=== PATIENT | female | born 1960 | race Caucasian/White ===

== ENCOUNTER → 2017-08-20 14:42 | Outpatient (CLI) | payer MEDICARE, MEDICAID, SELFPAY ==
[2017-08-20 18:02] LABS: Hematocrit 45.1 % (37-47); Mean Corpuscular Hgb 29.4 pg (27.0-32.0); Mean Corpuscular Volume 94.7 fL (81-99); Mean Platelet Vol. 12.5 fl (6.2-12.0); Platelet Count 231 K/mm3 (150-450); RBC Distribution Width CV 13.1 % (11.6-14.6); RBC Distribution Width SD 44.9 fl (35.1-43.9); Red Blood Count 4.76 M/mm3 (4.2-5.4); White Blood Count 8.9 K/mm3 (4.4-11.0)
[2017-08-20 18:22] LABS: Scan Indicated on CBC? Y/N NO
[2017-08-20 18:24] LABS: AST(SGOT) 17 U/L (15-37); Alanine Aminotransfer ALT/SGPT 18 U/L (13-56); Albumin, Serum 4.1 g/dL (3.2-5.0); Alkaline Phosphatase 91 U/L (45-117); Anion Gap 11 (5-15); BUN 15 mg/dL (7-18); BUN/Creat Ratio 17.5 RATIO (10-20); Calcium,Total 9.1 mg/dL (8.5-10.1); Chloride 105 mmol/L (98-107); Creatinine, Serum 0.86 mg/dL (0.55-1.02); EST Glomerular Filtration Rate 73 mL/min (>60); Est Glom Filt Rate - Afr Amer 88 mL/min (>60); Globulin 4.1 g/dL (2.2-4.2); Glucose 238 mg/dL (74-106); Protein, Total 8.2 g/dL (6.4-8.2); Sodium Level 139 mmol/L (136-145); Thyroid Stim Hormone (TSH) 0.43 uIU/mL (0.358-3.74)
[2017-08-20 18:32] LABS: Hemoglobin A1c 7.5 % (4.2-6.3)
[2017-08-20 18:35] LABS: Vitamin B12 > 2000 pg/mL (211-911)
== END ==
PROVIDERS: Family Provider Family Medicine; PCP Family Medicine; Visit Provider Family Medicine
DX: F32.9 Major depressive disorder, single episode, unspecified (principal); E11.9 Type 2 diabetes mellitus without complications; E53.8 Deficiency of other specified B group vitamins; E55.9 Vitamin D deficiency, unspecified
CPT/HCPCS: 36415; 80053; 82306; 82607; 83036; 84443; 85027

== ENCOUNTER 2017-11-14 23:32 | Emergency (ER) | payer MEDICARE, MEDICAID, SELFPAY ==
[2017-11-14 23:32] VITALS: BP 129/87; PULSE 75; RESP 15; TEMP 36.2; BMI 29.2
[2017-11-14 23:50] LABS: Bedside Glucose 472 mg/dL (70-110)
--- NOTE | 2017-11-14 23:56 | ED.DCSUM_ITS ---
- ER Visit Summary Date of Service: 11/14/17 Chief Complaint: Elevated blood glucose History of Present Illness: The patient is a 57 F here with daughter evaluation elevated blood glucose. Patient zpa-zyummut-xarxdomhl diabetic. She is on metformin thousand milligrams twice daily along with Januvia daily. No missed doses. This is been her regimen for last 2 years. Daughter states today when she came home patient appear to be disorientated, clammy. Vital glucose check is increase from 322 440 at 11 PM. Normal blood glucose in the 120s. Denies any changes in diet. No upper respiratory symptoms. Patient states has increasing thirst. Daughter states this has diarrhea the past 1-2 weeks, 5-6 episodes a day, however patient states last loose stool was yesterday. No recent antibiotics. Nausea without vomiting. No fever, chills, sweats. Patient denies any urinary symptoms. Physical Examination: General: Alert and oriented ?3, no acute distress HEENT: Normocephalic, atraumatic. Dry mucosa membranes Neck: supple, nontender. Cardiovascular: Regular rate and rhythm, no murmurs Respiratory: Normal breath sounds, symmetric, no distress Abdomen: Soft, nontender, nondistended Extremities: Nontender, no edema, pulses intact ?4 Neuro: no focal neurological deficits. Test Results: BG T4 72. Hemoglobin 14. FVC 8.9. Creatinine 1.01. Glucose 421 , anion gap 7. Potassium 4.1. Ketone negative. UA leukocytes 25. Urine culture pending. Emergency Department Course and Treatment: Patient alert oriented ?3 in my evaluation. Due to elevated glucose, DKA workup initiated. This was negative from labs. Normal gap and negative ketones. Due to dry mucosa membranes initially order for 2 L of fluid. However IV stopped working, labs returned noting negative. She is given oral Zofran along with p.o. fluids. Recheck sugars prior to p.o. fluids at 369. She will continue oral fluids I will give her 10 units of subcu insulin, will recheck her sugars. Discussed with patient and daughter, monitor sugars and call PCP for follow-up after the weekend for adjustments of medications as needed. She is to return if any worsening symptoms. Patient is clinically improved. All questions were answered. Treatment Plan: [] Disposition: Discharge Impression: Hyperglycemia- stable This note was generated with [employer] software. It may contain incorrect words, spelling, and punctuation that were not noted in review of the chart prior to signing ED Disposition - Plan for ED Patient: Disposition: Home or Assisted Living Chief Complaint: Hyperglycemia Diagnosis: Hyperglycemia Instructions: ED Hyperglycemia Diabetic Prescriptions: Ondansetron [Zofran Odt] 4 mg PO Q8H PRN PRN #10 tablet PRN Reason: Nausea Referrals: Clemente Randhawa MD [Primary Care Provider] - 3-5 Days Additional Instructions: Monitor your sugars at home. Take your home medications. Follow-up with your doctor for adjustments of medications as needed. Return if any worsening symptoms.
[2017-11-15 00:19] LABS: Absolute Lymphocyte Count 2.49 X10^3/ul (0.83-4.51); Absolute Neutrophil Count 5.5 X10^3/uL (2.0-7.7); Basophil# 0.02 X10^3/uL; Basophil% 0.2 % (0-1); Eosinophil# 0.11 X10^3/uL; Eosinophils% 1.2 % (0-5); Hematocrit 41.7 % (37-47); Lymphocyte # 2.49 X10^3/ul (4.0); Mean Corp Hgb Conc 33.6 g/gl (32-36); Mean Corpuscular Volume 92.5 fL (81-99); Monocyte# 0.76 X10^3/uL; Monocyte% 8.6 % (0-10); Neutrophil # 5.48 X10^3/uL (2.7-7.7); Neutrophil % 61.8 % (47-70); Platelet Count 181 K/mm3 (150-450); RBC Distribution Width CV 12.6 % (11.6-14.6); RBC Distribution Width SD 41.8 fl (35.1-43.9); Red Blood Count 4.51 M/mm3 (4.2-5.4); White Blood Count 8.9 K/mm3 (4.4-11.0)
[2017-11-15 00:24] LABS: POSITIVE COUNT NO; POSITIVE DIFFERENTIAL NO; POSITIVE MORPHOLOGY NO
[2017-11-15 00:34] LABS: Anion Gap 7 (5-15); BUN 10 mg/dL (7-18); BUN/Creat Ratio 9.9 RATIO (10-20); Calcium,Total 8.9 mg/dL (8.5-10.1); Chloride 100 mmol/L (98-107); Creatinine, Serum 1.01 mg/dL (0.55-1.02); EST Glomerular Filtration Rate 60 mL/min (>60); Est Glom Filt Rate - Afr Amer 73 mL/min (>60); Estimated Creatinine Clearance 60.48 ml/min; Glucose 421 mg/dL (74-106); Potassium 4.1 mmol/L (3.5-5.1); Sodium Level 132 mmol/L (136-145)
[2017-11-15 00:35] LABS: Mucous, Urine 0 SEEN /hpf (<or=2+); Red Blood Cells-Urine 0 SEEN /hpf (0-5)
[2017-11-15 00:36] LABS: Glucose, Dipstick 1000 mg/dl (Normal); Ketone-Dipstick 5 mg/dl (Negative); Leukocyte Esterase-Dipstick 25 /ul (Negative); Nitrite-Dipstick Negative (Negative); Occult Blood-Urine 10 /ul (Negative); Protein-Dipstick 15 mg/dl (Negative); Specific Gravity, Urine 1.015 (1.002-1.030); Urine Bilirubin Dipstick Negative (Negative); Urine Clarity Sl. Cloudy (Clear); Urine Urobilinogen Normal (Normal); Urine pH 6.5 (5.0 - 8.0)
[2017-11-15 00:39] LABS: Color, Urine SEE COMMENT BELOW (Yellow)
[2017-11-15 00:41] LABS: Bacteria RARE /hpf (None Seen); Squamous Epithelial Cells - UA 0-5 SEEN /hpf (5-10); White Blood Cells 0-5 SEEN /hpf (0-5)
[2017-11-15 00:42] LABS: Amorphous Sediment R
[2017-11-15 01:16] LABS: Bedside Glucose 369 mg/dL (70-110)
[2017-11-15] MEDS: Ondansetron ODT 4 MG Tablet 8 MG PO (01:19)
[2017-11-15] MEDS: Insulin Lispro 100 UNIT/ML INSULN.PEN 10 UNIT SC (01:22)
[2017-11-15 02:45] LABS: Bedside Glucose 330 mg/dL (70-110)
[2017-11-15 02:53] VITALS: BP 90/61; PULSE 78; RESP 18; O2SAT 95
--- NOTE | 2017-11-15 02:54 | ED.RN ---
PT LOST HER IV SO NO FURTHERIV FLUIDS OR ZOFRAN GIVEN. AWARE.
== END 2017-11-15 02:54 | disposition home or self-care (01) ==
PROVIDERS: Emergency Provider Emergency Medicine; Family Provider Family Medicine; PCP Family Medicine
DX: E11.65 Type 2 diabetes mellitus with hyperglycemia (principal); G20 Parkinson's disease; Z79.84 Long term (current) use of oral hypoglycemic drugs; Z79.899 Other long term (current) drug therapy
CPT/HCPCS: 80048; 81001; 82009; 82962; 85025; 87086; 87088; 99284; J7030; A4216; J2405

== ENCOUNTER → 2017-11-26 12:44 | Outpatient (CLI) | payer MEDICARE, MEDICAID, SELFPAY ==
[2017-11-26 14:06] LABS: Bacteria 0 SEEN /hpf (None Seen)
[2017-11-26 14:18] LABS: Anion Gap 7 (5-15); BUN 13 mg/dL (7-18); BUN/Creat Ratio 14.6 RATIO (10-20); Calcium,Total 8.8 mg/dL (8.5-10.1); Chloride 103 mmol/L (98-107); Creatinine, Serum 0.89 mg/dL (0.55-1.02); EST Glomerular Filtration Rate 69 mL/min (>60); Est Glom Filt Rate - Afr Amer 84 mL/min (>60); Glucose 166 mg/dL (74-106); Potassium 3.9 mmol/L (3.5-5.1); Sodium Level 137 mmol/L (136-145)
[2017-11-26 14:30] LABS: Color, Urine Amber (Yellow); Glucose, Dipstick Normal (Normal); Ketone-Dipstick 15 mg/dl (Negative); Leukocyte Esterase-Dipstick 25 /ul (Negative); Nitrite-Dipstick Negative (Negative); Occult Blood-Urine 10 /ul (Negative); Protein-Dipstick 30 mg/dl (Negative); Urine Clarity Sl. Cloudy (Clear); Urine Urobilinogen 1 mg/dl (Normal)
[2017-11-26 14:32] LABS: Urine Bilirubin Dipstick 3 mg/dL (Negative)
[2017-11-26 14:49] LABS: Calcium Oxalate Crystals Ur 2+ /hpf (<or=2+); Mucous, Urine 2+ /hpf (<or=2+); Red Blood Cells-Urine 0-5 SEEN /hpf (0-5); Squamous Epithelial Cells - UA 0-5 SEEN /hpf (5-10); White Blood Cells 0-5 SEEN /hpf (0-5)
== END ==
PROVIDERS: Family Provider Family Medicine; PCP Family Medicine; Visit Provider Family Medicine
DX: E11.9 Type 2 diabetes mellitus without complications (principal); R82.90 Unspecified abnormal findings in urine
CPT/HCPCS: 36415; 80048; 81001; 87086; 87088

== ENCOUNTER → 2017-12-05 09:31 | Outpatient (CLI) | payer MEDICARE, MEDICAID, SELFPAY ==
--- NOTE | 2017-12-05 09:36 | RAD_ITS ---
STUDY: X-RAY - LEFT HAND REASON FOR EXAM: Female, 57 years old. Osteoarthritic change. TECHNIQUE: 2 view(s) of the hand. COMPARISON: None. FINDINGS: There is joint space narrowing of the radiocarpal articulation consistent with degenerative arthrosis. Normal distal radioulnar joint. Normal visualized carpal bones. Normal carpal articulations There is degenerative arthrosis of the carpometacarpal (CMC) articulation of the thumb. Normal second through fifth carpometacarpal joints. Normal metacarpi. There is degenerative arthrosis of the metacarpophalangeal (MCP) joints. Normal interphalangeal joint of the thumb. Normal proximal and distal phalanges of the thumb. Normal metacarpophalangeal joints of the second through fifth fingers. Normal proximal and distal interphalangeal joints of the second through fifth fingers. Normal phalanges of the second through fifth fingers. The soft tissue structures are unremarkable. RAD/Hand 2 Views IMPRESSION: Mild arthritic changes of the left hand. Electronically Signed: Lefty Nichole DO at 17:31 EDT Tel [phone], Service support ,
--- NOTE | 2017-12-05 09:36 | RAD_ITS ---
STUDY: X-RAY - RIGHT HAND REASON FOR EXAM: Female, 57 years old. Osteoarthritic change. TECHNIQUE: 2 view(s) of the hand. COMPARISON: None. FINDINGS: There is joint space narrowing of the radiocarpal articulation consistent with degenerative arthrosis. Normal distal radioulnar joint. Normal visualized carpal bones. Normal carpal articulations There is degenerative arthrosis of the carpometacarpal (CMC) articulation of the thumb. Normal second through fifth carpometacarpal joints. Normal metacarpi. There is degenerative arthrosis of the metacarpophalangeal (MCP) joints. Normal interphalangeal joint of the thumb. Normal proximal and distal phalanges of the thumb. Normal metacarpophalangeal joints of the second through fifth fingers. Normal proximal and distal interphalangeal joints of the second through fifth fingers. Normal phalanges of the second through fifth fingers. The soft tissue structures are unremarkable. RAD/Hand 2 Views IMPRESSION: Minimal arthritic changes of the hand and wrist. Electronically Signed: Lefty Nichole DO at 17:31 EDT Tel [phone], Service support ,
--- NOTE | 2017-12-05 09:36 | RAD_ITS ---
STUDY: X-RAY - RIGHT FOOT CLINICAL: Female, 57 years old. Osteoarthritic change. TECHNIQUE: 2 view(s) of the foot. COMPARISON: None. FINDINGS: There is an enthesophyte involving the posterior superior calcaneus at the site of insertion of the Achilles tendon. Normal talus and tarsal bones. Normal visualized subtalar, talonavicular, calcaneocuboid, tarsal and tarsometatarsal articulations. Normal metatarsi. There is mild degenerative arthrosis of the metatarsophalangeal joint of the hallux . Normal tibial and fibular sesamoid bones. Normal phalanges of the great toe. Normal second through fifth metatarsophalangeal joints. There is arthrosis of interphalangeal joints of the lesser toes. There is no fracture or dislocation. The soft tissue structures are unremarkable. 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 Electronically Signed: Lefty Nichole DO at 17:30 EDT Tel [phone], Service support ,
--- NOTE | 2017-12-05 09:36 | RAD_ITS ---
STUDY: X-RAY - LEFT FOOT CLINICAL: Female, 57 years old. Osteoarthritic changes. TECHNIQUE: 2 view(s) of the foot. COMPARISON: None. FINDINGS: Normal talus and tarsal bones. There are enthesophytes at the insertions of the Achilles tendon and plantar aponeurosis upon an otherwise normal calcaneus. Normal visualized subtalar, talonavicular, calcaneocuboid, tarsal and tarsometatarsal articulations. Normal first through fourth metatarsi. There is a healed fracture of the distal fifth metatarsal. There is mild degenerative arthrosis of the metatarsophalangeal joint of the hallux . Normal tibial and fibular sesamoid bones. Normal interphalangeal joint of the great toe. Normal phalanges of the great toe. Normal second through fifth metatarsophalangeal joints. There is arthrosis of the interphalangeal joints of the lesser toes. Normal phalanges of the lesser toes. The soft tissue structures are unremarkable. RAD/Foot 2 Views IMPRESSION: Degenerative changes left foot. Electronically Signed: Lefty Nichole DO at 18:37 EDT Tel [phone], Service support ,
== END ==
PROVIDERS: Family Provider Family Medicine; PCP Family Medicine
DX: M19.042 Primary osteoarthritis, left hand (principal); M19.041 Primary osteoarthritis, right hand; M19.072 Primary osteoarthritis, left ankle and foot; M19.071 Primary osteoarthritis, right ankle and foot
CPT/HCPCS: 73120; 73620

== ENCOUNTER → 2019-01-27 14:06 | Outpatient (CLI) | payer MEDICARE, MEDICAID, SELFPAY ==
[2018-10-02 13:07] VITALS: BMI 29.2
[2019-01-27 16:19] LABS: Albumin, Serum 4.3 g/dL (3.2-5.0); BUN 8 mg/dL (7-18); BUN/Creat Ratio 9.3 RATIO (10-20); Creatinine, Serum 0.86 mg/dL (0.55-1.02); EST Glomerular Filtration Rate 72 mL/min (>60); Est Glom Filt Rate - Afr Amer 87 mL/min (>60); Glucose 185 mg/dL (74-106); Protein, Total 8.6 g/dL (6.4-8.2)
[2019-01-27 16:20] LABS: AST(SGOT) 22 U/L (15-37); Alanine Aminotransfer ALT/SGPT 16 U/L (13-56); Alkaline Phosphatase 102 U/L (45-117); Anion Gap 9 (5-15); Calcium,Total 9.3 mg/dL (8.5-10.1); Chloride 100 mmol/L (98-107); Cholesterol 162 mg/dL (200); Globulin 4.3 g/dL (2.2-4.2); High Density Lipoprotein 45 mg/dL; Potassium 3.5 mmol/L (3.5-5.1); Sodium Level 137 mmol/L (136-145); Thyroid Stim Hormone (TSH) 0.76 uIU/mL (0.358-3.74); Triglycerides 211 mg/dL; Very Low Density Lipoprotein 42 mg/dL (5-40)
== END ==
PROVIDERS: Family Provider Family Medicine; PCP Family Medicine; Referring Provider Family Medicine; Visit Provider Family Medicine
DX: E11.9 Type 2 diabetes mellitus without complications (principal)
CPT/HCPCS: 36415; 80053; 80061; 84443

== ENCOUNTER 2019-03-04 01:45 | Inpatient (IN) | payer MEDICARE, MEDICAID, SELFPAY ==
[2018-10-02 13:07] VITALS: BMI 29.2
[2019-03-04] VITALS (36 sets, daily range): BP systolic 64–111; BP diastolic 36–85; PULSE 85–105; RESP 10–22; TEMP 36.4–37.1; O2SAT 90–100; BMI 31.0; BMI 31.1
--- NOTE | 2019-03-04 01:51 | CT_ITS ---
STUDY: CT BRAIN WITHOUT CONTRAST REASON FOR EXAM: Female, 58 years old. Trauma RADIATION DOSAGE (If Supplied By Facility): CTDIvol = ( 44.99 ) mGy, DLP = ( 812.98 ) mGycm TECHNIQUE: Transaxial CT imaging of the brain was performed without administration of intravenous contrast material. Individualized dose optimization techniques were used for this CT. COMPARISON: No relevant priors. FINDINGS: Normal soft tissue structures. There is hyperostosis frontalis internus. Normal size ventricles and extra-axial spaces for the patient's age. Normal white matter tracts of the cerebral hemispheres. Normal basal ganglia and thalami. Normal brainstem. Normal cerebellum. 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 An area of prior infarct or neural glial cystic structure could also be considered. There is no intracranial hemorrhage. There are no findings of an acute ischemic infarction. Normal visualized paranasal sinuses. CT/Brain/Head without Contrast IMPRESSION: No acute territorial infarct or intracranial hemorrhage identified. If patient's symptomology persists or there is continuing clinical concern MRI or follow-up CT scan performed. Electronically Signed: Mahesh Richter, at 3:04 EDT Tel , Service support ,
--- NOTE | 2019-03-04 01:51 | RAD_ITS ---
STUDY: X-RAY CHEST REASON FOR EXAM: Female, 58 years old. Hypotension TECHNIQUE: Single frontal view of the chest. COMPARISON: None. FINDINGS: The lungs are clear and expanded. There is no demonstrated pleural abnormality. Normal size heart. Normal mediastinum and ozzie. Normal visualized pulmonary arteries. Normal visualized aortic arch and descending thoracic aorta. There are diffuse degenerative changes of the visualized thoracic spine. There is degenerative osteoarthritis of the bilateral shoulders. There is no demonstrated abnormality of the visualized soft tissue structures of the upper abdomen. RAD/Chest 1 View (Portable) IMPRESSION: Degenerative changes, as described above. No demonstrated acute cardiopulmonary process. Electronically Signed: Mahesh Richter, at 2:54 EDT Tel , Service support ,
--- NOTE | 2019-03-04 01:52 | EKG12_ITS ---
Test Reason : HYPOTENSION Blood Pressure : / mmHG Vent. Rate : 095 BPM Atrial Rate : 095 BPM P-R Int : 146 ms QRS Dur : 078 ms QT Int : 348 ms P-R-T Axes : 041 039 053 degrees QTc Int : 437 ms Normal sinus rhythm Normal ECG Confirmed by JEM CORBETT, ISAI ([id number]), scientific publications editor [employer]OR[employer] ([id number]) on 03/05/2019 1:27:09 PM Referred By: Mason Stone Confirmed By:CAROLINA PARISH MD
--- NOTE | 2019-03-04 01:52 | CT_ITS ---
STUDY: CT CERVICAL SPINE WITHOUT CONTRAST REASON FOR EXAM: Female, 58 years old. Trauma RADIATION DOSAGE (If Supplied By Facility): CTDIvol = ( 27.58 ) mGy, DLP = ( 500.98 ) mGycm TECHNIQUE: High resolution transaxial imaging was performed without contrast material. Sagittal and coronal images were reconstructed. Individualized dose optimization techniques were used for this CT. COMPARISON: September 18, 2015 FINDINGS: Multilevel degenerative changes. Straightening of the normal cervical lordosis. Facet hypertrophy. No acute fracture or subluxation. Moderate neural foraminal narrowing on the left C3-C4. Normal visualized soft tissue structures. CT/Spine Cervical without Contras IMPRESSION: Multilevel degenerative changes. No acute fractures or subluxation. Electronically Signed: Mahesh Richter, at 3:08 EDT Tel , Service support ,
[2019-03-04] MEDS: 0.9% Normal Saline 1,000 ML 1000 ML IV (01:56)
[2019-03-04 01:59] LABS: Absolute Lymphocyte Count 3.04 X10^3/uL (0.83-4.51); Absolute Neutrophil Count 8.4 X10^3/uL (2.0-7.7); Basophil# 0.05 X10^3/uL; Basophil% 0.4 % (0-1); Eosinophil# 0.08 X10^3/uL; Eosinophils% 0.6 % (0-5); Hematocrit 40.9 % (37-47); Hemoglobin 12.9 g/dL (12.0-15.0); Lymphocyte # 3.04 X10^3/ul (4.0); Lymphocyte % 23.9 % (19-41); Mean Corp Hgb Conc 31.5 g/dL (32-36); Mean Corpuscular Hgb 30.9 pg (27.0-32.0); Mean Corpuscular Volume 98.1 fL (81-99); Mean Platelet Vol. 12.3 fl (6.2-12.0); Monocyte# 1.09 X10^3/uL; Monocyte% 8.6 % (0-10); NRBC Flagged by Analyzer 0 % (0-5); Neutrophil # 8.42 X10^3/uL (2.7-7.7); Neutrophil % 66.2 % (47-70); Platelet Count 242 K/mm3 (150-450); RBC Distribution Width CV 12.2 % (11.6-14.6); RBC Distribution Width SD 44.5 fl (35.1-43.9); Red Blood Count 4.17 M/mm3 (4.2-5.4); White Blood Count 12.7 K/mm3 (4.4-11.0)
[2019-03-04 02:23] LABS: ALB/GLOB Ratio 0.9 RATIO (0.9-2.4); AST(SGOT) 7 U/L (15-37); Alanine Aminotransfer ALT/SGPT 8 U/L (13-56); Albumin, Serum 3.7 g/dL (3.2-5.0); Alkaline Phosphatase 97 U/L (45-117); Anion Gap 8 (5-15); BUN 73 mg/dL (7-18); BUN/Creat Ratio 18.8 RATIO (10-20); Calcium,Total 8.6 mg/dL (8.5-10.1); Chloride 103 mmol/L (98-107); Creatinine, Serum 3.89 mg/dL (0.55-1.02); EST Glomerular Filtration Rate 13 mL/min (>60); Est Glom Filt Rate - Afr Amer 15 mL/min (>60); Estimated Creatinine Clearance 15.52 ml/min; Globulin 3.9 g/dL (2.2-4.2); Glucose 120 mg/dL (74-106); Potassium 5.3 mmol/L (3.5-5.1); Protein, Total 7.6 g/dL (6.4-8.2); Sodium Level 137 mmol/L (136-145)
[2019-03-04 02:25] LABS: Glucose, Dipstick 100 mg/dl (Normal); Ketone-Dipstick 5 mg/dl (Negative); Leukocyte Esterase-Dipstick 25 /ul (Negative); Nitrite-Dipstick Negative (Negative); Occult Blood-Urine 10 /ul (Negative); Protein-Dipstick 30 mg/dl (Negative); Specific Gravity, Urine 1.025 (1.002-1.030); Urine Urobilinogen Normal (Normal)
[2019-03-04 02:30] LABS: Lactic Acid 4.6 mmol/L (0.4-2.0)
[2019-03-04 02:33] LABS: Color, Urine Yellow (Yellow); Urine Bilirubin Dipstick 3 mg/dL (Negative); Urine Clarity Sl Cloudy (Clear)
[2019-03-04] MEDS: 0.9% Normal Saline 1,000 ML 999 ML IV ×2 (02:33→02:38)
[2019-03-04 02:34] LABS: Mucous, Urine 1+ /hpf (<or=2+); Squamous Epithelial Cells - UA 0-5 SEEN /hpf (5-10)
[2019-03-04 02:35] LABS: Amorphous Sediment 1+; Bacteria RARE /hpf (None Seen); Coarse Granular Cast 0-5 SEEN /lpf (0-5 /lpf); Hyaline Cast 0-5 SEEN /lpf (0-5); Red Blood Cells-Urine 0-5 SEEN /hpf (0-5); White Blood Cells 0-5 SEEN /hpf (0-5)
[2019-03-04 02:44] LABS: CPK Total, Creatine Kinase 51 U/L (26-192)
--- NOTE | 2019-03-04 02:45 | ED.DCSUM_ITS ---
- ER Visit Summary Date of Service: 03/04/19 Chief Complaint: Weakness History of Present Illness: The patient is a 58 F presenting with generalized weakness. Patient states this has been ongoing for the past 3 days. She states she has been lightheaded. States when she tries to stand she feels lightheaded and has fallen 3 times. She denies injury with falls. She has hit her head. She denies loss of consciousness. Denies syncope. Denies chest pain or shortness of breath. Denies abdominal pain. Her blood sugar has been reading high at home. Family states that she has been hallucinating and has been confused. She denies fever. Denies other complaints. Physical Examination: Vitals are stable. Blood pressure 91/54, heart rate 95, pulse ox 96% on room air. Patient is afebrile. Alert no acute distress. HEENT exam is unremarkable. Neck is supple, nontender Lungs are clear and equal bilaterally. Heart is regular rate and rhythm. Abdomen is soft nontender nondistended. No guarding or rebound Extremities are unremarkable. Skin is warm and dry. NIH 2: LOC questions, decreased sensation left arm Remainder of exam is unremarkable. Emergency Department Course and Treatment: Patient was given IV fluids. EKG is sinus rhythm rate of 95 with no acute ischemic changes. CBC shows white count 12.7. Chemistries show potassium 5.3, glucose 120, BUN 73, creatinine 3.89. Urinalysis unremarkable. Troponin is negative. CK normal. Acetone negative. Lactic acid 4.6. Blood cultures were sent. Chest x-ray shows no acute process. CT head shows no acute territorial infarct or intracranial hemorrhage identified. CT cervical spine shows multilevel degenerative changes. No acute fractures or subluxation. She continues to be hypotensive after 30 cc/kg bolus. She was consented for central line placement. Right IJ was placed with Seldinger technique. She was given Levaquin, tobramycin, vancomycin per protocol for septic shock with unknown source. Discussed with the hospitalist for admission. Disposition: Admission Impression: Septic shock, DEBORA, change in mental status This note was generated with [employer] software. It may contain incorrect words, spelling, and punctuation that were not noted in review of the chart prior to signing ED Disposition - Plan for ED Patient:
--- NOTE | 2019-03-04 04:11 | RAD_ITS ---
STUDY: X-RAY CHEST REASON FOR EXAM: Female, 58 years old. Line placement. TECHNIQUE: AP portable chest. COMPARISON: 03/04/2019 at 2:17 AM. FINDINGS: Right internal jugular central line tip overlying the right atrium. The lungs are clear and expanded. There is no demonstrated pleural abnormality. No pneumothorax. Normal size heart. Normal mediastinum and ozzie. Normal visualized pulmonary arteries. Normal visualized aortic arch and descending thoracic aorta. Osseous structures unchanged. There is no demonstrated abnormality of the visualized soft tissue structures of the upper abdomen. RAD/CXR for Line Placement IMPRESSION: No acute cardiopulmonary disease. Right sided central line tip overlying the base of the right atrium. Electronically Signed: Stephon Hayden MD at 4:55 EDT , Service support ,
--- NOTE | 2019-03-04 04:18 | HP.PCM_ITS ---
Problem List (1) Septic shock Status: Acute History of Present Illness Date of Admission: 03/04/19 Chief Complaint: lightheadness with multiple falls The patient is a 58 year old F with a significant history of pseudobulbar affect; diabetes mellitus; hypertension; and Parkinson's disease who presented to the emergency department with lightheadedness and multiple falls that started about 2 days ago. She reports falling multiple times and hitting her bed and also the wall. Associated with her symptoms is loose stools; confusion and visual hallucinations. Patient was confused to the extent that she could not identify one of her daughters. She has been noted to be having jerking movements. Patient reports decreased urine output. At the emergency department patient was found to have severely low blood pressure and she received IV fluids per septic shock protocol. Also her lactic acid was noted to be more than 4. She had elevated white counts and severely elevated creatinine. Initial [facility] emergency department was scored as 2 because of failure to answer all level of conscious question appropriately and with sensation changes to her left upper extremity 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 Parkinson disease G20 Hypertension I10 Lupus L93.0 Sleep apnea G47.30 H/O: hysterectomy Z98.890, Z90.710 Allergies indomethacin [From Indocin] Allergy (Verified 10/02/18 13:01) Rash indomethacin sodium [From Indocin] Allergy (Verified 10/02/18 13:01) Rash Penicillins Allergy (Verified 10/02/18 13:01) Rash clarithromycin [From Biaxin] Adverse Reaction (Verified 10/02/18 13:01) Diarrhea Home Medications: Ambulatory Orders Medication Instructions Recorded Propranolol HCl [Inderal LA (Beta 60 mg PO BID 03/17/13 Connor)] Rasagiline Mesylate [Azilect] 1 mg PO DAILY 03/17/13 metFORMIN (XR) [Glucophage Xr] 1,000 mg PO BID 03/17/13 Nuedexta 20/10 1 tab PO DAILY 03/18/13 Carbidopa/Levodopa [Sinemet Cr 1 tab PO BID 01/15/15 25-100 Tablet] morphine SR tablet [Ms Contin] 15 mg PO BID 01/15/15 Carbidopa/Levodopa/Entacapone 1 ea PO BID 05/21/16 [Stalevo 150 Tablet] Oxycodone HCl/Acetaminophen 1 - 2 tab PO Q6H PRN PRN #40 tab 02/05/17 [Percocet 5/325] Ondansetron [Zofran Odt] 4 mg PO Q8H PRN PRN #10 tablet 11/15/17 Clonazepam 1 mg PO QHS 03/04/19 Dulaglutide [Trulicity] 0.75 mg SQ QWEEK 03/04/19 Escitalopram Oxalate [Lexapro] 10 mg PO DAILY 03/04/19 Esomeprazole Mag Trihydrate 40 mg PO DAILY 03/04/19 [Nexium] Gabapentin 600 mg PO TID 03/04/19 Glimepiride [Amaryl] 1 mg PO DAILY 03/04/19 Lisinopril 5 mg PO DAILY 03/04/19 Surgical History: Surgical History (Last Reviewed 03/04/19 @ 06:20 by Mason Stone MD) History of cholecystectomy Z90.49 History of knee surgery Z98.890 History of back surgery Z98.890 x3 S/P cholecystectomy Z90.49 S/P left knee surgery Z98.890 Status post arthroscopy of hip Z98.890 left 02/05/17 Status post carpal tunnel release Z98.890 right and left 10/18/11 Surgical History: cholecystectomy, hysterectomy Psychiatric History: No pertinent psych hx Lives: With Family Smoking Status: Never smoker Alcohol: None - *Family History Maternal Family History: Family History (Last Reviewed 03/04/19 @ 06:30 by Mason Stone MD) Brother Heart disease Mother Osteoarthritis Review of Systems Constitutional: Reports: Anorexia. Denies: Chills, Fever, Weight Change HEENT: Denies: Head Aches, Sinus Congestion, Sinus Drainage Cardiovascular: Reports: Light Headedness. Denies: Chest Pain, Palpitations Respiratory: Denies: Cough, Shortness of breath at rest, Sputum production Gastrointestinal: Reports: Abdominal Pain, Diarrhea. Denies: Nausea, Vomiting Genitourinary: Reports: Frequency - decreased frequency. Denies: Dysuria Musculoskeletal: Denies: Joint Pain, Joint Tenderness Skin: Denies: Rash, Wounds Neurological: Reports: Confusion. Denies: Focal weakness, Numbness, Tingling Psychiatric: Denies: Anxiety, Depression, Homicidal Ideations, Suicidal Ideations Hematologic/ Lymphatic: Denies: Easy Bruising, Easy Bleeding VTE Information - Inpt Only VTE Present on Admission: No VTE Mechan Device Prophylaxis: None VTE Pharm Prophylaxis ordered?: Yes Patient Problems: Active and Suspected Problems (Last Reviewed 03/04/19 @ 06:29 by Mason Stone MD) Septic shock (Acute) - Physical Exam General: Alert, Cooperative, - - Patient knows the month but not the year. She spontaneous mentioned her name, stating her last name as her maiden name and was corrected by family. HEENT: Atraumatic, PERRLA, EOMI, Normocephalic Neck: Supple, No JVD, Negative Carotid Bruits Lungs: Clear to auscultation, Normal air movement Cardiovascular: Regular rate, No murmurs Abdomen: Bowel Sounds Present, Soft, Non Tender Extremities: No edema, Capillary Refill Less than 3 Seconds Skin: No rashes, No breakdown, - - cold extremities; upper and lower Musculoskeletal: No Tenderness to Palpation of Joints or Extremities Neurological: Cranial nerves II-XII grossly intact, - - Decreased sensation to left extremities Psych/Mental Status: Normal Affect, Appropriate Vital Signs Temp Pulse Resp BP Pulse Ox 98.1 F 88 18 72/48 L 98 03/04/19 02:23 03/04/19 03:13 03/04/19 03:13 03/04/19 03:13 03/04/19 03:13 Oxygen Delivery Method Room Air Weight: 89.9 kg Body Mass Index (BMI) 31.0 Finger Stick Blood Glucose 330 Intake and Output for Last 24 Hours 03/02/19 03/03/19 03/04/19 23:59 23:59 23:59 Intake Total 1000 / 1000 Balance 1000 / 1000 Laboratory Tests Past 24 Hrs 03/04/19 03/04/19 03/04/19 01:52 01:52 01:52 WBC 12.7 H RBC 4.17 L Hgb 12.9 Hct 40.9 MCV 98.1 MCH 30.9 MCHC 31.5 L RDW Std Deviation 44.5 H RDW Coeff of Arben 12.2 Plt Count 242 MPV 12.3 H Immature Gran % (Auto) 0.300 Neut % (Auto) 66.2 Lymph % (Auto) 23.9 [place] % (Auto) 8.6 Eos % (Auto) 0.6 Baso % (Auto) 0.4 Absolute Neuts (auto) 8.4 H Absolute Lymphs (auto) 3.04 Nucleated RBC % 0 Sodium 137 Potassium 5.3 H Chloride 103 Carbon Dioxide 26.0 Anion Gap 8 BUN 73 H Creatinine 3.89 H Estim Creat Clear Calc 15.52 Est GFR (MDRD) Af Amer 15 L Est GFR (MDRD) Non-Af 13 L BUN/Creatinine Ratio 18.8 Glucose 120 H Lactic Acid 4.6 H* Calcium 8.6 Total Bilirubin 0.50 AST 7 L ALT 8 L Alkaline Phosphatase 97 Total Creatine Kinase Troponin I < 0.015 Total Protein 7.6 Albumin 3.7 Globulin 3.9 Albumin/Globulin Ratio 0.9 Urine Color Urine Clarity Urine pH Ur Specific [place] Urine Protein Urine Glucose (UA) Urine Ketones Urine Occult Blood Urine Nitrite Urine Bilirubin Urine Urobilinogen Ur Leukocyte Esterase Urine RBC Urine WBC Ur Squamous Epith Cells Amorphous Sediment Urine Bacteria Hyaline Casts Coarse Granular Casts Urine Mucus Acetone Level 03/04/19 03/04/19 03/04/19 01:52 01:52 02:10 WBC RBC Hgb Hct MCV MCH MCHC RDW Std Deviation RDW Coeff of Arben Plt Count MPV Immature Gran % (Auto) Neut % (Auto) Lymph % (Auto) [place] % (Auto) Eos % (Auto) Baso % (Auto) Absolute Neuts (auto) Absolute Lymphs (auto) Nucleated RBC % Sodium Potassium Chloride Carbon Dioxide Anion Gap BUN Creatinine Estim Creat Clear Calc Est GFR (MDRD) Af Amer Est GFR (MDRD) Non-Af BUN/Creatinine Ratio Glucose Lactic Acid Calcium Total Bilirubin AST ALT Alkaline Phosphatase Total Creatine Kinase 51 Troponin I Total Protein Albumin Globulin Albumin/Globulin Ratio Urine Color Yellow Urine Clarity Sl Cloudy Urine pH 5.0 Ur Specific [place] 1.025 Urine Protein 30 H Urine Glucose (UA) 100 H Urine Ketones 5 H Urine Occult Blood 10 H Urine Nitrite Negative Urine Bilirubin 3 H Urine Urobilinogen Normal Ur Leukocyte Esterase 25 H Urine RBC 0-5 SEEN Urine WBC 0-5 SEEN Ur Squamous Epith Cells 0-5 SEEN Amorphous Sediment 1+ Urine Bacteria RARE Hyaline Casts 0-5 SEEN Coarse Granular Casts 0-5 SEEN Urine Mucus 1+ Acetone Level NEGATIVE Assessment/Plan All Active Problems (Last Reviewed 03/04/19 @ 06:29 by Mason Stone MD) Septic shock (Acute) The patient is a 58 year old F with a significant history of pseudobulbar affect; diabetes mellitus; hypertension; and Parkinson's disease who presented to the emergency department with lightheadedness and multiple falls; loose stools; jerking movements; confusion; visual hallucinations; hypotension; leukocytosis; lactic acid of 4.6;: severely elevated creatinine consistent with septic shock without a clear etiology. Septic shock with unclear etiology Different diagnoses include cardiogenic shock; hypovolemic shock; hypotension secondary to medications; Shy-Drager syndrome or other. She reports that typically she is not hypotensive Received vancomycin; Levaquin and tobramycin emergency department. We will continue patient on vancomycin. Start aztreonam. Of note patient has allergy to penicillin where she breaks into hives. Last time she took penicillin was when she was about 5 years old Received IV fluids per septic shock protocol. Continue normal saline infusion at maintenance rate. Get surface echo Trend CBC and BMP Blood culture was obtained at the emergency department; follow. Get urine culture. Trend lactic acid Hold home metformin which could also be contributing to lactic acidosis. Hold home hypertensive medication Hold home morphine. We will continue oxycodone for chronic pain. Systems Developer consult DEBORA On presentation her creatinine was 3.89. Review of old records shows creatinine baseline around 0.85. BUN over creatinine is 18.8. Likely prerenal leading to ATN and/or ATN from toxic effects of sepsis Received normal saline bolus in the emergency department per septic shock protocol Maintenance normal saline infusion continued Trend BMP Avoid nephrotoxic's. Hyperkalemia She reports taking Lisinopril at home and this could contribute to her hyperkalemia Also her hyperkalemia could be from renal failure Received IVF per septic shock protocol. Continue maintenance IVF Trend BMP Diabetes Mellitus Presentation her blood glucose was within goal Hold home antihyperglycemic regimen. Accu-Chek qCHS and correction scale insulin ordered. Parkinson's disease Stalevo and Sinemet continued Depression and anxiety Lexapro continued GERD Protonix continued Neuropathy Will de-escalate dose of gabapentin due to DEBORA. Pseudobulbar effect Nuedexta continue DVT prophylaxis Subcutaneous Lovenox Code Visit Inpatient E&M: 43953 Init Hosp L3
[2019-03-04] MEDS: Dextrose 50%-Water 25 GM/50 ML DISP.SYRIN IV (04:30)
[2019-03-04] MEDS: levoFLOXacin IV 750 MG/150 ML BAG 100 MG IV (04:35)
--- NOTE | 2019-03-04 05:31 | RAD_ITS ---
STUDY: X-RAY CHEST REASON FOR EXAM: Female, 58 years old. Line placement TECHNIQUE: Single frontal view of the chest. COMPARISON: March 04, 2019 FINDINGS: EKG leads artifacts. Right internal jugular catheter tip projects over the right atrium. There has been some retraction from prior study. The lungs are clear and expanded. There is no demonstrated pleural abnormality. Normal size heart. Normal mediastinum and ozzie. Normal visualized pulmonary arteries. Normal visualized aortic arch and descending thoracic aorta. There are diffuse degenerative changes of the visualized thoracic spine. There is degenerative osteoarthritis of the bilateral shoulders. There is no demonstrated abnormality of the visualized soft tissue structures of the upper abdomen. RAD/CXR for Line Placement IMPRESSION: There is been some retraction of the internal jugular catheter on the right. The tip now projects over the upper right atrium just inferior to the cavoatrial junction. No pneumothorax identified. No acute cardiopulmonary disease. Electronically Signed: Mahesh Neelam, at 5:55 EDT Tel , Service support ,
--- NOTE | 2019-03-04 05:37 | SEPSISNOTE ---
Sepsis Note - Physical Exam/Vitals Subjective: Follow up of septic shock Objective: Brain CT 03/04/19 01:51 IMPRESSION: No acute territorial infarct or intracranial hemorrhage identified. If patient's symptomology persists or there is continuing clinical concern MRI or follow-up CT scan performed. Electronically Signed: Mahesh Trotterford, at 3:04 EDT Tel , Service support , Chest X-Ray 03/04/19 01:51 IMPRESSION: Degenerative changes, as described above. No demonstrated acute cardiopulmonary process. Electronically Signed: Mahesh Trotterford, at 2:54 EDT Tel , Service support , Cervical Spine CT 03/04/19 01:52 IMPRESSION: Multilevel degenerative changes. No acute fractures or subluxation. Electronically Signed: Mahesh Neelam, at 3:08 EDT Tel , Service support , Chest X-Ray 03/04/19 04:11 IMPRESSION: No acute cardiopulmonary disease. Right sided central line tip overlying the base of the right atrium. Electronically Signed: Stephon Hayden MD at 4:55 EDT , Service support , Temp Pulse Resp BP Pulse Ox 98.5 F 96 16 83/57 L 95 03/04/19 05:27 03/04/19 05:27 03/04/19 05:27 03/04/19 05:27 03/04/19 05:27 03/04/19 03/04/19 03/04/19 02:10 01:52 01:52 WBC RBC Hgb Hct MCV MCH MCHC RDW Std Deviation RDW Coeff of Arben Plt Count MPV Immature Gran % (Auto) Neut % (Auto) Lymph % (Auto) [place] % (Auto) Eos % (Auto) Baso % (Auto) Absolute Neuts (auto) Absolute Lymphs (auto) Nucleated RBC % Sodium Potassium Chloride Carbon Dioxide Anion Gap BUN Creatinine Estim Creat Clear Calc Est GFR (MDRD) Af Amer Est GFR (MDRD) Non-Af BUN/Creatinine Ratio Glucose Lactic Acid Calcium Total Bilirubin AST ALT Alkaline Phosphatase Total Creatine Kinase 51 Troponin I Total Protein Albumin Globulin Albumin/Globulin Ratio Urine Color Yellow Urine Clarity Sl Cloudy Urine pH 5.0 Ur Specific [place] 1.025 Urine Protein 30 H Urine Glucose (UA) 100 H Urine Ketones 5 H Urine Occult Blood 10 H Urine Nitrite Negative Urine Bilirubin 3 H Urine Urobilinogen Normal Ur Leukocyte Esterase 25 H Urine RBC 0-5 SEEN Urine WBC 0-5 SEEN Ur Squamous Epith Cells 0-5 SEEN Amorphous Sediment 1+ Urine Bacteria RARE Hyaline Casts 0-5 SEEN Coarse Granular Casts 0-5 SEEN Urine Mucus 1+ Acetone Level NEGATIVE 03/04/19 03/04/19 03/04/19 01:52 01:52 01:52 WBC 12.7 H RBC 4.17 L Hgb 12.9 Hct 40.9 MCV 98.1 MCH 30.9 MCHC 31.5 L RDW Std Deviation 44.5 H RDW Coeff of Arben 12.2 Plt Count 242 MPV 12.3 H Immature Gran % (Auto) 0.300 Neut % (Auto) 66.2 Lymph % (Auto) 23.9 [place] % (Auto) 8.6 Eos % (Auto) 0.6 Baso % (Auto) 0.4 Absolute Neuts (auto) 8.4 H Absolute Lymphs (auto) 3.04 Nucleated RBC % 0 Sodium 137 Potassium 5.3 H Chloride 103 Carbon Dioxide 26.0 Anion Gap 8 BUN 73 H Creatinine 3.89 H Estim Creat Clear Calc 15.52 Est GFR (MDRD) Af Amer 15 L Est GFR (MDRD) Non-Af 13 L BUN/Creatinine Ratio 18.8 Glucose 120 H Lactic Acid 4.6 H* Calcium 8.6 Total Bilirubin 0.50 AST 7 L ALT 8 L Alkaline Phosphatase 97 Total Creatine Kinase Troponin I < 0.015 Total Protein 7.6 Albumin 3.7 Globulin 3.9 Albumin/Globulin Ratio 0.9 Urine Color Urine Clarity Urine pH Ur Specific [place] Urine Protein Urine Glucose (UA) Urine Ketones Urine Occult Blood Urine Nitrite Urine Bilirubin Urine Urobilinogen Ur Leukocyte Esterase Urine RBC Urine WBC Ur Squamous Epith Cells Amorphous Sediment Urine Bacteria Hyaline Casts Coarse Granular Casts Urine Mucus Acetone Level General: Alert, Cooperative, Confused Lungs: Clear to auscultation Cardiovascular: Regular rate, Regular Rhythm, No murmurs Capillary Refill: <3 seconds Peripheral Pulses: Normal Skin Color: Pale, - - Cold Extremities - Assessment/Plan Septic shock without clear etiology Patient has received normal saline 30 mm's per kilogram bolus Blood cultures was obtained at the emergency department; follow Patient received broad-spectrum antibiotics of vancomycin; Levaquin and tobramycin. Continue patient on vancomycin and ertapenem Trend lactic acid.
[2019-03-04] MEDS: fentaNYL 100 MCG/2 ML Ampul 50 MCG IV (05:38)
--- NOTE | 2019-03-04 05:50 | ED.RN ---
not able to use central line yet, until 2nd x-ray placement returns.
--- NOTE | 2019-03-04 05:51 | ED.RN ---
Dr. Sage at bedside with this RN and Obi Granda for arterial line placement.
[2019-03-04 05:56] LABS: Reflex Lactate? Y
[2019-03-04] MEDS: Carbidopa/Levodopa 25/250 Tablet PO (06:17)
--- NOTE | 2019-03-04 06:28 | PCM.PN.BLA ---
Progress Note A-line was attempted but it was not successful.
[2019-03-04 06:46] LABS: Bedside Glucose 49 mg/dL (70-110)
--- NOTE | 2019-03-04 06:48 | PCM.RX.CS ---
Consult Pharmacy has been consulted to manage selected antiobiotic: Vancomycin Type of Consult: New start Suspected Infection: Sepsis Prior Doses of Antibiotics Received/Current Regimen: VANCOMYCIN 2000MG IV X1 IN ED 03/04 @0616 Labs: Sodium 137 mmol/L (136-145) 03/04/19 01:52 Potassium 5.3 mmol/L (3.5-5.1) H 03/04/19 01:52 Chloride 103 mmol/L (98-107) 03/04/19 01:52 Carbon Dioxide 26.0 mmol/L (21.0-32.0) 03/04/19 01:52 Anion Gap 8 (5-15) 03/04/19 01:52 BUN 73 mg/dL (7-18) H 03/04/19 01:52 Creatinine 3.89 mg/dL (0.55-1.02) H 03/04/19 01:52 Est GFR (MDRD) Af Amer 15 mL/min (>60) L 03/04/19 01:52 Est GFR (MDRD) Non-Af 13 mL/min (>60) L 03/04/19 01:52 BUN/Creatinine Ratio 18.8 RATIO (10-20) 03/04/19 01:52 Glucose 120 mg/dL (74-106) H 03/04/19 01:52 Weight used for dosin.9 kg Estimated Creatinine Clearance: 15 ML/MIN Goal Trough: 15-20 mcg/mL Pharmacy Plan for Drug Dosing: Pharmacy to dose per consultation. The patient received vancomycin 2000mg IV x1 in the ED 03/04/19 @0616. The patient's CrCl is ~15ml/min. Per protocol will dose on random levels until renal function stabilizes. Per H/P, the patient's SCr at baseline is around 0.85, admitting SCr 3.89. Will order a random vancomycin trough with the 2nd AM labs per protocol, which would be 03/06/19. Will dose based on levels at that time. PLAN/RECOMMENDATIONS 1. No additional vancomycin dosing at this time 2. Random vancomycin trough with AM labs 03/06/19 per protocol 3. Pharmacy Service will continue to monitor and adjust dosing as required.
[2019-03-04] MEDS: 0.9% Normal Saline 1,000 ML 100 ML IV (06:52)
[2019-03-04 06:53] LABS: Lactic Acid 2.7 mmol/L (0.4-2.0)
[2019-03-04 07:00] LABS: Bedside Glucose 78 mg/dL (70-110)
--- NOTE | 2019-03-04 07:26 | PCM.CON.CC ---
Reason for Consult Date of Consultation: 03/04/19 Reason for Consultation: Septic shock History of Present Illness: The patient is a 58-year-old female, with a history as outlined below, who presented to the emergency department on March 04 with complaints of generalized malaise, fatigue and lightheadedness. The patient has a history of Parkinson's disease, diabetes mellitus, depression, GERD, neuropathy, hypertension and appears to be on chronic opiate and benzodiazepines. She does report that for the past 2 to 3 days she has been experiencing diarrhea coupled with poor p.o. intake. She subsequently developed some confusion and became uneasy on her feet. She reportedly fell at home and struck her head. She denies any recent sick contact exposure. She denies the presence of shortness of breath or cough. On presentation to the emergency department, the patient was noted to be afebrile and hypotensive with a presenting blood pressure of 91/54 mmHg. She was maintaining appropriate oxygen saturations on room air. Laboratory evaluation revealed an elevated white blood cell count to 13,000. Chemistry profile was notable for a potassium of 5.3 with a corresponding creatinine of 3.89. Lactate was increased to 4.6. UA was unconvincing for infection. Serum acetone level was negative. CT head was obtained and revealed no acute intracranial pathology. Initial plain film chest x-ray revealed no acute cardiopulmonary process. Despite supplemental IV fluid hydration, the patient remained hypotensive. She was started on broad-spectrum antimicrobials. A central venous catheter was subsequently placed. The patient was then transferred to the medical intensive care unit for further management. 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 Parkinson disease G20 Hypertension I10 Lupus L93.0 Sleep apnea G47.30 H/O: hysterectomy Z98.890, Z90.710 Allergies indomethacin [From Indocin] Allergy (Verified 10/02/18 13:01) Rash indomethacin sodium [From Indocin] Allergy (Verified 10/02/18 13:01) Rash Penicillins Allergy (Verified 10/02/18 13:01) Rash clarithromycin [From Biaxin] Adverse Reaction (Verified 10/02/18 13:01) Diarrhea Home Medications: Ambulatory Orders Medication Instructions Recorded Propranolol HCl [Inderal LA (Beta 60 mg PO BID 03/17/13 Connor)] Rasagiline Mesylate [Azilect] 1 mg PO DAILY 03/17/13 metFORMIN (XR) [Glucophage Xr] 1,000 mg PO BID 03/17/13 Nuedexta / 1 tab PO DAILY 03/18/13 Carbidopa/Levodopa [Sinemet Cr 1 tab PO BID 01/15/15 25-100 Tablet] morphine SR tablet [Ms Contin] 15 mg PO BID 01/15/15 Carbidopa/Levodopa/Entacapone 1 ea PO BID 05/21/16 [Stalevo 150 Tablet] Oxycodone HCl/Acetaminophen 1 - 2 tab PO Q6H PRN PRN #40 tab 02/05/17 [Percocet 5/325] Ondansetron [Zofran Odt] 4 mg PO Q8H PRN PRN #10 tablet 11/15/17 Clonazepam 1 mg PO QHS 03/04/19 Dulaglutide [Trulicity] 0.75 mg SQ QWEEK 03/04/19 Escitalopram Oxalate [Lexapro] 10 mg PO DAILY 03/04/19 Esomeprazole Mag Trihydrate 40 mg PO DAILY 03/04/19 [Nexium] Gabapentin 600 mg PO TID 03/04/19 Glimepiride [Amaryl] 1 mg PO DAILY 03/04/19 Lisinopril 5 mg PO DAILY 03/04/19 Surgical History: Surgical History (Last Reviewed 03/04/19 @ 06:20 by Mason Stone MD) History of cholecystectomy Z90.49 History of knee surgery Z98.890 History of back surgery Z98.890 x3 S/P cholecystectomy Z90.49 S/P left knee surgery Z98.890 Status post arthroscopy of hip Z98.890 left 02/05/17 Status post carpal tunnel release Z98.890 right and left 10/18/11 Surgical History: cholecystectomy, hysterectomy Psychiatric History: No pertinent psych hx Lives: With Family Smoking Status: Never smoker Alcohol: None - *Family History Maternal Family History: Family History (Last Reviewed 03/04/19 @ 06:30 by Mason Stone MD) Brother Heart disease Mother Osteoarthritis History Items: No pertinent history Review of Systems Constitutional: Reports: Weakness, Fatigue Eyes: Denies: Blurred vision, Double vision HEENT: Denies: Head Aches, Sinus Congestion, Sinus Drainage Cardiovascular: Denies: Chest Pain, Palpitations Respiratory: Denies: Cough, Shortness of breath at rest, Sputum production Gastrointestinal: Reports: Abdominal Pain, Diarrhea. Denies: Nausea, Vomiting Genitourinary: Denies: Dysuria Musculoskeletal: Denies: Joint Pain, Joint Tenderness Skin: Denies: Rash, Wounds Neurological: Reports: Balance problems Psychiatric: Reports: Depression Hematologic/ Lymphatic: Denies: Easy Bruising, Easy Bleeding Patient Problems: Active and Suspected Problems (Last Reviewed 03/04/19 @ 06:29 by Mason Stone MD) Septic shock (Acute) Objective: The patient's most recent lab work, culture data and imaging studies have all been personally reviewed. Blood and urine cultures are currently pending. - Physical Exam General: Alert, Oriented x3, Cooperative, No apparent distress HEENT: Atraumatic, PERRLA, Normocephalic Oral: No Gingival or Mucosal Lesions/ Ulcerations Neck: Supple, No Nodes, Trachea Midline, - - Right IJ central venous catheter in place Lungs: Normal air movement, No rhonchi, No wheeze, No rales Cardiovascular: Regular rate, Regular Rhythm, Normal S1, Normal S2, No murmurs Abdomen: Bowel Sounds Present, Soft, Non Tender, Obese Extremities: No clubbing, No cyanosis, No edema Skin: No breakdown Musculoskeletal: No Muscle Wasting Lymphatic: No Cervical, Supraclavicular, or Inguinal Adenopathy Neurological: Cranial nerves II-XII grossly intact, Neuro grossly intact Psych/Mental Status: Flat Affect Vital Signs Temp Pulse Resp BP Pulse Ox 97.7 F L 90 17 92/65 95 03/04/19 06:48 03/04/19 07:00 03/04/19 07:00 03/04/19 07:00 03/04/19 07:00 Oxygen Delivery Method Room Air Weight: 198 lb 6.656 oz Body Mass Index (BMI) 31.1 Finger Stick Blood Glucose 49 Intake and Output for Last 24 Hours 03/02/19 03/03/19 03/04/19 23:59 23:59 23:59 Intake Total 3310.75 / 3310.75 Balance 3310.75 / 3310.75 Laboratory Tests Past 24 Hrs 03/04/19 03/04/19 03/04/19 01:52 01:52 01:52 WBC 12.7 H RBC 4.17 L Hgb 12.9 Hct 40.9 MCV 98.1 MCH 30.9 MCHC 31.5 L RDW Std Deviation 44.5 H RDW Coeff of Arben 12.2 Plt Count 242 MPV 12.3 H Immature Gran % (Auto) 0.300 Neut % (Auto) 66.2 Lymph % (Auto) 23.9 [place] % (Auto) 8.6 Eos % (Auto) 0.6 Baso % (Auto) 0.4 Absolute Neuts (auto) 8.4 H Absolute Lymphs (auto) 3.04 Nucleated RBC % 0 Sodium 137 Potassium 5.3 H Chloride 103 Carbon Dioxide 26.0 Anion Gap 8 BUN 73 H Creatinine 3.89 H Estim Creat Clear Calc 15.52 Est GFR (MDRD) Af Amer 15 L Est GFR (MDRD) Non-Af 13 L BUN/Creatinine Ratio 18.8 Glucose 120 H Lactic Acid 4.6 H* Calcium 8.6 Total Bilirubin 0.50 AST 7 L ALT 8 L Alkaline Phosphatase 97 Total Creatine Kinase Troponin I < 0.015 Total Protein 7.6 Albumin 3.7 Globulin 3.9 Albumin/Globulin Ratio 0.9 Urine Color Urine Clarity Urine pH Ur Specific [place] Urine Protein Urine Glucose (UA) Urine Ketones Urine Occult Blood Urine Nitrite Urine Bilirubin Urine Urobilinogen Ur Leukocyte Esterase Urine RBC Urine WBC Ur Squamous Epith Cells Amorphous Sediment Urine Bacteria Hyaline Casts Coarse Granular Casts Urine Mucus Acetone Level 03/04/19 03/04/19 03/04/19 01:52 01:52 02:10 WBC RBC Hgb Hct MCV MCH MCHC RDW Std Deviation RDW Coeff of Arben Plt Count MPV Immature Gran % (Auto) Neut % (Auto) Lymph % (Auto) [place] % (Auto) Eos % (Auto) Baso % (Auto) Absolute Neuts (auto) Absolute Lymphs (auto) Nucleated RBC % Sodium Potassium Chloride Carbon Dioxide Anion Gap BUN Creatinine Estim Creat Clear Calc Est GFR (MDRD) Af Amer Est GFR (MDRD) Non-Af BUN/Creatinine Ratio Glucose Lactic Acid Calcium Total Bilirubin AST ALT Alkaline Phosphatase Total Creatine Kinase 51 Troponin I Total Protein Albumin Globulin Albumin/Globulin Ratio Urine Color Yellow Urine Clarity Sl Cloudy Urine pH 5.0 Ur Specific [place] 1.025 Urine Protein 30 H Urine Glucose (UA) 100 H Urine Ketones 5 H Urine Occult Blood 10 H Urine Nitrite Negative Urine Bilirubin 3 H Urine Urobilinogen Normal Ur Leukocyte Esterase 25 H Urine RBC 0-5 SEEN Urine WBC 0-5 SEEN Ur Squamous Epith Cells 0-5 SEEN Amorphous Sediment 1+ Urine Bacteria RARE Hyaline Casts 0-5 SEEN Coarse Granular Casts 0-5 SEEN Urine Mucus 1+ Acetone Level NEGATIVE 03/04/19 06:00 WBC RBC Hgb Hct MCV MCH MCHC RDW Std Deviation RDW Coeff of Arben Plt Count MPV Immature Gran % (Auto) Neut % (Auto) Lymph % (Auto) [place] % (Auto) Eos % (Auto) Baso % (Auto) Absolute Neuts (auto) Absolute Lymphs (auto) Nucleated RBC % Sodium Potassium Chloride Carbon Dioxide Anion Gap BUN Creatinine Estim Creat Clear Calc Est GFR (MDRD) Af Amer Est GFR (MDRD) Non-Af BUN/Creatinine Ratio Glucose Lactic Acid 2.7 H Calcium Total Bilirubin AST ALT Alkaline Phosphatase Total Creatine Kinase Troponin I Total Protein Albumin Globulin Albumin/Globulin Ratio Urine Color Urine Clarity Urine pH Ur Specific [place] Urine Protein Urine Glucose (UA) Urine Ketones Urine Occult Blood Urine Nitrite Urine Bilirubin Urine Urobilinogen Ur Leukocyte Esterase Urine RBC Urine WBC Ur Squamous Epith Cells Amorphous Sediment Urine Bacteria Hyaline Casts Coarse Granular Casts Urine Mucus Acetone Level POC Glucose 03/04/19 03/04/19 06:55 04:21 POC Glucose 78 49 L Clinical Impression(s) from Imaging Studies Brain CT 03/04/19 01:51 IMPRESSION: No acute territorial infarct or intracranial hemorrhage identified. If patient's symptomology persists or there is continuing clinical concern MRI or follow-up CT scan performed. Electronically Signed: Mahesh Richter, at 3:04 EDT Tel , Service support , Chest X-Ray 03/04/19 01:51 IMPRESSION: Degenerative changes, as described above. No demonstrated acute cardiopulmonary process. Electronically Signed: Mahesh Trotterford, at 2:54 EDT Tel , Service support , Cervical Spine CT 03/04/19 01:52 IMPRESSION: Multilevel degenerative changes. No acute fractures or subluxation. Electronically Signed: Mahesh Neelam, at 3:08 EDT Tel , Service support , Chest X-Ray 03/04/19 04:11 IMPRESSION: No acute cardiopulmonary disease. Right sided central line tip overlying the base of the right atrium. Electronically Signed: Stephon Hayden MD at 4:55 EDT , Service support , Chest X-Ray 03/04/19 05:31 IMPRESSION: There is been some retraction of the internal jugular catheter on the right. The tip now projects over the upper right atrium just inferior to the cavoatrial junction. No pneumothorax identified. No acute cardiopulmonary disease. Electronically Signed: Mahesh Trotterford, at 5:55 EDT Tel , Service support , Assessment/Plan Active and Suspected Problems (Last Reviewed 03/04/19 @ 06:29 by Mason Stone MD) Septic shock (Acute) RECOMMENDATIONS: 1. Continue broad-spectrum antimicrobials, pending infectious work-up. 2. Continue supplemental IV fluid hydration. 3. Vasopressor support if needed. 4. Continue to hold morphine and benzodiazepines. 5. Avoid nephrotoxic agents. 6. Continue appropriate ICU prophylaxis IMPRESSIONS: 1. Septic shock While the patient was initially admitted to the hospital with a diagnosis of septic shock, I think the vast majority of her issues were related to hypovolemia. The patient reported a 3-day history of diarrhea with poor p.o. intake likely leading to significant intravascular volume depletion. The patient's diarrhea has since resolved, raising the suspicion for viral gastroenteritis. No other potential sources of infection have been readily identified. We will plan to continue supplemental IV fluids as needed. If the patient were to become hemodynamically unstable, vasopressor support will be started. The patient's antibiotics have been augmented to include cefepime and vancomycin, pending the results of her blood and urine cultures. MRSA screen is pending. If negative, vancomycin will be discontinued. 2. Encephalopathy The patient noted confusion along with dizziness and lightheadedness leading up to her hospitalization. I do suspect that this is likely multifactorial in etiology with underlying hypotension and metabolic derangements contributing. Unfortunately, in the setting of acute kidney injury, the patient continue to utilize her morphine. These opiate metabolites likely build up in her system and contributed to her symptoms. At this time, her mentation has improved. We will plan to continue to hold her morphine and benzodiazepines. 3. Acute kidney injury I do suspect that this is likely prerenal in etiology. Her creatinine has improved in the setting of volume resuscitation. I do suspect further improvement with stabilization of hemodynamics. There is no current indication for renal replacement therapy at this time. 4. History of Parkinson's/chronic opiate and benzodiazepine dependency/diabetes mellitus/GERD/neuropathy/hypertension Complicates care, management, recovery and prognosis. Continue to hold morphine and benzodiazepines. Continue sliding scale coverage. Continue to hold lisinopril. Physical therapy evaluation is pending. This note was generated with [facility] dictation software. It may contain incorrect words, spelling, and punctuation that were not noted in checking the note before signing. Code Visit Inpatient E&M: 92268 Init Hosp L3
[2019-03-04 08:31] LABS: Bedside Glucose 66 mg/dL (70-110)
[2019-03-04] MEDS: 0.9% NaCl Peripheral Flush Adult/Peds IV (08:37)
[2019-03-04] MEDS: Gabapentin 100 MG Capsule PO ×3 (08:38→22:00)
--- NOTE | 2019-03-04 08:40 | PN_ITS ---
Patient Problems: Active and Suspected Problems (Last Reviewed 03/04/19 @ 06:29 by Mason Stone MD) Septic shock (Acute) Subjective: still feels sick. Had been feeling sick for 2-3 days prior to arrival. Was having diarrhea, but none since arrival. Vitals/I&O's: Vital Signs Temp Pulse Resp BP Pulse Ox 36.5 C L 90 17 92/65 93 03/04/19 06:48 03/04/19 07:00 03/04/19 07:00 03/04/19 07:00 03/04/19 07:28 Oxygen Delivery Method Room Air Weight: 90 kg Body Mass Index (BMI) 31.1 Finger Stick Blood Glucose 49 Intake and Output for Last 24 Hours 03/02/19 03/03/19 03/04/19 23:59 23:59 23:59 Intake Total 3310.75 / 3310.75 Balance 3310.75 / 3310.75 General: Alert, No apparent distress HEENT: Atraumatic, Normocephalic Oral: Moist Mucosa, No Gingival or Mucosal Lesions/ Ulcerations Neck: No Nodes, Thyroid Normal Size and Texture, - - RIJ TLC in place Lungs: Clear to auscultation, Normal air movement, No rhonchi, No wheeze Cardiovascular: Regular rate, Regular Rhythm, Normal S1, Normal S2, No murmurs Abdomen: Bowel Sounds Present, Soft, Non Tender, Non-Distended, No Hepato- splenomegaly Extremities: No edema, No Calf Tenderness Skin: No rashes, No breakdown Neurological: Sensory exam intact to light touch and pain Psych/Mental Status: Appropriate, Flat Affect Laboratory Results 03/04/19 01:52: WBC 12.7 H, RBC 4.17 L, Hgb 12.9, Hct 40.9, MCV 98.1, MCH 30.9, MCHC 31.5 L, RDW Std Deviation 44.5 H, RDW Coeff of Arben 12.2, Plt Count 242, MPV 12.3 H, Immature Gran % (Auto) 0.300, Neut % (Auto) 66.2, Lymph % (Auto) 23.9, [place] % (Auto) 8.6, Eos % (Auto) 0.6, Baso % (Auto) 0.4, Absolute Neuts (auto) 8.4 H, Absolute Lymphs (auto) 3.04, Nucleated RBC % 0 03/04/19 01:52: Sodium 137, Potassium 5.3 H, Chloride 103, Carbon Dioxide 26.0, Anion Gap 8, BUN 73 H, Creatinine 3.89 H, Estim Creat Clear Calc 15.52, Est GFR (MDRD) Af Amer 15 L, Est GFR (MDRD) Non-Af 13 L, BUN/Creatinine Ratio 18.8, Glucose 120 H, Calcium 8.6, Total Bilirubin 0.50, AST 7 L, ALT 8 L, Alkaline Phosphatase 97, Troponin I < 0.015, Total Protein 7.6, Albumin 3.7, Globulin 3.9, Albumin/Globulin Ratio 0.9 03/04/19 01:52: Lactic Acid 4.6 H* 03/04/19 01:52: Acetone Level NEGATIVE 03/04/19 01:52: Total Creatine Kinase 51 03/04/19 02:10: Urine Color Yellow, Urine Clarity Sl Cloudy, Urine pH 5.0, Ur Specific [place] 1.025, Urine Protein 30 H, Urine Glucose (UA) 100 H, Urine Ketones 5 H, Urine Occult Blood 10 H, Urine Nitrite Negative, Urine Bilirubin 3 H, Urine Urobilinogen Normal, Ur Leukocyte Esterase 25 H, Urine RBC 0-5 SEEN, Urine WBC 0-5 SEEN, Ur Squamous Epith Cells 0-5 SEEN, Amorphous Sediment 1+, Urine Bacteria RARE, Hyaline Casts 0-5 SEEN, Coarse Granular Casts 0-5 SEEN, Urine Mucus 1+ 03/04/19 04:21: POC Glucose 49 L 03/04/19 06:00: Lactic Acid 2.7 H 03/04/19 06:55: POC Glucose 78 03/04/19 08:24: POC Glucose 66 L Current Medications Acetaminophen (Tylenol) 650 mg PO Q6H PRN PRN PRN Reason: Mild Pain (1-3)/Temp > 100.7 F Dextrose (D50w Syringe) 0 gm IV X1 PRN; Protocol PRN Reason: Hypoglycemia Enoxaparin Sodium (Lovenox) 30 mg SC DAILY@1000 ROXY Escitalopram Oxalate (Lexapro) 10 mg PO DAILY ROXY Gabapentin (Neurontin) 100 mg PO TID ROXY Last Admin: 03/04/19 08:38 Dose: 100 mg Documented by: Glucagon () 1 mg IM .X1 PRN PRN Reason: Hypoglycemia Vancomycin IV Pharmacy to Dose (1,000 ea/ Sodium Chloride) 500 mls @ 250 mls/hr IV PRN PRN; Protocol Sodium Chloride () 250 mls @ 15 mls/hr IV .[id number] PRN PRN Reason: SALINE FLUSH Cefepime HCl 2 gm/ Sodium (Chloride) 100 mls @ 200 mls/hr IV Q8 ROXY Insulin Human Lispro (Humalog Kwikpen (Bkc)) 0 unit SC ACHS ROXY; Protocol Last Admin: 03/04/19 08:17 Dose: Not Given Documented by: Non-Formulary Medication (Nuedexta /) 1 tab PO DAILY ROXY Ondansetron HCl (Zofran) 4 mg IV Q8H PRN PRN PRN Reason: NAUSEA/VOMITING Oxycodone HCl (Oxyir) 5 - 10 mg PO Q6H PRN PRN Reason: MOD-SEVERE PAIN (4-10/10) Pantoprazole Sodium (Protonix) 40 mg PO DAILY ROXY Rasagiline (Azilect) 1 mg PO DAILY ROXY Sodium Chloride () 10 - 40 ml IV UD PRN PRN Reason: SALINE FLUSH Last Admin: 03/04/19 08:37 Dose: 10 ml Documented by: Medical Necessity - Tobacco Use Smoking Status: Never smoker Assessment/Plan All Active Problems (Last Reviewed 03/04/19 @ 06:29 by Mason Stone MD) Septic shock (Acute) 1. Septic shock * unidentified source * may be viral * follow up cultures * continue broad spectrum abx (cefepime and vancomycin) * if become hypotensive again, then may require pressors * did receive IVF 30cc/kg IBW and aztreonam, vanc and tobramycin in ED * follow up blood cultures, stool studies * UA and CXR negative 2. DEBORA * suspect prerenal * baseline creatinine 0.86 frin 01/27/19 * continue IVF 3. Diarrhea * resolved * stool studies pending, but pt has not had diarrhea since arrival * if no further diarrhea, then doubtful this would be C. diff. 4. VTE prophylaxis: moderate risk. LMWH. Code Visit Procedures: Other Procedure - See Report - non-billable rounding.
[2019-03-04] MEDS: Dext 5%-0.45% NS 1,000 ML 125 ML IV ×2 (09:11→17:23)
[2019-03-04] MEDS: Pantoprazole Sodium 40 MG Tablet PO (09:12)
[2019-03-04] MEDS: Escitalopram Oxalate 10 MG Tablet PO (09:12)
[2019-03-04] MEDS: Enoxaparin 30 MG/0.3 ML Syringe SC (09:12)
[2019-03-04 09:15] LABS: Anion Gap 5 (5-15); BUN 58 mg/dL (7-18); BUN/Creat Ratio 23.6 RATIO (10-20); Calcium,Total 7.9 mg/dL (8.5-10.1); Chloride 109 mmol/L (98-107); Creatinine, Serum 2.46 mg/dL (0.55-1.02); EST Glomerular Filtration Rate 21 mL/min (>60); Est Glom Filt Rate - Afr Amer 26 mL/min (>60); Estimated Creatinine Clearance 24.54 ml/min; Glucose 52 mg/dL (74-106); Potassium 4.9 mmol/L (3.5-5.1); Sodium Level 142 mmol/L (136-145)
[2019-03-04] MEDS: Carbidopa/Levodopa 25/100 Tablet PO ×2 (11:15→17:19)
--- NOTE | 2019-03-04 11:27 | CASEMGMT ---
RN CM Assessment Presentation: Septic Shock, DEBORA -participated in ICU interdisciplinary rounds today. Plan is for continued monitoring today, continue IVF and antibiotics. If becomes hypotensive again, may require pressors. -Intro role of CM and purpose of RN CM assessment to patient and her daughter Julio in room. Pt Demographics, PCP and Pharmacy verified. Pt states she is generally independent @ home. Not using DME. Family is supportive and able to assist with needs at home. PCP: Dr. Randhawa Specialists: Dr. Kaufman Neurology; Dr. Marley, pain mgmt [place] Preferred Pharmacy: [facility]; entered in chart Insurance: [facility] Prescription Benefit: yes LNOK: Daughter Julio; [place]-lives with pt. Living Arrangements: Lives in two story home, able to independently do own care. States more difficulty with doing stairs. Transportation: Meet [place] drives DME: cane. Discussed PT/OT will complete evaluations and if DME is needed, CM can assist with ordering. List of DME's given to pt. Preferred DME is [facility]. HHC: none, do anticipate Patient DC goals: Home DC PLAN: anticipate Home. Pt may need Home oxygen testing. PT/OT evaluations pending. Mary HERNANDEZ RN ACM
[2019-03-04 11:36] LABS: Bedside Glucose 53 mg/dL (70-110)
[2019-03-04 11:56] LABS: M R Staph aureus DNA By PCR Negative (Negative); Probe Check PASS; Specimen Processing Control PASS
[2019-03-04 13:51] LABS: Bedside Glucose 66 mg/dL (70-110)
[2019-03-04] MEDS: Glucerna Shake 120 ML LIQUID PO ×2 (13:52→18:28)
[2019-03-04] MEDS: oxyCODONE 5 MG Tablet PO ×2 (16:27→22:30)
[2019-03-04 17:10] LABS: Bedside Glucose 85 mg/dL (70-110)
[2019-03-04] MEDS: Acetaminophen 325 MG Tablet 650 MG PO (17:23)
[2019-03-04 22:06] LABS: Bedside Glucose 146 mg/dL (70-110)
[2019-03-05] VITALS (15 sets, daily range): BP systolic 90–141; BP diastolic 59–79; PULSE 87–110; RESP 12–21; TEMP 36.6–37.1; O2SAT 92–100
[2019-03-05] MEDS: Acetaminophen 325 MG Tablet 650 MG PO ×2 (00:08→11:09)
[2019-03-05] MEDS: Dext 5%-0.45% NS 1,000 ML 125 ML IV (01:06)
[2019-03-05] MEDS: oxyCODONE 5 MG Tablet PO ×3 (05:16→23:28)
[2019-03-05] MEDS: Gabapentin 100 MG Capsule PO ×3 (05:17→23:06)
[2019-03-05 05:34] LABS: Absolute Lymphocyte Count 2.59 X10^3/uL (0.83-4.51); Absolute Neutrophil Count 2.9 X10^3/uL (2.0-7.7); Basophil# 0.02 X10^3/uL; Basophil% 0.3 % (0-1); Eosinophil# 0.23 X10^3/uL; Eosinophils% 3.7 % (0-5); Hematocrit 34.9 % (37-47); Hemoglobin 11.1 g/dL (12.0-15.0); Lymphocyte # 2.59 X10^3/ul (4.0); Lymphocyte % 41.7 % (19-41); Mean Corp Hgb Conc 31.8 g/dL (32-36); Mean Corpuscular Hgb 31.1 pg (27.0-32.0); Mean Corpuscular Volume 97.8 fL (81-99); Monocyte# 0.48 X10^3/uL; Monocyte% 7.7 % (0-10); NRBC Flagged by Analyzer 0 % (0-5); Neutrophil # 2.88 X10^3/uL (2.7-7.7); Neutrophil % 46.4 % (47-70); Platelet Count 162 K/mm3 (150-450); RBC Distribution Width SD 43.8 fl (35.1-43.9); Red Blood Count 3.57 M/mm3 (4.2-5.4); White Blood Count 6.2 K/mm3 (4.4-11.0)
[2019-03-05 05:52] LABS: Anion Gap 4 (5-15); BUN 25 mg/dL (7-18); BUN/Creat Ratio 20.7 RATIO (10-20); Calcium,Total 8.3 mg/dL (8.5-10.1); Chloride 107 mmol/L (98-107); Creatinine, Serum 1.21 mg/dL (0.55-1.02); EST Glomerular Filtration Rate 49 mL/min (>60); Est Glom Filt Rate - Afr Amer 59 mL/min (>60); Estimated Creatinine Clearance 49.88 ml/min; Glucose 138 mg/dL (74-106); Sodium Level 142 mmol/L (136-145)
--- NOTE | 2019-03-05 05:55 | ECHOD_ITS ---
Reason For Study: HYPOTENSION Procedure This was a 2D Doppler, Color Flow transthoracic echocardiogram. Exam performed portable in ICU/CCU. Left Ventricle Normal LV size. The estimated ejection fraction is 55 %. Stage 1 diastolic dysfunction. No regional wall motion abnormalities noted. Right Ventricle Normal RV size. Normal systolic function. Atria Normal left atrium. Normal right atrium. Mitral Valve Normal mitral valve. Tricuspid Valve Normal tricuspid valve. Aortic Valve Normal aortic valve. Pulmonic Valve Normal pulmonic valve. Great Vessels Normal aortic root. The pulmonary artery is normal size. Normal inferior vena cava. Pericardium/Pleural No pericardial effusion. MMode/2D Measurements & Calculations LVIDd: 5.1 cm IVSd: 0.80 cm Ao root diam: 3.3 cm LVIDs: 3.6 cm LVPWd: 0.92 cm RVDd: 3.5 cm FS: 29.3 % LAV(MOD-bp): 41.1 ml LA A4 area: 16.1 cm2 LA dimension(2D): 3.2 cm LAV(MOD-bp) Indexed: 20.4 ml/m2 LAV(MOD-sp2): 39.2 ml LAV(MOD-sp4): 41.3 ml RA A4 area: 11.2 cm2 Doppler Measurements & Calculations MV E max naveen: 71.7 cm/sec Lat Peak E' Naveen: 14.2 cm/sec Med Peak E' Naveen: 6.9 cm/sec MV A max naveen: 85.5 cm/sec E/E' lat: 5.0 E/E' med: 10.4 MV E/A: 0.84 Ao V2 max: 128.1 cm/sec LV V1 max: 116.9 cm/sec TR max naveen: 284.6 cm/sec Ao max P.6 mmHg LV V1 max P.5 mmHg TR max P.4 mmHg Interpretation Summary Normal LV size. The estimated ejection fraction is 55 %. Stage 1 diastolic dysfunction. Structurally normal valves. Ordering Physician: Mason Stone Referring Physician: ANNALISE GUEVARA Performed By: Mell Harrison, JAMIE, RVT
[2019-03-05] MEDS: Carbidopa/Levodopa 25/100 Tablet PO ×3 (06:41→16:02)
--- NOTE | 2019-03-05 07:03 | PCM.PN.INT ---
Subjective: Patient did well overnight. Patient subjectively improved compared to previous. Patient did not require pressor therapy overnight. Patient has remained on room air. No nausea, vomiting or abdominal pain has been reported. Patient did have a bowel movement this morning. No additional fluid boluses of been required. General: Alert, Oriented x3, Cooperative, No apparent distress, Well developed, Well nourished, - - Obese. No conversational dyspnea. HEENT: Atraumatic, PERRLA, EOMI, Normocephalic, - - No scleral icterus or injection noted. Oral: Moist Mucosa, No Gingival or Mucosal Lesions/ Ulcerations Neck: Supple, No JVD, No Nodes, Trachea Midline Lungs: No rhonchi, No wheeze, No rales, Diminished Cardiovascular: Normal S1, Normal S2, No murmurs, No rub noted, No Gallop, Tachycardic Abdomen: Bowel Sounds Present, Soft, Non Tender, Non-Distended, Obese Extremities: No clubbing, No cyanosis, No edema Skin: Rash Present - Sun exposed areas with a macular rash. No petechiae appreciated. Musculoskeletal: No Tenderness to Palpation of Joints or Extremities Lymphatic: No Cervical, Supraclavicular, or Inguinal Adenopathy Neurological: Cranial nerves II-XII grossly intact, Neuro grossly intact, Motor Exam 5/5 strength throughout Psych/Mental Status: Alert and oriented to time, place, person, mood and affect Vital Signs Temp Pulse Resp BP Pulse Ox 36.7 C 97 17 118/75 94 03/05/19 04:00 03/05/19 06:00 03/05/19 06:00 03/05/19 06:00 03/05/19 06:00 Oxygen Flow Rate (L/min) 2 Oxygen Delivery Method Room Air Weight: 90.3 kg Body Mass Index (BMI) 31.1 Finger Stick Blood Glucose 49 Intake and Output for Last 24 Hours 03/03/19 03/04/19 03/05/19 23:59 23:59 23:59 Intake Total 6914.08 / 7394.08 1660.00 / 1660.00 Output Total 2050 / 4150 3550 / 3550 Balance 4864.08 / 3244.08 -1890.00 / -1890.00 Labs (Last 48 Hours) 03/04/19 03/04/19 03/04/19 01:52 01:52 01:52 WBC 12.7 H RBC 4.17 L Hgb 12.9 Hct 40.9 MCV 98.1 MCH 30.9 MCHC 31.5 L RDW Std Deviation 44.5 H RDW Coeff of Arben 12.2 Plt Count 242 MPV 12.3 H Immature Gran % (Auto) 0.300 Neut % (Auto) 66.2 Lymph % (Auto) 23.9 [place] % (Auto) 8.6 Eos % (Auto) 0.6 Baso % (Auto) 0.4 Absolute Neuts (auto) 8.4 H Absolute Lymphs (auto) 3.04 Nucleated RBC % 0 Sodium 137 Potassium 5.3 H Chloride 103 Carbon Dioxide 26.0 Anion Gap 8 BUN 73 H Creatinine 3.89 H Estim Creat Clear Calc 15.52 Est GFR (MDRD) Af Amer 15 L Est GFR (MDRD) Non-Af 13 L BUN/Creatinine Ratio 18.8 Glucose 120 H Lactic Acid 4.6 H* Calcium 8.6 Total Bilirubin 0.50 AST 7 L ALT 8 L Alkaline Phosphatase 97 Total Creatine Kinase Troponin I < 0.015 Total Protein 7.6 Albumin 3.7 Globulin 3.9 Albumin/Globulin Ratio 0.9 Urine Color Urine Clarity Urine pH Ur Specific [place] Urine Protein Urine Glucose (UA) Urine Ketones Urine Occult Blood Urine Nitrite Urine Bilirubin Urine Urobilinogen Ur Leukocyte Esterase Urine RBC Urine WBC Ur Squamous Epith Cells Amorphous Sediment Urine Bacteria Hyaline Casts Coarse Granular Casts Urine Mucus Acetone Level MRSA (PCR) POC Glucose 03/04/19 03/04/19 03/04/19 01:52 01:52 02:10 WBC RBC Hgb Hct MCV MCH MCHC RDW Std Deviation RDW Coeff of Arben Plt Count MPV Immature Gran % (Auto) Neut % (Auto) Lymph % (Auto) [place] % (Auto) Eos % (Auto) Baso % (Auto) Absolute Neuts (auto) Absolute Lymphs (auto) Nucleated RBC % Sodium Potassium Chloride Carbon Dioxide Anion Gap BUN Creatinine Estim Creat Clear Calc Est GFR (MDRD) Af Amer Est GFR (MDRD) Non-Af BUN/Creatinine Ratio Glucose Lactic Acid Calcium Total Bilirubin AST ALT Alkaline Phosphatase Total Creatine Kinase 51 Troponin I Total Protein Albumin Globulin Albumin/Globulin Ratio Urine Color Yellow Urine Clarity Sl Cloudy Urine pH 5.0 Ur Specific [place] 1.025 Urine Protein 30 H Urine Glucose (UA) 100 H Urine Ketones 5 H Urine Occult Blood 10 H Urine Nitrite Negative Urine Bilirubin 3 H Urine Urobilinogen Normal Ur Leukocyte Esterase 25 H Urine RBC 0-5 SEEN Urine WBC 0-5 SEEN Ur Squamous Epith Cells 0-5 SEEN Amorphous Sediment 1+ Urine Bacteria RARE Hyaline Casts 0-5 SEEN Coarse Granular Casts 0-5 SEEN Urine Mucus 1+ Acetone Level NEGATIVE MRSA (PCR) POC Glucose 03/04/19 03/04/19 03/04/19 04:21 06:00 06:55 WBC RBC Hgb Hct MCV MCH MCHC RDW Std Deviation RDW Coeff of Arben Plt Count MPV Immature Gran % (Auto) Neut % (Auto) Lymph % (Auto) [place] % (Auto) Eos % (Auto) Baso % (Auto) Absolute Neuts (auto) Absolute Lymphs (auto) Nucleated RBC % Sodium Potassium Chloride Carbon Dioxide Anion Gap BUN Creatinine Estim Creat Clear Calc Est GFR (MDRD) Af Amer Est GFR (MDRD) Non-Af BUN/Creatinine Ratio Glucose Lactic Acid 2.7 H Calcium Total Bilirubin AST ALT Alkaline Phosphatase Total Creatine Kinase Troponin I Total Protein Albumin Globulin Albumin/Globulin Ratio Urine Color Urine Clarity Urine pH Ur Specific [place] Urine Protein Urine Glucose (UA) Urine Ketones Urine Occult Blood Urine Nitrite Urine Bilirubin Urine Urobilinogen Ur Leukocyte Esterase Urine RBC Urine WBC Ur Squamous Epith Cells Amorphous Sediment Urine Bacteria Hyaline Casts Coarse Granular Casts Urine Mucus Acetone Level MRSA (PCR) POC Glucose 49 L 78 03/04/19 03/04/19 03/04/19 08:24 08:30 08:30 WBC RBC Hgb Hct MCV MCH MCHC RDW Std Deviation RDW Coeff of Arben Plt Count MPV Immature Gran % (Auto) Neut % (Auto) Lymph % (Auto) [place] % (Auto) Eos % (Auto) Baso % (Auto) Absolute Neuts (auto) Absolute Lymphs (auto) Nucleated RBC % Sodium 142 Potassium 4.9 Chloride 109 H Carbon Dioxide 28.0 Anion Gap 5 BUN 58 H Creatinine 2.46 H Estim Creat Clear Calc 24.54 Est GFR (MDRD) Af Amer 26 L Est GFR (MDRD) Non-Af 21 L BUN/Creatinine Ratio 23.6 H Glucose 52 L Lactic Acid Calcium 7.9 L Total Bilirubin AST ALT Alkaline Phosphatase Total Creatine Kinase Troponin I Total Protein Albumin Globulin Albumin/Globulin Ratio Urine Color Urine Clarity Urine pH Ur Specific [place] Urine Protein Urine Glucose (UA) Urine Ketones Urine Occult Blood Urine Nitrite Urine Bilirubin Urine Urobilinogen Ur Leukocyte Esterase Urine RBC Urine WBC Ur Squamous Epith Cells Amorphous Sediment Urine Bacteria Hyaline Casts Coarse Granular Casts Urine Mucus Acetone Level MRSA (PCR) Negative POC Glucose 66 L 03/04/19 03/04/19 03/04/19 11:31 13:46 17:01 WBC RBC Hgb Hct MCV MCH MCHC RDW Std Deviation RDW Coeff of Arben Plt Count MPV Immature Gran % (Auto) Neut % (Auto) Lymph % (Auto) [place] % (Auto) Eos % (Auto) Baso % (Auto) Absolute Neuts (auto) Absolute Lymphs (auto) Nucleated RBC % Sodium Potassium Chloride Carbon Dioxide Anion Gap BUN Creatinine Estim Creat Clear Calc Est GFR (MDRD) Af Amer Est GFR (MDRD) Non-Af BUN/Creatinine Ratio Glucose Lactic Acid Calcium Total Bilirubin AST ALT Alkaline Phosphatase Total Creatine Kinase Troponin I Total Protein Albumin Globulin Albumin/Globulin Ratio Urine Color Urine Clarity Urine pH Ur Specific [place] Urine Protein Urine Glucose (UA) Urine Ketones Urine Occult Blood Urine Nitrite Urine Bilirubin Urine Urobilinogen Ur Leukocyte Esterase Urine RBC Urine WBC Ur Squamous Epith Cells Amorphous Sediment Urine Bacteria Hyaline Casts Coarse Granular Casts Urine Mucus Acetone Level MRSA (PCR) POC Glucose 53 L 66 L 85 03/04/19 03/05/19 03/05/19 21:58 05:20 05:20 WBC 6.2 RBC 3.57 L Hgb 11.1 L Hct 34.9 L MCV 97.8 MCH 31.1 MCHC 31.8 L RDW Std Deviation 43.8 RDW Coeff of Arben 12.0 Plt Count 162 MPV 12.0 Immature Gran % (Auto) 0.200 Neut % (Auto) 46.4 L Lymph % (Auto) 41.7 H [place] % (Auto) 7.7 Eos % (Auto) 3.7 Baso % (Auto) 0.3 Absolute Neuts (auto) 2.9 Absolute Lymphs (auto) 2.59 Nucleated RBC % 0 Sodium 142 Potassium 5.0 Chloride 107 Carbon Dioxide 31.0 Anion Gap 4 L BUN 25 H Creatinine 1.21 H Estim Creat Clear Calc 49.88 Est GFR (MDRD) Af Amer 59 L Est GFR (MDRD) Non-Af 49 L BUN/Creatinine Ratio 20.7 H Glucose 138 H Lactic Acid Calcium 8.3 L Total Bilirubin AST ALT Alkaline Phosphatase Total Creatine Kinase Troponin I Total Protein Albumin Globulin Albumin/Globulin Ratio Urine Color Urine Clarity Urine pH Ur Specific [place] Urine Protein Urine Glucose (UA) Urine Ketones Urine Occult Blood Urine Nitrite Urine Bilirubin Urine Urobilinogen Ur Leukocyte Esterase Urine RBC Urine WBC Ur Squamous Epith Cells Amorphous Sediment Urine Bacteria Hyaline Casts Coarse Granular Casts Urine Mucus Acetone Level MRSA (PCR) POC Glucose 146 H Medical Necessity - Tobacco Use Smoking Status: Never smoker Assessment/Plan All Active Problems (Last Reviewed 03/04/19 @ 06:29 by Mason Stone MD) Septic shock (Acute) RECOMMENDATIONS: 1. Continue broad-spectrum antimicrobials, pending infectious work-up. 2. Possibly discontinue IV hydration later today 3. Okay to discontinue Levophed 4. Continue to hold morphine and benzodiazepines. 5. Avoid nephrotoxic agents. 6. Okay to transfer from the intensive care unit from my perspective IMPRESSIONS: 1. Septic shock Patient much improved from presentation. Patient did have a 3-day history of diarrhea, but appears to be fluid resuscitated at this time. Patient does remain on cefepime, but vancomycin is not indicated as MRSA screen was negative. Patient has had significant improvement in blood pressures. Likely okay to leave the intensive care unit. Would continue broad-spectrum antibiotics until further information is available, but patient appears to be responding to current therapy. Likely okay to transition off of IV fluids if patient is able to tolerate breakfast. 2. Encephalopathy Resolved. Unclear if this is secondary to retention of baseline medications. Patient's renal function is much improved compared to previous. Likely okay to reinitiate baseline medications in a stepwise fashion. 3. Acute kidney injury Improving. Likely secondary to prerenal etiology and patient is responded well to stabilization of hemodynamics and fluid resuscitation. We will continue to monitor. 4. History of Parkinson's/chronic opiate and benzodiazepine dependency/diabetes mellitus/GERD/neuropathy/hypertension/reported lupus Complicates care, management, recovery and prognosis. Continue to hold morphine and benzodiazepines. Continue sliding scale coverage. Continue to hold lisinopril. Lacy rash with sun exposure consistent with reported lupus. Code Visit Inpatient E&M: 29038 [facility] Hosp L3
[2019-03-05] MEDS: Insulin Lispro 100 UNIT/ML INSULN.PEN SC ×2 (07:55→23:17)
[2019-03-05 08:05] LABS: Bedside Glucose 185 mg/dL (70-110)
--- NOTE | 2019-03-05 09:05 | PN_ITS ---
Patient Problems: Active and Suspected Problems (Last Reviewed 03/04/19 @ 06:29 by Mason Stone MD) Septic shock (Acute) Subjective: Feels good. No respiratory distress and on room air. Some small amount of diarrhea. Vitals/I&O's: Vital Signs Temp Pulse Resp BP Pulse Ox 36.6 C 106 H 12 117/70 95 03/05/19 07:55 03/05/19 07:55 03/05/19 07:55 03/05/19 07:55 03/05/19 07:55 Oxygen Flow Rate (L/min) 2 Oxygen Delivery Method Room Air Weight: 90.3 kg Body Mass Index (BMI) 31.1 Finger Stick Blood Glucose 49 Intake and Output for Last 24 Hours 03/03/19 03/04/19 03/05/19 23:59 23:59 23:59 Intake Total 6914.08 / 7394.08 1968.33 / 1968.33 Output Total 2050 / 4150 3550 / 3550 Balance 4864.08 / 3244.08 -1581.67 / -1581.67 General: Alert, No apparent distress HEENT: Atraumatic, Normocephalic Oral: Moist Mucosa, No Gingival or Mucosal Lesions/ Ulcerations Neck: No Nodes, Thyroid Normal Size and Texture Lungs: Clear to auscultation, Normal air movement, No rhonchi, No wheeze, No rales Cardiovascular: Regular rate, Regular Rhythm, Normal S1, Normal S2, No murmurs Abdomen: Bowel Sounds Present, Soft, Non Tender, Non-Distended, No Hepato- splenomegaly Extremities: No edema, No Calf Tenderness Skin: No rashes, No breakdown Musculoskeletal: No Tenderness to Palpation of Joints or Extremities, No Muscle Wasting Psych/Mental Status: Normal Affect, Appropriate Laboratory Results 03/04/19 08:30: Sodium 142, Potassium 4.9, Chloride 109 H, Carbon Dioxide 28.0, Anion Gap 5, BUN 58 H, Creatinine 2.46 H, Estim Creat Clear Calc 24.54, Est GFR (MDRD) Af Amer 26 L, Est GFR (MDRD) Non-Af 21 L, BUN/Creatinine Ratio 23.6 H, Glucose 52 L, Calcium 7.9 L 03/04/19 08:30: MRSA (PCR) Negative 03/04/19 11:31: POC Glucose 53 L 03/04/19 13:46: POC Glucose 66 L 03/04/19 17:01: POC Glucose 85 03/04/19 21:58: POC Glucose 146 H 03/05/19 05:20: Sodium 142, Potassium 5.0, Chloride 107, Carbon Dioxide 31.0, Anion Gap 4 L, BUN 25 H, Creatinine 1.21 H, Estim Creat Clear Calc 49.88, Est GFR (MDRD) Af Amer 59 L, Est GFR (MDRD) Non-Af 49 L, BUN/Creatinine Ratio 20.7 H , Glucose 138 H, Calcium 8.3 L 03/05/19 05:20: WBC 6.2, RBC 3.57 L, Hgb 11.1 L, Hct 34.9 L, MCV 97.8, MCH 31.1, MCHC 31.8 L, RDW Std Deviation 43.8, RDW Coeff of Arben 12.0, Plt Count 162, MPV 12.0, Immature Gran % (Auto) 0.200, Neut % (Auto) 46.4 L, Lymph % (Auto) 41.7 H, [place] % (Auto) 7.7, Eos % (Auto) 3.7, Baso % (Auto) 0.3, Absolute Neuts (auto) 2.9, Absolute Lymphs (auto) 2.59, Nucleated RBC % 0 03/05/19 07:50: POC Glucose 185 H Current Medications Acetaminophen (Tylenol) 650 mg PO Q6H PRN PRN PRN Reason: Mild Pain (1-3)/Temp > 100.7 F Last Admin: 03/05/19 00:08 Dose: 650 mg Documented by: Carbidopa/Levodopa (Sinemet) 1 tablet PO TIDAC [facility] [place] Last Admin: 03/05/19 06:41 Dose: 1 tablet Documented by: Carbidopa/Levodopa/Entacapone (Stalevo 150) 1 tablet PO BID [facility] [place] Last Admin: 03/04/19 22:00 Dose: 1 tablet Documented by: Dextrose (D50w Syringe) 0 gm IV X1 PRN; Protocol PRN Reason: Hypoglycemia Enoxaparin Sodium (Lovenox) 30 mg SC DAILY@1000 [facility] [place] Last Admin: 03/04/19 09:12 Dose: 30 mg Documented by: Escitalopram Oxalate (Lexapro) 10 mg PO DAILY [facility] [place] Last Admin: 03/04/19 09:12 Dose: 10 mg Documented by: Gabapentin (Neurontin) 100 mg PO TID [facility] [place] Last Admin: 03/05/19 05:17 Dose: 100 mg Documented by: Glucagon () 1 mg IM .X1 PRN PRN Reason: Hypoglycemia Sodium Chloride () 250 mls @ 15 mls/hr IV .[id number] PRN PRN Reason: SALINE FLUSH Cefepime HCl 2 gm/ Sodium (Chloride) 100 mls @ 200 mls/hr IV Q24 [facility] [place] Last Infusion: 03/04/19 10:40 Dose: Infused Documented by: Dextrose/Sodium Chloride () 1,000 mls @ 125 mls/hr IV .Q8H [facility] [place] Last Infusion: 03/05/19 08:03 Dose: 125 mls/hr Documented by: Insulin Human Lispro (Humalog Kwikpen (Bkc)) 0 unit SC ACHS [facility] [place]; Protocol Last Admin: 03/05/19 07:55 Dose: 1 units Documented by: Nutritional Formula (Lactose Free) (Glucerna Shake) 120 ml PO 4X/DAY [facility] [place] Last Admin: 03/04/19 22:01 Dose: Not Given Documented by: Ondansetron HCl (Zofran) 4 mg IV Q8H PRN PRN PRN Reason: NAUSEA/VOMITING Oxycodone HCl (Oxyir) 5 - 10 mg PO Q6H PRN PRN Reason: MOD-SEVERE PAIN (4-10/10) Last Admin: 03/05/19 05:16 Dose: 10 mg Documented by: Pantoprazole Sodium (Protonix) 40 mg PO DAILY [facility] [place] Last Admin: 03/04/19 09:12 Dose: 40 mg Documented by: Rasagiline (Azilect) 1 mg PO DAILY [facility] [place] Last Admin: 03/04/19 11:27 Dose: 1 mg Documented by: Sodium Chloride () 10 - 40 ml IV UD PRN PRN Reason: SALINE FLUSH Last Admin: 03/04/19 08:37 Dose: 10 ml Documented by: Medical Necessity - Tobacco Use Smoking Status: Never smoker Assessment/Plan All Active Problems (Last Reviewed 03/04/19 @ 06:29 by Mason Stone MD) Septic shock (Acute) 1. Septic shock * resolved * unidentified source * may be a compination of an infection plus dehydration * cultures thus far negative. * continue broad spectrum abx (cefepime and vancomycin) * did receive IVF 30cc/kg IBW and aztreonam, vanc and tobramycin in ED * UA and CXR negative * continue cefepime for now, but if cultures are negative, then antibiotics can likely be d/c'd 2. DEBORA * resolved * likely prerenal * baseline creatinine 0.86 frin 01/27/19 3. Diarrhea * resolved * stool studies pending, but pt has had only 1 episode of diarrhea since arrival * if no further diarrhea, then doubtful this would be C. diff. 4. VTE prophylaxis: moderate risk. LMWH. Code Visit Inpatient E&M: 44979 Subs Hosp L2
[2019-03-05] MEDS: DEXTROMETHORPHAN HBR/QUINIDINE 1 EACH CAPSULE PO (09:46)
[2019-03-05] MEDS: Escitalopram Oxalate 10 MG Tablet PO (09:47)
[2019-03-05] MEDS: Pantoprazole Sodium 40 MG Tablet PO (09:48)
[2019-03-05] MEDS: Enoxaparin 40 MG/0.4 ML Syringe SC (09:50)
[2019-03-05 11:15] LABS: Bedside Glucose 128 mg/dL (70-110)
[2019-03-05] MEDS: Glucerna Shake 120 ML LIQUID PO ×3 (14:19→23:09)
--- NOTE | 2019-03-05 14:47 | CASEMGMT ---
Addendum entered by Ankit Davison 03/08/19 10:20: Late entry 03/05/19 1501. Script for wheeled walker left on front of chart. Dr. Salcido texted to notify re: script. Green sheet on chart and charge nurse aware (on report) to fax to [facility] when received. Mary REINOSO Addendum entered by Ankit Davison 03/05/19 15:01: Original Note: BRITTNEY RITCHIE Note: PT/OT notes reviewed. Spoke with pt and her daughter re: PT/OT recommendations. Pt is agreeable to have walker ordered. DME preference is [facility]. Discussed Home Health with patient and daughter- declining at this time. Daughter will be with pt at home, and pt states she is feeling weak from being ill and was independent prior to admission. RN CHAU let pt/daughter know CM is available if concerns re: dc arise. Mary MELOM
[2019-03-05 16:05] LABS: Bedside Glucose 134 mg/dL (70-110)
[2019-03-05 23:25] LABS: Bedside Glucose 158 mg/dL (70-110)
[2019-03-06 02:01] VITALS: BP 139/80; PULSE 99; RESP 18; TEMP 36.5; O2SAT 94
[2019-03-06 06:17] LABS: Anion Gap 4 (5-15); BUN 12 mg/dL (7-18); BUN/Creat Ratio 13.2 RATIO (10-20); Calcium,Total 9.2 mg/dL (8.5-10.1); Chloride 103 mmol/L (98-107); Creatinine, Serum 0.91 mg/dL (0.55-1.02); EST Glomerular Filtration Rate 68 mL/min (>60); Est Glom Filt Rate - Afr Amer 82 mL/min (>60); Estimated Creatinine Clearance 66.33 ml/min; Glucose 145 mg/dL (74-106); Potassium 4.5 mmol/L (3.5-5.1); Sodium Level 142 mmol/L (136-145)
[2019-03-06] MEDS: Carbidopa/Levodopa 25/100 Tablet PO (06:18)
[2019-03-06] MEDS: Gabapentin 100 MG Capsule PO (06:18)
[2019-03-06] MEDS: 0.9% NaCl Peripheral Flush Adult/Peds IV (06:18)
[2019-03-06] MEDS: Insulin Lispro 100 UNIT/ML INSULN.PEN SC (06:48)
[2019-03-06] MEDS: oxyCODONE 5 MG Tablet PO (06:52)
[2019-03-06 07:06] VITALS: O2SAT 97
[2019-03-06 07:10] LABS: Bedside Glucose 154 mg/dL (70-110)
--- NOTE | 2019-03-06 07:56 | PCM.PN.INT ---
Subjective: Patient did well overnight. Patient feels subjectively improved compared to yesterday and is asking if she can go home. No palpitations or chills of been reported. Patient has remained on room air. General: Alert, Oriented x3, Cooperative, No apparent distress, Well developed, Well nourished, - - No conversational dyspnea. HEENT: Atraumatic, PERRLA, EOMI, Normocephalic, - - No scleral icterus or injection noted. Oral: Moist Mucosa, No Gingival or Mucosal Lesions/ Ulcerations Neck: Supple, No Nodes, Trachea Midline, - - Right IJ is clean, dry and intact. Lungs: Clear to auscultation, Normal air movement, No rhonchi, No wheeze, No rales Cardiovascular: Regular rate, Regular Rhythm, Normal S1, Normal S2, No murmurs, No rub noted, No Gallop Abdomen: Bowel Sounds Present, Soft, Non Tender, Non-Distended, Obese Extremities: No clubbing, No cyanosis, Edema - Trace Skin: No rashes, No breakdown Musculoskeletal: No Tenderness to Palpation of Joints or Extremities Lymphatic: No Cervical, Supraclavicular, or Inguinal Adenopathy Neurological: Cranial nerves II-XII grossly intact, Neuro grossly intact, Motor Exam 5/5 strength throughout Psych/Mental Status: Alert and oriented to time, place, person, mood and affect Vital Signs Temp Pulse Resp BP Pulse Ox 36.5 C L 99 18 139/80 H 97 03/06/19 02:01 03/06/19 02:01 03/06/19 02:01 03/06/19 02:01 03/06/19 07:06 Oxygen Flow Rate (L/min) 2 Oxygen Delivery Method Room Air Weight: 86.2 kg Body Mass Index (BMI) 31.1 Finger Stick Blood Glucose 49 Intake and Output for Last 24 Hours 03/04/19 03/05/19 03/06/19 23:59 23:59 23:59 Intake Total 6914.08 / 7394.08 3219.58 / 3219.58 200 / 200 Output Total 2050 / 4150 5050 / 5050 Balance 4864.08 / 3244.08 -1830.42 / -1830.42 200 / 200 Labs (Last 48 Hours) 09/19/19 09/19/19 09/19/19 08:24 08:30 08:30 WBC RBC Hgb Hct MCV MCH MCHC RDW Std Deviation RDW Coeff of Arben Plt Count MPV Immature Gran % (Auto) Neut % (Auto) Lymph % (Auto) [place] % (Auto) Eos % (Auto) Baso % (Auto) Absolute Neuts (auto) Absolute Lymphs (auto) Nucleated RBC % Sodium 142 Potassium 4.9 Chloride 109 H Carbon Dioxide 28.0 Anion Gap 5 BUN 58 H Creatinine 2.46 H Estim Creat Clear Calc 24.54 Est GFR (MDRD) Af Amer 26 L Est GFR (MDRD) Non-Af 21 L BUN/Creatinine Ratio 23.6 H Glucose 52 L Calcium 7.9 L MRSA (PCR) Negative POC Glucose 66 L 03/04/19 03/04/19 03/04/19 11:31 13:46 17:01 WBC RBC Hgb Hct MCV MCH MCHC RDW Std Deviation RDW Coeff of Arben Plt Count MPV Immature Gran % (Auto) Neut % (Auto) Lymph % (Auto) [place] % (Auto) Eos % (Auto) Baso % (Auto) Absolute Neuts (auto) Absolute Lymphs (auto) Nucleated RBC % Sodium Potassium Chloride Carbon Dioxide Anion Gap BUN Creatinine Estim Creat Clear Calc Est GFR (MDRD) Af Amer Est GFR (MDRD) Non-Af BUN/Creatinine Ratio Glucose Calcium MRSA (PCR) POC Glucose 53 L 66 L 85 03/04/19 03/05/19 03/05/19 21:58 05:20 05:20 WBC 6.2 RBC 3.57 L Hgb 11.1 L Hct 34.9 L MCV 97.8 MCH 31.1 MCHC 31.8 L RDW Std Deviation 43.8 RDW Coeff of Arben 12.0 Plt Count 162 MPV 12.0 Immature Gran % (Auto) 0.200 Neut % (Auto) 46.4 L Lymph % (Auto) 41.7 H [place] % (Auto) 7.7 Eos % (Auto) 3.7 Baso % (Auto) 0.3 Absolute Neuts (auto) 2.9 Absolute Lymphs (auto) 2.59 Nucleated RBC % 0 Sodium 142 Potassium 5.0 Chloride 107 Carbon Dioxide 31.0 Anion Gap 4 L BUN 25 H Creatinine 1.21 H Estim Creat Clear Calc 49.88 Est GFR (MDRD) Af Amer 59 L Est GFR (MDRD) Non-Af 49 L BUN/Creatinine Ratio 20.7 H Glucose 138 H Calcium 8.3 L MRSA (PCR) POC Glucose 146 H 03/05/19 03/05/19 03/05/19 07:50 11:06 16:00 WBC RBC Hgb Hct MCV MCH MCHC RDW Std Deviation RDW Coeff of Arben Plt Count MPV Immature Gran % (Auto) Neut % (Auto) Lymph % (Auto) [place] % (Auto) Eos % (Auto) Baso % (Auto) Absolute Neuts (auto) Absolute Lymphs (auto) Nucleated RBC % Sodium Potassium Chloride Carbon Dioxide Anion Gap BUN Creatinine Estim Creat Clear Calc Est GFR (MDRD) Af Amer Est GFR (MDRD) Non-Af BUN/Creatinine Ratio Glucose Calcium MRSA (PCR) POC Glucose 185 H 128 H 134 H 03/05/19 03/06/19 03/06/19 23:16 05:45 06:46 WBC RBC Hgb Hct MCV MCH MCHC RDW Std Deviation RDW Coeff of Arben Plt Count MPV Immature Gran % (Auto) Neut % (Auto) Lymph % (Auto) [place] % (Auto) Eos % (Auto) Baso % (Auto) Absolute Neuts (auto) Absolute Lymphs (auto) Nucleated RBC % Sodium 142 Potassium 4.5 Chloride 103 Carbon Dioxide 35.0 H Anion Gap 4 L BUN 12 Creatinine 0.91 Estim Creat Clear Calc 66.33 Est GFR (MDRD) Af Amer 82 Est GFR (MDRD) Non-Af 68 BUN/Creatinine Ratio 13.2 Glucose 145 H Calcium 9.2 MRSA (PCR) POC Glucose 158 H 154 H Microbiology 03/04/19 02:10 Urine, Random Urine Culture - Preliminary Culture exhibits no growth. Medical Necessity - Tobacco Use Smoking Status: Never smoker Assessment/Plan All Active Problems (Last Reviewed 03/04/19 @ 06:29 by Mason Stone MD) Septic shock (Acute) RECOMMENDATIONS: 1. Weekly okay to transition to p.o. antibiotics and complete a 10-day course 2. Walking oximetry prior to discharge 3. No outpatient follow-up would be indicated 4. Okay to discharge from a pulmonary/cc perspective IMPRESSIONS: 1. Septic shock Patient much improved from presentation. Patient did have a 3-day history of diarrhea, but appears to be fluid resuscitated and euvolemic at this time. [place] okay to transition to p.o antibiotics and complete a 10-day course. Patient has had normalization in blood pressures. 2. Encephalopathy Resolved. Unclear if this is secondary to retention of baseline medications. Patient's renal function is much improved compared to previous. Likely okay to reinitiate baseline medications in a stepwise fashion. 3. Acute kidney injury Resolved. Likely secondary to prerenal etiology and patient is responded well to stabilization of hemodynamics and fluid resuscitation. We will continue to monitor. 4. History of Parkinson's/chronic opiate and benzodiazepine dependency/diabetes mellitus/GERD/neuropathy/hypertension/reported lupus Complicates care, management, recovery and prognosis. Continue to hold morphine and benzodiazepines. Continue sliding scale coverage. Continue to hold lisinopril. Lacy rash with sun exposure consistent with reported lupus. Code Visit Inpatient E&M: 39143 Subs Hosp L2
--- NOTE | 2019-03-06 09:01 | DCINST_ITS ---
- Discharge Diagnoses Current Active Problems: Current Active and Chronic Problems (Last Reviewed 03/04/19 @ 06:29 by Mason Stone MD) Septic shock (Acute) You will use the following diet at home:: No restrictions Your food should be the consistency of: Regular Your liquids should be the consistency of: Regular/Thin Discharge Activity: Return to Normal Activity Call your doctor if you observe: Fever of 101 or Higher, Shortness of breath, Fainting spells Allergies/Adverse Reactions: Allergies indomethacin [From Indocin] Allergy (Verified 10/02/18 13:01) Rash indomethacin sodium [From Indocin] Allergy (Verified 10/02/18 13:01) Rash Penicillins Allergy (Verified 10/02/18 13:01) Rash clarithromycin [From Biaxin] Adverse Reaction (Verified 10/02/18 13:01) Diarrhea Medications to take at Discharge Propranolol HCl [Inderal LA (Beta Connor)] 60 mg PO BID 03/17/13 Rasagiline Mesylate [Azilect] 1 mg PO DAILY 03/17/13 metFORMIN (XR) [Glucophage Xr] 1,000 mg PO BID 03/17/13 Nuedexta 04/04 1 tab PO DAILY 03/18/13 Carbidopa/Levodopa [Sinemet Cr 25-100 Tablet] 1 tab PO BID 01/15/15 morphine SR tablet [Ms Contin] 15 mg PO BID 01/15/15 Carbidopa/Levodopa/Entacapone [Stalevo 150 Tablet] 1 ea PO BID 05/21/16 Oxycodone HCl/Acetaminophen [Percocet 5-325] 1 - 2 tab PO Q6H PRN PRN #40 tab 02/05/17 Ondansetron [Zofran Odt] 4 mg PO Q8H PRN PRN #10 tablet 11/15/17 Clonazepam 1 mg PO QHS 03/04/19 Dulaglutide [Trulicity] 0.75 mg SQ QWEEK 03/04/19 Escitalopram Oxalate [Lexapro] 10 mg PO DAILY 03/04/19 Esomeprazole Mag Trihydrate [Nexium] 40 mg PO DAILY 03/04/19 Gabapentin 600 mg PO TID 03/04/19 Glimepiride [Amaryl] 1 mg PO DAILY 03/04/19 Lisinopril 5 mg PO DAILY 09/19/19 Acetaminophen [Tylenol Tablet] 650 mg PO Q6H PRN PRN tablet 03/06/19 Primary Care Physician: Clemente Randhawa MD [Primary Care Provider] - Within 2 Weeks Test Results: Test results from this visit will be discussed in further detail at your follow- up appointment, if applicable. Proposed Discharge Date: 03/06/19
[2019-03-06 09:02] VITALS: BP 134/87; PULSE 103; RESP 18; TEMP 36.6; O2SAT 95
--- NOTE | 2019-03-06 09:03 | DS.PCM_ITS ---
Discharge Date and Diagnosis - Problem List Patient Problems: Active and Suspected Problems (Last Reviewed 03/04/19 @ 06:29 by Mason Stone MD) DEBORA (acute kidney injury) (Acute) Septic shock (Acute) Date of Admission: 03/04/19 Date of Discharge: 03/06/19 - Primary Discharge Diagnosis Active and Suspected Problems (Last Reviewed 03/04/19 @ 06:29 by Mason Stone MD) DEBORA (acute kidney injury) (Acute) Septic shock (Acute) - Secondary Discharge Diagnosis Chronic Problems (Last Reviewed 03/04/19 @ 06:29 by Mason Stone MD) Irritable bowel syndrome (IBS) (Chronic) Osteoarthritis of lumbosacral spine (Chronic) Chronic low back pain Multiple surgeries Pain management Gastroparesis (Chronic) Parkinsons disease (Chronic) Diabetes mellitus (Chronic) Hospital Course and Treatment Imaging Results: Clinical Impression(s) from Imaging Studies Brain CT 03/04/19 01:51 IMPRESSION: No acute territorial infarct or intracranial hemorrhage identified. If patient's symptomology persists or there is continuing clinical concern MRI or follow-up CT scan performed. Electronically Signed: Mahesh Richter, at 3:04 EDT Tel , Service support , Chest X-Ray 03/04/19 01:51 IMPRESSION: Degenerative changes, as described above. No demonstrated acute cardiopulmonary process. Electronically Signed: Mahesh Richter, at 2:54 EDT Tel , Service support , Cervical Spine CT 03/04/19 01:52 IMPRESSION: Multilevel degenerative changes. No acute fractures or subluxation. Electronically Signed: Mahesh Richter, at 3:08 EDT Tel , Service support , Chest X-Ray 03/04/19 04:11 IMPRESSION: No acute cardiopulmonary disease. Right sided central line tip overlying the base of the right atrium. Electronically Signed: Stephon Hayden MD at 4:55 EDT , Service support , Chest X-Ray 03/04/19 05:31 IMPRESSION: There is been some retraction of the internal jugular catheter on the right. The tip now projects over the upper right atrium just inferior to the cavoatrial junction. No pneumothorax identified. No acute cardiopulmonary disease. Electronically Signed: Mahesh Richter, at 5:55 EDT Tel , Service support , Javier Mayberry: HODA Operations: None Procedures: None Summary of Care Provided: The patient is a 58 year old F presents with a lightheadedness and multiple falls. Patient was found to be in septic shock with a lactic acid greater than 4. Source was not identified. Patient was placed on broad-spectrum antibiotics. Work-up came back unremarkable.-Patient had septic shock due to viral etiology and not bacterial and likely combined with just volume depletion and dehydration due to her underlying illness. Patient responded well and will be discharged home in stable condition. Patient was evaluated by therapy and the patient denied any home health care needs. 1. Septic shock * resolved * unidentified source * may be a compination of an infection plus dehydration * cultures thus far negative. * DC antibiotics * did receive IVF 30cc/kg IBW and aztreonam, vanc and tobramycin in ED * UA and CXR negative * continue cefepime for now, but if cultures are negative, then antibiotics can likely be d/c'd 2. DEBORA * resolved * likely prerenal * baseline creatinine 0.86 frin 01/27/19 3. Diarrhea * resolved * stool studies pending, but pt has had only 1 episode of diarrhea since arrival * if no further diarrhea, then doubtful this would be C. diff.[] Patient Problems: Active and Suspected Problems (Last Reviewed 03/04/19 @ 06:29 by Mason Stone MD) DEBORA (acute kidney injury) (Acute) Septic shock (Acute) - Physical Exam General: Alert, No apparent distress HEENT: Normocephalic Oral: Moist Mucosa, No Gingival or Mucosal Lesions/ Ulcerations Neck: No Nodes, Trachea Midline, - - R TLC in neck Lungs: Clear to auscultation, Normal air movement, No rhonchi, No wheeze Cardiovascular: Regular rate, Regular Rhythm, Normal S1, Normal S2, No murmurs Abdomen: Bowel Sounds Present, Soft, Non Tender, Non-Distended Extremities: No edema, No Calf Tenderness Vital Signs Temp Pulse Resp BP Pulse Ox 36.6 C 103 H 18 134/87 H 95 03/06/19 09:02 03/06/19 09:02 03/06/19 09:02 03/06/19 09:02 03/06/19 09:02 Oxygen Flow Rate (L/min) 2 Oxygen Delivery Method Room Air Weight: 86.2 kg Body Mass Index (BMI) 31.1 Finger Stick Blood Glucose 49 Intake and Output for Last 24 Hours 03/04/19 03/05/19 03/06/19 23:59 23:59 23:59 Intake Total 6914.08 / 7394.08 3219.58 / 3219.58 200 / 200 Output Total 2050 / 4150 5050 / 5050 Balance 4864.08 / 3244.08 -1830.42 / -1830.42 200 / 200 Microbiology Past 72 Hours 03/04/19 02:05 Blood Culture - Preliminary Blood Culture (Wb) - Anticubital Right No growth in 48 hours. 03/04/19 01:52 Blood Culture - Preliminary Blood Culture (Wb) - Anticubital Left No growth in 48 hours. 03/04/19 02:10 Urine Culture - Final Urine, Random Culture exhibits no growth. Laboratory Tests Past 24 Hrs 03/06/19 05:45 Sodium 142 Potassium 4.5 Chloride 103 Carbon Dioxide 35.0 H Anion Gap 4 L BUN 12 Creatinine 0.91 Estim Creat Clear Calc 66.33 Est GFR (MDRD) Af Amer 82 Est GFR (MDRD) Non-Af 68 BUN/Creatinine Ratio 13.2 Glucose 145 H Calcium 9.2 POC Glucose 03/06/19 03/05/19 03/05/19 06:46 23:16 16:00 POC Glucose 154 H 158 H 134 H 03/05/19 11:06 POC Glucose 128 H Discharge Diet: No Restrictions Discharge Activity: Return to Normal Activity Call your doctor if you observe: Fever of 101 or Higher, Shortness of breath, Fainting spells Home Medications: Medications to take at Discharge Propranolol HCl [Inderal LA (Beta Connor)] 60 mg PO BID 03/17/13 Rasagiline Mesylate [Azilect] 1 mg PO DAILY 03/17/13 metFORMIN (XR) [Glucophage Xr] 1,000 mg PO BID 03/17/13 Nuedexta 04/04 1 tab PO DAILY 03/18/13 Carbidopa/Levodopa [Sinemet Cr 25-100 Tablet] 1 tab PO BID 01/15/15 morphine SR tablet [Ms Contin] 15 mg PO BID 01/15/15 Carbidopa/Levodopa/Entacapone [Stalevo 150 Tablet] 1 ea PO BID 05/21/16 Oxycodone HCl/Acetaminophen [Percocet 5-325] 1 - 2 tab PO Q6H PRN PRN #40 tab 02/05/17 Ondansetron [Zofran Odt] 4 mg PO Q8H PRN PRN #10 tablet 11/15/17 Clonazepam 1 mg PO QHS 03/04/19 Dulaglutide [Trulicity] 0.75 mg SQ QWEEK 03/04/19 Escitalopram Oxalate [Lexapro] 10 mg PO DAILY 03/04/19 Esomeprazole Mag Trihydrate [Nexium] 40 mg PO DAILY 03/04/19 Gabapentin 600 mg PO TID 03/04/19 Glimepiride [Amaryl] 1 mg PO DAILY 03/04/19 Lisinopril 5 mg PO DAILY 03/04/19 Acetaminophen [Tylenol Tablet] 650 mg PO Q6H PRN PRN tablet 03/06/19 Primary Care Physician: Clemente Randhawa MD [Primary Care Provider] - Within 2 Weeks Patient Instructions: Understanding Sepsis Disposition: Home Minutes spent on discharge:: 32 Patient Condition:: Good Medical Necessity - Tobacco Use Smoking Status: Never smoker Meaningful Use Info Meaningful Use Diagnoses (Choose all that apply): None applicable Code Visit Inpatient E&M: 49954 Disch Hosp
[2019-03-06] MEDS: Pantoprazole Sodium 40 MG Tablet PO (09:24)
[2019-03-06] MEDS: Escitalopram Oxalate 10 MG Tablet PO (09:24)
[2019-03-06] MEDS: Enoxaparin 40 MG/0.4 ML Syringe SC (09:24)
--- NOTE | 2019-03-08 10:35 | CASEMGMT ---
RN CM Note: [place] Josette [place] [facility] [place] walker was not [place]. Per CM for weekend, she asked PA to sign script, but does not know if it was faxed to [facility]. Green sheet was on chart. -This RN CM called to Dr. Randhawa's office and spoke with nurse Mena requesting Dr. Randhawa fax script to [facility]. DC Summary faxed to . Mary YOUSSEFN RN ACM
--- NOTE | 2019-03-08 15:57 | CASEMGMT ---
RNCM checked with medical records. Script is in echart, but not signed. Call to Rose @ [facility] [place]. She will fax a script to Dr. Randhawa's office. Mary HERNANDEZ RN ACM
--- NOTE | 2019-03-09 13:59 | CASEMGMT ---
Case Management D f/u Call: DC Date: 03/06/19 DC Diagnosis: DEBORA (acute kidney injury) (Acute), Septic shock (Acute) DC Disposition: Home. DME Walker Rx to [facility]: 03/18 Called patient Cell number listed on Demographics, phone answered and female answered phone- stated she was the patient. However, when CM introduced role and asked how she was doing, female on line stated that she is not doing too good, stated she felt that she was sent home too early. When CM then clarified to whom this physician underwriter was speaking with and that she told this physician underwriter she was the patient and now states she is not doing well, this physician underwriter asked if this was the patient's daughter and replied yes, Cm asked name of daughter that was speaking with this physician underwriter and was hung up on. No further actions taken. Donya Huang RNCM
--- NOTE | 2019-03-10 12:22 | CASEMGMT ---
Discharge follow-up call attempted on this date to pt's listed cell phone number. Pt's daughter Makeda answered and stated pt was not available. After introduction of myself, Makeda relayed that pt is moving back and forth between her and the pt's other daughter's home and stated the pt is not doing well. When asked what this meant, Makeda stated pt had a fall upon arrival home and that the pt was continuing to have symptoms including difficulty voiding. When asked, Makeda states pt did hit her shoulder and back upon falling and states she has been in contact with the pt's PCP Dr. Randhawa. Per Makeda, pt was seen by Dr. Randhawa on Friday and xrays were taken. Pt has an additional follow-up appointment this Friday with Dr. Randhawa. Makeda states pt was able to obtain needed medications and denied any related concerns. Encouraged Makeda to remain in contact with Dr. Randhawa for continued follow-up. Makeda expressed many concerns about the pt's inpatient care and discharge. This RN CHAU referred Makeda to the patient advocate for further resolution. Makeda stated that nursing and nursing management were aware of her and her family's concerns during the patient's stay. Lennox Tejada RN CM
== END 2019-03-06 10:25 | disposition home or self-care (01) | DRG 871 ==
LOC: ED 02:00 → ICU 05:19 → MS3 03-05 10:18
PROVIDERS: Internal Medicine Critical Care Medicine; Admitting Provider Hospitalist; Emergency Provider Emergency Medicine; Family Provider Family Medicine; PCP Family Medicine; Referring Provider Hospitalist
DX: A41.9 Sepsis, unspecified organism (principal); R65.21 Severe sepsis with septic shock; N17.9 Acute kidney failure, unspecified; G93.40 Encephalopathy, unspecified; I10 Essential (primary) hypertension; E11.43 Type 2 diabetes mellitus with diabetic autonomic (poly)neuropathy; K31.84 Gastroparesis; K58.0 Irritable bowel syndrome with diarrhea; E87.5 Hyperkalemia; G20 Parkinson's disease; F32.9 Major depressive disorder, single episode, unspecified; F41.9 Anxiety disorder, unspecified; K21.9 Gastro-esophageal reflux disease without esophagitis; M47.817 Spondylosis without myelopathy or radiculopathy, lumbosacral region; R29.6 Repeated falls; Z79.84 Long term (current) use of oral hypoglycemic drugs; Z79.899 Other long term (current) drug therapy
CPT/HCPCS: 36415; 36556; 70450; 71045; 72125; 80048; 80053; 81001; 82009; 82550; 82962; 83605; 84484; 85025; 87040; 87086; 87641; 93005; 93306; 97162; 97166; 97530; 97802; 99285; J7030; J7040; A4216; J7799

== ENCOUNTER → 2019-03-08 14:18 | Outpatient (CLI) | payer MEDICARE, MEDICAID, SELFPAY ==
[2019-03-04 06:30] VITALS: BMI 31.1
--- NOTE | 2019-03-08 14:26 | RAD_ITS ---
STUDY: X-RAY - RIGHT SHOULDER REASON FOR EXAM: Shoulder pain, fall last week. TECHNIQUE: 4 view(s) of the shoulder. COMPARISON: Radiographs 03/30/2015. FINDINGS: Normal glenohumeral articulation. There is acromioclavicular arthrosis. There is a subacromial enthesophyte. Normal humeral head and visualized proximal humerus. There is calcific tendinitis. Normal visualized pulmonary apex. RAD/Shoulder min 2 Views IMPRESSION: Interval development of calcific tendinitis. Acromioclavicular arthrosis. Electronically Signed: Aron Pastrana MD at 15:26 EDT Tel , Service support ,
== END ==
PROVIDERS: Family Provider Family Medicine; PCP Family Medicine; Referring Provider Nurse Practitioner Family; Visit Provider Nurse Practitioner Family
DX: S49.91XA Unspecified injury of right shoulder and upper arm, initial encounter (principal); W19.XXXA Unspecified fall, initial encounter
CPT/HCPCS: 73030

== ENCOUNTER → 2019-03-12 11:56 | Outpatient (CLI) | payer MEDICARE, MEDICAID, SELFPAY ==
[2019-03-04 06:30] VITALS: BMI 31.1
[2019-03-12 12:00] LABS: Red Blood Cells-Urine 0 SEEN /hpf (0-5); Squamous Epithelial Cells - UA 0 SEEN /hpf (5-10)
[2019-03-12 14:26] LABS: Absolute Lymphocyte Count 2.49 X10^3/uL (0.83-4.51); Absolute Neutrophil Count 5.6 X10^3/uL (2.0-7.7); Basophil# 0.05 X10^3/uL; Basophil% 0.6 % (0-1); Eosinophil# 0.18 X10^3/uL; Hematocrit 39.2 % (37-47); Hemoglobin 12.2 g/dL (12.0-15.0); Lymphocyte # 2.49 X10^3/ul (4.0); Lymphocyte % 27.5 % (19-41); Mean Corp Hgb Conc 31.1 g/dL (32-36); Mean Corpuscular Volume 96.3 fL (81-99); Mean Platelet Vol. 11.9 fl (6.2-12.0); Monocyte# 0.66 X10^3/uL; Monocyte% 7.3 % (0-10); NRBC Flagged by Analyzer 0 % (0-5); Neutrophil # 5.63 X10^3/uL (2.7-7.7); Neutrophil % 62.3 % (47-70); Platelet Count 264 K/mm3 (150-450); RBC Distribution Width CV 12.9 % (11.6-14.6); RBC Distribution Width SD 44.5 fl (35.1-43.9); Red Blood Count 4.07 M/mm3 (4.2-5.4)
[2019-03-12 14:42] LABS: Color, Urine Yellow (Yellow); Glucose, Dipstick 50 mg/dl (Normal); Ketone-Dipstick 5 mg/dl (Negative); Leukocyte Esterase-Dipstick Negative /ul (Negative); Nitrite-Dipstick Negative (Negative); Occult Blood-Urine Negative /ul (Negative); Protein-Dipstick Negative (Negative); Specific Gravity, Urine 1.015 (1.002-1.030); Urine Bilirubin Dipstick Negative (Negative); Urine Clarity Clear (Clear); Urine Urobilinogen Normal (Normal)
[2019-03-12 14:55] LABS: Anion Gap 5 (5-15); BUN 8 mg/dL (7-18); Calcium,Total 9.3 mg/dL (8.5-10.1); Chloride 103 mmol/L (98-107); Creatinine, Serum 0.88 mg/dL (0.55-1.02); EST Glomerular Filtration Rate 70 mL/min (>60); Est Glom Filt Rate - Afr Amer 85 mL/min (>60); Glucose 159 mg/dL (74-106); Potassium 3.6 mmol/L (3.5-5.1); Prealbumin 25.3 mg/dL (20.0-40.0); Sodium Level 138 mmol/L (136-145); Thyroid Stim Hormone (TSH) 1.48 uIU/mL (0.358-3.74)
[2019-03-12 15:00] LABS: Bacteria RARE /hpf (None Seen); Mucous, Urine 1+ /hpf (<or=2+); White Blood Cells 0-5 SEEN /hpf (0-5)
== END ==
PROVIDERS: Family Provider Family Medicine; PCP Family Medicine; Referring Provider Family Medicine; Visit Provider Family Medicine
DX: I10 Essential (primary) hypertension (principal); R93.9 Diagnostic imaging inconclusive due to excess body fat of patient; W19.XXXA Unspecified fall, initial encounter
CPT/HCPCS: 36415; 80048; 81001; 84134; 84443; 85025; 87086

== ENCOUNTER 2019-03-18 14:50 | Inpatient (IN) | payer MEDICARE, MEDICAID, SELFPAY ==
[2019-03-04 06:30] VITALS: BMI 31.1
[2019-03-18] VITALS (12 sets, daily range): BP systolic 70–105; BP diastolic 52–70; PULSE 80–98; RESP 10–16; TEMP 36.6–37; O2SAT 94–99; BMI 29.0; BMI 29.9
[2019-03-18 15:05] LABS: Bedside Glucose 126 mg/dL (70-110)
--- NOTE | 2019-03-18 15:26 | CT_ITS ---
STUDY: CT BRAIN WITHOUT CONTRAST REASON FOR EXAM: Female, 58 years old. Recent septic infection. Multiple falls. History of Parkinson's disease. RADIATION DOSAGE (If Supplied By Facility): CTDIvol = ( 44.99 ) mGy, DLP = ( 779.24 ) mGycm TECHNIQUE: Transaxial CT imaging of the brain was performed without administration of intravenous contrast material. Individualized dose optimization techniques were used for this CT. COMPARISON: March 04, 2019. FINDINGS: Normal soft tissue structures. Normal calvarium. Normal size ventricles and extra-axial spaces for the patient's age. Normal white matter tracts of the cerebral hemispheres. Normal basal ganglia and thalami. Normal brainstem. Normal cerebellum. There is no intracranial hemorrhage. There are no findings of an acute ischemic infarction. Normal visualized paranasal sinuses. CT/Brain/Head without Contrast IMPRESSION: No acute intracranial or calvarial abnormality. There is no interval change. Electronically Signed: Lefty iNchole DO at 16:49 EDT Tel [phone], Service support ,
--- NOTE | 2019-03-18 15:26 | EKG12_ITS ---
Test Reason : R/O SEPSIS Blood Pressure : / mmHG Vent. Rate : 082 BPM Atrial Rate : 082 BPM P-R Int : 160 ms QRS Dur : 084 ms QT Int : 384 ms P-R-T Axes : 042 014 060 degrees QTc Int : 448 ms Normal sinus rhythm Nonspecific T wave abnormality Abnormal ECG Confirmed by DEZ BERGMAN ([id number]), desk editor RYAN MCARTHUR ([id number]) on 03/22/2019 12:23:32 PM Referred By: Aime Brumfield Confirmed By:DEZ BERGMAN
--- NOTE | 2019-03-18 15:27 | ED.VIS.GEN ---
History of Present Illness Chief Complaint: Complaint Informant: Patient Onset: Yesterday Context: Gradual Onset Timing: Continuous Current Severity: Moderate Maximum Severity: Moderate Narrative: The patient presents to the emergency department with lightheadedness, nausea, and diminished urinary output. The patient was recently admitted for septic shock with unknown defined source. She was discharged home. She apparently had a near syncopal episode and fell and hit her head when she was at home about 15 days ago. She followed up with her primary care and was diagnosed with concussion. She states she just has not felt well since then. Over the past 24 hours, she is been nauseated and lightheaded. She states it feels very similar to when she was in before. She denies any fever or chills. She denies any cough. She does admit to decreased urinary output today. She is been compliant with her medication. She denies any recent change in medication. She denies any chest pain or dyspnea. Prior similar symptoms: Yes Recent Illness/Hospitalization: Yes Past Medical History - Allergies and Home Meds Allergies/Adverse Reactions: Allergies indomethacin [From Indocin] Allergy (Verified 10/02/18 13:01) Rash indomethacin sodium [From Indocin] Allergy (Verified 10/02/18 13:01) Rash Penicillins Allergy (Verified 10/02/18 13:01) Rash clarithromycin [From Biaxin] Adverse Reaction (Verified 10/02/18 13:01) Diarrhea Primary Care Physician: Clemente Randhawa MD [Primary Care Provider] - Prior records reviewed: Yes Past Medical History: - - Parkinson's, lupus Surgical History: cholecystectomy, hysterectomy Smoking Status: Never smoker - Family History Maternal Family History: Family History (Last Reviewed 03/04/19 @ 06:30 by Mason Stone MD) Brother Heart disease Mother Osteoarthritis Family History: Reports: No pertinent history Review of Systems General: Reports: Malaise. Denies: Fever Eyes: Denies: Visual changes - bilaterally, Diplopia ENT: Denies: Rhinorrhea, Sore throat Cardiovascular: Denies: Chest pain, Palpitations Respiratory: Denies: Dyspnea, Cough, Dyspnea on exertion Gastrointestinal: Reports: Nausea. Denies: Abdominal pain, Vomiting, Diarrhea, Melena, Hematochezia Genitourinary: Denies: Dysuria, Hematuria, Frequency Musculoskeletal: Reports: Myalgias, Arthralgias. Denies: Back pain, Extremity Pain Skin: Denies: Rash, Wounds Neurological: Reports: Weakness. Denies: Headache, Numbness Psych: Denies: Depression Endocrine: Denies: Polyuria Physical Exam Vital Signs/Narrative: Vital Signs Temp Pulse Resp BP Pulse Ox 03/18/19 14:51 97.9 F 89 16 70/52 L 96 Diagnostic/Tx/Re-eval Chest X-Ray - ED: 1 View, Read by ED Physician, Normal, Heart, Lungs, Mediastinum, No Infiltrates Clinical Impression(s) from Imaging Studies Brain CT 03/18/19 15:26 IMPRESSION: No acute intracranial or calvarial abnormality. There is no interval change. Electronically Signed: Lefty Nichole DO at 16:49 EDT Tel [phone], Service support , Chest X-Ray 03/18/19 15:28 IMPRESSION: No acute abnormality is seen. Electronically Signed: Nolberto Dotson, at 15:52 EDT , Service support , Clinical Impression(s) from Imaging Studies Brain CT 03/18/19 15:26 IMPRESSION: No acute intracranial or calvarial abnormality. There is no interval change. Electronically Signed: Lefty Nichole DO at 16:49 EDT Tel [phone], Service support , Chest X-Ray 03/18/19 15:28 IMPRESSION: No acute abnormality is seen. Electronically Signed: Nolberto Dotson, at 15:52 EDT , Service support , Abnormal Lab Results 03/18/19 03/18/19 03/18/19 14:58 15:40 15:40 WBC 12.7 H RBC 4.43 Hgb 13.4 Hct 42.3 MCV 95.5 MCH 30.2 MCHC 31.7 L RDW Std Deviation 45.3 H RDW Coeff of Arben 13.0 Plt Count 301 MPV 11.4 Immature Gran % (Auto) 0.500 Neut % (Auto) 56.7 Lymph % (Auto) 32.5 Reeves % (Auto) 8.0 Eos % (Auto) 2.0 Baso % (Auto) 0.3 Absolute Neuts (auto) 7.2 Absolute Lymphs (auto) 4.12 Nucleated RBC % 0 PT 13.6 INR 1.1 APTT 31.5 Sodium Potassium Chloride Carbon Dioxide Anion Gap BUN Creatinine Estim Creat Clear Calc Est GFR (MDRD) Af Amer Est GFR (MDRD) Non-Af BUN/Creatinine Ratio Glucose Lactic Acid Calcium Total Bilirubin AST ALT Alkaline Phosphatase Total Creatine Kinase Total Protein Albumin Globulin Albumin/Globulin Ratio TSH Cortisol POC Glucose 126 H 03/18/19 03/18/19 03/18/19 15:40 15:40 16:25 WBC RBC Hgb Hct MCV MCH MCHC RDW Std Deviation RDW Coeff of Arben Plt Count MPV Immature Gran % (Auto) Neut % (Auto) Lymph % (Auto) Reeves % (Auto) Eos % (Auto) Baso % (Auto) Absolute Neuts (auto) Absolute Lymphs (auto) Nucleated RBC % PT INR APTT Sodium 135 L Potassium 3.9 Chloride 100 Carbon Dioxide 28.0 Anion Gap 7 BUN 15 Creatinine 1.86 H Estim Creat Clear Calc 32.45 Est GFR (MDRD) Af Amer 36 L Est GFR (MDRD) Non-Af 30 L BUN/Creatinine Ratio 8.1 L Glucose 101 Lactic Acid 2.6 H Calcium 9.5 Total Bilirubin 0.90 AST 13 L ALT 8 L Alkaline Phosphatase 80 Total Creatine Kinase 38 Total Protein 8.2 Albumin 4.2 Globulin 4.0 Albumin/Globulin Ratio 1.0 TSH 4.90 H Cortisol 5.20 POC Glucose - Rhythm Strip Rhythm Strip: Sinus Rhythm Rate: 80 Ectopy: None - Medical Decision Making The patient presents to the emergency department symptom medic hypertension. She is on a few different medications that would interact with her blood pressure along with long-acting pain medication. She has not had fever. She denies any diarrhea. Metabolic work-up was pursued. Patient does have evidence of acute kidney injury and a mild elevation of her lactic. However, she has no septic source. She did have the same presentation 3 weeks ago and no source was identified. I do feel that the most prudent thing would be to hold on antibiotics. I did add a cortisol level and the patient was given Solu-Cortef. She is fluid responsive. Her repeat blood pressure is now 110 systolic. However, given evidence of acute kidney injury I do feel that she would benefit from admission. The patient was discussed with the hospitalist. Impression 1. Dehydration 2. Acute kidney injury 3. Lactic acidosis ED Disposition - Plan for ED Patient: Referrals: Clemente Randhawa MD [Primary Care Provider] -
--- NOTE | 2019-03-18 15:28 | RAD_ITS ---
STUDY: X-RAY CHEST REASON FOR EXAM: Female, 58 years old. Inability to urinate. TECHNIQUE: Single AP portable view of the chest. COMPARISON: Comparison is made with prior study of March 04, 2000. FINDINGS: The previously seen right-sided central catheter has been removed. The lungs are clear and expanded. There is no demonstrated pleural abnormality. Normal size heart. Normal mediastinum and ozzie. Normal visualized pulmonary arteries. There is atherosclerotic tortuosity of the aortic arch and descending thoracic aorta. There are diffuse degenerative changes of the visualized thoracic spine. Normal visualized ribs, clavicles, and shoulders. There is no demonstrated abnormality of the visualized soft tissue structures of the upper abdomen. RAD/Chest 1 View (Portable) IMPRESSION: No acute abnormality is seen. Electronically Signed: Nolberto Dotson, at 15:52 EDT , Service support ,
[2019-03-18 15:54] LABS: Absolute Lymphocyte Count 4.12 X10^3/uL (0.83-4.51); Absolute Neutrophil Count 7.2 X10^3/uL (2.0-7.7); Basophil# 0.04 X10^3/uL; Basophil% 0.3 % (0-1); Eosinophil# 0.25 X10^3/uL; Hematocrit 42.3 % (37-47); Hemoglobin 13.4 g/dL (12.0-15.0); Lymphocyte # 4.12 X10^3/ul (4.0); Lymphocyte % 32.5 % (19-41); Mean Corp Hgb Conc 31.7 g/dL (32-36); Mean Corpuscular Hgb 30.2 pg (27.0-32.0); Mean Corpuscular Volume 95.5 fL (81-99); Mean Platelet Vol. 11.4 fl (6.2-12.0); Monocyte# 1.01 X10^3/uL; NRBC Flagged by Analyzer 0 % (0-5); Neutrophil % 56.7 % (47-70); Platelet Count 301 K/mm3 (150-450); RBC Distribution Width SD 45.3 fl (35.1-43.9); Red Blood Count 4.43 M/mm3 (4.2-5.4); White Blood Count 12.7 K/mm3 (4.4-11.0)
[2019-03-18] MEDS: 0.9% Normal Saline 1,000 ML 999 ML IV ×3 (15:57→17:43)
[2019-03-18 16:12] LABS: International Normalized Ratio 1.1; Prothrombin Time (Protime)PT. 13.6 SECONDS (11.7-14.9)
[2019-03-18 16:13] LABS: Partial Thromboplast Time 31.5 Seconds (24.1-36.2)
[2019-03-18 16:14] LABS: AST(SGOT) 13 U/L (15-37); Alanine Aminotransfer ALT/SGPT 8 U/L (13-56); Albumin, Serum 4.2 g/dL (3.2-5.0); Alkaline Phosphatase 80 U/L (45-117); Anion Gap 7 (5-15); BUN 15 mg/dL (7-18); BUN/Creat Ratio 8.1 RATIO (10-20); CPK Total, Creatine Kinase 38 U/L (26-192); Calcium,Total 9.5 mg/dL (8.5-10.1); Chloride 100 mmol/L (98-107); Creatinine, Serum 1.86 mg/dL (0.55-1.02); EST Glomerular Filtration Rate 30 mL/min (>60); Est Glom Filt Rate - Afr Amer 36 mL/min (>60); Estimated Creatinine Clearance 32.45 ml/min; Glucose 101 mg/dL (74-106); Potassium 3.9 mmol/L (3.5-5.1); Protein, Total 8.2 g/dL (6.4-8.2); Sodium Level 135 mmol/L (136-145)
[2019-03-18 16:20] LABS: Lactic Acid 2.6 mmol/L (0.4-2.0)
--- NOTE | 2019-03-18 16:20 | ED.RN ---
LAB RESULTED LACTIC 2.6, PHYSICIAN NOTIFIED
[2019-03-18] MEDS: Hydrocortisone Sod Succinate 100 MG/2 ML Vial IV (16:59)
[2019-03-18 17:13] LABS: Bacteria 0 SEEN /hpf (None Seen); Red Blood Cells-Urine 0 SEEN /hpf (0-5); White Blood Cells 0 SEEN /hpf (0-5)
[2019-03-18 17:40] LABS: Bedside Glucose 52 mg/dL (70-110)
--- NOTE | 2019-03-18 17:44 | HP.PCM_ITS ---
Problem List (1) Hypotension Status: Acute (2) DEBORA (acute kidney injury) Status: Acute (3) Esophageal stricture Status: Chronic (4) Irritable bowel syndrome (IBS) Status: Chronic (5) Gastroparesis Status: Chronic (6) Parkinsons disease Status: Chronic (7) Diabetes mellitus Status: Chronic Qualifiers: Diabetes mellitus type: type 2 History of Present Illness Date of Admission: 03/18/19 Chief Complaint: dizziness The patient is a 58 year old F with pmhx of recent admission for DEBORA and septic shock, treated in the ICU with no infectious etiology found, also with a hx of Parkinsons, gastroparesis, DMt2, Lupus, and IBS who presented to the emergency room with complaints of lightheadedness and dizziness. The patient had a fall the day after discharge from the hospital and sustained a concussion at that time, was treated and diagnosed by her PCP. She has been doing well since then however today she became lightheaded and dizzy. Again she lost her balance and fell into a wall. She had no loss of consciousness. She denies sustaining injuries on this fall. She also has noticed that she has had decreased urinary output and difficulty emptying her bladder, requiring placement of a catheter in the emergency room. She came to the emergency room her blood pressure was found to be 70/54. She was given 3 L of IV fluids and her blood pressure has recovered to low 100 systolic. She has noted some chills at home, she denies fever, denies dysuria. She is on multiple potentially sedating medications and also on multiple blood pressure medications including propranolol and lisinopril. 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 Parkinson disease G20 Hypertension I10 Lupus L93.0 Sleep apnea G47.30 H/O: hysterectomy Z98.890, Z90.710 Allergies indomethacin [From Indocin] Allergy (Verified 10/02/18 13:01) Rash indomethacin sodium [From Indocin] Allergy (Verified 10/02/18 13:01) Rash Penicillins Allergy (Verified 10/02/18 13:01) Rash clarithromycin [From Biaxin] Adverse Reaction (Verified 10/02/18 13:01) Diarrhea Home Medications: Ambulatory Orders Medication Instructions Recorded Rasagiline Mesylate [Azilect] 1 mg PO DAILY 03/17/13 Nuedexta 20/10 1 tab PO DAILY 03/18/13 Carbidopa/Levodopa [Sinemet Cr 1.5 tab PO BID 01/15/15 25-100 Tablet] morphine SR tablet [Ms Contin] 15 mg PO BID 01/15/15 Carbidopa/Levodopa/Entacapone 1 ea PO BID 05/21/16 [Stalevo 150 Tablet] Ondansetron [Zofran Odt] 4 mg PO Q8H PRN PRN #10 tablet 11/15/17 Clonazepam 1 mg PO QHS 03/04/19 Dulaglutide [Trulicity] 0.75 mg SQ SA 03/04/19 Escitalopram Oxalate [Lexapro] 10 mg PO DAILY 03/04/19 Esomeprazole Mag Trihydrate 40 mg PO DAILY 03/04/19 [Nexium] Gabapentin 900 mg PO BID 03/04/19 Lisinopril 5 mg PO DAILY 03/04/19 Glimepiride 4 mg PO DAILY 03/18/19 Metformin HCl 1,000 mg PO BID 03/18/19 Oxycodone HCl/Acetaminophen 1 tab PO BID 03/18/19 [Percocet 5-325] Propranolol HCl 60 mg PO BID 03/18/19 Tizanidine HCl 4 mg PO BID 03/18/19 Surgical History: Surgical History (Last Reviewed 03/04/19 @ 06:20 by Mason Stone MD) History of cholecystectomy Z90.49 History of knee surgery Z98.890 History of back surgery Z98.890 x3 S/P cholecystectomy Z90.49 S/P left knee surgery Z98.890 Status post arthroscopy of hip Z98.890 left 02/05/17 Status post carpal tunnel release Z98.890 right and left 10/18/11 Surgical History: cholecystectomy, hysterectomy Psychiatric History: No pertinent psych hx 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 Denies: Fever, Weight Change HEENT: Denies: Head Aches, Sinus Congestion, Sinus Drainage Cardiovascular: Reports: Light Headedness. Denies: Chest Pain, Edema, Palpitations, Syncope Respiratory: Denies: Cough, Shortness of Breath, Shortness of breath at rest, Sputum production Gastrointestinal: Denies: Abdominal Pain, Diarrhea, Nausea, Vomiting Genitourinary: Denies: Dysuria Musculoskeletal: Denies: Joint Pain, Joint Tenderness Skin: Denies: Rash, Wounds Neurological: Denies: Numbness, Tingling, Focal weakness Psychiatric: Denies: Anxiety, Depression, Homicidal Ideations, Suicidal Ideations Hematologic/ Lymphatic: Denies: Easy Bruising, Easy Bleeding VTE Information - Inpt Only VTE Present on Admission: No VTE Mechan Device Prophylaxis: None VTE Pharm Prophylaxis ordered?: Yes Patient Problems: Active and Suspected Problems (Last Reviewed 03/04/19 @ 06:29 by Mason Stone MD) Hypotension (Acute) - Physical Exam General: Alert, Oriented x3, Cooperative HEENT: Atraumatic, PERRLA, EOMI, Normocephalic Neck: Supple, No JVD, Negative Carotid Bruits Lungs: Clear to auscultation, Normal air movement Cardiovascular: Regular rate, No murmurs Abdomen: Bowel Sounds Present, Soft, Non Tender Extremities: No edema, Capillary Refill Less than 3 Seconds Skin: No rashes, No breakdown Musculoskeletal: No Tenderness to Palpation of Joints or Extremities Neurological: Cranial nerves II-XII grossly intact Psych/Mental Status: Normal Affect, Appropriate, Alert and oriented to time, place, person, mood and affect Vital Signs Temp Pulse Resp BP Pulse Ox 98.1 F 81 11 L 101/70 98 03/18/19 17:16 03/18/19 17:12 03/18/19 17:12 03/18/19 17:12 03/18/19 17:12 Oxygen Delivery Method Room Air Weight: 185 lb 10.067 oz Body Mass Index (BMI) 29.0 Finger Stick Blood Glucose 126 Intake and Output for Last 24 Hours 03/16/19 03/17/19 03/18/19 23:59 23:59 23:59 Intake Total 582.75 / 582.75 Balance 582.75 / 582.75 Laboratory Tests Past 24 Hrs 03/18/19 03/18/19 03/18/19 15:40 15:40 15:40 WBC 12.7 H RBC 4.43 Hgb 13.4 Hct 42.3 MCV 95.5 MCH 30.2 MCHC 31.7 L RDW Std Deviation 45.3 H RDW Coeff of Arben 13.0 Plt Count 301 MPV 11.4 Immature Gran % (Auto) 0.500 Neut % (Auto) 56.7 Lymph % (Auto) 32.5 [place] % (Auto) 8.0 Eos % (Auto) 2.0 Baso % (Auto) 0.3 Absolute Neuts (auto) 7.2 Absolute Lymphs (auto) 4.12 Nucleated RBC % 0 PT 13.6 INR 1.1 APTT 31.5 Sodium 135 L Potassium 3.9 Chloride 100 Carbon Dioxide 28.0 Anion Gap 7 BUN 15 Creatinine 1.86 H Estim Creat Clear Calc 32.45 Est GFR (MDRD) Af Amer 36 L Est GFR (MDRD) Non-Af 30 L BUN/Creatinine Ratio 8.1 L Glucose 101 Lactic Acid Calcium 9.5 Total Bilirubin 0.90 AST 13 L ALT 8 L Alkaline Phosphatase 80 Total Creatine Kinase 38 Total Protein 8.2 Albumin 4.2 Globulin 4.0 Albumin/Globulin Ratio 1.0 TSH 4.90 H Cortisol Urine Color Urine Clarity Urine pH Ur Specific [place] Urine Protein Urine Glucose (UA) Urine Ketones Urine Occult Blood Urine Nitrite Urine Bilirubin Urine Urobilinogen Ur Leukocyte Esterase Urine RBC Urine WBC Ur Squamous Epith Cells Urine Bacteria Urine Mucus 03/18/19 03/18/19 03/18/19 15:40 16:25 16:55 WBC RBC Hgb Hct MCV MCH MCHC RDW Std Deviation RDW Coeff of Arben Plt Count MPV Immature Gran % (Auto) Neut % (Auto) Lymph % (Auto) [place] % (Auto) Eos % (Auto) Baso % (Auto) Absolute Neuts (auto) Absolute Lymphs (auto) Nucleated RBC % PT INR APTT Sodium Potassium Chloride Carbon Dioxide Anion Gap BUN Creatinine Estim Creat Clear Calc Est GFR (MDRD) Af Amer Est GFR (MDRD) Non-Af BUN/Creatinine Ratio Glucose Lactic Acid 2.6 H Calcium Total Bilirubin AST ALT Alkaline Phosphatase Total Creatine Kinase Total Protein Albumin Globulin Albumin/Globulin Ratio TSH Cortisol 5.20 Urine Color Pending Urine Clarity Pending Urine pH Pending Ur Specific [place] Pending Urine Protein Pending Urine Glucose (UA) Pending Urine Ketones Pending Urine Occult Blood Pending Urine Nitrite Pending Urine Bilirubin Pending Urine Urobilinogen Pending Ur Leukocyte Esterase Pending Urine RBC Pending Urine WBC Pending Ur Squamous Epith Cells Pending Urine Bacteria Pending Urine Mucus Pending POC Glucose 03/18/19 03/18/19 17:37 14:58 POC Glucose 52 L 126 H Assessment/Plan All Active Problems (Last Reviewed 03/04/19 @ 06:29 by Mason Stone MD) Hypotension (Acute) DEBORA (acute kidney injury) (Acute) Septic shock (Acute) 1. Hypotension and acute kidney injury-blood pressures improved with 3 L normal saline in the emergency room. We will continue maintenance fluids overnight. Hold blood pressure medications. Probably some degree of polypharmacy issues on multiple sedating medications including Klonopin, gabapentin, morphine, oxycodone, and tizanidine. She likely has some degree of autonomic dysfunction with her underlying parkinsons. -Leukocytosis, lactic acidosis, no fever. UA is pending - has urinary retention and is currently cath'd. -cortisol normal. TSH elevated, check t4. 2. Parkinsons - continue home meds: azilect, neudexta, sinemet, stalevo 3. Unspecified arrhythmia - takes propranolol for this. 4. Anx/depression - minimize klonopin use. continue lexapro 5. HTN - held orals as above. 6. Chronic pain - Lupus - tizanidine, MS contin, gabapentin, percocet 7. DMt2 - SSI DVT ppx: heparin DC planning: PTOT. This patient was seen by Sudhir Alvarenga PA-C under the supervision of Dr. Brumfield.
[2019-03-18 17:53] LABS: Color, Urine Amber (Yellow); Glucose, Dipstick Normal (Normal); Ketone-Dipstick 15 mg/dl (Negative); Leukocyte Esterase-Dipstick 25 /ul (Negative); Nitrite-Dipstick Negative (Negative); Occult Blood-Urine 10 /ul (Negative); Protein-Dipstick 30 mg/dl (Negative); Specific Gravity, Urine 1.025 (1.002-1.030); Urine Clarity Sl. Cloudy (Clear); Urine Urobilinogen Normal (Normal)
[2019-03-18 17:57] LABS: Urine Bilirubin Dipstick 3 mg/dL (Negative)
[2019-03-18 18:00] LABS: Squamous Epithelial Cells - UA 5-10 SEEN /hpf (5-10)
[2019-03-18 18:01] LABS: Hyaline Cast 10-25 SEEN /lpf (0-5); Mucous, Urine 2+ /hpf (<or=2+)
[2019-03-18] MEDS: 0.9% Normal Saline 1,000 ML 125 ML IV (18:30)
[2019-03-18 19:44] LABS: Reflex Lactate? Y
[2019-03-18 20:45] LABS: Lactic Acid 2.6 mmol/L (0.4-2.0)
[2019-03-18] MEDS: Heparin Injection (Vial) 5,000 UNIT/ML VIAL 5000 UNIT SC (23:15)
[2019-03-18] MEDS: Propranolol 10 MG Tablet 20 MG PO (23:15)
[2019-03-18] MEDS: morphine SR 15 MG Tablet PO (23:16)
[2019-03-18] MEDS: clonazePAM 1 MG Tablet PO (23:16)
[2019-03-18] MEDS: tiZANidine HCl 2 MG Tablet 4 MG PO (23:17)
[2019-03-19] VITALS (10 sets, daily range): BP systolic 95–106; BP diastolic 62–69; PULSE 81–91; RESP 13–16; TEMP 36.6–36.9; O2SAT 94–100
[2019-03-19 02:20] LABS: Bedside Glucose 144 mg/dL (70-110)
[2019-03-19] MEDS: 0.9% Normal Saline 1,000 ML 125 ML IV ×3 (02:23→18:45)
[2019-03-19] MEDS: Propranolol 10 MG Tablet 20 MG PO ×2 (05:59→21:03)
[2019-03-19 06:56] LABS: Bedside Glucose 72 mg/dL (70-110)
[2019-03-19 07:54] LABS: Absolute Neutrophil Count 4.1 X10^3/uL (2.0-7.7); Basophil# 0.02 X10^3/uL; Basophil% 0.3 % (0-1); Eosinophil# 0.13 X10^3/uL; Eosinophils% 1.6 % (0-5); Hematocrit 35.2 % (37-47); Hemoglobin 11.5 g/dL (12.0-15.0); Lymphocyte % 39.2 % (19-41); Mean Corp Hgb Conc 32.7 g/dL (32-36); Mean Corpuscular Hgb 30.7 pg (27.0-32.0); Mean Corpuscular Volume 94.1 fL (81-99); Mean Platelet Vol. 11.5 fl (6.2-12.0); Monocyte# 0.51 X10^3/uL; Monocyte% 6.4 % (0-10); NRBC Flagged by Analyzer 0 % (0-5); Neutrophil # 4.13 X10^3/uL (2.7-7.7); Neutrophil % 52.2 % (47-70); Platelet Count 203 K/mm3 (150-450); RBC Distribution Width CV 12.3 % (11.6-14.6); RBC Distribution Width SD 42.5 fl (35.1-43.9); Red Blood Count 3.74 M/mm3 (4.2-5.4); White Blood Count 7.9 K/mm3 (4.4-11.0)
[2019-03-19 08:34] LABS: Anion Gap 5 (5-15); BUN 13 mg/dL (7-18); BUN/Creat Ratio 11.8 RATIO (10-20); Calcium,Total 8.5 mg/dL (8.5-10.1); Chloride 106 mmol/L (98-107); EST Glomerular Filtration Rate 54 mL/min (>60); Est Glom Filt Rate - Afr Amer 66 mL/min (>60); Estimated Creatinine Clearance 52.82 ml/min; Glucose 101 mg/dL (74-106); Potassium 3.5 mmol/L (3.5-5.1); Sodium Level 139 mmol/L (136-145)
[2019-03-19] MEDS: tiZANidine HCl 2 MG Tablet 4 MG PO ×2 (08:46→21:03)
[2019-03-19] MEDS: Pantoprazole Sodium 40 MG Tablet PO (08:46)
[2019-03-19] MEDS: metFORMIN HCl 1,000 MG Tablet 1000 MG PO (08:46)
[2019-03-19] MEDS: Gabapentin 300 MG Capsule 900 MG PO ×2 (08:46→16:41)
[2019-03-19] MEDS: Glimepiride 4 MG Tablet PO (08:46)
[2019-03-19] MEDS: Escitalopram Oxalate 10 MG Tablet PO (08:46)
[2019-03-19] MEDS: Heparin Injection (Vial) 5,000 UNIT/ML VIAL 5000 UNIT SC ×2 (08:47→21:03)
[2019-03-19] MEDS: morphine SR 15 MG Tablet PO ×2 (08:53→21:03)
[2019-03-19 12:35] LABS: Bedside Glucose 111 mg/dL (70-110)
--- NOTE | 2019-03-19 15:55 | CASEMGMT ---
Readmission chart review: Pt was initially admitted 03/04-03/06/19 for septic shock and per f/u phone calls, pt's daughter felt that pt was discharged too soon. Pt was supposed to be discharged with a WW but script was not given to pt at discharge. Dr. Randhawa's office did get pt set up with a WW and pt has it at bedside. Pt came back to ED on 03/18/19 for inabilitiy to urinate and was admitted for hypotension/DEBORA. This RN CM to room and pt states unsure of discharge plan at this time. This RN CM advised pt that she did very well with therapy today and pt did agree and states she was ready 'walk on out of here.' Pt/daughter aware that CM will follow and that there will be a CM/SW here on friday, voice understanding. Daughter does ask what should she do if she needs to talk to CM/SW and this RN CM advised her to let pt's RN know, voices understanding. Pt/daughter voice no further questions/concerns/needs at this time. CM to follow for any further discharge planning/needs. [place] RN CM
--- NOTE | 2019-03-19 16:52 | PN_ITS ---
Patient Problems: Active and Suspected Problems (Last Reviewed 03/04/19 @ 06:29 by Mason Stone MD) Hypotension (Acute) Subjective: Patient was seen and examined. Denied any new complaints. She feels much better and denies any fever or chills. Objective: Physical Exam General: Alert, Oriented x3, Cooperative HEENT: Atraumatic, PERRLA, EOMI, Normocephalic Neck: Supple, No JVD, Negative Carotid Bruits Lungs: Clear to auscultation, Normal air movement Cardiovascular: Regular rate, No murmurs Abdomen: Bowel Sounds Present, Soft, Non Tender Extremities: No edema, Capillary Refill Less than 3 Seconds Skin: No rashes, No breakdown Musculoskeletal: No Tenderness to Palpation of Joints or Extremities Neurological: Cranial nerves II-XII grossly intact Psych/Mental Status: Normal Affect, Appropriate, Alert and oriented to time, place, person, mood and affect Vitals/I&O's: Vital Signs Temp Pulse Resp BP Pulse Ox 98.3 F 81 16 98/67 97 03/19/19 16:39 03/19/19 16:39 03/19/19 16:39 03/19/19 16:39 03/19/19 16:39 Oxygen Delivery Method Room Air Weight: 86.636 kg Body Mass Index (BMI) 29.9 Finger Stick Blood Glucose 126 Intake and Output for Last 24 Hours 03/17/19 03/18/19 03/19/19 23:59 23:59 23:59 Intake Total 3414.75 / 3414.75 2300.84 / 2300.84 Output Total 1525 / 1525 3100 / 3100 Balance 1889.75 / 1889.75 -799.16 / -799.16 Laboratory Results 03/18/19 16:25: Cortisol 5.20 03/18/19 16:55: Urine Color Helen, Urine Clarity Sl. Cloudy, Urine pH 5.0, Ur Specific [place] 1.025, Urine Protein 30 H, Urine Glucose (UA) Normal, Urine Ketones 15 H, Urine Occult Blood 10 H, Urine Nitrite Negative, Urine Bilirubin 3 H, Urine Urobilinogen Normal, Ur Leukocyte Esterase 25 H, Urine RBC 0 SEEN, Urine WBC 0 SEEN, Ur Squamous Epith Cells 5-10 SEEN, Urine Bacteria 0 SEEN, Hyaline Casts 10-25 SEEN, Urine Mucus 2+ 03/18/19 17:37: POC Glucose 52 L 03/18/19 20:02: Lactic Acid 2.6 H 03/18/19 23:08: POC Glucose 144 H 03/19/19 06:39: POC Glucose 72 03/19/19 07:35: Sodium 139, Potassium 3.5, Chloride 106, Carbon Dioxide 28.0, Anion Gap 5, BUN 13, Creatinine 1.10 H, Estim Creat Clear Calc 52.82, Est GFR (MDRD) Af Amer 66, Est GFR (MDRD) Non-Af 54 L, BUN/Creatinine Ratio 11.8, Glucose 101, Calcium 8.5 03/19/19 07:35: WBC 7.9, RBC 3.74 L, Hgb 11.5 L, Hct 35.2 L, MCV 94.1, MCH 30.7, MCHC 32.7, RDW Std Deviation 42.5, RDW Coeff of Arben 12.3, Plt Count 203, MPV 11.5, Immature Gran % (Auto) 0.300, Neut % (Auto) 52.2, Lymph % (Auto) 39.2, [place] % (Auto) 6.4, Eos % (Auto) 1.6, Baso % (Auto) 0.3, Absolute Neuts (auto) 4.1, Absolute Lymphs (auto) 3.10, Nucleated RBC % 0 03/19/19 12:08: POC Glucose 111 H Current Medications Acetaminophen (Tylenol) 650 mg PO Q6H PRN PRN PRN Reason: Mild pain 1-3/Temp > 100.7 F Carbidopa/Levodopa (Sinemet) 1 tablet PO TIDAC [facility] Carbidopa/Levodopa/Entacapone (Stalevo 150) 1 tablet PO BID [facility] Last Admin: 03/19/19 08:46 Dose: 1 tablet Documented by: Clonazepam (Klonopin) 1 mg PO QHS [facility] Last Admin: 03/18/19 23:16 Dose: 1 mg Documented by: Dextrose (D50w Syringe) 0 gm IV X1 PRN; Protocol PRN Reason: Hypoglycemia Escitalopram Oxalate (Lexapro) 10 mg PO DAILY [facility] Last Admin: 03/19/19 08:46 Dose: 10 mg Documented by: [facility] Admin: 03/19/19 16:41 Dose: 900 mg Documented by: [facility] Last Admin: 03/19/19 08:46 Dose: 4 mg Documented by: Glucagon () 1 mg IM .X1 PRN PRN Reason: Hypoglycemia Heparin Sodium (Porcine) (Heparin Na) 5,000 unit SC Q12 [facility] Last Admin: 03/19/19 08:47 Dose: 5,000 unit Documented by: Sodium Chloride () 1,000 mls @ 100 mls/hr IV .Q10H [facility] Last Admin: 03/19/19 10:04 Dose: 125 mls/hr Documented by: Insulin Human Lispro (Humalog Kwikpen (Bkc)) 0 unit SC ACHS [facility]; Protocol Last Admin: 03/19/19 16:39 Dose: Not Given Documented by: Met[facility] Last Admin: 03/19/19 08:46 Dose: 1,000 mg Documented by: Morphine Sulfate (Ms Contin) 15 mg PO BID [facility] Last Admin: 03/19/19 08:53 Dose: 15 mg Documented by: Ondansetron HCl (Zofran Odt) 4 mg PO Q8H PRN PRN PRN Reason: NAUSEA Oxycodone HCl (Oxyir) 10 mg PO Q6H PRN PRN PRN Reason: Moderate Pain (4-6/10) Pantoprazole Sodium (Protonix) 40 mg PO DAILY [facility] Last Admin: 03/19/19 08:46 Dose: 40 mg Documented by: Propranolol HCl (Inderal) 20 mg PO TID [facility] Last Admin: 03/19/19 13:56 Dose: Not Given Documented by: Rasagiline (Azilect) 1 mg PO DAILY [facility] Last Admin: 03/19/19 08:54 Dose: 1 mg Documented by: Sodium Chloride () 5 - 15 ml IV UD PRN PRN Reason: SALINE FLUSH Tizanidine HCl (Zanaflex) 4 mg PO BID [facility] Last Admin: 03/19/19 08:46 Dose: 4 mg Documented by: Medical Necessity - Tobacco Use Smoking Status: Never smoker Tobacco Use: Non-smoker Assessment/Plan All Active Problems (Last Reviewed 03/04/19 @ 06:29 by Mason Stone MD) Hypotension (Acute) DEBORA (acute kidney injury) (Acute) Septic shock (Acute) 1. Hypotension due to dehydration, patient admits to history of diarrhea as well as being on blood pressure medications as well as other medications that can drop blood pressure. Continue on IV fluids, continue to monitor vitals 2. Acute kidney injury, prerenal secondary to dehydration Creatinine is improving, currently 1.10 from 1.86, Continue on IV fluids 3. Elevated lactic acid due to hypotension, will continue to monitor 4. Parkinson's disease, on Sinemet, rasagiline 5. Anxiety/depression, on Klonopin, Lexapro 6. Hypertension, controlled, continue propranolol 7. Chronic pain, on MS Contin, oxycodone, gabapentin 8. Type II DM, blood glucose fairly controlled, on metformin and glimepiride Hold metformin for now, continue on glimepiride, blood glucose checks with ISS. 9. DVT prophylaxis with heparin subcu Code Visit Inpatient E&M: 43655 Subs Hosp L2
--- NOTE | 2019-03-19 16:55 | CHAPLAIN ---
Type of Pastoral Visit _x__ Initial Visit ___ Follow-up Visit ___ On-call Visit ___ General Patient Visit ___ Spiritual Assessment ___ Family Conference ___ Bereavement ___ Rapid Response ___ Code Blue ___ Other (describe below) Pastoral Care Referral From _x__ Patient ___ Family ___ Nurse ___ Physician ___ Diving Instructor ___ Patternmaker Sample ___ Other (describe below) Sacrament/Intervention _x__ Active listening ___ Anointing ___ Spiritism ___ Bereavement ___ Communion _x__ Rose exploration ___ ___ Life review _x__ Prayer ___ Reconciliation ___ Sacrament of Sick _x__ Supportive presence ___ Wedding ___ Other (describe below) Pastoral Comments
[2019-03-19 17:51] LABS: Bedside Glucose 125 mg/dL (70-110)
[2019-03-19] MEDS: Carbidopa/Levodopa 25/100 Tablet PO (18:45)
[2019-03-19] MEDS: clonazePAM 1 MG Tablet PO (21:03)
[2019-03-20 02:26] LABS: Bedside Glucose 83 mg/dL (70-110)
[2019-03-20 03:00] VITALS: BP 104/75; PULSE 83; PULSE 87; RESP 16; TEMP 36.8; O2SAT 95
[2019-03-20] MEDS: 0.9% Normal Saline 1,000 ML 100 ML IV (03:23)
[2019-03-20 06:50] VITALS: BP 110/69; PULSE 79; RESP 16; TEMP 37.1; O2SAT 97
[2019-03-20] MEDS: Propranolol 10 MG Tablet 20 MG PO (06:56)
[2019-03-20] MEDS: Carbidopa/Levodopa 25/100 Tablet PO ×2 (06:56→11:50)
[2019-03-20 07:00] VITALS: PULSE 73
[2019-03-20 07:01] LABS: Bedside Glucose 68 mg/dL (70-110)
[2019-03-20 09:39] LABS: Absolute Lymphocyte Count 2.09 X10^3/uL (0.83-4.51); Absolute Neutrophil Count 3.3 X10^3/uL (2.0-7.7); Basophil# 0.02 X10^3/uL; Basophil% 0.3 % (0-1); Eosinophil# 0.25 X10^3/uL; Hematocrit 35.1 % (37-47); Hemoglobin 11.5 g/dL (12.0-15.0); Lymphocyte # 2.09 X10^3/ul (4.0); Lymphocyte % 33.7 % (19-41); Mean Corp Hgb Conc 32.8 g/dL (32-36); Mean Corpuscular Hgb 30.4 pg (27.0-32.0); Mean Corpuscular Volume 92.9 fL (81-99); Mean Platelet Vol. 12.2 fl (6.2-12.0); Monocyte% 8.1 % (0-10); NRBC Flagged by Analyzer 0 % (0-5); Neutrophil # 3.33 X10^3/uL (2.7-7.7); Neutrophil % 53.7 % (47-70); Platelet Count 183 K/mm3 (150-450); RBC Distribution Width CV 12.5 % (11.6-14.6); RBC Distribution Width SD 42.2 fl (35.1-43.9); Red Blood Count 3.78 M/mm3 (4.2-5.4); White Blood Count 6.2 K/mm3 (4.4-11.0)
[2019-03-20] MEDS: Pantoprazole Sodium 40 MG Tablet PO (09:42)
[2019-03-20] MEDS: tiZANidine HCl 2 MG Tablet 4 MG PO (09:46)
[2019-03-20] MEDS: Glimepiride 4 MG Tablet PO (09:46)
[2019-03-20] MEDS: Escitalopram Oxalate 10 MG Tablet PO (09:46)
[2019-03-20] MEDS: Heparin Injection (Vial) 5,000 UNIT/ML VIAL 5000 UNIT SC (09:47)
[2019-03-20] MEDS: Gabapentin 300 MG Capsule 900 MG PO (09:51)
[2019-03-20 09:53] LABS: Anion Gap 5 (5-15); BUN 9 mg/dL (7-18); BUN/Creat Ratio 11.9 RATIO (10-20); Calcium,Total 8.6 mg/dL (8.5-10.1); Chloride 107 mmol/L (98-107); Creatinine, Serum 0.76 mg/dL (0.55-1.02); EST Glomerular Filtration Rate 84 mL/min (>60); Est Glom Filt Rate - Afr Amer 101 mL/min (>60); Estimated Creatinine Clearance 76.45 ml/min; Glucose 79 mg/dL (74-106); Potassium 3.8 mmol/L (3.5-5.1); Sodium Level 141 mmol/L (136-145)
--- NOTE | 2019-03-20 09:55 | NURSING ---
Pt alert, oriented, answers questions and follows commands-no distress, denies any pain-refused MS Contin this am. Pt ate majority of her breakfast tray and reports she normally takes her Amaryl in am at home with morning meal.
--- NOTE | 2019-03-20 10:34 | DCINST_ITS ---
- Discharge Diagnoses Current Active Problems: Current Active and Chronic Problems (Last Reviewed 03/04/19 @ 06:29 by Mason Stone MD) Hypotension (Acute) Reason(s) for Visit for Discharge Instructions: Hypotension, dehydration You will use the following diet at home:: Calorie/Carbohydrate Controlled (specify 1200, 1400, etc), Cardiac Your food should be the consistency of: Regular Your liquids should be the consistency of: Regular/Thin Discharge Activity: Return to Normal Activity Additional Instructions: Take note of changes to your medications. Continue to hydrate yourself. Follow-up with primary care doctor within 1 to 2 weeks for repeat blood work as well as to show a log of his blood pressure. You will be given a prescription for blood pressure meter. Measure blood pressure every morning. Allergies/Adverse Reactions: Allergies indomethacin [From Indocin] Allergy (Verified 10/02/18 13:01) Rash indomethacin sodium [From Indocin] Allergy (Verified 10/02/18 13:01) Rash Penicillins Allergy (Verified 10/02/18 13:01) Rash clarithromycin [From Biaxin] Adverse Reaction (Verified 10/02/18 13:01) Diarrhea Medications to take at Discharge Rasagiline Mesylate [Azilect] 1 mg PO DAILY 03/17/13 Nuedexta 20/10 1 tab PO DAILY 03/18/13 Carbidopa/Levodopa [Sinemet Cr 25-100 Tablet] 1.5 tab PO BID 01/15/15 morphine SR tablet [Ms Contin] 15 mg PO BID 01/15/15 Carbidopa/Levodopa/Entacapone [Stalevo 150 Tablet] 1 ea PO BID 05/21/16 Ondansetron [Zofran Odt] 4 mg PO Q8H PRN PRN #10 tablet 11/15/17 Clonazepam 1 mg PO QHS 03/04/19 Dulaglutide [Trulicity] 0.75 mg SQ SA 03/04/19 Escitalopram Oxalate [Lexapro] 10 mg PO DAILY 03/04/19 Esomeprazole Mag Trihydrate [Nexium] 40 mg PO DAILY 03/04/19 Gabapentin 900 mg PO BID 03/04/19 Glimepiride 4 mg PO DAILY 03/18/19 Metformin HCl 1,000 mg PO BID 03/18/19 Oxycodone HCl/Acetaminophen [Percocet 5-325] 1 tab PO BID 03/18/19 Propranolol HCl 20 mg PO BID #60 tab 03/20/19 Tizanidine HCl 2 mg PO BID 30 Days #60 cap 03/20/19 The following prescriptions were given: Propranolol HCl 20 mg PO BID #60 tab Transmission Status: Pending to [facility] Tizanidine HCl 2 mg PO BID 30 Days #60 cap Transmission Status: Pending to [facility] Primary Care Physician: Clemente Randhawa MD [Primary Care Provider] - Please follow up with your Primary Care Physician in: within 1-2 weeks Test Results: Test results from this visit will be discussed in further detail at your follow- up appointment, if applicable. Proposed Discharge Date: 03/20/19
--- NOTE | 2019-03-20 10:37 | DS.PCM_ITS ---
Discharge Date and Diagnosis - Problem List Patient Problems: Active and Suspected Problems (Last Reviewed 03/04/19 @ 06:29 by Mason Stone MD) Hypotension (Acute) Date of Admission: 03/18/19 Date of Discharge: 03/20/19 - Primary Discharge Diagnosis Active and Suspected Problems (Last Reviewed 03/04/19 @ 06:29 by Mason Stone MD) Hypotension (Acute) Lactic acidosis Acute kidney injury, pre-renal Polypharmacy - Secondary Discharge Diagnosis Chronic Problems (Last Reviewed 03/04/19 @ 06:29 by Mason Stone MD) Esophageal stricture (Chronic) Irritable bowel syndrome (IBS) (Chronic) Osteoarthritis of lumbosacral spine (Chronic) Chronic low back pain Multiple surgeries Pain management Gastroparesis (Chronic) Parkinsons disease (Chronic) Diabetes mellitus (Chronic) Hospital Course and Treatment Imaging Results: Clinical Impression(s) from Imaging Studies Brain CT 03/18/19 15:26 IMPRESSION: No acute intracranial or calvarial abnormality. There is no interval change. Electronically Signed: Lefty Nichole DO at 16:49 EDT Tel [phone], Service support , Chest X-Ray 03/18/19 15:28 IMPRESSION: No acute abnormality is seen. Electronically Signed: Nolberto Dotson, at 15:52 EDT , Service support , None Operations: None Procedures: None Summary of Care Provided: The patient is a 58 year old F with PMHx of Parkinson's disease, Type 2 DM, who was recently admitted and treated for septic shock of unknown etiology in with complaints of lightheadedness, unsteadiness and nausea. Her work-up in the emergency room showed a BC count of 12.7, creatinine elevated at 1.86. Her creatinine at discharge was 0.8F. Her UA was unremarkable. Chest x-ray was also unremarkable. The patient in the ED was 70/52 but responded to IV fluids. Patient was admitted and started on IV fluids. Changes were made to her medications with her lisinopril held. She also had her metformin withheld, tizanidine was decreased, propranolol was also decreased. Blood pressures remained stable and her acute kidney injury was resolved. She will follow-up with your primary care doctor within 2 weeks. Patient Problems: Active and Suspected Problems (Last Reviewed 03/04/19 @ 06:29 by Mason Stone MD) Hypotension (Acute) Subjective: On the day of discharge, patient was seen and examined. She denied any complains. No dizziness, palpitations. Objective: Physical Exam General: Alert, Oriented x3, Cooperative HEENT: Atraumatic, PERRLA, EOMI, Normocephalic Neck: Supple, No JVD, Negative Carotid Bruits Lungs: Clear to auscultation, Normal air movement Cardiovascular: Regular rate, No murmurs Abdomen: Bowel Sounds Present, Soft, Non Tender Extremities: No edema, Capillary Refill Less than 3 Seconds Skin: No rashes, No breakdown Musculoskeletal: No Tenderness to Palpation of Joints or Extremities Neurological: Cranial nerves II-XII grossly intact Psych/Mental Status: Normal Affect, Appropriate, Alert and oriented to time, place, person, mood and affect - Physical Exam Vital Signs Temp Pulse Resp BP Pulse Ox 98.8 F 73 16 110/69 97 03/20/19 06:50 03/20/19 07:00 03/20/19 06:50 03/20/19 06:50 03/20/19 06:50 Oxygen Delivery Method Room Air Weight: 86.636 kg Body Mass Index (BMI) 29.9 Finger Stick Blood Glucose 126 Intake and Output for Last 24 Hours 03/18/19 03/19/19 03/20/19 23:59 23:59 23:59 Intake Total 3414.75 / 3414.75 3540.84 / 3780.84 1340 / 1340 Output Total 1525 / 1525 4000 / 5425 2225 / 2225 Balance 1889.75 / 1889.75 -459.16 / -1644.16 -885 / -885 Microbiology Past 72 Hours 03/18/19 16:55 Urine Culture - Preliminary Urine Catheter - Simpson Culture exhibits no growth. Laboratory Tests Past 24 Hrs 03/20/19 03/20/19 07:54 07:54 WBC 6.2 RBC 3.78 L Hgb 11.5 L Hct 35.1 L MCV 92.9 MCH 30.4 MCHC 32.8 RDW Std Deviation 42.2 RDW Coeff of Arben 12.5 Plt Count 183 MPV 12.2 H Immature Gran % (Auto) 0.200 Neut % (Auto) 53.7 Lymph % (Auto) 33.7 [place] % (Auto) 8.1 Eos % (Auto) 4.0 Baso % (Auto) 0.3 Absolute Neuts (auto) 3.3 Absolute Lymphs (auto) 2.09 Nucleated RBC % 0 Sodium 141 Potassium 3.8 Chloride 107 Carbon Dioxide 29.0 Anion Gap 5 BUN 9 Creatinine 0.76 Estim Creat Clear Calc 76.45 Est GFR (MDRD) Af Amer 101 Est GFR (MDRD) Non-Af 84 BUN/Creatinine Ratio 11.9 Glucose 79 Calcium 8.6 POC Glucose 03/20/19 03/19/19 03/19/19 06:49 20:57 16:34 POC Glucose 68 L 83 125 H 03/19/19 12:08 POC Glucose 111 H Discharge Diet: Low fat/ Low Cholesterol, 2000 mg Sodium Diet Discharge Activity: Return to Normal Activity Home Medications: Medications to take at Discharge Rasagiline Mesylate [Azilect] 1 mg PO DAILY 03/17/13 Nuedexta 20/ 1 tab PO DAILY 03/18/13 Carbidopa/Levodopa [Sinemet Cr 25-100 Tablet] 1.5 tab PO BID 01/15/15 morphine SR tablet [Ms Contin] 15 mg PO BID 01/15/15 Carbidopa/Levodopa/Entacapone [Stalevo 150 Tablet] 1 ea PO BID 05/21/16 Ondansetron [Zofran Odt] 4 mg PO Q8H PRN PRN #10 tablet 11/15/17 Clonazepam 1 mg PO QHS 03/04/19 Dulaglutide [Trulicity] 0.75 mg SQ SA 03/04/19 Escitalopram Oxalate [Lexapro] 10 mg PO DAILY 03/04/19 Esomeprazole Mag Trihydrate [Nexium] 40 mg PO DAILY 03/04/19 Gabapentin 900 mg PO BID 03/04/19 Glimepiride 4 mg PO DAILY 03/18/19 Metformin HCl 1,000 mg PO BID 03/18/19 Oxycodone HCl/Acetaminophen [Percocet 5-325] 1 tab PO BID 03/18/19 Propranolol HCl 20 mg PO BID #60 tab 03/20/19 Tizanidine HCl 2 mg PO BID 30 Days #60 cap 03/20/19 Following Prescrptions Were Given to Patient: Propranolol HCl 20 mg PO BID #60 tab Transmission Status: Received by [facility] Tizanidine HCl 2 mg PO BID 30 Days #60 cap Transmission Status: Received by [facility] Primary Care Physician: Clemente Randhawa MD [Primary Care Provider] - Please follow up with your Primary Care Physician in: within 1-2 weeks Disposition: Home Minutes spent on discharge:: 40 Patient Condition:: Stable Medical Necessity - Tobacco Use Smoking Status: Never smoker Tobacco Use: Non-smoker Meaningful Use Info Meaningful Use Diagnoses (Choose all that apply): None applicable Code Visit Inpatient E&M: 34690 Disch Hosp
--- NOTE | 2019-03-20 10:49 | NURSING ---
Student from [facility] took wilkes catheter out at 1048 with this RN at bedside. Pt tolerated well. 8cc obtained from balloon.
[2019-03-20 11:41] LABS: Bedside Glucose 208 mg/dL (70-110)
[2019-03-20 12:29] LABS: Free T3 2.5 pg/mL (2.18-3.98); T4 Free Direct 1.12 ng/dL (0.76-1.46); Thyroid Stim Hormone (TSH) 1.62 uIU/mL (0.358-3.74)
[2019-03-20 12:45] VITALS: BP 107/66; BP 120/71; BP 121/74; PULSE 87; PULSE 89; PULSE 90
[2019-03-20] MEDS: Insulin Lispro 100 UNIT/ML INSULN.PEN SC (12:46)
[2019-03-20 12:50] VITALS: BP 120/71; PULSE 87; RESP 16; TEMP 36.8; O2SAT 96
[2019-03-20 12:58] VITALS: BP 121/74; PULSE 90
[2019-03-20] MEDS: Propranolol 10 MG Tablet PO (13:10)
[2019-03-20] MEDS: 0.9% NaCl Peripheral Flush Adult/Peds IV (13:20)
--- NOTE | 2019-03-23 11:15 | CASEMGMT ---
Case Management DC F/u Call: DC Date: 03/20/19 DC Diagnosis: Hypotension (Acute), Lactic acidosis, Acute kidney injury, pre-renal, Polypharmacy DC Disposition: Home Lace/Strata: 04/18 This tag writer attempted to call patient cell that was listed in demographics, no answer. Unable to verify voice recording is to patient and therefore no VM was left. Donya Huang RNCM
== END 2019-03-20 13:56 | disposition home or self-care (01) | DRG 684 ==
LOC: ED 15:47 → PCU 19:23
PROVIDERS: Admitting Provider Internal Medicine; Emergency Provider Emergency Medicine; Family Provider Family Medicine; PCP Family Medicine; Referring Provider Internal Medicine; Visit Provider Internal Medicine
DX: N17.9 Acute kidney failure, unspecified (principal); I95.9 Hypotension, unspecified; T42.4X5A Adverse effect of benzodiazepines, initial encounter; T42.6X5A Adverse effect of other antiepileptic and sedative-hypnotic drugs, initial encounter; T40.2X5A Adverse effect of other opioids, initial encounter; T42.8X5A Adverse effect of antiparkinsonism drugs and other central muscle-tone depressants, initial encounter; K22.2 Esophageal obstruction; K58.9 Irritable bowel syndrome, unspecified; M47.817 Spondylosis without myelopathy or radiculopathy, lumbosacral region; G89.29 Other chronic pain; E11.43 Type 2 diabetes mellitus with diabetic autonomic (poly)neuropathy; K31.84 Gastroparesis; G20 Parkinson's disease; F32.9 Major depressive disorder, single episode, unspecified; Z79.84 Long term (current) use of oral hypoglycemic drugs; Z79.891 Long term (current) use of opiate analgesic; Z79.899 Other long term (current) drug therapy
CPT/HCPCS: 36415; 51702; 70450; 71045; 80048; 80053; 81001; 82533; 82550; 82962; 83605; 84439; 84443; 84481; 85025; 85610; 85730; 87040; 87086; 93005; 97162; 97166; 99285; J7030; J7040; A4216

== ENCOUNTER → 2019-03-25 14:20 | Outpatient (CLI) | payer MEDICARE, MEDICAID, SELFPAY ==
[2019-03-18 17:55] VITALS: BMI 29.9
== END ==
PROVIDERS: Family Provider Family Medicine; PCP Family Medicine; Referring Provider Family Medicine; Visit Provider Family Medicine
DX: R30.0 Dysuria (principal)
CPT/HCPCS: 87086; 87088; 87186

== ENCOUNTER 2019-08-16 18:43 | Inpatient (IN) | payer MEDICARE, MEDICAID, SELFPAY ==
[2019-03-18 17:55] VITALS: BMI 29.9
[2019-08-16] VITALS (11 sets, daily range): BP systolic 78–136; BP diastolic 45–91; PULSE 68–93; RESP 12–20; TEMP 36.1–37.2; O2SAT 94–98; BMI 30.7; BMI 30.5
--- NOTE | 2019-08-16 18:57 | EKG12_ITS ---
Test Reason : DYSRHYTHMIA Blood Pressure : / mmHG Vent. Rate : 077 BPM Atrial Rate : 077 BPM P-R Int : 172 ms QRS Dur : 084 ms QT Int : 382 ms P-R-T Axes : 046 010 063 degrees QTc Int : 432 ms Normal sinus rhythm Nonspecific T wave abnormality Abnormal ECG Confirmed by ARNULFO CORBETT, DEREK ([id number]), features editor RYAN MCARTHUR ([id number]) on 08/18/2019 1:38:03 PM Referred By: EDGARDO Confirmed By:DEREK ARREDONDO MD
--- NOTE | 2019-08-16 18:59 | ED.DCSUM_ITS ---
History of Present Illness Chief Complaint: General Illness Detail of Chief Complaint: Weakness, dizzy Informant: Patient Onset: Today Narrative: Patient states she had some mild dizziness this morning. Shortly before arrival she went to stand up felt extremely weak and fell back onto her bed. She states she feels dizzy and lightheaded. She does note decreased urine output over the past several days. She denies fever or chills. She has no cough or shortness of breath. Patient was admitted to the hospital last fall with similar symptoms. She was found to have acute kidney injury with hypotension that responded to IV fluids. Patient states she feels the same at this time. There is been no recent changes to her medications. She states her blood pressure is normally 120s over 80s. - Past Medical History (1) Diabetes mellitus Status: Chronic (2) Esophageal stricture Status: Chronic (3) Gastroparesis Status: Chronic (4) Irritable bowel syndrome (IBS) Status: Chronic (5) Osteoarthritis of lumbosacral spine Status: Chronic Comment: Chronic low back pain Multiple surgeries Pain management (6) Parkinsons disease Status: Chronic Past Medical History - Allergies and Home Meds Allergies/Adverse Reactions: Allergies indomethacin [From Indocin] Allergy (Verified 08/16/19 18:46) Rash indomethacin sodium [From Indocin] Allergy (Verified 08/16/19 18:46) Rash Penicillins Allergy (Verified 08/16/19 18:46) Rash clarithromycin [From Biaxin] Adverse Reaction (Verified 08/16/19 18:46) Diarrhea Prior records reviewed: Yes Surgical History: cholecystectomy, hysterectomy Lives: Alone Smoking Status: Never smoker - Family History Maternal Family History: Family History (Last Reviewed 03/04/19 @ 06:[address] Mason Stone MD) Brother Heart disease Mother Osteoarthritis Family History: Reports: No pertinent history Review of Systems General: Denies: Chills, Fever Eyes: Denies: Visual changes - bilaterally ENT: Denies: Bilateral ear pain Cardiovascular: Denies: Chest pain Respiratory: Denies: Dyspnea Gastrointestinal: Reports: Nausea. Denies: Abdominal pain, Vomiting, Diarrhea Genitourinary: Reports: - - Decreased urine output. Denies: Dysuria Musculoskeletal: Denies: Swelling, Extremity Pain Skin: Denies: Rash Neurological: Reports: Weakness - Generalized weakness. Denies: Headache Allergy: Denies: Uticaria Physical Exam Vital Signs/Narrative: Vital Signs Temp Pulse Resp BP Pulse Ox 08/16/19 18:48 98.9 F 77 15 79/64 L 96 Inital Vital Signs reviewed: Yes General: Well nourished, Well developed Head: Normocephalic ENT: Moist mucous membranes Neck: Supple Cardiovascular: Regular rate, Regular rhythm Respiratory: No distress, CTA bilaterally Abdomen: Soft, Nontender, Normal bowel sounds Extremities: Nontender Skin: Normal color, No rash Neurological: Alert, Oriented x3, - - No focal neurologic deficits. Psychological: Normal affect Diagnostic/Tx/Re-eval Laboratory Results 08/16/19 08/16/19 08/16/19 19:12 19:12 19:12 WBC 6.7 RBC 3.71 L Hgb 12.2 Hct 36.7 L MCV 98.9 MCH 32.9 H MCHC 33.2 RDW Std Deviation 49.2 H RDW Coeff of Arben 13.7 Plt Count 209 MPV 11.3 Immature Gran % (Auto) 0.300 Neut % (Auto) 38.8 L Lymph % (Auto) 51.4 H [place] % (Auto) 7.0 Eos % (Auto) 1.9 Baso % (Auto) 0.6 Absolute Neuts (auto) 2.6 Absolute Lymphs (auto) 3.45 Nucleated RBC % 0 Sodium 137 Potassium 3.4 L Chloride 103 Carbon Dioxide 26.0 Anion Gap 8 BUN 7 Creatinine 0.92 Estim Creat Clear Calc 64.82 Est GFR (MDRD) Af Amer 81 Est GFR (MDRD) Non-Af 67 BUN/Creatinine Ratio 7.6 L Glucose 295 H Lactic Acid 6.4 H* Calcium 8.2 L Total Bilirubin 0.60 Direct Bilirubin 0.16 AST 27 ALT 34 Alkaline Phosphatase 83 Total Protein 6.5 Albumin 3.3 Globulin 3.2 Urine Color Urine Clarity Urine pH Ur Specific [place] Urine Protein Urine Glucose (UA) Urine Ketones Urine Occult Blood Urine Nitrite Urine Bilirubin Urine Urobilinogen Ur Leukocyte Esterase Urine RBC Urine WBC Ur Squamous Epith Cells Urine Bacteria Hyaline Casts Urine Mucus 08/16/19 20:28 WBC RBC Hgb Hct MCV MCH MCHC RDW Std Deviation RDW Coeff of Arben Plt Count MPV Immature Gran % (Auto) Neut % (Auto) Lymph % (Auto) [place] % (Auto) Eos % (Auto) Baso % (Auto) Absolute Neuts (auto) Absolute Lymphs (auto) Nucleated RBC % Sodium Potassium Chloride Carbon Dioxide Anion Gap BUN Creatinine Estim Creat Clear Calc Est GFR (MDRD) Af Amer Est GFR (MDRD) Non-Af BUN/Creatinine Ratio Glucose Lactic Acid Calcium Total Bilirubin Direct Bilirubin AST ALT Alkaline Phosphatase Total Protein Albumin Globulin Urine Color Yellow Urine Clarity Clear Urine pH 6.0 Ur Specific [place] 1.010 Urine Protein Negative Urine Glucose (UA) 100 H Urine Ketones 5 H Urine Occult Blood Negative Urine Nitrite Negative Urine Bilirubin Negative Urine Urobilinogen Normal Ur Leukocyte Esterase Negative Urine RBC 0 SEEN Urine WBC 0 SEEN Ur Squamous Epith Cells 0 SEEN Urine Bacteria 0 SEEN Hyaline Casts 0-5 SEEN Urine Mucus 0 SEEN - EKG Initial EKG Interpretation: Sinus Rhythm - Sinus at 77 with diffuse T wave flattening. This is unchanged when compared to prior study from March 2019. - Medical Decision Making Patient was initially given IV fluid boluses. After 2-1/2 L of IV fluid blood pressure had not significantly improved. Patient has no sign or symptoms of infection. Blood cultures have been sent. Blood work, other than lactic acid, is grossly unremarkable. Patient was given a dose of Solu-Cortef thinking she may have adrenal insufficiency. Within a half an hour of giving this medication systolic blood pressure readings are 114 and 105 on 2 consecutive readings. Patient's blood pressure has held for over an hour after receiving steroids. I spoke with trust evaluation supervisor. He agrees at this time it does not sound the patient needs emergent central line and pressors. We will repeat the lactic acid and patient will be admitted for further treatment. ED Disposition - Plan for ED Patient: Disposition: Acute Care Hospital [facility] Diagnosis: Hypotension
[2019-08-16] MEDS: 0.9% Normal Saline 1,000 ML 1000 ML IV (19:18)
[2019-08-16 19:24] LABS: Absolute Lymphocyte Count 3.45 X10^3/uL (0.83-4.51); Absolute Neutrophil Count 2.6 X10^3/uL (2.0-7.7); Basophil# 0.04 X10^3/uL; Basophil% 0.6 % (0-1); Eosinophil# 0.13 X10^3/uL; Eosinophils% 1.9 % (0-5); Hematocrit 36.7 % (37-47); Hemoglobin 12.2 g/dL (12.0-15.0); Lymphocyte # 3.45 X10^3/ul (4.0); Lymphocyte % 51.4 % (19-41); Mean Corp Hgb Conc 33.2 g/dL (32-36); Mean Corpuscular Hgb 32.9 pg (27.0-32.0); Mean Corpuscular Volume 98.9 fL (81-99); Mean Platelet Vol. 11.3 fl (6.2-12.0); Monocyte# 0.47 X10^3/uL; NRBC Flagged by Analyzer 0 % (0-5); Neutrophil % 38.8 % (47-70); Platelet Count 209 K/mm3 (150-450); RBC Distribution Width CV 13.7 % (11.6-14.6); RBC Distribution Width SD 49.2 fl (35.1-43.9); Red Blood Count 3.71 M/mm3 (4.2-5.4); White Blood Count 6.7 K/mm3 (4.4-11.0)
[2019-08-16] MEDS: 0.9% Normal Saline 1,000 ML 999 ML IV ×2 (19:30→20:17)
[2019-08-16 19:49] LABS: AST(SGOT) 27 U/L (15-37); Alanine Aminotransfer ALT/SGPT 34 U/L (13-56); Albumin, Serum 3.3 g/dL (3.2-5.0); Alkaline Phosphatase 83 U/L (45-117); Anion Gap 8 (5-15); BUN 7 mg/dL (7-18); BUN/Creat Ratio 7.6 RATIO (10-20); Bilirubin, Direct 0.16 mg/dL (0.00-0.30); Calcium,Total 8.2 mg/dL (8.5-10.1); Chloride 103 mmol/L (98-107); Creatinine, Serum 0.92 mg/dL (0.55-1.02); EST Glomerular Filtration Rate 67 mL/min (>60); Est Glom Filt Rate - Afr Amer 81 mL/min (>60); Estimated Creatinine Clearance 64.82 ml/min; Globulin 3.2 g/dL (2.2-4.2); Glucose 295 mg/dL (74-106); Potassium 3.4 mmol/L (3.5-5.1); Protein, Total 6.5 g/dL (6.4-8.2); Sodium Level 137 mmol/L (136-145)
[2019-08-16 19:56] LABS: Lactic Acid 6.4 mmol/L (0.4-1.9)
[2019-08-16 20:35] LABS: Bacteria 0 SEEN /hpf (None Seen); Mucous, Urine 0 SEEN /hpf (<or=2+); Red Blood Cells-Urine 0 SEEN /hpf (0-5); Squamous Epithelial Cells - UA 0 SEEN /hpf (5-10); White Blood Cells 0 SEEN /hpf (0-5)
[2019-08-16 20:39] LABS: Color, Urine Yellow (Yellow); Glucose, Dipstick 100 mg/dl (Normal); Ketone-Dipstick 5 mg/dl (Negative); Leukocyte Esterase-Dipstick Negative /ul (Negative); Nitrite-Dipstick Negative (Negative); Occult Blood-Urine Negative /ul (Negative); Protein-Dipstick Negative (Negative); Urine Bilirubin Dipstick Negative (Negative); Urine Clarity Clear (Clear); Urine Urobilinogen Normal (Normal)
[2019-08-16 20:47] LABS: Hyaline Cast 0-5 SEEN /lpf (0-5)
[2019-08-16] MEDS: Hydrocortisone Sod Succinate 100 MG/2 ML Vial IV (21:18)
[2019-08-16] MEDS: 0.9% Normal Saline 1,000 ML 150 ML IV (21:50)
--- NOTE | 2019-08-16 21:52 | PCM.HP.STD ---
Problem List (1) Hypotension Status: Acute (2) Hypotension Status: Acute (3) Esophageal stricture Status: Chronic (4) Irritable bowel syndrome (IBS) Status: Chronic (5) Osteoarthritis of lumbosacral spine Status: Chronic Comment: Chronic low back pain Multiple surgeries Pain management (6) Gastroparesis Status: Chronic (7) Parkinsons disease Status: Chronic (8) Diabetes mellitus Status: Chronic Qualifiers: Diabetes mellitus type: type 2 History of Present Illness Date of Admission: 08/16/19 Chief Complaint: vertigo The patient is a 58 year old F with a significant history of pseudobulbar affect; diabetes mellitus; hypertension; and Parkinson's disease who presented to the emergency department with vertigo. Further patient had weakness and nausea. She went to her daughter's room and she fell on her daughter's pain. She denied tinnitus. At the emergency department her blood pressure was severely low. Lactic acid was severely elevated. Patient received IV fluids. She did received hydrocortisone. Her blood pressure improved. Patient was admitted on 03/04/2019 and discharged on 03/06/2019 with a similar presentation. Past Medical History Past Medical History (Chronic Problems): Chronic Problems (Last Reviewed 08/16/19 @ 23:[address] Mason Stone MD) Esophageal stricture (Chronic) Irritable bowel syndrome (IBS) (Chronic) Osteoarthritis of lumbosacral spine (Chronic) Chronic low back pain Multiple surgeries Pain management Gastroparesis (Chronic) Parkinsons disease (Chronic) Diabetes mellitus (Chronic) Medical History: Medical History (Last Reviewed 08/16/19 @ 23:[address] 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 Parkinson disease G20 Hypertension I10 Lupus L93.0 Sleep apnea G47.30 Allergies indomethacin [From Indocin] Allergy (Verified 08/16/19 18:46) Rash indomethacin sodium [From Indocin] Allergy (Verified 08/16/19 18:46) Rash Penicillins Allergy (Verified 08/16/19 18:46) Rash clarithromycin [From Biaxin] Adverse Reaction (Verified 08/16/19 18:46) Diarrhea Home Medications: Ambulatory Orders Medication Instructions Recorded Rasagiline Mesylate [Azilect] 1 mg PO DAILY 03/17/13 Nuedexta 04/04 1 tab PO DAILY 03/18/13 Carbidopa/Levodopa [Sinemet Cr 1.5 tab PO BID 01/15/15 25-100 Tablet] morphine SR tablet [Ms Contin] 15 mg PO BID 01/15/15 Carbidopa/Levodopa/Entacapone 1 ea PO BID 05/21/16 [Stalevo 150 Tablet] Ondansetron [Zofran Odt] 4 mg PO Q8H PRN PRN #10 tablet 11/15/17 Clonazepam 1 mg PO QHS 03/04/19 Dulaglutide [Trulicity] 0.75 mg SQ QWEEK 03/04/19 Escitalopram Oxalate [Lexapro] 10 mg PO DAILY 03/04/19 Esomeprazole Mag Trihydrate 40 mg PO DAILY 03/04/19 [Nexium] Gabapentin 900 mg PO BID 03/04/19 Glimepiride 4 mg PO DAILY 03/18/19 Metformin HCl 1,000 mg PO BID 03/18/19 Oxycodone HCl/Acetaminophen 1 tab PO BID 03/18/19 [Percocet 5-325] Methotrexate Sodium [Methotrexate] 25 mg SQ SA 08/16/19 Propranolol HCl 60 mg PO BID 08/16/19 Tizanidine HCl [Zanaflex] 4 mg PO QHS 08/16/19 Surgical History: Surgical History (Last Reviewed 08/16/19 @ 23:[address] 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 Mason Stone MD) Brother Heart disease Mother Osteoarthritis Review of Systems Constitutional: Reports: Weakness, Fatigue. Denies: Chills, Fever, Weight Change HEENT: Denies: Head Aches, Sinus Congestion, Sinus Drainage Cardiovascular: Denies: Chest Pain, Palpitations Respiratory: Denies: Cough, Shortness of breath at rest, Sputum production Gastrointestinal: Reports: Nausea. Denies: Abdominal Pain, Vomiting Genitourinary: Denies: Dysuria Musculoskeletal: Denies: Joint Pain, Joint Tenderness Skin: Denies: Rash, Wounds Neurological: Denies: Numbness, Tingling, Focal weakness Psychiatric: Denies: Anxiety, Depression, Homicidal Ideations, Suicidal Ideations Hematologic/ Lymphatic: Denies: Easy Bruising, Easy Bleeding VTE Information - Inpt Only VTE Present on Admission: No VTE Mechan Device Prophylaxis: None VTE Pharm Prophylaxis ordered?: Yes Patient Problems: Active and Suspected Problems (Last Reviewed 08/16/19 @ 23:[address] Mason Stone MD) Hypotension (Acute) Hypotension (Acute) - Physical Exam Vitals/I&O's: Vital Signs Temp Pulse Resp BP Pulse Ox 98.9 F 84 13 79/45 L 98 08/16/19 18:48 08/16/19 21:08 08/16/19 21:08 08/16/19 21:08 08/16/19 21:08 Oxygen Delivery Method Room Air Weight: 89 kg Body Mass Index (BMI) 30.7 Finger Stick Blood Glucose 126 Intake and Output for Last 24 Hours 08/14/19 08/15/19 08/16/19 23:59 23:59 23:59 Intake Total 1999 Balance 1999 General: Alert, Oriented x3, Cooperative HEENT: Atraumatic, PERRLA, EOMI, Normocephalic Neck: Supple, No JVD, Negative Carotid Bruits Lungs: Clear to auscultation, Normal air movement Cardiovascular: Regular rate, Normal S1, Normal S2, No murmurs Abdomen: Bowel Sounds Present, Soft, Non Tender Extremities: No edema, Capillary Refill Less than 3 Seconds Skin: No rashes, No breakdown Musculoskeletal: No Tenderness to Palpation of Joints or Extremities Neurological: Cranial nerves II-XII grossly intact Psych/Mental Status: Normal Affect, Appropriate Laboratory Results 08/16/19 19:12: WBC 6.7, RBC 3.71 L, Hgb 12.2, Hct 36.7 L, MCV 98.9, MCH 32.9 H, MCHC 33.2, RDW Std Deviation 49.2 H, RDW Coeff of Arben 13.7, Plt Count 209, MPV 11.3, Immature Gran % (Auto) 0.300, Neut % (Auto) 38.8 L, Lymph % (Auto) 51.4 H, [place] % (Auto) 7.0, Eos % (Auto) 1.9, Baso % (Auto) 0.6, Absolute Neuts (auto) 2.6, Absolute Lymphs (auto) 3.45, Nucleated RBC % 0 08/16/19 19:12: Sodium 137, Potassium 3.4 L, Chloride 103, Carbon Dioxide 26.0, Anion Gap 8, BUN 7, Creatinine 0.92, Estim Creat Clear Calc 64.82, Est GFR (MDRD) Af Amer 81, Est GFR (MDRD) Non-Af 67, BUN/Creatinine Ratio 7.6 L, Glucose 295 H, Calcium 8.2 L, Total Bilirubin 0.60, Direct Bilirubin 0.16, AST 27, ALT 34, Alkaline Phosphatase 83, Total Protein 6.5, Albumin 3.3, Globulin 3.2 08/16/19 19:12: Lactic Acid 6.4 H* 08/16/19 20:28: Urine Color Yellow, Urine Clarity Clear, Urine pH 6.0, Ur Specific [place] 1.010, Urine Protein Negative, Urine Glucose (UA) 100 H, Urine Ketones 5 H, Urine Occult Blood Negative, Urine Nitrite Negative, Urine Bilirubin Negative, Urine Urobilinogen Normal, Ur Leukocyte Esterase Negative, Urine RBC 0 SEEN, Urine WBC 0 SEEN, Ur Squamous Epith Cells 0 SEEN, Urine Bacteria 0 SEEN, Hyaline Casts 0-5 SEEN, Urine Mucus 0 SEEN Current Medications Sodium Chloride () 1,000 mls @ 150 mls/hr IV .[id number] [facility] Last Admin: 08/16/19 21:50 Dose: 150 mls/hr Documented by: Assessment/Plan All Active Problems (Last Reviewed 08/16/19 @ 23:[address] Mason Stone MD) Hypotension (Acute) Hypotension (Acute) The patient is a 58 year old F with a significant history of pseudobulbar affect; diabetes mellitus; hypertension; and Parkinson's disease who presented to the emergency department with vertigo; nausea and a fall and found to have severely elevated lactic acid and hypotension. Hypotension Etiology is unclear. Received IV fluid bolus at the emergency department. Patient received Solu-Cortef and was started on maintenance infusion. His blood pressure was noted to improve in the emergency department. We will continue patient on normal saline infusion at 150 mL's per hour. We will check TSH and morning cortisol level. Echocardiogram on 03/05/2019 showed left ventricle ejection fraction of 55% and stage I diastolic dysfunction. At home propanolol the patient takes for tachycardia. 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 If blood pressure continues to be stable consider resuming home narcotics. Blood culture x2 was ordered emergency department; follow. Varnishing Unit Tool Setter consult. Lactic acidosis On presentation lactic acidosis was 6.4 Trend lactic acid IV fluids as above. Hold home metformin. Diabetes mellitus with hyperglycemia Blood glucose on presentation was 295. Hold home metformin secondary to lactic acidosis. Hold Trulicity in the hospital setting. Glimepiride continued. Accu-Chek with correction scale insulin ordered. Parkinson's disease Stalevo and Sinemet continued Rasagiline continued Depression and anxiety Lexapro continued Neuropathy Gabapentin continued Pseudobulbar effect Nuedexta continue Lupus Methotrexate continued Obesity: Complicates care. DVT prophylaxis Subcutaneous Lovenox Code Visit Inpatient E&M: 11917 Init Hosp L3
[2019-08-16 23:16] LABS: Lactic Acid 2.7 mmol/L (0.4-1.9)
[2019-08-16 23:21] LABS: Reflex Lactate? Y
--- NOTE | 2019-08-16 23:29 | NURSING ---
Report received from UI ARCHITECT.
[2019-08-17] VITALS (19 sets, daily range): BP systolic 113–160; BP diastolic 67–96; PULSE 79–102; RESP 12–18; TEMP 36.1–36.9; O2SAT 93–99
[2019-08-17 00:11] LABS: Bedside Glucose 187 mg/dL (70-110)
[2019-08-17 00:23] LABS: Thyroid Stim Hormone (TSH) 2.93 uIU/mL (0.358-3.74)
[2019-08-17] MEDS: Insulin Lispro 100 UNIT/ML INSULN.PEN SC (00:31)
[2019-08-17] MEDS: Gabapentin 300 MG Capsule 900 MG PO ×2 (00:33→10:25)
[2019-08-17] MEDS: CARBIDOPA/LEVODOPA CR 50/200 Tablet PO ×2 (00:34→10:24)
[2019-08-17] MEDS: tiZANidine HCl 2 MG Tablet 4 MG PO (00:36)
[2019-08-17] MEDS: clonazePAM 1 MG Tablet PO (00:46)
[2019-08-17] MEDS: 0.9% Normal Saline 1,000 ML 150 ML IV (02:33)
[2019-08-17] MEDS: 0.9% Saline Lock 10 ML Syringe IV (02:34)
[2019-08-17 02:35] LABS: Reflex Lactate? Y
[2019-08-17 02:49] LABS: Absolute Lymphocyte Count 1.25 X10^3/uL (0.83-4.51); Absolute Neutrophil Count 2.9 X10^3/uL (2.0-7.7); Basophil# 0.01 X10^3/uL; Basophil% 0.2 % (0-1); Eosinophil# 0.01 X10^3/uL; Eosinophils% 0.2 % (0-5); Hematocrit 36.1 % (37-47); Lymphocyte # 1.25 X10^3/ul (4.0); Lymphocyte % 29.3 % (19-41); Mean Corp Hgb Conc 33.2 g/dL (32-36); Mean Corpuscular Hgb 32.5 pg (27.0-32.0); Mean Corpuscular Volume 97.8 fL (81-99); Monocyte# 0.11 X10^3/uL; Monocyte% 2.6 % (0-10); NRBC Flagged by Analyzer 0 % (0-5); Neutrophil # 2.87 X10^3/uL (2.7-7.7); Neutrophil % 67.2 % (47-70); Platelet Count 189 K/mm3 (150-450); RBC Distribution Width CV 13.8 % (11.6-14.6); RBC Distribution Width SD 48.9 fl (35.1-43.9); Red Blood Count 3.69 M/mm3 (4.2-5.4); White Blood Count 4.3 K/mm3 (4.4-11.0)
[2019-08-17 03:08] LABS: Anion Gap 8 (5-15); BUN 6 mg/dL (7-18); BUN/Creat Ratio 7.9 RATIO (10-20); Calcium,Total 8.1 mg/dL (8.5-10.1); Chloride 106 mmol/L (98-107); Creatinine, Serum 0.76 mg/dL (0.55-1.02); EST Glomerular Filtration Rate 83 mL/min (>60); Est Glom Filt Rate - Afr Amer 101 mL/min (>60); Estimated Creatinine Clearance 78.46 ml/min; Glucose 260 mg/dL (74-106); Sodium Level 142 mmol/L (136-145)
--- NOTE | 2019-08-17 03:48 | NURSING ---
Pt had not taken any home medications scheduled BID before admission. Administered PM meds as charted on AUG.
[2019-08-17 03:55] LABS: Lactic Acid 4.3 mmol/L (0.4-1.9)
--- NOTE | 2019-08-17 07:52 | CON.PCM_ITS ---
Problem List (1) Hypotension Status: Acute Qualifiers: Hypotension type: unspecified hypotension type Qualified Code(s): I95.9 - Hypotension, unspecified (2) DEBORA (acute kidney injury) Status: Inactive (3) Esophageal stricture Status: Chronic (4) Irritable bowel syndrome (IBS) Status: Chronic (5) Osteoarthritis of lumbosacral spine Status: Chronic Comment: Chronic low back pain Multiple surgeries Pain management (6) Gastroparesis Status: Chronic (7) Parkinsons disease Status: Chronic (8) Diabetes mellitus Status: Chronic Qualifiers: Diabetes mellitus type: type 2 Reason for Consult Date of Consultation: 08/17/19 Reason for Consultation: Hypotension History of Present Illness: The patient is a 59 year old F, with past medical history listed below, who presented was [facility] on 08/16/2019 secondary to dizziness and weakness. Patient states that she had noticed over the last 3 to 4 days that she has had decreased urine output and an increased need to rest with exertion. Patient denied any fevers or chills. Patient has not had any URI symptoms such as cough, sinus congestion or shortness of breath. Patient states that she had very similar symptomatology back in February when she was diagnosed with sepsis, so came in to be evaluated. Patient reportedly did require significant fluids at that time. Patient states I drink all the time. Patient denies any recent change in her medications and states that her blood pressure is typically normal. On arrival to the ER, patient was not febrile, but was hypotensive at 79/64 saturating 96% on room air. EKG showed sinus rhythm with diffuse T wave flattening that was unchanged compared to March 2019. Patient was given 30 cc/kg of IV fluids with no significant improvement. Patient was also given a dose of Solu-Cortef for empiric concern of adrenal insufficiency. It is unclear if cortisol was drawn prior to administration. Lactate was elevated. Patient was transferred to the intensive care unit for further evaluation. This morning, patient reports that she feels subjectively improved compared to previous. Patient has not been out of bed, but does state that her dizziness feels like it is improved. Patient continues to deny any significant prodromal symptoms outside of feeling weak. Patient denies any lower extremity edema or chest pain. No trauma or syncope was reported despite feeling dizzy with change in position. Patient reports she has been compliant with her baseline therapy and did not report any low blood sugars at home. Review of systems otherwise negative from a constitutional, HEENT, respiratory, cardiovascular, GI, genitourinary, musculoskeletal, skin, neurologic, psychiatric and hematologic system unless stated above. Past Medical History Past Medical History (Chronic Problems): Chronic Problems (Last Reviewed 08/16/19 @ 23:[address] Mason Stone MD) Esophageal stricture (Chronic) Irritable bowel syndrome (IBS) (Chronic) Osteoarthritis of lumbosacral spine (Chronic) Chronic low back pain Multiple surgeries Pain management Gastroparesis (Chronic) Parkinsons disease (Chronic) Diabetes mellitus (Chronic) Medical History: Medical History (Last Reviewed 08/16/19 @ 23:[address] 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 Parkinson disease G20 Hypertension I10 Lupus L93.0 Sleep apnea G47.30 Allergies indomethacin [From Indocin] Allergy (Verified 08/16/19 18:46) Rash indomethacin sodium [From Indocin] Allergy (Verified 08/16/19 18:46) Rash Penicillins Allergy (Verified 08/16/19 18:46) Rash clarithromycin [From Biaxin] Adverse Reaction (Verified 08/16/19 18:46) Diarrhea Home Medications: Ambulatory Orders Medication Instructions Recorded Rasagiline Mesylate [Azilect] 1 mg PO DAILY 03/17/13 Nuedexta 04/04 1 tab PO DAILY 03/18/13 Carbidopa/Levodopa [Sinemet Cr 1.5 tab PO BID 01/15/15 25-100 Tablet] morphine SR tablet [Ms Contin] 15 mg PO BID 01/15/15 Carbidopa/Levodopa/Entacapone 1 ea PO BID 05/21/16 [Stalevo 150 Tablet] Ondansetron [Zofran Odt] 4 mg PO Q8H PRN PRN #10 tablet 11/15/17 Clonazepam 1 mg PO QHS 03/04/19 Dulaglutide [Trulicity] 0.75 mg SQ QWEEK 03/04/19 Escitalopram Oxalate [Lexapro] 10 mg PO DAILY 03/04/19 Esomeprazole Mag Trihydrate 40 mg PO DAILY 03/04/19 [Nexium] Gabapentin 900 mg PO BID 03/04/19 Glimepiride 4 mg PO DAILY 03/18/19 Metformin HCl 1,000 mg PO BID 03/18/19 Oxycodone HCl/Acetaminophen 1 tab PO BID 03/18/19 [Percocet 5-325] Methotrexate Sodium [Methotrexate] 25 mg SQ SA 08/16/19 Propranolol HCl 60 mg PO BID 08/16/19 Tizanidine HCl [Zanaflex] 4 mg PO QHS 08/16/19 Surgical History: Surgical History (Last Reviewed 08/16/19 @ 23:[address] Mason Stone MD) History of cholecystectomy Z90.49 History of knee surgery Z98.890 H/O: hysterectomy Z98.890, Z90.710 History of back surgery Z98.890 x3 S/P cholecystectomy Z90.49 S/P left knee surgery Z98.890 Status post arthroscopy of hip Z98.890 left 02/05/17 Status post carpal tunnel release Z98.890 right and left 10/18/11 Surgical History: cholecystectomy, hysterectomy Psychiatric History: No pertinent psych hx TREE SAPPER History: No pertinent TREE SAPPER history Lives: Alone, With Family Smoking Status: Never smoker - *Family History Maternal Family History: Family History (Last Reviewed 08/16/19 @ 23:[address] Mason Stone MD) Brother Heart disease Mother Osteoarthritis History Items: No pertinent history Review of Systems Comment: See HPI Patient Problems: Active and Suspected Problems (Last Reviewed 08/16/19 @ 23:[address] Mason Stone MD) Hypotension (Acute) Hypotension (Acute) - Physical Exam Vitals/I&O's: Vital Signs Temp Pulse Resp BP Pulse Ox 36.4 C L 91 13 131/86 H 97 08/17/19 04:00 08/17/19 07:00 08/17/19 07:00 08/17/19 07:00 08/17/19 07:00 Oxygen Delivery Method Room Air Weight: 88.4 kg Body Mass Index (BMI) 30.5 Finger Stick Blood Glucose 126 Intake and Output for Last 24 Hours 08/15/19 08/16/19 08/17/19 23:59 23:59 23:59 Intake Total 3000 / 3480 1705.0 / 1705.0 Output Total 0 / 0 Balance 3000 / 3480 1705.0 / 1705.0 General: Alert, Oriented x3, Cooperative, No apparent distress, Well developed, Well nourished, - - Obese. Speaking in full sentences. HEENT: Atraumatic, PERRLA, EOMI, Normocephalic, - - No scleral icterus or injection noted Oral: Moist Mucosa, No Gingival or Mucosal Lesions/ Ulcerations Neck: Supple, No JVD, No Nodes, Trachea Midline Lungs: Clear to auscultation, No rhonchi, No wheeze, No rales Cardiovascular: Regular rate, Regular Rhythm, Normal S1, Normal S2, No murmurs, No rub noted, No Gallop Abdomen: Bowel Sounds Present, Soft, Non Tender, Non-Distended, Obese Extremities: No clubbing, No cyanosis, No edema, Capillary Refill Less than 3 Seconds Skin: No rashes, No breakdown Musculoskeletal: No Tenderness to Palpation of Joints or Extremities Lymphatic: No Cervical, Supraclavicular, or Inguinal Adenopathy Neurological: Cranial nerves II-XII grossly intact, Neuro grossly intact, Motor Exam 5/5 strength throughout Psych/Mental Status: Alert and oriented to time, place, person, mood and affect Laboratory Results 08/16/19 19:12: WBC 6.7, RBC 3.71 L, Hgb 12.2, Hct 36.7 L, MCV 98.9, MCH 32.9 H, MCHC 33.2, RDW Std Deviation 49.2 H, RDW Coeff of Arben 13.7, Plt Count 209, MPV 11.3, Immature Gran % (Auto) 0.300, Neut % (Auto) 38.8 L, Lymph % (Auto) 51.4 H, [place] % (Auto) 7.0, Eos % (Auto) 1.9, Baso % (Auto) 0.6, Absolute Neuts (auto) 2.6, Absolute Lymphs (auto) 3.45, Nucleated RBC % 0 08/16/19 19:12: Sodium 137, Potassium 3.4 L, Chloride 103, Carbon Dioxide 26.0, Anion Gap 8, BUN 7, Creatinine 0.92, Estim Creat Clear Calc 64.82, Est GFR (MDRD) Af Amer 81, Est GFR (MDRD) Non-Af 67, BUN/Creatinine Ratio 7.6 L, Glucose 295 H, Calcium 8.2 L, Total Bilirubin 0.60, Direct Bilirubin 0.16, AST 27, ALT 34, Alkaline Phosphatase 83, Total Protein 6.5, Albumin 3.3, Globulin 3.2 08/16/19 19:12: Lactic Acid 6.4 H* 08/16/19 19:12: TSH 2.93 08/16/19 20:28: Urine Color Yellow, Urine Clarity Clear, Urine pH 6.0, Ur Specific [place] 1.010, Urine Protein Negative, Urine Glucose (UA) 100 H, Urine Ketones 5 H, Urine Occult Blood Negative, Urine Nitrite Negative, Urine Bilirubin Negative, Urine Urobilinogen Normal, Ur Leukocyte Esterase Negative, Urine RBC 0 SEEN, Urine WBC 0 SEEN, Ur Squamous Epith Cells 0 SEEN, Urine Bacteria 0 SEEN, Hyaline Casts 0-5 SEEN, Urine Mucus 0 SEEN 08/16/19 22:28: Lactic Acid 2.7 H* 08/17/19 00:08: POC Glucose 187 H 08/17/19 02:30: WBC 4.3 L, RBC 3.69 L, Hgb 12.0, Hct 36.1 L, MCV 97.8, MCH 32.5 H, MCHC 33.2, RDW Std Deviation 48.9 H, RDW Coeff of Arben 13.8, Plt Count 189, MPV 11.0, Immature Gran % (Auto) 0.500, Neut % (Auto) 67.2, Lymph % (Auto) 29.3, [place] % (Auto) 2.6, Eos % (Auto) 0.2, Baso % (Auto) 0.2, Absolute Neuts (auto) 2.9, Absolute Lymphs (auto) 1.25, Nucleated RBC % 0 08/17/19 02:30: Sodium 142, Potassium 4.0, Chloride 106, Carbon Dioxide 28.0, Anion Gap 8, BUN 6 L, Creatinine 0.76, Estim Creat Clear Calc 78.46, Est GFR (MDRD) Af Amer 101, Est GFR (MDRD) Non-Af 83, BUN/Creatinine Ratio 7.9 L, Glucose 260 H, Calcium 8.1 L 08/17/19 02:30: Cortisol 20.90 08/17/19 02:30: Lactic Acid 4.3 H* Current Medications Acetaminophen (Tylenol) 650 mg PO Q6H PRN PRN PRN Reason: Pain Score 1-10/Temp > 100.7 F Carbidopa/Levodopa (Sinemet Cr) 0.75 tablet PO BID [facility] Last Admin: 08/17/19 00:34 Dose: 0.75 tablet Documented by: Carbidopa/Levodopa/Entacapone (Stalevo 150) 1 tablet PO BID [facility] Last Admin: 08/17/19 00:36 Dose: 1 tablet Documented by: Clonazepam (Klonopin) 1 mg PO QHS [facility] Last Admin: 08/17/19 00:53 Dose: Not Given Documented by: Enoxaparin Sodium (Lovenox) 40 mg SC DAILY [facility] Escitalopram Oxalate (Lexapro) 10 mg PO DAILY [facility] Gabapentin (Neurontin) 900 mg PO BID [facility] Last Admin: 08/17/19 00:33 Dose: 900 mg Documented by: Glimepiride (Amaryl) 4 mg PO DAILY [facility] Glucagon () 1 mg IM .X1 PRN PRN Reason: Hypoglycemia Dextrose (Dextrose 10%-Water) 250 mls @ 999 mls/hr IV .Q16M PRN; Protocol PRN Reason: HYPOGLYCEMIA Sodium Chloride () 250 mls @ 15 mls/hr IV .[id number] PRN PRN Reason: Saline Flush Sodium Chloride () 250 mls @ 15 mls/hr IV .[id number] PRN PRN Reason: Additional IVPB Infusion Influenza Virus Vaccine Quadrival (Flucelvax /Fluzone ) 0.5 ml IM .ONCE ONE Stop: 08/17/19 10:01 Insulin Human Lispro (Humalog Kwikpen (Bkc)) 0 unit SC [facility]; Protocol Last Admin: 08/17/19 00:31 Dose: 2 units Documented by: Non-Formulary Medication (Methotrexate Sodium [Methotrexate]) 25 mg SQ SA [facility] Non-Formulary Medication (Nuedexta 20/10) 1 tab PO DAILY [facility] Ondansetron HCl (Zofran) 4 mg IV Q8H PRN PRN PRN Reason: NAUSEA/VOMITING Pantoprazole Sodium (Protonix) 40 mg PO DAILY [facility] Rasagiline (Azilect) 1 mg PO DAILY [facility] Sodium Chloride () 10 - 40 ml IV UD PRN PRN Reason: SALINE FLUSH Last Admin: 08/17/19 02:34 Dose: 10 ml Documented by: Tizanidine HCl (Zanaflex) 4 mg PO QHS [facility] Last Admin: 08/17/19 00:36 Dose: 4 mg Documented by: Assessment/Plan Active and Suspected Problems (Last Reviewed 08/16/19 @ 23:[address] Mason Stone MD) Hypotension (Acute) Hypotension (Acute) RECOMMENDATIONS: 1. Continue to monitor off antibiotics 2. Check orthostatic blood pressures 3. Consider tilt table test 4. Continue baseline medications except antihypertensives 5. Hold on steroid therapy for now 6. Okay to leave the intensive care unit from my perspective IMPRESSIONS: 1. Hypotension Exact etiology is unclear at this time. Patient did receive significant volume resuscitation in the ER with improvement in blood pressure. This has been consistent overnight. Patient is not reporting any prodromal symptoms to suggest sepsis at this time. Patient does have relative leukopenia with elevated lactate. Saturations were reportedly acceptable on presentation. Patient did have an echocardiogram in February 2019 showing an EF of 55%, but has no EKG changes at this time. Await blood culture results. Echo orthostatic blood pressures. Consider tilt table testing as an outpatient. 2. Lactic acidosis Unclear etiology. Patient did not have any significant renal dysfunction noted from baseline, but does have metformin. Patient did have some decreased blood pressure, so peripheral decreased perfusion would be suspected. No indication for repeating at this time from my perspective. No seizure activity has been reported. 3. Uncontrolled diabetes mellitus/Parkinson's dis ease/depression/anxiety/neuropathy/pseudobulbar affect/lupus/obesity Complicates care, management, recovery and prognosis. We will have to watch blood sugars closely given discontinuation of metformin and recent steroids. Would not continue steroids as cortisol level appears to be appropriate at this time. Continue routine prophylactic measures. Okay to continue other baseline medications. Cannot exclude methotrexate toxicity as an etiology of decreased white blood cell count, but this does not appear to be across all cell lines at this time. Code Visit Inpatient E&M: 71455 Init Hosp L2
[2019-08-17 08:11] LABS: Bedside Glucose 123 mg/dL (70-110)
[2019-08-17] MEDS: Glimepiride 4 MG Tablet PO (10:24)
[2019-08-17] MEDS: Pantoprazole Sodium 40 MG Tablet PO (10:24)
[2019-08-17] MEDS: Enoxaparin 40 MG/0.4 ML Syringe SC (10:26)
[2019-08-17] MEDS: Escitalopram Oxalate 10 MG Tablet PO (10:29)
--- NOTE | 2019-08-17 10:30 | CASEMGMT ---
RN CM Assessment Introduced role of RN CM to patient and patient Dtr Makeda at bedside.? Patient is alert, oriented and able?to participate in RN CM Assessment. ?Care providers, pharmacy, and demographics verified. Presentation: Vertigo, Weakness, nausea. H/o Parkinson's Dz, Pseudobulbar affect. Admit Dx: Hypotension Re-Admit: No Barriers/Issues: None. Patient bedroom on 2nd fl with 12-13 steps to get up. Per Dtr Makeda could accommodate 1st fl set up if they really needed to but bathroom is on 2nd fl and would need a BSC to do so- patient opposed to idea of BSC. PCP: José Miguel Randhawa Specialists: Rheum- Dr Mcbride in [place], [place]. Neuro- Dr Kaufman. Pain- Bakari, HOISTING ENGINE OPERATOR with [facility]. Preferred Pharmacy: [facility] Insurance: [employer], AT [employer] Benefit:?Yes ?LNOK: Dtr Julio Benz, Dtr Makeda Robert LW/HPOA: None, would like to complete advanced directives. JAMES Chung made aware. Living Arrangements:? Lives with Dtr Makeda in a 2SH, 2 steps to enter either through the front or back of home. ADL?s: Independent with ambulation and ADLs Transportation: Dtr Makeda DME: [facility] and states Bipap broken. HHC: None SNF: None Goal: Home and does not think will have any needs. Denies any issues, concerns, needs, or questions with DC planning at this time. Aware CM remains available for any emerging needs. DC PLAN: Home and no anticipated needs identified at this time. MARIA ISABEL Rivera
--- NOTE | 2019-08-17 11:35 | CASEMGMT ---
Social Work SW met with pt and daughter in room. Introduced self and role of SW at [facility]. Pt expressing interest in completing Advance Directives. SW explained both HCPOA and Living Will and assisted pt in completing documents. Pt naming Children Willie Marquez, Makeda Jones and Julio Benz as HCPOA. Original given to pt and copy placed in chart. ANGEL Lovelace
--- NOTE | 2019-08-17 11:41 | NURSING ---
report called to med-surgtransferred per wheelchair with belongings to room 317, daughter present
[2019-08-17 12:51] LABS: Bedside Glucose 141 mg/dL (70-110)
--- NOTE | 2019-08-17 16:28 | PCM.PROGNOTE ---
Patient Problems: Active and Suspected Problems (Last Reviewed 08/16/19 @ 23:[address] Mason Stone MD) Hypotension (Acute) Hypotension (Acute) Subjective: Patient was seen and examined today in the ICU, she was admitted for hypotension last night, the etiology of the hypotension is unknown at this time, I talked with pulmonary medicine about her care and they stated that she could be transferred to the floor for further care today. - Physical Exam Vitals/I&O's: Vital Signs Temp Pulse Resp BP Pulse Ox 98.4 F 86 18 160/96 H 94 08/17/19 14:29 08/17/19 14:33 08/17/19 14:29 08/17/19 14:33 08/17/19 14:29 Oxygen Delivery Method Room Air Weight: 88.4 kg Body Mass Index (BMI) 30.5 Finger Stick Blood Glucose 126 Orthostatic Vital Signs Start: 08/17/19 14:33 Freq: 1630 Status: Active Protocol: Activity Type Activity Date Activity User E-Sign Co-Sign Detail Recorded Client Recorded Date Recorded By Document 08/17/19 14:33 DS [id number] 08/17/19 14:37 DS 08/17/19 14:33 Orthostatic Vitals Standing -Blood Pressure (90/60-120/80) 123/77 H -Extremity Use Left Arm -Pulse Rate (60-100) 98 Sitting -Blood Pressure (90/60-120/80) 140/88 H -Extremity Use Left Arm -Pulse Rate (60-100) 90 Lying -Blood Pressure (90/60-120/80) 160/96 H -Extremity Use Left Arm -Pulse Rate (60-100) 86 Intake and Output for Last 24 Hours 08/15/19 08/16/19 08/17/19 23:59 23:59 23:59 Intake Total 3000 / 3480 2060.0 / 2060.0 Output Total 0 / 0 Balance 3000 / 3480 2060.0 / 2060.0 Laboratory Results 08/16/19 19:12: WBC 6.7, RBC 3.71 L, Hgb 12.2, Hct 36.7 L, MCV 98.9, MCH 32.9 H, MCHC 33.2, RDW Std Deviation 49.2 H, RDW Coeff of Arben 13.7, Plt Count 209, MPV 11.3, Immature Gran % (Auto) 0.300, Neut % (Auto) 38.8 L, Lymph % (Auto) 51.4 H, [place] % (Auto) 7.0, Eos % (Auto) 1.9, Baso % (Auto) 0.6, Absolute Neuts (auto) 2.6, Absolute Lymphs (auto) 3.45, Nucleated RBC % 0 08/16/19 19:12: Sodium 137, Potassium 3.4 L, Chloride 103, Carbon Dioxide 26.0, Anion Gap 8, BUN 7, Creatinine 0.92, Estim Creat Clear Calc 64.82, Est GFR (MDRD) Af Amer 81, Est GFR (MDRD) Non-Af 67, BUN/Creatinine Ratio 7.6 L, Glucose 295 H, Calcium 8.2 L, Total Bilirubin 0.60, Direct Bilirubin 0.16, AST 27, ALT 34, Alkaline Phosphatase 83, Total Protein 6.5, Albumin 3.3, Globulin 3.2 08/16/19 19:12: Lactic Acid 6.4 H* 08/16/19 19:12: TSH 2.93 08/16/19 20:28: Urine Color Yellow, Urine Clarity Clear, Urine pH 6.0, Ur Specific [place] 1.010, Urine Protein Negative, Urine Glucose (UA) 100 H, Urine Ketones 5 H, Urine Occult Blood Negative, Urine Nitrite Negative, Urine Bilirubin Negative, Urine Urobilinogen Normal, Ur Leukocyte Esterase Negative, Urine RBC 0 SEEN, Urine WBC 0 SEEN, Ur Squamous Epith Cells 0 SEEN, Urine Bacteria 0 SEEN, Hyaline Casts 0-5 SEEN, Urine Mucus 0 SEEN 08/16/19 22:28: Lactic Acid 2.7 H* 08/17/19 00:08: POC Glucose 187 H 08/17/19 02:30: WBC 4.3 L, RBC 3.69 L, Hgb 12.0, Hct 36.1 L, MCV 97.8, MCH 32.5 H, MCHC 33.2, RDW Std Deviation 48.9 H, RDW Coeff of Arben 13.8, Plt Count 189, MPV 11.0, Immature Gran % (Auto) 0.500, Neut % (Auto) 67.2, Lymph % (Auto) 29.3, [place] % (Auto) 2.6, Eos % (Auto) 0.2, Baso % (Auto) 0.2, Absolute Neuts (auto) 2.9, Absolute Lymphs (auto) 1.25, Nucleated RBC % 0 08/17/19 02:30: Sodium 142, Potassium 4.0, Chloride 106, Carbon Dioxide 28.0, Anion Gap 8, BUN 6 L, Creatinine 0.76, Estim Creat Clear Calc 78.46, Est GFR (MDRD) Af Amer 101, Est GFR (MDRD) Non-Af 83, BUN/Creatinine Ratio 7.9 L, Glucose 260 H, Calcium 8.1 L 08/17/19 02:30: Cortisol 20.90 08/17/19 02:30: Lactic Acid 4.3 H* 08/17/19 08:07: POC Glucose 123 H 08/17/19 12:43: POC Glucose 141 H Current Medications Acetaminophen (Tylenol) 650 mg PO Q6H PRN PRN PRN Reason: Pain Score 1-10/Temp > 100.7 F Carbidopa/Levodopa (Sinemet Cr) 0.75 tablet PO BID [facility] Last Admin: 08/17/19 10:24 Dose: 0.75 tablet Documented by: Carbidopa/Levodopa/Entacapone (Stalevo 150) 1 tablet PO BID [facility] Last Admin: 08/17/19 10:26 Dose: 1 tablet Documented by: Clonazepam (Klonopin) 1 mg PO QHS [facility] Last Admin: 08/17/19 00:53 Dose: Not Given Documented by: Enoxaparin Sodium (Lovenox) 40 mg SC DAILY [facility] Last Admin: 08/17/19 10:26 Dose: 40 mg Documented by: Escitalopram Oxalate (Lexapro) 10 mg PO DAILY [facility] Last Admin: 08/17/19 10:29 Dose: 10 mg Documented by: Gabapentin (Neurontin) 900 mg PO BID [facility] Last Admin: 08/17/19 10:25 Dose: 900 mg Documented by: Glimepiride (Amaryl) 4 mg PO DAILY [facility] Last Admin: 08/17/19 10:24 Dose: 4 mg Documented by: Glucagon () 1 mg IM .X1 PRN PRN Reason: Hypoglycemia Dextrose (Dextrose 10%-Water) 250 mls @ 999 mls/hr IV .Q16M PRN; Protocol PRN Reason: HYPOGLYCEMIA Sodium Chloride () 250 mls @ 15 mls/hr IV .[id number] PRN PRN Reason: Saline Flush Sodium Chloride () 250 mls @ 15 mls/hr IV .[id number] PRN PRN Reason: Additional IVPB Infusion Insulin Human Lispro (Humalog Kwikpen (Bkc)) 0 unit SC [facility]; Protocol Last Admin: 08/17/19 12:44 Dose: Not Given Documented by: Ondansetron HCl (Zofran) 4 mg IV Q8H PRN PRN PRN Reason: NAUSEA/VOMITING Pantoprazole Sodium (Protonix) 40 mg PO DAILY [facility] Last Admin: 08/17/19 10:24 Dose: 40 mg Documented by: Rasagiline (Azilect) 1 mg PO DAILY [facility] Last Admin: 08/17/19 10:27 Dose: 1 mg Documented by: Sodium Chloride () 10 - 40 ml IV UD PRN PRN Reason: SALINE FLUSH Last Admin: 08/17/19 02:34 Dose: 10 ml Documented by: Tizanidine HCl (Zanaflex) 4 mg PO QHS [facility] Last Admin: 08/17/19 00:36 Dose: 4 mg Documented by: Medical Necessity - Tobacco Use Smoking Status: Never smoker Assessment/Plan All Active Problems (Last Reviewed 08/16/19 @ 23:[address] Mason Stone MD) Hypotension (Acute) Hypotension (Acute)
--- NOTE | 2019-08-17 16:58 | DCINST_ITS ---
- Discharge Diagnoses Current Active Problems: Current Active and Chronic Problems (Last Reviewed 08/16/19 @ 23:[address] Mason Stone MD) Hypotension (Acute) Hypotension (Acute) You will use the following diet at home:: Calorie/Carbohydrate Controlled (specify 1200, 1400, etc) - 1800 annita Your food should be the consistency of: Regular Your liquids should be the consistency of: Regular/Thin Discharge Activity: Return to Normal Activity Weight Bearing Status: Full weight bearing Allergies/Adverse Reactions: Allergies indomethacin [From Indocin] Allergy (Verified 08/16/19 18:46) Rash indomethacin sodium [From Indocin] Allergy (Verified 08/16/19 18:46) Rash Penicillins Allergy (Verified 08/16/19 18:46) Rash clarithromycin [From Biaxin] Adverse Reaction (Verified 08/16/19 18:46) Diarrhea Medications to take at Discharge Rasagiline Mesylate [Azilect] 1 mg PO DAILY 03/17/13 Nuedexta 20/ 1 tab PO DAILY 03/18/13 Carbidopa/Levodopa [Sinemet Cr 25-100 Tablet] 1.5 tab PO BID 01/15/15 morphine SR tablet [Ms Contin] 15 mg PO BID 01/15/15 Carbidopa/Levodopa/Entacapone [Stalevo 150 Tablet] 1 ea PO BID 05/21/16 Ondansetron [Zofran Odt] 4 mg PO Q8H PRN PRN #10 tablet 11/15/17 Clonazepam 1 mg PO QHS 03/04/19 Dulaglutide [Trulicity] 0.75 mg SQ QWEEK 03/04/19 Escitalopram Oxalate [Lexapro] 10 mg PO DAILY 03/04/19 Esomeprazole Mag Trihydrate [Nexium] 40 mg PO DAILY 03/04/19 Gabapentin 900 mg PO BID 03/04/19 Glimepiride 4 mg PO DAILY 03/18/19 Oxycodone HCl/Acetaminophen [Percocet 5-325] 1 tab PO BID 03/18/19 Methotrexate Sodium [Methotrexate] 25 mg SQ SA 08/16/19 Propranolol HCl 60 mg PO BID 08/16/19 Tizanidine HCl [Zanaflex] 4 mg PO QHS 08/16/19 Primary Care Physician: Clemente Randhawa MD [Primary Care Provider] - Please follow up with your Primary Care Physician in: in 5-7 days Test Results: Test results from this visit will be discussed in further detail at your follow- up appointment, if applicable.
[2019-08-17 17:40] LABS: Bedside Glucose 137 mg/dL (70-110)
--- NOTE | 2019-08-19 15:34 | CASEMGMT ---
BRITTNEY RITCHIE Discharge Follow-Up Phone Call. Lackhushbu: 11 Strata: 3 Discharge Date: 08/17/19 Adm Dx: Hypotension Call to pt to inquire about how she has been doing since being discharged from the hospital. Pt's daughter, Makeda, answered the phone and provided the following information. Makeda states she and her mom are both feeling under the weather now but the symptoms her mother is having is not related to why she was in the hospital. She states her mother has been up and around today and eating. She stated her mother got up in the middle of the night last night and was really thirsty and drank a lot of water and she voiced concerns maybe her blood sugar level was up. She states that pt has not been excessively thirsty today, that it was just last night. Makeda states they do have a glucometer, but she was not concerned about it today and did not check her sugar level. BRITTNEY RITCHIE advised Makeda to check her blood sugar level if she has any further concerns and to inform Dr Randhawa if it is low or high. She voices understanding. She states pt has an appt with Dr Randhawa next Friday in the afternoon. She denies having any questions about the discharge instructions or medications and denies needs at this time. BRITTNEY RITCHIE thanked daughter for choosing [facility]. Sebas HERNANDEZ RN, CM
--- NOTE | 2019-08-19 15:45 | DS.PCM_ITS ---
Discharge Date and Diagnosis Date of Admission: 08/16/19 Date of Discharge: 08/17/19 - Primary Discharge Diagnosis #1 hypotension-etiology unknown #2 lactic acidosis-probably secondary to metformin usage #3 type 2 diabetes #4 Parkinson's disease - Secondary Discharge Diagnosis Chronic Problems (Last Reviewed 08/16/19 @ 23:[address] Mason Stone MD) Esophageal stricture (Chronic) Irritable bowel syndrome (IBS) (Chronic) Osteoarthritis of lumbosacral spine (Chronic) Chronic low back pain Multiple surgeries Pain management Gastroparesis (Chronic) Parkinsons disease (Chronic) Diabetes mellitus (Chronic) Hospital Course and Treatment Operations: None Procedures: None Summary of Care Provided: The patient is a 59 year old F was seen in the emergency room at [facility] with a chief complaint of weakness and feeling lightheaded. Work-up in the ER revealed a blood pressure of 79/64, labs were obtained and the patient had a normal CBC, chemistry profile revealed a glucose of 295, potassium was 3.4, lactic acid was elevated at 6.4. Urinalysis was unremarkable. Patient was given IV fluid boluses, she was also given a dose of Solu-Cortef, systolic blood pressure readings milo within a half an hour. Patient was admitted to ICU, she was seen in consultation by critical care, critical care was not sure the etiology of her hypotension and lactic acidosis. Patient remained stable in the ICU and was moved out to [place] [id number]. Later that day she was seen and examined: On examination she appeared in good health and spirits. Vital signs as documented. Skin warm and dry and without overt rashes. Neck without JVD. Lungs clear. Heart exam notable for regular rhythm, normal sounds and absence of murmurs, rubs or gallops. Abdomen unremarkable and without evidence of organomegaly, masses, or abdominal aortic enlargement. Extremities nonedematous. Neuro: Cranial nerves II through XII are grossly intact, no focal motor deficits were noted, sensation to light touch and pinprick is intact. Psych: Patient is alert and oriented x3, she does not appear anxious or depressed Patient was discharged home in stable condition on 08/17/2019. - Physical Exam Vitals/I&O's: Vital Signs Temp Pulse Resp BP Pulse Ox 98.4 F 93 18 129/67 H 94 08/17/19 14:29 08/17/19 17:01 08/17/19 14:29 08/17/19 16:46 08/17/19 14:29 Oxygen Delivery Method Room Air Weight: 88.4 kg Body Mass Index (BMI) 30.5 Finger Stick Blood Glucose 126 Orthostatic Vital Signs Start: 08/17/19 14:33 Freq: 1630 Status: Active Protocol: Activity Type Activity Date Activity User E-Sign Co-Sign Detail Recorded Client Recorded Date Recorded By Document 08/17/19 16:46 DS [id number] 08/17/19 16:53 DS 08/17/19 16:46 Orthostatic Vitals Standing -Blood Pressure (90/60-120/80) 122/77 H -Extremity Use Left Arm -Pulse Rate (60-100) 102 H Sitting -Blood Pressure (90/60-120/80) 127/76 H -Extremity Use Left Arm -Pulse Rate (60-100) 91 Lying -Blood Pressure (90/60-120/80) 129/67 H -Extremity Use Left Arm -Pulse Rate (60-100) 93 Intake and Output for Last 24 Hours 08/17/19 08/18/19 08/19/19 23:59 23:59 23:59 Intake Total 2060.0 / 2060.0 Output Total 0 / 0 Balance 2060.0 / 2060.0 Microbiology Past 72 Hours 08/16/19 19:20 Blood Culture (Wb) - Left Wrist Blood Culture - Preliminary No growth in 48 hours. 08/16/19 19:12 Blood Culture (Wb) - No Site/Description Given Blood Culture - Preliminary No growth in 48 hours. Discharge Activity: Return to Normal Activity Weight Bearing Status: Full weight bearing Home Medications: Medications to take at Discharge Rasagiline Mesylate [Azilect] 1 mg PO DAILY 03/17/13 Nuedexta 20/10 1 tab PO DAILY 03/18/13 Carbidopa/Levodopa [Sinemet Cr 25-100 Tablet] 1.5 tab PO BID 01/15/15 morphine SR tablet [Ms Contin] 15 mg PO BID 01/15/15 Carbidopa/Levodopa/Entacapone [Stalevo 150 Tablet] 1 ea PO BID 05/21/16 Ondansetron [Zofran Odt] 4 mg PO Q8H PRN PRN #10 tablet 11/15/17 Clonazepam 1 mg PO QHS 03/04/19 Dulaglutide [Trulicity] 0.75 mg SQ QWEEK 03/04/19 Escitalopram Oxalate [Lexapro] 10 mg PO DAILY 03/04/19 Esomeprazole Mag Trihydrate [Nexium] 40 mg PO DAILY 03/04/19 Gabapentin 900 mg PO BID 03/04/19 Glimepiride 4 mg PO DAILY 03/18/19 Oxycodone HCl/Acetaminophen [Percocet 5-325] 1 tab PO BID 03/18/19 Methotrexate Sodium [Methotrexate] 25 mg SQ SA 08/16/19 Propranolol HCl 60 mg PO BID 08/16/19 Tizanidine HCl [Zanaflex] 4 mg PO QHS 08/16/19 Primary Care Physician: Clemente Randhawa MD [Primary Care Provider] - Please follow up with your Primary Care Physician in: in 5-7 days Disposition: Home Minutes spent on discharge:: 31 Patient Condition:: Stable Medical Necessity - Tobacco Use Smoking Status: Never smoker Meaningful Use Info Meaningful Use Diagnoses (Choose all that apply): None applicable Inpatient E&M: [id number] [facility]
== END 2019-08-17 17:15 | disposition home or self-care (01) | DRG 315 ==
LOC: ED 21:51 → ICU 22:15 → MS3 08-18 07:16
PROVIDERS: Admitting Provider Hospitalist; Emergency Provider Emergency Medicine; PCP Family Medicine; Visit Provider Internal Medicine
DX: I95.9 Hypotension, unspecified (principal); E87.2 Acidosis; G20 Parkinson's disease; M32.9 Systemic lupus erythematosus, unspecified; E11.65 Type 2 diabetes mellitus with hyperglycemia; E11.40 Type 2 diabetes mellitus with diabetic neuropathy, unspecified; E66.9 Obesity, unspecified; Z23 Encounter for immunization; Z68.30 Body mass index [BMI] 30.0-30.9, adult; Z90.49 Acquired absence of other specified parts of digestive tract; Z79.84 Long term (current) use of oral hypoglycemic drugs; Z90.710 Acquired absence of both cervix and uterus
CPT/HCPCS: 80048; 80076; 81001; 82533; 82962; 83605; 84443; 85025; 87040; 93005; 97802; 99285; G0008; J7030; 90686; A4216; J2405

== ENCOUNTER → 2019-08-25 12:32 | Outpatient (CLI) | payer MEDICARE, MEDICAID, SELFPAY ==
[2019-08-16 23:14] VITALS: BMI 30.5
[2019-08-25 15:36] LABS: Erythrocyte Sedimentation Rate 8 mm/hr (0-30)
[2019-08-25 15:39] LABS: PTHIN 19.9 pg/mL (18.4-80.1)
[2019-08-25 15:48] LABS: Anion Gap 8 (5-15); BUN 9 mg/dL (7-18); BUN/Creat Ratio 11.3 RATIO (10-20); CPK Total, Creatine Kinase 46 U/L (26-192); CRP 4.76 mg/L (0.0-3.0); Calcium,Total 9.7 mg/dL (8.5-10.1); Chloride 96 mmol/L (98-107); EST Glomerular Filtration Rate 79 mL/min (>60); Est Glom Filt Rate - Afr Amer 95 mL/min (>60); Glucose 242 mg/dL (74-106); Magnesium 1.8 mg/dL (1.6-2.6); Potassium 3.9 mmol/L (3.5-5.1); Sodium Level 135 mmol/L (136-145)
[2019-08-25 15:57] LABS: Lactic Acid 4.1 mmol/L (0.4-1.9)
[2019-08-25 16:55] LABS: Reflex Lactate? Y
== END ==
PROVIDERS: PCP Family Medicine; Referring Provider Family Medicine; Visit Provider Family Medicine
DX: E83.51 Hypocalcemia (principal); R79.89 Other specified abnormal findings of blood chemistry; R76.8 Other specified abnormal immunological findings in serum
CPT/HCPCS: 36415; 80048; 82330; 82550; 83605; 83735; 83970; 85652; 86140

== ENCOUNTER 2019-09-06 11:08 | Emergency (ER) | payer MEDICARE, MEDICAID, SELFPAY ==
[2019-08-16 23:14] VITALS: BMI 30.5
[2019-09-06] VITALS (7 sets, daily range): BP systolic 130–152; BP diastolic 83–101; PULSE 94–120; RESP 12–20; TEMP 37.1–37.2; O2SAT 96–98; BMI 29.9
--- NOTE | 2019-09-06 11:17 | EKG12_ITS ---
Test Reason : OVERDOSE Blood Pressure : / mmHG Vent. Rate : 088 BPM Atrial Rate : 088 BPM P-R Int : 156 ms QRS Dur : 084 ms QT Int : 404 ms P-R-T Axes : 053 030 056 degrees QTc Int : 488 ms Normal sinus rhythm Prolonged QT Abnormal ECG Confirmed by FRAN CORBETT, CHUCK ([id number]), editor producer ANALY CHURCHILL ([id number]) on 09/09/2019 1:08:10 PM Referred By: HERIBERTO Confirmed By:CHUCK PETERS MD
--- NOTE | 2019-09-06 11:36 | ED.VIS.GEN ---
History of Present Illness Chief Complaint: Overdose Informant: Patient Onset: Today Narrative: Patient presents with intentional ingestion of Phenergan of 12.5 mg tabs 2 hours prior to arrival. Reports took 20-25 tabs. She brought a list there she had this filled 5 days ago 30 tabs by PCP office. She states she was nauseated afterwards. However feels okay now. She states she was not trying to hurt herself. However when asked, she states she does not know why she took them. She states she is not more stressed than normal. She states she has not hurt herself in the past. She denies any psychiatric history however from records does seem to be on Lexapro. Denies alcohol and illicit drug use. Denies any homicidal ideations. She cannot tell me her medications what she takes them for. No chest pains or shortness of breath. Prior similar symptoms: No Past Medical History - Allergies and Home Meds Allergies/Adverse Reactions: Allergies indomethacin [From Indocin] Allergy (Verified 09/06/19 11:09) Rash indomethacin sodium [From Indocin] Allergy (Verified 09/06/19 11:09) Rash Penicillins Allergy (Verified 09/06/19 11:09) Rash clarithromycin [From Biaxin] Adverse Reaction (Verified 09/06/19 11:09) Diarrhea Primary Care Physician: Clemente Randhawa MD [Primary Care Provider] - Past Medical History: - - Hypertension, hyperlipidemia, diabetes, lupus, sleep apnea Surgical History: cholecystectomy, hysterectomy Smoking Status: Never smoker - Family History Maternal Family History: Family History (Last Reviewed 08/16/19 @ 23:[address] Mason Stone MD) Brother Heart disease Mother Osteoarthritis Family History: Reports: No pertinent history Review of Systems General: Denies: Chills, Fever, Sweats Eyes: Denies: Visual changes - bilaterally, Diplopia ENT: Denies: Rhinorrhea, Sore throat Cardiovascular: Denies: Chest pain, Palpitations Respiratory: Denies: Dyspnea, Cough, Dyspnea on exertion Gastrointestinal: Denies: Abdominal pain, Nausea, Vomiting, Diarrhea, Melena, Hematochezia Genitourinary: Denies: Dysuria, Hematuria, Frequency Musculoskeletal: Denies: Back pain, Extremity Pain Skin: Denies: Rash, Wounds Neurological: Denies: Headache, Weakness, Numbness Psych: Denies: Suicidal thoughts, Suicidal ideations Physical Exam Vital Signs/Narrative: Vital Signs Temp Pulse Resp BP Pulse Ox 09/06/19 11:10 98.8 F 94 16 152/101 H 97 Inital Vital Signs reviewed: Yes General: Well nourished, Well developed, No Acute Distress Head: Normocephalic, Atraumatic Eyes: Perrl, EOMI ENT: Moist mucous membranes, No rhinorrhea Neck: Supple, Nontender Cardiovascular: Regular rate, Regular rhythm, No murmurs Respiratory: No distress, CTA bilaterally, Chest nontender Abdomen: Soft, Nontender, Nondistended, Normal bowel sounds Back: Nontender, Normal Inspection Extremities: Nontender, No edema Skin: Normal color, No rash Neurological: Alert, Cranial nerves II-XII grossly intact, Normal Strength, Normal Sensation, - - To person and place Psychological: - - Flat affect Diagnostic/Tx/Re-eval Abnormal Lab Results 09/06/19 09/06/19 09/06/19 11:30 11:30 11:30 WBC 11.5 H RBC 3.84 L Hgb 12.5 Hct 37.2 MCV 96.9 MCH 32.6 H MCHC 33.6 RDW Std Deviation 46.5 H RDW Coeff of Arben 13.2 Plt Count 214 MPV 11.5 Immature Gran % (Auto) 0.400 Neut % (Auto) 79.1 H Lymph % (Auto) 14.4 L Isabella % (Auto) 5.5 Eos % (Auto) 0.3 Baso % (Auto) 0.3 Absolute Neuts (auto) 9.1 H Absolute Lymphs (auto) 1.65 Nucleated RBC % 0 Sodium 137 Potassium 4.1 Chloride 99 Carbon Dioxide 31.0 Anion Gap 7 BUN 12 Creatinine 0.77 Estim Creat Clear Calc 77.44 Est GFR (MDRD) Af Amer 99 Est GFR (MDRD) Non-Af 81 BUN/Creatinine Ratio 15.5 Glucose 245 H Calcium 9.5 Magnesium 1.8 Salicylates 2.0 L Urine Opiates Screen Urine Methadone Screen Acetaminophen < 2.0 L Ur Barbiturates Screen Ur Phencyclidine Scrn Ur Amphetamines Screen U Methamphetamin-MDMA U Benzodiazepines Scrn Urine Cocaine Screen U Cannabinoids Screen Ur Drug Screen Comment Ethyl Alcohol 4.0 09/06/19 12:30 WBC RBC Hgb Hct MCV MCH MCHC RDW Std Deviation RDW Coeff of Arben Plt Count MPV Immature Gran % (Auto) Neut % (Auto) Lymph % (Auto) Isabella % (Auto) Eos % (Auto) Baso % (Auto) Absolute Neuts (auto) Absolute Lymphs (auto) Nucleated RBC % Sodium Potassium Chloride Carbon Dioxide Anion Gap BUN Creatinine Estim Creat Clear Calc Est GFR (MDRD) Af Amer Est GFR (MDRD) Non-Af BUN/Creatinine Ratio Glucose Calcium Magnesium Salicylates Urine Opiates Screen POSITIVE H Urine Methadone Screen NEGATIVE Acetaminophen Ur Barbiturates Screen NEGATIVE Ur Phencyclidine Scrn NEGATIVE Ur Amphetamines Screen NEGATIVE U Methamphetamin-MDMA NEGATIVE U Benzodiazepines Scrn NEGATIVE Urine Cocaine Screen NEGATIVE U Cannabinoids Screen NEGATIVE Ur Drug Screen Comment Ethyl Alcohol - EKG Initial EKG Interpretation: Sinus Rhythm - Sinus rate of 88, no ST or T wave changes. QTc is slightly prolonged at 488. - Medical Decision Making Patient vital signs stable. EKG mild QT prolongation. I discussed with poison control, they agree recommended 4 to 6-hour monitoring. She remained stable. Medical clearance labs obtain normal except noted tox screen positive for opiates she does take Percocets with her history of lupus. Tylenol, aspirin, alcohol all negative. Patient is currently medically cleared. Patient is pink slipped due to intention no overdose with no clear understanding of why she did this. Has been confirmed that she has depression history. Pending evaluation for likely placement. ED Disposition - Plan for ED Patient: Disposition: Psychiatric Hospital or Unit Diagnosis: Intentional overdose of drug in tablet form, Depression Referrals: Clemente Randhawa MD [Primary Care Provider] -
[2019-09-06] MEDS: 0.9% Normal Saline 1,000 ML 150 ML IV (11:38)
[2019-09-06 11:41] LABS: Absolute Lymphocyte Count 1.65 X10^3/uL (0.83-4.51); Absolute Neutrophil Count 9.1 X10^3/uL (2.0-7.7); Basophil# 0.03 X10^3/uL; Basophil% 0.3 % (0-1); Eosinophil# 0.03 X10^3/uL; Eosinophils% 0.3 % (0-5); Hematocrit 37.2 % (37-47); Hemoglobin 12.5 g/dL (12.0-15.0); Lymphocyte # 1.65 X10^3/ul (4.0); Lymphocyte % 14.4 % (19-41); Mean Corp Hgb Conc 33.6 g/dL (32-36); Mean Corpuscular Hgb 32.6 pg (27.0-32.0); Mean Corpuscular Volume 96.9 fL (81-99); Mean Platelet Vol. 11.5 fl (6.2-12.0); Monocyte# 0.63 X10^3/uL; Monocyte% 5.5 % (0-10); NRBC Flagged by Analyzer 0 % (0-5); Neutrophil # 9.06 X10^3/uL (2.7-7.7); Neutrophil % 79.1 % (47-70); Platelet Count 214 K/mm3 (150-450); RBC Distribution Width CV 13.2 % (11.6-14.6); RBC Distribution Width SD 46.5 fl (35.1-43.9); Red Blood Count 3.84 M/mm3 (4.2-5.4); White Blood Count 11.5 K/mm3 (4.4-11.0)
[2019-09-06 11:54] LABS: Anion Gap 7 (5-15); BUN 12 mg/dL (7-18); BUN/Creat Ratio 15.5 RATIO (10-20); Calcium,Total 9.5 mg/dL (8.5-10.1); Chloride 99 mmol/L (98-107); Creatinine, Serum 0.77 mg/dL (0.55-1.02); EST Glomerular Filtration Rate 81 mL/min (>60); Est Glom Filt Rate - Afr Amer 99 mL/min (>60); Estimated Creatinine Clearance 77.44 ml/min; Glucose 245 mg/dL (74-106); Magnesium 1.8 mg/dL (1.6-2.6); Potassium 4.1 mmol/L (3.5-5.1); Sodium Level 137 mmol/L (136-145)
[2019-09-06 12:29] LABS: Acetaminophen (Tylenol) Level < 2.0 ug/mL (10.0-30.0)
[2019-09-06 13:00] LABS: Amphetamine Urine VISTA NEGATIVE (<1000 ng/mL); Barbiturate Urine VISTA NEGATIVE (< 200 ng/mL); Benzodiazepine Urine VISTA NEGATIVE (< 200 ng/mL); Cocaine Urine VISTA NEGATIVE (< 300 ng/mL); Ecstacy Urine VISTA NEGATIVE (< 500 ng/mL); Methadone Urine VISTA NEGATIVE (< 300 ng/mL); PCP Urine VISTA NEGATIVE (< 25 ng/mL); THC Urine VISTA NEGATIVE (< 50 ng/mL); Vista UDS pH Range 8
--- NOTE | 2019-09-06 15:30 | ED.RN ---
Addendum entered by Jessi Gonsales 09/06/19 16:14: TIME OF NOTE CHANGED TO 1300. Original Note: PT TOOK OUT OWN IV.
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
--- NOTE | 2019-09-06 15:39 | ED.RN ---
DUE TO THE CONCERN FROM THE PT'S FAMILY AND THE FACT THAT THE PT HID THE MEDICATION BOTTLE FROM HER FAMILY AFTER SHE TOOK THE PILLS, DR. AMAURI ROWE SLIPPED THE PT.
--- NOTE | 2019-09-06 16:44 | CM.ED ---
SOCIAL WORK REFERRAL FAXED AND CALLED TO [facility]. AWAITING ACCEPTANCE. Chepe BROWN, SOIL ANALYST, JACK WINDER.
--- NOTE | 2019-09-06 17:28 | CM.ED ---
SOCIAL WORK RECEIVED CALL FROM BRENDON WITH [facility]. ALL QUESTIONS ANSWERED. AWAITING ACCEPTANCE. Chepe BROWN, GRADUATE SCHOOL DEAN, ADDRESS CHANGE CLERK.
--- NOTE | 2019-09-06 17:36 | CM.ED ---
SOCIAL WORK RECEIVED CALL FROM BRENDON WITH [facility]. PATIENT ACCE[facility]ED BY [facility]. ELIZONDO [facility] NURSE TO CALL REPORT TO [facility]. STAFF DARIO. SOLO ECHOLS, TIE MAKER.
--- NOTE | 2019-09-06 18:32 | ED.RN ---
spoke with son WillieJEANNESara to make him aware that pt is being transferred to [facility]
--- NOTE | 2019-09-06 19:26 | ED.RN ---
report called to [facility]. Spoke with BRITTNEY Porras. All questions answered.
--- NOTE | 2019-09-06 20:15 | ED.RN ---
Addendum entered by Sarika Hutchison 09/06/19 21:24: Added information-pt denied head injury or pain to head/neck. Observer stated that patient slid out of bottom of bed onto floor. Original Note: pt was last put to bed with non skid footwear in place, bed in lowest position and bed rails up. pt observer called RN to room. When this RN walks into room pt was on floor laying on left side. This RN assisted pt back into bed. performed ROM to all extremities without complication. Pt denies pain. Notified Dr. Simms of incident. No new orders given.
--- NOTE | 2019-09-06 20:30 | ED.RN ---
This RN spoke to poison control who recommended follow up EKG. Notified Dr Simms and verbal order received for EKG.
--- NOTE | 2019-09-06 20:44 | EKG12_ITS ---
Test Reason : [facility] Blood Pressure : / mmHG Vent. Rate : 135 BPM Atrial Rate : 135 BPM P-R Int : 116 ms QRS Dur : 070 ms QT Int : 274 ms P-R-T Axes : 058 035 051 degrees QTc Int : 411 ms Poor data quality, interpretation may be adversely affected Sinus tachycardia Abnormal ECG Confirmed by FRAN CORBETT, CHUCK ([id number]), commercial production editor ANALY CHURCHILL ([id number]) on 09/09/2019 1:03:23 PM Referred By: MILLER Confirmed By:CHUCK PETERS MD
--- NOTE | 2019-09-07 14:24 | CM.ED ---
SOCIAL WORK RECEIVED CALL FROM PATIENT'S DAUGHTER WITH CONCERNS HAS NOT BEEN ABLE TO GET IN CONTACT WITH PATIENT. CALL TO LUISA WITH [place]. UPDATED ON FAMILY'S CONCERNS. PER LUISA, SOMEONE FROM [place] WILL BE IN CONTACT WITH PATIENT'S SON/HPOA TODAY. CALL TO PATIENT'S SON/HPOA, SIXTO OREILLY TO UPDATE ON ABOVE. Chepe BROWN, JOCKEY VALET, GUEST SERVICE HOST.
== END 2019-09-06 21:04 ==
PROVIDERS: Emergency Provider Emergency Medicine; PCP Family Medicine
DX: T42.6X2A Poisoning by other antiepileptic and sedative-hypnotic drugs, intentional self-harm, initial encounter (principal); F32.9 Major depressive disorder, single episode, unspecified; I10 Essential (primary) hypertension; E11.9 Type 2 diabetes mellitus without complications
CPT/HCPCS: 80048; 80307; 80320; 80329; 83735; 85025; 93005; 96360; 99285; J7030; A4216; G0480

== ENCOUNTER → 2020-02-22 08:34 | Outpatient (CLI) | payer MEDICARE, MEDICAID, SELFPAY ==
[2019-09-06 11:10] VITALS: BMI 29.9
[2020-02-22 10:39] LABS: Absolute Lymphocyte Count 2.53 X10^3/uL (0.83-4.51); Basophil# 0.04 X10^3/uL; Basophil% 0.6 % (0-1); Eosinophil# 0.12 X10^3/uL; Eosinophils% 1.9 % (0-5); Hematocrit 43.7 % (37-47); Hemoglobin 14.4 g/dL (12.0-15.0); Lymphocyte # 2.53 X10^3/ul (4.0); Lymphocyte % 40.2 % (19-41); Mean Corpuscular Hgb 31.9 pg (27.0-32.0); Mean Corpuscular Volume 96.7 fL (81-99); Mean Platelet Vol. 12.4 fl (6.2-12.0); Monocyte# 0.61 X10^3/uL; Monocyte% 9.7 % (0-10); NRBC Flagged by Analyzer 0 % (0-5); Neutrophil # 2.96 X10^3/uL (2.7-7.7); Platelet Count 202 K/mm3 (150-450); RBC Distribution Width CV 13.5 % (11.6-14.6); RBC Distribution Width SD 47.8 fl (35.1-43.9); Red Blood Count 4.52 M/mm3 (4.2-5.4); White Blood Count 6.3 K/mm3 (4.4-11.0)
[2020-02-22 10:58] LABS: ALB/GLOB Ratio 1.1 RATIO (0.9-2.4); AST(SGOT) 29 U/L (15-37); Alanine Aminotransfer ALT/SGPT 31 U/L (13-56); Alkaline Phosphatase 161 U/L (45-117); Anion Gap 5 (5-15); BUN 8 mg/dL (7-18); BUN/Creat Ratio 11.7 RATIO (10-20); Chloride 101 mmol/L (98-107); Cholesterol 232 mg/dL (200); Creatinine, Serum 0.68 mg/dL (0.55-1.02); EST Glomerular Filtration Rate 94 mL/min (>60); Est Glom Filt Rate - Afr Amer 114 mL/min (>60); Globulin 3.8 g/dL (2.2-4.2); Glucose 265 mg/dL (74-106); High Density Lipoprotein 35 mg/dL; Potassium 3.8 mmol/L (3.5-5.1); Protein, Total 7.8 g/dL (6.4-8.2); Sodium Level 138 mmol/L (136-145); Triglycerides 364 mg/dL; Very Low Density Lipoprotein 73 mg/dL (5-40)
== END ==
PROVIDERS: PCP Family Medicine
DX: M05.741 Rheumatoid arthritis with rheumatoid factor of right hand without organ or systems involvement (principal); M05.742 Rheumatoid arthritis with rheumatoid factor of left hand without organ or systems involvement; E11.9 Type 2 diabetes mellitus without complications; Z79.899 Other long term (current) drug therapy
CPT/HCPCS: 36415; 80053; 80061; 85025

== ENCOUNTER → 2020-05-02 12:58 | Outpatient (CLI) | payer MEDICARE, MEDICAID, SELFPAY ==
[2019-09-06 11:10] VITALS: BMI 29.9
--- NOTE | 2020-05-02 13:02 | RAD_ITS ---
STUDY: X-RAY - LUMBAR SPINE REASON FOR EXAM: Female, 60 years old. spinal stenosis of lumbar region without neurogenic claudication TECHNIQUE: 4 view(s) of the lumbar spine were obtained. COMPARISON: 11/06/2016 FINDINGS: Normal lumbar lordosis. There is no substantial scoliosis. There is a normal alignment of the vertebrae. Stable postoperative changes at L5-S1. Multilevel spondylosis. Moderate narrowing of the disks at L1-L2 and L2-L3, stable. Limited range of motion especially with flexion. No subluxations. RAD/L/S Spine Bending Flex/Ext IMPRESSION: Postoperative and degenerative change. No acute abnormalities. No subluxations or malalignments. Electronically Signed: Alpesh Felix MD at 20:56 EST , Service support ,
--- NOTE | 2020-05-02 13:03 | RAD_ITS ---
STUDY: X-RAY - CERVICAL SPINE REASON FOR EXAM: Female, 60 years old. cervicalgia TECHNIQUE: 7 view(s) of the cervical spine were obtained with flexion and extension. COMPARISON: 09/18/15 FINDINGS: There are degenerative changes of the anterior atlantoaxial articulation. Normal odontoid process. There is straightening of the normal cervical lordosis. There is multi-level endplate spondylosis. There is multi-level degenerative disc disease with multilevel disc space narrowing. There is multi-level osseous foraminal stenosis. There is very limited flexion and extension, with no subluxations. The soft tissue structures are unremarkable. There is no demonstrated fracture of the cervical spine. RAD/Cerv Spine Obl/Flex/Ext Comp IMPRESSION: Degenerative changes, having progressed since prior exam. No acute abnormalities. Significantly decreased range of motion. Electronically Signed: Alpesh Felix MD at 20:06 EST , Service support ,
== END ==
PROVIDERS: PCP Family Medicine; Referring Provider Psychiatry & Neurology Neurology; Visit Provider Psychiatry & Neurology Neurology
DX: M54.2 Cervicalgia (principal); M48.061 Spinal stenosis, lumbar region without neurogenic claudication
CPT/HCPCS: 72052; 72120

== ENCOUNTER → 2020-10-23 15:08 | Outpatient (CLI) | payer MEDICARE, MEDICAID, SELFPAY ==
[2019-09-06 11:10] VITALS: BMI 29.9
--- NOTE | 2020-10-23 15:15 | RAD_ITS ---
STUDY: X-RAY - PELVIS AND BILATERAL HIPS REASON FOR EXAM: Female, 60 years old. PAIN TECHNIQUE: 5 views of the hips and pelvis. COMPARISON: 02/05/2017. FINDINGS: No acute fracture, dislocation or osseous destruction. Moderate bilateral hip osteoarthritis. Mild pubic symphysis arthrosis. Mild sacroiliac arthrosis. Pelvic enthesophytes. Moderate lumbar spine arthrosis with surgical hardware. No significant soft tissue swelling. RAD/Hips B/L min 2 views w/ Pelvis IMPRESSION: Bilateral hips and pelvis intact Moderate degenerative changes, as above Electronically Signed: Daniele Sanchez DO at 9:26 EDT Tel , Service support ,
[2020-10-23 18:08] LABS: Absolute Lymphocyte Count 2.95 X10^3/uL (0.83-4.51); Absolute Neutrophil Count 4.4 X10^3/uL (2.0-7.7); Basophil# 0.06 X10^3/uL; Basophil% 0.7 % (0-1); Eosinophils% 1.2 % (0-5); Hematocrit 43.6 % (37-47); Hemoglobin 14.3 g/dL (12.0-15.0); Lymphocyte # 2.95 X10^3/ul (0.83-4.51); Lymphocyte % 36.5 % (19-41); Mean Corp Hgb Conc 32.8 g/dL (32-36); Mean Corpuscular Hgb 30.1 pg (27.0-32.0); Mean Corpuscular Volume 91.8 fL (81-99); Mean Platelet Vol. 12.2 fl (6.2-12.0); Monocyte# 0.58 X10^3/uL; Monocyte% 7.2 % (0-10); NRBC Flagged by Analyzer 0 % (0-5); Neutrophil # 4.37 X10^3/uL (2.7-7.7); Neutrophil % 54.2 % (47-70); Platelet Count 236 K/mm3 (150-450); RBC Distribution Width CV 12.4 % (11.6-14.6); RBC Distribution Width SD 41.3 fl (35.1-43.9); Red Blood Count 4.75 M/mm3 (4.2-5.4); White Blood Count 8.1 K/mm3 (4.4-11.0)
[2020-10-23 18:29] LABS: ALB/GLOB Ratio 1.1 RATIO (0.9-2.4); AST(SGOT) 23 U/L (15-37); Alanine Aminotransfer ALT/SGPT 18 U/L (13-56); Albumin, Serum 4.1 g/dL (3.2-5.0); Alkaline Phosphatase 144 U/L (45-117); Anion Gap 9 (5-15); BUN 9 mg/dL (7-18); BUN/Creat Ratio 12.9 RATIO (10-20); Calcium,Total 9.5 mg/dL (8.5-10.1); Chloride 98 mmol/L (98-107); EST Glomerular Filtration Rate 91 mL/min (>60); Est Glom Filt Rate - Afr Amer 110 mL/min (>60); Globulin 3.8 g/dL (2.2-4.2); Glucose 291 mg/dL (74-106); Potassium 3.8 mmol/L (3.5-5.1); Protein, Total 7.9 g/dL (6.4-8.2); Sodium Level 137 mmol/L (136-145)
== END ==
PROVIDERS: PCP Family Medicine
DX: M25.551 Pain in right hip (principal); M25.552 Pain in left hip; M05.741 Rheumatoid arthritis with rheumatoid factor of right hand without organ or systems involvement; M05.742 Rheumatoid arthritis with rheumatoid factor of left hand without organ or systems involvement; Z79.899 Other long term (current) drug therapy
CPT/HCPCS: 36415; 73521; 80053; 85025

== ENCOUNTER → 2020-10-26 15:36 | Outpatient (CLI) | payer MEDICARE, MEDICAID, SELFPAY ==
[2019-09-06 11:10] VITALS: BMI 29.9
[2020-10-26 17:52] LABS: Absolute Lymphocyte Count 3.17 X10^3/uL (0.83-4.51); Absolute Neutrophil Count 4.2 X10^3/uL (2.0-7.7); Basophil# 0.04 X10^3/uL; Basophil% 0.5 % (0-1); Eosinophil# 0.13 X10^3/uL; Eosinophils% 1.6 % (0-5); Hematocrit 43.5 % (37-47); Hemoglobin 14.1 g/dL (12.0-15.0); Lymphocyte # 3.17 X10^3/ul (0.83-4.51); Lymphocyte % 38.6 % (19-41); Mean Corp Hgb Conc 32.4 g/dL (32-36); Mean Corpuscular Hgb 29.9 pg (27.0-32.0); Mean Corpuscular Volume 92.2 fL (81-99); Mean Platelet Vol. 12.2 fl (6.2-12.0); Monocyte# 0.61 X10^3/uL; Monocyte% 7.4 % (0-10); NRBC Flagged by Analyzer 0 % (0-5); Neutrophil # 4.24 X10^3/uL (2.7-7.7); Neutrophil % 51.7 % (47-70); Platelet Count 209 K/mm3 (150-450); RBC Distribution Width CV 12.5 % (11.6-14.6); RBC Distribution Width SD 42.9 fl (35.1-43.9); Red Blood Count 4.72 M/mm3 (4.2-5.4); White Blood Count 8.2 K/mm3 (4.4-11.0)
[2020-10-26 18:14] LABS: Anion Gap 6 (5-15); BUN 8 mg/dL (7-18); BUN/Creat Ratio 11.7 RATIO (10-20); Calcium,Total 9.3 mg/dL (8.5-10.1); Chloride 103 mmol/L (98-107); Creatinine, Serum 0.68 mg/dL (0.55-1.02); EST Glomerular Filtration Rate 94 mL/min (>60); Est Glom Filt Rate - Afr Amer 114 mL/min (>60); Glucose 281 mg/dL (74-106); Potassium 4.1 mmol/L (3.5-5.1); Sodium Level 137 mmol/L (136-145)
== END ==
PROVIDERS: PCP Family Medicine; Referring Provider Family Medicine; Visit Provider Nurse Practitioner Family
DX: R21 Rash and other nonspecific skin eruption (principal)
CPT/HCPCS: 36415; 80048; 85025

== ENCOUNTER → 2021-01-05 12:11 | Outpatient (CLI) | payer MEDICARE, MEDICAID, SELFPAY ==
[2019-09-06 11:10] VITALS: BMI 29.9
[2021-01-05 15:02] LABS: Hematocrit 42.4 % (37-47); Hemoglobin 13.8 g/dL (12.0-15.0); Mean Corp Hgb Conc 32.5 g/dL (32-36); Mean Corpuscular Hgb 30.1 pg (27.0-32.0); Mean Corpuscular Volume 92.4 fL (81-99); Mean Platelet Vol. 12.9 fl (6.2-12.0); Platelet Count 205 K/mm3 (150-450); RBC Distribution Width CV 12.4 % (11.6-14.6); RBC Distribution Width SD 42.1 fl (35.1-43.9); Red Blood Count 4.59 M/mm3 (4.2-5.4); White Blood Count 5.7 K/mm3 (4.4-11.0)
[2021-01-05 15:19] LABS: Vitamin B12 392 pg/mL (211-911)
[2021-01-05 15:23] LABS: ALB/GLOB Ratio 1.1 RATIO (0.9-2.4); AST(SGOT) 20 U/L (15-37); Alanine Aminotransfer ALT/SGPT 18 U/L (13-56); Albumin, Serum 3.9 g/dL (3.2-5.0); Alkaline Phosphatase 122 U/L (45-117); Anion Gap 9 (5-15); BUN 6 mg/dL (7-18); BUN/Creat Ratio 8.4 RATIO (10-20); Chloride 100 mmol/L (98-107); Cholesterol 125 mg/dL (200); Creatinine, Serum 0.71 mg/dL (0.55-1.02); EST Glomerular Filtration Rate 89 mL/min (>60); Est Glom Filt Rate - Afr Amer 108 mL/min (>60); Globulin 3.6 g/dL (2.2-4.2); Glucose 307 mg/dL (74-106); High Density Lipoprotein 36 mg/dL; Potassium 3.8 mmol/L (3.5-5.1); Protein, Total 7.5 g/dL (6.4-8.2); Sodium Level 136 mmol/L (136-145); Thyroid Stim Hormone (TSH) 0.62 uIU/mL (0.358-3.74); Triglycerides 248 mg/dL; Very Low Density Lipoprotein 50 mg/dL (5-40)
== END ==
PROVIDERS: PCP Family Medicine; Referring Provider Family Medicine; Visit Provider Family Medicine
DX: E11.9 Type 2 diabetes mellitus without complications (principal)
CPT/HCPCS: 36415; 80053; 80061; 82607; 84443; 85027

== ENCOUNTER 2021-04-24 16:44 | Observation (INO) | payer MEDICARE, MEDICAID, SELFPAY ==
[2021-04-24] VITALS (10 sets, daily range): BP systolic 135–166; BP diastolic 79–106; PULSE 67–80; RESP 12–17; TEMP 35.9–36.6; O2SAT 94–98; BMI 30.2; BMI 31.0
--- NOTE | 2021-04-24 16:58 | CT_ITS ---
STUDY: CT BRAIN WITHOUT CONTRAST REASON FOR EXAM: Female, 60 years old. headache RADIATION DOSAGE (If Supplied By Facility): CTDIvol = ( 44.99 ) mGy, DLP = ( 796.11 ) mGycm TECHNIQUE: Transaxial CT imaging of the brain was performed without administration of intravenous contrast material. Individualized dose optimization techniques were used for this CT. COMPARISON: 03/18/2019 report only FINDINGS: Normal soft tissue structures. Normal calvarium. Normal size ventricles and extra-axial spaces for the patient''s age. Normal white matter tracts of the cerebral hemispheres. Probable old infarct in the anterior limb of the left internal capsule with mild porencephalic dilatation of the frontal horn of the left lateral ventricle. Normal brainstem. Normal cerebellum. Small hypoattenuated density in the medial left temporal lobe likely old infarct or prominent perivascular space There is no intracranial hemorrhage. There are no findings of an acute ischemic infarction. Normal visualized paranasal sinuses. CT/Brain/Head without Contrast IMPRESSION: Probable old left lacunar infarct. No acute bleed. If concern for acute infarct MRI recommended. Electronically Signed: Tavon Dubon MD at 17:32 EST , Service support ,
--- NOTE | 2021-04-24 16:58 | EKG12_ITS ---
Test Reason : Blood Pressure : / mmHG Vent. Rate : 074 BPM Atrial Rate : 074 BPM P-R Int : 166 ms QRS Dur : 084 ms QT Int : 412 ms P-R-T Axes : 020 025 044 degrees QTc Int : 457 ms Normal sinus rhythm Normal ECG Confirmed by ARNULFO CORBETT, DEREK ([id number]), editor greeting card [employer]ORENCE [employer] ([id number]) on 04/26/2021 8:47:00 AM Referred By: ARIANE Confirmed By:DEREK ARREDONDO MD
--- NOTE | 2021-04-24 17:19 | ED.VIS.CHEST ---
HPI History of Present Illness Chief Complaint: Chest Pain Narrative Narrative: 60-year-old female presented with left-sided chest pain that radiates up into the neck and the left side of her shoulder. She states this started about an hour and a half prior to arrival. She states when she closes her eyes she sees a lot of colors. She looked at herself in the mirror and thought her eye might be drooping on the left however her daughter states it is not. Her daughter does state that she is confused and she has been hallucinating a little bit and this is what she does when she gets septic. She also feels as if her mom was slurring her speech but this is not occurring currently. Apparently the last 2 time she was admitted for septic shock they found no source of the infection and patient was empirically treated with antibiotics. Patient has not had any fevers or chills. No nausea or vomiting. I specifically asked her if the weakness in the left side of her arm was weakness or if it was the radiation of the pain into her left arm and she states it was the radiation of pain. She states she does not have any known cardiac history. [facility] Medical History (Updated 04/24/21 @ 20:[address] Mason Stone MD) Arachnoiditis Diabetes Hypertension Lupus Parkinson disease Sleep apnea Home Medications rasagiline 1 mg PO DAILY 03/17/13 [History Last Taken 03/18/19] Nuedexta 20/10 1 tab PO DAILY 03/18/13 [History Last Taken 03/18/19] morphine 15 mg PO BID 01/15/15 [History Last Taken 03/18/19] clonazepam 1 mg PO QHS 03/04/19 [History Last Taken 03/17/19] dulaglutide 0.75 mg SQ QWEEK 03/04/19 [History Last Taken 03/13/19] escitalopram oxalate 10 mg PO DAILY 03/04/19 [History Last Taken 03/18/19] esomeprazole magnesium 40 mg PO DAILY 03/04/19 [History Last Taken 03/18/19] gabapentin 900 mg PO BID 03/04/19 [History Last Taken 03/18/19] glimepiride 4 mg PO DAILY 03/18/19 [History Last Taken 03/18/19] oxycodone-acetaminophen 1 tab PO BID 03/18/19 [History Last Taken Unknown] methotrexate sodium 25 mg SQ SA 08/16/19 [History Last Taken Unknown] propranolol 60 mg PO BID 08/16/19 [History Last Taken Unknown] tizanidine 4 mg PO QHS 08/16/19 [History Last Taken Unknown] carbidopa-levodopa 1 tab PO TID 09/06/19 [History Last Taken Unknown] Allergy/AdvReac Type Severity Reaction Status Date / Time indomethacin [From Indocin] Allergy Rash Verified 04/24/21 16:52 indomethacin sodium Allergy Rash Verified 04/24/21 16:52 [From Indocin] Penicillins Allergy Rash Verified 04/24/21 16:52 clarithromycin [From Biaxin] AdvReac Diarrhea Verified 04/24/21 16:52 Family History Brother Heart disease Mother Osteoarthritis Surgical History H/O: hysterectomy History of back surgery History of cholecystectomy History of knee surgery S/P cholecystectomy S/P left knee surgery Status post arthroscopy of hip Status post carpal tunnel release Social History (Updated 10/02/18 @ 13:07 by Amairani Smith) Smoking Status: Never smoker alcohol intake: never ROS ROS ED Constitutional Constitutional ED: Denies fever(s) or sweats Eyes Eyes: Denies blurry vision or change in vision ENT ENT ED: Denies rhinorrhea or sore throat Cardiovascular Cardiovascular: Reports chest pain Respiratory/Chest Respiratory/Chest: Denies cough or dyspnea Gastrointestinal Gastrointestinal: Denies abdominal pain, nausea or vomiting Genitourinary Genitourinary ED: Denies dysuria or hematuria Musculoskeletal Musculoskeletal: Denies arthralgias or myalgias Integumentary Denies rash Neurologic Neurologic: Reports headache(s); Denies paresthesias EXAM Physical Exam Const Vital Signs: 04/24/21 16:44 04/24/21 17:31 04/24/21 18:00 Temperature 97.6 F L Temperature Source Temporal Pulse Rate 77 69 Respiratory Rate 16 14 Respiratory Effort Normal Short of Breath Blood Pressure 166/104 H 148/92 H Blood Pressure Mean 124 110 Pulse Ox 96 94 Oxygen Delivery Method Room Air Room Air 04/24/21 19:00 04/24/21 19:29 04/24/21 19:57 Temperature Temperature Source Pulse Rate 67 74 73 Respiratory Rate 12 16 17 Respiratory Effort Blood Pressure 143/86 H 136/79 H 145/101 H Blood Pressure Mean 105 98 115 Pulse Ox 98 97 98 Oxygen Delivery Method Room Air Room Air 04/24/21 20:18 Temperature Temperature Source Pulse Rate Respiratory Rate 17 Respiratory Effort Blood Pressure Blood Pressure Mean Pulse Ox Oxygen Delivery Method Positive well nourished General Appearance ED: NAD; Negative for pallor HEENT Reports moist mucous membranes normocephalic and atraumatic Eyes PERRL and EOMs intact bilaterally Resp normal respiratory effort Effort and Inspection: respiratory distress Cardio regular rate and regular rhythm Neuro oriented x3, CN's II-XII intact bilaterally and no sensory deficits noted Neuro Narrative: NIH = O Sensorium / Orientation: awake and alert Motor Exam: strength 5/5 throughout Psych mental status grossly normal Skin no rashes or lesions noted General Skin Exam: Negative for jaundice or pallor Heart Score History: Slightly/Non-Suspicious ECG: Normal Age: >45 - <65 years Risk Factors: 1 or 2 Risk Factors Troponin: </= Normal Limit Score: 2 MDM MDM MDM Narrative Medical decision making narrative: 60-year-old female presenting with chest pain. She was also concerned that she might of had an eyelid droop however when she went to look she did not see this. Her daughter cannot confirm this have occurred. She does have concerned that her mom sounded like she was slurring her speech. She has no history of TIA or stroke in the past that she knows of. Patient states that she is also been having chest pain for the last hour and half prior to arrival. Her EKG on my interpretation shows a normal sinus rhythm with a ventricular rate of 74 bpm without ischemic change. Chest x-ray my interpretation is no acute cardiopulmonary process. Patient's blood work shows that she has no leukocytosis. Her hemoglobin hematocrit are stable. Renal function electrolytes are normal. Troponin initially is 4. D-dimer was elevated at 0.[address] she had a CT of the chest which shows no pulmonary emboli. The radiologist does read prominent interstitial markings in the lower lobe. Patient is not having any respiratory symptoms. Her second troponin returned at 12. I did obtain a CT of the brain which shows a probable old lacunar infarct. Giving her symptoms which could be TIA and an old stroke which she is not aware she had I feel the patient would be best suited to be admitted for an MRI. She was given aspirin on admission. Patient was discussed with the hospitalist. Impression: 1. Chest pain 2. TIA Lab Data Attestation: I reviewed the patient's lab results. Labs: Laboratory Results - last 24 hr 04/24/21 04/24/21 04/24/21 17:06 17:06 17:06 WBC 9.7 RBC 4.80 Hgb 14.6 Hct 43.3 MCV 90.2 MCH 30.4 MCHC 33.7 RDW Std Deviation 39.8 RDW Coeff of Arben 12.0 Plt Count 249 MPV 11.9 Immature Gran % (Auto) 0.400 Neut % (Auto) 61.8 Lymph % (Auto) 29.1 Millard % (Auto) 7.0 Eos % (Auto) 0.9 Baso % (Auto) 0.8 Absolute Neuts (auto) 6.0 Absolute Lymphs (auto) 2.83 Nucleated RBC % 0 D-Dimer Quant (PE/DVT) 0.54 H* Sodium 134 L Potassium 4.5 Chloride 99 Carbon Dioxide 26.0 Anion Gap 9 BUN 9 Creatinine 0.79 Estim Creat Clear Calc 74.56 Est GFR (MDRD) Af Amer 96 Est GFR (MDRD) Non-Af 79 BUN/Creatinine Ratio 11.4 Glucose 395 H Calcium 9.2 Troponin I High Sens 4 04/24/21 19:21 WBC RBC Hgb Hct MCV MCH MCHC RDW Std Deviation RDW Coeff of Arben Plt Count MPV Immature Gran % (Auto) Neut % (Auto) Lymph % (Auto) Millard % (Auto) Eos % (Auto) Baso % (Auto) Absolute Neuts (auto) Absolute Lymphs (auto) Nucleated RBC % D-Dimer Quant (PE/DVT) Sodium Potassium Chloride Carbon Dioxide Anion Gap BUN Creatinine Estim Creat Clear Calc Est GFR (MDRD) Af Amer Est GFR (MDRD) Non-Af BUN/Creatinine Ratio Glucose Calcium Troponin I High Sens 12 Radiography Diagnostic Testing: Clinical Impression(s) from Imaging Studies Brain CT 04/24/21 16:58 IMPRESSION: Probable old left lacunar infarct. No acute bleed. If concern for acute infarct MRI recommended. Electronically Signed: Tavon Dubon MD at 17:32 EST , Service support , Chest X-Ray 04/24/21 17:20 IMPRESSION: No acute cardiopulmonary pathology Electronically Signed: Tavon Dubon MD at 17:33 EST , Service support , Chest CTA 04/24/21 17:44 IMPRESSION: Mild prominence of interstitial markings more pronounced the lower lobes. No focal infiltration. No evidence for pulmonary embolus Electronically Signed: Tavon Dubon MD at 19:12 EST , Service support , Discharge Plan Triage Chief Complaint: Chest Pain ED Provider: Tim Atkins Dx/Rx/DC Orders Prescriptions: No Action rasagiline 1 MG tablet 1 mg PO DAILY RF: 0 Nuedexta 20/10 tablet 1 tab PO DAILY RF: 0 morphine 15 MG tablet 15 mg PO BID RF: 0 gabapentin 600 tablet 900 mg PO BID RF: 0 clonazepam 1 MG tablet 1 mg PO QHS RF: 0 esomeprazole magnesium 40 MG capsule 40 mg PO DAILY RF: 0 escitalopram oxalate 10 MG tablet 10 mg PO DAILY RF: 0 dulaglutide 0.75 MG/0.5 ML pen injector 0.75 mg SQ QWEEK RF: 0 glimepiride 4 tablet 4 mg PO DAILY RF: 0 oxycodone-acetaminophen 1 TABLET tablet 1 tab PO BID RF: 0 methotrexate sodium 25 MG/ML solution 25 mg SQ SA RF: 0 propranolol 20 MG tablet 60 mg PO BID RF: 0 tizanidine 4 MG capsule 4 mg PO QHS RF: 0 carbidopa-levodopa 25-100 mg tablet extended release 1 tab PO TID RF: 0 Primary Care Provider: Clemente Randhawa Referrals: Clemente Randhawa MD [Primary Care Provider] - Disposition Discharge Date/Time: 04/24/21 20:24
--- NOTE | 2021-04-24 17:20 | RAD_ITS ---
STUDY: X-RAY CHEST REASON FOR EXAM: Female, 60 years old. chest pain TECHNIQUE: AP portable COMPARISON: None. FINDINGS: The lungs are clear and expanded. There is no demonstrated pleural abnormality. Normal size heart. Normal mediastinum and ozzie. Normal visualized pulmonary arteries. Normal visualized aortic arch and descending thoracic aorta. Dorsal spine and shoulders demonstrate degenerative change. Normal visualized ribs and, clavicles. There is no demonstrated abnormality of the visualized soft tissue structures of the upper abdomen. RAD/Chest 1 View (Portable) IMPRESSION: No acute cardiopulmonary pathology Electronically Signed: Tvaon Dubon MD at 17:33 EST , Service support ,
[2021-04-24 17:29] LABS: Absolute Lymphocyte Count 2.83 X10^3/uL (0.83-4.51); Basophil# 0.08 X10^3/uL; Basophil% 0.8 % (0-1); Eosinophil# 0.09 X10^3/uL; Eosinophils% 0.9 % (0-5); Hematocrit 43.3 % (37-47); Hemoglobin 14.6 g/dL (12.0-15.0); Lymphocyte # 2.83 X10^3/ul (0.83-4.51); Lymphocyte % 29.1 % (19-41); Mean Corp Hgb Conc 33.7 g/dL (32-36); Mean Corpuscular Hgb 30.4 pg (27.0-32.0); Mean Corpuscular Volume 90.2 fL (81-99); Mean Platelet Vol. 11.9 fl (6.2-12.0); Monocyte# 0.68 X10^3/uL; NRBC Flagged by Analyzer 0 % (0-5); Neutrophil # 6.02 X10^3/uL (2.7-7.7); Neutrophil % 61.8 % (47-70); Platelet Count 249 K/mm3 (150-450); RBC Distribution Width SD 39.8 fl (35.1-43.9); White Blood Count 9.7 K/mm3 (4.4-11.0)
--- NOTE | 2021-04-24 17:34 | ED.RN ---
State has had visual hallucinations in the when I was septic. 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 pt also stated she has hallucinations very time I close my eyes/
[2021-04-24 17:36] LABS: Anion Gap 9 (5-15); BUN 9 mg/dL (7-18); BUN/Creat Ratio 11.4 RATIO (10-20); Calcium,Total 9.2 mg/dL (8.5-10.1); Chloride 99 mmol/L (98-107); Creatinine, Serum 0.79 mg/dL (0.55-1.02); EST Glomerular Filtration Rate 79 mL/min (>60); Est Glom Filt Rate - Afr Amer 96 mL/min (>60); Estimated Creatinine Clearance 74.56 ml/min; Glucose 395 mg/dL (74-106); Potassium 4.5 mmol/L (3.5-5.1); Sodium Level 134 mmol/L (136-145); Troponin-I HS 4 pg/mL (3.0-54.0)
[2021-04-24] MEDS: 0.9% Normal Saline 1,000 ML 999 ML IV (17:39)
[2021-04-24 17:41] LABS: D-Dimer Quantitative (DVT/PE) 0.54 FEU/ug/m (0.27-0.49)
--- NOTE | 2021-04-24 17:44 | CT_ITS ---
STUDY: CTA CHEST REASON FOR EXAM: Female, 60 years old. chest pain RADIATION DOSAGE (If Supplied By Facility): CTDIvol = ( 9.41 ) mGy, DLP = ( 384.12 ) mGycm TECHNIQUE: The examination was performed with the intravenous administration of IV 100ML ISOVUE 300. Post-processing of the angiographic images was performed, with multiplanar reformation and 3D reconstruction. Individualized dose optimization techniques were used for this CT. COMPARISON: None. FINDINGS: Normal enhancement of the main pulmonary artery and right and left pulmonary arteries. Normal enhancement of the bilateral peripheral pulmonary arteries. There is no demonstrated pulmonary embolism. Normal thoracic aorta and visualized great vessels. There is no demonstrated aortic dissection. Normal heart and pericardium. Normal mediastinum. Normal hilar regions. Normal visualized trachea and bronchi. The lungs are well expanded. There is minor interstitial thickening more pronounced in the lower lobes with emphysematous changes. No focal infiltration or pulmonary nodule Normal pleura. Normal chest wall structures. Dorsal spine demonstrates arthritic changes. Nonspecific fatty infiltration of liver CT/CTA Chest W/WO Contrast IMPRESSION: Mild prominence of interstitial markings more pronounced the lower lobes. No focal infiltration. No evidence for pulmonary embolus Electronically Signed: Tavon Dubon MD at 19:12 EST , Service support ,
[2021-04-24 19:53] LABS: Troponin-I HS 12 pg/mL (3.0-54.0)
[2021-04-24] MEDS: Aspirin 81 MG TAB.CHEW 324 MG PO (19:53)
--- NOTE | 2021-04-24 19:57 | PCM.HP.STD ---
HPI - General General Date of Admission: 04/24/21 Date of Service: 04/24/21 Chief Complaint: Left-sided chest pain HPI Narrative ROSEANNA SOTO, is a 60 F who presents at the emergency department with left-sided chest pain that started about 45 minutes before presentation. Her chest pain started at rest and it progressively worsened. She described chest pain as pressure that radiated to her left neck into her left arm. The pain was of intensity 8 out of 10. She denies any nausea or vomiting. She reports associated shortness of breath; fatigue; and pallor. She denies any aggravating ameliorating factors to the pain. At the same time that she had chest pain she reported weakness of the left arm; slurry speech and left eye droop. Also she reported that her left arm aside from pain and weakness also felt weird. Further she reported that she has visual hallucinations anytime that she closes her eyes. [facility] Medical History Arachnoiditis Diabetes Hypertension Lupus Parkinson disease Sleep apnea Home Medications rasagiline 1 mg PO DAILY 03/17/13 [History Last Taken 03/18/19] Nuedexta 20/10 1 tab PO DAILY 03/18/13 [History Last Taken 03/18/19] morphine 15 mg PO BID 01/15/15 [History Last Taken 03/18/19] clonazepam 1 mg PO QHS 03/04/19 [History Last Taken 03/17/19] dulaglutide 0.75 mg SQ QWEEK 03/04/19 [History Last Taken 03/13/19] escitalopram oxalate 10 mg PO DAILY 03/04/19 [History Last Taken 03/18/19] esomeprazole magnesium 40 mg PO DAILY 03/04/19 [History Last Taken 03/18/19] gabapentin 900 mg PO BID 03/04/19 [History Last Taken 03/18/19] glimepiride 4 mg PO DAILY 03/18/19 [History Last Taken 03/18/19] oxycodone-acetaminophen 1 tab PO BID 03/18/19 [History Last Taken Unknown] propranolol 60 mg PO BID 08/16/19 [History Last Taken Unknown] tizanidine 4 mg PO QHS 08/16/19 [History Last Taken Unknown] carbidopa-levodopa 1 tab PO TID 09/06/19 [History Last Taken Unknown] Allergy/AdvReac Type Severity Reaction Status Date / Time indomethacin [From Indocin] Allergy Rash Verified 04/24/21 20:44 indomethacin sodium Allergy Rash Verified 04/24/21 20:44 [From Indocin] Penicillins Allergy Rash Verified 04/24/21 20:44 clarithromycin [From Biaxin] AdvReac Diarrhea Verified 04/24/21 20:44 Family History Brother Heart disease Mother Osteoarthritis Surgical History H/O: hysterectomy History of back surgery History of cholecystectomy History of knee surgery S/P cholecystectomy S/P left knee surgery Status post arthroscopy of hip Status post carpal tunnel release Social History Smoking Status: Never smoker alcohol intake: never ROS ROS Narrative Constitutional: Denies fever, chills, fatigue, anorexia and change in weight Eyes: Denies blurry vision, change in eye color, change in vision, discharge from eye(s), double vision, erythema, eye pain, loss of vision or other HEENT: Denies abnormal hearing, dysphagia, ear pain, epistaxis, headache(s), hearing loss, nasal congestion, nasal discharge, post nasal drip, sinus pressure, sore throat or other Cardiovascular: Reports chest pain. Denies palpitations. Respiratory/Chest: Reports shortness of breath. Denies cough. Gastrointestinal: Denies abdominal pain, coffee ground emesis, constipation, diarrhea, dyspepsia, hematemesis, hematochezia, loose stools, melena, nausea, vomiting or other Genitourinary: Denies burning urination, difficulty urinating, dysuria, hematuria, nocturia, urinary frequency, urinary hesitancy, urinary incontinence, urinary urgency or other Musculoskeletal: Denies arthralgias, back pain, joint pain, joint stiffness, joint swelling, myalgias, neck pain or other Neurologic: Reports left arm weakness. Reports slurred speech. Denies seizure-like activity, seizures, syncope, tingling, tremor(s) or other Psychiatric: Reports hallucinations. Denies anxiety, depression. Endocrinology: Denies change in body appearance, cold intolerance, excessive sweating, heat intolerance, polydipsia, polyuria or other Hematologic/Lymphatic: Denies anemia, easy bleeding, easy bruising, lymphadenopathy or other Integumentary: Denies rashes Allergic/Immunologic: Denies rhinitis, hives, eczema, asthma or other Vital Signs Vital Signs Vital Signs: 04/24/21 16:44 04/24/21 17:31 04/24/21 18:00 Temperature 97.6 F L Temperature Source Temporal Pulse Rate 77 69 Respiratory Rate 16 14 Respiratory Effort Normal Short of Breath Blood Pressure 166/104 H 148/92 H Blood Pressure Mean 124 110 Pulse Ox 96 94 Oxygen Delivery Method Room Air Room Air 04/24/21 19:00 04/24/21 19:29 Temperature Temperature Source Pulse Rate 67 74 Respiratory Rate 12 16 Respiratory Effort Blood Pressure 143/86 H 136/79 H Blood Pressure Mean 105 98 Pulse Ox 98 97 Oxygen Delivery Method Room Air Weight Weight: 87.543 kg Body Mass Index (BMI) 30.2 Physical Exam Narrative Physical exam: General: Well-nourished, well-developed. Head: Normocephalic, atraumatic, no tenderness Eyes: PERRLA, EOMI ENT, no trauma, moist mucous membranes, no rhinorrhea Neck: Nontender, full range of motion, no spinal tenderness, deformities, step-off CVS: Regular rate and rhythm. S1-S2 present. No murmur, gallop or rub. Respiratory : clear to auscultation bilaterally, chest wall nontender, no wheezing Abdomen: Soft, nontender, nondistended, normal bowel sounds, no masses : Deferred Back: Nontender, no CVA tenderness, no midline spinal tenderness, deformities, step-offs Extremities: Nontender full range of motion, no trauma Skin: Normal color, no trauma, abrasions Neuro: Alert, oriented, cranial nerves II through XII grossly intact. Psychiatry: Normal mood. Normal affect. Not depressed. Not anxious. Results Lab / Micro Data Result Diagrams: 04/24/21 17:06 04/24/21 17:06 Labs: Laboratory Results - last 24 hr 04/24/21 17:06: WBC 9.7, RBC 4.80, Hgb 14.6, Hct 43.3, MCV 90.2, MCH 30.4, MCHC 33.7, RDW Std Deviation 39.8, RDW Coeff of Arben 12.0, Plt Count 249, MPV 11.9, Immature Gran % (Auto) 0.400, Neut % (Auto) 61.8, Lymph % (Auto) 29.1, Stone % (Auto) 7.0, Eos % (Auto) 0.9, Baso % (Auto) 0.8, Absolute Neuts (auto) 6.0, Absolute Lymphs (auto) 2.83, Nucleated RBC % 0 04/24/21 17:06: D-Dimer Quant (PE/DVT) 0.54 H* 04/24/21 17:06: Sodium 134 L, Potassium 4.5, Chloride 99, Carbon Dioxide 26.0, Anion Gap 9, BUN 9, Creatinine 0.79, Estim Creat Clear Calc 74.56, Est GFR (MDRD) Af Amer 96, Est GFR (MDRD) Non-Af 79, BUN/Creatinine Ratio 11.4, Glucose 395 H, Calcium 9.2, Troponin I High Sens 4 04/24/21 19:21: Troponin I High Sens [address] 04/24/21 16:58 IMPRESSION: Probable old left lacunar infarct. No acute bleed. If concern for acute infarct MRI recommended. Electronically Signed: Tavon Dubon MD at 17:32 EST , Service support , Chest X-Ray 04/24/21 17:20 IMPRESSION: No acute cardiopulmonary pathology Electronically Signed: Tavon Dubon MD at 17:33 EST , Service support , Chest CTA 04/24/21 17:44 IMPRESSION: Mild prominence of interstitial markings more pronounced the lower lobes. No focal infiltration. No evidence for pulmonary embolus Electronically Signed: Tavon Dubon MD at 19:12 EST , Service support , Assessment & Plan Assessment/Plan (1) Diabetes mellitus: QUALIFIERS: Diabetes mellitus complication status: without complication Diabetes mellitus skilled nursing insulin use: without skilled nursing use Diabetes mellitus type: type 2 Qualified Code(s): E11.9 - Type 2 diabetes mellitus without complications (2) Parkinsons disease: (3) Stroke-like symptom: (4) Chest pain: QUALIFIERS: Chest pain type: unspecified Qualified Code(s): R07.9 - Chest pain, unspecified PLAN: Chest Pain Place on a monitored bed at PCU Actual CXR image was independently visualized. No acute cardiopulmonary process was noted. I agree with radiologist interpretation. D-dimer was 0.54. Chest CTA did not show any atrial dissection or PE. Actual EKG tracing was independently visualized. EKG tracing showed normal sinus rhythm Received aspirin 324 mg at emergency department. ASA 81 mg p.o. daily ordered SL NTG 0.4 mg prn as needed for chest pain ordered We will check lipid panel. Statin: Atorvastatin 40 mg nightly ordered. Check CMP. Initial troponin was negative. Trend cardiac enzymes and check echocardiogram. Strokelike symptoms. Serial NINDS NIH Scale ordered CT of the head independently interpreted did not show any acute bleed. Per Radiology probable old left lacunar infarct. Lipid profile and A1c ordered. Physical therapy, and occupational therapy to work with patient. N.p.o. until bedside swallow eval. Daily aspirin. High intensity statin ordered Permissive hypertension. Control blood pressure with labetalol for systolic blood pressure of more than 220 or diastolic blood pressure of more than 120. MRI/MRA of head; brain; and neck. Echocardiogram ordered. Diabetes mellitus with hyperglycemia. Patient with hyperglycemia on presentation On home dulaglutide every week. Hold while inpatient. Glimepiride continued. Accu-Chek with correction scale insulin ordered. Check A1c. History of Parkinson's disease Carbidopa levodopa continued. Rasagiline continued. Tizanidine continued. Propanolol continued. Chronic pain Morphine and Percocet continued. Gabapentin continued. DVT prophylaxis: Low risk on observation status. SCD ordered. Charges/Coding Visit Charges OBSV E&M: 87832 Initial observation care L3
--- NOTE | 2021-04-24 20:31 | EKG12_ITS ---
Test Reason : CP ADMIT Blood Pressure : / mmHG Vent. Rate : 067 BPM Atrial Rate : 067 BPM P-R Int : 198 ms QRS Dur : 088 ms QT Int : 432 ms P-R-T Axes : 031 010 026 degrees QTc Int : 456 ms Normal sinus rhythm Normal ECG Confirmed by ARNULFO CORBETT, DEREK ([id number]), editor managing newspaper [employer] ([id number]) on 04/26/2021 9:03:18 AM Referred By: LIDA Confirmed By:DEREK ARREDONDO MD
--- NOTE | 2021-04-24 20:31 | ECHOCS_ITS ---
Reason For Study: CVA Procedure This was a 2D Doppler, Color Flow transthoracic echocardiogram. The study was technically difficult. Contrast injection was performed. Exam performed in department. Left Ventricle Normal LV size. Sigmoid septum. Left ventricular systolic function is normal. The estimated ejection fraction is 60 %. No evidence for diastolic dysfunction. No regional wall motion abnormalities noted. Right Ventricle Normal RV size. Normal systolic function. Atria Normal left atrium. Normal right atrium. No doppler evidence for ASD. Bubble contrast study negative for right to left interatrial shunt. Mitral Valve There is no mitral annular calcification. Normal mitral valve. Trivial mitral valve insufficiency. Tricuspid Valve Normal tricuspid valve. Trivial tricuspid valve insufficiency. Right ventricular systolic pressure estimated to be 21 mmHg. Aortic Valve Trisinus/trileaflet aortic valve. Normal aortic valve. Pulmonic Valve The pulmonic valve is not well visualized. Great Vessels Normal sized aortic root. Pericardium/Pleural No pericardial effusion. Medication Performed a rapid injection of agitated mix of 9 cc saline and 1cc air to assess for atrial septal defect. Diluted definity 2ml given slow IV push to enhance endocardial definition. MMode/2D Measurements & Calculations LVIDd: 4.6 cm IVSd: 1.1 cm Ao root diam: 3.1 cm LVIDs: 3.5 cm LVPWd: 1.3 cm RVDd: 3.1 cm FS: 25.4 % LAV(MOD-bp): 27.3 ml LVAd ap4: 28.8 cm2 SV(MOD-sp4): 47.9 ml LAV(MOD-bp) Indexed: 13.6 ml/m2 LVLd ap4: 7.8 cm LAV(MOD-sp2): 24.6 ml EDV(MOD-sp4): 87.2 ml LAV(MOD-sp4): 27.6 ml EDV(sp4-el): 90.1 ml LVAs ap4: 16.9 cm2 LVLs ap4: 6.5 cm ESV(MOD-sp4): 39.3 ml ESV(sp4-el): 37.3 ml EF(MOD-sp4): 54.9 % EF(sp4-el): 58.6 % SV(sp4-el): 52.8 ml LA A4 area: 12.3 cm2 LA dimension(2D): 3.6 cm RA A4 area: 8.4 cm2 Doppler Measurements & Calculations MV E max naveen: 56.1 cm/sec Lat Peak E' Naveen: 7.7 cm/sec Med Peak E' Naveen: 5.7 cm/sec MV A max naveen: 73.6 cm/sec E/E' lat: 7.2 E/E' med: 9.9 MV E/A: 0.76 Ao V2 max: 105.3 cm/sec LV V1 max: 92.3 cm/sec PA V2 max: 81.5 cm/sec Ao max P.4 mmHg LV V1 max P.4 mmHg Ao V2 mean: 82.2 cm/sec Ao mean P.9 mmHg Ao V2 VTI: 22.6 cm TR max naveen: 213.6 cm/sec TR max P.3 mmHg ECHO/Echo Complete W/ Contrast Interpretation Summary The study was technically difficult. Contrast injection was performed. Left ventricular systolic function is normal. The estimated ejection fraction is 60 %. Sigmoid septum. Trivial mitral valve insufficiency. Trivial tricuspid valve insufficiency. Right ventricular systolic pressure estimated to be 21 mmHg. No evidence for diastolic dysfunction. Bubble contrast study negative for right to left interatrial shunt. Ordering Physician: Mason Stone Referring Physician: José Miguel Randhawa Performed By: Freda Olmos, JAMIE, RVT
--- NOTE | 2021-04-24 20:32 | PCS.PANDOC ---
PANDEMIC DOCUMENTATION INITIATED: Date: 01/29/2021 Time: 190
[2021-04-24 21:55] LABS: Bedside Glucose 343 mg/dL (70-110)
[2021-04-24] MEDS: morphine SR 15 MG Tablet PO (22:09)
[2021-04-24] MEDS: clonazePAM 1 MG Tablet PO (22:09)
[2021-04-24] MEDS: Atorvastatin Calcium 40 MG Tablet PO (22:11)
[2021-04-24] MEDS: Propranolol 40 MG Tablet 60 MG PO (22:11)
[2021-04-24] MEDS: tiZANidine HCl 2 MG Tablet 4 MG PO (22:11)
[2021-04-24] MEDS: Gabapentin 300 MG Capsule 900 MG PO (22:11)
[2021-04-24] MEDS: Insulin Lispro 100 UNIT/ML INSULN.PEN SC (22:13)
[2021-04-24] MEDS: Carbidopa/Levodopa 25/100 Tablet PO (22:13)
[2021-04-24] MEDS: oxyCODONE 5 MG Tablet PO (22:15)
[2021-04-25] VITALS (12 sets, daily range): BP systolic 82–125; BP diastolic 59–82; PULSE 72–88; RESP 16–18; TEMP 36.2–36.5; O2SAT 92–96; BMI 31.0
[2021-04-25 00:02] LABS: Troponin-I HS 40 pg/mL (3.0-54.0)
[2021-04-25] MEDS: Carbidopa/Levodopa 25/100 Tablet PO ×2 (05:08→13:39)
[2021-04-25 06:10] LABS: ALB/GLOB Ratio 0.9 RATIO (0.9-2.4); AST(SGOT) 20 U/L (15-37); Alanine Aminotransfer ALT/SGPT 15 U/L (13-56); Albumin, Serum 3.1 g/dL (3.2-5.0); Alkaline Phosphatase 86 U/L (45-117); Anion Gap 7 (5-15); BUN 7 mg/dL (7-18); BUN/Creat Ratio 10.6 RATIO (10-20); Calcium,Total 8.7 mg/dL (8.5-10.1); Chloride 102 mmol/L (98-107); Cholesterol 180 mg/dL (200); Creatinine, Serum 0.66 mg/dL (0.55-1.02); EST Glomerular Filtration Rate 97 mL/min (>60); Est Glom Filt Rate - Afr Amer 118 mL/min (>60); Estimated Creatinine Clearance 89.25 ml/min; Globulin 3.5 g/dL (2.2-4.2); Glucose 175 mg/dL (74-106); High Density Lipoprotein 37 mg/dL; Potassium 3.6 mmol/L (3.5-5.1); Protein, Total 6.6 g/dL (6.4-8.2); Sodium Level 138 mmol/L (136-145); Triglycerides 252 mg/dL; Very Low Density Lipoprotein 50 mg/dL (5-40)
[2021-04-25] MEDS: 0.9% Normal Saline 1,000 ML 999 ML IV (06:10)
[2021-04-25 07:06] LABS: Bedside Glucose 159 mg/dL (70-110)
--- NOTE | 2021-04-25 09:00 | MRI_ITS ---
EXAM: MR ANGIOGRAPHY HEAD WITHOUT INTRAVENOUS CONTRAST CLINICAL INDICATION: cva, left chest pain radiating into lt neck/lt arm, slurred speech, lt arm weakness TECHNIQUE: Routine [place]/brain 3D time of flight MR angiogram protocol was performed without intravenous contrast. This report was created using [employer] report generation technology. COMPARISON: None. FINDINGS: RIGHT INTERNAL CAROTID ARTERY: No acute findings. No significant stenosis at the intracranial/visualized segments. No aneurysm. RIGHT ANTERIOR CEREBRAL ARTERY: Unremarkable. No significant stenosis at the visualized segments. Anterior communicating artery is present. No aneurysm. RIGHT MIDDLE CEREBRAL ARTERY: Unremarkable. No significant stenosis at the visualized segments. No aneurysm. RIGHT POSTERIOR CEREBRAL ARTERY: Unremarkable. No significant stenosis at the visualized segments. No aneurysm. RIGHT VERTEBRAL ARTERY: Unremarkable as visualized. No significant stenosis at the intradural/visualized segments. No aneurysm. LEFT INTERNAL CAROTID ARTERY: No acute findings. No significant stenosis at the intracranial/visualized segments. No aneurysm. LEFT ANTERIOR CEREBRAL ARTERY: Unremarkable. No significant stenosis at the visualized segments. Anterior communicating artery is present. No aneurysm. LEFT MIDDLE CEREBRAL ARTERY: Unremarkable. No significant stenosis at the visualized segments. No aneurysm. LEFT POSTERIOR CEREBRAL ARTERY: Unremarkable. No significant stenosis at the visualized segments. No aneurysm. LEFT VERTEBRAL ARTERY: Unremarkable as visualized. No significant stenosis at the intradural/visualized segments. No aneurysm. BASILAR ARTERY: Unremarkable. No significant stenosis. No aneurysm. OTHER VASCULATURE: No vascular malformation. MRI/MRA Head ONLY without Contrast IMPRESSION: Unremarkable MRA head. ALL ABOVE CRITERIA BY NASCET. Electronically Signed: Chidi Gamez MD at 16:10 EST , Service support ,
--- NOTE | 2021-04-25 09:00 | MRI_ITS ---
EXAM: MR HEAD WITHOUT INTRAVENOUS CONTRAST CLINICAL INDICATION: cva TECHNIQUE: Multiplanar and multisequence MR images of the brain were obtained without intravenous contrast. This report was created using [employer] report generation technology. COMPARISON: 04.24.21 ct head. FINDINGS: BRAIN AND EXTRA-AXIAL SPACES: Unremarkable. No intra- or extra-axial hemorrhage. No evidence of acute infarct. No intracranial mass or mass effect. There is preservation of the plata/white matter interface. Posterior fossa structures are unremarkable. Ventricles are appropriate for age. No hydrocephalus. Basal cisterns are patent. SELLA: Unremarkable. Normal sella turcica, pituitary gland, infundibular stalk, optic chiasm and hypothalamus. AUDITORY SYSTEM: Unremarkable. The internal auditory canals are patent. BONES/JOINTS: Unremarkable. No discrete lytic or blastic abnormalities. SINUSES: Unremarkable as visualized. Clear. MASTOID AIR CELLS: Unremarkable as visualized. Clear. ORBITS: Unremarkable as visualized. Both globes, extraocular muscles, optic nerves and retrobulbar fat appear unremarkable. VASCULATURE: Unremarkable as visualized. Normal flow voids in the major intracranial circulation. MRI/Brain without Contrast IMPRESSION: Negative MRI brain without intravenous contrast. Electronically Signed: Chidi Gamez MD at 15:58 EST , Service support ,
--- NOTE | 2021-04-25 09:00 | MRI_ITS ---
EXAM: MR ANGIOGRAPHY NECK WITHOUT INTRAVENOUS CONTRAST CLINICAL INDICATION: cva, left chest pain radiating into lt neck/lt arm, slurred speech, lt arm weakness TECHNIQUE: Routine carotid MR angiogram protocol was performed without intravenous contrast. 3D reconstructions were reviewed. Nascet criteria using the distal ICAs for comparison were used for evaluation of stenoses. This report was created using [employer] report generation technology. COMPARISON: None. FINDINGS: RIGHT COMMON CAROTID ARTERY: Unremarkable. No occlusion or significant stenosis. No dissection. RIGHT INTERNAL CAROTID ARTERY: Unremarkable. Extracranial segment is patent with no occlusion or significant stenosis. No dissection. RIGHT EXTERNAL CAROTID ARTERY: Unremarkable. No occlusion. RIGHT VERTEBRAL ARTERY: Unremarkable. No occlusion or significant stenosis. No dissection. LEFT COMMON CAROTID ARTERY: Unremarkable. No occlusion or significant stenosis. No dissection. LEFT INTERNAL CAROTID ARTERY: Unremarkable. Extracranial segment is patent with no occlusion or significant stenosis. No dissection. LEFT EXTERNAL CAROTID ARTERY: Unremarkable. No occlusion. LEFT VERTEBRAL ARTERY: Unremarkable. No occlusion or significant stenosis. No dissection. GREAT VESSELS OF AORTIC ARCH: Unremarkable. No significant stenosis. CAROTID STENOSIS REFERENCE USING NASCET CRITERIA: % ICA stenosis = (1 - narrowest ICA diameter/diameter of distal cervical ICA) x 100. Mild - <50% stenosis. Moderate - 50-69% stenosis. Severe - 70-94% stenosis. Near occlusion - 95-99% stenosis. Occluded - 100% stenosis. MRI/MRA Neck without Contrast IMPRESSION: Unremarkable MRA neck. ALL ABOVE CRITERIA BY NASCET. Electronically Signed: Chidi Gamez MD at 16:14 EST , Service support ,
--- NOTE | 2021-04-25 10:47 | STRESSREP ---
Stress Test Report Date: 04-25-2021 Procedure: Pharmacologic stress nuclear imaging study Indications: Chest pain; fatigue Consent: Per the patient Procedure: The patient underwent pharmacologic (Regadenoson 0.4mg ) evaluation with a peak heart rate of 105 beats per minute (65%predicted maximal heart rate) and a peak blood pressure of 118/88 mmHg. The baseline ECG demonstrated sinus rhythm. The peak pharmacologic ECG demonstrated no obvious ECG changes. There were no cardiac dysrhythmias pretest, during pharmacologic infusion, or recovery. There was no complaint of chest discomfort during pharmacologic infusion or recovery. The examination was discontinued secondary to completion of protocol. Impression: 1. Pharmacologic (Regadenoson) evaluation 2. Peak pharmacologic ECG with no obvious ECG changes. 3. There were no cardiac dysrhythmias pretest, during pharmacologic infusion, or recovery. 4. Nuclear images pending Myocardial perfusion imaging study: Technique: The patient was injected with 11.9 millicuries of technetium 99m Cardiolite and subsequently rest SPECT Cardiolite nuclear imaging was obtained in the horizontal long, vertical long, and short axis views. The patient underwent pharmacologic (Regadenoson) evaluation with a peak heart rate of 105 beats per minute (65% percent predicted maximal heart rate) and a peak blood pressure of 118/88 mmHg. The patient was injected with 34.7 millicuries of technetium 99m Cardiolite and subsequently stress SPECT Cardiolite nuclear imaging was obtained in the horizontal long, vertical long, and short axis views. A gated Cardiolite study at peak stress was obtained. Interpretation: Rest and stress SPECT Cardiolite nuclear imaging status post realignment, normalization, and attenuation correction demonstrate relative uniform tracer uptake and myocardial perfusion appearing within normal limits. There is end systolic thickening and brightening. The gated Cardiolite study demonstrates myocardial thickening and inward wall motion. The reported LVEF is 70%. Impression: 1. Rest and stress SPECT Cardiolite nuclear imaging demonstrate relative uniform tracer uptake and myocardial perfusion appearing within normal limits. 2. The gated Cardiolite study reports an LVEF of 70%. This note was generated with [employer] software. It may contain incorrect words, spelling, and punctuation that were not noted in checking the note before signing.
[2021-04-25] MEDS: Glimepiride 4 MG Tablet PO (10:51)
[2021-04-25] MEDS: Aspirin E.C. 81 MG Tablet PO (10:51)
[2021-04-25] MEDS: Gabapentin 300 MG Capsule 900 MG PO (10:51)
[2021-04-25] MEDS: Propranolol 40 MG Tablet 60 MG PO (10:52)
[2021-04-25] MEDS: oxyCODONE 5 MG Tablet PO (10:52)
[2021-04-25] MEDS: Pantoprazole Sodium 40 MG Tablet PO (10:52)
[2021-04-25] MEDS: Escitalopram Oxalate 10 MG Tablet PO (10:52)
[2021-04-25] MEDS: morphine SR 15 MG Tablet PO (10:52)
[2021-04-25] MEDS: Insulin Lispro 100 UNIT/ML INSULN.PEN SC (10:58)
[2021-04-25 11:06] LABS: Bedside Glucose 183 mg/dL (70-110)
[2021-04-25] MEDS: Acetaminophen 325 MG Tablet 650 MG PO (12:27)
[2021-04-25] MEDS: LORazepam 2 MG/ML Syringe 1 MG IV (13:36)
--- NOTE | 2021-04-25 14:52 | NURSING ---
[facility] late for 1000 time and 1400 time d/t stress test and MRI
--- NOTE | 2021-04-25 15:30 | CASEMGMT ---
Pt independent in room, still awaiting MRI results but plan is to d/c pt today. SStaten RN CM
[2021-04-25 16:06] LABS: Bedside Glucose 156 mg/dL (70-110)
--- NOTE | 2021-04-25 16:21 | NURSING ---
This RN taking over care at this time
--- NOTE | 2021-04-25 16:36 | PCM.DC ---
Discharge Instructions Diet Discharge Diet: Low fat / Low cholesterol and 1800 Calorie Control Diet Activity Discharge Activity: Return to Normal Activity Dressing / Incision Call your doctor if you observe: Numbness or Tingling, Fainting spells, Chest pain and Increased palpitations (irregular heartbeat) Follow Up Care Please Follow Up With: Clemente Randhawa MD When: 1-2 weeks Test Results: Test results from this visit will be discussed in further detail at your follow-up appointment, if applicable. Discharge Plan Admission Admit Date/Time: 04/24/21 19:46 Primary Reason for Your Visit: Chest Pain, Left arm weakness Attending Provider: Yvette Hutchison Primary Care Provider: Clemente Randhawa Discharge Orders/Prescriptions Prescriptions: Continued rasagiline 1 MG tablet 1 mg PO DAILY RF: 0 Nuedexta 20/10 tablet 1 tab PO DAILY RF: 0 morphine 15 MG tablet 15 mg PO BID RF: 0 gabapentin 600 tablet 900 mg PO BID RF: 0 clonazepam 1 MG tablet 1 mg PO QHS RF: 0 esomeprazole magnesium 40 MG capsule 40 mg PO DAILY RF: 0 escitalopram oxalate 10 MG tablet 10 mg PO DAILY RF: 0 dulaglutide 0.75 MG/0.5 ML pen injector 0.75 mg SQ QWEEK RF: 0 glimepiride 4 tablet 4 mg PO DAILY RF: 0 oxycodone-acetaminophen 1 TABLET tablet 1 tab PO BID RF: 0 propranolol 20 MG tablet 60 mg PO BID RF: 0 tizanidine 4 MG capsule 4 mg PO QHS RF: 0 carbidopa-levodopa 25-100 mg tablet extended release 1 tab PO TID RF: 0 Referrals / Follow Up: Clemente Randhawa MD [Primary Care Provider] - Disposition Disposition (needs filled in before D/C Order can be placed): Home, Self Care
--- NOTE | 2021-04-25 16:41 | DS.PCM_ITS ---
Documented by User: AZAM Leahy 04/25/21 16:43 Providers Date of Admission: 04/24/21 Primary Care Physician: Dr. Clemente Randhawa MD Reason For Visit: CHEST PAIN, STROKE LIKE SYMPTOMS Diagnosis Discharge Diagnosis (1) Diabetes mellitus: Status: Chronic Code(s): E11.9 - Type 2 diabetes mellitus without complications Qualifiers: Diabetes mellitus complication status: without complication Diabetes mellitus terminal carman insulin use: without correction use Diabetes mellitus type: type 2 Qualified Code(s): E11.9 - Type 2 diabetes mellitus without complications (2) Parkinsons disease: Status: Chronic Code(s): G20 - Parkinson's disease (3) Stroke-like symptom: Status: Acute Code(s): R29.90 - Unspecified symptoms and signs involving the nervous system (4) Chest pain: Status: Acute Code(s): R07.9 - Chest pain, unspecified Qualifiers: Chest pain type: unspecified Qualified Code(s): R07.9 - Chest pain, unspecified Medications at Discharge Home Medications rasagiline 1 mg PO DAILY 03/17/13 Nuedexta 04/04 1 tab PO DAILY 03/18/13 morphine 15 mg PO BID 01/15/15 clonazepam 1 mg PO QHS 03/04/19 dulaglutide 0.75 mg SQ QWEEK 03/04/19 escitalopram oxalate 10 mg PO DAILY 03/04/19 esomeprazole magnesium 40 mg PO DAILY 03/04/19 gabapentin 900 mg PO BID 03/04/19 glimepiride 4 mg PO DAILY 03/18/19 oxycodone-acetaminophen 1 tab PO BID 03/18/19 propranolol 60 mg PO BID 08/16/19 tizanidine 4 mg PO QHS 08/16/19 carbidopa-levodopa 1 tab PO TID 09/06/19 aspirin [Adult Aspirin Regimen] 81 mg PO DAILY #30 tab 04/25/21 Hospital Course Operations None Procedures 2-D Echocardiogram, EKG and Stress test Summary of Care Provided Minutes Spent on Discharge: 35 Hospital Course: Patient is a 60-year-old female who originally presented for chest pain and left-sided weakness and facial droop. Patient underwent a stress test which was negative and an echocardiogram which demonstrated an EF of 60%. Patient also underwent a brain MRI and head and neck MRA which were all negative for acute findings. Patient will be instructed to follow-up with her PCP in 1 to 2 weeks. Physical Exam Const alert, oriented x3 and no apparent distress General Appearance: cooperative HEENT normocephalic and head/scalp atraumatic Eyes conjunctivae normal and no scleral icterus Neck supple General: trachea midline Resp normal respiratory effort, normal air movement and clear to auscultation bilaterally Cardio regular rate, regular rhythm, S1 normal heart sound, S2 normal heart sound and peripheral pulses 2+ throughout GI normal to inspection, nondistended, normoactive bowel sounds, soft to palpation and non-tender Extremity normal capillary refill and no clubbing, cyanosis or edema General Extremity: no tenderness to palpation of joints or extremities Skin skin turgor normal General Skin Exam: no breakdown Lesions: no lesions Rashes: no rashes Neuro oriented x3, moves all extremities, no focal motor deficits, no sensory deficits noted and gait normal Psych affect normal Appearance: appropriate Weight / BMI Weight Weight: 198 lb 3.129 oz Body Mass Index (BMI) 31.0 ABG / Lab / Microbiology Data Result Diagrams: 04/24/21 17:06 04/25/21 05:38 Laboratory: Laboratory Results - last 24 hr 04/24/21 17:06: WBC 9.7, RBC 4.80, Hgb 14.6, Hct 43.3, MCV 90.2, MCH 30.4, MCHC 33.7, RDW Std Deviation 39.8, RDW Coeff of Arben 12.0, Plt Count 249, MPV 11.9, Immature Gran % (Auto) 0.400, Neut % (Auto) 61.8, Lymph % (Auto) 29.1, [place] % (Auto) 7.0, Eos % (Auto) 0.9, Baso % (Auto) 0.8, Absolute Neuts (auto) 6.0, Absolute Lymphs (auto) 2.83, Nucleated RBC % 0 04/24/21 17:06: D-Dimer Quant (PE/DVT) 0.54 H* 04/24/21 17:06: Sodium 134 L, Potassium 4.5, Chloride 99, Carbon Dioxide 26.0, Anion Gap 9, BUN 9, Creatinine 0.79, Estim Creat Clear Calc 74.56, Est GFR (MDRD) Af Amer 96, Est GFR (MDRD) Non-Af 79, BUN/Creatinine Ratio 11.4, Glucose 395 H, Calcium 9.2, Troponin I High Sens 4 04/24/21 19:21: Troponin I High Sens 12 04/24/21 21:04: POC Glucose 343 H 04/24/21 23:20: Troponin I High Sens 40 04/25/21 05:38: Sodium 138, Potassium 3.6, Chloride 102, Carbon Dioxide 29.0, Anion Gap 7, BUN 7, Creatinine 0.66, Estim Creat Clear Calc 89.25, Est GFR (MDRD) Af Amer 118, Est GFR (MDRD) Non-Af 97, BUN/Creatinine Ratio 10.6, Glucose 175 H, Calcium 8.7, Total Bilirubin 0.60, AST 20, ALT 15, Alkaline Phosphatase 86, Total Protein 6.6, Albumin 3.1 L, Globulin 3.5, Albumin/Globulin Ratio 0.9, Triglycerides 252 H, Cholesterol 180, LDL Cholesterol 93, VLDL Cholesterol 50 H, HDL Cholesterol 37 L 04/25/21 05:38: Hemoglobin A1c 10.0 H 04/25/21 06:56: POC Glucose 159 H 04/25/21 10:58: POC Glucose 183 H 04/25/21 15:59: POC Glucose 156 H Radiography Diagnostic Testing: Radiology Impression Brain CT 04/24/21 16:58 IMPRESSION: Probable old left lacunar infarct. No acute bleed. If concern for acute infarct MRI recommended. Electronically Signed: Tavon Dubon MD at 17:32 EST , Service support , Chest X-Ray 04/24/21 17:20 IMPRESSION: No acute cardiopulmonary pathology Electronically Signed: Tavon Dubon MD at 17:33 EST , Service support , Chest CTA 04/24/21 17:44 IMPRESSION: Mild prominence of interstitial markings more pronounced the lower lobes. No focal infiltration. No evidence for pulmonary embolus Electronically Signed: Tavon Dubon MD at 19:12 EST , Service support , Echocardiogram 04/24/21 20:31 Interpretation Summary The study was technically difficult. Contrast injection was performed. Left ventricular systolic function is normal. The estimated ejection fraction is 60 %. Sigmoid septum. Trivial mitral valve insufficiency. Trivial tricuspid valve insufficiency. Right ventricular systolic pressure estimated to be 21 mmHg. No evidence for diastolic dysfunction. Bubble contrast study negative for right to left interatrial shunt. Ordering Physician: Mason Stone Referring Physician: José Miguel Randhawa Performed By: Freda Olmos, JAMIE, RVT Brain MRI 04/25/21 09:00 IMPRESSION: Negative MRI brain without intravenous contrast. Electronically Signed: Chidi Gamez MD at 15:58 EST , Service support , Head MRA 04/25/21 09:00 IMPRESSION: Unremarkable MRA head. ALL ABOVE CRITERIA BY [facility]. Electronically Signed: Chidi Gamez MD at 16:10 EST , Service support , Neck MRA 04/25/21 09:00 IMPRESSION: Unremarkable MRA neck. ALL ABOVE CRITERIA BY [facility]. Electronically Signed: Chidi Gamez MD at 16:14 EST , Service support , D/C Instructions Discharge Diet: Low fat / Low cholesterol and 1800 Calorie Control Diet Call your doctor if you observe: Numbness or Tingling, Fainting spells, Chest pain and Increased palpitations (irregular heartbeat) Please Follow Up With: Clemente Randhawa MD When: 1-2 weeks Meaningful Use Info Meaningful Use Diagnoses (Choose all that apply): None applicable Discharge Plan Admission Admit Date/Time: 04/24/21 19:46 Primary Reason for Your Visit: Chest Pain, Left arm weakness Attending Provider: Yvette Hutchison Primary Care Provider: Clemente Randhawa Instructions Additional Instructions / Restrictions: 1. Please start aspirin as noted below [id number] 2. Please follow-up with your neurologist with regards to your suspected TIA 3. Please follow-up with your PCP with regards to your uncontrolled hypergl ycemia -Your hemoglobin A1c was 10 with a goal being 7 Discharge Orders/Prescriptions Prescriptions: New aspirin [Adult Aspirin Regimen] 81 mg tablet,delayed release (DR/EC) 81 mg PO DAILY Qty: 30 RF: 0 Continued rasagiline 1 MG tablet 1 mg PO DAILY RF: 0 Nuedexta 20/10 tablet 1 tab PO DAILY RF: 0 morphine 15 MG tablet 15 mg PO BID RF: 0 gabapentin 600 tablet 900 mg PO BID RF: 0 clonazepam 1 MG tablet 1 mg PO QHS RF: 0 esomeprazole magnesium 40 MG capsule 40 mg PO DAILY RF: 0 escitalopram oxalate 10 MG tablet 10 mg PO DAILY RF: 0 dulaglutide 0.75 MG/0.5 ML pen injector 0.75 mg SQ QWEEK RF: 0 glimepiride 4 tablet 4 mg PO DAILY RF: 0 oxycodone-acetaminophen 1 TABLET tablet 1 tab PO BID RF: 0 propranolol 20 MG tablet 60 mg PO BID RF: 0 tizanidine 4 MG capsule 4 mg PO QHS RF: 0 carbidopa-levodopa 25-100 mg tablet extended release 1 tab PO TID RF: 0 Referrals / Follow Up: Clemente Randhawa MD [Primary Care Provider] - Within 2 Weeks Disposition Disposition (needs filled in before D/C Order can be placed): Home, Self Care Documented by User: Dr. Yvette Hutchison DO 04/25/21 17:06 Providers Date of Admission: 04/24/21 Reason For Visit: CHEST PAIN, STROKE LIKE SYMPTOMS Medications at Discharge Home Medications rasagiline 1 mg PO DAILY 03/17/13 Nuedexta 04/04 1 tab PO DAILY 03/18/13 morphine 15 mg PO BID 01/15/15 clonazepam 1 mg PO QHS 03/04/19 dulaglutide 0.75 mg SQ QWEEK 03/04/19 escitalopram oxalate 10 mg PO DAILY 03/04/19 esomeprazole magnesium 40 mg PO DAILY 03/04/19 gabapentin 900 mg PO BID 03/04/19 glimepiride 4 mg PO DAILY 03/18/19 oxycodone-acetaminophen 1 tab PO BID 03/18/19 propranolol 60 mg PO BID 08/16/19 tizanidine 4 mg PO QHS 08/16/19 carbidopa-levodopa 1 tab PO TID 09/06/19 aspirin [Adult Aspirin Regimen] 81 mg PO DAILY #30 tab 04/25/21 Hospital Course Procedures - (MRI and MRA of head and neck) Summary of Care Provided Minutes Spent on Discharge: 38 Hospital Course: This patient was seen in conjunction with Jessi Jaimes NP. The following represents my independent history and physical examination. Alexandro reyes see below for addendum the above. Mrs. Jones is a 60-year-old white female who presented to the emergency department [facility] on 04/24/2021 with a chief complaint of chest pain. Upon presentation she complained of left-sided chest pain that started approximately 45 minutes before presentation. She reported her chest pain started at rest and was progressively worsened with time. She reported that the chest pain radiated to her left neck and left arm. She complained of an intensity of 8 out of 10. She denied any associated nausea or vomiting but did report some associated shortness of breath fatigue and pallor. At the same time as she had chest pain she reported weakness of her left arm, slurred speech, and left eye droop. She also reported that her left arm aside from pain was weak and felt weird. Her daughter did present with her and could not confirm that any of these changes that were reported were visualized. Her vital signs were unremarkable. Her blood work was unremarkable other than a mildly elevated D-dimer at 0.54 for which a CTA of her chest was performed and showed no pulmonary emboli. A CT of her head was obtained in the emergency department and showed probable old lacunar infarct but nothing acute. There was concern that her symptoms could be related to stroke versus TIA and she was admitted for stroke work-up as well as her chest pain. Troponins were obtained and cycled her troponin on admission was 4 with a repeat troponin at 12 and her third troponin elevated to 40 which is still negative but with her rate of rise and her risk factors including hypertension, hyperlipidemia, and diabetes we felt it prudent to perform a stress test. Her stress test was normal and showed relative uniform tracer uptake and myocardial perfusion that appeared within normal limits and an EF of 70%. As part of her stroke work-up an echocardiogram was performed and showed an EF of 60% with a normal LV systolic function and a n egative bubble study. Her lipids were obtained and a total cholesterol of 180 was found with an LDL of 93 and an HDL of 37. Her triglycerides were elevated however her blood sugars are elevated as well and I suspect with improved blood sugar control this should improve as well. Hemoglobin A1c was ordered and found to be 10%. We did instruct her to follow-up with her PCP for improved blood sugar control and possible alterations in her regimen as it does appear as she has had improved control in the past. An MRI it was obtained and showed no acute or chronic changes. An MRI of her head and neck was performed and was negative for any blockages. Given her negative work-up she was discharged home in stable condition. We did start aspirin 81 mg daily given her risk factors for TIA. She was maintained on telemetry during her hospitalization and no arrhythmias noted. She has a history of Parkinson's and follows with neurology and we encouraged continued follow-up with regards to this current event with neurology as well. She is to follow-up with her PCP in 2 weeks. Discharge diagnoses: Suspected TIA Uncontrolled diabetes type 2 Noncardiac chest pain Diabetic neuropathy Parkinson's disease Hypertension Anxiety/depression GERD Chronic pain Arachnoiditis YUONG Physical Exam Const alert, oriented x3 and no apparent distress Constitutional Narrative: Obese, middle-aged white female sitting up in bed watching television, appears comfortable, nontoxic, at this time her only complaint is headache and she states all of her other symptoms have resolved General Appearance: cooperative and well developed HEENT normocephalic, head/scalp atraumatic and moist oral mucous membranes Eyes PERRL and EOMs intact bilaterally Eyes Narrative: No scleral icterus or conjunctival pallor Neck no lymphadenopathy, supple, thyroid normal and no carotid bruits General: trachea midline Resp normal respiratory effort, normal air movement and clear to auscultation b ilaterally Auscultation: Negative for rales, rhonchi or wheezes Cardio regular rate, regular rhythm, S1 normal heart sound, S2 normal heart sound, no murmurs, no rub, no gallops and peripheral pulses 2+ throughout GI normal to inspection, nondistended, normoactive bowel sounds, soft to palpation, non-tender and non-distended Palpation: no hepatosplenomegaly Extremity normal capillary refill and no clubbing, cyanosis or edema General Extremity: no tenderness to palpation of joints or extremities Skin skin turgor normal General Skin Exam: no breakdown Lesions: no lesions Rashes: no rashes Neuro CN's II-XII intact bilaterally, no focal motor deficits, no sensory deficits noted and deep tendon reflexes 2+ bilaterally Speech: speech normal Motor Exam: strength 5/5 throughout Psych affect normal Psych Narrative: Very pleasant ABG / Lab / Microbiology Data Result Diagrams: 04/24/21 17:06 04/25/21 05:38 Discharge Plan Admission Admit Date/Time: 04/24/21 19:46 Primary Reason for Your Visit: Chest Pain, Left arm weakness Attending Provider: Yvette Hutchison Primary Care Provider: Clemente Randhawa Instructions Additional Instructions / Restrictions: 1. Please start aspirin as noted below [id number] 2. Please follow-up with your neurologist with regards to your suspected TIA 3. Please follow-up with your PCP with regards to your uncontrolled hyperglycemia -Your hemoglobin A1c was 10 with a goal being 7 Discharge Orders/Prescriptions Prescriptions: New aspirin [Adult Aspirin Regimen] 81 mg tablet,delayed release (DR/EC) 81 mg PO DAILY Qty: 30 RF: 0 Continued rasagiline 1 MG tablet 1 mg PO DAILY RF: 0 Nuedexta 20/10 tablet 1 tab PO DAILY RF: 0 morphine 15 MG tablet 15 mg PO BID RF: 0 gabapentin 600 tablet 900 mg PO BID RF: 0 clonazepam 1 MG tablet 1 mg PO QHS RF: 0 esomeprazole magnesium 40 MG capsule 40 mg PO DAILY RF: 0 escitalopram oxalate 10 MG tablet 10 mg PO DAILY RF: 0 dulaglutide 0.75 MG/0.5 ML pen injector 0.75 mg SQ QWEEK RF: 0 glimepiride 4 tablet 4 mg PO DAILY RF: 0 oxycodone-acetaminophen 1 TABLET tablet 1 tab PO BID RF: 0 propranolol 20 MG tablet 60 mg PO BID RF: 0 tizanidine 4 MG capsule 4 mg PO QHS RF: 0 carbidopa-levodopa 25-100 mg tablet extended release 1 tab PO TID RF: 0 Referrals / Follow Up: Clemente Randhawa MD [Primary Care Provider] - Within 2 Weeks Disposition Disposition (needs filled in before D/C Order can be placed): Home, Self Care Charges/Coding Visit Charges Inpatient E&M: [address] [facility]
--- NOTE | 2021-04-25 16:45 | PHA.DC.MR ---
Pharmacy Service has performed discharge medication reconciliation for this patient. The patient's discharge medication list was reviewed for discrepancies and discrepancies were resolved. Home Medications rasagiline 1 mg PO DAILY 03/17/13 Nuedexta 04/04 1 tab PO DAILY 03/18/13 morphine 15 mg PO BID 01/15/15 clonazepam 1 mg PO QHS 03/04/19 dulaglutide 0.75 mg SQ QWEEK 03/04/19 escitalopram oxalate 10 mg PO DAILY 03/04/19 esomeprazole magnesium 40 mg PO DAILY 03/04/19 gabapentin 900 mg PO BID 03/04/19 glimepiride 4 mg PO DAILY 03/18/19 oxycodone-acetaminophen 1 tab PO BID 03/18/19 propranolol 60 mg PO BID 08/16/19 tizanidine 4 mg PO QHS 08/16/19 carbidopa-levodopa 1 tab PO TID 09/06/19
== END 2021-04-25 16:40 | disposition home or self-care (01) ==
LOC: ED 19:33 → PCU 20:29
PROVIDERS: Admitting Provider Hospitalist; Emergency Provider Student in an Organized Health Care Education/Training Program; PCP Family Medicine; Visit Provider Internal Medicine
DX: R07.89 Other chest pain (principal); E11.65 Type 2 diabetes mellitus with hyperglycemia; R47.81 Slurred speech; I10 Essential (primary) hypertension; G20 Parkinson's disease; M32.9 Systemic lupus erythematosus, unspecified; E11.40 Type 2 diabetes mellitus with diabetic neuropathy, unspecified; R06.02 Shortness of breath; R44.1 Visual hallucinations; G89.29 Other chronic pain; R29.810 Facial weakness; R53.1 Weakness; K21.9 Gastro-esophageal reflux disease without esophagitis; G47.33 Obstructive sleep apnea (adult) (pediatric); F41.9 Anxiety disorder, unspecified; F32.A Depression, unspecified; E78.5 Hyperlipidemia, unspecified; Z79.899 Other long term (current) drug therapy; Z79.84 Long term (current) use of oral hypoglycemic drugs
CPT/HCPCS: 36415; 70450; 70544; 70547; 70551; 71045; 71275; 78452; 80048; 80053; 80061; 82962; 83036; 84484; 85025; 85379; 93005; 93017; 93306; 96361; 96374; 99218; 99285; A9500; J7030; Q9957; Q9967; A4216; C8929; G0378; J2785

== ENCOUNTER → 2021-05-09 16:49 | Outpatient (CLI) | payer MEDICARE, MEDICAID, SELFPAY ==
--- NOTE | 2021-05-09 17:18 | MRI_ITS ---
STUDY: MRI LUMBAR SPINE WITHOUT CONTRAST REASON FOR EXAM: Female, 61 years old. NEUROGENIC CLAUDICATION DUE TO LUMBAR STENOSIS, low back pain TECHNIQUE: Standardized fat and water weighted pulse sequences were obtained in the sagittal and axial planes. COMPARISON: X-ray the lumbar spine dated May 02, 2020 FINDINGS: No marrow edema or fracture or compression deformity is present. Normal lumbar lordosis. There is a dextroscoliosis of the lumbar spine. Normal conus medullaris that terminates at the T12-L1 level. L1-2: Mild disc space narrowing with a diffuse disc spur complex. Normal bilateral facet joints. Normal central canal and bilateral lateral recesses. Normal bilateral intervertebral neural foramina. L2-3: Moderate disc space narrowing with a diffuse disc osteophyte complex contributing to mild central canal stenosis. The facet joints are mildly hypertrophied and fluid distended. Normal bilateral lateral recesses. Normal bilateral intervertebral neural foramina. Mild retrolisthesis of L2 on L3 of 2 to 3 mm. L3-4: Mild anterior endplate spurring noted. Normal disc height, hydration and morphology. Normal bilateral facet joints. Normal central canal and bilateral lateral recesses. Normal bilateral intervertebral neural foramina. L4-5: Mild endplate spurring noted. Diffuse disc desiccation noted. Normal disc height and morphology. Normal bilateral facet joints. Normal central canal and bilateral lateral recesses. Normal bilateral intervertebral neural foramina. L5-S1: Normal endplates. Interbody grafts and posterior decompressive defect are stable. The nerve roots are adhesed to the thecal sac in peripherally oriented compatible with arachnoiditis. Normal disc height, hydration and morphology. Mild facet joint hypertrophy and degeneration noted. Normal central canal and bilateral lateral recesses. Normal bilateral intervertebral neural foramina. Normal visualized sacral ala. There is mild paraspinal muscular atrophy. Appearance of extrarenal collecting systems bilaterally. MRI/Spine Lumbar (Routine) IMPRESSION: 1. Multilevel degenerative changes, as described above. 2. Mild central canal stenosis at L2-L3 3. Posterior decompressive defect and interbody graft at L5-S1 4. The nerve roots are adhesed to the thecal sac at the L5-S1 level in peripherally oriented compatible with arachnoiditis. Electronically Signed: Charanjit Montez MD at 23:56 EST , Service support ,
== END ==
PROVIDERS: PCP Family Medicine; Visit Provider Psychiatry & Neurology Neurology
DX: M48.062 Spinal stenosis, lumbar region with neurogenic claudication (principal)
CPT/HCPCS: 72148

== ENCOUNTER 2021-09-05 17:48 | Outpatient (CLI) | payer MEDICARE, SELFPAY | END 2021-09-05 23:59 | disposition home or self-care (01) | PROVIDERS: PCP Family Medicine; Visit Provider Nurse Practitioner Family | DX: N93.9 Abnormal uterine and vaginal bleeding, unspecified (principal) | CPT/HCPCS: 87070; 87205 ==

== ENCOUNTER → 2021-11-19 | Outpatient (CLI) | payer MEDICARE, SELFPAY ==
[2021-11-19 15:35] LABS: Hematocrit 46.2 % (37-47); Hemoglobin 15.2 g/dL (12.0-15.0); Mean Corp Hgb Conc 32.9 g/dL (32-36); Mean Corpuscular Hgb 30.8 pg (27.0-32.0); Mean Corpuscular Volume 93.7 fL (81-99); Platelet Count 249 K/mm3 (150-450); RBC Distribution Width CV 12.5 % (11.6-14.6); Red Blood Count 4.93 M/mm3 (4.2-5.4); White Blood Count 10.5 K/mm3 (4.4-11.0)
[2021-11-19 15:58] LABS: Erythrocyte Sedimentation Rate 12 mm/hr (0-30)
[2021-11-19 16:25] LABS: Vitamin D,25 Hydroxy 31.2 ng/mL
[2021-11-19 18:49] LABS: Ferritin 59 ng/mL (8-252); Iron 89 ug/dL (50-170); Magnesium 1.7 mg/dL (1.6-2.6); Thyroid Stim Hormone (TSH) 0.92 uIU/mL (0.358-3.74)
== END | disposition home or self-care (01) ==
LOC: MTLAB 11:47
PROVIDERS: PCP Family Medicine; Referring Provider Family Medicine; Visit Provider Family Medicine
DX: M79.606 Pain in leg, unspecified (principal); M32.9 Systemic lupus erythematosus, unspecified; E55.9 Vitamin D deficiency, unspecified; N93.9 Abnormal uterine and vaginal bleeding, unspecified
CPT/HCPCS: 36415; 82306; 82728; 83540; 83735; 84443; 85027; 85652

== ENCOUNTER → 2021-12-18 | Outpatient (CLI) | payer MEDICARE, MEDICAID, SELFPAY ==
--- NOTE | 2021-12-18 09:17 | BI_ITS ---
MAMMOGRAPHY - BILATERAL DIAGNOSTIC REASON FOR EXAM: Female, 61 years old. Bilateral breast lumps. PERTINENT HISTORY: Mother with breast cancer. Prior right stereotactic breast biopsy. TECHNIQUE: Digital bilateral breast jana (3D mammographic acquisition) in the CC and MLO projections. 2-D mediolateral oblique (MLO) and craniocaudad (CC) views of both breasts were obtained. CAD: Full Field Digital Mammography with Computer Added Detection was performed. COMPARISON: Comparison is made with prior mammogram dated 11/23/2015 and 07/25/2011. FINDINGS: Breast Composition: The breasts are heterogeneously dense, which may obscure small masses. There are no dominant masses or suspicious calcifications. A tissue clip marker is seen in the upper lateral aspect of the right breast. No other significant abnormalities are identified. There has been no significant change since the prior study. BI/DIAG MAMM W/CAD, BILAT IMPRESSION: Stable bilateral diagnostic mammogram. With the patient''s history of palpable abnormalities, targeted ultrasound of both breasts is recommended. ASSESSMENT CATEGORY: BIRADS Category 0: Incomplete. Need additional imaging evaluation. A letter regarding these results will be sent to the patient by the facility within 30 days. Approximately 10% of breast cancers are not detected by mammography. A normal mammogram should not delay biopsy of a clinically suspicious abnormality. Electronically Signed: Nolberto Dotson MD at 10:47 EDT ,
--- NOTE | 2021-12-18 10:21 | US_ITS ---
STUDY: ULTRASOUND BREAST - BILATERAL REASON FOR EXAM: Female, 61 years old. Bilateral breast lumps. TECHNIQUE: Axial and longitudinal images of the BILATERAL breast were performed with a high resolution ultrasound transducer. # OF IMAGES: 46 COMPARISON: Comparison is made with prior mammogram done earlier in the day. FINDINGS: BILATERAL Breast: There is a 7 mm x 5 mm x 3 mm well-defined hypoechoic nodule at the 6 o''clock position of the breast at 8 cm from nipple. This corresponds the palpable abnormality. This may represent a fibroadenoma although tissue diagnosis is recommended. The upper outer quadrant of the left breast was examined with ultrasound. There is dense fibroglandular tissue. No sonographic abnormality is seen. US/Breast Limited Unilateral IMPRESSION: The palpable abnormality at the 6 clock position of the right breast corresponds to a 7 mm x 5 mm x 2 mm well-defined hypoechoic nodule. Biopsy recommended. ASSESSMENT CATEGORY: BIRADS Category 4: Suspicious - Biopsy Should Be Considered. A letter regarding these results will be sent to the patient by the facility within 30 days. Electronically Signed: Nolberto Dotson MD at 12:28 EDT ,
== END | disposition home or self-care (01) ==
LOC: OPUS 09:13
PROVIDERS: PCP Family Medicine; Visit Provider Nurse Practitioner Family
DX: R92.8 Other abnormal and inconclusive findings on diagnostic imaging of breast (principal); N63.0 Unspecified lump in unspecified breast
CPT/HCPCS: 76642; 77062; 77066; G0279

== ENCOUNTER → 2021-12-27 | Outpatient (CLI) | payer MEDICARE, SELFPAY ==
--- NOTE | 2021-12-27 12:53 | US_ITS ---
STUDY: ULTRASOUND BREAST - RIGHT REASON FOR EXAM: Female, 61 years old. Right breast mass. TECHNIQUE: Axial and longitudinal images of the RIGHT breast were performed with a high resolution ultrasound transducer. # OF IMAGES: 16 COMPARISON: Comparison is made with prior study dated 12/18/2021. FINDINGS: RIGHT Breast: The previously seen 7 mm x 5 mm x 3 mm well-defined hypoechoic nodule at the 6 o''clock position of the breast at 8 cm from the nipple presently measures 3 mm x 4 mm x 2 mm. This most likely represents partial resorption of a complex cyst. US/Breast Limited Unilateral IMPRESSION: Decreased size of the hypoechoic nodule at the 6 o''clock position the breast at 8 cm from nipple. ASSESSMENT CATEGORY: BIRADS Category 2: Benign. A letter regarding these results will be sent to the patient by the facility within 30 days. Electronically Signed: Nolberto Dotson MD at 15:37 EDT ,
== END | disposition home or self-care (01) ==
LOC: BIRAD 12:51
PROVIDERS: PCP Family Medicine; Visit Provider Surgery
DX: R92.8 Other abnormal and inconclusive findings on diagnostic imaging of breast (principal)
CPT/HCPCS: 76642

== ENCOUNTER → 2023-01-13 | Outpatient (CLI) | payer MEDICARE, MEDICAID, SELFPAY ==
--- NOTE | 2023-01-13 17:06 | RAD_ITS ---
STUDY: X-RAY - LEFT KNEE REASON FOR EXAM: Female, 62 years old. pain TECHNIQUE: 4 view(s) of the knee. COMPARISON: January 12, 2023. FINDINGS: Normal visualized distal femur. Normal visualized proximal tibia and fibula. Normal proximal tibiofibular articulation. Mildly narrowed medial femorotibial compartment. Normal lateral femorotibial compartment. Mildly narrowed lateral compartment of the patellofemoral articulation. Small spurs arising off the upper and lower poles of the patella The soft tissue structures are unremarkable. No significant change since prior study RAD/Knee 4 or More Views IMPRESSION: [Osteoarthritic changes. No evidence for acute fracture or other significant bony pathology. Electronically Signed: Tavon Dubon MD at 22:55 EDT ,
== END | disposition home or self-care (01) ==
PROVIDERS: PCP Family Medicine; Referring Provider Family Medicine; Visit Provider Family Medicine
DX: M25.562 Pain in left knee (principal)
CPT/HCPCS: 73564

== ENCOUNTER → 2023-09-03 | Outpatient (CLI) | payer MEDICARE, MEDICAID, SELFPAY ==
[2023-09-03 12:28] LABS: Hematocrit 43.9 % (37-47); Hemoglobin 14.1 g/dL (12.0-15.0); Mean Corp Hgb Conc 32.1 g/dL (32-36); Mean Corpuscular Hgb 30.3 pg (27.0-32.0); Mean Corpuscular Volume 94.2 fL (81-99); Mean Platelet Vol. 13.4 fl (6.2-12.0); Platelet Count 189 K/mm3 (150-450); RBC Distribution Width CV 12.5 % (11.6-14.6); RBC Distribution Width SD 43.4 fl (35.1-43.9); Red Blood Count 4.66 M/mm3 (4.2-5.4); White Blood Count 7.5 K/mm3 (4.4-11.0)
[2023-09-03 12:57] LABS: Vitamin B12 318 pg/mL (211-911)
[2023-09-03 13:06] LABS: ALB/GLOB Ratio 0.9 RATIO (0.9-2.4); AST(SGOT) 48 U/L (15-37); Alanine Aminotransfer ALT/SGPT 41 U/L (13-56); Albumin, Serum 3.8 g/dL (3.2-5.0); Alkaline Phosphatase 110 U/L (45-117); Anion Gap 6 (5-15); BUN 13 mg/dL (7-18); BUN/Creat Ratio 21.8 RATIO (10-20); Chloride 102 mmol/L (98-107); Cholesterol 213 mg/dL (200); EST Glomerular Filtration Rate 108 mL/min (>60); Est Glom Filt Rate - Afr Amer 131 mL/min (>60); Globulin 4.3 g/dL (2.2-4.2); Glucose 214 mg/dL (74-106); High Density Lipoprotein 35 mg/dL; Potassium 3.7 mmol/L (3.5-5.1); Protein, Total 8.1 g/dL (6.4-8.2); Sodium Level 138 mmol/L (136-145); Thyroid Stim Hormone (TSH) 2.81 uIU/mL (0.358-3.74); Triglycerides 249 mg/dL; Very Low Density Lipoprotein 50 mg/dL (5-40)
== END | disposition home or self-care (01) ==
PROVIDERS: PCP Family Medicine; Referring Provider Family Medicine; Visit Provider Family Medicine
DX: F32.A Depression, unspecified (principal); E11.65 Type 2 diabetes mellitus with hyperglycemia
CPT/HCPCS: 36415; 80053; 80061; 82607; 84443; 85027

== ENCOUNTER → 2024-07-08 | Outpatient (CLI) | payer MEDICARE, MEDICAID, SELFPAY ==
[2024-07-08 15:36] LABS: ALB/GLOB Ratio 0.8 RATIO (0.9-2.4); AST(SGOT) 50 U/L (15-37); Alanine Aminotransfer ALT/SGPT 49 U/L (13-56); Albumin, Serum 3.7 g/dL (3.2-5.0); Alkaline Phosphatase 90 U/L (45-117); Anion Gap 9 (5-15); BUN 11 mg/dL (7-18); BUN/Creat Ratio 14.5 RATIO (10-20); Calcium,Total 9.4 mg/dL (8.5-10.1); Chloride 101 mmol/L (98-107); Cholesterol 129 mg/dL (200); Creatinine, Serum 0.76 mg/dL (0.55-1.02); EST Glomerular Filtration Rate 82 mL/min (>60); Est Glom Filt Rate - Afr Amer 99 mL/min (>60); Globulin 4.4 g/dL (2.2-4.2); Glucose 267 mg/dL (74-106); High Density Lipoprotein 40 mg/dL; Protein, Total 8.1 g/dL (6.4-8.2); Sodium Level 137 mmol/L (136-145); Triglycerides 180 mg/dL; Very Low Density Lipoprotein 36 mg/dL (5-40)
== END | disposition home or self-care (01) ==
LOC: MTLAB 13:02
PROVIDERS: PCP Family Medicine; Referring Provider Family Medicine; Visit Provider Family Medicine
DX: E11.65 Type 2 diabetes mellitus with hyperglycemia (principal)
CPT/HCPCS: 36415; 80053; 80061

== ENCOUNTER → 2024-07-15 | Outpatient (CLI) | payer MEDICARE, MEDICAID, SELFPAY ==
[2024-07-16 16:08] LABS: Deamidated Gliadin IgA 10 units (0-19); Deamidated Gliadin IgG 3 units (0-19); Endomysial Antibody IgA Negative (Negative); Immunoglobulin A 646 mg/dL (87-352); t-Transglutaminase IgA <2 U/mL (0-3)
== END | disposition home or self-care (01) ==
LOC: MFPLAB 10:45
PROVIDERS: PCP Family Medicine; Visit Provider Family Medicine
DX: K31.84 Gastroparesis (principal)
CPT/HCPCS: 36415; 82784; 83516; 86255

== ENCOUNTER 2024-10-06 13:56 | Day surgery (SDC) | payer MEDICARE, MEDICAID, SELFPAY ==
--- NOTE | 2024-10-04 10:34 | PAT.ANESEVAL ---
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 When Was Last Pacemaker Check QUESTION #4 FULL TEXT: You/Your Family Experience fever (hyperthermia) with Anesthesia Last Oral Intake Last Oral intake: Last Oral Intake NPO since Meds taken in AM with sips of water? 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 Female Yes 10/04/24 10:15 HX of Motion Sickness No 10/04/24 10:15 HX of N/V After Surgery No 10/04/24 10:15 Non-Smoker Yes 10/04/24 10:15 Duration of Surgery greater No 10/04/24 10:15 than 60 minutes Number of Risk Factors 2 10/04/24 10:15 PONV Score Moderate Risk 10/04/24 10:15 Height & Weight Height & Weight: Anesthesia: Height & Weight Height 5 ft 7 in 01/31/22 15:37 Respiratory Assessment Respiratory Assessment - transformer shop supervisor: Respiratory Tract Infection Hx - transformer shop supervisor Hx Respiratory Tract Infection No 10/04/24 10:15 STOP Sleep Apnea STOP Sleep Apnea - transformer shop supervisor: STOP Sleep Apnea - transformer shop supervisor Hx Hypertension Yes: CONTROLLED WITH MED 10/04/24 10:15 Hx Sleep Apnea No 10/04/24 10:15 CPAP Yes 04/24/21 20:32 BIPAP No 04/24/21 20:32 Do you snore loudly (louder No 10/04/24 10:15 than talking or can be heard Do you often feel tired/ No 10/04/24 10:15 fatigued/ sleepy during daytime? Has anyone observed you stop No 10/04/24 10:15 breathing during sleep? STOP Results Negative 10/04/24 10:15 QUESTION #5 FULL TEXT : Do you snore loudly (louder than talking or can be heard through closed doors)? 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 Specify any problems Hx of Preganancy in last 3 No 10/04/24 10:15 Months Nurse Filling Out Transfusion DSCHRIBER 10/04/24 10:15 & Questions: Date: 10/04/24 10/04/24 10:15 Time: 10:16 10/04/24 10:15 Patient unable to answer at this time (ie. confused, unrespo /Reproduction History /Reproductive History - transformer shop supervisor: /Reproductive Hx- transformer shop supervisor Hx Now No 10/04/24 10:15 Gestational Age (in weeks): EDC: Hx Hx Para Hx Section SAB No 10/04/24 10:15 PFSH Medical History (Updated 10/04/24 @ 10:23 by Caprice Billingsley) Wears glasses Wears dentures Post-menopausal Depression Insulin dependent diabetes mellitus Arthritis High cholesterol Fatty liver Restless legs Back pain Dietary restriction History of diverticulitis Gastric reflux Non-smoker History of pain when walking History of echocardiogram History of stress test Septic shock Parkinson disease Hypertension Arachnoiditis Lupus Home Medications ?Medication ?Instructions ?Recorded ?Last Taken ?Type metformin 1,000 mg tablet 1,000 mg PO BID 12/25/21 Unknown History propranolol 20 mg tablet 20 mg PO BID 12/25/21 Unknown History escitalopram oxalate 20 mg tablet 20 mg PO QDAY 08/11/24 Unknown History (Lexapro) fentanyl 25 mcg/hr transdermal 1 patch transdermal Q72H 08/11/24 Unknown History patch insulin degludec 100 unit/mL (3 70 unit subcut DAILY 08/11/24 Unknown History mL) subcutaneous pen (Tresiba FlexTouch U-100 insulin) meloxicam 7.5 mg tablet 7.5 mg PO QDAY 08/11/24 Unknown History omeprazole 40 mg capsule,delayed 40 mg PO QDAY 08/11/24 Unknown History release semaglutide 1 mg/dose (4 mg/3 mL) 1 mg subcut WE 08/11/24 09/22/24 History subcutaneous pen injector (Ozempic) insulin degludec 100 unit/mL (3 60 unit subcut QHS 10/04/24 Unknown History mL) subcutaneous pen (Tresiba FlexTouch U-100 insulin) mirtazapine 30 mg tablet 30 mg PO QHS 10/04/24 Unknown History rosuvastatin 5 mg tablet 5 mg PO QHS 10/04/24 Unknown History Allergy/AdvReac Type Severity Reaction Status Date / Time indomethacin (From Indocin) Allergy Rash Verified 10/04/24 10:11 indomethacin sodium (From Allergy Rash Verified 10/04/24 10:11 Indocin) Penicillins Allergy Rash Verified 10/04/24 10:11 amitriptyline AdvReac Intermediate hallucinati Verified 10/04/24 10:11 ons canagliflozin (From Invokana) AdvReac Mild UTI Verified 10/04/24 10:11 pioglitazone (From Actos) AdvReac Mild migraine Verified 10/04/24 10:11 clarithromycin (From Biaxin) AdvReac Diarrhea Verified 10/04/24 10:11 Family History Brother Heart disease Mother Osteoarthritis CAD (coronary artery disease) Hypertension Diabetes Breast cancer Father CVA (cerebral vascular accident) Colon cancer CAD (coronary artery disease) Surgical History (Updated 10/04/24 @ 10:23 by Caprice Billingsley) History of esophagogastroduodenoscopy (EGD) Hx of colonoscopy Status post carpal tunnel release S/P left knee surgery H/O: hysterectomy S/P cholecystectomy History of back surgery Social History (Updated 01/31/22 @ 15:37 by Yoselin Paige) Smoking Status: Never smoker alcohol intake: never substance use type: does not use caffeine: No seatbelt use: always do you feel safe at home: Yes additional social history: disability- Audit: Pertinent Findings Pertinent Findings EKG Perinent findings: 04/24/2021. Normal sinus rhythm 67 bpm. Stress test pertinent findings: 04/25/2021. Negative EF 70%. Echo (EF%) pertinent findings: 04/24/2021. EF 60%. Right ventricular systolic pressure equals 21 mmHg. Recommendation Anesthesia Recommendation Anesthesia recommendation: OPTIMIZED for anesthesia
--- NOTE | 2024-10-06 14:05 | PCM.PRE.AN2 ---
ASA Classification* ASA Classification ASA Classification: 3 Assessment & Plan Anesthesia* Anesthesia Assessment Anesthesia Assessment: Discussed sedation and/or anesthesia options, risks, benefits, and alternatives with patient/parents/legal guardian/POA. Questions invited. The patient/parents/legal guardian/POA seems to understand and agrees to proceed with anesthesia plan. Reviewed the physical assessment, medical history, allergy history and patient home medications list prior to surgery/procedure/anesthetic and documented any changes. Performed airway and anesthesia risk assessments. Anesthesia Type Anesthesia Type: MAC Anesthesia Focused Assessment* Airway Assessment Mouth opens: >3 cm Mallampati Score: II Focused Labs Anesthesia Preop lab: CBC WBC 7.5 K/mm3 (4.4-11.0) 09/03/23 09:09/03/23 RBC 4.66 M/mm3 (4.2-5.4) 09/03/23 09:09/03/23 Hgb 14.1 g/dL (12.0-15.0) 09/03/23 09:09/03/23 Hct 43.9 % (37-47) 09/03/23 09:32 09/03/23 Plt Count 189 K/mm3 (150-450) 09/03/23 09:32 09/03/23 CHEMISTRY Potassium 4.0 mmol/L (3.5-5.1) 07/08/24 13:10 07/08/24 Sodium 137 mmol/L (136-145) 07/08/24 13:10 07/08/24 Magnesium 1.7 mg/dL (1.6-2.6) 11/19/21 11:50 11/19/21 BUN 11 mg/dL (7-18) 07/08/24 13:10 07/08/24 Creatinine 0.76 mg/dL (0.55-1.02) 07/08/24 13:10 07/08/24 Glucose 267 mg/dL (74-106) H 07/08/24 13:10 07/08/24 POC Glucose 156 mg/dL (70-110) H 04/25/21 15:59 04/25/21 TSH 2.81 uIU/mL (0.358-3.74) 09/03/23 09:32 09/03/23 COAG PT 13.6 SECONDS (11.7-14.9) 03/18/19 15:40 03/18/19 Pre-Assessment Diagnosis/Proposed Procedure Planned Operative Procedure(s): EGD/CSCOPE Anesthesia History 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 When Was Last Pacemaker Check QUESTION #4 FULL TEXT: You/Your Family Experience fever (hyperthermia) with Anesthesia Last Oral Intake Last Oral intake: Last Oral Intake NPO since Meds taken in AM with sips of water? 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 Has anyone observed you stop No 10/04/24 10:15 breathing during sleep? STOP Results Negative 10/04/24 10:15 QUESTION #5 FULL TEXT : Do you snore loudly (louder than talking or can be heard through closed doors)? 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 Specify any problems Hx of Preganancy in last 3 No 10/04/24 10:15 Months Nurse Filling Out Transfusion DSCHRIBER 10/04/24 10:15 & Questions: Date: 10/04/24 10/04/24 10:15 Time: 10:16 10/04/24 10:15 Patient unable to answer at this time (ie. 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: /Reproductive Hx- retail beauty specialist Hx Now No 10/04/24 10:15 Gestational Age (in weeks): EDC: Hx Hx Para Hx Section SAB No 10/04/24 10:15 Active Medications Active Medications: Current Medications Generic Name Dose Route Start Last Admin Trade Name Freq PRN Reason Stop Dose Admin Sodium Chloride 1,000 mls @ 15 mls/hr 10/06/24 14:05 IV .Q48H ROXY PFSH Medical History Wears glasses Wears dentures Post-menopausal Depression Insulin dependent diabetes mellitus Arthritis High cholesterol Fatty liver Restless legs Back pain Dietary restriction History of diverticulitis Gastric reflux Non-smoker History of pain when walking History of echocardiogram History of stress test Septic shock Parkinson disease Hypertension Arachnoiditis Lupus Home Medications ?Medication ?Instructions ?Recorded ?Last Taken ?Type metformin 1,000 mg tablet 1,000 mg PO BID 12/25/21 Unknown History propranolol 20 mg tablet 20 mg PO BID 12/25/21 Unknown History escitalopram oxalate 20 mg tablet 20 mg PO QDAY 08/11/24 Unknown History (Lexapro) fentanyl 25 mcg/hr transdermal 1 patch transdermal Q72H 08/11/24 Unknown History patch insulin degludec 100 unit/mL (3 70 unit subcut DAILY 08/11/24 Unknown History mL) subcutaneous pen (Tresiba FlexTouch U-100 insulin) meloxicam 7.5 mg tablet 7.5 mg PO QDAY 08/11/24 Unknown History omeprazole 40 mg capsule,delayed 40 mg PO QDAY 08/11/24 Unknown History release semaglutide 1 mg/dose (4 mg/3 mL) 1 mg subcut WE 08/11/24 09/22/24 History subcutaneous pen injector (Ozempic) insulin degludec 100 unit/mL (3 60 unit subcut QHS 10/04/24 Unknown History mL) subcutaneous pen (Tresiba FlexTouch U-100 insulin) mirtazapine 30 mg tablet 30 mg PO QHS 10/04/24 Unknown History rosuvastatin 5 mg tablet 5 mg PO QHS 10/04/24 Unknown History Allergy/AdvReac Type Severity Reaction Status Date / Time indomethacin (From Indocin) Allergy Rash Verified 10/04/24 10:11 indomethacin sodium (From Allergy Rash Verified 10/04/24 10:11 Indocin) Penicillins Allergy Rash Verified 10/04/24 10:11 amitriptyline AdvReac Intermediate hallucinati Verified 10/04/24 10:11 ons canagliflozin (From Invokana) AdvReac Mild UTI Verified 10/04/24 10:11 pioglitazone (From Actos) AdvReac Mild migraine Verified 10/04/24 10:11 clarithromycin (From Biaxin) AdvReac Diarrhea Verified 10/04/24 10:11 Family History Brother Heart disease Mother Osteoarthritis CAD (coronary artery disease) Hypertension Diabetes Breast cancer Father CVA (cerebral vascular accident) Colon cancer CAD (coronary artery disease) Surgical History History of esophagogastroduodenoscopy (EGD) Hx of colonoscopy Status post carpal tunnel release S/P left knee surgery H/O: hysterectomy S/P cholecystectomy History of back surgery Social History Smoking Status: Never smoker alcohol intake: never substance use type: does not use caffeine: No seatbelt use: always do you feel safe at home: Yes additional social history: disability- Review of Systems (Anesthesia) ROS Narrative System reviewed and no additional complaints, except as documented.
[2024-10-06 14:27] VITALS: BP 128/81; PULSE 82; RESP 16; TEMP 36.6; O2SAT 98; BMI 30.6
--- NOTE | 2024-10-06 14:31 | PCM.HP.STD ---
HPI - General General Date of Admission: 10/06/24 Date of Service: 10/06/24 Chief Complaint: diarrhea HPI Narrative [facility] HPI Chief Complaint: LUQ pain and diarrhea Details: ROSEANNA SOTO, is a 64 F who presents for the evaluation of abdominal pain and diarrhea Over the past year pt had been having nausea, LUQ pain and diarrhea. Her pain is achy and typically happening after eating a meal. She has not noticed any alleviating factors.She does not have any heartburn but takes Nexium daily. She becomes nauseous after eating as well. She has a hx of gastroparesis diagnosed about 20 years ago. Her diarrhea is random and not associated with pain. She does not ever have formed stools. She has up tp 4 bm per day that are soft. She notes that her daughter was diagnosed with celiac. SHe did have a celiac panel that was negative. She does not noticed any correlation with certain foods. Her last EGD and colonoscopy was about 5 years ago. She mentions having polyps in the past. [facility] Medical History Wears glasses Wears dentures Post-menopausal Depression Insulin dependent diabetes mellitus Arthritis High cholesterol Fatty liver Restless legs Back pain Dietary restriction History of diverticulitis Gastric reflux Non-smoker History of pain when walking History of echocardiogram History of stress test Septic shock Parkinson disease Hypertension Arachnoiditis Lupus Home Medications ?Medication ?Instructions ?Recorded ?Last Taken ?Type metformin 1,000 mg tablet 1,000 mg PO BID 12/25/21 Unknown History propranolol 20 mg tablet 20 mg PO BID 12/25/21 10/06/24 08:00 History escitalopram oxalate 20 mg tablet 20 mg PO QDAY 08/11/24 Unknown History (Lexapro) fentanyl 25 mcg/hr transdermal 1 patch transdermal Q72H 08/11/24 10/06/24 History patch insulin degludec 100 unit/mL (3 70 unit subcut DAILY 08/11/24 Unknown History mL) subcutaneous pen (Tresiba FlexTouch U-100 insulin) meloxicam 7.5 mg tablet 7.5 mg PO QDAY 08/11/24 Unknown History omeprazole 40 mg capsule,delayed 40 mg PO QDAY 08/11/24 Unknown History release semaglutide 1 mg/dose (4 mg/3 mL) 1 mg subcut WE 08/11/24 09/22/24 History subcutaneous pen injector (Ozempic) insulin degludec 100 unit/mL (3 60 unit subcut QHS 10/04/24 Unknown History mL) subcutaneous pen (Tresiba FlexTouch U-100 insulin) mirtazapine 30 mg tablet 30 mg PO QHS 10/04/24 Unknown History rosuvastatin 5 mg tablet 5 mg PO QHS 10/04/24 Unknown History Allergy/AdvReac Type Severity Reaction Status Date / Time indomethacin (From Indocin) Allergy Rash Verified 10/06/24 14:20 indomethacin sodium (From Allergy Rash Verified 10/06/24 14:20 Indocin) Penicillins Allergy Rash Verified 10/06/24 14:20 amitriptyline AdvReac Intermediate hallucinati Verified 10/06/24 14:20 ons canagliflozin (From Invokana) AdvReac Mild UTI Verified 10/06/24 14:20 pioglitazone (From Actos) AdvReac Mild migraine Verified 10/06/24 14:20 clarithromycin (From Biaxin) AdvReac Diarrhea Verified 10/06/24 14:20 Family History Brother Heart disease Mother Osteoarthritis CAD (coronary artery disease) Hypertension Diabetes Breast cancer Father CVA (cerebral vascular accident) Colon cancer CAD (coronary artery disease) Surgical History History of esophagogastroduodenoscopy (EGD) Hx of colonoscopy Status post carpal tunnel release S/P left knee surgery H/O: hysterectomy S/P cholecystectomy History of back surgery Social History Smoking Status: Never smoker alcohol intake: never substance use type: does not use caffeine: No seatbelt use: always do you feel safe at home: Yes additional social history: disability- ROS Constitutional Constitutional: Denies fatigue, fever(s), poor appetite, weight gain or weight loss Gastrointestinal Gastrointestinal: Denies belching, bloating, change in bowel habits, change in stool character, chewing difficulty, coffee ground emesis, constipation, cramping, diarrhea, dyspepsia, dysphagia, early satiety, excessive flatus, fecal incontinence, heartburn, hematemesis, hematochezia, hemorrhoids, loose stools, melena, nausea, odynophagia, rectal bleeding, tenesmus, vomiting or weight changes Physical Exam Const alert, oriented x3, no apparent distress and healthy appearing General Appearance: cooperative GI normal to inspection, nondistended, normoactive bowel sounds, soft to palpation, non-tender and non-distended Percussion: normal to percussion Rectal Exam: deferred Assessment & Plan Assessment/Plan (1) Nausea: (2) RUQ pain: (3) Loose stools: PLAN: Plan Assessment and Plan Assessment and Plan (1) Loose stools: Status: Acute Plan: This is a 64 yo female pt here today for evaluation of LUQ pain, nausea and loose stools. Pt has had these symptoms for a year now. Celiac panel was normal. CBC and CMP normal. She will undergo EGD and colonoscopy. I have ordered stool testing to rue out infection, inflammation or EPI that could contribute to loose stools. For her abd pain, I prescribed dicyclomine 10 mg BID PRN. Will consider further work up pending results -colonoscopy and EGD -Stool testing -Start dicyclomine PRN -f/u in 3 months (2) RUQ pain: Status: Acute (3) Nausea: Status: Acute Orders: Orders ENTERIC PATHOGEN PANEL STOOL Today K58.9 - Irritable bowel syndrome, unspecified, R19.5 - Other fecal abnormalities Pancreatic Elastase, Fecal Today R19.5 - Other fecal abnormalities Stool Lactoferrin/WBC Today K58.9 - Irritable bowel syndrome, unspecified, R19.5 - Other fecal abnormalities Ova and Parasites [id number] Today K58.9 - Irritable bowel syndrome, unspecified, R19.5 - Other fecal abnormalities Giardia Lamblia, Stool EIA Today R19.5 - Other fecal abnormalities Calprotectin, Stool Today R19.5 - Other fecal abnormalities CDIFF (PCR) Today R19.5 - Other fecal abnormalities Medications: New dicyclomine 10 mg PO BID 20 caps 1RF
[2024-10-06] MEDS: Lactated Ringers 1,000 ML 15 ML IV (14:45)
--- NOTE | 2024-10-06 15:00 | EGD_PTH ---
PATIENT: ROSEANNA SOTO LOC: EN U#:[id number] AGE/SX: 64/F ROOM: RE10/06/[address]: Dr. Polo Mac DO : 1960 BED: DIS: 10/06/2024 SPEC #: [id number] RECD: 10/07/24 08:38 STATUS: MAURO REHeidi #: [id number] HEAVEN: 10/06/24 15:[address]: Polo Mac DEPT: SURGICAL PATHOLOGY RECD BY: Sixto Crocker ENTERED: 10/07/24 08:39 SP TYPE: EGD BIOPSY DIONTE DR: Dr. Reed Vazquez MD Tissues: A - Duodenum, NOS B - Gastric mucous membrane C - Gastric mucous membrane D - COLON BIOPSY Procedures: Immunohistochemical Stains Surgery Specimen Level IV HEADER OPERATION: Colonoscopy, EGD with biopsy PRE-OP DIAGNOSIS: Nausea, right upper quadrant pain, loose stools TISSUE SUBMITTED: A- Duodenum biopsy, B- Antrum ulcer biopsy, C- Gastric ulcer biopsy, D- Random colon biopsy MICROSCOPIC DIAGNOSIS A. Small bowel, duodenum, biopsy: * Normal villous architecture with mildly increased intraepithelial lymphocytes - see note. Note: This pattern of injury is etiologically nonspecific?and the differential diagnosis includes sensitivity to gluten and non-gluten proteins, small intestinal bacterial overgrowth, stasis related changes, infection, protein calorie malnutrition, tropical sprue, and medication injury (NSAIDs, Olmesartan / Benicar, Mycophenolic acid, Idelalisib, for example). If celiac disease is a clinical concern, additional clinical studies, such as tTG-IgA, are recommended. B. Stomach, antrum, ulcer, biopsy: * Antral mucosa with active chronic gastritis. * IHC negative for H pylori organisms. C. Stomach, body, biopsy: * Oxyntic mucosa with chronic gastritis. * IHC negative for H pylori organisms. D. Colon, random, biopsy: * No specific pathologic change. * The histologic features of microscopic colitis are not demonstrated. MICROSCOPIC DESCRIPTION Slides are reviewed. These tests were developed and their performance characteristics determined by [facility]. They may not have been cleared or approved by the U.S. Food and Drug Administration. The FDA has determined that such clearance or approval is not necessary. The above immunohistochemical/dualISH markers are ordered and reviewed by the Pathologist. GROSS DESCRIPTION A. Received in formalin in a container labeled with the patient's name, date of , and duodenum biopsy are 2 wilson-pink fragments of mucosal tissue, each measuring 0.5 x 0.4 x 0.3 cm. Submitted in toto in A1. B. Received in formalin in a container labeled with the patient's name, date of , and antrum ulcer biopsy for H. pylori and path is a 0.6 x 0.3 x 0.2 cm fragment of wilson-pink mucosal tissue. Submitted in toto in B1. C. Received in formalin in a container labeled with the patient's name, date of , and gastric body biopsy for H. pylori and path are multiple wilson-pink fragments of mucosal tissue measuring 0.8 x 0.6 x 0.3 cm in aggregate. Submitted in toto in C1. D. Received in formalin in a container labeled with the patient's name, date of , and random colon biopsy are multiple wilson-pink fragments of mucosal tissue measuring 0.9 x 0.8 x 0.3 cm in aggregate. Submitted in toto in D1. [facility] 10/07/2024 CPT:47939f5,54840f0
[2024-10-06 15:15] LABS: Bedside Glucose 191 mg/dL (74-106)
[2024-10-06 15:30] VITALS: BP 128/81; BP 98/59; PULSE 84; RESP 16; TEMP 36.3; O2SAT 93
--- NOTE | 2024-10-06 15:33 | OP.CCLET_ITS ---
10/06/2024 Reed Vazquez MD [address] [place] [address] Re : Upper GI endoscopy procedure for Gregoria Divide Dear Dr. Vazquez This procedure was performed on Sunday, October 06, 2024. My impressions and recommendations are as follows: Impressions : - Small (< 5 mm) esophageal varices. - Portal hypertensive gastropathy. Biopsied. - No gross lesions in the entire examined duodenum. Biopsied. Recommendations : - Discharge patient to home. - Resume previous diet. - Continue present medications. - Await pathology results. My findings are described in the full procedure note, which is enclosed. If I can be of further assistance, please feel free to contact me at . Sincerely, Polo Mac, 10/06/2024 3:32:36 PM This report has been signed electronically.
--- NOTE | 2024-10-06 15:33 | OP.EGD_ITS ---
Patient Name: Gregoria Jones Procedure Date: 10/06/2024 2:32 PM Date of : 1960 Age: 64 Procedure: Upper GI endoscopy Indications: Epigastric abdominal pain, Functional Dyspepsia, Heartburn Providers: Polo Mac DO Medicines: Monitored Anesthesia Care Patient Profile: This is a 64 year old female. Refer to note in patient chart for documentation of history and physical. Patient has symptoms of chronic abdominal distention, chronic epigastric abdominal pain and chronic dyspepsia. Complications: No immediate complications. Procedure: Pre-Anesthesia Assessment: - Prior to the procedure, a History and Physical was performed, and patient medications and allergies were reviewed. The patient is competent. The risks and benefits of the procedure and the sedation options and risks were discussed with the patient. All questions were answered and informed consent was obtained. Patient identification and proposed procedure were verified by the physician in the pre-procedure area. Mental Status Examination: alert and oriented. Airway Examination: normal oropharyngeal airway and neck mobility. Respiratory Examination: clear to auscultation. CV Examination: normal. Prophylactic Antibiotics: The patient does not require prophylactic antibiotics. Prior Anticoagulants: The patient has taken no anticoagulant or antiplatelet agents except for NSAID medication. ASA Grade Assessment: II - A patient with mild systemic disease. After reviewing the risks and benefits, the patient was deemed in satisfactory condition to undergo the procedure. The anesthesia plan was to use monitored anesthesia care (MAC). Immediately prior to administration of medications, the patient was re-assessed for adequacy to receive sedatives. The heart rate, respiratory rate, oxygen saturations, blood pressure, adequacy of pulmonary ventilation, and response to care were monitored throughout the procedure. The physical status of the patient was re-assessed after the procedure. After obtaining informed consent, the endoscope was passed under direct vision. Throughout the procedure, the patient's blood pressure, pulse, and oxygen saturations were monitored continuously. The Colonoscope was introduced through the mouth, and advanced to the third part of the duodenum. Small bowel enteroscopy was deemed necessary. The upper GI endoscopy was accomplished with ease. The patient tolerated the procedure well. Scope In: 2:58:43 PM Scope Out: 3:03:42 PM Total Procedure Duration Time 0 hours 4 minutes 59 seconds Findings: Small (< 5 mm) varices were found in the lower third of the esophagus. They were 5 mm in largest diameter. Moderate portal hypertensive gastropathy was found in the entire examined stomach. Biopsies were taken with a cold forceps for histology. Verification of patient identification for the specimen was done. Estimated blood loss was minimal. Biopsies were taken with a cold forceps for Helicobacter pylori testing. Verification of patient identification for the specimen was done. Estimated blood loss was minimal. No gross lesions were noted in the entire examined duodenum. Biopsies were taken with a cold forceps for histology. Verification of patient identification for the specimen was done. Estimated blood loss was minimal. One non-bleeding superficial gastric ulcer with no stigmata of bleeding was found in the gastric antrum. The lesion was 3 mm in largest dimension. Biopsies were taken with a cold forceps for histology. Verification of patient identification for the specimen was done. Estimated blood loss was minimal. Impression: - Small (< 5 mm) esophageal varices. - Portal hypertensive gastropathy. Biopsied. - No gross lesions in the entire examined duodenum. Biopsied. Recommendation: - Discharge patient to home. - Resume previous diet. - Continue present medications. - Await pathology results. Procedure Code(s): --- Professional --- 87693, Small intestinal endoscopy, enteroscopy beyond second portion of duodenum, not including ileum; with biopsy, single or multiple CPT copyright 2021 [employer]. All rights reserved. The codes documented in this report are preliminary and upon mold finisher review may be revised to meet current compliance requirements. Polo Mac DO 10/06/2024 3:32:36 PM This report has been signed electronically. Number of Addenda: 0 Note Initiated On: 10/06/2024 2:32 PM
--- NOTE | 2024-10-06 15:33 | PCM.POST.ANE ---
Anesthesia: Postop Eval I Current Vital Signs Temperature: 97.4 F Pulse Rate: 86 Blood Pressure: 98/59 Respiratory Rate: 16 Pulse Ox: 94 Oxygen Delivery Method: Room Air Assessment Airway patent: Yes Spontaneous unlabored respirations: Yes Mental status: Awake and Calm nausea: No Vomiting: No Anesthesia Complication: No Fluid Hydration Crystalloid volume administer (ml): 600 Total IV fluid infused: 600 Progress Note Anesthesia document: Postop Eval 1 completed: Yes
[2024-10-06 15:34] VITALS: BP 98/59; PULSE 86; RESP 16; TEMP 36.3; O2SAT 94
[2024-10-06 15:35] VITALS: BP 128/81; BP 98/52; PULSE 81; RESP 16; O2SAT 92
--- NOTE | 2024-10-06 15:35 | OP.CCLET_ITS ---
10/06/2024 Reed Vazquez MD [address] [id number] Re : Colonoscopy procedure for Gregoria Jones Dear Dr. Vazquez This procedure was performed on Sunday, October 06, 2024. My impressions and recommendations are as follows: Impressions : - Diverticulosis in the sigmoid colon. - Congested mucosa in the sigmoid colon, in the transverse colon, at the hepatic flexure and in the ascending colon. Biopsied. - The examination was otherwise normal on direct and retroflexion views. Recommendations : - Discharge patient to home. - Resume previous diet. - Continue present medications. - Await pathology results. - Repeat colonoscopy for surveillance based on pathology results. - Return to GI office. My findings are described in the full procedure note, which is enclosed. If I can be of further assistance, please feel free to contact me at . Sincerely, Polo Mac, 10/06/2024 3:35:20 PM This report has been signed electronically.
--- NOTE | 2024-10-06 15:35 | OP.COLON_ITS ---
Patient Name: Gregoria Jones Procedure Date: 10/06/2024 3:03 PM Date of : 1960 Age: 64 Procedure: Colonoscopy Indications: Generalized abdominal pain, Clinically significant diarrhea of unexplained origin Providers: Polo Mac DO Medicines: Monitored Anesthesia Care Patient Profile: This is a 64 year old female. Refer to note in patient chart for documentation of history and physical. Patient has symptoms of chronic abdominal distention, chronic epigastric abdominal pain and chronic dyspepsia. Last Colonoscopy: date unknown. Unable to locate last colonoscopy report. Complications: No immediate complications. Procedure: Pre-Anesthesia Assessment: - Prior to the procedure, a History and Physical was performed, and patient medications and allergies were reviewed. The patient is competent. The risks and benefits of the procedure and the sedation options and risks were discussed with the patient. All questions were answered and informed consent was obtained. Patient identification and proposed procedure were verified by the physician in the pre-procedure area. Mental Status Examination: alert and oriented. Airway Examination: normal oropharyngeal airway and neck mobility. Respiratory Examination: clear to auscultation. CV Examination: normal. Prophylactic Antibiotics: The patient does not require prophylactic antibiotics. Prior Anticoagulants: The patient has taken no anticoagulant or antiplatelet agents except for NSAID medication. ASA Grade Assessment: II - A patient with mild systemic disease. After reviewing the risks and benefits, the patient was deemed in satisfactory condition to undergo the procedure. The anesthesia plan was to use monitored anesthesia care (MAC). Immediately prior to administration of medications, the patient was re-assessed for adequacy to receive sedatives. The heart rate, respiratory rate, oxygen saturations, blood pressure, adequacy of pulmonary ventilation, and response to care were monitored throughout the procedure. The physical status of the patient was re-assessed after the procedure. After I obtained informed consent, the scope was passed under direct vision. Throughout the procedure, the patient's blood pressure, pulse, and oxygen saturations were monitored continuously. The Colonoscope was introduced through the anus and advanced to the cecum, identified by appendiceal orifice and ileocecal valve. The colonoscopy was performed without difficulty. The patient tolerated the procedure well. The quality of the bowel preparation was adequate. The ileocecal valve, appendiceal orifice, and rectum were photographed. Scope In: 3:07:24 PM Scope Withdrawal Time 0 hours 12 minutes 39 seconds Scope Out: 3:23:54 PM Total Procedure Duration Time 0 hours 16 minutes 30 seconds Findings: The perianal and digital rectal examinations were normal. A few small-mouthed diverticula were found in the sigmoid colon. An area of mildly congested mucosa was found in the sigmoid colon, in the transverse colon, at the hepatic flexure and in the ascending colon. Biopsies were taken with a cold forceps for histology. Verification of patient identification for the specimen was done. Estimated blood loss was minimal. The exam was otherwise without abnormality on direct and retroflexion views. Impression: - Diverticulosis in the sigmoid colon. - Congested mucosa in the sigmoid colon, in the transverse colon, at the hepatic flexure and in the ascending colon. Biopsied. - The examination was otherwise normal on direct and retroflexion views. Recommendation: - Discharge patient to home. - Resume previous diet. - Continue present medications. - Await pathology results. - Repeat colonoscopy for surveillance based on pathology results. - Return to GI office. Procedure Code(s): --- Professional --- 80038, Colonoscopy, flexible; with biopsy, single or multiple CPT copyright 2021 [employer]. All rights reserved. The codes documented in this report are preliminary and upon certified medical coder review may be revised to meet current compliance requirements. Polo Mac DO 10/06/2024 3:35:20 PM This report has been signed electronically. Number of Addenda: 0 Note Initiated On: 10/06/2024 3:03 PM
[2024-10-06 15:40] VITALS: BP 102/65; BP 128/81; PULSE 80; RESP 16; TEMP 36.3; O2SAT 92
[2024-10-06 16:01] VITALS: BP 128/81
--- NOTE | 2024-10-06 16:06 | PCM.POSTANE2 ---
Anesthesia Postop Eval I Sum Postop Eval Completion status Anesthesia document: Postop Eval 1 completed: Yes Anesthesia Postop Eval I Summary Anesthesia Postop Eval I Summary: Anesthesia Postop Eval I: Assessment Summary Airway patent Yes 10/06/24 15:34 [email or web address] Spontaneous unlabored Yes 10/06/24 15:34 [email or web address] respirations Mental status Awake,Calm 10/06/24 15:34 [email or web address] nausea No 10/06/24 15:34 [email or web address] Vomiting No 10/06/24 15:34 [email or web address] Anesthesia Postop Eval I: Fluid Summary Crystalloid volume administer 600 10/06/24 15:34 [email or web address] (ml) Colloids volume administered ( ml) Blood Product volume administered (ml) Total IV fluid infused 600 10/06/24 15:34 [email or web address] Anesthesia Postop Eval I: Summary Notes Anesthesia Complication No 10/06/24 15:34 [email or web address] Anesthesia Complication Comment: Post-operative progress note Anesthesia: Postop Eval II Evaluation Mental status: Awake Pain Level: 0 nausea: No Vomiting: No
== END 2024-10-06 16:33 | disposition home or self-care (01) ==
LOC: EN 13:57 → AC 13:59
PROVIDERS: PCP Family Medicine; Referring Provider Family Medicine; Visit Provider Internal Medicine Gastroenterology
PROC: 0DJD8ZZ Inspection of Lower Intestinal Tract, Via Natural or Artificial Opening Endoscopic (ICD-10-PCS; CPT 45378; principal; 2024-10-06 14:55)
DX: K25.9 Gastric ulcer, unspecified as acute or chronic, without hemorrhage or perforation (principal); K76.6 Portal hypertension; I85.00 Esophageal varices without bleeding; G20.C Parkinsonism, unspecified; E11.9 Type 2 diabetes mellitus without complications; Z79.4 Long term (current) use of insulin; K63.89 Other specified diseases of intestine; K29.50 Unspecified chronic gastritis without bleeding; K57.30 Diverticulosis of large intestine without perforation or abscess without bleeding; E78.00 Pure hypercholesterolemia, unspecified; K21.9 Gastro-esophageal reflux disease without esophagitis; Z79.84 Long term (current) use of oral hypoglycemic drugs; Z79.899 Other long term (current) drug therapy
CPT/HCPCS: 45380; 43239; 82962; 88305; 88342; J2405

== ENCOUNTER → 2024-12-01 | Outpatient (CLI) | payer MEDICARE, MEDICAID, SELFPAY ==
--- NOTE | 2024-12-01 09:58 | US_ITS ---
PROCEDURE: ABD LIMITED W/ ELASTOGRAPHY REASON FOR EXAM: ESOPHAGEAL VARICES COMPARISON: None. TECHNIQUE: Right upper quadrant abdominal ultrasound. Jessie ElastQ Imaging shear wave elastography for non-invasive assessment of liver tissue stiffness. Jessie EPIQ Elite. FINDINGS: LIVER: Size: Enlarged (hepatomegaly) Length: 21.2 cm Echotexture: Diffusely echogenic suggesting fatty infiltration Contour: Normal Lesions: There is a 1.7 cm x 1.4 cm x 1.4 cm septated cyst in the left lobe of the liver. Elastography: EQI Med: 12.5 kPa EQI Med Naveen: 2.03 m/s IQR/Med: 20 %* GALLBLADDER: Surgically absent. COMMON BILE DUCT: Normal measuring 5.7 mm. Possible choledochal cyst measuring 2.2 cm 1.4 cm x 1.4 cm.. PANCREAS: Normal Visualized portions of the right kidney are unremarkable. No right upper quadrant ascites. US/ABD Limited w/ Elastography IMPRESSION: SEVERE HEPATIC FIBROSIS / CIRRHOSIS Hepatomegaly and fatty infiltration of the liver. Status post cholecystectomy. 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 Reference Values: SRU <1.37 m/s (5.7kPa): No to mild fibrosis 1.37 m/s - 2.2 m/s: Moderate to severe fibrosis >2.2 m/s (15kPa): Significant fibrosis / cirrhosis METAVIR Score F2 or higher: 1.34 m/s (5.7kPa) F3 or higher: 1.55 m/s (7.3kPa) F4: 1.80 m/s (10kPa) * If the IQR/Med is >30%, the variance in the measurements is a large and the a ccuracy of the measurement may be in question. Reading Location: [place] [id number]
--- OUTSIDE RECORDS SUMMARY | 2024-12-01 20:08 | XMS RPT_ITS | CCD ---
Author Organization [facility] Care Team Providers Care Paper Steamer Name Role Phone VIKRAM BUTLER JR. Unavailable Unavailable FAST, CAMI Unavailable Unavailable VIKRAM BUTLER JR. Unavailable Unavailable FAST, CAMI Unavailable Unavailable Fast, Cami A Unavailable Fast, Cami A Primary Care Provider Evelyn Azevedo N Unavailable Adelita Mendoza Unavailable Kristina Azevedoica N Unavailable Charan Azevedossica N Unavailable Annalise Randhawa MD Primary Care Provider Dr. Clemente Randhawa Primary Care Provider Dr. Clemente Randhwaa Referring Provider Dr. Khadijah Tineo Attending Provider Annalise Randhawa MD Primary Care Provider Annalise Randhawa MD Primary Care Provider Annalise Randhawa MD Primary Care Provider Annalise Randhawa MD Primary Care Provider ANNALISE RANDHAWA Primary Care Annalise Sun MD Primary Care Provider Annalise Randhawa MD Primary Care Provider JOYCE MARLEY Referring Unavailable ANNALISE RANDHAWA Primary Care UnavailJOYCE Gutierrez Referring Unavailable ANNALISE RANDHAWA Primary Care Unavailabl e Taylor CORBETT, Dr. Mcbride Primary Care Provider [phone] Taylor CORBETT, Dr. Mcbride Attending Provider Taylor CORBETT, Dr. Mcbride Referring Provider Maude Glover Attending Provider Friend DO, Dr. Cuellar Attending Provider Friend DO, Dr. Cuellar Other Provider Maude Taylor Attending Unavailable Maude Taylor Referring Unavailable Yony, Boby Primary Care Unavailable Vazquez, Reed Primary Care Unavailable Vazquez, Reed Attending Unavailable Vazquez, Reed Referring Unavailable AtanasovMaude Attending Unavailable Vazquez, Reed Referring Unavailable Vazquez, Reed Primary Care Unavailable Vazquez, Reed Referring Unavailable Vazquez, Reed Primary Care Unavailable Friend, Polo Consulting Unavailable Friend, Polo Attending Unavailable Atanasjeff, Maude Attending Unavailable Vazquez, Reed Referring Unavailable Vazquez, Reed Primary Care Unavailable RussAlfred Attending Unavailable Yony, Chalon Primary Care Unavailable Yony, Ramoson Referring Unavailable Friend, Polo Attending Unavailable Vazquez, Reed Referring Unavailable Vazquez, Reed Primary Care Unavailable Vazquez, Reed Primary Care Unavailable Vazquez, Reed Attending Unavailable Vazquez, Reed Referring Unavailable Vazquez, Reed Primary Care Unavailable Vazquez, Reed Attending Unavailable STEINER, KATTY E Attending Unavailable SELF Referring Unavailable RANCYRUS, RANIOPHER B Primary Care Unavailabl e STEINER, KATTY E Attending Unavailable SELF Referring Unavailable RANCYRUS, CHRISTOPHER B Primary Care Unavailabl e STEINER, KATTY E Attending Unavailable RANNEY, CHRISTOPHER B Primary Care Unavailabl e STEINER, KATTY E Attending Unavailable SELF Referring Unavailable RANCYRUS, CHRISTOPHER B Primary Care Unavailabl e STEINER, KATTY E Referring Unavailable RANNEY, CHRISTOPHER B Primary Care Unavailabl e STEINER, KATTY E Attending Unavailable SELF Referring Unavailable RANCYRUS, RANIOPHER B Primary Care Unavailabl e Allergies Allergy Classification Reported Allergen(s) Allergy Type Date of Onset Reaction(s) Facility (8 sources) Clarithromycin Drug Allergy nausea and vomiting [facility] Work Phone: (8 sources) Indomethacin Drug Allergy rash [facility] Work Phone: (8 sources) Penicillin Drug Allergy [facility] Work Phone: (20 sources) Clarithromycin; Translations: [CLARITHROMYCIN] Drug Allergy 03-26-20 06 Diarrhea [facility] Work Phone: (7 sources) Indomethacin Drug Allergy 04-24-20 21 Rash [facility] (20 sources) Indomethacin; Translations: [INDOMETHACIN SODIUM] Drug Allergy 03-26-20 06 [facility] Work Phone: (20 sources) Penicillins; Translations: [PENICILLINS] Allergy to substance 03-26-20 [facility] Work Phone: (20 sources) Amitriptyline; Translations: [AMITRIPTYLINE] Drug Allergy 01-24-20 22 Other: See Comments [facility] Comment on above: confusion (20 sources) canagliflozin; Translations: [CANAGLIFLOZIN] Drug Allergy 01-24-20 22 Other: See Comments [facility] (20 sources) pioglitazone; Translations: [PIOGLITAZONE] Drug Allergy 02-26-20 17 Other: See Comments [facility] (20 sources) acetaZOLAMIDE; Translations: [ACETAZOLAMIDE] Drug Allergy 12-25-19 18 Other: See Comments [facility] (1 source) Amitriptyline Drug Allergy 10-26-19 25 [facility] (1 source) canagliflozin Drug Allergy 10-26-19 25 [facility] (1 source) Clarithromycin Drug Allergy 10-26-19 25 [facility] (1 source) Indomethacin Drug Allergy 10-26-19 25 [facility] (1 source) pioglitazone Drug Allergy 10-26-19 25 [facility] Medications Current Medications Medication Drug Class(es) Dates Sig (Normalized) Sig (Original) BIPAP (20 sources) BIPAP Active BIPAP Dextromethorphan / quiNIDine (7 sources) Antiarrhythmic, Uncompetitive A-jmpayx-Y-aspartate Receptor Antagonist, Cytochrome P450 2D6 Inhibitor, Sigma-1 Agonist Start: 03-18-2013 take 1 tablet by mouth once daily Nuedexta 04/04 Active 1 TABLET PO DAILY March 18, 2013 12:30pm Start: 03-18-2013 End: 01-31-2022 take 2 tablets by mouth once daily Nuedexta 20/10 tablet Discontinued 1 {tbl} PO DAILY March 18, 2013 12:00am January 31, 2022 3:35pm Start: 03-18-2013 End: 01-31-2022 take 1 tablet by mouth once daily Nuedexta 20/10 Discontinued 1 TABLET PO DAILY March 18, 2013 12:00am January 31, 2022 3:35pm Start: 03-18-2013 take 1 tablet by esperanza th once daily Nuedexta 20/10 Active 1 TABLET PO DAILY March 18, 2013 12:00am dicyclomine hydrochloride 10 mg oral capsule (5 sources) Anticholinergic Start: 08-11-2024 take 1 capsule by mouth every twelve hours dicyclomine (BENTYL) 10 mg capsule Take 1 capsule by mouth every 12 hours. 08/11/2024 Active Start: 08-11-2024 End: 10-04-2024 take 1 capsule by mouth twice daily Dicyclomine 10 mg capsule Discontinued 10 mg PO TWICE A DAY August 11, 2024 1:00am October 04, 2024 10:12am 0.5 ml dulaglutide 3 mg/ml auto-injector (20 sources) GLP-1 Receptor Agonist Start: 02-02-2022 TRULICITY 1.5 mg/0.5 mL pen injector inject 1 (ONE) pen (1.5mg) SUBCUTANEOUSLY EVERY WEEK 02/02/2022 Active Start: 12-25-2021 End: 08-11-2024 Dulaglutide (Trulicity) 1.5 mg/0.5 mL pen injector Discontinued mL SC December 25, 2021 12:00am August 11, 2024 2:15pm Start: 12-25-2021 Dulaglutide (T rulicity) 1.5 mg/0.5 mL pen injector Active ML SC December 25, 2021 12:00am Start: 03-04-2019 End: 12-25-2021 Dulaglutide 0.75 MG/0.5 ML p en injector Discontinued 0.75 mg SQ EVERY WEEK March 04, 2019 12:00am December 25, 2021 9:52am Comment on above: inject 1 (ONE) pen ( 1.5mg) SUBCUTANEOUSLY EVERY WEEK escitalopram 20 mg oral tablet (20 sources) Serotonin Reuptake Inhibitor Start: 08-11-19 take 1 tablet by mouth once daily Escitalopram Oxalate (Lexapro) 20 mg tablet Active 20 mg PO daily August 11, 2024 1:00am Start: 03-04-2019 End: 08-11-2024 take 1 tablet by mouth once daily Escitalopram Oxalate 10 MG tablet Discontinued 10 mg PO DAILY March 04, 2019 12:00am August 11, 2024 2:16pm Comment on above: Escitalopram Oxalate Active 10 MG DAILY March 04, 2019 2:15am Take 10 mg by mouth once daily. Take 10 mg by mouth. gabapentin 600 mg oral tablet (20 sources) Anti-epileptic Agent Start: End: take 1 tablet by mouth three times daily gabapentin (NEURONTIN) 600 mg tablet Take 1 tablet by mouth three times a day for 30 days. Patient should start on November 26, 2024. 90 tablet 3 11/26/2024 12/26/2024 Active Start: 02-21-2024 End: 09-09-2024 take 1 tablet by mouth three times daily gabapentin (NEURONTIN) 600 mg tablet Take 1 tablet by mouth three times a day for 30 days. 90 tablet 3 07/13/2024 09/09/2024 Discontinued Start: 08-02-2023 End: 02-10-2024 gabapentin (NEURONTIN) 600 m g tablet Take 1 tablet by mouth three times a day for 60 days. Do not start before November 22, 2023. 90 tablet 3 11/22/2023 02/10/2024 Discontinued Start: 11-21-2022 End: 07-16-2023 gabapentin (NEURONTIN) 600 m g tablet Take 1 tablet by mouth three times a day for 60 days. Do not start before May 17, 2023. 90 tablet 2 05/17/2023 07/16/2023 Active Start: 02-02-2022 End: 11-02-2022 take 1 tablet by mouth three times daily gabapentin (NEURONTIN) 600 mg tablet Take 1 tablet by mouth three times daily for 60 days. Do not start before October 03, 2022. 90 tablet 2 10/03/2022 10/24/2022 Discontinued Start: 12-26-2021 End: 01-25-2022 take 1 tablet by mouth three times daily gabapentin (NEURONTIN) 600 mg tablet Take 1 tablet by mouth three times daily for 30 days. Do not start before December 26, 2021. 90 tablet 0 12/26/2021 01/15/2022 Discontinued Start: 03-04-2019 End: 08-11-2024 take 1 tablet by mouth twice daily Gabapentin 600 tablet Discontinued 900 mg PO TWICE A DAY March 04, 2019 12:00am August 11, 2024 2:16pm Start: 04-07-2015 End: 07-29-2017 take 1 tablet by mouth three times daily Gabapentin 600 MG tablet Discontinued 600 mg PO THREE TIMES A DAY April 07, 2015 12:00am July 29, 2017 4:00pm Comment on above: Take 1 tablet by espreanza th three times daily for 30 days. Do not start before December 26, 2021. Take 1 tablet by esperanza th three times daily for 30 days. Do not start before February 02, 2022. Take 1 tablet by esperanza th three times daily for 30 days. Do not start before March 04, 2022. Take 1 tablet by esperanza th three times daily for 30 days. Do not start before April 04, 2022. Take 1 tablet by esperanza th three times daily for 30 days. Do not start before May 05, 2022. Take 1 tablet by esperanza th three times daily for 30 days. Take 1 tablet by esperanza th three times daily for 30 days. Do not start before July 05, 2022. Take 1 tablet by esperanza th three times daily for 30 days. Do not start before August 04, 2022. Take 1 tablet by esperanza th three times daily for 60 days. Do not start before September 03, 2022. Take 1 tablet by esperanza th three times daily for 60 days. Do not start before November 21, 2022. Take 1 tablet by esperanza th three times daily for 60 days. Do not start before October 03, 2022. Take 1 tablet by esperanza th three times daily for 60 days. Do not start before January 08, 2023. Take 1 tablet by esperanza th three times daily for 60 days. Do not start before February 07, 2023. Take 1 tablet by esperanza th three times a day for 60 days. Do not start before April 05, 2023. Take 1 tablet by esperanza th three times a day for 60 days. Do not start before May 17, 2023. Take 1 tablet by esperanza three times a day for 60 days. Do not start before August 02, 2023. Take 1 tablet by esperanza three times a day for 60 days. glimepiride 4 mg oral tablet (20 sources) Sulfonylurea Start: End: take 1 tablet by mouth once daily in the morning glimepiride (AMARYL) 4 mg tablet Take 4 mg by mouth every morning. 12/24/2021 Active Start: 02-03-2017 End: 07-29-2017 take 1 tablet by mouth once daily Glimepiride 2 MG tablet Discontinued 2 mg PO DAILY February 03, 2017 12:00am July 29, 2017 4:00pm Comment on above: Take 4 mg by mouth e very morning. ibuprofen 600 mg oral tablet (20 sources) Nonsteroidal Anti-inflammatory Drug Start: 03-11-2022 take 1 tablet by mouth three times daily ibuprofen (MOTRIN) 600 mg tablet TAKE 1 TABLET BY MOUTH THREE TIMES DAILY for 5 days 03/11/2022 Active Comment on above: TAKE 1 TABLET BY ESPERANZA THREE TIMES DAILY for 5 days 3 ml insulin degludec 100 unt/ml pen injector (4 sources) Insulin Analog Start: 09-07-2024 TRESIBA FLEXTOUCH U-100 100 unit/mL (3 mL) injection pen 09/07/2024 Active Insulin Degludec (Tresiba Flextouch U-100) 100 unit/mL (3 mL) insulin pen (2 sources) Start: 10-04-2024 Insulin Degludec (Tresiba Flextouch U-100) 100 unit/mL (3 mL) insulin pen Active 60 U SC AT BEDTIME October 04, 2024 12:00am Start: 08-11-2024 Insulin Deglud ec (Tresiba Flextouch U-100) 100 unit/mL (3 mL) insulin pen Active 70 U SC DAILY August 11, 2024 1:00am 3 ml insulin lispro 100 unt/ml pen injector (12 sources) Insulin Analog Start: 08-30-2024 insulin lispro (HUMALOG KWIKPEN) 100 unit/mL INJECT 45 units before each meal 08/30/2024 Active Start: 02-12-2022 insulin lispro (HUMALOG KWIKPEN) 100 unit/mL INJECT 20 units under the skin before meals 0 02/12/2022 Active Comment on above: INJECT 20 units unde r the skin before meals meloxicam 7.5 mg oral tablet (20 sources) Nonsteroidal Anti-inflammatory Drug Start: 3 take 1 tablet by mouth once meloxicam (MOBIC) 7.5 mg tablet Take 1 tablet by mouth every afternoon. 01/21/2023 Active Comment on above: Take 1 tablet by esperanza th every afternoon. mirtazapine 30 mg oral tablet (20 sources) Start: 5 take 1 tablet by mouth at bedtime Mirtazapine 30 mg tablet Active 30 mg PO AT BEDTIME October 04, 2024 12:00am Start: 08-11-2024 End: 10-04-2024 take 1 tablet by mouth at bedtime Mirtazapine (Remeron) 15 mg tablet Discontinued 15 mg PO AT BEDTIME August 11, 2024 1:00am October 04, 2024 10:26am Start: 12-25-2021 End: 08-11-2024 Mirtazapine 30 mg tablet Discontinued 30 mg PO December 25, 2021 12:00am August 11, 2024 2:17pm Comment on above: Take by mouth. naloxone hydrochloride 40 mg/ml nasal spray (20 sources) Opioid Antagonist Start: 02-11-2023 naloxone 4 mg/actuation nasal spray (NARCAN) Use 1 spray in one nostril as needed for overdose. May repeat every 2 to 3 min in alternating nostrils until medical assistance is available 1 Each 3 02/11/2023 Active Start: 01-21-2019 End: 02-11-2023 naloxone 4 mg/actuation nasa l spray (NARCAN) Narcan 4 mg/actuation spray,non-aerosol 0 01/21/2019 02/11/2023 Discontinued Comment on above: Narcan 4 mg/actuatio n spray,non-aerosol Use 1 spray in one n ostril as needed for overdose. May repeat every 2 to 3 min in alternating nostrils until medical assistance is available omeprazole 40 mg delayed release oral capsule (20 sources) Proton Pump Inhibitor Start: 08-11-19 take 1 capsule by mouth once daily Omeprazole 40 mg capsule,delayed release(DR/EC) Active 40 mg PO daily August 11, 2024 1:00am Start: 12-25-2021 End: 02-11-2023 omeprazole (PRILOSEC) 40 mg capsule Take by mouth. 0 12/25/2021 02/11/2023 Discontinued Start: 12-25-2021 End: 08-11-2024 Omeprazole 40 mg capsule,del ayed release(DR/EC) Discontinued NMA PO December 25, 2021 12:00am August 11, 2024 2:17pm Comment on above: Take by mouth. propranolol hydrochloride 20 mg oral tablet (20 sources) beta-Adrenergic Connor Start: 12-25-2021 take 1 tablet by mouth twice daily Propranolol 20 mg tablet Active 20 mg PO TWICE A DAY December 25, 2021 9:53am Start: 12-25-2021 take 20 mg by mouth once daily Propranolol Active 20 MG PO .qd December 25, 2021 9:53am Start: 08-16-2019 End: 12-25-2021 take 3 tablets by mouth twice daily Propranolol 20 MG tablet Discontinued 60 mg PO TWICE A DAY August 16, 2019 8:34pm December 25, 2021 9:55am Start: 08-16-2019 End: 12-25-2021 take 60 mg by mouth twice daily Propranolol Discontinu ed 60 MG PO TWICE A DAY August 16, 2019 8:34pm December 25, 2021 9:55am Start: 03-20-2019 End: 08-16-2019 take 1 tablet by mouth twice daily Propranolol 20 MG tablet Discontinued 20 mg PO TWICE A DAY 60 March 20, 2019 12:00am August 16, 2019 8:34pm Start: 03-18-2019 End: 03-20-2019 take 1 tablet by mouth twice daily Propranolol 60 MG tablet Discontinued 60 mg PO TWICE A DAY March 18, 2019 12:00am March 20, 2019 10:23am Start: 03-02-2015 End: 01-15-2022 take 1 capsule by mouth twice daily propranolol ER (INDERAL LA) 120 mg 24 hr capsule Take 1 capsule by mouth twice daily. 0 03/02/2015 01/15/2022 Discontinued (Changing Therapy/Dosage Form) Start: 10-03-2011 take 1 tablet by esperanza th once daily INDERAL LA [id number] One tablet by mouth daily PROPRANOLOL HCL [id number] Adelita Mendoza End: 02-11-2023 take 1 tablet by mouth three times daily propranolol (INDERAL) 20 mg tablet Take 20 mg by mouth three times daily. 0 02/11/2023 Discontinued Comment on above: Take 1 capsule by [facility] twice daily. Take 20 mg by mouth three times daily. rosuvastatin calcium 5 mg oral tablet (1 source) HMG-CoA Reductase Inhibitor Start: take 1 tablet by mouth at bedtime Rosuvastatin 5 mg tablet Active 5 mg PO AT BEDTIME October 04, 2024 12:00am Semaglutide (1 source) Start: Semaglutide (Ozempic) 1 mg/dose (4 mg/3 mL) pen injector Active 1 mg SC WE August 11, 2024 1:00am Completed/Discontinued Medications Medication Drug Class(es) Dates Sig (Normalized) Sig (Original) acetaminophen 325 mg / oxyCODONE hydrochloride 5 mg oral tablet (20 sources) Opioid Agonist Start: 03-22-2023 End: 04-05-2023 oxyCODONE-acetamino phen (PERCOCET) 5-325 mg tablet Indications: Encounter for long-term (current) use of medications Take 1 tablet by mouth as directed for 14 days. Weaning prescription:Take 1 tab every day for a week then 1 tab every other day for a week and stop Do not start before March 22, 2023. 11 tablet 0 03/22/2023 04/04/2023 Discontinued (Changing Therapy/Dosage Form) Start: 11-22-2022 End: 03-22-2023 oxyCODONE-acetaminophen (PER COCET) 5-325 mg tablet Indications: Encounter for long-term (current) use of medications Take 1 tablet by mouth twice daily as needed for pain for up to 30 days. Do not start before February 20, 2023. 60 tablet 0 02/20/2023 03/14/2023 Discontinued Start: 07-25-2022 End: 10-24-2022 take 1 tablet by mouth twice daily as needed for pain oxyCODONE-acetaminophen (PERCOCET) 5-325 mg tablet Indications: Encounter for long-term (current) use of medications Take 1 tablet by mouth twice daily as needed for pain for up to 30 days. Do not start before October 23, 2022. 60 tablet 0 10/23/2022 10/24/2022 Discontinued Start: 06-25-2022 End: 07-04-2022 take 1 tablet by mouth twice daily as needed for pain oxyCODONE-acetaminophen (PERCOCET) 5-325 mg tablet Indications: Encounter for long-term (current) use of medications Take 1 tablet by mouth twice daily as needed for pain for up to 30 days. Do not start before June 25, 2022. 60 tablet 0 06/25/2022 07/04/2022 Discontinued Start: 06-25-2022 End: 06-21-2022 take 1 tablet by mouth twice daily as needed for pain oxyCODONE-acetaminophen (PERCOCET) 5-325 mg tablet Indications: Encounter for long-term (current) use of medications Take 1 tablet by mouth twice daily as needed for pain for up to 30 days. Do not start before June 25, 2022. 60 tablet 0 06/25/2022 06/21/2022 Discontinued Start: 03-18-2019 End: 08-11-2024 take 1 tablet by mouth twice daily as needed for pain oxyCODONE-acetaminophen (PERCOCET) 5-325 mg tablet Indications: Encounter for long-term (current) use of medications Take 1 tablet by mouth twice daily as needed for pain for up to 30 days. Do not start before June 25, 2022. 60 tablet 0 06/25/2022 07/25/2022 Active Start: 03-18-2019 take 1 tablet by esperanza twice daily Oxycodone-Acetaminophen Active 1 TABLET PO TWICE A DAY March 18, 2019 5:03pm Start: 03-06-2019 End: 03-18-2019 Oxycodone-Acetaminophen 1 TA BLET tablet Discontinued 1 - 2 {tbl} PO EVERY 6 HOURS NEEDED as needed for Pain March 06, 2019 March 18, 2019 5:04pm Start: 02-05-2017 End: 03-18-2019 take 1 tablet by mouth every six hours as needed Oxycodone-Acetaminophen Discontinued 1 - 2 TABLET PO EVERY 6 HOURS NEEDED March 06, 2019 March 18, 2019 5:04pm Start: 08-12-2014 End: 07-29-2017 Oxycodone-Acetaminophen 1 TA BLET tablet Discontinued 1 {tbl} PO EVERY 4 HOURS NEEDED as needed for Pain August 12, 2014 1:00am July 29, 2017 4:01pm Start: 08-12-2014 End: 07-29-2017 take 1 tablet by mouth every four hours as needed Oxycodone-Acetaminophen Discontinued 1 TABLET PO EVERY 4 HOURS NEEDED August 12, 2014 1:00am July 29, 2017 4:01pm Start: 10-03-2011 take 1 tablet by esperanza th once daily PERCOCET 5-325 MG TABS One tablet by esperanza th daily OXYCODONE-ACETAMINOPHEN [id number] Adelita Juárez Reji End: 12-25-2021 take 1 tablet by mouth every eight hours as needed oxyCODONE-acetaminophen (PERCOCET) 5-325 mg tablet Take 1 tablet by mouth every 8 hours as needed. 0 12/25/2021 Discontinued Comment on above: Take 1 tablet by esperanza th every 8 hours as needed. Take 1 tablet by esperanza th twice daily as needed for pain for up to 30 days. Do not start before December 27, 2021. Take 1 tablet by esperanza th twice daily as needed for pain for up to 30 days. Do not start before January 26, 2022. Take 1 tablet by esperanza th twice daily as needed for pain for up to 30 days. Do not start before February 25, 2022. Take 1 tablet by esperanza th twice daily as needed for pain for up to 30 days. Do not start before March 27, 2022. Take 1 tablet by esperanza th twice daily as needed for pain for up to 30 days. Take 1 tablet by esperanza th twice daily as needed for pain for up to 30 days. Do not start before May 26, 2022. Take 1 tablet by esperanza th twice daily as needed for pain for up to 30 days. Do not start before June 25, 2022. Take 1 tablet by esperanza th twice daily as needed for pain for up to 30 days. Do not start before July 25, 2022. Take 1 tablet by esperanza th twice daily as needed for pain for up to 30 days. Do not start before August 24, 2022. Take 1 tablet by esperanza th twice daily as needed for pain for up to 30 days. Do not start before September 23, 2022. Take 1 tablet by esperanza th twice daily as needed for pain for up to 30 days. Do not start before November 22, 2022. Take 1 tablet by esperanza twice daily as needed for pain for up to 30 days. Do not start before October 23, 2022. Take 1 tablet by esperanza twice daily as needed for pain for up to 30 days. Do not start before December 22, 2022. Take 1 tablet by esperanza twice daily as needed for pain for up to 30 days. Do not start before January 21, 2023. Take 1 tablet by esperanza twice daily as needed for pain for up to 30 days. Do not start before February 20, 2023. Take 1 tablet by esperanza as directed for 14 days. Weaning prescription:Take 1 tab every day for a week then 1 tab every other day for a week and stop Do not start before March 22, 2023. aspirin 81 mg delayed release oral tablet (11 sources) Platelet Aggregation Inhibitor, Nonsteroidal Anti-inflammatory Drug Start: 04-25-20 21 End: 08-11-19 25 take 1 tablet by mouth once Aspirin (Adult Aspirin Regimen) 81 mg tablet,delayed release (DR/EC) Discontinued 81 mg PO ONCE December 25, 2021 9:51am August 11, 2024 2:15pm carbidopa 25 mg / entacapone 200 mg / levodopa 100 mg oral tablet (20 sources) Aromatic Amino Acid Decarboxylation Inhibitor, Aelrzmix-J-Rjcdcbojfylsj rase Inhibitor, Aromatic Amino Acid Start: 01-27-20 22 End: 02-12-20 23 take 1 tablet by mouth twice daily indmmuqea-ygalaqit-y ntacapone (STALEVO 100) 25-100-200 mg per tablet Take 1 tablet by mouth twice daily. 0 01/26/2022 02/11/2023 Discontinued Start: 01-09-2017 STALEVO 150 TA BS twice daily [id number] TABS [id number] Adelita Mendoza Comment on above: Take 1 tablet by esperanza th twice daily. carbidopa 25 mg / levodopa 100 mg oral tablet (20 sources) Aromatic Amino Acid Decarboxylation Inhibitor, Aromatic Amino Acid Start: 2 End: 3 take 1 tablet by mouth three times daily carbidopa-levodopa (SINEMET 25-100) 25-100 mg per tablet Take 1 tablet by mouth three times daily. 0 12/03/2021 02/11/2023 Discontinued Start: 09-06-2019 End: 08-11-2024 Carbidopa-Levodopa 25-100 mg tablet extended release Discontinued 1 {tbl} PO THREE TIMES A DAY September 06, 2019 12:00am August 11, 2024 2:15pm Start: 09-06-2019 take 1 tablet by esperanza th three times daily Carbidopa-Levodopa Active 1 TABLET PO THREE TIMES A DAY September 06, 2019 12:00am Start: 01-09-2017 CARBIDOPA-LEVO DOPA 25-100 MG TABS tid CARBIDOPA-LEVODOPA [id number] Adelita Mendoza Comment on above: Take 1 tablet by esperanza th three times daily. CARBIDOPA/LEVODOPA/ENT ACAPONE (STALEVO 150 ORAL) (20 sources) End: 02-11-2023 CARBIDOPA/LEVODOPA/ENTACAP ONE (STALEVO 150 ORAL) Take by mouth. 0 02/11/2023 Discontinued CARBIDOPA/LEVODO PA/ENTACAPONE (STALEVO 150 ORAL) Take by mouth. 0 Active Comment on above: Take by mouth. clindamycin 150 mg oral capsule (13 sources) Lincosamide Antibacterial Start: 03-11-20 End: 02-12-20 take 1 capsule by mouth three times daily clindamycin (CLEOCIN) 150 mg capsule Take 150 mg by mouth three times daily. 0 03/11/2022 02/11/2023 Discontinued Comment on above: Take 150 mg by mouth three times daily. clonazePAM 1 mg oral tablet (20 sources) Benzodiazepine Start: 03-04-20 End: 12-26-19 take 1 tablet by mouth at bedtime Clonazepam 1 MG tablet Discontinued 1 mg PO AT BEDTIME March 04, 2019 12:00am December 25, 2021 9:52am Start: 04-07-2015 End: 07-29-2017 take 1 tablet by mouth at bedtime Clonazepam 1 MG tablet Discontinued 1 mg PO AT BEDTIME April 07, 2015 12:00am July 29, 2017 4:00pm Start: 03-02-2015 End: 02-11-2023 take 2 tablets by mouth every twenty-four hours as needed clonazePAM (KLONOPIN) 0.5 mg tablet Take 2 tablets by mouth at bedtime as needed. 0 03/02/2015 02/11/2023 Discontinued Comment on above: Take 2 tablets by mo [facility] at bedtime as needed. dextromethorphan Hbr/quinidine (DEXTROMETHORPHAN-QUINIDINE ORAL) (15 sources) Start: 03-18-2013 End: 02-11-2023 dextromethorphan Hbr/quinidine (DEXTROMETHORPHAN-QUINIDINE ORAL) Nuedexta 20/10 Active 1 TAB DAILY March 18, 2013 12:30pm 0 03/18/2013 02/11/2023 Discontinued Start: 03-18-2013 dextromethorph an Hbr/quinidine (DEXTROMETHORPHAN-QUINIDINE ORAL) Nuedexta 20/10 Active 1 TAB DAILY March 18, 2013 12:30pm 0 03/18/2013 Active Comment on above: Nuedexta 20/10 Activ e 1 TAB DAILY March 18, 2013 12:30pm diclofenac sodium 0.01 mg/mg topical gel (20 sources) Nonsteroidal Anti-inflammatory Drug Start: 021 End: 023 apply 4 g topically four times daily diclofenac (VOLTAREN) 1 % topical gel Apply 4 g to affected area four times daily. 40 g 1 12/20/2020 02/11/2023 Discontinued Comment on above: Apply 4 g to affecte d area four times daily. ergocalciferol 1.25 mg oral capsule (7 sources) Provitamin D2 Compound Start: 017 End: 018 Ergocalciferol (Vitamin D2) 50,000 UNIT capsule Discontinued [id number] U PO MO February 03, 2017 12:00am July 29, 2017 4:00pm esomeprazole 40 mg delayed release oral capsule (20 sources) Proton Pump Inhibitor Start: 015 End: 024 take 1 capsule by mouth once daily Esomeprazole Magnesium 40 MG capsule Discontinued 40 mg PO DAILY March 04, 2019 12:00am December 25, 2021 9:53am Comment on above: Take 40 mg by mouth. 72 hr fentaNYL 0.025 mg/hr transdermal system (20 sources) Opioid Agonist Start: 025 Fentanyl 25 mcg/hr patch 72 hour Active 1 NMA TD Q72H August 11, 2024 1:00am Start: 10-15-2023 End: 01-28-2025 apply 1 dose transdermal route every hour fentaNYL (DURAGESIC) 25 mcg/hr Indications: Myofascial pain syndrome , Chronic pain syndrome Apply 1 Patch as directed every 72 hours for 30 days. As directed. Patient should start on October 30, 2024. 10 Patch 10/30/2024 11/25/2024 Discontinued Start: 09-13-2023 End: 10-13-2023 apply 1 dose transdermal route every hour fentaNYL (DURAGESIC) 25 mcg/hr Indications: Myofascial pain syndrome , Chronic pain syndrome Apply 1 Patch as directed every 72 hours for 30 days. As directed. Do not start before September 13, 2023. 10 Patch 0 09/13/2023 10/09/2023 Discontinued Start: 08-14-2023 End: 09-13-2023 fentaNYL (DURAGESIC) 25 mcg/ hr Indications: Myofascial pain syndrome , Chronic pain syndrome Apply 1 Patch as directed every 72 hours for 30 days. As directed. 10 Patch 0 08/14/2023 09/13/2023 Active Start: 03-13-2023 End: 08-14-2023 apply 1 dose transdermal route every hour fentaNYL (DURAGESIC) 25 mcg/hr Indications: Myofascial pain syndrome , Chronic pain syndrome Apply 1 Patch as directed every 72 hours for 30 days. As directed. Do not start before July 14, 2023. 10 Patch 0 07/14/2023 08/14/2023 Discontinued Start: 02-11-2023 End: 03-13-2023 fentaNYL (DURAGESIC) 25 mcg/ hr Indications: Chronic pain syndrome , Myofascial pain syndrome Apply 1 Patch as directed every 72 hours for 30 days. As directed. 10 Patch 0 02/11/2023 03/10/2023 Discontinued Comment on above: Apply 1 Patch as dir ected every 72 hours for 30 days. As directed. Apply 1 Patch as dir ected every 72 hours for 30 days. As directed. Do not start before March 13, 2023. Apply 1 Patch as dir ected every 72 hours for 30 days. As directed. Do not start before April 12, 2023. Apply 1 Patch as dir ected every 72 hours for 30 days. As directed. Do not start before May 15, 2023. Apply 1 Patch as dir ected every 72 hours for 30 days. As directed. Do not start before June 14, 2023. Apply 1 Patch as dir ected every 72 hours for 30 days. As directed. Do not start before July 14, 2023. Apply 1 Patch as dir ected every 72 hours for 30 days. As directed. Do not start before September 13, 2023. 24 hr HYDROmorphone hydrochloride 12 mg extended release oral tablet (15 sources) Opioid Agonist Start: 2 End: 7 take 1 tablet by mouth once daily EXALGO 12 MG T24A One tablet by mouth daily HYDROMORPHONE HCL [id number] Adelita Mendoza 3 ml insulin detemir 100 unt/ml pen injector (20 sources) Insulin Analog Start: 2 End: 5 Insulin Detemir U-100 (Levemir Flextouch U-100 Insuln) 100 unit/mL (3 mL) insulin pen Discontinued mL SC December 25, 2021 12:00am August 11, 2024 2:16pm Start: 12-25-2021 Insulin Detemi r U-100 (Levemir Flextouch U-100 Insuln) 100 unit/mL (3 mL) insulin pen Active ML SC December 25, 2021 12:00am Start: 12-07-2020 End: 02-11-2023 LEVEMIR FLEXTOUCH U-100 INSU RUTHIE 100 unit/mL (3 mL) injection pen INJECT TEN UNITS AT BEDTIME 0 12/07/2020 02/11/2023 Discontinued Comment on above: INJECT TEN UNITS AT BEDTIME insulin lispro (HUMALOG KWIKPEN) 100 unit/mL (7 sources) Start: 02-12-2022 End: 02-11-2023 insulin lispro (HUMALOG KWIKPEN) 100 unit/mL INJECT 20 units under the skin before meals 0 02/12/2022 02/11/2023 Discontinued Start: 02-12-2022 insulin lispro (HUMALOG KWIKPEN) 100 unit/mL INJECT 20 units under the skin before meals 0 02/12/2022 Active Comment on above: INJECT 20 units unde r the skin before meals iv contrast (will be provided with radiology test) (1 source) Start: 02-12-20 End: 02-13-20 iv contrast (will be provided with radiology test) MRI LSP Inject, intravenously, once for 1 dose. No IV access, insert saline lock prior to the beginning of sedation, infusion, injection of imaging exam. Discontinue saline lock post exam. If Pt. has a central line or IVAD, may access for administration according to line specific nursing protocol. Once exam is complete flush line and de-access according to line specific nursing protocol in the MR contrast administration guidelines link. 1 Each 0 02/11/2023 02/12/2023 Comment on above: MRI LSP Inject, intr avenously, once for 1 dose. No IV access, insert saline lock prior to the beginning of sedation, infusion, injection of imaging exam. Discontinue saline lock post exam. If Pt. has a central line or IVAD, may access for administration according to line specific nursing protocol. Once exam is complete flush line and de-access according to line specific nursing protocol in the MR contrast administration guidelines link. lisinopril 5 mg oral tablet (7 sources) Angiotensin Converting Enzyme Inhibitor Start: 03-04-20 End: 03-20-20 take 1 tablet by mouth once daily Lisinopril 5 MG tablet Discontinued 5 mg PO DAILY March 04, 2019 12:00am March 20, 2019 10:23am metFORMIN hydrochloride 1000 mg oral tablet (20 sources) Biguanide Start: 12-26-19 End: 02-12-20 take 1 tablet by mouth twice daily metFORMIN (GLUCOPHAGE) 1,000 mg tablet Take 1,000 mg by mouth twice daily. 0 01/12/2022 02/11/2023 Discontinued Start: 12-25-2021 take 1000 mg by mout h once daily Metformin Active 1000 MG PO DAILY December 25, 2021 12:00am Start: 03-18-2019 End: 08-17-2019 take 1 tablet by mouth twice daily Metformin 1,000 MG tablet Discontinued 1000 mg PO TWICE A DAY March 18, 2019 12:00am August 17, 2019 5:56pm Start: 03-02-2015 End: 02-11-2023 take 1 tablet by mouth three times daily metFORMIN ER (GLUCOPHAGE XR) 500 mg 24 hr tablet Take 1 tablet by mouth three times daily. 0 03/02/2015 02/11/2023 Discontinued Start: 03-12-2012 take 1 tablet by esperanza th once daily GLUCOPHAGE TABS One tablet by mouth daily METFORMIN HCL TABS [id number] Adelita Mendoza Comment on above: Take 1 tablet by esperanza th three times daily. Take 1,000 mg by esperanza th twice daily. METHYLPREDNISOLONE (15 sources) Corticosteroid Start: 04-20-2015 End: 01-09-2017 METHYLPREDNISOLONE 4 MG TBPK take as directed METHYLPREDNISOLONE [id number] Adelita Mendoza Start: 04-20-2015 METHYLPREDNISO LONE 4 MG TBPK take as directed METHYLPREDNISOLONE [id number] Adelita Mendoza morphine sulfate 15 mg extended release oral tablet (20 sources) Opioid Agonist Start: 11-22-2022 End: 03-10-2023 take 1 tablet by mouth every twelve hours as needed for pain, then take 8 tablets by mouth every twelve hours as needed for pain morphine SR (MS CONTIN) 15 mg 12 hr tablet Indications: Encounter for long-term (current) use of medications Take 1 tablet by mouth every 12 hours as needed for pain for up to 30 days. For Pain Do not start before January 21, 2023. 60 tablet 0 01/21/2023 03/10/2023 Discontinued (Changing Therapy/Dosage Form) Start: 07-25-2022 End: 10-24-2022 take 1 tablet by mouth every twelve hours as needed for pain morphine SR (MS CONTIN) 15 mg 12 hr tablet Indications: Encounter for long-term (current) use of medications Take 1 tablet by mouth every 12 hours as needed for pain for up to 30 days. For Pain Do not start before October 23, 2022. 60 tablet 0 10/23/2022 10/24/2022 Discontinued Start: 06-25-2022 End: 07-04-2022 take 1 tablet by mouth every twelve hours as needed for pain morphine SR (MS CONTIN, ORAMORPH SR) 15 mg 12 hr tablet Indications: Encounter for long-term (current) use of medications Take 1 tablet by mouth every 12 hours as needed for pain for up to 30 days. For Pain Do not start before June 25, 2022. 60 tablet 0 06/25/2022 07/04/2022 Discontinued Start: 06-25-2022 End: 06-21-2022 take 1 tablet by mouth every twelve hours as needed for pain morphine SR (MS CONTIN, ORAMORPH SR) 15 mg 12 hr tablet Indications: Encounter for long-term (current) use of medications Take 1 tablet by mouth every 12 hours as needed for pain for up to 30 days. For Pain Do not start before June 25, 2022. 60 tablet 0 06/25/2022 06/21/2022 Discontinued Start: 12-27-2021 End: 07-25-2022 take 1 tablet by mouth every twelve hours as needed for pain morphine SR (MS CONTIN, ORAMORPH SR) 15 mg 12 hr tablet Indications: Encounter for long-term (current) use of medications Take 1 tablet by mouth every 12 hours as needed for pain for up to 30 days. For Pain Do not start before June 25, 2022. 60 tablet 0 06/25/2022 07/25/2022 Active Start: 01-09-2017 MORPHINE SULFA TE 15 MG TABS BID MORPHINE SULFATE [id number] Adelita Mendoza Start: 01-15-2015 End: 08-11-2024 take 1 tablet by mouth twice daily Morphine 15 MG tablet Discontinued 15 mg PO TWICE A DAY January 15, 2015 12:00am August 11, 2024 1:50pm Comment on above: Take 1 tablet by esperanza th twice daily. Take 1 tablet by esperanza th every 12 hours as needed for up to 30 days. For Pain Do not start before December 27, 2021. Take 1 tablet by esperanza th every 12 hours as needed for up to 30 days. For Pain Do not start before January 26, 2022. Take 1 tablet by esperanza th every 12 hours as needed for up to 30 days. For Pain Do not start before February 25, 2022. Take 1 tablet by esperanza th every 12 hours as needed for up to 30 days. For Pain Do not start before March 27, 2022. Take 1 tablet by esperanza th every 12 hours as needed for up to 30 days. For Pain Take 1 tablet by esperanza th every 12 hours as needed for pain for up to 30 days. For Pain Do not start before May 26, 2022. Take 1 tablet by esperanza th every 12 hours as needed for pain for up to 30 days. For Pain Do not start before June 25, 2022. Take 1 tablet by esperanza th every 12 hours as needed for pain for up to 30 days. For Pain Do not start before July 25, 2022. Take 1 tablet by esperanza th every 12 hours as needed for pain for up to 30 days. For Pain Do not start before August 24, 2022. Take 1 tablet by esperanza th every 12 hours as needed for pain for up to 30 days. For Pain Do not start before September 23, 2022. Take 1 tablet by esperanza th every 12 hours as needed for pain for up to 30 days. For Pain Do not start before November 22, 2022. Take 1 tablet by esperanza th every 12 hours as needed for pain for up to 30 days. For Pain Do not start before October 23, 2022. Take 1 tablet by esperanza th every 12 hours as needed for pain for up to 30 days. For Pain Do not start before December 22, 2022. Take 1 tablet by esperanza th every 12 hours as needed for pain for up to 30 days. For Pain Do not start before January 21, 2023. ondansetron 4 mg disintegrating oral tablet (15 sources) Serotonin-3 Receptor Antagonist Start: 11-16-19 18 End: 02-12-20 23 ondansetron orally disintegrating (ZOFRAN ODT) 4 mg disintegrating tablet 4 mg. 0 11/15/2017 02/11/2023 Discontinued Comment on above: 4 mg. PREGABALIN CAPS (15 sources) Start: 10-03-19 End: 01-10-20 17 take 1 capsule by mouth three times daily LYRICA CAPS three times a day by mouth PREGABALIN CAPS [id number] Adelita Mendoza Start: 10-03-2011 take 1 capsule by mo uth three times daily LYRICA CAPS three times a day by mouth PREGABALIN CAPS [id number] Adelita Mendoza rasagiline 1 mg oral tablet (20 sources) Monoamine Oxidase Inhibitor Start: 03-17-2013 End: 08-11-2024 take 1 tablet by mouth once daily Rasagiline 1 MG tablet Discontinued 1 mg PO DAILY March 17, 2013 12:00am August 11, 2024 1:50pm Start: 10-03-2011 take 1 tablet by esperanza th once daily AZILECT TABS One tablet by mouth daily RASAGILINE MESYLATE TABS [id number] Adelita Mendoza Comment on above: Take 1 tablet by esperanza th once daily. SIMVASTATIN TABS (15 sources) HMG-CoA Reductase Inhibitor Start: 10-03-2011 End: 01-09-2017 take 1 tablet by mouth once daily SIMVASTATIN TABS One tablet by mouth daily SIMVASTATIN TABS [id number] Adelita Mendoza Start: 10-03-2011 take 1 tablet by esperanza th once daily SIMVASTATIN TABS One tablet by mouth daily SIMVASTATIN TABS [id number] Adelita Mendoza SITagliptin 100 mg oral tablet (7 sources) Dipeptidyl Peptidase 4 Inhibitor Start: 05-21-2016 End: 07-29-2017 Sitagliptin Phosphate 100 MG tablet Discontinued 50 mg PO DAILY May 21, 2016 1:00am July 29, 2017 4:01pm Start: 05-21-2016 End: 07-29-2017 take 50 mg by mouth once daily Sitagliptin Phosphate Discontinued 50 MG PO DAILY May 21, 2016 1:00am July 29, 2017 4:01pm tiZANidine 4 mg oral tablet (20 sources) Central alpha-2 Adrenergic Agonist Start: 01-26-2022 End: 02-11-2023 take 1 tablet by mouth twice daily tiZANidine (ZANAFLEX) 4 mg tablet Take 4 mg by mouth twice daily. 0 01/26/2022 02/11/2023 Discontinued Start: 08-16-2019 End: 08-11-2024 take 1 capsule by mouth at bedtime Tizanidine 4 MG capsule Discontinued 4 mg PO AT BEDTIME August 16, 2019 1:00am August 11, 2024 2:17pm Start: 03-20-2019 End: 04-25-2019 take 1 capsule by mouth twice daily Tizanidine 2 MG capsule Discontinued 2 mg PO TWICE A DAY 60 March 20, 2019 12:00am April 18, 2019 12:00am April 25, 2019 1:09am Start: 03-18-2019 End: 03-20-2019 take 1 tablet by mouth twice daily Tizanidine 4 MG tablet Discontinued 4 mg PO TWICE A DAY March 18, 2019 12:00am March 20, 2019 10:23am Start: 04-07-2015 End: 07-29-2017 take 2 tablets by mouth at bedtime Tizanidine 4 MG tablet Discontinued 8 mg PO AT BEDTIME April 07, 2015 12:00am July 29, 2017 4:01pm Start: 04-07-2015 End: 07-29-2017 take 8 mg by mouth at bedtime Tizanidine Discontinued 8 MG PO AT BEDTIME April 07, 2015 12:00am July 29, 2017 4:01pm Comment on above: Take 4 mg by mouth t wice daily. Problems Active Problems Problem Classification Problem Date Documented Da te Episodic/Chronic Abdominal pain (20 sources) Abdominal pain; Translations: [Unspecified abdominal pain] Onset: 04-25-2006 03-29-2010 Episodic Acute cerebrovascular disease (1 source) Cerebrovascular accident; Translations: [Other cerebral infarction] Chronic Diabetes mellitus with complications (1 source) Type 2 diabetes mellitus with hyperglycemia; Translations: [Type 2 diabetes mellitus with hyperglycemia] Onset: 07-26-2024 Chronic Diabetes mellitus without complication (7 sources) Diabetes mellitus; Translations: [Type 2 diabetes mellitus without complications] 04-24-2021 Chronic Disorders of lipid metabolism (20 sources) Hyperlipidemia; Translations: [Hyperlipidemia, unspecified] Onset: 05-30-2015 03-15-2008 Chronic Diverticulosis and diverticulitis (20 sources) Diverticulitis of colon; Translations: [Diverticulitis of large intestine without perforation or abscess without bleeding] 06-05-2015 Chronic Esophageal disorders (20 sources) Stricture of esophagus; Translations: [Esophageal obstruction] Onset: 02-11-2023 03-15-2008 Chronic Essential hypertension (20 sources) Essential hypertension; Translations: [Essential (primary) hypertension] Onset: 05-30-2015 Resolved: 03-20-2016 05-30-2015 Chronic Headache; including migraine (20 sources) Migraine; Translations: [Migraine, unspecified, not intractable, without status migrainosus] Onset: 02-11-2023 01-23-2022 Chronic Headache; including migraine (20 sources) Headache; Translations: [Headache] 03-15-2008 Episodic Meningitis (except that caused by tuberculosis or sexually transmitted disease) (20 sources) Arachnoiditis; 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, unspecified] 05-22-2015 Episodic Miscellaneous mental health disorders (20 sources) Non-organic sleep disorder; Translations: [Sleep disorder not due to a substance or known physiological condition, unspecified] 03-15-2008 Chronic Mood disorders (20 sources) Depressive disorder; Translations: [Depression] 03-15-2008 Chronic Nausea and vomiting (20 sources) Vomiting; Translations: [Vomiting, unspecified] Onset: 11-15-2009 Resolved: 06-07-2015 11-15-2009 Episodic Nonspecific chest pain (7 sources) Chest pain; Translations: [Chest pain, unspecified] 05-03-2021 Episodic Osteoarthritis (20 sources) Osteoarthritis of knee; Translations: [Osteoarthritis of knee, unspecified] Onset: 01-12-2015 01-13-2015 Chronic Osteoporosis (20 sources) Osteoporosis; Translations: [Age-related osteoporosis without current pathological fracture] Onset: 03-12-2012 03-12-2012 Chronic Other aftercare (20 sources) Patient encounter status; Translations: [Other extermination inspector (current) drug therapy] Onset: 05-06-2019 Episodic Other aftercare (20 sources) Taking high risk medication; Translations: [Other extermination inspector (current) drug therapy] Onset: 05-06-2019 Episodic Other aftercare (1 source) Admission statuses; Translations: [[facility]PC (current) use of opiate analgesic] 11-20-2023 Episodic Other aftercare (20 sources) Long-term current use of drug therapy; Translations: [Other long-term (current) drug therapy] Onset: 05-06-2019 10-09-2023 Episodic Other connective tissue disease (3 sources) Fibromyalgia; Translations: [Fibromyalgia] 01-23-2022 Episodic Other connective tissue disease (20 sources) Myofascial pain syndrome; Translations: [Myalgia, other site] Onset: 03-14-2023 02-11-2023 Episodic Other female genital disorders (3 sources) Vaginal bleeding; Translations: [Abnormal uterine and vaginal bleeding, unspecified] 01-23-2022 Chronic Other gastrointestinal disorders (7 sources) Irritable bowel syndrome; Translations: [Irritable bowel syndrome without diarrhea] 03-18-2019 Chronic Other gastrointestinal disorders (7 sources) Constipation; Translations: [Constipation, unspecified] 03-04-2019 Episodic Other gastrointestinal disorders (20 sources) Diarrhea; Translations: [Diarrhea, unspecified] 03-15-2008 Episodic Other gastrointestinal disorders (3 sources) Loose stool; Translations: [Other fecal abnormalities] 08-11-2024 Episodic Other gastrointestinal disorders (1 source) Other fecal abnormalities; Translations: [Other fecal abnormalities] Onset: 10-14-2024 Episodic Other gastrointestinal disorders (1 source) Diarrhea, unspecified; Translations: [Diarrhea, unspecified] Onset: 10-14-2024 Episodic Other nervous system disorders (20 sources) Carpal tunnel syndrome; Translations: [Carpal tunnel syndrome, left upper limb] Onset: 01-15-2022 10-03-2011 Chronic Other nervous system disorders (20 sources) Chronic pain syndrome; Translations: [Chronic pain syndrome] Onset: 02-25-2017 Chronic Other nervous system disorders (20 sources) Chronic pain; Translations: [Other chronic pain] Onset: 01-15-2022 Chronic Other nervous system disorders (2 sources) Chronic pain syndrome; Translations: [Chronic pain syndrome] Onset: 03-25-2023 Chronic Other nervous system disorders (1 source) Other chronic pain; Translations: [Chronic cervical pain] Onset: 09-09-2024 Chronic Other nutritional; endocrine; and metabolic disorders (20 sources) Obesity; Translations: [Obesity, unspecified] Onset: 05-30-2015 05-30-2015 Chronic Other nutritional; endocrine; and metabolic disorders (20 sources) Obese class I; Translations: [Obesity, unspecified] Onset: 07-04-2023 07-04-2023 Chronic Parkinson`s disease (20 sources) Parkinson's disease; Translations: [Parkinson's disease] 05-22-2015 Chronic Residual codes; unclassified (20 sources) Obstructive sleep apnea syndrome; Translations: [Obstructive sleep apnea (adult) (pediatric)] 03-15-2008 Chronic Rheumatoid arthritis and related disease (20 sources) Rheumatoid arthritis; Translations: [Rheumatoid arthritis, unspecified] Onset: 02-11-2023 01-23-2022 Chronic Spondylosis; intervertebral disc disorders; other back problems (20 sources) Cervical spondylosis; Translations: [Other spondylosis, cervical region] Onset: 05-04-2015 05-04-2015 Chronic Comment on above: Chronic low back tiffanie nMultiple surgeriesPain management Spondylosis; intervertebral disc disorders; other back problems (20 sources) Lumbar radiculopathy; Translations: [Radiculopathy, lumbar region] Onset: 02-25-2017 Episodic Substance-related disorders (20 sources) Continuous opioid dependence; Translations: [Opioid dependence, uncomplicated] Onset: 10-24-2022 Chronic Transient cerebral ischemia (20 sources) Transient cerebral ischemia; Translations: [Transient cerebral ischemic attack, unspecified] Onset: 02-11-2023 01-23-2022 Chronic Unclassified (20 sources) OPENED IN ERROR Onset: 04-06-2023 04-06-2023 Past or Other Problems Problem Classification Problem Date Documented Da te Episodic/Chronic Acquired foot deformities (20 sources) Foot-drop; Translations: [Foot drop, unspecified foot] Onset: 02-25-2017 02-11-2023 Episodic Acute and unspecified renal failure (20 sources) Injury of kidney; Translations: [Acute kidney failure, unspecified] Onset: 02-11-2023 08-16-2019 Episodic Cardiac dysrhythmias (20 sources) Tachycardia; Translations: [Tachycardia, unspecified] Onset: 05-30-2015 05-30-2015 Episodic Diabetes mellitus without complication (20 sources) Hyperglycemia; Translations: [Hyperglycemia, unspecified] Onset: 02-11-2023 11-16-2017 Episodic Gastritis and duodenitis (20 sources) Acute gastritis; Translations: [Acute gastritis without bleeding] Onset: 04-25-2006 03-29-2010 Episodic Immunizations and screening for infectious disease (1 source) Anti-nuclear factor positive; Translations: [Positive CARLOS (antinuclear antibody)] Episodic Inflammatory diseases of female pelvic organs (20 sources) Vaginal ulcer; Translations: [Ulceration of vagina] Onset: 02-11-2023 02-01-2022 Episodic Comment on above: granulation tissue s een, treated with silver nitrate. reocmmend vit E capsules. not a vaginal estrogen candidate. fu in 3-4 weeks if no resolution recommend biopsy. Joint disorders and dislocations; trauma-related (20 sources) Tear of medial meniscus of knee; Translations: [Other tear of medial meniscus, current injury, unspecified knee] Onset: 03-12-2012 03-12-2012 Episodic Nonmalignant breast conditions (20 sources) Breast lump; Translations: [Unspecified lump in the right breast, unspecified quadrant] Onset: 02-11-2023 Episodic Other aftercare (3 sources) Postoperative physical examination; Translations: [Encounter for other specified surgical aftercare] Onset: 02-18-2017 02-18-2017 Episodic Other aftercare (7 sources) H/O: high risk medication; Translations: [Other extermination inspector (current) drug therapy] Onset: 05-06-2019 01-15-2022 Episodic Other aftercare (3 sources) Other extermination inspector (current) drug therapy; Translations: [Encounter for long-term (current) use of medications] Onset: 04-04-2023 Episodic Other aftercare (1 source) extermination inspector (current) use of opiate analgesic; Translations: [Encounter for long-term opiate analgesic use] Onset: 02-10-2024 Episodic Other and unspecified benign neoplasm (20 sources) Benign neoplasm of colon; Translations: [Benign neoplasm of colon, unspecified] Onset: 04-25-2006 03-29-2010 Episodic Other circulatory disease (20 sources) Low blood pressure; Translations: [Hypotension, unspecified] Onset: 02-11-2023 08-17-2019 Episodic Other connective tissue disease (8 sources) Trochanteric bursitis; Translations: [Trochanteric bursitis, unspecified hip] Onset: 09-19-2016 10-04-2016 Episodic Other connective tissue disease (20 sources) Iliotibial band friction syndrome; Translations: [Iliotibial band syndrome, unspecified leg] Onset: 09-19-2016 10-04-2016 Episodic Other connective tissue disease (8 sources) Adhesive capsulitis of shoulder; Translations: [Adhesive capsulitis of unspecified shoulder] Onset: 01-12-2015 01-13-2015 Episodic Other connective tissue disease (20 sources) Impingement syndrome of shoulder region; Translations: [Impingement syndrome of unspecified shoulder] Onset: 02-01-2014 02-01-2014 Episodic Other connective tissue disease (20 sources) Neurological symptom; Translations: [Unspecified symptoms and signs involving the nervous system] Onset: 02-11-2023 05-03-2021 Episodic Other connective tissue disease (4 sources) Myalgia, other site; Translations: [Myalgia, other site] Onset: 03-14-2023 Episodic Other disorders of stomach and duodenum (20 sources) Gastroparesis syndrome; Translations: [Gastroparesis] Onset: 02-11-2023 03-04-2019 Episodic Other disorders of stomach and duodenum (2 sources) Gastroparesis; Translations: [Gastroparesis] Onset: 07-12-2024 Episodic Other gastrointestinal disorders (20 sources) Functional disorder of intestine; Translations: [Other functional disorders of intestine] Onset: 04-25-2006 03-29-2010 Episodic Other non-traumatic joint disorders (16 sources) Knee pain; Translations: [Pain in left knee] Onset: 03-12-2012 01-12-2015 Episodic Other non-traumatic joint disorders (8 sources) Pain in right shoulder; Translations: [Pain in joint, shoulder region] Onset: 01-12-2015 01-12-2015 Episodic Other non-traumatic joint disorders (8 sources) Pain in unspecified shoulder; Translations: [Pain in joint, shoulder region] Onset: 01-18-2014 01-19-2014 Episodic Other screening for suspected conditions (not mental disorders or infectious disease) (17 sources) CT of abdomen abnormal; Translations: [Abnormal findings on diagnostic imaging of other abdominal regions, including retroperitoneum] Onset: 06-07-2015 Resolved: 06-07-2015 06-07-2015 Episodic Residual codes; unclassified (20 sources) Insomnia; Translations: [Insomnia, unspecified] Onset: 02-11-2023 01-23-2022 Episodic Residual codes; unclassified (1 source) Pain Onset: 02-10-2024 Episodic Septicemia (except in labor) (20 sources) Septic shock; Translations: [Sepsis, unspecified organism] Onset: 02-11-2023 08-16-2019 Episodic Sprains and strains (8 sources) Sprain of unspecified rotator cuff capsule, initial encounter; Translations: [Rotator cuff (capsule) sprain] Onset: 01-18-2014 01-19-2014 Episodic Suicide and intentional self-inflicted injury (20 sources) Intentional drug overdose by tablet; Translations: [Poisoning by unspecified drugs, medicaments and biological substances, intentional self-harm, initial encounter] Onset: 10-24-2022 10-24-2022 Episodic Results Test Name Value Interpretation Reference Range Facility Endocrinology Visit Reporton 10-25-2024 Endocrinology Visit Report [facility] [address] [place] [address]. [address] [place] [address] OFFICE VISIT Date of Service: 10/25/24 MR#: [id number] Acct: [id number] Name: ROSEANNA JONES Rep #: [id number] : 1960 Provider: Jerry Gardiner Age/Sex: 64/F Location: [facility] Status: Signed Intake Vital Signs 10/06/24 14:27 10/25/24 08:24 Height 5 ft 7 in 5 ft 7 in Weight: 198 lb 6 oz BMI 31.0 BP 130/80 H Blood Pressure Location Rt brachial Position Sitting Pulse 95 Pulse Source Monitor Pulse Oximetry (%) 95 Oxygen Delivery Method room air Intake Visit Reasons: Diabetes Chief Complaint: Diabetes Is patient in pain?: No Allergies indomethacin (From Indocin) Allergy (Verified 10/25/24 08:26) Rash indomethacin sodium (From Indocin) Allergy (Verified 10/25/24 08:26) Rash Penicillins Allergy (Verified 10/25/24 08:26) Rash amitriptyline Adverse Reaction (Intermediate, Verified 10/25/24 08:26) hallucinations canagliflozin (From Invokana) Adverse Reaction (Mild, Verified 10/25/24 08:26) UTI pioglitazone (From Actos) Adverse Reaction (Mild, Verified 10/25/24 08:26) migraine clarithromycin (From Biaxin) Adverse Reaction (Verified 10/25/24 08:26) Diarrhea Medications ???Medication ???Instructions ???Recorded ???Confirmed ???Type metformin 1,000 mg tablet 1,000 mg PO BID 12/25/21 10/25/24 History propranolol 20 mg tablet 20 mg PO BID 12/25/21 10/25/24 His tory escitalopram oxalate 20 mg tablet 20 mg PO QDAY 08/11/24 10/25/24 H istory (Lexapro) fentanyl 25 mcg/hr transdermal 1 patch transdermal Q72H 08/11/24 10/25/24 History patch insulin degludec 100 unit/mL (3 70 unit subcut DAILY 08/11/2410/14 History mL) subcutaneous pen (Tresiba FlexTouch U-100 insulin) meloxicam 7.5 mg tablet 7.5 mg PO QDAY 08/11/24 10/25/24 H istory omeprazole 40 mg capsule,delayed 40 mg PO QDAY 08/11/24 10/25/24 Hi story release mirtazapine 30 mg tablet 30 mg PO QHS 10/04/24 10/25/24 His tory rosuvastatin 5 mg tablet 5 mg PO QHS 10/04/24 10/25/24 Hist ory colestipol 1 gram tablet 1 g PO QDAY #30 tabs 10/19/2410/14 Rx blood-glucose sensor (FreeStyle #2 ea 10/25/24 10/25/24 Rx Amie 3 Plus Sensor device) insulin lispro 100 unit/mL 25 unit (0.25 mL) subcut TID #15 m L 10/25/24 10/25/24 Rx subcutaneous pen (Humalog KwikPen (U-100) Insulin) [facility] Medical History (Updated 10/25/24 @ 15:[address] Alfred Solano MD) Polyneuropathy due to type 2 diabetes mellitus Obesity Wears glasses Wears dentures Post-menopausal Depression Insulin dependent diabetes mellitus Arthritis High cholesterol Fatty liver Restless legs Back pain Dietary restriction History of diverticulitis Gastric reflux Non-smoker History of pain when walking History of echocardiogram History of stress test Septic shock Parkinson disease Hypertension Arachnoiditis Lupus Surgical History History of esophagogastroduodenoscopy (EGD) Hx of colonoscopy Status post carpal tunnel release S/P left knee surgery H/O: hysterectomy S/P cholecystectomy History of back surgery Family History Brother Heart disease Mother Osteoarthritis CAD (coronary artery disease) Hypertension Diabetes Breast cancer Father CVA (cerebral vascular accident) Colon cancer CAD (coronary artery disease) Social History Smoking Status: Never smoker alcohol intake: never substance use type: does not use caffeine: No seatbelt use: always do you feel safe at home: Yes additional social history: disability- HPI HPI Chief Complaint: Diabetes Details: ROSEANNA JONES, is a 64 F who presents to the office today for evaluation and management of diabetes type 2. Roseanna states she was diagnosed with DM type 2 fifteen years ago. Her medications started on oral agents and new medications were added over time. A1C is 8.5% She is currently taking Tresiba 70 units daily, Humalog 45 units with supper, metformin and Ozempic 1 mg. She is also on a statin, no KWAKU or ARB. She reports that she was diagnosed with gastroparesis shortly after being diagnosed with diabetes. She had early satiety and nausea. This is worse since being started on Ozempic. She was recently placed on Reglan to improve gastric emptying. She has neuropathy with numbness in her toes. I don't see a microalbumin ordered. GFR is normal. She denies any vascular complications. She states she has Lupus and Parkinson's disease. Her diet includes grazing small amounts of food during the day like cutie oranges and then a more sizeable dinner like chicken (more content not included)... Normal [facility] Gastroenterology Visit Repor ton 10-19-2024 Gastroenterology Visit Report [facility] [address] 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 Accompanied by: Friend Is patient in pain?: No Allergies indomethacin (From Indocin) Allergy (Verified 10/19/24 14:59) Rash indomethacin sodium (From Indocin) Allergy (Verified 10/19/24 14:59) Rash Penicillins Allergy (Verified 10/19/24 14:59) Rash amitriptyline Adverse Reaction (Intermediate, Verified 10/19/24 14:59) hallucinations canagliflozin (From Invokana) Adverse Reaction (Mild, Verified 10/19/24 14:59) UTI pioglitazone (From Actos) Adverse Reaction (Mild, Verified 10/19/24 14:59) migraine clarithromycin (From Biaxin) Adverse Reaction (Verified 10/19/24 14:59) Diarrhea Medications ???Medication ???Instructions ???Recorded ???Confirmed ???Type metformin 1,000 mg tablet 1,000 mg PO BID 12/25/21 10/19/24 History propranolol 20 mg tablet 20 mg PO BID 12/25/21 10/19/24 His tory escitalopram oxalate 20 mg tablet 20 mg PO QDAY 08/11/24 10/19/24 H istory (Lexapro) fentanyl 25 mcg/hr transdermal 1 patch transdermal Q72H 08/11/24 10/19/24 History patch insulin degludec 100 unit/mL (3 70 unit subcut DAILY 08/11/2412/08 History mL) subcutaneous pen (Tresiba FlexTouch U-100 insulin) meloxicam 7.5 mg tablet 7.5 mg PO QDAY 08/11/24 10/19/24 H istory omeprazole 40 mg capsule,delayed 40 mg PO QDAY 08/11/24 10/19/24 Hi story release semaglutide 1 mg/dose (4 mg/3 mL) 1 mg subcut WE 08/11/24 10/19/24 History subcutaneous pen injector (Ozempic) insulin degludec 100 unit/mL (3 60 unit subcut QHS 10/04/24 History mL) subcutaneous pen (Tresiba FlexTouch U-100 insulin) mirtazapine 30 mg tablet 30 mg PO QHS 10/04/24 10/19/24 His tory rosuvastatin 5 mg tablet 5 mg PO QHS 10/04/24 10/19/24 Hist ory colestipol 1 gram tablet 1 g PO QDAY #30 tabs 10/19/2412/08 Rx metoclopramide HCl 5 mg tablet 5 mg PO QAC 8 weeks #168 tabs 12/0810/19/24 Rx (Reglan) PFS Medical History Wears glasses Wears dentures Post-menopausal Depression Insulin dependent diabetes mellitus Arthritis High cholesterol Fatty liver Restless legs Back pain Dietary restriction History of diverticulitis Gastric reflux Non-smoker History of pain when walking History of echocardiogram History of stress test Septic shock Parkinson disease Hypertension Arachnoiditis Lupus Surgical History History of esophagogastroduodenoscopy (EGD) Hx of colonoscopy Status post carpal tunnel release S/P left knee surgery H/O: hysterectomy S/P cholecystectomy History of back surgery Family History Brother Heart disease Mother Osteoarthritis CAD (coronary artery disease) Hypertension Diabetes Breast cancer Father CVA (cerebral vascular accident) Colon cancer CAD (coronary artery disease) Social History Smoking Status: Never smoker alcohol intake: never substance use type: does not use caffeine: No seatbelt use: always do you feel safe at home: Yes additional social history: disability- HPI HPI Chief Complaint: diarrhea Details: ROSEANNA JONES, is a 64 F who presents to the office today for f/u. [facility]GI established in Jul 2024 for nausea, LLQ pain and diarrhea. PMHx of gastroparesis diagnosed 20 years ago. EGD 10.06.24; Small (< 5 mm) esophageal varices. - Portal hypertensive gastropathy. Biopsied. - No gross lesions in the entire examined duodenum. Biopsied. Colonoscopy 10.06.24 - Diverticulosis in the sigmoid colon. - Congested mucosa in the sigmoid colon, in the transverse colon, at the hepatic flexure and in the ascending colon. Biopsied. - The examination was otherwise normal on direct and retroflexion views. OV 5.6.25 Pt here today for f/u after endoscopy to review results. She continues to have issues with nausea, LUQ pain and loose stools. She endorses a hx of gastroparesis. She has not had a recent GES but has in the past. ROS Const Constitutional: Positive for weakness; No fatigue, fever(s) or weight change ENT ENT: No difficulty swallowing Cardio Cardiology: Positive for leg pain with exertion Gastro GI: Positive for abdominal pain, bloating, diarrhea, heartburn and nausea/dysp (more content not included)... Normal [facility] Bedside Glucoseon 10-06-2024 FINGERSTICK GLU 191 mg/dL High 74-106 [facility] Comment on above: Result Comment: SHELBY OSULLIVAN OF PATIENT CARE PER NURSING PROTOCOL Performed By: #### L [id number] #### [facility] [address] [place], [address] Colonoscopy Reporton 025 Colonoscopy Report [facility] Medical Records Department [address] [place] [address] Colonoscopy Report MR#: [id number] Acct: [id number] Name: ROSEANNA JONES Rep #: [id number] : 1960 64 From: Polo Mac DO PCP: Dr. Reed Vazquez MD Status:REG [facility] Patient Name: Roseanna Jones Procedure Date: 10/06/2024 3:03 PM Date of : 1960 Age: 64 Procedure: Colonoscopy Indications: Generalized abdominal pain, Clinically significant diarrhea of unexplained origin Providers: Polo Mac DO Medicines: Monitored Anesthesia Care Patient Profile: This is a 64 year old female. Refer to note in patient chart for documentation of history and physical. Patient has symptoms of chronic abdominal distention, chronic epigastric abdominal pain and chronic dyspepsia. Last Colonoscopy: date unknown. Unable to locate last colonoscopy report. Complications: No immediate complications. Procedure: Pre-Anesthesia Assessment: - Prior to the procedure, a History and Physical was performed, and patient medications and allergies were reviewed. The patient is competent. The risks and benefits of the procedure and the sedation options and risks were discussed with the patient. All questions were answered and informed consent was obtained. Patient identification and proposed procedure were verified by the physician in the pre-procedure area. Mental Status Examination: alert and oriented. Airway Examination: normal oropharyngeal airway and neck mobility. Respiratory Examination: clear to auscultation. CV Examination: normal. Prophylactic Antibiotics: The patient does not require prophylactic antibiotics. Prior Anticoagulants: The patient has taken no anticoagulant or antiplatelet agents except for NSAID medication. ASA Grade Assessment: II - A patient with mild systemic disease. After reviewing the risks and benefits, the patient was deemed in satisfactory condition to undergo the procedure. The anesthesia plan was to use monitored anesthesia care (MAC). Immediately prior to administration of medications, the patient was re-assessed for adequacy to receive sedatives. The heart rate, respiratory rate, oxygen saturations, blood pressure, adequacy of pulmonary ventilation, and response to care were monitored throughout the procedure. The physical status of the patient was re-assessed after the procedure. After I obtained informed consent, the scope was passed under direct vision. Throughout the procedure, the patient's blood pressure, pulse, and oxygen saturations were monitored continuously. The Colonoscope was introduced through the anus and advanced to the cecum, identified by appendiceal orifice and ileocecal valve. The colonoscopy was performed without difficulty. The patient tolerated the procedure well. The quality of the bowel preparation was adequate. The ileocecal valve, appendiceal orifice, and rectum were photographed. Scope In: 3:07:24 PM Scope Withdrawal Time 0 hours 12 minutes 39 seconds Scope Out: 3:23:54 PM Total Procedure Duration Time 0 hours 16 minutes 30 seconds Findings: The perianal and digital rectal examinations were normal. A few small-mouthed diverticula were found in the sigmoid colon. An area of mildly congested mucosa was found in the sigmoid colon, in the transverse colon, at the hepatic flexure and in the ascending colon. Biopsies were taken with a cold forceps for histology. Verification of patient identification for the specimen was done. Estimated blood loss was minimal. The exam was otherwise without abnormality on direct and retroflexion views. Impression: - Diverticulosis in the sigmoid colon. - Congested mucosa in the sigmoid colon, in the transverse colon, at the hepatic flexure and in the ascending colon. Biopsied. - The examination was otherwise normal on direct and retroflexion views. Recommendation: - Discharge patient to home. - Resume previous diet. - Continue present medications. - Await pathology results. - Repeat colonoscopy for surveillance based on pathology results. - Return to GI office. Procedure Code(s): --- Professional --- 19805, Colonoscopy, flexible; with biopsy, single or multiple CPT copyright 2021 [employer]. All rights reserved. The codes documented in this report are preliminary and upon missile inspector review may be revised to meet current compliance requirements. Polo Mac DO 10/06/2024 3:35:20 PM This report has been signed electronically. Number of Addenda: 0 Note Initiated On: 10/06/2024 3:03 PM 10/06/24 1535 Date Polo Mac DO Cosigner Signature: Date (if indicated) CC: Dr. Reed Vazquez MD; Polo Mac DO Date Dictated: 10/06/24 1503 (more content not included)... Normal [facility] EGD Reporton 10-06-2024 EGD Report [facility] Medical Records Department [address] [place] [address] EGD Report MR#: [id number] Acct: [id number] Name: ROSEANNA JONES Rep #: [id number] : 1960 64 From: Polo Mac DO PCP: Dr. Reed Vaqzuez MD Status:[facility] Patient Name: Roseanna Jones Procedure Date: 10/06/2024 2:32 PM Date of : 1960 Age: 64 Procedure: Upper GI endoscopy Indications: Epigastric abdominal pain, Functional Dyspepsia, Heartburn Providers: Polo Mac DO Medicines: Monitored Anesthesia Care Patient Profile: This is a 64 year old female. Refer to note in patient chart for documentation of history and physical. Patient has symptoms of chronic abdominal distention, chronic epigastric abdominal pain and chronic dyspepsia. Complications: No immediate complications. Procedure: Pre-Anesthesia Assessment: - Prior to the procedure, a History and Physical was performed, and patient medications and allergies were reviewed. The patient is competent. The risks and benefits of the procedure and the sedation options and risks were discussed with the patient. All questions were answered and informed consent was obtained. Patient identification and proposed procedure were verified by the physician in the pre-procedure area. Mental Status Examination: alert and oriented. Airway Examination: normal oropharyngeal airway and neck mobility. Respiratory Examination: clear to auscultation. CV Examination: normal. Prophylactic Antibiotics: The patient does not require prophylactic antibiotics. Prior Anticoagulants: The patient has taken no anticoagulant or antiplatelet agents except for NSAID medication. ASA Grade Assessment: II - A patient with mild systemic disease. After reviewing the risks and benefits, the patient was deemed in satisfactory condition to undergo the procedure. The anesthesia plan was to use monitored anesthesia care (MAC). Immediately prior to administration of medications, the patient was re-assessed for adequacy to receive sedatives. The heart rate, respiratory rate, oxygen saturations, blood pressure, adequacy of pulmonary ventilation, and response to care were monitored throughout the procedure. The physical status of the patient was re-assessed after the procedure. After obtaining informed consent, the endoscope was passed under direct vision. Throughout the procedure, the patient's blood pressure, pulse, and oxygen saturations were monitored continuously. The Colonoscope was introduced through the mouth, and advanced to the third part of the duodenum. Small bowel enteroscopy was deemed necessary. The upper GI endoscopy was accomplished with ease. The patient tolerated the procedure well. Scope In: 2:58:43 PM Scope Out: 3:03:42 PM Total Procedure Duration Time 0 hours 4 minutes 59 seconds Findings: Small (< 5 mm) varices were found in the lower third of the esophagus. They were 5 mm in largest diameter. Moderate portal hypertensive gastropathy was found in the entire examined stomach. Biopsies were taken with a cold forceps for histology. Verification of patient identification for the specimen was done. Estimated blood loss was minimal. Biopsies were taken with a cold forceps for Helicobacter pylori testing. Verification of patient identification for the specimen was done. Estimated blood loss was minimal. No gross lesions were noted in the entire examined duodenum. Biopsies were taken with a cold forceps for histology. Verification of patient identification for the specimen was done. Estimated blood loss was minimal. One non-bleeding superficial gastric ulcer with no stigmata of bleeding was found in the gastric antrum. The lesion was 3 mm in largest dimension. Biopsies were taken with a cold forceps for histology. Verification of patient identification for the specimen was done. Estimated blood loss was minimal. Impression: - Small (< 5 mm) esophageal varices. - Portal hypertensive gastropathy. Biopsied. - No gross lesions in the entire examined duodenum. Biopsied. Recommendation: - Discharge patient to home. - Resume previous diet. - Continue present medications. - Await pathology results. Procedure Code(s): --- Professional --- 61299, Small intestinal endoscopy, enteroscopy beyond second portion of duodenum, not including ileum; with biopsy, single or multiple CPT copyright 2021 [employer]. All rights reserved. The codes documented in this report are preliminary and upon missile inspector review may be revised to meet current compliance requirements. Polo Mac DO 10/06/2024 3:32:36 PM This report has been signed electronically. Number of Addenda: 0 Note Initiated On: 10/06/2024 2:32 PM 10/06/24 1532 Date Polo Mac DO Cosigner Sig (more content not included)... Normal [facility] deOrdered By: Polo Mac on 10-06-2024 Bedside Glucose (Misc Panel) 191 mg/dL High 74-106 [facility] Comment on above: MANAGEMENT OF PATIEN T CARE PER NURSING PROTOCOL Immunohistochemical Stainson 10-06-2024 Immunohistochemical Stains Patient Age/Sex Location Account Attending Physician ROSEANNA JONES 64/F EN [id number] Polo Mac DO Specimen: [id number] Received: 10/07/24 Status: MAURO Sandhu Num: [id number] Spec Type: EGD BIOPSY Subm Dr: Polo Friend, HEADER OPERATION: Colonoscopy, EGD with biopsy PRE-OP DIAGNOSIS: Nausea, right upper quadrant pain, loose stools TISSUE SUBMITTED: A- Duodenum biopsy, B- Antrum ulcer biopsy, C- Gastric ulcer biopsy, D- Random colon biopsy MICROSCOPIC DIAGNOSIS A. Small bowel, duodenum, biopsy: * Normal villous architecture with mildly increased intraepithelial lymphocytes - see note. Note: This pattern of injury is etiologically nonspecific???and the differential diagnosis includes sensitivity to gluten and non-gluten proteins, small intestinal bacterial overgrowth, stasis related changes, infection, protein calorie malnutrition, tropical sprue, and medication injury (NSAIDs, Olmesartan / Benicar, Mycophenolic acid, Idelalisib, for example). If celiac disease is a clinical concern, additional clinical studies, such as tTG-IgA, are recommended. B. Stomach, antrum, ulcer, biopsy: * Antral mucosa with active chronic gastritis. * IHC negative for H pylori organisms. C. Stomach, body, biopsy: * Oxyntic mucosa with chronic gastritis. * IHC negative for H pylori organisms. D. Colon, random, biopsy: * No specific pathologic change. * The histologic features of microscopic colitis are not demonstrated. MICROSCOPIC DESCRIPTION Slides are reviewed. These tests were developed and their performance characteristics determined by [facility]. They may not have been cleared or approved by the U.S. Food and Drug Administration. The FDA has determined that such clearance or approval is not necessary. The above immunohistochemical/dualIS H markers are ordered and reviewed by the Pathologist. Patient Age/Sex Location Account Attending Physician ROBERTROSEANNA Shivam 64/F EN [id number] Polo Mac DO GROSS DESCRIPTION A. Received in formalin in a container labeled with the patient's name, date of , and duodenum biopsy are 2 wilson-pink fragments of mucosal tissue, each measuring 0.5 x 0.4 x 0.3 cm. Submitted in toto in A1. B. Received in formalin in a container labeled with the patient's name, date of , and antrum ulcer biopsy for H. pylori and path is a 0.6 x 0.3 x 0.2 cm fragment of wilson-pink mucosal tissue. Submitted in toto in B1. C. Received in formalin in a container labeled with the patient's name, date of , and gastric body biopsy for H. pylori and path are multiple wilson-pink fragments of mucosal tissue measuring 0.8 x 0.6 x 0.3 cm in aggregate. Submitted in toto in C1. D. Received in formalin in a container labeled with the patient's name, date of , and random colon biopsy are multiple wilson-pink fragments of mucosal tissue measuring 0.9 x 0.8 x 0.3 cm in aggregate. Submitted in toto in D1. [facility] 10/13/2024 CPT:33611h5,91241p5 Patient Age/Sex Location Account Attending Physician ROSEANNA JONES 64/F EN [id number] Polo Mca DO Signed (signature on file) Dr. Alisia Sykes MD 10/13/24 1402 Normal [facility] Comment on above: Performed By: #### P SHANA #### [facility] [place], [address] MR/POSTOP.ANEon 10-06-2024 MR/POSTOP.ANE [facility] Medical Records Department [address] [address] Anesthesia Postop Eval I 10/06/24 1533 MR#: [id number] Acct: [id number] Name: ROSEANNA JONES Rep #: [id number] : 1960 64 From: Saman Claudio PCP: Dr. Reed Vazquez MD Status:REG SD Y Race: C Location: [place] [address] Anesthesia: Postop Eval I Current Vital Signs Temperature: 97.4 F Pulse Rate: 86 Blood Pressure: 98/59 Respiratory Rate: 16 Pulse Ox: 94 Oxygen Delivery Method: Room Air Assessment Airway patent: Yes Spontaneous unlabored respirations: Yes Mental status: Awake and Calm nausea: No Vomiting: No Anesthesia Complication: No Fluid Hydration Crystalloid volume administer (ml): 600 Total IV fluid infused: 600 Progress Note Anesthesia document: Postop Eval 1 completed: Yes 10/06/24 1534 Date Saman Jones Signature: Date CC: Signed Normal [facility] MR/IPOKWAWZ4um 10-06-2024 MR/POSTOPAN2 [facility] Medical Records Department [address] [place] [address] Anesthesia Postop Eval II 10/06/24 1606 MR#: [id number] Acct: [id number] Name: ROSEANNA JONES Rep #: [id number] : 1960 64 From: Chidi Bui MD PCP: Dr. Reed Vazquez MD Status:REG SD Y Race: C Location: [place] [address] Anesthesia Postop Eval I Sum Postop Eval Completion status Anesthesia document: Postop Eval 1 completed: Yes Anesthesia Postop Eval I Summary Anesthesia Postop Eval I Summary: Anesthesia Postop Eval I: Assessment Summary Airway patent Yes 10/06/24 15:34 [email or web address] Spontaneous unlabored Yes 10/06/24 15:34 [email or web address] respirations Mental status Awake,Calm 10/06/24 15:34 [email or web address] nausea No 10/06/24 15:34 [email or web address] Vomiting No 10/06/24 15:34 [email or web address] Anesthesia Postop Eval I: Fluid Summary Crystalloid volume administer 600 10/06/24 15:34 [email or web address] (ml) Colloids volume administered ( ml) Blood Product volume administered (ml) Total IV fluid infused 600 10/06/24 15:34 [email or web address] Anesthesia Postop Eval I: Summary Notes Anesthesia Complication No 10/06/24 15:34 [email or web address] Anesthesia Complication Comment: Post-operative progress note Anesthesia: Postop Eval II Evaluation Mental status: Awake Pain Level: 0 nausea: No Vomiting: No 10/06/24 1606 Date Chidi Bui MD Cosigner Signature: Date CC: Signed Normal [facility] MR/PATACon 10-04-2024 MR/PAT.[facility] Medical Records Department [address] [place] [address] PAT - Anesthesia 10/04/24 1034 MR#: [id number] Acct: [id number] Name: ROSEANNA JONES Rep #: [id number] : 1960 64 From: Chidi Bui MD PCP: Dr. 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 When Was Last Pacemaker Check QUESTION #4 FULL TEXT: You/Your Family Experience fever (hyperthermia) with Anesthesia Last Oral Intake Last Oral intake: Last Oral Intake NPO since Meds taken in AM with sips of water? 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 Female Yes 10/04/24 10:15 HX of Motion Sickness No 10/04/24 10:15 HX of N/V After Surgery No 10/04/24 10:15 Non-Smoker Yes 10/04/24 10:15 Duration of Surgery greater No 10/04/24 10:15 than 60 minutes Number of Risk Factors 2 10/04/24 10:15 PONV Score Moderate Risk 10/04/24 10:15 Height Weight Height Weight: Anesthesia: Height Weight Height 5 ft 7 in 01/31/22 15:37 Respiratory Assessment Respiratory Assessment - gymnastic coach: Respiratory Tract Infection Hx - gymnastic coach Hx Respiratory Tract Infection No 10/04/24 10:15 STOP Sleep Apnea STOP Sleep Apnea - gymnastic coach: STOP Sleep Apnea - gymnastic coach Hx Hypertension Yes: CONTROLLED WITH MED 10/04/24 10:15 Hx Sleep Apnea No 10/04/24 10:15 CPAP Yes 04/24/21 20:32 BIPAP No 04/24/21 20:32 Do you snore loudly (louder No 10/04/24 10:15 than talking or can be heard Do you often feel tired/ No 10/04/24 10:15 fatigued/ sleepy during daytime? Has anyone observed you stop No 10/04/24 10:15 breathing during sleep? STOP Results Negative 10/04/24 10:15 QUESTION #5 FULL TEXT : Do you snore loudly (louder than talking or can be heard through closed doors)? 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 Specify any problems Hx of Preganancy in last 3 No 10/04/24 10:15 Months Nurse Filling Out Transfusion DSCHRIBER 10/04/24 10:15 Questions: Date: 10/04/24 10/04/24 10:15 Time: 10:16 10/04/24 10:15 Patient unable to answer at this time (ie. confused, unrespo /Reproduction History /Reproductive History - gymnastic coach: /Reproductive Hx- gymnastic coach Hx Now No 10/04/24 10:15 Gestational Age (in weeks): EDC: Hx Hx Para Hx Section SAB No 10/04/24 10:15 PFSH Medical History (Updated 10/04/24 @ 10:23 by Caprice Billingsley) Wears glasses Wears dentures Post-menopausal Depression Insulin dependent diabetes mellitus Arthritis High cholesterol Fatty liver Restless legs Back pain Dietary restriction History of diverticulitis Gastric reflux Non-smoker History of pain when walking History of echocardiogram History of stress test Septic shock Parkinson disease Hypertension Arachnoiditis Lupus Home Medications ???Medication ???Instructions ???Recorded ???Last Taken ???Type metformin 1,000 mg tablet 1,000 mg PO BID 12/25/21 Unknown H istory propranolol 20 mg tablet 20 mg PO BID 12/25/21 Unknown Hist ory escitalopram oxalate 20 mg tablet 20 mg PO QDAY 08/11/24 Unknown Hi story (Lexapro) fentanyl 25 mcg/hr transdermal 1 patch transdermal Q72H 08/11/24 Unknown History patch insulin degludec 100 unit/mL (3 70 unit subcut DAILY 08/11/ (more content not included)... Normal [facility] BENZO CONFIRM, URINEon 09-09 7-Aminoclonazepam Confirm (U) [Mass/Vol] <25 Normal <25 [facility] Comment on above: Order Comment: Speci men Type: URINE SPECIMENOrdering Facility: [facility] Address: [address] [place] [address] Result Comment: 7-Am inoclonazepam is a metabolite of clonazepam. Performed By: #### U QNTX, UBENZ ####[facility] [id number] [address] Alpha hydroxyalprazolam Confirm (U) [Mass/Vol] <25 Normal <25 [facility] Comment on above: Order Comment: Speci men Type: URINE SPECIMENOrdering Facility: [facility] Address: [address] [place] [address] Result Comment: Alph a-hydroxyalprazolam is a metabolite of alprazolam. Performed By: #### U QNTX, UBENZ ####[facility] [id number] [address] Alpha hydroxytriazolam Confirm (U) [Mass/Vol] <25 Normal <25 [facility] Comment on above: Order Comment: Speci men Type: URINE SPECIMENOrdering Facility: [facility] Address: [address] [place] [address] Result Comment: Alph a-hydroxytriazolam is a metabolite of triazolam. Performed By: #### U QNTX, UBENZ ####[facility] [id number] [address] OF [place] BENZO CONFIRM, NOTE Normal [facility] Comment on above: Order Comment: Speci men Type: URINE SPECIMENOrdering Facility: [facility] Address: [address] [place] [address] Result Comment: For medical purposes only. Not valid for legal or forensic purposes. This test was developed, and its performance characteristics determined by the [facility] and [facility] Medicine. It has not been cleared or approved by the FDA. The [facility] Department of Pathology and Laboratory Medicine is regulated under CLIA as qualified to perform high-complexity testing. This test is used for clinical purposes. It should not be regarded as investigational or for research. Performed By: #### U QNTX, UBENZ ####[facility] LABCLIA [id number] [address] [place] LORazepam Confirm (U) [Mass/Vol] <25 Normal <25 [facility] Comment on above: Order Comment: Speci men Type: URINE SPECIMENOrdering Facility: [facility] Address: [address] [place] [address] Performed By: #### U QNTX, UBENZ ####[facility]CL[facility] [id number] [address] STATES [facility] Nordiazepam Confirm (U) [Mass/Vol] <25 Normal <25 [facility] Comment on above: Order Comment: Speci men Type: URINE SPECIMENOrdering Facility: [facility] Address: [address] [place] [address] Performed By: #### U QNTX, UBENZ ####[facility] [id number] [address] [place] Oxazepam Confirm (U) [Mass/Vol] <25 Normal <25 [facility] Comment on above: Order Comment: Speci men Type: URINE SPECIMENOrdering Facility: [facility] Address: [address] [place] [address] Performed By: #### U QNTX, UBENZ ####[facility] [id number] [address] [place] Temazepam Confirm (U) [Mass/Vol] <25 Normal <25 [facility] Comment on above: Order Comment: Speci men Type: URINE SPECIMENOrdering Facility: [facility] Address: [address] [place] [address] Performed By: #### U QNTX, UBENZ ####[facility] [id number] [address] [place] CNOVon 09-09-2024 CNOV Office Visit ([facility] ) -- ROSEANNA JONES ([id number]) 1960 F Date Time Provider Department 09/09/24 1:30 PM KATTY STEINER [facility] During your visit today, we recorded the following information about you: Pulse Respiration Blood pressure Weight 79/minute 16/minute 137/77 89.4 kg Katty Steiner APRN.MACHINE SPECIALIST 09/09/2024 2:02 PM Signed Chief Complaint: Pain History of Present Illness: Roseanna Jones is a 64 year old year old female being seen at [facility] for a evaluation and/or management of her chronic pain. Roseanna Jones last had a on 07/13/24. Since the last visit her pain level has remained stable. She reports an increase in cervical pain(Denies trauma). She is requesting an xr and PT. VAS: 7/10 Pain Location: back, neck, leg, arms Radiation: down left leg Character: aching, burning Numbness/tingling: toes left foot and hand Burning: left foot Weakness: denies Falls: denies Worsening factors: walking, standing, bending, activity Relieving factors: heat, ice and rest Patient denies any bowel or bladder dysfunction. Since the last office visit the patients medical history has not changed. The patient denies any new diagnoses, hospital visits or ER visits. The patient is currently prescribed Fentanyl Patches and gabapentin from our office. The Fentanyl Patch is located on the right side of her lower back(witnessed). The medications are effective. The patient denies nausea, vomiting, constipation,rashes, drowsiness,weight gain, weight loss,dizziness,and fatigue. PDMP website checked and validated. The OARRS report has been reviewed and is consistent with the patients medical history and medication intake. Last Opioid agreement effective date: 09/09/2024 Last UDS: Reviewed - No inconsistencies noted. last uds 07/11/23------consistent(+) ETOH Hx of DM manuel Last uds 11/20/23-----consistent manuel [facility] Urine Drug Screen Summary Report Date Value Ref Range Status 11/20/2023 FINAL Final Comment: Gabapentin, MS, Ur RFX ToxAssure Flex 23, Ur Test Result Flag Units Drug Present Fentanyl 26 ng/mg creat Norfentanyl 15 ng/mg creat Source of fentanyl is a scheduled prescription medication, including IV, patch, and transmucosal formulations. Norfentanyl is an expected metabolite of fentanyl. Gabapentin PRESENT Test Result Flag Units Ref Range Creatinine 111 mg/dL >=20 Declared Medications: Medication list was not provided. For clinical consultation, please call . [facility] Urine Drug Screen and Benzo Confirm Urine Panel: No results found for: UQCANN, UQBNZL, NWK8XLL, UQAMPH, UQMAMP, UQBUPRE, UQNORBUP, UQMTHD, UQEDDP, UQTRAM, UQDTRM, UQFNTL, UQNFTL, UQCODE, UQMORP, UQDCDN, UQHCOD, UQOXYC, UQHMOR, UQOXYM, UQCREA, UQPH, UQSPGR, UQOXID, UQSPQ Chronic Pain Functional Assessment Tools Pain Disability Index: 07/13/2024 09/09/2024 Pain Disability Index Family/Home Responsibilities: This category includes chores or duties performed around the house (e.g. yard work), errands or favors for other family members (e.g. driving the children to school) 7 -- Recreation: This category includes hobbies, sports, and other similar leisure time activities 7 8 Social Activity: This category refers to activities which involve participation with friends and acquaintances, other than family members. It includes parties, theater, concerts, dinning out, and other social functions 7 5 Occupation: This category refers to activities that are a part of or directly related to ones' job. This includes non-paying jobs as well, such as that of a housewife or volunteer worker 7 10 Total disability Sexual Behavior: This category refers to the frequency and quality of one's sex life 7 0 No disability Self Care: This category includes activities which involve personal maintenance and independent daily living (e.g. taking a shower, driving, getting dress, etc) 7 0 No disability Life Support Activity: This category refers to basic-life supporting behaviors such as eating, sleeping, and breathing 7 0 No disability PDI Score 49 Pain Enjoyment of Life and General Activity Scale (0-10): PEG: A Three-Item Scale Assessing Pain Intensity and Interference What number best describes your pain on average in the past week?: 8 (09/09/2024 1: (more content not included)... Normal [facility] QUANT TOX PANELon 09-09-2024 9-Axuwnqhfnw-8,5-Dime thyl-3,3-Diphenylpyrr olidine (EDDP) Confirm (U) [Mass/Vol] <25 Normal <25 [facility] Comment on above: Order Comment: Speci men Type: URINE SPECIMEN Ordering Facility: [facility] Address: [address] [place] [address] Result Comment: 5-Bkhkzxniom-1,9-kjaiwjrb-5,3-diphenylpyrrolidine (EDDP) is a metabolite of methadone. Performed By: #### U QNTX, UBENZ #### [facility] CLIA [id number] [address] [place] [address] [place] 6-Monoacetylmorphine (6-JACLYN) (U) [Mass/Vol] <5 Normal <5 [facility] Comment on above: Order Comment: Speci men Type: URINE SPECIMEN Ordering Facility: [facility] Address: [address] [place] [address] Result Comment: 6-Mo noacetylmorphine is a metabolite of heroin. Performed By: #### U QNTX, UBENZ #### [facility] CLIA [id number] [address] [place] [address] [place] Amphetamine Confirm (U) [Mass/Vol] <25 Normal <25 [facility] Comment on above: Order Comment: Speci men Type: URINE SPECIMEN Ordering Facility: [facility] Address: [address] [place] [address] Result Comment: Meth ylphenidate does not contain or metabolize to amphetamine. Performed By: #### U QNTX, UBENZ #### [facility] CLIA [id number] [address] [place] [address] [place] Benzoylecgonine Confirm (U) [Mass/Vol] <25 Normal <25 [facility] Comment on above: Order Comment: Speci men Type: URINE SPECIMEN Ordering Facility: [facility] Address: [address] [place] [address] Result Comment: Phong oylecgonine is a metabolite of cocaine. Performed By: #### U QNTX, UBENZ #### [facility] CLIA [id number] [address] [place] [address] [place] Buprenorphine (U) [Mass/Vol] <5 Normal <5 [facility] Comment on above: Order Comment: Speci men Type: URINE SPECIMEN Ordering Facility: [facility] Address: [address] [place] [address] Result Comment: Donna ents using transdermal formulations of buprenorphine may yield undetectable buprenorphine and norbuprenorphine urine concentrations. Performed By: #### U QNTX, UBENZ #### [facility] CLIA [id number] [address] [place] [address] [place] Carboxy tetrahydrocannabinol (U) [Mass/Vol] <10 Normal <10 [facility] Comment on above: Order Comment: Speci men Type: URINE SPECIMEN Ordering Facility: [facility] Address: [address] [place] [address] Result Comment: 11-N nx-5-fgtwtdc-tetrahydrocannabinol (ruxun-3-hmpizbi-THC) is a metabolite of heezz-8-goqrtquscwcevijsrzig (THC). This test does not differentiate between delta-8 or delta-9 carboxy-THC. Performed By: #### U QNTX, UBENZ #### [facility] CLIA [id number] [address] [place] [address] [place] Codeine Confirm (U) [Mass/Vol] <25 Normal <25 [facility] Comment on above: Order Comment: Speci men Type: URINE SPECIMEN Ordering Facility: [facility] Address: [address] [place] [address] Performed By: #### U QNTX, UBENZ #### [facility] CLIA [id number] [address] [place] [address] [place] fentaNYL Confirm (U) [Mass/Vol] 20 ng/mL High <1 [facility] Comment on above: Order Comment: Speci men Type: URINE SPECIMEN Ordering Facility: [facility] Address: [address] [place] [address] Result Comment: Pres ence of fentanyl is consistent with use of a fentanyl-containing drug. Fentanyl is metabolized to norfentanyl. Performed By: #### U QNTX, UBENZ #### [facility] CLIA [id number] [address] [place] [address] [place] HYDROcodone Confirm (U) [Mass/Vol] <25 Normal <25 [facility] Comment on above: Order Comment: Speci men Type: URINE SPECIMEN Ordering Facility: [facility] Address: [address] [place] [address] Performed By: #### U QNTX, UBENZ #### [facility] CLIA [id number] [address] [place] [address] [place] HYDROmorphone Confirm (U) [Mass/Vol] <25 Normal <25 [facility] Comment on above: Order Comment: Speci men Type: URINE SPECIMEN Ordering Facility: [facility] Address: [address] [place] [address] Performed By: #### U QNTX, UBENZ #### [facility] CLIA [id number] [address] [place] [address] [place] MDA, UR <25 Normal <25 [facility] Comment on above: Order Comment: Speci men Type: URINE SPECIMEN Ordering Facility: [facility] Address: [address] [place] [address] Result Comment: 3,4 Methylenedioxyamphetamine is also known as MDA. Performed By: #### U QNTX, UBENZ #### [facility] CLIA [id number] [address] [place] [address] [place] MDEA, UR <25 Normal <25 [facility] Comment on above: Order Comment: Speci men Type: URINE SPECIMEN Ordering Facility: [facility] Address: [address] [place] [address] Result Comment: 3,4 Jntyblnpmchcmv-K-efauwszzuuaohiik is also known as MDEA. Performed By: #### U QNTX, UBENZ #### [facility] CLIA [id number] [address] [place] [address] [place] MDMA, UR <25 Normal <25 [facility] Comment on above: Order Comment: Speci men Type: URINE SPECIMEN Ordering Facility: [facility] Address: [address] [place] [address] Result Comment: 3,4- Methylenedioxymethamphetamine is also known as MDMA. Performed By: #### U QNTX, UBENZ #### [facility] CLIA [id number] [address] [place] [address] [place] Methadone Confirm (U) [Mass/Vol] <25 Normal <25 [facility] Comment on above: Order Comment: Speci men Type: URINE SPECIMEN Ordering Facility: [facility] Address: [address] [place] [address] Performed By: #### U QNTX, UBENZ #### [facility] CLIA [id number] [address] [place] [address] [place] Methamphetamine Confirm (U) [Mass/Vol] <25 Normal <25 [facility] Comment on above: Order Comment: Speci men Type: URINE SPECIMEN Ordering Facility: [facility] Address: [address] [place] [address] Performed By: #### U QNTX, UBENZ #### [facility] CLIA [id number] [address] [place] [address] [place] Morphine Confirm (U) [Mass/Vol] <25 Normal <25 [facility] [facility] Comment on above: Order Comment: Speci men Type: URINE SPECIMEN Ordering Facility: [facility] Address: [address] [place] [address] Performed By: #### U QNTX, UBENZ #### [facility] CLIA [id number] [address] [place] [address] [place] Norbuprenorphine (U) [Mass/Vol] <10 Normal <10 [facility] Comment on above: Order Comment: Speci men Type: URINE SPECIMEN Ordering Facility: [facility] Address: [address] [place] [address] Result Comment: Norb uprenorphine is a metabolite of buprenorphine. Patients using transdermal formulations of buprenorphine may yield undetectable buprenorphine and norbuprenorphine urine concentrations. Performed By: #### U QNTX, UBENZ #### [facility] CLIA [id number] [address] [place] [address] [place] Norfentanyl Confirm (U) [Mass/Vol] 16 ng/mL High <1 [facility] Comment on above: Order Comment: Speci men Type: URINE SPECIMEN Ordering Facility: [facility] Address: [address] [place] [address] Result Comment: Norf entanyl is a metabolite of fentanyl. Presence of norfentanyl is consistent with use of a fentanyl-containing drug. Performed By: #### U QNTX, UBENZ #### [facility] CLIA [id number] [address] [place] [address] [place] NORHYDROCODONE, UR <25 Normal <25 [facility] Comment on above: Order Comment: Speci men Type: URINE SPECIMEN Ordering Facility: [facility] Address: [address] [place] [address] Result Comment: Norh ydrocodone is a metabolite of hydrocodone. Performed By: #### U QNTX, UBENZ #### [facility] CLIA [id number] [address] [place] [address] [place] NOROXYCODONE, UR <25 Normal <25 [facility] Comment on above: Order Comment: Speci men Type: URINE SPECIMEN Ordering Facility: [facility] Address: [address] [place] [address] Result Comment: Noro xycodone is a metabolite of oxycodone. Performed By: #### U QNTX, UBENZ #### [facility] CLIA [id number] [address] [place] [address] [place] NOROXYMORPHONE, UR <25 Normal <25 [facility] Comment on above: Order Comment: Speci men Type: URINE SPECIMEN Ordering Facility: [facility] Address: [address] [place] [address] Result Comment: Noro xymorphone is a metabolite of oxymorphone and oxycodone and a minor metabolite of naltrexone and naloxone. Performed By: #### U QNTX, UBENZ #### [facility] CLIA [id number] [address] [place] [address] [place] Nortramadol (U) [Mass/Vol] <25 Normal <25 [facility] Comment on above: Order Comment: Speci men Type: URINE SPECIMEN Ordering Facility: [facility] Address: [address] [place] [address] Result Comment: O-de smethyltramadol is a metabolite of tramadol. Performed By: #### U QNTX, UBENZ #### [facility] CLIA [id number] [address] [place] [address] [place] NOTE, UR TOXICOLOGY PANEL Normal [facility] Comment on above: Order Comment: Speci men Type: URINE SPECIMEN Ordering Facility: [facility] Address: [address] [place] [address] Result Comment: For medical purposes only. Not valid for legal or forensic purposes. This test was developed, and its performance characteristics determined by the [facility] Department of Pathology and Laboratory Medicine. It has not been cleared or approved by the FDA. The [facility] Department of Pathology and Laboratory Medicine is regulated under CLIA as qualified to perform high-complexity testing. This test is used for clinical purposes. It should not be regarded as investigational or for research. Performed By: #### U QNTX, UBENZ #### [facility] CLIA [id number] [address] [place] [address] [place] oxyCODONE Confirm (U) [Mass/Vol] <25 Normal <25 [facility] Comment on above: Order Comment: Speci men Type: URINE SPECIMEN Ordering Facility: [facility] Address: [address] [place] [address] Performed By: #### U QNTX, UBENZ #### [facility] CLIA [id number] [address] [place] [address] [place] oxyMORphone Confirm (U) [Mass/Vol] <25 Normal <25 [facility] Comment on above: Order Comment: Speci men Type: URINE SPECIMEN Ordering Facility: [facility] Address: [address] [place] [address] Performed By: #### U QNTX, UBENZ #### [facility] CLIA [id number] [address] [place] [address] [place] Phencyclidine Confirm (U) [Mass/Vol] <10 Normal <10 [facility] Comment on above: Order Comment: Speci men Type: URINE SPECIMEN Ordering Facility: [facility] Address: [address] [place] [address] Result Comment: Phen cyclidine is also known as PCP. Performed By: #### U QNTX, UBENZ #### [facility] CLIA [id number] [address] [place] [address] [place] PHENTERMINE, UR <25 Normal <25 [facility] Comment on above: Order Comment: Speci men Type: URINE SPECIMEN Ordering Facility: [facility] Address: [address] [place] [address] Performed By: #### U QNTX, UBENZ #### [facility] CLIA [id number] [address] [place] [address] [place] traMADol Confirm (U) [Mass/Vol] <25 Normal <25 [facility] Comment on above: Order Comment: Speci men Type: URINE SPECIMEN Ordering Facility: [facility] Address: [address] [place] [address] Performed By: #### U QNTX, UBENZ #### [facility] CLIA [id number] [address] [place] [address] [place] SPECIMEN VALIDITY, URINEon 0 09-09-2024 CREATININE,URINE 58.8 mg/dL Normal 20.0-300.0 [facility] Comment on above: Order Comment: Speci men Type: URINE SPECIMEN Ordering Facility: [facility] Address: [address] [place] [address] Performed By: #### L [id number] #### [facility] CLIA [id number] [address] [place] [address] [place] CREATININE,URINE 58.6 mg/dL Normal 20.0-300.0 [facility] Comment on above: Order Comment: Speci men Type: URINE SPECIMEN Ordering Facility: [facility] Address: [address] [place] [address] Performed By: #### L [id number] #### [facility] CLIA [id number] [address] [place] [address] [place] NITRITES,URINE <50 Normal <500 [facility] Comment on above: Order Comment: Speci men Type: URINE SPECIMEN Ordering Facility: [facility] Address: [address] [place] [address] Performed By: #### L [id number] #### [facility] CLIA [id number] [address] [place] [address] [place] OXIDANTS,URINE 46 mg/L Normal <200 [facility] Comment on above: Order Comment: Speci men Type: URINE SPECIMEN Ordering Facility: [facility] Address: [address] [place] [address] Performed By: #### L [id number] #### [facility] CLIA [id number] [address] [place] [address] [place] pH (U) 5.3 [pH] Normal 4.5-8.0 [facility] Comment on above: Order Comment: Speci men Type: URINE SPECIMEN Ordering Facility: [facility] Address: [address] [place] [address] Performed By: #### L [id number] #### [facility] CLIA [id number] [address] [place] [address] [place] SPEC GRAVITY,UR 1.020 Normal 1.003-1.03 5 [facility] Comment on above: Order Comment: Speci men Type: URINE SPECIMEN Ordering Facility: [facility] Address: [address] [place] [address] Performed By: #### L [id number] #### [facility] CLIA [id number] [address] [place] [address] [place] SPECIMEN VALIDITY QUALITY Specimen quality results within acceptable limits Normal [facility] Comment on above: Order Comment: Speci men Type: URINE SPECIMEN Ordering Facility: [facility] Address: [address] [place] [address] Performed By: #### L [id number] #### [facility] CLIA [id number] [address] [place] [address] [place] XR CERVICAL 4V AP/LAT/OBLon 09-09-2024 XR CERVICAL 4V AP/LAT/OBL * * *Final Report* * * DATE OF EXAM: Sep 09 2024 2:28PM ANGEL 5311 - XR CERVICAL 4V AP/LAT/OBL / PROCEDURE REASON: multiple diagnoses * * * * Physician Interpretation * * * * XR CERVICAL 4V AP/LAT/OBL Ordering Physician: KATTY LOVETT 09/09/2024 2:28 PM CERVICAL SPINE WITH OBLIQUES Clinical Statement: Neck pain FINDINGS: 5 images of the cervical spine were obtained and compared to a previous study dated 03/25/2018. The dens is intact and in good alignment. The neck is in a flexed position. There is diffuse anterior bridging osteophyte formation which has progressed. The facet joints and vertebral bodies are in good alignment. There is mild to moderate multilevel degenerative disc disease which has progressed. There is narrowing of the foramina bilaterally at multiple levels due to degenerative change of the uncovertebral joints. IMPRESSION: Diffuse degenerative change and anterior bridging osteophyte formation. The findings have progressed. Legislative Aide: MADELIN Transcribe Date/Time: Sep 16 2024 8:47A Dictated by : PROSPER ARCHULETA MD This examination was interpreted and the report reviewed and electronically signed by: PROSPER ARCHULETA MD on Sep 16 2024 8:48AM EST [id number] Normal [facility] Gastroenterology Visit Repor ton 08-11-2024 Gastroenterology Visit Report [facility] [address] [place] [address] OFFICE VISIT Date of Service: 08/11/24 MR#: [id number] Acct: [id number] Name: ROSEANNA JONES Rep #: [id number] : 1960 Provider: ARELY Jacinto Age/Sex: 64/F Location: [facility] Status: Signed Intake Vital Signs 01/31/22 15:37 Height 5 ft 7 in Intake Visit Reasons: Gastroparesis Chief Complaint: LUQ pain 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 Allergies indomethacin (From Indocin) Allergy (Verified 12/25/21 09:51) Rash indomethacin sodium (From Indocin) Allergy (Verified 12/25/21 09:51) Rash Penicillins Allergy (Verified 12/25/21 09:51) Rash amitriptyline Adverse Reaction (Intermediate, Verified 01/23/22 14:54) hallucinations canagliflozin (From Invokana) Adverse Reaction (Mild, Verified 01/23/22 14:54) UTI pioglitazone (From Actos) Adverse Reaction (Mild, Verified 01/23/22 14:54) migraine clarithromycin (From Biaxin) Adverse Reaction (Verified 12/25/21 09:51) Diarrhea Medications ???Medication ???Instructions ???Recorded ???Confirmed ???Type metformin 1,000 mg tablet 1,000 mg PO DAILY 12/25/21 5 History propranolol 20 mg tablet 20 mg PO .qd 12/25/21 08/11/24 His tory dicyclomine 10 mg capsule 10 mg PO BID #20 caps 08/11/24 Rx escitalopram oxalate 20 mg tablet 20 mg PO QDAY 08/11/24 08/11/24 H istory (Lexapro) fentanyl 25 mcg/hr transdermal 1 patch transdermal Q72H 08/11/24 08/11/24 History patch insulin degludec 100 unit/mL (3 15 unit subcut BID 08/11/24 History mL) subcutaneous pen (Tresiba FlexTouch U-100 insulin) meloxicam 7.5 mg tablet 7.5 mg PO QDAY 08/11/24 08/11/24 H istory mirtazapine 15 mg tablet (Remeron) 15 mg PO QHS 08/11/24 08/11/24 H istory omeprazole 40 mg capsule,delayed 40 mg PO QDAY 08/11/24 08/11/24 Hi story release semaglutide 1 mg/dose (4 mg/3 mL) 1 mg subcut QWEEK 08/11/24 History subcutaneous pen injector (Ozempic) Patient : No Nurse's Note: OV 08.11.24 Pt here to establish care with [facility]. Pt reports diarrhea daily. Pt states she has dx of gastroparesis. Prior h/o colonoscopy 5 years ago. Reports her daughter has celiac disease and would like to know if she may have celiac as well. Takes metformin daily. [facility] Medical History (Updated 08/11/24 @ 13:50 by ARELY Jacinto) Septic shock COVID TIA (transient ischemic attack) Parkinson disease Diabetes Hypertension Sleep apnea Arachnoiditis Lupus Surgical History History of knee surgery History of cholecystectomy Status post arthroscopy of hip Status post carpal tunnel release S/P left knee surgery H/O: hysterectomy S/P cholecystectomy History of back surgery Family History Brother Heart disease Mother Osteoarthritis CAD (coronary artery disease) Hypertension Diabetes Breast cancer Father CVA (cerebral vascular accident) Colon cancer CAD (coronary artery disease) Social History (Updated 01/31/22 @ 15:37 by Yoselin Paige) Smoking Status: Never smoker alcohol intake: never substance use type: does not use caffeine: No seatbelt use: always do you feel safe at home: Yes additional social history: disability- HPI HPI Chief Complaint: LUQ pain Details: ROSEANNA JONES, is a 64 F who presents to the office today for establishment. Over the past year pt had been having nausea, LUQ pain and diarrhea. Her pain is achy and typically happening after eating a meal. She has not noticed any alleviating factors.She does not have any heartburn but takes Nexium daily. She becomes nauseous after eating as well. She has a hx of gastroparesis diagnosed about 20 years ago. Her diarrhea is random and not associated with pain. She does not ever have formed stools. She has up tp 4 bm per day that are soft. She notes that her daughter was diagnosed with celiac. SHe did have a celiac panel that was negative. She does not noticed any correlation with certain foods. Her last EGD and colonoscopy was about 5 years ago. She mentions having polyps in the past. ROS Const Constitutional: Positive for weakness; No fatigue, fever(s) or weight change ENT ENT: No difficulty swallowing Cardio Cardiology: Positive for leg pain with exertion Gastro GI: Positive for abdominal pain, bloating, diarrhea, excessive flatus and nausea/dyspepsia; No belching, change in bowel habits, change in stool character, coffee ground emesis, constipation, cramping, heartburn, difficulty swallowing, feeling full early, incontinent of stools, Vomiting blood/hematemesis, Blood in stool, loose stools, Black,tarry stools, pain with swallowing, vomiting or other Musc Musculoskeletal: Pos (more content not included)... Normal [facility] Celiac AB,Comprehensiveon ANTIGLIADIN IGA 10 units Normal 0-19 [facility] Comment on above: Order Comment: Order Date: 07/08/24 Order Info: 075- - CELAB Result Comment: Nega tive 0 - 19 Weak Positive 20 - 30 Moderate to Strong Positive >30 Performed By: #### L 3410.2350 #### [facility] [address] [place], [place], [id number] ANTIGLIADIN IGG 3 units Normal 0-19 [facility] Comment on above: Order Comment: Order Date: 07/08/24 Order Info: 075- - CELAB Result Comment: Nega tive 0 - 19 Weak Positive 20 - 30 Moderate to Strong Positive >30 Performed By: #### L 3410.2350 #### [facility] [address] [place], [address] ENDOMYSIAL IGA Negative Normal Negative [facility] Comment on above: Order Comment: Order Date: 07/08/24 Order Info: 075- - CELAB Performed By: #### L 3410.2350 #### [facility] [address] [place], [place], [address] IMMUNOGLOB A QN 646 mg/dL High 87-352 [facility] Comment on above: Order Comment: Order Date: 07/08/24 Order Info: 075- - CELAB Result Comment: Perf ormed at: [facility] [id number] Recruiter Coordinator: John House PhD, Phone: [phone] Performed By: #### L 3410.2350 #### [facility] [address] [place], [place], [id number] tTG IGA <2 Normal 0-3 [facility] Comment on above: Order Comment: Order Date: 07/08/24 Order Info: 075- - CELAB Result Comment: Nega tive 0 - 3 Weak Positive 4 - 10 Positive >10 Tissue Transglutaminase (tTG) has been identified as the endomysial antigen. Studies have demonstr- ated that endomysial IgA antibodies have over 99% specificity for gluten sensitive enteropathy. Performed By: #### L 3410.2350 #### [facility] [address] [place], [place], [address] tTG IGG 3 U/mL Normal 0-5 [facility] Comment on above: Order Comment: Order Date: 07/08/24 Order Info: 0751-1 - CELAB Result Comment: Nega tive 0 - 5 Weak Positive 6 - 9 Positive >9 Performed By: #### L 3410.2350 #### [facility] [address] [place], [place], [address] Deamidated gliadin IgA antib becki assayOrdered By: Reed Vazquez on 07-15-2024 Anti-Gliadin IgA Antibody 10 units 0-19 [facility] Comment on above: Negative 0 - 19 Weak Positive 20 - 30 Moderate to Strong Positive >30 Deamidated gliadin IgG antib becki assayOrdered By: Reed Vazquez on 07-15-2024 Anti-Gliadin IgG Antibody 3 units 0-19 [facility] Comment on above: Negative 0 - 19 Weak Positive 20 - 30 Moderate to Strong Positive >30 Endomysial IgA antibody assa yOrdered By: Reed Vazquez on 07-15-2024 Endomysial IgA Antibody Negative Negative [facility] No Panel InformationOrdered By: Reed Vazquez on 07-15-2024 Tissue Transglutaminase IgG Ab 3 U/mL 0-5 [facility] Comment on above: Negative 0 - 5 Weak Positive 6 - 9 Positive >9 Serum immunoglobulin A measu rementOrdered By: Reed Vazquez on 07-15-2024 Immunoglobulin A 646 mg/dL High 87-352 [facility] Comment on above: Performed at: [address] [id number] Director: John House PhD, Phone: [phone] tTG IgA Qn (S)Ordered By: Arely Vazquez on 07-15-2024 Tissue Transglutaminase IgA Ab <2 U/mL 0-3 [facility] Comment on above: Negative 0 - 3 Weak Positive 4 - 10 Positive >10 Tissue Transglutaminase (tTG) has been identified as the endomysial antigen. Studies have demonstr- ated that endomysial IgA antibodies have over 99% specificity for gluten sensitive enteropathy. Albumin to globulin ratioOrd ered By: Reed Vazquez on 07-08-2024 Albumin/Globulin [Mass ratio] 0.8 {ratio} Low 0.9-2.4 [facility] Bilirubin, totalOrdered By: Reed Vazquez on 07-08-2024 Bilirubin [Mass/Vol] 0.70 mg/dL 0.20-1.00 [facility] Comment on above: For patients on eltr ombopag therapy, use of Dimension Callands TBIL is not recommended. Blood urea nitrogen (BUN)/cr eatinine ratioOrdered By: Reed Vazquez on 07-08-2024 Urea nitrogen/Creatinine [Mass ratio] 14.5 mg/mg 10-20 [facility] Carbon dioxide measurementOr dered By: Reed Vazquez on 07-08-2024 CO2 [Moles/Vol] 27.0 mmol/L 21.0-32.0 [facility] Chloride measurementOrdered By: Reed Vazquez on 07-08-2024 Chloride [Moles/Vol] 101 mmol/L 98-107 [facility] Comprehensive Metabolic Prof ilon 07-08-2024 Albumin [Mass/Vol] 3.7 g/dL Normal 3.2-5.0 [facility] Comment on above: Order Comment: LIPID Performed By: #### L 500.4100, L500.4050 #### [facility] [address] [place], [address] Albumin/Globulin [Mass ratio] 0.8 {ratio} Low 0.9-2.4 [facility] Comment on above: Order Comment: LIPID Performed By: #### L 500.4100, L500.4050 #### [facility] [address] [place], [address] ALK P 90 U/L Normal 45-117 [facility] Comment on above: Order Comment: LIPID Performed By: #### L 500.4100, L500.4050 #### [facility] [address] [place], [address] ALT [Catalytic activity/Vol] 49 U/L Normal 13-56 [facility] Comment on above: Order Comment: LIPID Performed By: #### L 500.4100, L500.4050 #### [facility] [address] [place], [address] AST [Catalytic activity/Vol] 50 U/L High 15-37 [facility] Comment on above: Order Comment: LIPID Performed By: #### L 500.4100, L500.4050 #### [facility] [address] [place], [address] Bilirubin [Mass/Vol] 0.70 mg/dL Normal 0.20-1.00 [facility] Comment on above: Order Comment: LIPID Result Comment: For patients on eltrombopag therapy, use of Dimension Callands TBIL is not recommended. Performed By: #### L 500.4100, L500.4050 #### [facility] [address] [place], [address] BUN/CRE 14.5 RATIO Normal 10-20 [facility] Comment on above: Order Comment: LIPID Performed By: #### L 500.4100, L500.4050 #### [facility] [address] [place], [address] CA,Total 9.4 mg/dL Normal 8.5-10.1 [facility] Comment on above: Order Comment: LIPID Performed By: #### L 500.4100, L500.4050 #### [facility] [address] [place], [address] Chloride [Moles/Vol] 101 mmol/L Normal 98-107 [facility] Comment on above: Order Comment: LIPID Performed By: #### L 500.4100, L500.4050 #### [facility] [address] [place], [address] CO2 [Moles/Vol] 27.0 mmol/L Normal 21.0-32.0 [facility] Comment on above: Order Comment: LIPID Performed By: #### L 500.4100, L500.4050 #### [facility] [address] [place], [address] Creatinine [Mass/Vol] 0.76 mg/dL Normal 0.55-1.02 [facility] Comment on above: Order Comment: LIPID Result Comment: The validity of the calculated GFR GFRAA in patients over 70 years has not been determined. Clinical correlation is essential. Performed By: #### L 500.4100, L500.4050 #### [facility] [address] [place], [address] EST GFR - AA 99 mL/min Normal >60 [facility] Comment on above: Order Comment: LIPID Result Comment: Afri can Latvian GFR Calc Performed By: #### L 500.4100, L500.4050 #### [facility] [address] [place], [address] GAP 9 Normal 5-15 [facility] Comment on above: Order Comment: LIPID Performed By: #### L 500.4100, L500.4050 #### [facility] [address] [place], [address] GFR/1.73 sq M.predicted among non-blacks MDRD (S/P/Bld) [Vol rate/Area] 82 mL/min/{1.73_m2} Normal >60 [facility] Comment on above: Order Comment: LIPID Result Comment: Non- GFR Calc Performed By: #### L 500.4100, L500.4050 #### [facility] [address] [place], [address] Globulin (S) [Mass/Vol] 4.4 g/dL High 2.2-4.2 [facility] Comment on above: Order Comment: LIPID Performed By: #### L 500.4100, L500.4050 #### [facility] [address] [place], [address] Glucose [Mass/Vol] 267 mg/dL High 74-106 [facility] Comment on above: Order Comment: LIPID Result Comment: Gluc ose result greater than or equal to 200 mg/dL suggests DIABETES MELLITUS per A.D.A. criteria. Performed By: #### L 500.4100, L500.4050 #### [facility] [address] [place], [address] Potassium [Moles/Vol] 4.0 mmol/L Normal 3.5-5.1 [facility] Comment on above: Order Comment: LIPID Performed By: #### L 500.4100, L500.4050 #### [facility] [address] [place], [address] Sodium [Moles/Vol] 137 mmol/L Normal 136-145 [facility] Comment on above: Order Comment: LIPID Performed By: #### L 500.4100, L500.4050 #### [facility] [address] [place], [address] T PROT 8.1 g/dL Normal 6.4-8.2 [facility] Comment on above: Order Comment: LIPID Performed By: #### L 500.4100, L500.4050 #### [facility] [address] [place], [address] Urea nitrogen [Mass/Vol] 11 mg/dL Normal 7-18 [facility] Comment on above: Order Comment: LIPID Performed By: #### L 500.4100, L500.4050 #### [facility] [address] [place], [address] Estimated glomerular filtrat ion rate (GFR) AmericanOrdered By: Reed Vazquez on 07-08-2024 Estimated GFR (MDRD) Amer 99 mL/min >60 [facility] Comment on above: GFR Calc Glomerular filtration rate ( GFR) estimationOrdered By: Reed Vazquez on 07-08-2024 Estimated GFR (MDRD) Non-Af Amer 82 mL/min >60 [facility] Comment on above: Non- GFR Calc Glucose measurementOrdered B y: Reed Vazquez on 07-08-2024 Glucose [Mass/Vol] 267 mg/dL High 74-106 [facility] Comment on above: Glucose result great er than or equal to 200 mg/dLsuggests DIABETES MELLITUS per A.D.A. criteria. High density lipoprotein (HD L) measurementOrdered By: Reed Vazquez on 07-08-2024 Cholesterol in HDL [Mass/Vol] 40 mg/dL >40 [facility] Comment on above: The drugs N-Acetylcy steine and Metamizole may falsely depress this assay. Reference Range HDL <40 mg/dL Low HDL Cholesterol HDL >or= 60 mg/dL High HDL Cholesterol Laboratory - Chemistry and C hemistry - challengeOrdered By: Reed Vazquez on 07-08-2024 AST [Catalytic activity/Vol] 50 U/L High 15-37 [facility] Lipid Profileon 07-08-2024 Cholesterol [Mass/Vol] 129 mg/dL Normal 200 [facility] Comment on above: Order Comment: LIPID Result Comment: <200 mg/dL Desirable 200-240 mg/dL Borderline >240 mg/dL High Risk Performed By: #### L 500.4100, L500.4050 #### [facility] [address] [place], [address] Cholesterol in HDL [Mass/Vol] 40 mg/dL Normal [facility] Comment on above: Order Comment: LIPID Result Comment: The drugs N-Acetylcysteine and Metamizole may falsely depress this assay. Reference Range HDL <40 mg/dL Low HDL Cholesterol HDL >or= 60 mg/dL High HDL Cholesterol Performed By: #### L 500.4100, L500.4050 #### [facility] [address] [place], [address] Cholesterol in LDL [Mass/Vol] 53 mg/dL Normal 0-130 [facility] Comment on above: Order Comment: LIPID Performed By: #### L 500.4100, L500.4050 #### [facility] [address] [place], [address] Cholesterol in VLDL [Mass/Vol] 36 mg/dL Normal 5-40 [facility] Comment on above: Order Comment: LIPID Performed By: #### L 500.4100, L500.4050 #### [facility] [address] [place], [address] Triglyceride [Mass/Vol] 180 mg/dL Normal [facility] Comment on above: Order Comment: LIPID Result Comment: The drugs N-Acetylcysteine and Metamizole may falsely depress this assay. Serum Triglycerides Reference Interval Normal <150 mg/dL Borderline high 150 - 199 mg/dL High 200 - 499 mg/dL Very High > or = 500 mg/dL Performed By: #### L 500.4100, L500.4050 #### [facility] [address] [place], [address] Low density lipoprotein (LDL ) cholesterol measurementOrdered By: Reed Vazquez on 07-08-2024 Cholesterol in LDL [Mass/Vol] 53 mg/dL 0-130 [facility] Potassium measurementOrdered By: Reed Vazquez on 07-08-2024 Potassium [Moles/Vol] 4.0 mmol/L 3.5-5.1 [facility] Serum anion gap measurementO rdered By: Reed Vazquez on 07-08-2024 Anion gap [Moles/Vol] 9 mmol/L 5-15 [facility] Serum globulin measurementOr dered By: Reed Vazquez on 07-08-2024 Globulin (S) [Mass/Vol] 4.4 g/dL High 2.2-4.2 [facility] Serum or plasma alanine rosa otransferase (ALT) measurementOrdered By: Reed Vazquez on 07-08-2024 ALT [Catalytic activity/Vol] 49 U/L 13-56 [facility] Serum or plasma albumin abril urement (mass/volume)Ordered By: Reed Vazquez on 07-08-2024 Albumin [Mass/Vol] 3.7 g/dL 3.2-5.0 [facility] Serum or plasma alkaline teresa sphatase measurementOrdered By: Reed Vazquez on 07-08-2024 ALP [Catalytic activity/Vol] 90 U/L 45-117 [facility] Serum or plasma calcium abril urement (mass/volume)Ordered By: Reed Vazquez on 07-08-2024 Calcium [Mass/Vol] 9.4 mg/dL 8.5-10.1 [facility] Serum or plasma cholesterol measurement (mass/volume)Ordered By: Reed Vazquez on 07-08-2024 Cholesterol [Mass/Vol] 129 mg/dL <200 [facility] Comment on above: <200 mg/dL Desirable 200-240 mg/dL Borderline >240 mg/dL High Risk Serum or plasma creatinine m easurement (mass/volume)Ordered By: Reed Vazquez on 07-08-2024 Creatinine [Mass/Vol] 0.76 mg/dL 0.55-1.02 [facility] Comment on above: The validity of the calculated GFR & GFRAA in patients over 70 years has not been determined. Clinical correlation is essential. Serum or plasma urea nitroge n measurement (mass/volume)Ordered By: Reed Vazquez on 07-08-2024 Urea nitrogen [Mass/Vol] 11 mg/dL 7-18 [facility] Sodium levelOrdered By: Reed Vazquez on 07-08-2024 Sodium [Moles/Vol] 137 mmol/L 136-145 [facility] Total proteinOrdered By: Zuleika Vazquez on 07-08-2024 Protein [Mass/Vol] 8.1 g/dL 6.4-8.2 [facility] Triglycerides measurementOrd ered By: Reed Vazquez on 07-08-2024 Triglyceride [Mass/Vol] 180 mg/dL <199 [facility] Comment on above: The drugs N-Acetylcy steine and Metamizole may falsely depress this assay.Serum Triglycerides Reference Interval Normal <150 mg/dL Borderline high 150 - 199 mg/dL High 200 - 499 mg/dL Very High > or = 500 mg/dL Very low density lipoprotein (VLDL) cholesterol measurementOrdered By: Reed Vazquez on 07-08-2024 VLDL Cholesterol 36 mg/dL 5-40 [facility] CNOVon 04-13-2024 CNOV Office Visit ([facility] ) -- ROSEANNA JONES ([id number]) 1960 F Date Time Provider Department 04/13/24 2:00 PM KATTY STEINER [facility] During your visit today, we recorded the following information about you: Pulse Blood pressure Weight 82/minute 124/82 86.2 kg Katty Steiner, STAFF CYTOTECHNOLOGIST.MACHINE SPECIALIST 04/13/2024 2:17 PM Signed Chief Complaint: Pain History of Present Illness: Roseanna Jones is a 63 year old year old female being seen at [facility] for a evaluation and/or management of her chronic pain. Roseanna Jones last had a on 02/10/24. Since the last visit her pain level has remained stable. VAS: 7-8/10 Pain Location: back, neck, leg, arms Radiation: down left leg Character: aching, burning Numbness/tingling: toes left foot and hand Burning: left foot Weakness: denies Falls: denies Worsening factors: walking, standing, bending, activity Relieving factors: heat, ice and rest Patient denies any bowel or bladder dysfunction. Since the last office visit the patients medical history has not changed. The patient denies any new diagnoses, hospital visits or ER visits. The patient is currently prescribed Fentanyl Patches and gabapentin from our office. The Fentanyl Patch is located on the left side of her lower back(witnessed). The medications are effective. The patient denies nausea, vomiting, constipation,rashes, drowsiness,weight gain, weight loss,dizziness,and fatigue. The OARRS report has been reviewed and is consistent with the patients medical history and medication intake. Last UDS: Reviewed - No inconsistencies noted.(+)ETOH Hx of DM Summary Report Date Value Ref Range Status 11/20/2023 FINAL Final Comment: Gabapentin, MS, Ur RFX ToxAssure Flex 23, Ur Test Result Flag Units Drug Present Fentanyl 26 ng/mg creat Norfentanyl 15 ng/mg creat Source of fentanyl is a scheduled prescription medication, including IV, patch, and transmucosal formulations. Norfentanyl is an expected metabolite of fentanyl. Gabapentin PRESENT Test Result Flag Units Ref Range Creatinine 111 mg/dL >=20 Declared Medications: Medication list was not provided. For clinical consultation, please call . Lab Results Component Value Date SUMM FINAL 11/20/2023 Summary Report (Summary) Date Value Ref Range Status 03/28/2022 FINAL Final Comment: TOXASSURE COMP DRUG ANALYSIS,UR Test Result Flag Units Drug Present Morphine 3648 ng/mg creat Normorphine 79 ng/mg creat Potential sources of large amounts of morphine in the absence of codeine include administration of morphine or use of heroin. Normorphine is an expected metabolite of morphine. Oxycodone 4959 ng/mg creat Oxymorphone 3010 ng/mg creat Noroxycodone 2027 ng/mg creat Noroxymorphone 508 ng/mg creat Sources of oxycodone are scheduled prescription medications. Oxymorphone, noroxycodone, and noroxymorphone are expected metabolites of oxycodone. Oxymorphone is also available as a scheduled prescription medication. Gabapentin PRESENT Citalopram PRESENT Desmethylcitalopram PRESENT Desmethylcitalopram is an expected metabolite of citalopram or the enantiomeric form, escitalopram. Mirtazapine PRESENT Acetaminophen PRESENT Ibuprofen PRESENT Propranolol PRESENT Test Result Flag Units Ref Range Creatinine 63 mg/dL >=20 Declared Medications: Medication list was not provided. For clinical consultation, please call . PDMP website checked and validated. OARRS report reviewed on November 20, 2023 by Katyt Steiner APRN.CNP and is consistent with the patients medical history and medication intake. ROS: See HPI 10/09/2023 02/10/2024 Pain Disability Index Family/Home Responsibilities: This category includes chores or duties performed around the house (e.g. yard work), errands or favors for other family members (e.g. driving the children to school) 7 7 Recreation: This category includes hobbies, (more content not included)... [facility] Basophil percentageOrdered B y: Clemente Randhawa on 09-03-2023 Bilirubin [Mass/Vol] 0.50 mg/dL 0.20-1.00 [facility] Comment on above: For patients on eltr ombopag therapy, use of Dimension [place] TBIL is not recommended. Chloride [Moles/Vol] 102 mmol/L 98-107 [facility] Cholesterol [Mass/Vol] 213 mg/dL <200 [facility] Comment on above: <200 mg/dL Desirable 200-240 mg/dL Borderline >240 mg/dL High Risk Glucose [Mass/Vol] 214 mg/dL 74-106 [facility] Comment on above: Glucose result great er than or equal to 200 mg/dLsuggests DIABETES MELLITUS per A.D.A. criteria. Hemoglobin (Bld) [Mass/Vol] 14.1 g/dL 12.0-15.0 [facility] Potassium [Moles/Vol] 3.7 mmol/L 3.5-5.1 [facility] Protein [Mass/Vol] 8.1 g/dL 6.4-8.2 [facility] Sodium [Moles/Vol] 138 mmol/L 136-145 [facility] Triglyceride [Mass/Vol] 249 mg/dL <199 [facility] Comment on above: The drugs N-Acetylcy steine and Metamizole may falsely depress this assay.Serum Triglycerides Reference Interval Normal <150 mg/dL Borderline high 150 - 199 mg/dL High 200 - 499 mg/dL Very High > or = 500 mg/dL WBC (Bld) [#/Vol] 7.5 10*3/uL 4.4-11.0 [facility] Determination of erythrocyte mean corpuscular volume (MCV)Ordered By: Clemente Randhawa on 09-03-2023 MCV (RBC) [Entitic vol] 94.2 fL 81-99 [facility] Erythrocyte distribution wid th ratioOrdered By: lCemente Randhawa on 09-03-2023 Erythrocyte distribution width (RBC) [Ratio] 12.5 % 11.6-14.6 [facility] Erythrocyte distribution wid th standard deviationOrdered By: Clemente Randhawa on 09-03-2023 Erythrocyte distribution width (RBC) [Entitic vol] 43.4 fL 35.1-43.9 [facility] Hematocrit Auto (Bld) [Volum e fraction]Ordered By: Clemente Randhawa on 09-03-2023 Hematocrit (Bld) [Volume fraction] 43.9 % 37-47 [facility] - Chemistry and C hemistry - challengeOrdered By: Clemente Randhawa on 09-03-2023 Albumin/Globulin [Mass ratio] 0.9 {ratio} 0.9-2.4 [facility] ALP [Catalytic activity/Vol] 110 U/L 45-117 [facility] ALT [Catalytic activity/Vol] 41 U/L 13-56 [facility] Cholesterol in HDL [Mass/Vol] 35 mg/dL >40 [facility] Comment on above: The drugs N-Acetylcy steine and Metamizole may falsely depress this assay. Reference Range HDL <40 mg/dL Low HDL Cholesterol HDL >or= 60 mg/dL High HDL Cholesterol Cholesterol in LDL [Mass/Vol] 128 mg/dL 0-130 [facility] CO2 [Moles/Vol] 30.0 mmol/L 21.0-32.0 [facility] Cobalamin (Vitamin B12) [Mass/Vol] 318 pg/mL 211-911 [facility] Globulin (S) [Mass/Vol] 4.3 g/dL 2.2-4.2 [facility] Urea nitrogen/Creatinine [Mass ratio] 21.8 mg/mg 10-20 [facility] - Hematology and Cell countsOrdered By: Clemente Randhawa on 09-03-2023 MCH (RBC) [Entitic mass] 30.3 pg 27.0-32.0 [facility] MCHC (RBC) [Mass/Vol] 32.1 g/dL 32-36 [facility] Platelet mean volume (Bld) [Entitic vol] 13.4 fL 6.2-12.0 [facility] Platelets (Bld) [#/Vol] 189 10*3/uL 150-450 [facility] No Panel InformationOrdered By: Clemente Randhawa on 09-03-2023 Estimated GFR (MDRD) Amer 131 mL/min >60 [facility] Comment on above: GFR Calc Estimated GFR (MDRD) Non-Af Amer 108 mL/min >60 [facility] Comment on above: Non- GFR Calc VLDL Cholesterol 50 mg/dL 5-40 [facility] RBC Auto (Bld) [#/Vol]Ordere d By: Clemente Randhawa on 09-03-2023 RBC (Bld) [#/Vol] 4.66 10*6/uL 4.2-5.4 [facility] Serum or plasma calcium abril urement (mass/volume)Ordered By: Clemente Randhawa on 09-03-2023 Calcium [Mass/Vol] 9.0 mg/dL 8.5-10.1 [facility] Serum or plasma creatinine m easurement (mass/volume)Ordered By: Clemente Randhawa on 09-03-2023 Creatinine [Mass/Vol] 0.60 mg/dL 0.55-1.02 [facility] Comment on above: The validity of the calculated GFR & GFRAA in patients over 70 years has not been determined. Clinical correlation is essential. Serum or plasma thyroid stim ulating hormone (TSH) measurement (units/volume)Ordered By: Clemente Randhawa on 09-03-2023 TSH Qn 2.81 uIU/mL 0.358-3.74 [facility] Serum or plasma urea nitroge n measurement (mass/volume)Ordered By: Clemente Randhawa on 09-03-2023 Urea nitrogen [Mass/Vol] 13 mg/dL 7-18 [facility] Thin prep Papanicolaou smear with manual screeningOrdered By: Clemnete Randhawa on 09-03-2023 Thin prep Papanicolaou smear with manual screening 3.8 g/dL 3.2-5.0 [facility] Thin prep Papanicolaou smear with manual screening 48 U/L 15-37 [facility] Thin prep Papanicolaou smear with manual screening 6 5-15 [facility] CNPNon 05-14-2023 CNPN Telephone ([facility]) -- ROSEANNA JONES ([id number]) 1960 F Date Time Provider Department 05/14/23 MARIEL FLORES [facility] During your visit today, we recorded the following information about you: Donn Javed 05/14/2023 2:50 PM Signed Patient verified by name and . She is requesting to have her MRI from 03/25/23 burned onto a disc. Please advise patient when its ready for package pick up. 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 FOR PT Allergies As of Date: 05/14/2023 Noted Allergy Reaction ACETAZOLAMIDE 12/24/2017 14 - Other: See Comments PIOGLITAZONE 02/25/2017 14 - Other: See Comments AMITRIPTYLINE 01/23/2022 14 - Other: See Comments BIAXIN (CLARITHROMYCIN) 03/26/2006 INDOCIN (INDOMETHACIN SODIUM) 03/26/2006 PENICILLINS 03/26/2006 CANAGLIFLOZIN 01/23/2022 14 - Other: See Comments Date Reviewed: 05/14/2023 Reviewed by: Katty Steiner APRN.MACHINE SPECIALIST - Fully Assessed Reason for Visit: Patient Question [5316] Prescriptions as of 10/24/2023 - fentaNYL (DURAGESIC) 25 mcg/hr Apply 1 Patch as directed every 72 hours for 30 days. As directed. Do not start before October 15, 2023. - fentaNYL (DURAGESIC) 25 mcg/hr Apply 1 Patch as directed every 72 hours for 30 days. As directed. Do not start before November 14, 2023. - gabapentin (NEURONTIN) 600 mg tablet Take 1 tablet by mouth three times a day for 60 days. Do not start before October 11, 2023. - meloxicam (MOBIC) 7.5 mg tablet Take 1 tablet by mouth every afternoon. - naloxone 4 mg/actuation nasal spray (NARCAN) Use 1 spray in one nostril as needed for overdose. May repeat every 2 to 3 min in alternating nostrils until medical assistance is available - ibuprofen (MOTRIN) 600 mg tablet TAKE 1 TABLET BY MOUTH THREE TIMES DAILY for 5 days - TRULICITY 1.5 mg/0.5 mL pen injector inject 1 (ONE) pen (1.5mg) SUBCUTANEOUSLY EVERY WEEK - glimepiride (AMARYL) 4 mg tablet Take 4 mg by mouth every morning. - BIPAP - esomeprazole (NEXIUM) 40 mg capsule Take 40 mg by mouth. Problem List As Of Date 05/14/2023 Noted Resolved BENIGN NEOPLASM LG BOWEL [D12.6] 04/25/2006 ABDOMINAL PAIN RUQ [R10.11] 04/25/2006 FUNC DISORDERS INTESTINE NEC [K59.89] 04/25/2006 ACUTE GASTRITIS W/O HEMORRHAGE [K29.00] 04/25/2006 NONORGANIC SLEEP DIS NOS [F51.9] Diverticulitis of colon [K57.32] HYPERLIPIDEMIA NEC/NOS [E78.5] OBSTRUCTIVE SLEEP APNEA, ADULT AND PED [G47.33] HEADACHE [R51] DEPRESSIVE DISORDER NEC [F32.89] Essential hypertension, malignant [I10] 03/20/2016 ESOPHAGEAL REFLUX [K21.9] DISC DEGENERATION NOS [[id number]] ABDOMINAL PAIN GENERALIZED [R10.84] DIARRHEA NOS [R19.7] Abdominal Pain, Epigastric [R10.13] Vomiting [R11.10] 11/15/2009 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] Parkinson disease (HCC) [G20.A1] Essential hypertension [I10] 05/30/2015 Pure hypercholesterolemia [E78.00] 05/30/2015 Obesity [E66.9] 05/30/2015 Tachycardia [R00.0] 05/30/2015 Nausea [R11.0] 06/07/2015 06/07/[address] scan [R93.5] 06/07/2015 06/07/2015 Acromioclavicular joint arthritis [M19.019] 01/12/2015 Carpal tunnel syndrome [G56.00] 01/15/2022 Chronic pain disorder [G89.4] 02/25/2017 Generalized osteoarthritis [M15.9] 02/25/2017 Encounter for long-term (current) use of high-r*05/06/2019 Lumbar radiculopathy [M54.16] 02/25/2017 Lumbar post-laminectomy syndrome [M96.1] 02/25/2017 Cervicalgia [M54.2] 02/26/2018 Osteoarthritis of knee [M17.9] 01/12/2015 Other chronic pain [G89.29] 01/15/2022 Opioid dependence, continuous (HCC) [F11.20] 10/24/2022 Intentional overdose of drug in tablet form (HC*10/24/2022 Disorder of sacroiliac joint [M53.3] 01/15/2022 Foot drop [M21.379] 02/25/2017 Gastroparesis [K31.84] 02/11/2023 Hyperglycemia [R73.9] 02/11/2023 Hypotension [I95.9] 02/11/2023 Iliotibial band syndrome [M76.30] 09/19/2016 Impingement syndrome of shoulder region [M75.40]02/01/2014 Injury of kidney [S37.009A] 02/11/2023 Insomnia [G47.00] 02/11/2023 Mass of breast [N63.0] 02/11/2023 Migraine headache [G43.909] 02/11/2023 Neurological symptoms [R29.90] 02/11/2023 Osteoporosis [M81.0] 03/12/2012 Rheumatoid arthritis (HCC) [M06.9] 02/11/2023 Septic shock (HCC) [A41.9, R65.21] 02/11/2023 Stricture of esophagus [K22.2] 02/11/2023 Tear of medial meniscus of knee [S83.249A] 03/12/2012 Transient ischemic attack [G45.9] 02/11/2023 Vaginal ulcer [N76.5] 02/11/2023 Myofascial pain syndrome [M79.18] 03/14/2023 High risk medication use [Z79.899] 04/04/2023 OPENED IN ERROR 04/06/2023 Encounter Status:Closed by DONN JAVED on 10/24/23 Normal [facility] CRP SerPl-ncon 03-25-2023 CRP [Mass/Vol] 0.5 mg/dL Normal <0.9 [facility] Comment on above: Order Comment: Speci men Type: BLOOD SPECIMEN Ordering Facility: [facility] Address: [address] [place] [address] Performed By: #### 1 988-5, [id number] #### [facility] CLIA [id number] [address] [place] [address] [place] ESR Westergren method (Bld) [Velocity]on 03-25-2023 ESR (Bld) [Velocity] 10 mm/h Normal 0-20 [facility] Comment on above: Order Comment: Speci men Type: BLOOD SPECIMEN Ordering Facility: [facility] Address: [address] [place] [address] Performed By: #### 4 [id number] #### [facility] CLIA [id number] [address] [place], [place] [id number] [place] MRI LUMBAR SPINE WO/W IVCONo n 03-25-2023 MRI LUMBAR SPINE WO/W IVCON * * *Final Report* * * DATE OF EXAM: Mar 25 2023 1:20PM ORAL [id number] - MRI LUMBAR SPINE WO/W IVCON / PROCEDURE REASON: Radiculopathy of lumbar region * * * * Physician Interpretation * * * * EXAMINATION: MRI LUMBAR SPINE WO/W IVCON CLINICAL HISTORY: Radiculopathy of lumbar region TECHNIQUE: Routine lumbosacral spine MR protocol without gadolinium. MQ: [id number] COMPARISON: 03/30/2010 RESULT: Counting reference: Lumbosacral junction. For the purposes of this report, L4-5 is considered the level of the iliac crest and assume there are 5 lumbar-type vertebrae. Anatomic variant: None. Localizer images: Bilateral extrarenal pelves. T2 hyperintense foci involving both kidneys, presumably representing simple cysts. Alignment: Postsurgical straightening of the lumbar lordosis. Minimal retrolisthesis of L2 on L3. Bone marrow signal/fracture: No evidence of pathologic marrow infiltration. No evidence of prior fracture. Postsurgical changes are seen at L5-S1 with interbody fusion and posterior decompressive laminectomies bilaterally. Conus: The conus is within normal limits of signal intensity and morphology. Conus terminates at lower margin of L1. Paraspinal soft tissues: There is paraspinal intramuscular fatty infiltration. Lower thoracic spine: Visualized lower thoracic canal and foramina are patent. L1-L2: Mild posterolateral disc bulge results in mild bilateral neural foraminal stenosis. No significant thecal sac stenosis. L2-L3: Disc desiccation with loss of intranuclear T2 signal and disc height with broad-based posterolateral disc bulge with tiny central annular fissure, along with moderate facet joint arthrosis, results in mild left lateral recess and mild to moderate left neural foraminal stenosis. Mild right neural foraminal stenosis. No significant thecal sac stenosis. L3-L4: Disc desiccation. No significant spinal stenosis. L4-L5: Disc desiccation. Posterolateral disc bulge, along with ligamenta flava hypertrophy and facet joint arthrosis, results in mild left lateral recess stenosis. Moderate left and mild right neural foraminal stenosis. No significant thecal sac stenosis. L5-S1: No osseous central canal stenosis. No significant thecal sac or neural foraminal stenosis. Clumping of the nerve roots starting at L5 and extending to the exit of various neural foramina with empty sac appearance, suggestive of arachnoiditis. Sacrum and iliac wings: Mild bilateral sacroiliac joint arthritic changes. IMPRESSION: Stable examination. Postoperative changes status post L5-S1 interbody fixation and posterior decompression. Discogenic degenerative changes, most prominent at L2-L3 and L4-L5, resulting in moderate left lateral recess and neural foraminal stenosis, as described in detail above. 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 Anatomic Lumbar Variant: Legislative Aide: MADELIN Transcribe Date/Time: Mar 25 2023 2:13P Dictated by : LAN ATWOOD MD This examination was interpreted and the report reviewed and electronically signed by: LAN ATWOOD MD on Mar 25 2023 2:47PM EST [id number] Normal [facility] Rheumatoid fact SerPl-aCncon 03-25-2023 Rheumatoid factor Qn [IU]/mL Normal <16 [facility] Comment on above: Order Comment: Speci men Type: BLOOD SPECIMEN Ordering Facility: [facility] Address: [address] [place] [address] Performed By: #### 1 988-5, [id number] #### [facility] CLIA [id number] [facility] [place] [address] [place] Basophil percentageon 2021 WBC (Bld) [#/Vol] 10.5 10*3/uL 4.4-11.0 [facility] Work Phone: Blood erythrocytes count (nu mber/volume)on 11-19-2021 RBC (Bld) [#/Vol] 4.93 10*6/uL 4.2-5.4 [facility] Work Phone: Blood hemoglobin measurement (mass/volume)on 11-19-2021 Hemoglobin (Bld) [Mass/Vol] 15.2 g/dL 12.0-15.0 [facility] Work Phone: Blood platelet mean volumeon 11-19-2021 Platelet mean volume (Bld) [Entitic vol] 12.0 fL 6.2-12.0 [facility] Work Phone: Determination of erythrocyte mean corpuscular volume (MCV)on 11-19-2021 MCV (RBC) [Entitic vol] 93.7 fL 81-99 [facility] Work Phone: Erythrocyte sedimentation ra anita 11-19-2021 ESR (Bld) [Velocity] 12 mm/h 0-30 [facility] Work Phone: Hematocrit Auto (Bld) [Volum e fraction]on 11-19-2021 Hematocrit (Bld) [Volume fraction] 46.2 % 37-47 [facility] Work Phone: Iron measurement (mass/mass) on 11-19-2021 Iron (Unsp spec) [Mass/Mass] 89 ug/dL 50-170 [facility] Work Phone: Laboratory - Chemistry and C hemistry - challengeon 11-19-2021 Magnesium [Mass/Vol] 1.7 mg/dL 1.6-2.6 [facility] Work Phone: Laboratory - Hematology and Cell countson 11-19-2021 Erythrocyte distribution width (RBC) [Entitic vol] 43.0 fL 35.1-43.9 [facility] Work Phone: Erythrocyte distribution width (RBC) [Ratio] 12.5 % 11.6-14.6 [facility] Work Phone: MCH (RBC) [Entitic mass] 30.8 pg 27.0-32.0 [facility] Work Phone: MCHC Auto (RBC) [Mass/Vol]on 11-19-2021 MCHC (RBC) [Mass/Vol] 32.9 g/dL 32-36 [facility] Work Phone: No Panel Informationon 11-19 Thyroid Stimulating Hormone (TSH) 0.92 uIU/mL 0.358-3.74 [facility] Work Phone: Vitamin D 25-Hydroxy 31.2 ng/mL [facility] Work Phone: Comment on above: Vitamin D 25(OH) Sta tus Range Deficiency <20 ng/mL (50nmol/L) Insufficiency 20 - 30 ng/mL (50 - 75 nmol/L) Sufficiency 30 - 100 ng/mL (75 - 250 nmol/L) Toxicity >100 ng/mL (>250 nmol/L) Platelets bldon 11-19-2021 Platelets (Bld) [#/Vol] 249 10*3/uL 150-450 [facility] Work Phone: Serum or plasma ferritin maryan surement (mass/volume)on 11-19-2021 Ferritin [Mass/Vol] 59 ng/mL 8-252 [facility] Work Phone: Gram stain for investigation of transfusion reactionon 09-05-2021 Microscopic observation Gram stain Nom (Unsp spec) [facility] Work Phone: Thin prep Papanicolaou smear with manual screeningon 09-05-2021 Genital Culture GNR 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 Source of clonazepam is a scheduled prescription medication. Morphine 3470 ng/mg creat Normorphine 34 ng/mg creat Potential sources of large amounts of morphine in the absence of codeine include administration of morphine or use of heroin. Normorphine is an expected metabolite of morphine. Oxycodone 210 ng/mg creat Noroxycodone 243 ng/mg creat Sources of oxycodone include scheduled prescription medications. Noroxycodone is an expected metabolite of oxycodone. Gabapentin PRESENT Tizanidine PRESENT Citalopram PRESENT Desmethylcitalopram PRESENT Desmethylcitalopram is an expected metabolite of citalopram or the enantiomeric form, escitalopram. Ibuprofen PRESENT Naproxen PRESENT Diphenhydramine PRESENT Dextromethorphan PRESENT Dextrorphan/Levorphanol PRESENT Dextrorphan is an expected metabolite of dextromethorphan, an spcv-dol-ysxahon or prescription cough suppressant. Dextrorphan cannot be distinguished from the scheduled prescription medication levorphanol by the method used for analysis. ==== Test Result Flag Units Ref Range Creatinine 166 mg/dL >=20 ==== Declared Medications: Medication list was not provided. ==== For clinical consultation, please call . ==== Performed At: [employer] [address] [place] [id number] [facility] [id number] Performed By: #### L 600.26931 #### [facility] [address] [place] [address] # [phone] SPEon 02-24-2018 SPE Interpretation The beta fraction is increased. Complement, transferrin and Normal [facility] ([place]) Comment on above: Result Comment: Elec tronically Signed by: DEZ HERNANDEZ MD02/24/2018 16:50 EDT Performed By: #### T SH, GLU, FOL, ESR, B12, CARLOS, HCV1, RF, SPE ####[place] [address]#### HIVRP, ENA1 ####[address] [place], [place] [address] Albumin mass conc 3.1 G/dL Low 3.3-5.0 [facility] ([place] Comment on above: Performed By: #### T SH, GLU, FOL, ESR, B12, CARLOS, HCV1, RF, SPE ####[place] [address]#### HIVRP, ENA1 ####[address] [place], [place] [address] Alpha 1 0.2 G/dL Normal 0.1-0.4 [facility] ([place] Comment on above: Performed By: #### T SH, GLU, FOL, ESR, B12, CARLOS, HCV1, RF, SPE ####[place] [address]#### HIVRP, ENA1 ####[address] [place], [place] [address] Alpha 2 0.9 G/dL Normal 0.6-1.2 [facility] ([place] Comment on above: Performed By: #### T SH, GLU, FOL, ESR, B12, CARLOS, HCV1, RF, SPE ####[place] [address]#### HIVRP, ENA1 ####[address] [place] [address] Beta 1.5 G/dL High 0.6-1.3 [facility] ([place] Comment on above: Performed By: #### T SH, GLU, FOL, ESR, B12, CARLOS, HCV1, RF, SPE ####[place] [address]#### HIVRP, ENA1 ####[place] [address] [place] [address] Gamma 1.6 G/dL Normal 0.7-1.6 [facility] ([place] Comment on above: Performed By: #### T SH, GLU, FOL, ESR, B12, CARLOS, HCV1, RF, SPE ####[place] [address]#### HIVRP, ENA1 ####[place] [address] [place] [address] RFon 02-22-2018 Rheumatoid Factor <6.0 Normal [facility] ([place] Comment on above: Result Comment: RF I gM Antibody by Enzyme Immunoassay: Negative < or = 6 Positive > 6A positive result indicates the presence of RF antibodiesand suggests the possibility of rheumatoid arthritis.A negative result indicates no RF IgM antibody or levelsbelow the negative cut-off of the assay.Results of this assay should be used in conjunction with clinical findings and other serological tests.These results were obtained with the [employer] QUANTA Lite RF IgM DAVY. RF IgM values obtained with different manufacturers' assay methods may not be used interchangeably.The magnitude of the reported IgM levels cannot be correlated to an endpoint titer. Performed By: #### T SH, GLU, FOL, ESR, B12, CARLOS, HCV1, RF, SPE ####[place] [address]#### HIVRP, ENA1 ####[address] [place] [id number] ANAon 02-20-2018 Nuclear Ab IF titer (S) 40 {titer} Normal Neg 40 [facility] ([place] Comment on above: Performed By: #### T SH, GLU, FOL, ESR, B12, CARLOS, HCV1, RF, SPE ####[place] [address]#### HIVRP, ENA1 ####[place] [address] [place], [place] [address] B12on 02-20-2018 Cobalamin (Vitamin B12) mass conc 828 pg/mL Normal 211-911 [facility] ([place] Comment on above: Performed By: #### T SH, GLU, FOL, ESR, B12, CARLOS, HCV1, RF, SPE ####[place] [address]#### HIVRP, ENA1 ####[facility] [place] [id number] ENA1on 02-20-2018 Centromere <0.2 Normal <1.0 [facility] ([place] Comment on above: Result Comment: Nega tiveNegative: <1.0 AIPositive: >0.9 AIPerformed By:[address] Director: Evelin Huerta M.D.CLIA#: [id number]#: Performed By: #### T SH, GLU, FOL, ESR, B12, CARLOS, HCV1, RF, SPE ####[place] [address]#### HIVRP, ENA1 ####[place] [address] [place], [place] [address] Chromatin Antibody <0.2 Normal <1.0 [facility] ([place]) Comment on above: Result Comment: Nega tiveNegative: <1.0 AIPositive: >0.9 AIPerformed By:[address] [address]Cfl Director: Evelin Huerta M.D.CLIA#: [id number]#: Performed By: #### T SH, GLU, FOL, ESR, B12, CARLOS, HCV1, RF, SPE ####[address] [address]#### HIVRP, ENA1 ####[place] [address] [place], [place] [address] MATTHEW-1 Ab <0.2 Normal <1.0 [facility] ([place] Comment on above: Result Comment: Nega tiveNegative: <1.0 AIPositive: >0.9 AIPerformed By:[address] Director: JENNIFER GuerreroIA#: [id number]#: Performed By: #### T SH, GLU, FOL, ESR, B12, CARLOS, HCV1, RF, SPE ####[place] [address]#### HIVRP, ENA1 ####[address] [place], [place] [address] Ribosomal HIDE BUYER <0.2 Normal <1.0 [facility] ([place] Comment on above: Result Comment: Nega tiveNegative: <1.0 AIPositive: >0.9 AIPerformed By:[address] [id number] Director: Evelin Huerta M.D.CLIA#: [id number]#: Performed By: #### T SH, GLU, FOL, ESR, B12, CARLOS, HCV1, RF, SPE ####[address] [address]#### HIVRP, ENA1 ####[facility] [place], [place] [address] HIDE BUYER Antibody 1.1 AI High <1.0 [facility] ([place] Comment on above: Result Comment: Posi tiveNegative: <1.0 AIPositive: >0.9 AIPerformed By:[address] [id number] Director: JENNIFER GuerreroIA#: [id number]#: Performed By: #### T SH, GLU, FOL, ESR, B12, CARLOS, HCV1, RF, SPE ####[place] [address]#### HIVRP, ENA1 ####[address] [place], [place] [address] Scleroderma IgG Ab <0.2 Normal <1.0 [facility] ([place] Comment on above: Result Comment: Nega tiveNegative: <1.0 AIPositive: >0.9 AIPerformed By:[address] [address]Uoi Director: JOSEE Guerrero#: [id number]#: Performed By: #### T SH, GLU, FOL, ESR, B12, CARLOS, HCV1, RF, SPE ####[place] [address]#### HIVRP, ENA1 ####[address] [place], [place] [address] Sm Antibody <0.2 Normal <1.0 [facility] ([place] Comment on above: Result Comment: Nega tiveNegative: <1.0 AIPositive: >0.9 AIPerformed By:[address] [address]Nzp Director: JOSEE Guerrero#: [id number]#: Performed By: #### T SH, GLU, FOL, ESR, B12, CARLOS, HCV1, RF, SPE ####[place] [address]#### HIVRP, ENA1 ####[address] [place] [address] SS-A Ab <0.2 Normal <1.0 [facility] ([place] Comment on above: Result Comment: Nega tiveNegative: <1.0 AIPositive: >0.9 AIPerformed By:[address] [id number] Director: JENNIFER GuerreroIA#: [id number]#: Performed By: #### T SH, GLU, FOL, ESR, B12, CARLOS, HCV1, RF, SPE ####[place] [address]#### HIVRP, ENA1 ####[place] [address] SS-B Ab <0.2 Normal <1.0 [facility] ([place] Comment on above: Result Comment: Nega tiveNegative: <1.0 AIPositive: >0.9 AIPerformed By:[address] [address]Omm Director: Evelin Huerta M.D.CLIA#: [id number]#: Performed By: #### T SH, GLU, FOL, ESR, B12, CARLOS, HCV1, RF, SPE ####[place] [address]#### HIVRP, ENA1 ####[place] [address] [place] [address] ESRon 02-20-2018 Erythrocyte Sed Rate 8 mm/hr Normal 0-30 [facility] ([place]) Comment on above: Performed By: #### T SH, GLU, FOL, ESR, B12, CARLOS, HCV1, RF, SPE ####[place] [address]#### HIVRP, ENA1 ####[place] [address] [place] [address] HCVon 02-20-2018 Hep C Ab Negative Normal Negative [facility] ([place] Comment on above: Performed By: #### T SH, GLU, FOL, ESR, B12, CARLOS, HCV1, RF, SPE ####[place] [address]#### HIVRP, ENA1 ####[place] [address] [place] [address] Hep C Ab Int No serological evide nce of Hepatitis C infection, although levels of anti-HCV may be undetectable in early infection. Normal [facility] ([place] Comment on above: Performed By: #### T SH, GLU, FOL, ESR, B12, CARLOS, HCV1, RF, SPE ####[place] [address]#### HIVRP, ENA1 ####[place] [address] FOLon 02-19-2018 Folate 29.9 ng/mL High 1.1-20.0 [facility] ([place] Comment on above: Performed By: #### T SH, GLU, FOL, ESR, B12, CARLOS, HCV1, RF, SPE ####[place] [address]#### HIVRP, ENA1 ####[place] [address] GLUon 02-19-2018 Glucose mass conc 239 mg/dL High 70-105 [facility] ([place] Comment on above: Order Comment: 2hr G TT, after 75 mg of glucola Performed By: #### T SH, GLU, FOL, ESR, B12, CARLOS, HCV1, RF, SPE ####[place] [address]#### HIVRP, ENA1 ####[facility] [place] [address] Glucose mass conc 108 mg/dL High 70-105 [facility] ([place] Comment on above: Performed By: #### T SH, GLU, FOL, ESR, B12, CARLOS, HCV1, RF, SPE ####[place] [address]#### HIVRP, ENA1 ####[facility] [place] [address] HIVRPon 02-19-2018 HIV p24 Antigen Non-Reactive Normal Non-Reacti ve [facility] ([place] Comment on above: Performed By: #### T SH, GLU, FOL, ESR, B12, CARLOS, HCV1, RF, SPE ####[place] [address]#### HIVRP, ENA1 ####[place] [address] [place] [address] HIV P24 Int Non-reactive Invalid Interpretation Code [facility] ([place] Comment on above: Performed By: #### T SH, GLU, FOL, ESR, B12, CARLOS, HCV1, RF, SPE ####[place] [address]#### HIVRP, ENA1 ####[place] [address] [place] [address] QC RHIV Valid Normal [facility] ([place] Comment on above: Performed By: #### T SH, GLU, FOL, ESR, B12, CARLOS, HCV1, RF, SPE ####[place] [address]#### HIVRP, ENA1 ####[place] [address] [place] [address] Rapid HIV 1/2 Antibody Non-Reactive Normal Non-Reacti ve [facility] ([place] Comment on above: Performed By: #### T SH, GLU, FOL, ESR, B12, CARLOS, HCV1, RF, SPE ####[place] [address]#### HIVRP, ENA1 ####[place] [address] [place] [address] RHIV 1/2 Ab Int Non-Reactive Invalid Interpretation Code [facility] ([place] Comment on above: Performed By: #### T SH, GLU, FOL, ESR, B12, CARLOS, HCV1, RF, SPE ####[place] [address]#### HIVRP, ENA1 ####[facility] [place], [place] [address] SPEon 02-19-2018 Protein mass conc 7.3 G/dL Normal 6.0-8.5 [facility] ([place] Comment on above: Performed By: #### T SH, GLU, FOL, ESR, B12, CARLOS, HCV1, RF, SPE ####[place] [address]#### HIVRP, ENA1 ####[address] [place], [place] [address] TSHon 02-19-2018 Thyrotropin Qn 2.07 mcIU/mL Normal 0.36-3.74 [facility] ([place] Comment on above: Performed By: #### T SH, GLU, FOL, ESR, B12, CARLOS, HCV1, RF, SPE ####[place] [address]#### HIVRP, ENA1 ####[address] [place], [place] [address] Office Visiton 02-18-2017 Tobacco use status [facility] Never smoker Invalid Interpretation Code [facility] Work Phone: Lab Report: Bedside Glucoseo n 02-05-2017 Glucose [Mass/Vol] 254 mg/dL High 70-110 [facility] Work Phone: Office Visiton 01-23-2017 Tobacco use status [facility] Never smoker Invalid Interpretation Code [facility] Work Phone: Office Visiton 01-09-2017 Tobacco use status [facility] Never smoker Invalid Interpretation Code [facility] Work Phone: Office Visit: Left hip paino n 09-19-2016 Tobacco use status [facility] Never smoker Invalid Interpretation Code [facility] Work Phone: Gram stain for investigation of transfusion reaction Microscopic observation Gram stain Nom (Unsp spec) [facility] Work Phone: Thin prep Papanicolaou smear with manual screening Genital Culture GNR 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 Reed Vazquez MD Work Phone: [facility] 10-06-2024 15:40-0400 Diastolic blood pressure 65 mm[Hg] Dr. Reed Vazquez MD Work Phone: [facility] 10-06-2024 15:40-0400 Heart rate 80 /min Dr. Reed Vazquez MD Work Phone: [facility] 10-06-2024 15:40-0400 Respiratory rate 16 /min Dr. Reed Vazquez MD Work Phone: [facility] 10-06-2024 15:40-0400 SaO2% (BldA) [Mass fraction] 92 % Dr. Reed Vazquez MD Work Phone: [facility] 10-06-2024 15:40-0400 Systolic blood pressure 102 mm[Hg] Dr. Reed Vazquez MD Work Phone: [facility] 10-06-2024 14:27-0400 Body height 170.[address] Reed Vazquez MD Work Phone: [facility] 10-06-2024 14:27-0400 Body mass index (BMI) [Ratio] 30.6 kg/m2 Dr. Reed Vazquez MD Work Phone: [facility] 10-06-2024 14:27-0400 Body weight 88.[address] Reed Vazquez MD Work Phone: [facility] 09-09-2024 13:38-0400 Diastolic blood pressure 77 mm[Hg] Katty Steiner STAFF CYTOTECHNOLOGIST.MACHINE SPECIALIST Work Phone: [facility] 09-09-2024 13:38-0400 Heart rate 79 /min Katty Steiner STAFF CYTOTECHNOLOGIST.MACHINE SPECIALIST Work Phone: [facility] 09-09-2024 13:38-0400 Respiratory rate 16 /min Katty Steiner STAFF CYTOTECHNOLOGIST.MACHINE SPECIALIST Work Phone: [facility] 09-09-2024 13:38-0400 SaO2% (BldA) [Mass fraction] 97 % Katty Steiner STAFF CYTOTECHNOLOGIST.MACHINE SPECIALIST Work Phone: [facility] 09-09-2024 13:38-0400 Systolic blood pressure 137 mm[Hg] Katty Steiner STAFF CYTOTECHNOLOGIST.MACHINE SPECIALIST Work Phone: [facility] 09-09-2024 13:30-0400 Body mass index (BMI) [Ratio] 29.63 kg/m2 Katty Steiner STAFF CYTOTECHNOLOGIST.MACHINE SPECIALIST Work Phone: [facility] 09-09-2024 13:30-0400 Body weight 89.45 kg Katty Steiner STAFF CYTOTECHNOLOGIST.MACHINE SPECIALIST Work Phone: [facility] 04-13-2024 13:51-0400 Body mass index (BMI) [Ratio] 28.55 kg/m2 Katty Steiner STAFF CYTOTECHNOLOGIST.MACHINE SPECIALIST Work Phone: [facility] 04-13-2024 13:51-0400 Body weight 86.18 kg Katty Steiner STAFF CYTOTECHNOLOGIST.MACHINE SPECIALIST Work Phone: [facility] 04-13-2024 13:51-0400 Diastolic blood pressure 82 mm[Hg] Katty Steiner STAFF CYTOTECHNOLOGIST.MACHINE SPECIALIST Work Phone: [facility] 04-13-2024 13:51-0400 Heart rate 82 /min Katty Steiner STAFF CYTOTECHNOLOGIST.MACHINE SPECIALIST Work Phone: [facility] 04-13-2024 13:51-0400 SaO2% (BldA) [Mass fraction] 94 % Katty Steiner STAFF CYTOTECHNOLOGIST.MACHINE SPECIALIST Work Phone: [facility] 04-13-2024 13:51-0400 Systolic blood pressure 124 mm[Hg] Katty Steiner STAFF CYTOTECHNOLOGIST.MACHINE SPECIALIST Work Phone: [facility] 11-20-2023 08:54-0400 Body mass index (BMI) [Ratio] 32.1 kg/m2 Katty Steiner STAFF CYTOTECHNOLOGIST.MACHINE SPECIALIST Work Phone: [facility] 11-20-2023 08:54-0400 Body weight 96.89 kg Katty Steiner STAFF CYTOTECHNOLOGIST.MACHINE SPECIALIST Work Phone: [facility] 11-20-2023 08:54-0400 Diastolic blood pressure 67 mm[Hg] Katty Steiner STAFF CYTOTECHNOLOGIST.MACHINE SPECIALIST Work Phone: [facility] 11-20-2023 08:54-0400 Heart rate 84 /min Katty Steiner STAFF CYTOTECHNOLOGIST.MACHINE SPECIALIST Work Phone: [facility] 11-20-2023 08:54-0400 Respiratory rate 16 /min Katty Steiner STAFF CYTOTECHNOLOGIST.MACHINE SPECIALIST Work Phone: [facility] 11-20-2023 08:54-0400 SaO2% (BldA) [Mass fraction] 96 % Katty Steiner STAFF CYTOTECHNOLOGIST.MACHINE SPECIALIST Work Phone: [facility] 11-20-2023 08:54-0400 Systolic blood pressure 113 mm[Hg] Katty Steiner STAFF CYTOTECHNOLOGIST.MACHINE SPECIALIST Work Phone: [facility] 02-11-2023 11:00-0400 Body height 173.7 cm Joyce Marley DO Work Phone: [facility] 02-11-2023 11:00-0400 Body weight 94.35 kg Joyce Marley DO Work Phone: [facility] 02-11-2023 11:00-0400 Diastolic blood pressure 101 mm[Hg] Joyce Marley DO Work Phone: [facility] 02-11-2023 11:00-0400 Heart rate 88 /min Joyce Marley DO Work Phone: [facility] 02-11-2023 11:00-0400 Respiratory rate 19 /min Joyce Marley DO Work Phone: [facility] 02-11-2023 11:00-0400 SaO2% (BldA) [Mass fraction] 96 % Joyce Marley DO Work Phone: [facility] 02-11-2023 11:00-0400 Systolic blood pressure 160 mm[Hg] Joyce Marley DO Work Phone: [facility] 12-25-2021 09:56-0400 Body height 170.[address] Clemente Randhawa Work Phone: [facility] Work Phone: 12-25-2021 09:56-0400 Body mass index (BMI) [Ratio] 31.3 kg/m2 Dr. Clemente Randhawa Work Phone: [facility] Work Phone: 12-25-2021 09:56-0400 Body weight 90.[address] Clemente Randhawa Work Phone: [facility] Work Phone: 12-25-2021 09:56-0400 Diastolic blood pressure 82 mm[Hg] Dr. Clemente Randhawa Work Phone: [facility] Work Phone: 12-25-2021 09:56-0400 Respiratory rate 18 /min Dr. Clemente Randhawa Work Phone: [facility] Work Phone: 12-25-2021 09:56-0400 Systolic blood pressure 118 mm[Hg] Dr. Clemente Randhawa Work Phone: [facility] Work Phone: 04-16-2012 13:26-0400 Body weight 80.74 kg Evelyn Azevedo Work Phone: [facility] Work Phone: 04-16-2012 13:26-0400 Diastolic blood pressure 84 mm[Hg] Evelyn Azevedo Work Phone: [facility] Work Phone: 04-16-2012 13:26-0400 Heart rate 82 /min Evelyn Azevedo Work Phone: [facility] Work Phone: 04-16-2012 13:26-0400 Systolic blood pressure 122 mm[Hg] Evelyn Azevedo Work Phone: [facility] Work Phone: 10-03-2011 14:30-0400 Body height 170.18 cm Evelyn Azevedo Work Phone: [facility] Work Phone: Encounters Encounter Date Encounter Type Care Provider Facility Start: 12-01-2024 ambulatory [facility] ty:[facility] Start: 11-25-2024 End: 11-25-2024 Telemedicine consultation with patient Katty Steiner APRNNOBLE Work Phone: [facility] [employer] Start: 11-25-2024 End: 11-25-2024 ambulatory Katty Steiner STAFF CYTOTECHNOLOGISTNOBLE Work Phone: [facility] [place] Comment on above: Encounter for long-t erm opiate analgesic use (Primary Dx); Myofascial pain syndrome; Opioid dependence, continuous (HCC); Chronic cervical pain; Encounter for long-term (current) use of medications; Postlaminectomy syndrome, lumbar region; Cervicalgia; High risk medication use; Encounter for long-term (current) use of high-risk medication; Lumbar radiculopathy; Chronic pain syndrome Start: 10-25-2024 End: 10-25-2024 ambulatory [facility] Facility:[facility] Start: 10-19-2024 End: 10-19-2024 ambulatory [facility] Facility:[facility] Start: 10-06-2024 Non-patient / Non-visit Polo Guan nd DO -[facility] Start: 10-06-2024 End: 10-06-2024 Admission to same day surgery center Polo Mac DO -Endoscopy Work Phone: Start: 10-06-2024 End: 10-06-[address] Reed Vazquez MD Work Phone: [facility] Work Phone: Start: 09-14-2024 End: 11-14-2024 Follow-up encounter Katty E Steiner STAFF CYTOTECHNOLOGIST.MACHINE SPECIALIST Work Phone: [facility] [place] Start: 09-09-2024 End: 09-09-2024 Subsequent hospital visit by physician Xr [facility] [place] RADIO GEN [facility] Comment on above: Chronic cervical tiffanie n [M54.2, G89.29] Start: 09-09-2024 End: 09-09-2024 Patient encounter procedure Katty Heart Steiner STAFF CYTOTECHNOLOGIST.MACHINE SPECIALIST Work Phone: Pain [facility] [place] Comment on above: Encounter for long-t erm opiate analgesic use (Primary Dx); Chronic cervical pain; Myofascial pain syndrome; Encounter for long-term (current) use of medications; Chronic pain syndrome Start: 09-09-2024 End: 09-09-2024 ambulatory KATTY STEINER Facility:[id number] Start: 08-11-2024 End: 08-11-2024 Patient encounter procedure Maude Taylor [facility] Work Phone: Start: 08-11-2024 End: 08-11-2024 ambulatory Maude Taylor Facility:[facility] Start: 07-15-2024 End: 07-15-[address] Reed Vazquez MD -Laboratory, [facility] Start: 07-15-2024 End: 07-15-2024 ambulatory Reed Vazquez Facility:[facility] Start: 07-13-2024 End: 07-13-2024 Telemedicine consultation with patient Katty Heart Steiner STAFF CYTOTECHNOLOGIST.MACHINE SPECIALIST Work Phone: Pain [facility] [place] Start: 07-13-2024 End: 07-13-2024 ambulatory Katty Heart Steiner STAFF CYTOTECHNOLOGIST.MACHINE SPECIALIST Work Phone: Pain [facility] [place] Comment on above: Myofascial pain synd charles (Primary Dx); High risk medication use; Opioid dependence, continuous (HCC); Encounter for long-term (current) use of medications; Postlaminectomy syndrome, lumbar region; Encounter for long-term (current) use of high-risk medication; Encounter for long-term opiate analgesic use; Cervicalgia; Lumbar radiculopathy; Chronic pain syndrome Start: 07-12-2024 ambulatory Reed Vazquez Facility:[facility] Start: 07-09-2024 End: 07-13-2024 ambulatory Katty Steiner STAFF CYTOTECHNOLOGIST.MACHINE SPECIALIST Work Phone: Pain [facility] [place] Comment on above: so[facility] Start: 07-09-2024 End: 07-13-2024 E-mail encounter from caregiver Katty Steiner STAFF CYTOTECHNOLOGIST.MACHINE SPECIALIST Work Phone: Pain [facility] [place] Start: 07-08-2024 End: 07-08-[address] Reed Vazquez MD -Laboratory, [place] Work Phone: Start: 07-08-2024 End: 07-08-2024 [facility] Reed Vazquez Facility:[facility] Start: 04-13-2024 End: 04-13-2024 Patient encounter procedure Katty Steiner STAFF CYTOTECHNOLOGIST.MACHINE SPECIALIST Work Phone: Pain [facility] [place] Comment on above: Myofascial pain synd charles (Primary Dx); Encounter for long-term (current) use of medications; Encounter for long-term opiate analgesic use; High risk medication use; Postlaminectomy syndrome, lumbar region; Cervicalgia; Opioid dependence, continuous (HCC); Encounter for long-term (current) use of high-risk medication; Lumbar radiculopathy; Chronic pain syndrome Start: 04-13-2024 End: 04-13-2024 ambulatory KATTY STEINER Facility:[id number] Start: 02-10-2024 End: 02-10-2024 Telemedicine consultation with patient Katty Steiner STAFF CYTOTECHNOLOGIST.MACHINE SPECIALIST Work Phone: Pain [facility] [place] Start: 02-10-2024 End: 02-10-2024 ambulatory Katty Steiner STAFF CYTOTECHNOLOGIST.MACHINE SPECIALIST Work Phone: Pain [facility] [place] Comment on above: Myofascial pain synd charles (Primary Dx); High risk medication use; Opioid dependence, continuous (HCC); Encounter for long-term (current) use of medications; Postlaminectomy syndrome, lumbar region; Encounter for long-term (current) use of high-risk medication; Encounter for long-term opiate analgesic use; Cervicalgia; Lumbar radiculopathy; Chronic pain syndrome Start: 01-19-2024 Refill Katty Steiner APRN.[facility] Work Phone: [facility] [place] Comment on above: Refill Request Start: 11-20-2023 End: 11-20-2023 Patient encounter procedure Katty Steiner APRN.MACHINE SPECIALIST Work Phone: Pain [facility] [place] Comment on above: High risk medication use (Primary Dx); Encounter for long-term (current) use of medications; Opioid dependence, continuous (HCC); Postlaminectomy syndrome, lumbar region; Lumbar radiculopathy; Encounter for long-term (current) use of high-risk medication; Myofascial pain syndrome; Obesity, Class I, BMI 30-34.9; Chronic pain syndrome; Encounter for long-term opiate analgesic use Start: 10-16-2023 Telephone encounter Katty orta APRN.[facility] Work Phone: [facility] [place] Start: 10-09-2023 Telephone encounter Katty orta APRN.[facility] Work Phone: [facility] [place] Comment on above: virtual visit [facility] Appointment Appointment Start: 10-09-2023 End: 10-09-2023 ambulatory Katty Steiner APRN.[facility] Work Phone: [facility] [place] Comment on above: High risk medication use (Primary Dx); Opioid dependence, continuous (HCC); Myofascial pain syndrome; Encounter for long-term (current) use of medications; Postlaminectomy syndrome, lumbar region; Encounter for long-term (current) use of high-risk medication; Obesity, Class I, BMI 30-34.9; Cervicalgia; Lumbar radiculopathy; Chronic pain syndrome Start: 10-09-2023 End: 10-09-2023 Telemedicine consultation with patient Katty Steiner APRN.[facility] Work Phone: [facility] [place] Start: 10-08-2023 Telephone encounter Katty orta APRN.MACHINE SPECIALIST Work Phone: [facility] [place] Start: 09-18-2023 Telephone encounter Katty orta APRN.MACHINE SPECIALIST Work Phone: [facility] [place] Start: 09-03-2023 End: 09-03-2023 ambulatory [facility] Work Phone: Start: 09-03-2023 End: 09-03-2023 Patient encounter procedure [facility]-Radiology, [place] Work Phone: Start: 08-22-2023 Telephone encounter Katty orta APRN.MACHINE SPECIALIST Work Phone: [facility] [place] Start: 08-14-2023 End: 08-14-2023 ambulatory Katty Steiner STAFF CYTOTECHNOLOGIST.MACHINE SPECIALIST Work Phone: [facility] [place] Comment on above: High risk medication use (Primary Dx); Opioid dependence, continuous (HCC); Obesity, Class I, BMI 30-34.9; Myofascial pain syndrome; Encounter for long-term (current) use of medications; Postlaminectomy syndrome, lumbar region; Lumbar radiculopathy; Encounter for long-term (current) use of high-risk medication; Chronic pain syndrome Start: 08-14-2023 End: 08-14-2023 Telemedicine consultation with patient Katty Steiner APRN.MACHINE SPECIALIST Work Phone: [facility] Start: 08-14-2023 Telephone encounter Katty orta STAFF CYTOTECHNOLOGIST.MACHINE SPECIALIST Work Phone: [facility] [place] Comment on above: virtual visit precha rting Future Appointment Start: 07-18-2023 Telephone encounter Katty orta APRN.MACHINE SPECIALIST Work Phone: [facility] [place] Start: 07-06-2023 Telephone encounter Katty orta APRN.MACHINE SPECIALIST Work Phone: [facility] [place] Comment on above: Orders Start: 06-05-2023 Telephone encounter Katty orta APRN.MACHINE SPECIALIST Work Phone: [facility] [place] Comment on above: Appointment Start: 06-05-2023 End: 06-05-2023 ambulatory Katty Steiner APRN.[facility] Work Phone: Pain [facility] [place] Comment on above: Encounter for long-t erm (current) use of medications (Primary Dx); Myofascial pain syndrome; High risk medication use; Postlaminectomy syndrome, lumbar region; Cervicalgia; Lumbar radiculopathy; Encounter for long-term (current) use of high-risk medication; Lumbar post-laminectomy syndrome; Chronic pain syndrome Start: 06-05-2023 End: 06-05-2023 Telemedicine consultation with patient Katty Heart Jatin PEÑA.QUINCY Work Phone: [facility] Start: 05-14-2023 End: 05-14-2023 ambulatory Katty Heart Jatin PEÑA.QUINCY Work Phone: [facility] [place] Comment on above: Encounter for long-t erm (current) use of medications (Primary Dx); Myofascial pain syndrome; High risk medication use; Postlaminectomy syndrome, lumbar region; Cervicalgia; Lumbar radiculopathy; Encounter for long-term (current) use of high-risk medication; Lumbar post-laminectomy syndrome; Chronic pain syndrome Start: 05-14-2023 End: 05-14-2023 Telemedicine consultation with patient Katty Heart Jatin PEÑA.QUINCY Work Phone: [facility] Start: 05-14-2023 Telephone encounter Katty orta APRN.[facility] Work Phone: Pain [facility] [place] Comment on above: virtual visit precha rting [facility] - O ther follow up on referra l Future Appointment Patient Question Start: 04-16-2023 Telephone encounter Katty orta APRN.[facility] Work Phone: Pain [facility] [place] Start: 04-09-2023 ambulatory ANNALISE CHASEGRAFF Facility:[facility] Start: 04-09-2023 Telephone encounter Katty orta APRN.[facility] Work Phone: Pain [facility] [place] Comment on above: rheum order faxed Orders (Referral fax ed to dr goncalves//) Start: 04-07-2023 Patient encounter procedure [facility] Department Start: 04-07-2023 Telephone encounter Katty orta APRN.[facility] Work Phone: Pain [facility] [place] Comment on above: follow up on pt mercedes rds Received Outside Med ical Records Start: 04-04-2023 Telephone encounter Katty orta APRN.[facility] Work Phone: Pain [facility] [place] Comment on above: Future Appointment follow up on med rec ords Start: 04-04-2023 End: 04-04-2023 ambulatory Katty Steiner STAFF CYTOTECHNOLOGIST.MACHINE SPECIALIST Work Phone: Pain [facility] [place] Comment on above: Encounter for long-t erm (current) use of medications (Primary Dx); High risk medication use; Myofascial pain syndrome; Encounter for long-term (current) use of high-risk medication; Postlaminectomy syndrome, lumbar region; Cervicalgia; Lumbar radiculopathy; Chronic pain syndrome Start: 04-04-2023 End: 04-04-2023 Telemedicine consultation with patient Katty Steiner APRN.MACHINE SPECIALIST Work Phone: [facility] Start: 04-03-2023 Telephone encounter Katty orta APRN.MACHINE SPECIALIST Work Phone: Pain [facility] [place] Comment on above: virtual visit precha rting Start: 03-25-2023 End: 03-26-2023 ambulatory [facility] Facility:[facility] Start: 03-25-2023 End: 03-25-2023 Subsequent hospital visit by physician Mri [facility] Wstr (I-Stat/1.5t) Work Phone: Radiology Comment on above: Radiculopathy of lum bar region [M54.16] Start: 03-14-2023 Telephone encounter Katty orta APRN.MACHINE SPECIALIST Work Phone: Pain [facility] [place] Start: 03-14-2023 End: 03-14-2023 ambulatory Katty Steiner STAFF CYTOTECHNOLOGIST.MACHINE SPECIALIST Work Phone: Pain [facility] [place] Comment on above: Encounter for long-t erm (current) use of medications (Primary Dx); Myofascial pain syndrome; High risk medication use; Cervicalgia; Lumbar radiculopathy; Lumbar post-laminectomy syndrome; Opioid dependence, continuous (HCC); Encounter for long-term (current) use of high-risk medication; Postlaminectomy syndrome, lumbar region; Chronic pain syndrome Start: 03-14-2023 End: 03-14-2023 Telemedicine consultation with patient Katty Steiner APRN.MACHINE SPECIALIST Work Phone: [facility] Start: 03-10-2023 Refill Joyce Figueroa DO Work Phone: Pain Management Comment on above: Refill Request Start: 02-20-2023 Telephone encounter Katty orta APRN.MACHINE SPECIALIST Work Phone: Pain [facility] [place] Start: 02-11-2023 End: 02-18-2023 Patient encounter procedure Joyce Marley DO Work Phone: Pain Management Comment on above: Postlaminectomy synd charles, lumbar region (Primary Dx); High risk medication use; Intentional overdose of drug in tablet form (HCC); Opioid dependence, continuous (HCC); Encounter for long-term (current) use of medications; Lumbar radiculopathy; Cervicalgia; Encounter for long-term (current) use of high-risk medication; Lumbar post-laminectomy syndrome; Neck pain; Other chronic pain; Chronic pain syndrome; Myofascial pain syndrome; Radiculopathy of lumbar region; Rheumatoid arthritis involving multiple sites, unspecified whether rheumatoid factor present (HCC) Start: 01-13-2023 End: 01-13-2023 ambulatory [facility] Work Phone: Start: 01-13-2023 End: 01-13-2023 Patient encounter procedure [facility] Work Phone: Start: 01-10-2023 Telephone encounter Katty orta APRN.MACHINE SPECIALIST Work Phone: Pain [facility] [place] Comment on above: Future Appointment Start: 01-09-2023 Telephone encounter Katty orta APRN.MACHINE SPECIALIST Work Phone: [facility] [place] Comment on above: virtual visit precha rting Start: 12-12-2022 End: 12-12-2022 ambulatory Katty E Steiner STAFF CYTOTECHNOLOGIST.[facility] Work Phone: [facility] [place] Comment on above: High risk medication use (Primary Dx); Opioid dependence, continuous (HCC); Encounter for long-term (current) use of medications; Lumbar radiculopathy; Cervicalgia; Postlaminectomy syndrome, lumbar region; Encounter for long-term (current) use of high-risk medication; Lumbar post-laminectomy syndrome; Neck pain; Other chronic pain Start: 12-12-2022 End: 12-12-2022 Telemedicine consultation with patient Katty E Steiner STAFF CYTOTECHNOLOGIST.[facility] Work Phone: [facility] Start: 10-24-2022 End: 10-24-2022 ambulatory Katty E Steiner STAFF CYTOTECHNOLOGIST.[facility] Work Phone: [facility] [place] Comment on above: Encounter for long-t erm (current) use of medications (Primary Dx); Opioid dependence, continuous (HCC); Lumbar radiculopathy; Lumbar post-laminectomy syndrome; Encounter for long-term (current) use of high-risk medication; Postlaminectomy syndrome, lumbar region; Cervicalgia; Neck pain; Other chronic pain Start: 10-24-2022 End: 10-24-2022 Telemedicine consultation with patient Katty Steiner STAFF CYTOTECHNOLOGIST.MACHINE SPECIALIST Work Phone: [facility] Start: 08-29-2022 End: 08-29-2022 ambulatory Katty E Steiner STAFF CYTOTECHNOLOGIST.[facility] Work Phone: [facility] [place] Comment on above: Encounter for long-t erm (current) use of medications (Primary Dx); Lumbar radiculopathy; Encounter for long-term (current) use of high-risk medication; Postlaminectomy syndrome, lumbar region; Cervicalgia; Neck pain; Other chronic pain; Lumbar post-laminectomy syndrome Start: 08-29-2022 End: 08-29-2022 Telemedicine consultation with patient Katty E Jatin STAFF CYTOTECHNOLOGIST.MACHINE SPECIALIST Work Phone: [facility] Start: 08-01-2022 End: 08-01-2022 ambulatory Katty Una Steiner STAFF CYTOTECHNOLOGIST.[facility] Work Phone: Pain [facility] [place] Comment on above: Encounter for long-t erm (current) use of medications (Primary Dx); Lumbar radiculopathy; Encounter for long-term (current) use of high-risk medication; Postlaminectomy syndrome, lumbar region; Lumbar post-laminectomy syndrome; Other chronic pain; Neck pain; Cervicalgia Start: 08-01-2022 End: 08-01-2022 Telemedicine consultation with patient Katty Heart Jatin WATTN.[facility] Work Phone: [facility] Start: 07-04-2022 End: 07-04-2022 ambulatory Katty Una Jatin STAFF CYTOTECHNOLOGIST.[facility] Work Phone: Pain [facility] [place] Comment on above: Encounter for long-t erm (current) use of medications (Primary Dx); Lumbar radiculopathy; Encounter for long-term (current) use of high-risk medication; Postlaminectomy syndrome, lumbar region; Cervicalgia; Neck pain; Other chronic pain; Lumbar post-laminectomy syndrome Start: 07-04-2022 End: 07-04-2022 Telemedicine consultation with patient Katty Heart Jatin WATTN.MACHINE SPECIALIST Work Phone: [facility] Start: 06-21-2022 Refill Katty Steiner APRN.[facility] Work Phone: Pain Management Comment on above: Refill Request Start: 06-05-2022 Refill Katty Heart Steiner STAFF CYTOTECHNOLOGIST.[facility] Work Phone: Pain Management Comment on above: Refill Request Start: 05-31-2022 End: 05-31-2022 ambulatory Katty Steiner APRN.[facility] Work Phone: Pain [facility] [place] Comment on above: Encounter for long-t erm (current) use of medications (Primary Dx); Lumbar radiculopathy; Encounter for long-term (current) use of high-risk medication; Postlaminectomy syndrome, lumbar region; Cervicalgia; Lumbar post-laminectomy syndrome; Other chronic pain Start: 05-31-2022 End: 05-31-2022 Telemedicine consultation with patient Katty Steiner APRN.CNP Work Phone: [facility] Start: 05-22-2022 Refill Lamar Daugherty APRN.CNS Work Phone: Pain Management Comment on above: Refill Request Start: 04-26-2022 End: 04-26-2022 Distance [facility] Katty Steiner APRN.MACHINE SPECIALIST Work Phone: Pain [facility] [place] Comment on above: Chronic pain syndrom e (Primary Dx); Chronic pain disorder; Lumbar radiculopathy; Lumbar post-laminectomy syndrome; Cervicalgia; Postlaminectomy syndrome, lumbar region; Encounter for long-term (current) use of high-risk medication; Encounter for long-term (current) use of medications; Neck pain Start: 03-29-2022 Telephone encounter Katty orta APRN.MACHINE SPECIALIST Work Phone: Pain Management Comment on above: Pt submitted UDS Start: 03-26-2022 End: 03-26-2022 Distance [facility] Katty Una Jatin WATTN.MACHINE SPECIALIST Work Phone: Pain Management Comment on above: Chronic pain syndrom e (Primary Dx); Chronic pain disorder; Lumbar radiculopathy; Lumbar post-laminectomy syndrome; Encounter for long-term (current) use of medications Start: 02-22-2022 End: 02-22-2022 ambulatory Katty Steiner APRN.MACHINE SPECIALIST Work Phone: Pain Management Comment on above: Chronic pain syndrom e (Primary Dx); Encounter for long-term (current) use of medications; Lumbar radiculopathy; Postlaminectomy syndrome, lumbar region; Cervicalgia Start: 02-22-2022 End: 02-22-2022 Telemedicine consultation with patient Katty Heart Jatin SPARKS Work Phone: [facility] Start: 02-22-2022 Telephone encounter Katty orta APRN.CNP Work Phone: Pain Management Comment on above: Call pt Start: 02-07-2022 End: 02-07-2022 Patient encounter procedure KatieMarquita Mendoza DO Work Phone: Orthopaedics Comment on above: Parkinson disease (H CC) (Primary Dx); Cerebrovascular accident (CVA) due to other mechanism (HCC) Start: 01-25-2022 End: 01-25-2022 ambulatory Katty E Steiner STAFF CYTOTECHNOLOGIST.MACHINE SPECIALIST Work Phone: Pain Management Comment on above: Chronic pain syndrom e (Primary Dx) Start: 01-25-2022 End: 01-25-2022 Telemedicine consultation with patient Katty E Steiner STAFF CYTOTECHNOLOGIST.MACHINE SPECIALIST Work Phone: [facility] Start: 01-15-2022 End: 01-15-2022 ambulatory Katty E Steiner STAFF CYTOTECHNOLOGIST.MACHINE SPECIALIST Work Phone: Pain Management Comment on above: Lumbar radiculopathy (Primary Dx); Lumbar post-laminectomy syndrome; Neck pain; Chronic pain syndrome; Encounter for long-term (current) use of medications Start: 01-15-2022 End: 01-15-2022 Telemedicine consultation with patient Katty E Steiner STAFF CYTOTECHNOLOGIST.MACHINE SPECIALIST Work Phone: [facility] Start: 01-03-2022 Telephone encounter KatieMarquita Mendoza DO Work Phone: Orthopaedics Comment on above: Appointment Start: 12-27-2021 End: 12-27-[address] Clemente Randhawa Work Phone: [facility]Breast Imaging - Biopsy/[place] Start: 12-26-2021 Chart abstracting Katty E Sean d STAFF CYTOTECHNOLOGIST.MACHINE SPECIALIST Work Phone: [facility] Start: 12-25-2021 Refill Katty E Steiner STAFF CYTOTECHNOLOGIST.MACHINE SPECIALIST Work Phone: Pain Management Comment on above: Refill Request Start: 12-25-2021 End: 12-25-[address] Clemente Randhawa Work Phone: [facility] Start: 12-18-2021 End: 12-18-2021 Patient encounter procedure [facility] Start: 11-27-2021 End: 11-27-2021 Subsequent hospital visit by physician Rodrick Villegas APRN.MACHINE SPECIALIST Work Phone: [facility] Comment on above: VIRTUAL Start: 11-19-2021 End: 11-19-2021 Patient encounter procedure [facility]-Laboratory, [place] Start: 10-26-2021 End: 10-26-2021 Subsequent hospital visit by physician Katty Steiner APRN.MACHINE SPECIALIST Work Phone: [facility] Comment on above: VIRTUAL Start: 09-05-2021 End: 09-05-2021 Patient encounter procedure [facility]Laboratory, Specimen Start: 03-09-2019 End: 03-09-2019 Outside Orders [facility] Scheduling Comment on above: Positive CARLOS (antinu clear antibody) (Primary Dx) Start: 01-27-2019 Notes/Results Only Other Other NOTE S/RESULTS Start: 01-27-2019 End: 01-27-2019 Patient encounter procedure Other Other [facility] Start: 06-03-2018 End: 06-03-2018 Patient encounter procedure Ck Menendez Work Phone: [facility] Start: 04-28-2018 End: 04-28-2018 Patient encounter procedure Ck Granda Shon Work Phone: [facility] Start: 02-19-2018 End: 02-20-2018 Patient encounter VIKRAM BUTLER Facility:[facility] Start: 02-05-2018 End: 02-06-2018 Patient encounter VIKRAM BUTLER Facility:[facility] Procedures Date Procedure Procedure Detail Performing Clinician Start: 10-06-[address] Reed higginbotham MD Work Phone: Start: 03-25-2023 Mri spinal canal lum bar w/o & w/contr matrl Joyce Marley DO Work Phone: Start: 01-13-2023 Radiologic examinati on of knee Start: 12-27-[address] Clemente Randhawa Work Phone: Start: 12-18-2021 Ultrasonography of breast Start: 12-18-2021 Bilateral mammography Start: 09-05-2021 Cytopathology proced ure, preparation of smear, genital source Start: 09-05-2021 Investigation of tra nsfusion reaction Start: 01-27-2019 LABS (OUTSIDE) Other Ot her Start: 02-18-2017 End: 02-18-2017 Documentation of current medications Adelita Mendoza Work Phone: Start: 01-23-2017 End: 01-23-2017 Documentation of current medications Adelita Mendoza Work Phone: Start: 01-09-2017 End: 01-09-2017 Documentation of current medications Adelita Mendoza Work Phone: Start: 01-09-2017 End: 02-11-2017 Mri any jt lower extrem w/o contrast matrl Adelita Mendoza Work Phone: Start: 09-19-2016 End: 09-19-2016 Documentation of current medications Evelyn Palafoxy Work Phone: Start: 09-19-2016 End: 02-11-2017 Radex hip unilateral with pelvis 2-3 views Adelita Mendoza Work Phone: Start: 06-07-2015 Colonoscopy Katty Sean sheppard STAFF CYTOTECHNOLOGIST.MACHINE SPECIALIST Work Phone: Start: 04-20-2015 End: 02-11-2017 Mri any jt upper extremity w/o contrast matrl Adelita Mendoza Work Phone: Cytopathology proced ure, preparation of smear, genital source Investigation of tra nsfusion reaction Plan of Treatment Date Care Activity Detail Author Start: 2036 RSV Vaccine (1 - 1-d ose 75+ series) RSV Vaccine (1 - 1-dose 75+ series) [facility] Start: 02-14-2025 Influenza vaccination Influenz a Vaccine (Season Ended) [facility] Start: 01-28-2025 End: 01-28-2025 Patient encounter procedure 01/28/2025 9:30 AM EDT Office Visit Pain Management [address] [place] [address] Rodrick Villegas APRN.MACHINE SPECIALIST [address] [place] [address] 2 month follow up Pain Management Comment on above: 2 month follow up Start: 11-25-2024 End: 11-25-2024 Follow-up encounter 11/25/2024 11:30 AM EDT [facility] [address] [place] [address] Katty Steiner, STAFF CYTOTECHNOLOGIST.MACHINE SPECIALIST [address] [place] [address] 2 month follow up [facility] Comment on above: 2 month follow up Start: 11-19-2024 BP Controlled (<130/80) BP Con trolled (<130/80) [facility] Start: 10-06-2024 Patient discharge [facility] Start: 09-09-2024 End: 12-09-2024 BENZO CONFIRM, URINE [facility] Work Phone: Comment on above: Expected: 09/09/2024 , Expires: 12/09/2024 Start: 09-09-2024 End: 12-09-2024 QUANTITATIVE TOXICOLOGY PANEL, URINE [facility] Comment on above: Expected: 09/09/2024 , Expires: 12/09/2024 Start: 09-09-2024 End: 09-09-2024 Patient encounter procedure 09/09/2024 1:30 PM EDT Office Visit [facility] [address] [place] [address] Katty Steiner, STAFF CYTOTECHNOLOGIST.MACHINE SPECIALIST [address] [place] [address] 2 month follow up [facility] Comment on above: 2 month follow up Start: 07-13-2024 End: 07-13-2024 Follow-up encounter 07/13/2024 3:00 PM EST [facility] [address] [place] [address] Katty Steiner, STAFF CYTOTECHNOLOGIST.MACHINE SPECIALIST [address] [place] [address] 3 month follow up [facility] Comment on above: 3 month follow up Start: 06-16-2024 Medicare Advantage A nnual Wellness Visit Medicare Advantage Annual Wellness Visit [facility] Start: 04-13-2024 End: 04-13-2024 Patient encounter procedure 04/13/2024 2:00 PM EDT Office Visit Pain [facility] [address] [place] [address] Katty Steiner, STAFF CYTOTECHNOLOGIST.MACHINE SPECIALIST [address] [place] [address] 2 month follow up Pain [facility] Comment on above: 2 month follow up Start: 02-15-2024 Covid-19 Vaccine ( season) Covid-19 Vaccine ( season) [facility] Start: 02-15-2024 Influenza vaccination Influenza Vacc ine (#1) [facility] Start: 02-10-2024 End: 02-10-2024 Follow-up encounter 02/10/2024 3:00 PM EDT [facility] [address] [place] [address] Katty Steiner, STAFF CYTOTECHNOLOGIST.MACHINE SPECIALIST [address] [place] [address] 2 month follow up Pain [facility] Comment on above: 2 month follow up Start: 11-27-2023 End: 02-26-2024 TOXASSURE FLEX 23, URINE TOXASSURE FLEX 23, URINE Lab Routine Encounter for long-term opiate analgesic use Expected: 11/27/2023, Expires: 02/26/2024 [facility] Work Phone: Comment on above: Expected: 11/27/2023 , Expires: 02/26/2024 Start: 11-20-2023 End: 11-20-2023 Patient encounter procedure 11/20/2023 9:00 AM EDT Office Visit Pain [facility] [address] [address] Katty Steiner APRN.MACHINE SPECIALIST [address] [place] [address] 2 month follow up Pain [facility] [place] Comment on above: 2 month follow up Start: 10-09-2023 End: 10-09-2023 Follow-up encounter 10/09/2023 1:30 PM EDT [facility] [address] [address] Katty Steiner, CASEY.MACHINE SPECIALIST [address] [place] [address] 1 month followup Pain [facility] [place] Comment on above: 1 month followup Start: 07-13-2023 End: 10-12-2023 TOXASSURE FLEX 23, URINE TOXASSURE FLEX 23, URINE Lab Routine High risk medication use Expected: 07/13/2023, Expires: 10/12/2023 [facility] Work Phone: Comment on above: Expected: 07/13/2023 , Expires: 10/12/2023 Start: 02-14-2023 Covid-19 Vaccine ( season) Covid-19 Vaccine () [facility] Start: 02-14-2023 Influenza vaccination [facility] Start: 02-11-2023 End: 04-13-2023 C reactive protein [Mass/volume] in Serum or Plasma C-REACTIVE PROTEIN (CRP) Lab Routine Chronic pain syndrome Myofascial pain syndrome Rheumatoid arthritis involving multiple sites, unspecified whether rheumatoid factor present (HCC) Expected: 02/11/2023, Expires: 04/13/2023 [facility] Work Phone: Comment on above: Expected: 02/11/2023 , Expires: 04/13/2023 Start: 02-11-2023 End: 04-13-2023 Erythrocyte sedimentation rate SED RATE WESTERGREN Lab Routine Chronic pain syndrome Myofascial pain syndrome Rheumatoid arthritis involving multiple sites, unspecified whether rheumatoid factor present (HCC) Expected: 02/11/2023, Expires: 04/13/2023 [facility] Work Phone: Comment on above: Expected: 02/11/2023 , Expires: 04/13/2023 Start: 02-11-2023 End: 04-13-2023 Rheumatoid factor [Units/volume] in Serum or Plasma RHEUMATOID FACTOR BL Lab Routine Chronic pain syndrome Myofascial pain syndrome Rheumatoid arthritis involving multiple sites, unspecified whether rheumatoid factor present (HCC) Expected: 02/11/2023, Expires: 04/13/2023 [facility] Work Phone: Comment on above: Expected: 02/11/2023 , Expires: 04/13/2023 Start: 05-06-2022 Diabetes Screening Diabetes Screenin g [facility] Start: 02-26-2022 End: 04-28-2022 DRUG SCR TOXASURE DRUG SCR TOXASURE Lab Routine Encounter for long-term (current) use of high-risk medication Expected: 02/26/2022, Expires: 04/28/2022 [facility] Work Phone: Comment on above: Expected: 02/26/2022 , Expires: 04/28/2022 Start: 02-14-2022 Influenza vaccination [facility] Start: 2021 RSV Vaccine (1 - 1-d ose 60+ series) RSV Vaccine (1 - 1-dose 60+ series) [facility] Start: 2021 RSV Vaccine (1 - Ris k 60-74 years 1-dose series) RSV Vaccine (1 - Risk 60-74 years 1-dose series) [facility] Start: 04-05-2019 End: 04-05-2019 Office Visit 04/05/2019 Office Visit Rheumatology Justyna Greene MD [address] [place] [address] Division of Rheumatology Start: 02-14-2019 Influenza vaccination INFLUENZA VACC INE (#1) [facility] Start: 06-07-2018 Colonoscopy COLONOSCOPY [facility] Start: 06-07-2018 COLORECTAL CANCER SCREENING COLORECTAL CANCER SCREENING [facility] Start: 06-07-2018 Screening for malign ant neoplasm of colon [facility] Start: 06-03-2018 End: 06-03-2018 Ambulatory 06/03/2018 Office Visit Rheumatology Shon Mcintyre, Ck Granda, DO [address] [id number] [phone] [facility] Start: 02-14-2018 Influenza vaccination INFLUENZA VACC INE (#1) [facility] Work Phone: Start: 03-18-2017 End: 03-18-2017 Patient encounter procedure Appointment [facility] Work Phone: Start: 02-18-2017 End: 02-18-2017 Patient encounter procedure Appointment [facility] Work Phone: Start: 02-05-2017 End: 02-05-2017 Patient encounter procedure Appointment [facility] Work Phone: Start: 01-09-2017 End: 01-09-2017 Patient encounter procedure Appointment [facility] Work Phone: Start: 01-09-2017 End: 02-11-2017 Mri any jt lower extrem w/o contrast matrl MRI Joint Lower Extremity [facility] Work Phone: Start: 09-25-2016 End: 09-25-2016 Physical Therapy [facility], [address] [place] [address], [phone] [facility] Work Phone: Start: 09-19-2016 End: 02-11-2017 Radex hip unilateral with pelvis 2-3 views X-Ray, Hip, unilateral, with pelvis; 2-3 views [facility] Work Phone: Start: 05-17-2015 End: 05-17-2015 Physical Therapy General Physical Therapy [facility], [address] [place] [address], [phone] [facility] Work Phone: Start: 04-20-2015 End: 02-11-2017 Mri any jt upper extremity w/o contrast matrl MRI Joint Upper Extremity [facility] Work Phone: Start: 01-18-2015 End: 01-18-2015 Physical Therapy General Physical Therapy [facility], [address] [place] [address], [phone] [facility] Work Phone: Start: 01-12-2015 End: 01-13-2015 Office outpatient visit 25 minutes [id number] Ofc Vst, Est Level IV [facility] Work Phone: Start: 01-12-2015 End: 01-12-2015 Radex shoulder complete minimum 2 views X-Ray, Shoulder [facility] Work Phone: Start: 01-12-2015 End: 01-12-2015 Radiologic exam knee complete 4/more views X-Ray, Knee [facility] Work Phone: Start: 07-06-2014 Screening for malign ant neoplasm of colon Sigmoidoscopy [facility] Start: 07-06-2014 SIGMOIDOSCOPY SIGMOIDOSCOPY [facility] Start: 03-17-2013 Pneumococcal Vaccine : 50+ (2 of 2 - PCV) Pneumococcal Vaccine: 50+ (2 of 2 - PCV) [facility] Start: 2011 Colonoscopy COLON CANCER S CREENING DISCUSSION [facility] Start: 2011 Protein mass conc COLON CANCER SCREENING DISCUSSION [facility] Work Phone: Start: 2011 SHINGRIX VACCINE (1 of 2) SEALS GRIX VACCINE (1 of 2) [facility] Start: 2011 Zoster vaccine hzv l bailee for subcutaneous use ZOSTER (SHINGLES) VACCINE (1 of 2) [facility] Start: 2006 COLOGUARD (FIT-DNA) COLOGUARD (FIT-D NA) [facility] Start: [address] [facility]OGR[facility]HY [facility] Start: 2006 DIABETES SCREEN DIABETES SCREEN [facility] Start: 2006 Diabetes Screening Diabetes Screenin g [facility] Start: 2006 FECAL OCCULT BLOOD FECAL OCCULT BLOO D [facility] Start: 2006 Lipid 1996 panel - S kerwin or Plasma Lipid Screening [facility] Start: 2006 Lipid panel Lipid Screening [facility] Start: 2006 LIPID SCREEN LIPID SCREEN [facility] Start: 2006 Screening for malign ant neoplasm of colon [facility] Start: 2001 Fasting lipid profile LIPID SCREENIN G [facility] Work Phone: Start: 2001 Mammography [facility] Start: 2001 Protein mass conc MAMMOGRAM SC REENING DISCUSSION [facility] Work Phone: Start: 2001 Screening for malign ant neoplasm of breast Mammogram Screening [facility] Start: 2001 Screening mammography MAMMOGRA M SCREENING DISCUSSION [facility] Start: 1991 HPV TESTING HPV TESTING [facility] Start: 1991 Screening for malign ant neoplasm of cervix HPV Testing [facility] Start: 1982 PAP TESTING PAP TESTING [facility] Start: 1982 Screening for malign ant neoplasm of cervix [facility] Start: 1980 Third diphtheria, te tanus and acellular pertussis (DTaP) vaccination TDAP (ADULT) [facility] Work Phone: Start: 1980 Urine microalbumin profile [facility] Start: 1979 ANNUAL PCP TEAM ADVANCED PRACTICE NURSE PSYCHOTHERAPIST HOLLIE DISEASE VISIT ANNUAL PCP TEAM CHRONIC DISEASE VISIT [facility] Start: 1979 Anxiety Screening Anxiety Screening [facility] Start: 1979 BP CONTROLLED (<130/80) BP CON TROLLED (<130/80) [facility] Start: 1979 HEPATITIS C SCREENING HEPATITIS C [facility] Start: 1979 Hepatitis C screening Hepatitis C [facility] Start: 1979 HIV SCREENING HIV SCREENING [facility] Start: 1979 HIV screening HIV Screening [facility] Start: 1979 Tetanus vaccination TETANUS [facility] Work Phone: Start: 1974 HIV screening HIV SCREENING DISCUSSION [facility] Work Phone: Start: 1966 COVID-19 VACCINE (#1) COVID-19 VACCI NE (#1) [facility] Start: 1961 COVID-19 VACCINE (#1) COVID-19 VACCI NE (#1) [facility] Start: 1961 Hepatitis C antibody , confirmatory test HEPATITIS C VIRUS SCREENING [facility] Work Phone: BENZO CONFIRM, URINE BENZO CONFI RM, URINE Lab Routine Encounter for long-term opiate analgesic use 09/09/2024 1:54 PM EDT [facility] Clostridioides diffi cile DNA [Presence] in Unspecified specimen by ROMAIN with probe detection [facility] Elastase.pancreatic [Presence] in Stool [facility] Giardia lamblia Ag [Presence] in Stool by Immunoassay [facility] Lactoferrin [Presenc e] in Stool by Immunoassay [facility] End: 03-12-2024 Mri spinal canal lumbar w/o & w/contr matrl MRI LUMBAR SPINE WO/W IVCON Radiology Routine Radiculopathy of lumbar region 1 Occurrences starting 02/11/2023 until 03/12/2024 [facility] Work Phone: Comment on above: 1 Occurrences starti ng 02/11/2023 until 03/12/2024 Nucleic acid assay [facility] OR parasites identification [facility] Patient referral [facility] Work Phone: Protein measurement [facility] QUANT TOX PANEL QUANT TOX PANEL Lab Routine Encounter for long-term opiate analgesic use 09/09/2024 1:54 PM EDT [facility] SPECIMEN VALIDITY, URINE SPECIME N VALIDITY, URINE Lab Routine Encounter for long-term opiate analgesic use 09/09/2024 1:54 PM EDT [facility] Ultrasonography guid ed biopsy of breast [facility] Work Phone: End: 10-09-2025 XR Cervical spine AP and Lateral and oblique XR CERV OTHER 4V AP/LAT/OBL Radiology Routine Chronic cervical pain 1 Occurrences starting 09/09/2024 until 10/09/2025 [facility] Comment on above: 1 Occurrences starti ng 09/09/2024 until 10/09/2025 XR Cervical spine AP and Lateral and oblique XR CERV OTHER 4V AP/LAT/OBL Radiology Routine Chronic cervical pain 09/09/2024 2:28 PM EDT [facility] Immunizations Immunization Date Immunization Notes Care Provider Ming greer 03-19-2023 influenza virus vaccine, unspecified formulation Katty Steiner APRN.CNP Work Phone: [facility] 03-30-2021 Influenza virus vaccine [facility] 03-08-2021 influenza, injectabl e, quadrivalent, preservative free Dr. Reed Vazquez MD Work Phone: [facility] 03-08-2021 influenza virus vaccine, unspecified formulation Joyce Marley DO Work Phone: [facility] 08-17-2019 influenza, injectabl e, quadrivalent, preservative free [facility] 08-17-2019 influenza, seasonal, injectable [facility] 04-07-2018 Influenza virus vaccine [facility] 04-21-2017 influenza, injectabl e, quadrivalent, preservative free Dr. Reed Vazquez MD Work Phone: [facility] 04-09-2016 influenza, injectabl e, quadrivalent, preservative free Dr. Reed Vazquez MD Work Phone: [facility] 03-17-2012 Pneumococcal Vaccine [facility] Work Phone: 03-17-2012 pneumococcal vaccine , unspecified formulation [facility] 02-15-1998 tetanus toxoid, adsorbed Dr. Reed Vazquez MD Work Phone: [facility] Payers Date Payer Category Payer Self-pay [id number] 2022 Medicare (Managed Care) [facility] DUAL COMPLETE HMO POS SNP [id number] 2022 Unknown [id number] 2021 Medicare UHC MEDICARE UHC DUAL COMPLETE HMO SNP [id number] 2021-Present [phone] [address] [place] [address] Medicare [id number] 2021 Medicare [id number] 2019 Medicaid MEDICAID MEDICAI D [id number] 2019-Present [id number] 2018 Medicare [id number] 2015 Medicaid MEDICAID [facility] MEDICAID [id number] 2015-Present [phone] [address] [place] [address] Medicaid [id number] 2015 Medicaid [id number] 2015 Medicaid [id number] 2001 Medicare MEDICARE MEDICAR E A AND B xxxxxxxxxx 2001-Present [place], [place] xxxxxxxxxx [id number] 2001 Medicare [id number] 2001 Medicare MEDICARE MEDICAR E A AND B [id number] 2001-Present [phone] [address] [address] [place] [address] Medicare [id number] 1961 Unknown [id number] Unknown [id number] 462 Unknown [id number] 462 Unknown [id number] 462 Unknown [id number] 462 Unknown [id number] 462 Unknown [id number] 462 Unknown [id number] 462 Unknown [id number] 462 Unknown [id number] 462 Social History Date Type Detail Facility Tobacco smoking status NHIS Unknown if ever smoked [facility] Work Phone: Start: 1960 Sex Assigned At Not on file [facility] Work Phone: Start: 04-24-2021 End: 01-31-2022 Tobacco smoking status NHIS Unknown if ever smoked [facility] Start: 03-18-2019 None [facility] Start: 08-16-2019 Alone;With Family [facility] Start: 03-18-2019 Non-smoker [facility] Start: 1960 Sex Assigned At Female [facility] Start: 02-07-2022 End: 10-04-2024 Tobacco smoking status NHIS Never smoked tobacco [facility] Start: 12-20-2020 End: 11-25-2024 Alcohol intake Current non-drinker of alcohol (finding) [facility] Start: 12-15-2021 End: 01-25-2022 Exposure to SARS-CoV-2 (event) Not sure [facility] Start: 02-07-2022 Tobacco use and exposure Smokeless tobacco non-user [facility] Start: 10-24-2022 End: 12-12-2022 History of Social function [facility] Start: 10-24-2022 End: 12-12-2022 Tobacco use panel [facility] National Score (1-100), lower number is lower risk 58 [facility] Start: 10-06-2024 Sex Female (finding) [facility] NEGATED: Highlighted row Not [facility] Goals Date Patient Goal Desired Activity /State Mental Status Date Assessment Result Facility 10-06-2024 Cognitive function Voice/Name [facility] Work Phone: Clinical Notes 06-07-2015 to 11-25-2024 Patient InstructionsKatty Steiner APRN.CNP - 11/25/2024 11:21 AM EDT Note Date & Type Note Facility 11-25-2024 Instructions Katty Steiner APRN.CNP - 11/25/2024 11:30 AM EDT Despite its legality, THC containing products and CBD products that may contain THC are not to be used while being prescribed pain medications. If your drug screen contains any THC your medication will be discontinued. Discussed cervical xr Ordered PT for cervical area(Start when able)-pt is aware that PT must be completed prior to an MRI without contrast being approved Continue Gabapentin Continue to follow-up with Dr. Mcbride(At [facility]) - every 3-6 months. pt needs to make an appt Continue to follow-up to PCP (Dr. Randhawa)- gastroparesis. Continue to follow-up with Dr. Butler (neurologist) Continue Fentanyl 25 mcg patches F/u Dr. Goncalves as needed(she is declining a SCS) A prescription for narcan (naloxone) has been offered to the patient. Reports having at home. The pain management agreement was reviewed with the patient. The patient is aware of the risks/benefits of the medicatiion, potential for addiction/overdose, and how to safely store and dispose of the medication(s). She will sign the pain agreement the next time she comes to the office. She was started on this medication and has been maintained on it by Dr Marley and [employer] working with her. She is compliant with the pain management agreement and there have been no signs of medication misuse, abuse or diversion. Follow-up in 2 months Katty Steiner APRN.CNP documented in this encounter [facility] 11-25-2024 Note HNO ID: [id number] Author: KATTY STEINER APRN.CNP Service: ? Author Type: Nurse Practitioner Type: Progress Notes Filed: 11/25/2024 11:32 Note Text: This video visit was performed via Parudi. Patient consented to receive health care services via virtual visit for this encounter Provider Location: Non-[place] Patient Location: Patient Home or Place of Residence I have communicated my name and active licensure. The patient's identity and physical location were verified at the time of this visit. Either the patient or their legal strategic partnership representative has been informed of the risks and benefits of -- and alternatives to -- treatment through a remote evaluation and consents to proceed with the evaluation remotely. Chief Complaint: Pain History of Present Illness: Roseanna Jones is a 64 year old year old female being seen at [facility] for a evaluation and/or management of her chronic pain. Roseanna Jones last had a on 09/09/24. Since the last visit her pain level has remained stable. VAS: 7/10 Pain Location: back, neck, leg, arms Radiation: down left leg Character: aching, burning Numbness/tingling: toes left foot and hand Burning: left foot Weakness: denies Falls: denies Worsening factors: walking, standing, bending, activity Relieving factors: heat, ice and rest Patient denies any bowel or bladder dysfunction. Since the last office visit the patients medical history has not changed. The patient denies any new diagnoses, hospital visits or ER visits. The patient is currently prescribed Fentanyl Patches and gabapentin from our office. The Fentanyl Patch is located on her back(as reported by the pt). The medications are effective. The patient denies nausea, vomiting, constipation,rashes, drowsiness,weight gain, weight loss,dizziness,and fatigue. PDMP website checked and validated. The [place] report has been reviewed and is consistent with the patients medical history and medication intake. Last Opioid agreement effective date: 09/09/2024 Last UDS: Reviewed - No inconsistencies noted. last uds 07/11/23------consistent(+)ETOH Hx of DM manuel Last uds 11/20/23-----consistent manuel Last uds 09/09/24------consistent manuel Summary Report Date Value Ref Range Status 11/20/2023 FINAL Final Comment: Gabapentin, MS, Ur RFX ToxAssure Flex 23, Ur Test Result Flag Units Drug Present Fentanyl 26 ng/mg creat Norfentanyl 15 ng/mg creat Source of fentanyl is a scheduled prescription medication, including IV, patch, and transmucosal formulations. Norfentanyl is an expected metabolite of fentanyl. Gabapentin PRESENT Test Result Flag Units Ref Range Creatinine 111 mg/dL >=20 Declared Medications: Medication list was not provided. For clinical consultation, please call . Urine Panel: No results found for: UQCANN, UQBNZL, NKO1MJX, UQAMPH, UQMAMP, UQBUPRE, UQNORBUP, UQMTHD, UQEDDP, UQTRAM, UQDTRM, UQFNTL, UQNFTL, UQCODE, UQMORP, UQDCDN, UQHCOD, UQOXYC, UQHMOR, UQOXYM, UQCREA, UQPH, UQSPGR, UQOXID, UQSPQ Chronic Pain Functional Assessment Tools Pain Disability Index: 09/09/2024 11/25/2024 Pain Disability Index Family/Home Responsibilities: This category includes chores or duties performed around the house (e.g. yard work), errands or favors for other family members (e.g. driving the children to school) -- 7 Recreation: This category includes hobbies, sports, and other similar leisure time activities 8 7 Social Activity: This category refers to activities which involve participation with friends and acquaintances, other than family members. It includes parties, theater, concerts, dinning out, and other social functions 5 7 Occupation: This category refers to activities that are a part of or directly related to ones' job. This includes non-paying jobs as well, such as that of a housewife or volunteer worker 10 Total disability 10 Total disability Sexual Behavior: This category refers to the frequency and quality of one's sex life 0 No disability 7 Self Care: This category includes activities which involve personal maintenance and independent daily living (e.g. taking a shower, driving, getting dress, etc) 0 No disability 7 Life Support Activity: This category refers to basic-life supporting behaviors such as eating, sleeping, and breathing 0 No disability 7 PDI Score 52 (more content not included)... [facility] 11-25-2024 History of Presen t illness Narrative This video visit was performed via Parudi. Patient consented to receive health care services via virtual visit for this encounter Provider Location: [facility] Facility Patient Location: Patient Home or Place of Residence I have communicated my name and active licensure. The patient's identity and physical location were verified at the time of this visit. Either the patient or their legal strategic partnership representative has been informed of the risks and benefits of -- and alternatives to -- treatment through a remote evaluation and consents to proceed with the evaluation remotely. Chief Complaint: Pain History of Present Illness: Roseanna Jones is a 64 year old year old female being seen at [facility] for a evaluation and/or management of her chronic pain. Roseanna Jones last had a on 09/09/24. Since the last visit her pain level has remained stable. VAS: 7/10 Pain Location: back, neck, leg, arms Radiation: down left leg Character: aching, burning Numbness/tingling: toes left foot and hand Burning: left foot Weakness: denies Falls: denies Worsening factors: walking, standing, bending, activity Relieving factors: heat, ice and rest Patient denies any bowel or bladder dysfunction. Since the last office visit the patients medical history has not changed. The patient denies any new diagnoses, hospital visits or ER visits. The patient is currently prescribed Fentanyl Patches and gabapentin from our office. The Fentanyl Patch is located on her back(as reported by the pt). The medications are effective. The patient denies nausea, vomiting, constipation,rashes, drowsiness,weight gain, weight loss,dizziness,and fatigue. PDMP website checked and validated. The OARRS report has been reviewed and is consistent with the patients medical history and medication intake. Last Opioid agreement effective date: 09/09/2024 Last UDS: Reviewed - No inconsistencies noted. last uds 07/11/23------consistent(+)ETOH Hx of DM manuel Last uds 11/20/23-----consistent manuel Last uds 09/09/24------consistent manuel Summary Report Date Value Ref Range Status 11/20/2023 FINAL Final Comment: Gabapentin, MS, Ur RFX ToxAssure Flex 23, Ur Test Result Flag Units Drug Present Fentanyl 26 ng/mg creat Norfentanyl 15 ng/mg creat Source of fentanyl is a scheduled prescription medication, including IV, patch, and transmucosal formulations. Norfentanyl is an expected metabolite of fentanyl. Gabapentin PRESENT Test Result Flag Units Ref Range Creatinine 111 mg/dL >=20 Declared Medications: Medication list was not provided. For clinical consultation, please call . Urine Panel: No results found for: UQCANN, UQBNZL, GTQ9LKB, UQAMPH, UQMAMP, UQBUPRE, UQNORBUP, UQMTHD, UQEDDP, UQTRAM, UQDTRM, UQFNTL, UQNFTL, UQCODE, UQMORP, UQDCDN, UQHCOD, UQOXYC, UQHMOR, UQOXYM, UQCREA, UQPH, UQSPGR, UQOXID, UQSPQ Chronic Pain Functional Assessment Tools Pain Disability Index: 09/09/2024 11/25/2024 Pain Disability Index Family/Home Responsibilities: This category includes chores or duties performed around the house (e.g. yard work), errands or favors for other family members (e.g. driving the children to school) -- 7 Recreation: This category includes hobbies, sports, and other similar leisure time activities 8 7 Social Activity: This category refers to activities which involve participation with friends and acquaintances, other than family members. It includes parties, theater, concerts, dinning out, and other social functions 5 7 Occupation: This category refers to activities that are a part of or directly related to ones' job. This includes non-paying jobs as well, such as that of a housewife or volunteer worker 10 Total disability 10 Total disability Sexual Behavior: This category refers to the frequency and quality of one's sex life 0 No disability 7 Self Care: This category includes activities which involve personal maintenance and independent daily living (e.g. taking a shower, driving, getting dress, etc) 0 No disability 7 Life Support Activity: This category refers to basic-life supporting behaviors such as eating, sleeping, and breathing 0 No disability 7 PDI Score 52 Pain Enjoyment of Life and General Activity Scale (0-10): PEG: A Three-Item Scale Assessing Pain Intensity and Interference What number best describes your pain on average in the past week?: (Patient-Rptd) 7 (11/25/2024 7:10 AM) What number best describes how, during the past week, pain has interfered with your enjoyment of life?: (Patient-Rptd) 7 (11/25/2024 7:10 AM) What number best describes how, during the past week, pain has interfered with your general activity?: (Patient-Rptd) 7 (11/25/2024 7:10 AM) SOAPP: SOAPP QUESTIONS How often do you have mood swings?: 0 - Never (09/09/2024 1:33 PM) How often do you smoke a cigarette within an hour after you wake up?: 0 - Never (09/09/2024 1:33 PM) How often have you taken medication other than the way it was prescribed?: 0 - Never (09/09/2024 1:33 PM) How often have you used illegal drugs (for example, marijuana, cocaine, etc.) in the past five years?: 0 - Never (09/09/2024 1:33 PM) How often, in your lifetime, have you had legal problems or been arrested?: 0 - Never (09/09/2024 1:33 PM) Sum of Questions (> or = 7 is positive): 0 (09/09/2024 1:33 PM) REVIEW OF SYSTEMS: GENERAL: No weight loss or fevers RESPIRATORY: Negative for cough CARDIOVASCULAR: Negative for chest pain GI: No nausea, vomiting, or diarrhea. MUSCULOSKELETAL: + for joint pain or swelling, back pain and muscle pain @lastpdiallquestions@ PAST MEDICAL HISTORY Diagnosis Date Abdominal pain, epigastric Abdominal pain, epigastric Abdominal pain, generalized Abdominal pain, right upper quadrant Acute gastritis without mention of hemorrhage Arachnoiditis (HCC) Benign neoplasm of colon Benign neoplasm of duodenum, jejunum, and ileum Degeneration of intervertebral disc, site unspecified Depressive disorder, not elsewhere classified Diabetes (HCC) Diarrhea Diverticulitis of colon (without mention of hemorrhage)(562.11) Esophageal reflux Essential hypertension, malignant Headache(784.0) Hemorrhage of gastrointestinal tract, unspecified Internal hemorrhoids without mention of complication Nonorganic sleep disorder, unspecified Obstructive sleep apnea (adult) (pediatric) Other and unspecified hyperlipidemia Paralysis agitans (HCC) Parkinson's Disease Parkinson disease (HCC) PMH - PAST MEDICAL HISTORY OF glucose intolerant PAST SURGICAL HISTORY Procedure Laterality Date ARTHROSCOPY KNEE DIAGNOSTIC W/WO SYNOVIAL BX SPX left knee-reset patella COLONOSCOPY FLX DX W/COLLJ SPEC WHEN PFRMD 04/25/2006 Colonoscopy COLONOSCOPY FLX DX W/COLLJ SPEC WHEN PFRMD 09/20/2002 Colonoscopy COLONOSCOPY FLX DX W/COLLJ SPEC WHEN PFRMD 06/07/2015 Colonoscopy EGD TRANSORAL BIOPSY SINGLE/MULTIPLE 07/06/2009 ESOPHAGOGASTRODUODENOSCOPY TRANSORAL DIAGNOSTIC 04/25/2006 EGD ESOPHAGOGASTRODUODENOSCOPY TRANSORAL DIAGNOSTIC 09/20/2002 EGD ESOPHAGOGASTRODUODENOSCOPY TRANSORAL DIAGNOSTIC 06/07/2015 EGD LAPAROSCOPY SURG CHOLECYSTECTOMY 06/16/2000 Cholecystectomy, lap PAST SURGICAL HISTORY OF 06/16/1989 L-5, S-1 back surgery PAST SURGICAL HISTORY OF carpal tunnel PAST SURGICAL HISTORY OF Left 2019 IT Band Release SIGMOIDOSCOPY FLX DX W/COLLJ SPEC BR/WA IF PFRMD 07/06/2009 STEREOTACTIC CORE BIOPSY 04/11/2006 RIGHT BREAST BIOPSY TOTAL ABDOMINAL HYSTERECT W/WO RMVL TUBE OVARY 06/16/1994 Hysterectomy, JUANY FAMILY HISTORY Problem Relation Age of Onset Cancer Mother breast Diabetes Mother Heart Mother Heart Father Colon Cancer Father dx in his early forties Social History Tobacco Use Smoking status: Never Smokeless tobacco: Never Substance Use Topics Alcohol use: No Drug use: No Allergies: Acetazolamide Other: See Comments Pioglitazone Other: See Comments Amitriptyline Other: See Comments Biaxin [Clarithromy* Indocin [Indomethac* Penicillins Canagliflozin Other: See Comments Current Outpatient Medications Medication Sig dicyclomine (BENTYL) 10 mg capsule Take 1 capsule by mouth every 12 hours. TRESIBA FLEXTOUCH U-100 100 unit/mL (3 mL) injection pen insulin lispro (HUMALOG KWIKPEN) 100 unit/mL INJECT 45 units before each meal fentaNYL (DURAGESIC) 25 mcg/hr Apply 1 Patch as directed every 72 hours for 30 days. As directed. Patient should start on September 30, 2024. fentaNYL (DURAGESIC) 25 mcg/hr Apply 1 Patch as directed every 72 hours for 30 days. As directed. Patient should start on October 30, 2024. gabapentin (NEURONTIN) 600 mg tablet Take 1 tablet by mouth three times a day for 30 days. Patient should start on September 29, 2024. omeprazole (PRILOSEC) 40 mg capsule Take 40 mg by mouth once daily. fentaNYL (DURAGESIC) 25 mcg/hr Apply 1 Patch as directed every 72 hours for 30 days. As directed. Patient should start on May 19, 2024. meloxicam (MOBIC) 7.5 mg tablet Take 1 tablet by mouth every afternoon. naloxone 4 mg/actuation nasal spray (NARCAN) Use 1 spray in one nostril as needed for overdose. May repeat every 2 to 3 min in alternating nostrils until medical assistance is available ibuprofen (MOTRIN) 600 mg tablet TAKE 1 TABLET BY MOUTH THREE TIMES DAILY for 5 days (Patient not taking: Reported on 09/09/2024) TRULICITY 1.5 mg/0.5 mL pen injector inject 1 (ONE) pen (1.5mg) SUBCUTANEOUSLY EVERY WEEK glimepiride (AMARYL) 4 mg tablet Take 4 mg by mouth every morning. (Patient not taking: Reported on 09/09/2024) BIPAP (Patient not taking: Reported on 09/09/2024) No current facility-administered medications for this visit. PHYSICAL EXAMINATION: VIDEO EXAM: (performed via video enabled technology) GENERAL: alert and appropriate, in no distress, well-hydrated, well nourished, and happy, smiling, interactive HEAD: normocephalic, no abnormality or lesion noted RESPIRATORY: breathing non-labored NEUROLOGIC: no obvious deficit ASSESSMENT: Patient is stable. Chronic pain is persistent. Medications are helping Roseanna Jones to have an improved quality of life. Patient compliance with Opioid Contract: patient is compliant Encounter Diagnosis ICD-10-CM 1. Encounter for long-term opiate analgesic use Z79.891 2. Myofascial pain syndrome M79.18 3. Opioid dependence, continuous (HCC) F11.20 4. Chronic cervical pain M54.2 G89.29 5. Encounter for long-term (current) use of medications Z79.899 6. Postlaminectomy syndrome, lumbar region M96.1 7. Cervicalgia M54.2 8. High risk medication use Z79.899 9. Encounter for long-term (current) use of high-risk medication Z79.899 10. Lumbar radiculopathy M54.16 PLAN: The patient understands the goal of our treatment is a reduction in pain and/or an improved level of functioning with activities of daily living. If at any time the patient does not feel the medications are helping them to achieve these goals, the medications may be discontinued. The patient reports a reduction in pain and/or an improved level of functioning with activities of daily living, denies any significant adverse effects, is compliant with the pain management agreement and there are no signs of medication misuse, abuse or diversion; therefore, the medications will be continued. Despite its legality, THC containing products and CBD products that may contain THC are not to be used while being prescribed pain medications. If your drug screen contains any THC your medication will be discontinued. Discussed cervical xr Ordered PT for cervical area(Start when able)-pt is aware that PT must be completed prior to an MRI without contrast being approved Continue Gabapentin Continue to follow-up with Dr. Mcbride(At [facility]-Lupus/RA) - every 3-6 months. pt needs to make an appt Continue to follow-up to PCP (Dr. Randhawa)- gastroparesis. Continue to follow-up with Dr. Butler (neurologist) Continue Fentanyl 25 mcg patches F/u Dr. Goncalves as needed(she is declining a SCS) A prescription for narcan (naloxone) has been offered to the patient. Reports having at home. The pain management agreement was reviewed with the patient. The patient is aware of the risks/benefits of the medicatiion, potential for addiction/overdose, and how to safely store and dispose of the medication(s). She will sign the pain agreement the next time she comes to the office. She was started on this medication and has been maintained on it by Dr Marley and [employer] working with her. She is compliant with the pain management agreement and there have been no signs of medication misuse, abuse or diversion. Follow-up in 2 months Katty Steiner APRN.MACHINE SPECIALIST documented in this encounter [facility] 10-06-2024 Consult note [facility] 10-06-2024 History and physi annita note Note Date/Time October 06, 2024 2:34pm [facility] Medical Records Department [address] [place] [address] History & Physical Exam 10/06/24 1431 MR#: [id number] Acct: [id number] Name: ROSEANNA JONES Rep #:[id number] : 1960 64 From: Polo Mac DO PCP: Dr. Reed Vazquez MD Status:REG S NE Location: [place] [address] HPI - General General Date of Admission: 10/06/24 Date of Service: 10/06/24 Chief Complaint: diarrhea HPI Narrative HPI HPI Chief Complaint: LUQ pain and diarrhea Details: ROSEANNA JONES, is a 64 F who presents for the evaluation of abdominal pain and diarrhea Over the past year pt had been having nausea, LUQ pain and diarrhea. Her pain isachy and typically happening after eating a meal. She has not noticed any alleviating factors.She does not have any heartburn but takes Nexium daily. She becomes nauseous after eating as well. She has a hx of gastroparesis diagnosed about 20 years ago. Her diarrhea is random and not associated with pain. She does not ever have formed stools. She has up tp 4 bm per day that are soft. She notes that her daughter was diagnosed with celiac. SHe did have a celiac panel that was negative. She does not noticed any correlation with certain foods. Her last EGD and colonoscopy was about 5 years ago. She mentions having polyps in the past. [facility] Medical History Wears glasses Wears dentures Post-menopausal Depression Insulin dependent diabetes mellitus Arthritis High cholesterol Fatty liver Restless legs Back pain Dietary restriction History of diverticulitis Gastric reflux Non-smoker History of pain when walking History of echocardiogram History of stress test Septic shock Parkinson disease Hypertension Arachnoiditis Lupus Home Medications ?Medication ?Instructions ?Recorded ?Last Taken ?Type metformin 1,000 mg tablet 1,000 mg PO BID 12/25/21 Unk nown History propranolol 20 mg tablet 20 mg PO BID 12/25/21 08:00 History escitalopram oxalate 20 mg tablet 20 mg PO QDAY Unknown History (Lexapro) fentanyl 25 mcg/hr transdermal 1 patch transdermal Q72 H 08/11/24 10/06/24 History patch insulin degludec 100 unit/mL (3 70 unit subcut DAILY 0 08/11/24 Unknown History mL) subcutaneous pen (Tresiba FlexTouch U-100 insulin) meloxicam 7.5 mg tablet 7.5 mg PO QDAY 08/11/24 Unkn own History omeprazole 40 mg capsule,delayed 40 mg PO QDAY 5 Unknown History release semaglutide 1 mg/dose (4 mg/3 mL) 1 mg subcut WE 08/1109/22/24 History subcutaneous pen injector (Ozempic) insulin degludec 100 unit/mL (3 60 unit subcut QHS Unknown History mL) subcutaneous pen (Tresiba FlexTouch U-100 insulin) mirtazapine 30 mg tablet 30 mg PO QHS 10/04/24 Unknow n History rosuvastatin 5 mg tablet 5 mg PO QHS 10/04/24 Unknown History Allergy/AdvReac Type Severity Reaction Status Date / Time indomethacin (From Indocin) Allergy Rash Verified 10/06/24 14:20 indomethacin sodium (From Allergy Rash Verified 10/06/24 14:20 Indocin) Penicillins Allergy Rash Verified 10/06/24 14:20 amitriptyline AdvReac Intermediate hallucinati Verified 10/06/24 14:20 ons canagliflozin (From Invokana) AdvReac Mild UTI Verified 10/06/24 14:20 pioglitazone (From Actos) AdvReac Mild migraine Verified 10/06/24 14:20 clarithromycin (From Biaxin) AdvReac Diarrhea Verified 10/06/24 14:20 Family History Brother Heart disease Mother Osteoarthritis CAD (coronary artery disease) Hypertension Diabetes Breast cancer Father CVA (cerebral vascular accident) Colon cancer CAD (coronary artery disease) Surgical History History of esophagogastroduodenoscopy (EGD) Hx of colonoscopy Status post carpal tunnel release S/P left knee surgery H/O: hysterectomy S/P cholecystectomy History of back surgery Social History Smoking Status: Never smoker alcohol intake: never substance use type: does not use caffeine: No seatbelt use: always do you feel safe at home: Yes additional social history: disability- ROS Constitutional Constitutional: Denies fatigue, fever(s), poor appetite, weight gain or weight loss Gastrointestinal Gastrointestinal: Denies belching, bloating, change in bowel habits, change in stool character, chewing difficulty, coffee ground emesis, constipation, cramping, diarrhea, dyspepsia, dysphagia, early satiety, excessive flatus, fecalincontinence, heartburn, hematemesis, hematochezia, hemorrhoids, loose stools, melena, nausea, odynophagia, rectal bleeding, tenesmus, vomiting or weight changes Physical Exam Const alert, oriented x3, no apparent distress and healthy appearing General Appearance: cooperative GI normal to inspection, nondistended, normoactive bowel sounds, soft to palpation,non-tender and non-distended Percussion: normal to percussion Rectal Exam: deferred Assessment & Plan Assessment/Plan (1) Nausea: (2) RUQ pain: (3) Loose stools: PLAN: Plan Assessment and Plan Assessment and Plan (1) Loose stools: Status: Acute Plan: This is a 64 yo female pt here today for evaluation of LUQ pain, nausea and loose stools. Pt has had these symptoms for a year now. Celiac panel was normal.CBC and CMP normal. She will undergo EGD and colonoscopy. I have ordered stool testing to rue out infection, inflammation or EPI that could contribute to loosestools. For her abd pain, I prescribed dicyclomine 10 mg BID PRN. Will consider further work up pending results -colonoscopy and EGD -Stool testing -Start dicyclomine PRN -f/u in 3 months (2) RUQ pain: Status: Acute (3) Nausea: Status: Acute Orders: Orders ENTERIC PATHOGEN PANEL STOOL Today K58.9 - Irritable bowel syndrome, unspecified, R19.5 - Other fecal abnormalities Pancreatic Elastase, Fecal Today R19.5 - Other fecal abnormalities Stool Lactoferrin/WBC Today K58.9 - Irritable bowel syndrome, unspecified, R19.5 - Other fecal abnormalities Ova and Parasites 8623 Today K58.9 - Irritable bowel syndrome, unspecified, R19.5 - Other fecal abnormalities Giardia Lamblia, Stool EIA Today R19.5 - Other fecal abnormalities Calprotectin, Stool Today R19.5 - Other fecal abnormalities CDIFF (PCR) Today R19.5 - Other fecal abnormalities Medications: New dicyclomine 10 mg PO BID 20 caps 1RF 10/06/24 1434 <Electronically signed by Polo Mac DO> Cosigner Signature (if applicable): CC: Dr. Reed Vazquez MD; Polo Mac DO~ Signed [facility] Work Phone: [phone] 909-863104-23-2025 Consult note Author Chidi Bui [facility] Note Date/Time October 06, 2024 2:0 5pm [facility] Medical Records Department [address] [place] [id number] Pre-Anesthesia Evaluation 10/06/24 1405 MR#: [id number] Acct: [id number] Name: ROSEANNA JONES Rep #:[id number] : 1960 64 From: Chidi Bui MD PCP: Dr. Reed Vazquez MD Status:REG S DC Y Race: C Location: [place] [address] ASA Classification* ASA Classification ASA Classification: 3 Assessment & Plan Anesthesia* Anesthesia Assessment Anesthesia Assessment: Discussed sedation and/or anesthesia options, risks, benefits, and alternatives with patient/parents/legal guardian/POA. Questions invited. The patient/parents/legal guardian/POA seems to understand and agrees to proceedwith anesthesia plan. Reviewed the physical assessment, medical history, allergy history and patient home medications list prior to surgery/procedure/anesthetic and documented any changes. Performed airway and anesthesia risk assessments. Anesthesia Type Anesthesia Type: MAC Anesthesia Focused Assessment* Airway Assessment Mouth opens: >3 cm Mallampati Score: II Focused Labs Anesthesia Preop lab: CBC WBC 7.5 K/mm3 (4.4-11.0) 09/03/23 09:32 09/03/23 RBC 4.66 M/mm3 (4.2-5.4) 09/03/23 09:32 09/03/23 Hgb 14.1 g/dL (12.0-15.0) 09/03/23 09:32 09/03/23 Hct 43.9 % (37-47) 09/03/23 09:32 09/03/23 Plt Count 189 K/mm3 (150-450) 09/03/23 09:32 09/03/23 CHEMISTRY Potassium 4.0 mmol/L (3.5-5.1) 07/08/24 13:10 07/08/24 Sodium 137 mmol/L (136-145) 07/08/24 13:10 07/08/24 Magnesium 1.7 mg/dL (1.6-2.6) 11/19/21 11:50 11/19/21 BUN 11 mg/dL (7-18) 07/08/24 13:10 07/08/24 Creatinine 0.76 mg/dL (0.55-1.02) 07/08/24 13:10 07/08/24 Glucose 267 mg/dL (74-106) H 07/08/24 13:10 07/08/24 POC Glucose 156 mg/dL (70-110) H 04/25/21 15:59 04/25/21 TSH 2.81 uIU/mL (0.358-3.74) 09/03/23 09:32 COAG PT 13.6 SECONDS (11.7-14.9) 03/18/19 15:40 Pre-Assessment Diagnosis/Proposed Procedure Planned Operative Procedure(s): EGD/CSCOPE Anesthesia History 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 When Was Last Pacemaker Check QUESTION #4 FULL TEXT: You/Your Family Experience fever (hyperthermia) with Anesthesia Last Oral Intake Last Oral intake: Last Oral Intake NPO since Meds taken in AM with sips of water? 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 Female Yes 10/04/24 10:15 HX of Motion Sickness No 10/04/24 10:15 HX of N/V After Surgery No 10/04/24 10:15 Non-Smoker Yes 10/04/24 10:15 Duration of Surgery greater No 10/04/24 10:15 than 60 minutes Number of Risk Factors 2 10/04/24 10:15 PONV Score Moderate Risk 10/04/24 10:15 Height & Weight Height & Weight: Anesthesia: Height & Weight Height 5 ft 7 in 01/31/22 15:37 Respiratory Assessment Respiratory Assessment - gymnastic coach: Respiratory Tract Infection Hx - gymnastic coach Hx Respiratory Tract Infection No 10/04/24 10:15 STOP Sleep Apnea STOP Sleep Apnea - gymnastic coach: STOP Sleep Apnea - gymnastic coach Hx Hypertension Yes: CONTROLLED WITH MED 10/04/24 10:15 Hx Sleep Apnea No 10/04/24 10:15 CPAP Yes 04/24/21 20:32 BIPAP No 04/24/21 20:32 Do you snore loudly (louder No 10/04/24 10:15 than talking or can be heard Do you often feel tired/ No 10/04/24 10:15 fatigued/ sleepy during daytime? Has anyone observed you stop No 10/04/24 10:15 breathing during sleep? STOP Results Negative 10/04/24 10:15 QUESTION #5 FULL TEXT : Do you snore loudly (louder than talking or can be heard through closed doors)? 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 Specify any problems Hx of Preganancy in last 3 No 10/04/24 10:15 Months Nurse Filling Out Transfusion DSCHRIBER 10/04/24 10:15 & Questions: Date: 10/04/24 10/04/24 10:15 Time: 10:16 10/04/24 10:15 Patient unable to answer at this time (ie. confused, unrespo /Reproduction History /Reproductive History - gymnastic coach: /Reproductive Hx- gymnastic coach Hx Now No 10/04/24 10:15 Gestational Age (in weeks): EDC: Hx Hx Para Hx Section SAB No 10/04/24 10:15 Active Medications Active Medications: Current Medications Generic Name Dose Route Start Last Admin Trade Name Freq PRN Reason Stop Dose Admin Sodium Chloride 1,000 mls @ 15 mls/hr 10/06/24 14:05 IV .Q48H ROXY PFSH Medical History Wears glasses Wears dentures Post-menopausal Depression Insulin dependent diabetes mellitus Arthritis High cholesterol Fatty liver Restless legs Back pain Dietary restriction History of diverticulitis Gastric reflux Non-smoker History of pain when walking History of echocardiogram History of stress test Septic shock Parkinson disease Hypertension Arachnoiditis Lupus Home Medications ?Medication ?Instructions ?Recorded ?Last Taken ?Type metformin 1,000 mg tablet 1,000 mg PO BID 12/25/21 Unk nown History propranolol 20 mg tablet 20 mg PO BID 12/25/21 Unknow n History escitalopram oxalate 20 mg tablet 20 mg PO QDAY Unknown History (Lexapro) fentanyl 25 mcg/hr transdermal 1 patch transdermal Q72 H 08/11/24 Unknown History patch insulin degludec 100 unit/mL (3 70 unit subcut DAILY 0 08/11/24 Unknown History mL) subcutaneous pen (Tresiba FlexTouch U-100 insulin) meloxicam 7.5 mg tablet 7.5 mg PO QDAY 08/11/24 Unkn own History omeprazole 40 mg capsule,delayed 40 mg PO QDAY 5 Unknown History release semaglutide 1 mg/dose (4 mg/3 mL) 1 mg subcut WE 08/1109/22/24 History subcutaneous pen injector (Ozempic) insulin degludec 100 unit/mL (3 60 unit subcut QHS Unknown History mL) subcutaneous pen (Tresiba FlexTouch U-100 insulin) mirtazapine 30 mg tablet 30 mg PO QHS 10/04/24 Unknow n History rosuvastatin 5 mg tablet 5 mg PO QHS 10/04/24 Unknown History Allergy/AdvReac Type Severity Reaction Status Date / Time indomethacin (From Indocin) Allergy Rash Verified 10/04/24 10:11 indomethacin sodium (From Allergy Rash Verified 10/04/24 10:11 Indocin) Penicillins Allergy Rash Verified 10/04/24 10:11 amitriptyline AdvReac Intermediate hallucinati Verified 10/04/24 10:11 ons canagliflozin (From Invokana) AdvReac Mild UTI Verified 10/04/24 10:11 pioglitazone (From Actos) AdvReac Mild migraine Verified 10/04/24 10:11 clarithromycin (From Biaxin) AdvReac Diarrhea Verified 10/04/24 10:11 Family History Brother Heart disease Mother Osteoarthritis CAD (coronary artery disease) Hypertension Diabetes Breast cancer Father CVA (cerebral vascular accident) Colon cancer CAD (coronary artery disease) Surgical History History of esophagogastroduodenoscopy (EGD) Hx of colonoscopy Status post carpal tunnel release S/P left knee surgery H/O: hysterectomy S/P cholecystectomy History of back surgery Social History Smoking Status: Never smoker alcohol intake: never substance use type: does not use caffeine: No seatbelt use: always do you feel safe at home: Yes additional social history: disability- Review of Systems (Anesthesia) ROS Narrative System reviewed and no additional complaints, except as documented. 10/06/24 6085 <Electronically signed by Chidi Bui MD > Date _ Chidi Garciaignshirlene Signature: Date CC: ~ Signed [facility] Work Phone: [phone] 117-726604-23-2025 Procedure note [facility] Medical Records Department [address] [place] [address] Colonoscopy Report MR#: [id number] Acct: [id number] Name: ROSEANNA JONES Rep #:[id number] : 1960 64 From: Polo Mac DO PCP: Dr. Reed Vazquez MD Status:REG S DC Patient Name: Roseanna Jones Procedure Date: 10/06/2024 3:03 PM Date of : 1960 Age: 64 Procedure: Colonoscopy Indications: Generalized abdominal pain, Clinically significant diarrhea of unexplained origin Providers: Polo Mac DO Medicines: Monitored Anesthesia Care Patient Profile: This is a 64 year old female. Refer to note in patient chart for documentation of history and physical. Patient has symptoms of chronic abdominal distention, chronic epigastric abdominal pain and chronic dyspepsia. Last Colonoscopy: date unknown. Unable to locate last colonoscopy report. Complications: No immediate complications. Procedure: Pre-Anesthesia Assessment: - Prior to the procedure, a History and Physical was performed, and patient medications and allergies were reviewed. The patient is competent. The risks and benefits of the procedure and the sedation options and risks were discussed with the patient. All questions were answered and informed consent was obtained. Patient identification and proposed procedure were verified by the physician in the pre-procedure area. Mental Status Examination: alert and oriented. Airway Examination: normal oropharyngeal airway and neck mobility. Respiratory Examination: clear to auscultation. CV Examination: normal. Prophylactic Antibiotics: The patient does not require prophylactic antibiotics. Prior Anticoagulants: The patient has taken no anticoagulant or antiplatelet agents except for NSAID medication. ASA Grade Assessment: II - A patient with mild systemic disease. After reviewing the risks and benefits, the patient was deemed in satisfactory condition to undergo the procedure. The anesthesia plan was to use monitored anesthesia care (MAC). Immediately prior to administration of medications, the patient was re-assessed for adequacy to receive sedatives. The heart rate, respiratory rate, oxygen saturations, blood pressure, adequacy of pulmonary ventilation, and response to care were monitored throughout the procedure. The physical status of the patient was re-assessed after the procedure. After I obtained informed consent, the scope was passed under direct vision. Throughout the procedure, the patient's blood pressure, pulse, and oxygen saturations were monitored continuously. The Colonoscope was introduced through the anus and advanced to the cecum, identified by appendiceal orifice and ileocecal valve. The colonoscopy was performed without difficulty. The patient tolerated the procedure well. The quality of the bowel preparation was adequate. The ileocecal valve, appendiceal orifice, and rectum were photographed. Scope In: 3:07:24 PM Scope Withdrawal Time 0 hours 12 minutes 39 seconds Scope Out: 3:23:54 PM Total Procedure Duration Time 0 hours 16 minutes 30 seconds Findings: The perianal and digital rectal examinations were normal. A few small-mouthed diverticula were found in the sigmoid colon. An area of mildly congested mucosa was found in the sigmoid colon, in the transverse colon, at the hepatic flexure and in the ascending colon. Biopsies were taken with a cold forceps for histology. Verification of patient identification for the specimen was done. Estimated blood loss was minimal. The exam was otherwise without abnormality on direct and retroflexion views. Impression: - Diverticulosis in the sigmoid colon. - Congested mucosa in the sigmoid colon, in the transverse colon, at the hepatic flexure and in the ascending colon. Biopsied. - The examination was otherwise normal on direct and retroflexion views. Recommendation: - Discharge patient to home. - Resume previous diet. - Continue present medications. - Await pathology results. - Repeat colonoscopy for surveillance based on pathology results. - Return to GI office. Procedure Code(s): --- Professional --- 82285, Colonoscopy, flexible; with biopsy, single or multiple CPT copyright 2021 [employer]. All rights reserved. The codes documented in this report are preliminary and upon missile inspector review may be revised to meet current compliance requirements. Polo Mac DO 10/06/2024 3:35:20 PM This report has been signed electronically. Number of Addenda: 0 Note Initiated On: 10/06/2024 3:03 PM 10/06/24 1535 Date _ Polo Pierre Signature: Date (if indicated) CC: Dr. Reed Vazquez MD; Polo Mac DO ~ Date Dictated: 10/06/24 1503 Date Transcribed: Legislative Aide: RF Signed [facility]04-23-2025 Procedure note [facility] Medical Records Department [address] [place] [address] Operative Report - CC Letter MR#: [id number] Acct: [id number] Name: ROSEANNA JONES Rep #:[id number] : 1960 64 From: Polo Mac DO PCP: Dr. Reed Vazquez MD Status:REG S DC 10/06/2024 Reed Vazquez MD [address] [place] [address] Re : Colonoscopy procedure for Roseanna Jones Dear Dr. Vazquez This procedure was performed on Sunday, October 06, 2024. My impressions and recommendations are as follows: Impressions : - Diverticulosis in the sigmoid colon. - Congested mucosa in the sigmoid colon, in the transverse colon, at the hepatic flexure and in the ascending colon. Biopsied. - The examination was otherwise normal on direct and retroflexion views. Recommendations : - Discharge patient to home. - Resume previous diet. - Continue present medications. - Await pathology results. - Repeat colonoscopy for surveillance based on pathology results. - Return to GI office. My findings are described in the full procedure note, which is enclosed. If I can be of further assistance, please feel free to contact me at . Sincerely, Polo Mac DO 10/06/2024 3:35:20 PM This report has been signed electronically. 10/06/24 0445 Date _ Polo Bubba DO Jones Signature: Date (if indicated) CC: Dr. Reed Vazquez MD; Polo Mac DO ~ Date Dictated: 10/06/24 1503 Date Transcribed: Legislative Aide: RF Signed [facility]04-23-2025 Consult note [facility] Medical Records Department [address] [place] [address] Anesthesia Postop Eval I 10/06/24 1533 MR#: [id number] Acct: [id number] Name: ROSEANNA JONES Rep #:[id number] : 1960 64 From: Saman Claudio PCP: Dr. Reed Vazquez MD Status:REG S DC Y Race: C Location: [place] [address] Anesthesia: Postop Eval I Current Vital Signs Temperature: 97.4 F Pulse Rate: 86 Blood Pressure: 98/59 Respiratory Rate: 16 Pulse Ox: 94 Oxygen Delivery Method: Room Air Assessment Airway patent: Yes Spontaneous unlabored respirations: Yes Mental status: Awake and Calm nausea: No Vomiting: No Anesthesia Complication: No Fluid Hydration Crystalloid volume administer (ml): 600 Total IV fluid infused: 600 Progress Note Anesthesia document: Postop Eval 1 completed: Yes 10/06/24 1534 > Date _ Saman Jones Signature: Date CC: ~ Signed [facility]04-23-2025 Procedure note [facility] Medical Records Department [address] [place] [address] EGD Report MR#: [id number] Acct: [id number] Name: ROSEANNA JONES Rep #:[id number] : 1960 64 From: Polo Mac DO PCP: Dr. Reed Vazquez MD Status:REG S DC Patient Name: Roseanna Jones Procedure Date: 10/06/2024 2:32 PM Date of : 1960 Age: 64 Procedure: Upper GI endoscopy Indications: Epigastric abdominal pain, Functional Dyspepsia, Heartburn Providers: Polo Mac DO Medicines: Monitored Anesthesia Care Patient Profile: This is a 64 year old female. Refer to note in patient chart for documentation of history and physical. Patient has symptoms of chronic abdominal distention, chronic epigastric abdominal pain and chronic dyspepsia. Complications: No immediate complications. Procedure: Pre-Anesthesia Assessment: - Prior to the procedure, a History and Physical was performed, and patient medications and allergies were reviewed. The patient is competent. The risks and benefits of the procedure and the sedation options and risks were discussed with the patient. All questions were answered and informed consent was obtained. Patient identification and proposed procedure were verified by the physician in the pre-procedure area. Mental Status Examination: alert and oriented. Airway Examination: normal oropharyngeal airway and neck mobility. Respiratory Examination: clear to auscultation. CV Examination: normal. Prophylactic Antibiotics: The patient does not require prophylactic antibiotics. Prior Anticoagulants: The patient has taken no anticoagulant or antiplatelet agents except for NSAID medication. ASA Grade Assessment: II - A patient with mild systemic disease. After reviewing the risks and benefits, the patient was deemed in satisfactory condition to undergo the procedure. The anesthesia plan was to use monitored anesthesia care (MAC). Immediately prior to administration of medications, the patient was re-assessed for adequacy to receive sedatives. The heart rate, respiratory rate, oxygen saturations, blood pressure, adequacy of pulmonary ventilation, and response to care were monitored throughout the procedure. The physical status of the patient was re-assessed after the procedure. After obtaining informed consent, the endoscope was passed under direct vision. Throughout the procedure, the patient's blood pressure, pulse, and oxygen saturations were monitored continuously. The Colonoscope was introduced through the mouth, and advanced to the third part of the duodenum. Small bowel enteroscopy was deemed necessary. The upper GI endoscopy was accomplished with ease. The patient tolerated the procedure well. Scope In: 2:58:43 PM Scope Out: 3:03:42 PM Total Procedure Duration Time 0 hours 4 minutes 59 seconds Findings: Small (< 5 mm) varices were found in the lower third of the esophagus. They were 5 mm in largest diameter. Moderate portal hypertensive gastropathy was found in the entire examined stomach. Biopsies were taken with a cold forceps for histology. Verification of patient identification for the specimen was done. Estimated blood loss was minimal. Biopsies were taken with a cold forceps for Helicobacter pylori testing. Verification of patient identification for the specimen was done. Estimated blood loss was minimal. No gross lesions were noted in the entire examined duodenum. Biopsies were taken with a cold forceps for histology. Verification of patient identification for the specimen was done. Estimated blood loss was minimal. One non-bleeding superficial gastric ulcer with no stigmata of bleeding was found in the gastric antrum. The lesion was 3 mm in largest dimension. Biopsies were taken with a cold forceps for histology. Verification of patient identification for the specimen was done. Estimated blood loss was minimal. Impression: - Small (< 5 mm) esophageal varices. - Portal hypertensive gastropathy. Biopsied. - No gross lesions in the entire examined duodenum. Biopsied. Recommendation: - Discharge patient to home. - Resume previous diet. - Continue present medications. - Await pathology results. Procedure Code(s): --- Professional --- 14122, Small intestinal endoscopy, enteroscopy beyond second portion of duodenum, not including ileum; with biopsy, single or multiple CPT copyright 2021 [employer]. All rights reserved. The codes documented in this report are preliminary and upon missile inspector review may be revised to meet current compliance requirements. Polo Mac DO 10/06/2024 3:32:36 PM This report has been signed electronically. Number of Addenda: 0 Note Initiated On: 10/06/2024 2:32 PM 10/06/24 1532 Date _ Polo Pierre Signature: Date (if indicated) CC: Dr. Reed Vazquez MD; Polo Mac DO ~ Date Dictated: 10/06/24 1432 Date Transcribed: Legislative Aide: RF Signed [facility]04-23-2025 Procedure note [facility] Medical Records Department [address] [place] [address] Operative Report - CC Letter MR#: [id number] Acct: [id number] Name: ROSEANNA JONES Rep #:[id number] : 1960 64 From: Polo Mac DO PCP: Dr. Reed Vazquez MD Status:REG S DC 10/06/2024 Reed Vazquez MD [address] [place] [address] Re : Upper GI endoscopy procedure for Roseanna Jones Dear Dr. Vazquez This procedure was performed on Sunday, October 06, 2024. My impressions and recommendations are as follows: Impressions : - Small (< 5 mm) esophageal varices. - Portal hypertensive gastropathy. Biopsied. - No gross lesions in the entire examined duodenum. Biopsied. Recommendations : - Discharge patient to home. - Resume previous diet. - Continue present medications. - Await pathology results. My findings are described in the full procedure note, which is enclosed. If I can be of further assistance, please feel free to contact me at . Sincerely, Polo Mac DO 10/06/2024 3:32:36 PM This report has been signed electronically. 10/06/24 1532 Date _ Polo Mac DO Cosigner Signature: Date (if indicated) CC: Dr. Reed Vazquez MD; Polo Mac DO ~ Date Dictated: 10/06/24 1432 Date Transcribed: Legislative Aide: RF Signed [facility]04-23-2025 History and physical note [facility] Medical Records Department [address] [place] [address] History & Physical Exam 10/06/24 1431 MR#: [id number] Acct: [id number] Name: ROSEANNA JONES Rep #:[id number] : 1960 64 From: Polo Mac DO PCP: Dr. Reed Vazquez MD Status:REG S NE Location: [place] [address] HPI - General General Date of Admission: 10/06/24 Date of Service: 10/06/24 Chief Complaint: diarrhea HPI Narrative HPI HPI Chief Complaint: LUQ pain and diarrhea Details: ROSEANNA JONES, is a 64 F who presents for the evaluation of abdominal pain and diarrhea Over the past year pt had been having nausea, LUQ pain and diarrhea. Her pain isachy and typically happening after eating a meal. She has not noticed any alleviating factors.She does not have any heartburn but takes Nexium daily. She becomes nauseous after eating as well. She has a hx of gastroparesis diagnosed about 20 years ago. Her diarrhea is random and not associated with pain. She does not ever have formed stools. She has up tp 4 bm per day that are soft. She notes that her daughter was diagnosed with celiac. SHe did have a celiac panel that was negative. She does not noticed any correlation with certain foods. Her last EGD and colonoscopy was about 5 years ago. She mentions having polyps in the past. [facility] Medical History Wears glasses Wears dentures Post-menopausal Depression Insulin dependent diabetes mellitus Arthritis High cholesterol Fatty liver Restless legs Back pain Dietary restriction History of diverticulitis Gastric reflux Non-smoker History of pain when walking History of echocardiogram History of stress test Septic shock Parkinson disease Hypertension Arachnoiditis Lupus Home Medications ?Medication ?Instructions ?Recorded ?Last Taken ?Type metformin 1,000 mg tablet 1,000 mg PO BID 12/25/21 Unk nown History propranolol 20 mg tablet 20 mg PO BID 12/25/21 08:00 History escitalopram oxalate 20 mg tablet 20 mg PO QDAY Unknown History (Lexapro) fentanyl 25 mcg/hr transdermal 1 patch transdermal Q72 H 08/11/24 10/06/24 History patch insulin degludec 100 unit/mL (3 70 unit subcut DAILY 0 08/11/24 Unknown History mL) subcutaneous pen (Tresiba FlexTouch U-100 insulin) meloxicam 7.5 mg tablet 7.5 mg PO QDAY 08/11/24 Unkn own History omeprazole 40 mg capsule,delayed 40 mg PO QDAY 5 Unknown History release semaglutide 1 mg/dose (4 mg/3 mL) 1 mg subcut WE 08/1109/22/24 History subcutaneous pen injector (Ozempic) insulin degludec 100 unit/mL (3 60 unit subcut QHS Unknown History mL) subcutaneous pen (Tresiba FlexTouch U-100 insulin) mirtazapine 30 mg tablet 30 mg PO QHS 10/04/24 Unknow n History rosuvastatin 5 mg tablet 5 mg PO QHS 10/04/24 Unknown History Allergy/AdvReac Type Severity Reaction Status Date / Time indomethacin (From Indocin) Allergy Rash Verified 10/06/24 14:20 indomethacin sodium (From Allergy Rash Verified 10/06/24 14:20 Indocin) Penicillins Allergy Rash Verified 10/06/24 14:20 amitriptyline AdvReac Intermediate hallucinati Verified 10/06/24 14:20 ons canagliflozin (From Invokana) AdvReac Mild UTI Verified 10/06/24 14:20 pioglitazone (From Actos) AdvReac Mild migraine Verified 10/06/24 14:20 clarithromycin (From Biaxin) AdvReac Diarrhea Verified 10/06/24 14:20 Family History Brother Heart disease Mother Osteoarthritis CAD (coronary artery disease) Hypertension Diabetes Breast cancer Father CVA (cerebral vascular accident) Colon cancer CAD (coronary artery disease) Surgical History History of esophagogastroduodenoscopy (EGD) Hx of colonoscopy Status post carpal tunnel release S/P left knee surgery H/O: hysterectomy S/P cholecystectomy History of back surgery Social History Smoking Status: Never smoker alcohol intake: never substance use type: does not use caffeine: No seatbelt use: always do you feel safe at home: Yes additional social history: disability- ROS Constitutional Constitutional: Denies fatigue, fever(s), poor appetite, weight gain or weight loss Gastrointestinal Gastrointestinal: Denies belching, bloating, change in bowel habits, change in stool character, chewing difficulty, coffee ground emesis, constipation, cramping, diarrhea, dyspepsia, dysphagia, earlysatiety, excessive flatus, fecalincontinence, heartburn, hematemesis, hematochezia, hemorrhoids, loose stools, melena, nausea, odynophagia, rectal bleeding, tenesmus, vomiting or weight changes Physical Exam Const alert, oriented x3, no apparent distress and healthy appearing General Appearance: cooperative GI normal to inspection, nondistended, normoactive bowel sounds, soft to palpation,non-tender and non-distended Percussion: normal to percussion Rectal Exam: deferred Assessment & Plan Assessment/Plan (1) Nausea: (2) RUQ pain: (3) Loose stools: PLAN: Plan Assessment and Plan Assessment and Plan (1) Loose stools: Status: Acute Plan: This is a 64 yo female pt here today for evaluation of LUQ pain, nausea and loose stools. Pt has had these symptoms for a year now. Celiac panel was normal.CBC and CMP normal. She will undergo EGD and colonoscopy. I have ordered stool testing to rue out infection, inflammation or EPI that could contribute to loosestools. For her abd pain, I prescribed dicyclomine 10 mg BID PRN. Will consider further work up pending results -colonoscopy and EGD -Stool testing -Start dicyclomine PRN -f/u in 3 months (2) RUQ pain: Status: Acute (3) Nausea: Status: Acute Orders: Orders ENTERIC PATHOGEN PANEL STOOL Today K58.9 - Irritable bowel syndrome, unspecified, R19.5 - Other fecal abnormalities Pancreatic Elastase, Fecal Today R19.5 - Other fecal abnormalities Stool Lactoferrin/WBC Today K58.9 - Irritable bowel syndrome, unspecified, R19.5 - Other fecal abnormalities Ova and Parasites 8623 Today K58.9 - Irritable bowel syndrome, unspecified, R19.5 - Other fecal abnormalities Giardia Lamblia, Stool EIA Today R19.5 - Other fecal abnormalities Calprotectin, Stool Today R19.5 - Other fecal abnormalities CDIFF (PCR) Today R19.5 - Other fecal abnormalities Medications: New dicyclomine 10 mg PO BID 20 caps 1RF 10/06/24 1434 Cosigner Signature (if applicable): CC: Dr. Reed Vazquez MD; Polo Mac DO~ Signed [facility]04-23-2025 [facility] Medical Records Department [address] [place] [address] History Physical Exam 10/06/24 1431 MR#: [id number] Acct: [id number] Name: ROSEANNA JONES Rep #: [id number] : 1960 64 From: Polo Mac DO PCP: Dr. Reed Vazquez MD Status:[facility] Location: [place] [address] HPI - General General Date of Admission: 10/06/24 Date of Service: 10/06/24 Chief Complaint: diarrhea HPI Narrative HPI HPI Chief Complaint: LUQ pain and diarrhea Details: ROSEANNA JONES, is a 64 F who presents for the evaluation of abdominal pain and diarrhea Over the past year pt had been having nausea, LUQ pain and diarrhea. Her pain is achy and typically happening after eating a meal. She has not noticed any alleviating factors.She does not have any heartburn but takes Nexium daily. She becomes nauseous after eating as well. She has a hx of gastroparesis diagnosed about 20 years ago. Her diarrhea is random and not associated with pain. She does not ever have formed stools. She has up tp 4 bm per day that are soft. She notes that her daughter was diagnosed with celiac. SHe did have a celiac panel that was negative. She does not noticed any correlation with certain foods. Her last EGD and colonoscopy was about 5 years ago. She mentions having polyps in the past. [facility] Medical History Wears glasses Wears dentures Post-menopausal Depression Insulin dependent diabetes mellitus Arthritis High cholesterol Fatty liver Restless legs Back pain Dietary restriction History of diverticulitis Gastric reflux Non-smoker History of pain when walking History of echocardiogram History of stress test Septic shock Parkinson disease Hypertension Arachnoiditis Lupus Home Medications ???Medication ???Instructions ???Recorded ???Last Taken ???Type metformin 1,000 mg tablet 1,000 mg PO BID 12/25/21 Unknown H istory propranolol 20 mg tablet 20 mg PO BID 12/25/21 10/06/24 08: 00 History escitalopram oxalate 20 mg tablet 20 mg PO QDAY 08/11/24 Unknown Hi story (Lexapro) fentanyl 25 mcg/hr transdermal 1 patch transdermal Q72H 08/11/24 10/06/24 History patch insulin degludec 100 unit/mL (3 70 unit subcut DAILY 08/11/24 Unkn own History mL) subcutaneous pen (Tresiba FlexTouch U-100 insulin) meloxicam 7.5 mg tablet 7.5 mg PO QDAY 08/11/24 Unknown Hi story omeprazole 40 mg capsule,delayed 40 mg PO QDAY 08/11/24 Unknown His tory release semaglutide 1 mg/dose (4 mg/3 mL) 1 mg subcut WE 08/11/24 09/22/24 History subcutaneous pen injector (Ozempic) insulin degludec 100 unit/mL (3 60 unit subcut QHS 10/04/24 Unknow n History mL) subcutaneous pen (Tresiba FlexTouch U-100 insulin) mirtazapine 30 mg tablet 30 mg PO QHS 10/04/24 Unknown Hist ory rosuvastatin 5 mg tablet 5 mg PO QHS 10/04/24 Unknown Histo ry Allergy/AdvReac Type Severity Reaction Status Date / Time indomethacin (From Indocin) Allergy Rash Verified 10/06/24 14:20 indomethacin sodium (From Allergy Rash Verified 10/06/24 14:20 Indocin) Penicillins Allergy Rash Verified 10/06/24 14:20 amitriptyline AdvReac Intermediate hallucinati Verified 10/06/24 14:20 ons canagliflozin (From Invokana) AdvReac Mild UTI Verified 10/06/24 14:20 pioglitazone (From Actos) AdvReac Mild migraine Verified 10/06/24 14:20 clarithromycin (From Biaxin) AdvReac Diarrhea Verified 10/06/24 14:20 Family History Brother Heart disease Mother Osteoarthritis CAD (coronary artery disease) Hypertension Diabetes Breast cancer Father CVA (cerebral vascular accident) Colon cancer CAD (coronary artery disease) Surgical History History of esophagogastroduodenoscopy (EGD) Hx of colonoscopy Status post carpal tunnel release S/P left knee surgery H/O: hysterectomy S/P cholecystectomy History of back surgery Social History Smoking Status: Never smoker alcohol intake: never substance use type: does not use caffeine: No seatbelt use: always do you feel safe at home: Yes additional social history: disability- ROS Constitutional Constitutional: Denies fatigue, fever(s), poor appetite, weight gain or weight loss Gastrointestinal Gastrointestinal: Denies belching, bloating, change in bowel habits, change in stool character, chewing difficulty, coffee ground emesis, constipation, cramping, diarrhea, dyspepsia, dysphagia, early satiety, excessive flatus, fecal incontinence, heartburn, hematemesis, hematochezia, hemorrhoids, loose stools, melena, nausea, odynophagia, rectal bleeding, tenesmus, vomiting or weight changes (more content not included)...[facility]04-23-2025 Consult note [facility] Medical Records Department [address] [place] [address] Pre-Anesthesia Evaluation 10/06/24 1405 MR#: [id number] Acct: [id number] Name: ROSEANNA JONES Rep #:[id number] : 1960 64 From: Chidi Bui MD PCP: Dr. Reed Vazquez MD Status:REG S DC Y Race: C Location: [place] [address] ASA Classification* ASA Classification ASA Classification: 3 Assessment & Plan Anesthesia* Anesthesia Assessment Anesthesia Assessment: Discussed sedation and/or anesthesia options, risks, benefits, and alternatives with patient/parents/legal guardian/POA. Questions invited. The patient/parents/legal guardian/POA seems to understand and agrees to proceedwith anesthesia plan. Reviewed the physical assessment, medical history, allergy history and patient home medications list prior to surgery/procedure/anesthetic and documented any changes. Performed airway and anesthesia risk assessments. Anesthesia Type Anesthesia Type: MAC Anesthesia Focused Assessment* Airway Assessment Mouth opens: >3 cm Mallampati Score: II Focused Labs Anesthesia Preop lab: CBC WBC 7.5 K/mm3 (4.4-11.0) 09/03/23 09:32 09/03/23 RBC 4.66 M/mm3 (4.2-5.4) 09/03/23 09:32 09/03/23 Hgb 14.1 g/dL (12.0-15.0) 09/03/23 09:32 09/03/23 Hct 43.9 % (37-47) 09/03/23 09:32 09/03/23 Plt Count 189 K/mm3 (150-450) 09/03/23 09:32 09/03/23 CHEMISTRY Potassium 4.0 mmol/L (3.5-5.1) 07/08/24 13:10 07/08/24 Sodium 137 mmol/L (136-145) 07/08/24 13:10 07/08/24 Magnesium 1.7 mg/dL (1.6-2.6) 11/19/21 11:50 11/19/21 BUN 11 mg/dL (7-18) 07/08/24 13:10 07/08/24 Creatinine 0.76 mg/dL (0.55-1.02) 07/08/24 13:10 07/08/24 Glucose 267 mg/dL (74-106) H 07/08/24 13:10 07/08/24 POC Glucose 156 mg/dL (70-110) H 04/25/21 15:59 04/25/21 TSH 2.81 uIU/mL (0.358-3.74) 09/03/23 09:32 COAG PT 13.6 SECONDS (11.7-14.9) 03/18/19 15:40 Pre-Assessment Diagnosis/Proposed Procedure Planned Operative Procedure(s): EGD/CSCOPE Anesthesia History 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 When Was Last Pacemaker Check QUESTION #4 FULL TEXT: You/Your Family Experience fever (hyperthermia) with Anesthesia Last Oral Intake Last Oral intake: Last Oral Intake NPO since Meds taken in AM with sips of water? 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 Female Yes 10/04/24 10:15 HX of Motion Sickness No 10/04/24 10:15 HX of N/V After Surgery No 10/04/24 10:15 Non-Smoker Yes 10/04/24 10:15 Duration of Surgery greater No 10/04/24 10:15 than 60 minutes Number of Risk Factors 2 10/04/24 10:15 PONV Score Moderate Risk 10/04/24 10:15 Height & Weight Height & Weight: Anesthesia: Height & Weight Height 5 ft 7 in 01/31/22 15:37 Respiratory Assessment Respiratory Assessment - gymnastic coach: Respiratory Tract Infection Hx - gymnastic coach Hx Respiratory Tract Infection No 10/04/24 10:15 STOP Sleep Apnea STOP Sleep Apnea - gymnastic coach: STOP Sleep Apnea - gymnastic coach Hx Hypertension Yes: CONTROLLED WITH MED 10/04/24 10:15 Hx Sleep Apnea No 10/04/24 10:15 CPAP Yes 04/24/21 20:32 BIPAP No 04/24/21 20:32 Do you snore loudly (louder No 10/04/24 10:15 than talking or can be heard Do you often feel tired/ No 10/04/24 10:15 fatigued/ sleepy during daytime? Has anyone observed you stop No 10/04/24 10:15 breathing during sleep? STOP Results Negative 10/04/24 10:15 QUESTION #5 FULL TEXT : Do you snore loudly (louder than talking or can be heard through closeddoors)? 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 Specify any problems Hx of Preganancy in last 3 No 10/04/24 10:15 Months Nurse Filling Out Transfusion DSCHRIBER 10/04/24 10:15 & Questions: Date: 10/04/24 10/04/24 10:15 Time: 10:16 10/04/24 10:15 Patient unable to answer at this time (ie. confused, unrespo /Reproduction History /Reproductive History - gymnastic coach: /Reproductive Hx- gymnastic coach Hx Now No 10/04/24 10:15 Gestational Age (in weeks): EDC: Hx Hx Para Hx Section SAB No 10/04/24 10:15 Active Medications Active Medications: Current Medications Generic Name Dose Route Start Last Admin Trade Name Freq PRN Reason Stop Dose Admin Sodium Chloride 1,000 mls @ 15 mls/hr 10/06/24 14:05 IV .Q48H ROXY PFSH Medical History Wears glasses Wears dentures Post-menopausal Depression Insulin dependent diabetes mellitus Arthritis High cholesterol Fatty liver Restless legs Back pain Dietary restriction History of diverticulitis Gastric reflux Non-smoker History of pain when walking History of echocardiogram History of stress test Septic shock Parkinson disease Hypertension Arachnoiditis Lupus Home Medications ?Medication ?Instructions ?Recorded ?Last Taken ?Type metformin 1,000 mg tablet 1,000 mg PO BID 12/25/21 Unk nown History propranolol 20 mg tablet 20 mg PO BID 12/25/21 Unknow n History escitalopram oxalate 20 mg tablet 20 mg PO QDAY Unknown History (Lexapro) fentanyl 25 mcg/hr transdermal 1 patch transdermal Q72 H 08/11/24 Unknown History patch insulin degludec 100 unit/mL (3 70 unit subcut DAILY 0 08/11/24 Unknown History mL) subcutaneous pen (Tresiba FlexTouch U-100 insulin) meloxicam 7.5 mg tablet 7.5 mg PO QDAY 08/11/24 Unkn own History omeprazole 40 mg capsule,delayed 40 mg PO QDAY 5 Unknown History release semaglutide 1 mg/dose (4 mg/3 mL) 1 mg subcut WE 08/1109/22/24 History subcutaneous pen injector (Ozempic) insulin degludec 100 unit/mL (3 60 unit subcut QHS Unknown History mL) subcutaneous pen (Tresiba FlexTouch U-100 insulin) mirtazapine 30 mg tablet 30 mg PO QHS 10/04/24 Unknow n History rosuvastatin 5 mg tablet 5 mg PO QHS 10/04/24 Unknown History Allergy/AdvReac Type Severity Reaction Status Date / Time indomethacin (From Indocin) Allergy Rash Verified 10/04/24 10:11 indomethacin sodium (From Allergy Rash Verified 10/04/24 10:11 Indocin) Penicillins Allergy Rash Verified 10/04/24 10:11 amitriptyline AdvReac Intermediate hallucinati Verified 10/04/24 10:11 ons canagliflozin (From Invokana) AdvReac Mild UTI Verified 10/04/24 10:11 pioglitazone (From Actos) AdvReac Mild migraine Verified 10/04/24 10:11 clarithromycin (From Biaxin) AdvReac Diarrhea Verified 10/04/24 10:11 Family History Brother Heart disease Mother Osteoarthritis CAD (coronary artery disease) Hypertension Diabetes Breast cancer Father CVA (cerebral vascular accident) Colon cancer CAD (coronary artery disease) Surgical History History of esophagogastroduodenoscopy (EGD) Hx of colonoscopy Status post carpal tunnel release S/P left knee surgery H/O: hysterectomy S/P cholecystectomy History of back surgery Social History Smoking Status: Never smoker alcohol intake: never substance use type: does not use caffeine: No seatbelt use: always do you feel safe at home: Yes additional social history: disability- Review of Systems (Anesthesia) ROS Narrative System reviewed and no additional complaints, except as documented. 10/06/24 1405 > Date _ Chidi Jones Signature: Date CC: ~ Signed [facility]04-01-2025 Progress note* Result Encounter Note - Katty Steiner APRN.CNP - 09/14/2024 8:52 PM EDT UDS CONSISTENT [facility]04-01-2025 Miscellaneous Notes* Result Encounter Note - Katty Steiner APRN.CNP - 09/14/2024 8:52 PM EDT UDS CONSISTENT [facility] History of Present illness Narrative* Alee Espitia, RT(R) - 09/09/2024 2:20 PM EDT Radiology Service Progress Note PATIENT NAME: Roseanna Jones DATE OF SERVICE: September 09, 2024 TIME: 2:28 PM PATIENT IDENTITY VERIFICATION COMPLETED USING TWO (2) IDENTIFIERS: Name and Date of confirmedby patient verbally. FALL SCREENING: Has the patient had 2 falls in the last year or 1 fall with injury or currently using an Ambulatory Assistive Device (Walker, Cane, Wheelchair, Crutches, etc.)? No PATIENT GENDER DATA: Assigned female at . status: : No status:NO. PATIENT RELEVANT IMPLANT DATA REVIEWED: Not Applicable PATIENT PRESENTS WITH AN IMPLANTABLE OR ATTACHED TAPE DUPLICATOR: No RADIOLOGY DEPARTMENT: General X-ray: Exam(s) Completed: Spine X-Ray(s): Cervical AP / LAT / OBL PERIPHERAL IV DATA: Not applicable SIGNED BY: RT Evens(R) September 09, 2024 2:28 PM documented in [facility]Reg[facility]03-27-2025 NoteHNO ID: [id number] Author: ALEE ESPITIA RT(R) Service: Radiology Author Type: Technologist Type: Progress Notes Filed: 09/09/2024 14:29 Note Text: Radiology Service Progress Note PATIENT NAME: Roseanna Jones DATE OF SERVICE: September 09, 2024 TIME: 2:28 PM PATIENT IDENTITY VERIFICATION COMPLETED USING TWO (2) IDENTIFIERS: Name and Date of confirmed by patient verbally. FALL SCREENING: Has the patient had 2 falls in the last year or 1 fall with injury or currently using an Ambulatory Assistive Device (Walker, Cane, Wheelchair, Crutches, etc.)? No PATIENT GENDER DATA: Assigned female at . status: : No status: NO. PATIENT RELEVANT IMPLANT DATA REVIEWED: Not Applicable PATIENT PRESENTS WITH AN IMPLANTABLE OR ATTACHED TAPE DUPLICATOR: No RADIOLOGY DEPARTMENT: General X-ray: Exam(s) Completed: Spine X-Ray(s): Cervical AP / LAT / OBL PERIPHERAL IV DATA: Not applicable SIGNED BY: RT Evens(R) September 09, 2024 2:28 PM[facility] Instructions* Patient Instructions* Katty Steiner, CASEY.MACHINE SPECIALIST - 09/09/2024 1:59 PM EDT Despite its legality, THC containing products and CBD products that may contain THC are not to be used while being prescribed pain medications. If your drug screen contains any THC your medication will be discontinued. Ordered cervical xr Ordered PT for cervical area-pt is aware that PT must be completed prior to an MRI without contrastbeing approved Continue Gabapentin Continue to follow-up with Dr. Mcbride(At [facility]-Lupus/[facility]) - every 3-6 months. pt needs to make an appt Continue to follow-up to PCP (Dr. Randhawa)- gastroparesis. Continue to follow-up with Dr. Butler (neurologist) Continue Fentanyl 25 mcg patches F/u Dr. Goncalves as needed(she is declining a SCS) A prescription for narcan (naloxone) has been offered to the patient. Reports having at home. The pain management agreement was reviewed with the patient. The patient is aware of the risks/benefits of the medicatiion, potential for addiction/overdose, and how to safely store and dispose of the medication(s). She will sign the pain agreement the next time she comes to the office. She was started on this medication and has been maintained on it by Dr Marley and [employer] working with her. She is compliant with the pain management agreement and there have been no signs of medication misuse, abuse or diversion. Follow-up in 2 months Katty Steiner APRN.CNP documented in this encounterReg[facility] Center03-27-2025 History of Present illness Narrative* Katty Steiner APRN.CNP - 09/09/2024 1:30 PM EDT Chief Complaint: Pain History of Present Illness: Roseanna Jones is a 64 year old year old female being seen at [facility] for a evaluation and/or management of her chronic pain. Roseanna Jones last had a on 07/13/24. Since the last visit her pain level has remained stable. She reports an increase in cervical pain(Denies trauma). She is requesting an xr and PT. VAS: 7/10 Pain Location: back, neck, leg, arms Radiation: down left leg Character: aching, burning Numbness/tingling: toes left foot and hand Burning: left foot Weakness: denies Falls: denies Worsening factors: walking, standing, bending, activity Relieving factors: heat, ice and rest Patient denies any bowel or bladder dysfunction. Since the last office visit the patients medical history has not changed. The patient denies any new diagnoses, hospital visits or ER visits. The patient is currently prescribed Fentanyl Patches and gabapentin from our office. The Fentanyl Patch is located on the right side of her lower back(witnessed). The medications are effective. The patient denies nausea, vomiting, constipation,rashes, drowsiness,weight gain, weight loss,dizziness,and fatigue. PDMP website checked and validated. The [place]AR[place] report has been reviewed and is consistent with the patients medical history and medication intake. Last Opioid agreement effective date: 09/09/2024 Last UDS: Reviewed - No inconsistencies noted. last uds 07/11/23------consistent(+)ETOH Hx of DM manuel Last uds 11/20/23-----consistent manuel [facility] Urine Drug Screen Summary Report Date Value Ref Range Status 11/20/2023 FINAL Final Comment: Gabapentin, MS, Ur RFX ToxAssure Flex 23, Ur Test Result Flag Units Drug Present Fentanyl 26 ng/mg creat Norfentanyl 15 ng/mg creat Source of fentanyl is a scheduled prescription medication, including IV, patch, and transmucosal formulations. Norfentanyl is an expected metabolite of fentanyl. Gabapentin PRESENT Test Result Flag Units Ref Range Creatinine 111 mg/dL >=20 Declared Medications: Medication list was not provided. For clinical consultation, please call . [facility] and Benzo Confirm Urine Panel: No results found for: UQCANN, UQBNZL, MNC4CEI, UQAMPH, UQMAMP, UQBUPRE, UQNORBUP, UQMTHD, UQEDDP, UQTRAM, UQDTRM, UQFNTL, UQNFTL, UQCODE, UQMORP, UQDCDN, UQHCOD, UQOXYC, UQHMOR, UQOXYM, UQCREA, UQPH, UQSPGR, UQOXID, UQSPQ Chronic Pain Functional Assessment Tools Pain Disability Index: 07/13/2024 09/09/2024 Pain Disability Index Family/Home Responsibilities: This category includes chores or duties performed around the house (e.g. yard work), errands or favors for other family members (e.g. driving the children to school) 7 -- Recreation: This category includes hobbies, sports, and other similar leisure time activities 7 8 Social Activity: This category refers to activities which involve participation with friends and acquaintances, other than family members. It includes parties, theater, concerts, dinning out, and other social functions 7 5 Occupation: This category refers to activities that are a part of or directly related to ones' job.This includes non-paying jobs as well, such as that of a housewife or volunteer worker 7 10 Total disability Sexual Behavior: This category refers to the frequency and quality of one's sex life 7 0 No disability Self Care: This category includes activities which involve personal maintenance and independent daily living (e.g. taking a shower, driving, getting dress, etc) 7 0 No disability Life Support Activity: This category refers to basic-life supporting behaviors such as eating, sleeping, and breathing 7 0 No disability PDI Score 49 Pain Enjoyment of Life and General Activity Scale (0-10): PEG: A Three-Item Scale Assessing Pain Intensity and Interference What number best describes your pain on average in the past week?: 8 (09/09/2024 1:00 PM) What number best describes how, during the past week, pain has interfered with your enjoyment of life?: 8 (09/09/2024 1:00 PM) What number best describes how, during the past week, pain has interfered with your general activity?: 8 (09/09/2024 1:00 PM) SOAPP: SOAPP QUESTIONS How often do you have mood swings?: 0 - Never (09/09/2024 1:33 PM) How often do you smoke a cigarette within an hour after you wake up?: 0 - Never (09/09/2024 1:33 PM) How often have you taken medication other than the way it was prescribed?: 0 - Never (09/09/2024 1:33 PM) How often have you used illegal drugs (for example, marijuana, cocaine, etc.) in the past five years?: 0 - Never (09/09/2024 1:33 PM) How often, in your lifetime, have you had legal problems or been arrested?: 0 - Never (09/09/2024 1:33 PM) Sum of Questions (> or = 7 is positive): 0 (09/09/2024 1:33 PM) ROS: See HPI PAST MEDICAL HISTORY Diagnosis Date Abdominal pain, epigastric Abdominal pain, epigastric Abdominal pain, generalized Abdominal pain, right upper quadrant Acute gastritis without mention of hemorrhage Arachnoiditis Benign neoplasm of colon Benign neoplasm of duodenum, jejunum, and ileum Degeneration of intervertebral disc, site unspecified Depressive disorder, not elsewhere classified Diabetes (HCC) Diarrhea Diverticulitis of colon (without mention of hemorrhage)(562.11) Esophageal reflux Essential hypertension, malignant Headache(784.0) Hemorrhage of gastrointestinal tract, unspecified Internal hemorrhoids without mention of complication Nonorganic sleep disorder, unspecified Obstructive sleep apnea (adult) (pediatric) Other and unspecified hyperlipidemia Paralysis agitans (HCC) Parkinson's Disease Parkinson disease (HCC) PMH - PAST MEDICAL HISTORY OF glucose intolerant PAST SURGICAL HISTORY Procedure Laterality Date ARTHROSCOPY KNEE DIAGNOSTIC W/WO SYNOVIAL BX SPX left knee-reset patella COLONOSCOPY FLX DX W/COLLJ SPEC WHEN PFRMD 04/25/2006 Colonoscopy COLONOSCOPY FLX DX W/COLLJ SPEC WHEN PFRMD 09/20/2002 Colonoscopy COLONOSCOPY FLX DX W/COLLJ SPEC WHEN PFRMD 06/07/2015 Colonoscopy EGD TRANSORAL BIOPSY SINGLE/MULTIPLE 07/06/2009 ESOPHAGOGASTRODUODENOSCOPY TRANSORAL DIAGNOSTIC 04/25/2006 EGD ESOPHAGOGASTRODUODENOSCOPY TRANSORAL DIAGNOSTIC 09/20/2002 EGD ESOPHAGOGASTRODUODENOSCOPY TRANSORAL DIAGNOSTIC 06/07/2015 EGD LAPAROSCOPY SURG CHOLECYSTECTOMY 06/16/2000 Cholecystectomy, lap PAST SURGICAL HISTORY OF 06/16/1989 L-5, S-1 back surgery PAST SURGICAL HISTORY OF carpal tunnel PAST SURGICAL HISTORY OF Left 2019 IT Band Release SIGMOIDOSCOPY FLX DX W/COLLJ SPEC BR/WA IF PFRMD 07/06/2009 STEREOTACTIC CORE BIOPSY 04/11/2006 RIGHT BREAST BIOPSY TOTAL ABDOMINAL HYSTERECT W/WO RMVL TUBE OVARY 06/16/1994 Hysterectomy, JUANY FAMILY HISTORY Problem Relation Age of Onset Cancer Mother breast Diabetes Mother Heart Mother Heart Father Colon Cancer Father dx in his early forties Social History Tobacco Use Smoking status: Never Smokeless tobacco: Never Substance Use Topics Alcohol use: No Drug use: No Allergies: Acetazolamide Other: See Comments Pioglitazone Other: See Comments Amitriptyline Other: See Comments Biaxin [Clarithromy* Indocin [Indomethac* Penicillins Canagliflozin Other: See Comments Current Outpatient Medications Medication Sig dicyclomine (BENTYL) 10 mg capsule Take 1 capsule by mouth every 12 hours. TRESIBA FLEXTOUCH U-100 100 unit/mL (3 mL) injection pen insulin lispro (HUMALOG KWIKPEN) 100 unit/mL INJECT 45 units before each meal gabapentin (NEURONTIN) 600 mg tablet Take 1 tablet by mouth three times a day for 30 days. fentaNYL (DURAGESIC) 25 mcg/hr Apply 1 Patch as directed every 72 hours for 30 days. As directed. Patient should start on August 26, 2024. omeprazole (PRILOSEC) 40 mg capsule Take 40 mg by mouth once daily. meloxicam (MOBIC) 7.5 mg tablet Take 1 tablet by mouth every afternoon. naloxone 4 mg/actuation nasal spray (NARCAN) Use 1 spray in one nostril as needed for overdose. Mayrepeat every 2 to 3 min in alternating nostrils until medical assistance is available TRULICITY 1.5 mg/0.5 mL pen injector inject 1 (ONE) pen (1.5mg) SUBCUTANEOUSLY EVERY WEEK fentaNYL (DURAGESIC) 25 mcg/hr Apply 1 Patch as directed every 72 hours for 30 days. As directed. Patient should start on July 27, 2024. fentaNYL (DURAGESIC) 25 mcg/hr Apply 1 Patch as directed every 72 hours for 30 days. As directed. Patient should start on May 19, 2024. ibuprofen (MOTRIN) 600 mg tablet TAKE 1 TABLET BY MOUTH THREE TIMES DAILY for 5 days (Patient not taking: Reported on 09/09/2024) glimepiride (AMARYL) 4 mg tablet Take 4 mg by mouth every morning. (Patient not taking: Reported on09/09/2024) BIPAP (Patient not taking: Reported on 09/09/2024) No current facility-administered medications for this visit. PHYSICAL EXAMINATION: GENERAL: Healthy, alert, no distress, cooperative SKIN: Skin color, texture, turgor normal. No rashes or lesions. HEENT: PERRL, EOMI, and normal dentition Musculoskeletal: Examination of the cervical spine is largely unremarkable. Inspection of the spine reveals no scars, curvature or abnormalities. Cervical range of motion is moderately restricted in all planes throughout. There is mild tenderness upon palpation of the cervical spine. Spurling's test is positive. There is tightness noted in the paraspinal musculature/trapezius. Muscle strength of the upper extemities is +5/5 bilaterally. Hand grasp bilaterally is equal. Sensation in the upper extremities is intact. +5/5 motor strength on the right leg and +4/5 motor strength on the left leg. Negative SLR signs onthe right and positive on the left. Sensory is intact to light touch in all dermatomes. Diminished sensation in the left leg at all dermatomes compared to the right. Negative foot drop noted bilaterally. Patient has SLR of about 50 degrees on the left and 80 degrees on the right. Negative Tony's test on the right and positive Tony's test on the left. Pt declines to bend over. Tenderness at L4-5midline paraspinal muscle, L>R. Toe and heel walking are normal. Slightly off balance. There is a well healed lumbar scar. There is no peripheral edema noted. ASSESSMENT: Patient is stable. Chronic pain is persistent. Medications are helping Roseanna Jones to have an improved quality of life. Patient compliance with Opioid Contract: patient is compliant Encounter Diagnosis ICD-10-CM 1. Encounter for long-term opiate analgesic use Z79.891 BENZO CONFIRM, URINE QUANTITATIVE TOXICOLOGY PANEL, URINE 2. Chronic cervical pain M54.2 XR CERV OTHER 4V AP/LAT/OBL G89.29 CONSULT TO PHYSICAL THERAPY 3. Myofascial pain syndrome M79.18 4. Encounter for long-term (current) use of medications Z79.899 PLAN: The patient understands the goal of our treatment is a reduction in pain and/or an improved level of functioning with activities of daily living. If at any time the patient does not feel the medications are helping them to achieve these goals, the medications may be discontinued. The patient reports a reduction in pain and/or an improved level of functioning with activities of daily living, denies any significant adverse effects, is compliant with the pain management agreement and there are no signs of medication misuse, abuse or diversion; therefore, the medications will be continued. Despite its legality, THC containing products and CBD products that may contain THC are not to be used while being prescribed pain medications. If your drug screen contains any THC your medication will be discontinued. Ordered cervical xr Ordered PT for cervical area-pt is aware that PT must be completed prior to an MRI without contrastbeing approved Continue Gabapentin Continue to follow-up with Dr. Mcbride(At [facility]) - every 3-6 months. pt needs to make an appt Continue to follow-up to PCP (Dr. Randhawa)- gastroparesis. Continue to follow-up with Dr. Butler (neurologist) Continue Fentanyl 25 mcg patches F/u Dr. Goncalves as needed(she is declining a SCS) A prescription for narcan (naloxone) has been offered to the patient. Reports having at home. The pain management agreement was reviewed with the patient. The patient is aware of the risks/benefits of the medicatiion, potential for addiction/overdose, and how to safely store and dispose of the medication(s). She will sign the pain agreement the next time she comes to the office. She was started on this medication and has been maintained on it by Dr Marley and [employer] working with her. She is compliant with the pain management agreement and there have been no signs of medication misuse, abuse or diversion. Follow-up in 2 months Katty Steiner APRN.CNP [facility]25 NoteHNO ID: [id number] Author: KATTY STEINER APRN.CNP Service: ? Author Type: Nurse Practitioner Type: Progress Notes Filed: 09/09/2024 14:02 Note Text: Chief Complaint: Pain History of Present Illness: Roseanna Jones is a 64 year old year old female being seen at [facility] for a evaluation and/or management of her chronic pain. Roseanna Jones last had a on 07/13/24. Since the last visit her pain level has remained stable. She reports an increase in cervical pain(Denies trauma). She is requesting an xr and PT. VAS: 7/10 Pain Location: back, neck, leg, arms Radiation: down left leg Character: aching, burning Numbness/tingling: toes left foot and hand Burning: left foot Weakness: denies Falls: denies Worsening factors: walking, standing, bending, activity Relieving factors: heat, ice and rest Patient denies any bowel or bladder dysfunction. Since the last office visit the patients medical history has not changed. The patient denies any new diagnoses, hospital visits or ER visits. The patient is currently prescribed Fentanyl Patches and gabapentin from our office. The Fentanyl Patch is located on the right side of her lower back(witnessed). The medications are effective. The patient denies nausea, vomiting, constipation,rashes, drowsiness,weight gain, weight loss,dizziness,and fatigue. PDMP website checked and validated. The OARRS report has been reviewed and is consistent with the patients medical history and medication intake. Last Opioid agreement effective date: 09/09/2024 Last UDS: Reviewed - No inconsistencies noted. last uds 07/11/23------consistent(+)ETOH Hx of DM manuel Last uds 11/20/23-----consistent manuel [facility] Urine Drug Screen Summary Report Date Value Ref Range Status 11/20/2023 FINAL Final Comment: Gabapentin, MS, Ur RFX ToxAssure Flex 23, Ur Test Result Flag Units Drug Present Fentanyl 26 ng/mg creat Norfentanyl 15 ng/mg creat Source of fentanyl is a scheduled prescription medication, including IV, patch, and transmucosal formulations. Norfentanyl is an expected metabolite of fentanyl. Gabapentin PRESENT Test Result Flag Units Ref Range Creatinine 111 mg/dL >=20 Declared Medications: Medication list was not provided. For clinical consultation, please call . [facility] Urine Drug Screen and Benzo Confirm Urine Panel: No results found for: UQCANN, UQBNZL, [id number], UQAMPH, UQMAMP, UQBUPRE, UQNORBUP, UQMTHD, UQEDDP, UQTRAM, UQDTRM, UQFNTL, UQNFTL, UQCODE, UQMORP, UQDCDN, UQHCOD, UQOXYC, UQHMOR, UQOXYM, UQCREA, UQPH, UQSPGR, UQOXID, UQSPQ Chronic Pain Functional Assessment Tools Pain Disability Index: 07/13/2024 09/09/2024 Pain Disability Index Family/Home Responsibilities: This category includes chores or duties performed around the house (e.g. yard work), errands or favors for other family members (e.g. driving the children to school) 7 -- Recreation: This category includes hobbies, sports, and other similar leisure time activities 7 8 Social Activity: This category refers to activities which involve participation with friends and acquaintances, other than family members. It includes parties, theater, concerts, dinning out, and other social functions 7 5 Occupation: This category refers to activities that are a part of or directly related to ones' job. This includes non-paying jobs as well, such as that of a housewife or volunteer worker 7 10 Total disability Sexual Behavior: This category refers to the frequency and quality of one's sex life 7 0 No disability Self Care: This category includes activities which involve personal maintenance and independent daily living (e.g. taking a shower, driving, getting dress, etc) 7 0 No disability Life Support Activity: This category refers to basic-life supporting behaviors such as eating, sleeping, and breathing 7 0 No disability PDI Score 49 Pain Enjoyment of Life and General Activity Scale (0-10): PEG: A Three-Item Scale Assessing Pain Intensity and Interference What number best describes your pain on average in the past week?: 8 (09/09/2024 1:00 PM) What number best describes how, during the past week, pain has interfered with your enjoyment of life?: 8 (09/09/2024 1:00 PM) What number best describes how, during the past week, pain has interfered with your general activity?: 8 (09/09/2024 1:00 (more content not included)...[facility]02-26-2025 Evaluation note* Diagnosis Onset Date Resolution Status Admit Date Loose stools acute July 12:37pm Nausea acute August 11, 2024 12:37pm RUQ pain acute August 11, 2024 12:37pm Loose stools acute October 06, 2024 1:56pm Nausea acute October 06 1:56pm RUQ pain acute October 06 1:56pm [facility] Work Phone: [phone]) 797-410701-28-2025 Instructions* Patient Instructions* Katty Steiner APRN.MACHINE SPECIALIST - 07/13/2024 3:02 PM EST Despite its legality, THC containing products and CBD products that may contain THC are not to be used while being prescribed pain medications. If your drug screen contains any THC your medication will be discontinued. Continue Gabapentin Continue to follow-up with Dr. Mcbride(At [facility]) - every 3-6 months. pt needs to make an appt Continue to follow-up to PCP (Dr. Randhawa)- gastroparesis. Continue to follow-up with Dr. Butler (neurologist) Continue Fentanyl 25 mcg patches F/u Dr. Goncalves as needed(she is declining a SCS) A prescription for narcan (naloxone) has been offered to the patient. Reports having at home. The pain management agreement was reviewed with the patient. The patient is aware of the risks/benefits of the medicatiion, potential for addiction/overdose, and how to safely store and dispose of the medication(s). She will sign the pain agreement the next time she comes to the office. She was started on this medication and has been maintained on it by Dr Marley and [employer] working with her. She is compliant with the pain management agreement and there have been no signs of medication misuse, abuse or diversion. Follow-up in 2 months Katty Steiner APRN.CNP documented in [facility]01-28-[facility]25 History of Present illness Narrative* Katty Steiner APRN.CNP - 07/13/2024 3:00 PM EST This video visit was performed via [employer]. Patient consented to receive health care services via virtual visit for this encounter Provider [facility] Patient Location: Patient Home or Place of Residence I have communicated my name and active licensure. The patient's identity and physical location wereverified at the time of this visit. Either the patient or their legal strategic partnership representative has been informed of the risks and benefits of -- and alternatives to -- treatment through a remote evaluation andconsents to proceed with the evaluation remotely. Chief Complaint: Pain History of Present Illness: Roseanna Jones is a 64 year old year old female being seen at [facility] for a evaluation and/or management of her chronic pain. Roseanna Jones last had a on 04/13/24. Since the last visit her pain level has remained stable. VAS: 7/10 Pain Location: back, neck, leg, arms Radiation: down left leg Character: aching, burning Numbness/tingling: toes left foot and hand Burning: left foot Weakness: denies Falls: denies Worsening factors: walking, standing, bending, activity Relieving factors: heat, ice and rest Patient denies any bowel or bladder dysfunction. Since the last office visit the patients medical history has not changed. The patient denies any new diagnoses, hospital visits or ER visits. The patient is currently prescribed Fentanyl Patches and gabapentin from our office. The Fentanyl Patch is located on the left side of her lower back. The medications are effective. The patient denies nausea, vomiting, constipation,rashes, drowsiness,weight gain, weight loss,dizziness,and fatigue. PDMP website checked and validated. The OARRS report has been reviewed and is consistent with the patients medical history and medication intake. Last Opioid agreement effective date: 07/04/2023 Last UDS: Reviewed - No inconsistencies noted. last uds 07/11/23------consistent(+)ETOH Hx of DM manuel Last uds 11/20/23-----consistent manuel Summary Report Date Value Ref Range Status 11/20/2023 FINAL Final Comment: Gabapentin, MS, Ur RFX ToxAssure Flex 23, Ur Test Result Flag Units Drug Present Fentanyl 26 ng/mg creat Norfentanyl 15 ng/mg creat Source of fentanyl is a scheduled prescription medication, including IV, patch, and transmucosal formulations. Norfentanyl is an expected metabolite of fentanyl. Gabapentin PRESENT Test Result Flag Units Ref Range Creatinine 111 mg/dL >=20 Declared Medications: Medication list was not provided. For clinical consultation, please call . Urine Panel: No results found for: UQCANN, UQBNZL, [id number], UQAMPH, UQMAMP, UQBUPRE, UQNORBUP, UQMTHD, UQEDDP, UQTRAM, UQDTRM, UQFNTL, UQNFTL, UQCODE, UQMORP, UQDCDN, UQHCOD, UQOXYC, UQHMOR, UQOXYM, UQCREA, UQPH, UQSPGR, UQOXID, UQSPQ Chronic Pain Functional Assessment Tools Pain Disability Index: 02/10/2024 07/13/2024 Pain Disability Index Family/Home Responsibilities: This category includes chores or duties performed around the house (e.g. yard work), errands or favors for other family members (e.g. driving the children to school) 7 7 Recreation: This category includes hobbies, sports, and other similar leisure time activities 7 7 Social Activity: This category refers to activities which involve participation with friends and acquaintances, other than family members. It includes parties, theater, concerts, dinning out, and other social functions 7 7 Occupation: This category refers to activities that are a part of or directly related to ones' job.This includes non-paying jobs as well, such as that of a housewife or volunteer worker 7 7 Sexual Behavior: This category refers to the frequency and quality of one's sex life 7 7 Self Care: This category includes activities which involve personal maintenance and independent daily living (e.g. taking a shower, driving, getting dress, etc) 7 7 Life Support Activity: This category refers to basic-life supporting behaviors such as eating, sleeping, and breathing 7 7 PDI Score 49 49 Pain Enjoyment of Life and General Activity Scale (0-10): PEG: A Three-Item Scale Assessing Pain Intensity and Interference What number best describes your pain on average in the past week?: 7 (07/13/2024 2:47 PM) What number best describes how, during the past week, pain has interfered with your enjoyment of life?: 7 (07/13/2024 2:47 PM) What number best describes how, during the past week, pain has interfered with your general activity?: 7 (07/13/2024 2:47 PM) SOAPP: SOAPP QUESTIONS How often do you have mood swings?: 0 - Never (04/13/2024 1:46 PM) How often do you smoke a cigarette within an hour after you wake up?: 0 - Never (04/13/2024 1:46 PM) How often have you taken medication other than the way it was prescribed?: 0 - Never (04/13/2024 1:46 PM) How often have you used illegal drugs (for example, marijuana, cocaine, etc.) in the past five years?: 0 - Never (04/13/2024 1:46 PM) How often, in your lifetime, have you had legal problems or been arrested?: 0 - Never (04/13/2024 1:46 PM) Sum of Questions (> or = 7 is positive): 0 (04/13/2024 1:46 PM) REVIEW OF SYSTEMS: GENERAL: No weight loss or fevers RESPIRATORY: Negative for cough CARDIOVASCULAR: Negative for chest pain GI: No nausea, vomiting, or diarrhea. MUSCULOSKELETAL: + for joint pain or swelling, back pain and muscle pain @lastpdiallquestions@ PAST MEDICAL HISTORY Diagnosis Date Abdominal pain, epigastric Abdominal pain, epigastric Abdominal pain, generalized Abdominal pain, right upper quadrant Acute gastritis without mention of hemorrhage Arachnoiditis Benign neoplasm of colon Benign neoplasm of duodenum, jejunum, and ileum Degeneration of intervertebral disc, site unspecified Depressive disorder, not elsewhere classified Diabetes (HCC) Diarrhea Diverticulitis of colon (without mention of hemorrhage)(562.11) Esophageal reflux Essential hypertension, malignant Headache(784.0) Hemorrhage of gastrointestinal tract, unspecified Internal hemorrhoids without mention of complication Nonorganic sleep disorder, unspecified Obstructive sleep apnea (adult) (pediatric) Other and unspecified hyperlipidemia Paralysis agitans (HCC) Parkinson's Disease Parkinson disease (HCC) PMH - PAST MEDICAL HISTORY OF glucose intolerant PAST SURGICAL HISTORY Procedure Laterality Date ARTHROSCOPY KNEE DIAGNOSTIC W/WO SYNOVIAL BX SPX left knee-reset patella COLONOSCOPY FLX DX W/COLLJ SPEC WHEN PFRMD 04/25/2006 Colonoscopy COLONOSCOPY FLX DX W/COLLJ SPEC WHEN PFRMD 09/20/2002 Colonoscopy COLONOSCOPY FLX DX W/COLLJ SPEC WHEN PFRMD 06/07/2015 Colonoscopy EGD TRANSORAL BIOPSY SINGLE/MULTIPLE 07/06/2009 ESOPHAGOGASTRODUODENOSCOPY TRANSORAL DIAGNOSTIC 04/25/2006 EGD ESOPHAGOGASTRODUODENOSCOPY TRANSORAL DIAGNOSTIC 09/20/2002 EGD ESOPHAGOGASTRODUODENOSCOPY TRANSORAL DIAGNOSTIC 06/07/2015 EGD LAPAROSCOPY SURG CHOLECYSTECTOMY 06/16/2000 Cholecystectomy, lap PAST SURGICAL HISTORY OF 06/16/1989 L-5, S-1 back surgery PAST SURGICAL HISTORY OF carpal tunnel PAST SURGICAL HISTORY OF Left 2019 IT Band Release SIGMOIDOSCOPY FLX DX W/COLLJ SPEC BR/WA IF PFRMD 07/06/2009 STEREOTACTIC CORE BIOPSY 04/11/2006 RIGHT BREAST BIOPSY TOTAL ABDOMINAL HYSTERECT W/WO RMVL TUBE OVARY 06/16/1994 Hysterectomy, JUANY FAMILY HISTORY Problem Relation Age of Onset Cancer Mother breast Diabetes Mother Heart Mother Heart Father Colon Cancer Father dx in his early forties Social History Tobacco Use Smoking status: Never Smokeless tobacco: Never Substance Use Topics Alcohol use: No Drug use: No Allergies: Acetazolamide Other: See Comments Pioglitazone Other: See Comments Amitriptyline Other: See Comments Biaxin [Clarithromy* Indocin [Indomethac* Penicillins Canagliflozin Other: See Comments Current Outpatient Medications Medication Sig omeprazole (PRILOSEC) 40 mg capsule Take 40 mg by mouth once daily. fentaNYL (DURAGESIC) 25 mcg/hr Apply 1 Patch as directed every 72 hours for 30 days. As directed. Patient should start on April 19, 2024. fentaNYL (DURAGESIC) 25 mcg/hr Apply 1 Patch as directed every 72 hours for 30 days. As directed. Patient should start on May 19, 2024. fentaNYL (DURAGESIC) 25 mcg/hr Apply 1 Patch as directed every 72 hours for 30 days. As directed. Patient should start on June 18, 2024. gabapentin (NEURONTIN) 600 mg tablet Take 1 tablet by mouth three times a day for 60 days. Patient should start on April 21, 2024. meloxicam (MOBIC) 7.5 mg tablet Take 1 tablet by mouth every afternoon. naloxone 4 mg/actuation nasal spray (NARCAN) Use 1 spray in one nostril as needed for overdose. Mayrepeat every 2 to 3 min in alternating nostrils until medical assistance is available ibuprofen (MOTRIN) 600 mg tablet TAKE 1 TABLET BY MOUTH THREE TIMES DAILY for 5 days TRULICITY 1.5 mg/0.5 mL pen injector inject 1 (ONE) pen (1.5mg) SUBCUTANEOUSLY EVERY WEEK glimepiride (AMARYL) 4 mg tablet Take 4 mg by mouth every morning. BIPAP No current facility-administered medications for this visit. PHYSICAL EXAMINATION: VIDEO EXAM: (performed via video enabled technology) GENERAL: alert and appropriate, in no distress, well-hydrated, well nourished, and happy, smiling, interactive HEAD: normocephalic, no abnormality or lesion noted RESPIRATORY: breathing non-labored NEUROLOGIC: no obvious deficit ASSESSMENT: Patient is stable. Chronic pain is persistent. Medications are helping Roseanna Jones to have an improved quality of life. Patient compliance with Opioid Contract: patient is compliant Encounter Diagnosis ICD-10-CM 1. Myofascial pain syndrome M79.18 2. High risk medication use Z79.899 3. Opioid dependence, continuous (HCC) F11.20 4. Encounter for long-term (current) use of medications Z79.899 5. Postlaminectomy syndrome, lumbar region M96.1 6. Encounter for long-term (current) use of high-risk medication Z79.899 7. Encounter for long-term opiate analgesic use Z79.891 8. Cervicalgia M54.2 9. Lumbar radiculopathy M54.16 PLAN: The patient understands the goal of our treatment is a reduction in pain and/or an improved level of functioning with activities of daily living. If at any time the patient does not feel the medications are helping them to achieve these goals, the medications may be discontinued. The patient reports a reduction in pain and/or an improved level of functioning with activities of daily living, denies any significant adverse effects, is compliant with the pain management agreement and there are no signs of medication misuse, abuse or diversion; therefore, the medications will be continued. Despite its legality, THC containing products and CBD products that may contain THC are not to be used while being prescribed pain medications. If your drug screen contains any THC your medication will be discontinued. Continue Gabapentin Continue to follow-up with Dr. Mcbride(At [facility]) - every 3-6 months. pt needs to make an appt Continue to follow-up to PCP (Dr. Randhawa)- gastroparesis. Continue to follow-up with Dr. Butler (neurologist) Continue Fentanyl 25 mcg patches F/u Dr. Goncalves as needed(she is declining a SCS) A prescription for narcan (naloxone) has been offered to the patient. Reports having at home. The pain management agreement was reviewed with the patient. The patient is aware of the risks/benefits of the medicatiion, potential for addiction/overdose, and how to safely store and dispose of the medication(s). She will sign the pain agreement the next time she comes to the office. She was started on this medication and has been maintained on it by Dr Marley and [employer] working with her. She is compliant with the pain management agreement and there have been no signs of medication misuse, abuse or diversion. Follow-up in 2 months Katty Steiner APRN.CNP documented in [facility]01-28-[facility]25 NoteHNO ID: [id number] Author: KATTY STEINER APRN.CNP Service: ? Author Type: Nurse Practitioner Type: Progress Notes Filed: 07/13/2024 15:06 Note Text: This video visit was performed via [employer]. Patient consented to receive health care services via virtual visit for this encounter Provider [facility] Patient Location: Patient Home or Place of Residence I have communicated my name and active licensure. The patient's identity and physical location were verified at the time of this visit. Either the patient or their legal strategic partnership representative has been informed of the risks and benefits of -- and alternatives to -- treatment through a remote evaluation and consents to proceed with the evaluation remotely. Chief Complaint: Pain History of Present Illness: Roseanna Jones is a 64 year old year old female being seen at [facility] for a evaluation and/or management of her chronic pain. Roseanna Jones last had a on 04/13/24. Since the last visit her pain level has remained stable. VAS: 7/10 Pain Location: back, neck, leg, arms Radiation: down left leg Character: aching, burning Numbness/tingling: toes left foot and hand Burning: left foot Weakness: denies Falls: denies Worsening factors: walking, standing, bending, activity Relieving factors: heat, ice and rest Patient denies any bowel or bladder dysfunction. Since the last office visit the patients medical history has not changed. The patient denies any new diagnoses, hospital visits or ER visits. The patient is currently prescribed Fentanyl Patches and gabapentin from our office. The Fentanyl Patch is located on the left side of her lower back. The medications are effective. The patient denies nausea, vomiting, constipation,rashes, drowsiness,weight gain, weight loss,dizziness,and fatigue. PDMP website checked and validated. The OARRS report has been reviewed and is consistent with the patients medical history and medication intake. Last Opioid agreement effective date: 07/04/2023 Last UDS: Reviewed - No inconsistencies noted. last uds 07/11/23------consistent(+)ETOH Hx of DM manuel Last uds 11/20/23-----consistent manuel Summary Report Date Value Ref Range Status 11/20/2023 FINAL Final Comment: Gabapentin, MS, Ur RFX ToxAssure Flex 23, Ur Test Result Flag Units Drug Present Fentanyl 26 ng/mg creat Norfentanyl 15 ng/mg creat Source of fentanyl is a scheduled prescription medication, including IV, patch, and transmucosal formulations. Norfentanyl is an expected metabolite of fentanyl. Gabapentin PRESENT Test Result Flag Units Ref Range Creatinine 111 mg/dL >=20 Declared Medications: Medication list was not provided. For clinical consultation, please call . Urine Panel: No results found for: UQCANN, UQBNZL, [id number], UQAMPH, UQMAMP, UQBUPRE, UQNORBUP, UQMTHD, UQEDDP, UQTRAM, UQDTRM, UQFNTL, UQNFTL, UQCODE, UQMORP, UQDCDN, UQHCOD, UQOXYC, UQHMOR, UQOXYM, UQCREA, UQPH, UQSPGR, UQOXID, UQSPQ Chronic Pain Functional Assessment Tools Pain Disability Index: 02/10/2024 07/13/2024 Pain Disability Index Family/Home Responsibilities: This category includes chores or duties performed around the house (e.g. yard work), errands or favors for other family members (e.g. driving the children to school) 7 7 Recreation: This category includes hobbies, sports, and other similar leisure time activities 7 7 Social Activity: This category refers to activities which involve participation with friends and acquaintances, other than family members. It includes parties, theater, concerts, dinning out, and other social functions 7 7 Occupation: This category refers to activities that are a part of or directly related to ones' job. This includes non-paying jobs as well, such as that of a housewife or volunteer worker 7 7 Sexual Behavior: This category refers to the frequency and quality of one's sex life 7 7 Self Care: This category includes activities which involve personal maintenance and independent daily living (e.g. taking a shower, driving, getting dress, etc) 7 7 Life Support Activity: This category refers to basic-life supporting behaviors such as eating, sleeping, and breathing 7 7 PDI Score 49 49 Pain Enjoyment of Life and General Activity Scale (0-10): PEG: A Three-Item Scale Assessing Pain Intensity and (more content not included)...[facility]11-01-2024 Consult note Author Saman Claudio [facility] Note Date/Time October 06, 2024 3:3 4pm [facility] Medical Records Department [address] [place] [address] Anesthesia Postop Eval I 10/06/24 153 MR#: [id number] Acct: [id number] Name: ROSEANNA JONES Rep #:[id number] : 1960 64 From: Saman Claudio PCP: Dr. Reed Vazquez MD Status:REG S DC Y Race: C Location: [place] [address] Anesthesia: Postop Eval I Current Vital Signs Temperature: 97.4 F Pulse Rate: 86 Blood Pressure: 98/59 Respiratory Rate: 16 Pulse Ox: 94 Oxygen Delivery Method: Room Air Assessment Airway patent: Yes Spontaneous unlabored respirations: Yes Mental status: Awake and Calm nausea: No Vomiting: No Anesthesia Complication: No Fluid Hydration Crystalloid volume administer (ml): 600 Total IV fluid infused: 600 Progress Note Anesthesia document: Postop Eval 1 completed: Yes 10/06/241533 <Electronically signed by Saman Claudio > Date _ Saman Jones Signature: Date CC: ~ Signed [facility] Work Phone: [phone]) 227-343010-29-2024 Instructions* Patient Instructions* Katty Steiner APRN.MACHINE SPECIALIST - 04/13/2024 2:09 PM EDT Despite its legality, THC containing products and CBD products that may contain THC are not to be used while being prescribed pain medications. If your drug screen contains any THC your medication will be discontinued. Continue Gabapentin Continue to follow-up with Dr. Mcbride(At [facility]) - every 3-6 months. pt needs to make an appt Continue to follow-up to PCP (Dr. Randhawa)- gastroparesis. Continue to follow-up with Dr. Butler (neurologist) Continue Fentanyl 25 mcg patches F/u Dr. Goncalves as needed(she is declining a SCS) A prescription for narcan (naloxone) has been offered to the patient. Reports having at home. The pain management agreement was reviewed with the patient. The patient is aware of the risks/benefits of the medicatiion, potential for addiction/overdose, and how to safely store and dispose of the medication(s). She will sign the pain agreement the next time she comes to the office. She was started on this medication and has been maintained on it by Dr Marley and [employer] working with her. She is compliant with the pain management agreement and there have been no signs of medication misuse, abuse or diversion. Follow-up in 2 months Katty Steiner APRN.CNP [facility] History of Present illness Narrative* Katty Steiner APRN.CNP - 04/13/2024 2:00 PM EDT Chief Complaint: Pain History of Present Illness: Roseanna Jones is a 63 year old year old female being seen at [facility] for a evaluation and/or management of her chronic pain. Roseanna Jones last had a on 02/10/24. Since the last visit her pain level has remained stable. VAS: 7-8/10 Pain Location: back, neck, leg, arms Radiation: down left leg Character: aching, burning Numbness/tingling: toes left foot and hand Burning: left foot Weakness: denies Falls: denies Worsening factors: walking, standing, bending, activity Relieving factors: heat, ice and rest Patient denies any bowel or bladder dysfunction. Since the last office visit the patients medical history has not changed. The patient denies any new diagnoses, hospital visits or ER visits. The patient is currently prescribed Fentanyl Patches and gabapentin from our office. The Fentanyl Patch is located on the left side of her lower back(witnessed). The medications are effective. The patient denies nausea, vomiting, constipation,rashes, drowsiness,weight gain, weight loss,dizziness,and fatigue. The OARRS report has been reviewed and is consistent with the patients medical history and medication intake. Last UDS: Reviewed - No inconsistencies noted.(+)ETOH Hx of DM Summary Report Date Value Ref Range Status 11/20/2023 FINAL Final Comment: Gabapentin, MS, Ur RFX ToxAssure Flex 23, Ur Test Result Flag Units Drug Present Fentanyl 26 ng/mg creat Norfentanyl 15 ng/mg creat Source of fentanyl is a scheduled prescription medication, including IV, patch, and transmucosal formulations. Norfentanyl is an expected metabolite of fentanyl. Gabapentin PRESENT Test Result Flag Units Ref Range Creatinine 111 mg/dL >=20 Declared Medications: Medication list was not provided. For clinical consultation, please call . Lab Results Component Value Date SUMM FINAL 11/20/2023 Summary Report (Summary) Date Value Ref Range Status 03/28/2022 FINAL Final Comment: TOXASSURE COMP DRUG ANALYSIS,UR Test Result Flag Units Drug Present Morphine 3648 ng/mg creat Normorphine 79 ng/mg creat Potential sources of large amounts of morphine in the absence of codeine include administration of morphine or use of heroin. Normorphine is an expected metabolite of morphine. Oxycodone 4959 ng/mg creat Oxymorphone 3010 ng/mg creat Noroxycodone 2027 ng/mg creat Noroxymorphone 508 ng/mg creat Sources of oxycodone are scheduled prescription medications. Oxymorphone, noroxycodone, and noroxymorphone are expected metabolites of oxycodone. Oxymorphone is also available as a scheduled prescription medication. Gabapentin PRESENT Citalopram PRESENT Desmethylcitalopram PRESENT Desmethylcitalopram is an expected metabolite of citalopram or the enantiomeric form, escitalopram. Mirtazapine PRESENT Acetaminophen PRESENT Ibuprofen PRESENT Propranolol PRESENT Test Result Flag Units Ref Range Creatinine 63 mg/dL >=20 Declared Medications: Medication list was not provided. For clinical consultation, please call . PDMP website checked and validated. OARRS report reviewed on November 20, 2023 by Katty Steiner APRN.CNP and is consistent with the patients medical history and medication intake. ROS: See HPI 10/09/2023 02/10/2024 Pain Disability Index Family/Home Responsibilities: This category includes chores or duties performed around the house (e.g. yard work), errands or favors for other family members (e.g. driving the children to school) 7 7 Recreation: This category includes hobbies, sports, and other similar leisure time activities 7 7 Social Activity: This category refers to activities which involve participation with friends and acquaintances, other than family members. It includes parties, theater, concerts, dinning out, and other social functions 7 7 Occupation: This category refers to activities that are a part of or directly related to ones' job.This includes non-paying jobs as well, such as that of a housewife or volunteer worker 7 7 Sexual Behavior: This category refers to the frequency and quality of one's sex life 7 7 Self Care: This category includes activities which involve personal maintenance and independent daily living (e.g. taking a shower, driving, getting dress, etc) 7 7 Life Support Activity: This category refers to basic-life supporting behaviors such as eating, sleeping, and breathing 7 7 PDI Score 49 49 PAST MEDICAL HISTORY Diagnosis Date Abdominal pain, epigastric Abdominal pain, epigastric Abdominal pain, generalized Abdominal pain, right upper quadrant Acute gastritis without mention of hemorrhage Arachnoiditis Benign neoplasm of colon Benign neoplasm of duodenum, jejunum, and ileum Degeneration of intervertebral disc, site unspecified Depressive disorder, not elsewhere classified Diabetes (HCC) Diarrhea Diverticulitis of colon (without mention of hemorrhage)(562.11) Esophageal reflux Essential hypertension, malignant Headache(784.0) Hemorrhage of gastrointestinal tract, unspecified Internal hemorrhoids without mention of complication Nonorganic sleep disorder, unspecified Obstructive sleep apnea (adult) (pediatric) Other and unspecified hyperlipidemia Paralysis agitans (HCC) Parkinson's Disease Parkinson disease (HCC) PMH - PAST MEDICAL HISTORY OF glucose intolerant PAST SURGICAL HISTORY Procedure Laterality Date ARTHROSCOPY KNEE DIAGNOSTIC W/WO SYNOVIAL BX SPX left knee-reset patella COLONOSCOPY FLX DX W/COLLJ SPEC WHEN PFRMD 04/25/2006 Colonoscopy COLONOSCOPY FLX DX W/COLLJ SPEC WHEN PFRMD 09/20/2002 Colonoscopy COLONOSCOPY FLX DX W/COLLJ SPEC WHEN PFRMD 06/07/2015 Colonoscopy EGD TRANSORAL BIOPSY SINGLE/MULTIPLE 07/06/2009 ESOPHAGOGASTRODUODENOSCOPY TRANSORAL DIAGNOSTIC 04/25/2006 EGD ESOPHAGOGASTRODUODENOSCOPY TRANSORAL DIAGNOSTIC 09/20/2002 EGD ESOPHAGOGASTRODUODENOSCOPY TRANSORAL DIAGNOSTIC 06/07/2015 EGD LAPAROSCOPY SURG CHOLECYSTECTOMY 06/16/2000 Cholecystectomy, lap PAST SURGICAL HISTORY OF 06/16/1989 L-5, S-1 back surgery PAST SURGICAL HISTORY OF carpal tunnel PAST SURGICAL HISTORY OF Left 2019 IT Band Release SIGMOIDOSCOPY FLX DX W/COLLJ SPEC BR/WA IF PFRMD 07/06/2009 STEREOTACTIC CORE BIOPSY 04/11/2006 RIGHT BREAST BIOPSY TOTAL ABDOMINAL HYSTERECT W/WO RMVL TUBE OVARY 06/16/1994 Hysterectomy, JUANY FAMILY HISTORY Problem Relation Age of Onset Cancer Mother breast Diabetes Mother Heart Mother Heart Father Colon Cancer Father dx in his early forties Social History Tobacco Use Smoking status: Never Smokeless tobacco: Never Substance Use Topics Alcohol use: No Drug use: No Allergies: Acetazolamide Other: See Comments Pioglitazone Other: See Comments Amitriptyline Other: See Comments Biaxin [Clarithromy* Indocin [Indomethac* Penicillins Canagliflozin Other: See Comments Current Outpatient Medications Medication Sig omeprazole (PRILOSEC) 40 mg capsule Take 40 mg by mouth once daily. gabapentin (NEURONTIN) 600 mg tablet Take 1 tablet by mouth three times a day for 60 days. Patient should start on February 21, 2024. fentaNYL (DURAGESIC) 25 mcg/hr Apply 1 Patch as directed every 72 hours for 30 days. As directed. Patient should start on March 20, 2024. meloxicam (MOBIC) 7.5 mg tablet Take 1 tablet by mouth every afternoon. naloxone 4 mg/actuation nasal spray (NARCAN) Use 1 spray in one nostril as needed for overdose. Mayrepeat every 2 to 3 min in alternating nostrils until medical assistance is available ibuprofen (MOTRIN) 600 mg tablet TAKE 1 TABLET BY MOUTH THREE TIMES DAILY for 5 days TRULICITY 1.5 mg/0.5 mL pen injector inject 1 (ONE) pen (1.5mg) SUBCUTANEOUSLY EVERY WEEK glimepiride (AMARYL) 4 mg tablet Take 4 mg by mouth every morning. BIPAP No current facility-administered medications for this visit. PHYSICAL EXAMINATION: GENERAL: Healthy, alert, no distress, cooperative SKIN: Skin color, texture, turgor normal. No rashes or lesions. HEENT: PERRL, EOMI, and normal dentition Musculoskeletal:+5/5 motor strength on the right leg and +4/5 motor strength on the left leg. Negative SLR signs on the right and positive on the left. Sensory is intact to light touch in all dermatomes. Diminished sensation in the left leg at all dermatomes compared to the right. Negative foot drop noted bilaterally. Patient has SLR of about 50 degrees on the left and 80 degrees on the right. Neg ative Tony's test on the right and positive Tony's test on the left. Pt declines to bend over. Tenderness at L4-5 midline paraspinal muscle, L>R. Toe and heel walking are normal. Slightly off balance. There is a well healed lumbar scar. There is no peripheral edema noted. ASSESSMENT: Patient is stable. Chronic pain is persistent. Medications are helping Roseanna Jones to have an improved quality of life. Patient compliance with Opioid Contract: patient is compliant Encounter Diagnosis ICD-10-CM 1. Myofascial pain syndrome M79.18 2. Encounter for long-term (current) use of medications Z79.899 3. Encounter for long-term opiate analgesic use Z79.891 4. High risk medication use Z79.899 5. Postlaminectomy syndrome, lumbar region M96.1 6. Cervicalgia M54.2 7. Opioid dependence, continuous (HCC) F11.20 8. Encounter for long-term (current) use of high-risk medication Z79.899 9. Lumbar radiculopathy M54.16 10. Chronic pain syndrome G89.4 PLAN: The patient understands the goal of our treatment is a reduction in pain and/or an improved level of functioning with activities of daily living. If at any time the patient does not feel the medications are helping them to achieve these goals, the medications may be discontinued. The patient reports a reduction in pain and/or an improved level of functioning with activities of daily living, denies any significant adverse effects, is compliant with the pain management agreement and there are no signs of medication misuse, abuse or diversion; therefore, the medications will be continued. Despite its legality, THC containing products and CBD products that may contain THC are not to be used while being prescribed pain medications. If your drug screen contains any THC your medication will be discontinued. Continue Gabapentin Continue to follow-up with Dr. Mcbride(At [facility]) - every 3-6 months. pt needs to make an appt Continue to follow-up to PCP (Dr. Randhawa)- gastroparesis. Continue to follow-up with Dr. Butler (neurologist) Continue Fentanyl 25 mcg patches F/u Dr. Goncalves as needed(she is declining a SCS) A prescription for narcan (naloxone) has been offered to the patient. Reports having at home. The pain management agreement was reviewed with the patient. The patient is aware of the risks/benefits of the medicatiion, potential for addiction/overdose, and how to safely store and dispose of the medication(s). She will sign the pain agreement the next time she comes to the office. She was started on this medication and has been maintained on it by Dr Marley and [employer] working with her. She is compliant with the pain management agreement and there have been no signs of medication misuse, abuse or diversion. Follow-up in 2 months Katty Steiner APRN.CNP [facility] NoteHNO ID: [id number] Author: KATTY STEINER APRN.CNP Service: ? Author Type: Nurse Practitioner Type: Progress Notes Filed: 04/13/2024 14:17 Note Text: Chief Complaint: Pain History of Present Illness: Roseanna Jones is a 63 year old year old female being seen at [facility] for a evaluation and/or management of her chronic pain. Roseanna Jones last had a on 02/10/24. Since the last visit her pain level has remained stable. VAS: 7-8/10 Pain Location: back, neck, leg, arms Radiation: down left leg Character: aching, burning Numbness/tingling: toes left foot and hand Burning: left foot Weakness: denies Falls: denies Worsening factors: walking, standing, bending, activity Relieving factors: heat, ice and rest Patient denies any bowel or bladder dysfunction. Since the last office visit the patients medical history has not changed. The patient denies any new diagnoses, hospital visits or ER visits. The patient is currently prescribed Fentanyl Patches and gabapentin from our office. The Fentanyl Patch is located on the left side of her lower back(witnessed). The medications are effective. The patient denies nausea, vomiting, constipation,rashes, drowsiness,weight gain, weight loss,dizziness,and fatigue. The OARRS report has been reviewed and is consistent with the patients medical history and medication intake. Last UDS: Reviewed - No inconsistencies noted.(+)ETOH Hx of DM Summary Report Date Value Ref Range Status 11/20/2023 FINAL Final Comment: Gabapentin, MS, Ur RFX ToxAssure Flex 23, Ur Test Result Flag Units Drug Present Fentanyl 26 ng/mg creat Norfentanyl 15 ng/mg creat Source of fentanyl is a scheduled prescription medication, including IV, patch, and transmucosal formulations. Norfentanyl is an expected metabolite of fentanyl. Gabapentin PRESENT Test Result Flag Units Ref Range Creatinine 111 mg/dL >=20 Declared Medications: Medication list was not provided. For clinical consultation, please call . Lab Results Component Value Date SUMM FINAL 11/20/2023 Summary Report (Summary) Date Value Ref Range Status 03/28/2022 FINAL Final Comment: TOXASSURE COMP DRUG ANALYSIS,UR Test Result Flag Units Drug Present Morphine 3648 ng/mg creat Normorphine 79 ng/mg creat Potential sources of large amounts of morphine in the absence of codeine include administration of morphine or use of heroin. Normorphine is an expected metabolite of morphine. Oxycodone 4959 ng/mg creat Oxymorphone 3010 ng/mg creat Noroxycodone 2027 ng/mg creat Noroxymorphone 508 ng/mg creat Sources of oxycodone are scheduled prescription medications. Oxymorphone, noroxycodone, and noroxymorphone are expected metabolites of oxycodone. Oxymorphone is also available as a scheduled prescription medication. Gabapentin PRESENT Citalopram PRESENT Desmethylcitalopram PRESENT Desmethylcitalopram is an expected metabolite of citalopram or the enantiomeric form, escitalopram. Mirtazapine PRESENT Acetaminophen PRESENT Ibuprofen PRESENT Propranolol PRESENT Test Result Flag Units Ref Range Creatinine 63 mg/dL >=20 Declared Medications: Medication list was not provided. For clinical consultation, please call . PDMP website checked and validated. OARRS report reviewed on November 20, 2023 by Katty Steiner APRN.CNP and is consistent with the patients medical history and medication intake. ROS: See HPI 10/09/2023 02/10/2024 Pain Disability Index Family/Home Responsibilities: This category includes chores or duties performed around the house (e.g. yard work), errands or favors for other family members (e.g. driving the children to school) 7 7 Recreation: This category includes hobbies, sports, and other similar leisure time activities 7 7 Social Activity: This category refers to activities which involve participation with friends and acquaintances, other than family members. It includes parties, theater, concerts, d (more content not included)...[facility] 02-10-2024 History of Present illness Narrative* Katty Steiner APRN.MACHINE SPECIALIST - 02/10/2024 3:00 PM EDT This video visit was performed via [employer]. Patient consented to receive health care services via virtual visit for this encounter Provider Location: Non-[place] Patient Location: Patient Home or Place of Residence I have communicated my name and active licensure. The patient's identity and physical location wereverified at the time of this visit. Either the patient or their legal strategic partnership representative has been informed of the risks and benefits of -- and alternatives to -- treatment through a remote evaluation andconsents to proceed with the evaluation remotely. Chief Complaint: Pain History of Present Illness: Roseanna Jones is a 63 year old year old female being seen at [facility] for a evaluation and/or management of her chronic pain. Roseanna Jones last had a visit on 11/20/23. Since the last visit her pain level has remained stable. VAS: 7/10 Pain Location: back, neck, leg, arms Radiation: down left leg Character: aching, burning Numbness/tingling: toes left foot and hand Burning: left foot Weakness: denies Falls: denies Worsening factors: walking, standing, bending, activity Relieving factors: heat, ice and rest Patient denies any bowel or bladder dysfunction. Since the last office visit the patients medical history has not changed. The patient denies any new diagnoses, hospital visits or ER visits. The patient is currently prescribed Fentanyl Patches and gabapentin from our office. The Fentanyl Patch is located on the left side of her abd. The medications are effective. The patient denies nausea, vomiting, constipation,rashes, drowsiness,weight gain, weight loss,dizziness,and fatigue. The OARRS report has been reviewed and is consistent with the patients medical history and medication intake. Last UDS: Summary Report Date Value Ref Range Status 11/20/2023 FINAL Final Comment: Gabapentin, MS, Ur RFX ToxAssure Flex 23, Ur Test Result Flag Units Drug Present Fentanyl 26 ng/mg creat Norfentanyl 15 ng/mg creat Source of fentanyl is a scheduled prescription medication, including IV, patch, and transmucosal formulations. Norfentanyl is an expected metabolite of fentanyl. Gabapentin PRESENT Test Result Flag Units Ref Range Creatinine 111 mg/dL >=20 Declared Medications: Medication list was not provided. For clinical consultation, please call . Summary Report (Summary) Date Value Ref Range Status 03/28/2022 FINAL Final Comment: TOXASSURE COMP DRUG ANALYSIS,UR Test Result Flag Units Drug Present Morphine 3648 ng/mg creat Normorphine 79 ng/mg creat Potential sources of large amounts of morphine in the absence of codeine include administration of morphine or use of heroin. Normorphine is an expected metabolite of morphine. Oxycodone 4959 ng/mg creat Oxymorphone 3010 ng/mg creat Noroxycodone 2027 ng/mg creat Noroxymorphone 508 ng/mg creat Sources of oxycodone are scheduled prescription medications. Oxymorphone, noroxycodone, and noroxymorphone are expected metabolites of oxycodone. Oxymorphone is also available as a scheduled prescription medication. Gabapentin PRESENT Citalopram PRESENT Desmethylcitalopram PRESENT Desmethylcitalopram is an expected metabolite of citalopram or the enantiomeric form, escitalopram. Mirtazapine PRESENT Acetaminophen PRESENT Ibuprofen PRESENT Propranolol PRESENT Test Result Flag Units Ref Range Creatinine 63 mg/dL >=20 Declared Medications: Medication list was not provided. For clinical consultation, please call . The UDS has been reviewed and is consistent with medications prescribed. Summary Report (Summary) Date Value Ref Range Status 03/28/2022 FINAL Final Comment: TOXASSURE COMP DRUG ANALYSIS,UR Test Result Flag Units Drug Present Morphine 3648 ng/mg creat Normorphine 79 ng/mg creat Potential sources of large amounts of morphine in the absence of codeine include administration of morphine or use of heroin. Normorphine is an expected metabolite of morphine. Oxycodone 4959 ng/mg creat Oxymorphone 3010 ng/mg creat Noroxycodone 2027 ng/mg creat Noroxymorphone 508 ng/mg creat Sources of oxycodone are scheduled prescription medications. Oxymorphone, noroxycodone, and noroxymorphone are expected metabolites of oxycodone. Oxymorphone is also available as a scheduled prescription medication. Gabapentin PRESENT Citalopram PRESENT Desmethylcitalopram PRESENT Desmethylcitalopram is an expected metabolite of citalopram or the enantiomeric form, escitalopram. Mirtazapine PRESENT Acetaminophen PRESENT Ibuprofen PRESENT Propranolol PRESENT Test Result Flag Units Ref Range Creatinine 63 mg/dL >=20 Declared Medications: Medication list was not provided. For clinical consultation, please call . REVIEW OF SYSTEMS: GENERAL: No weight loss or fevers RESPIRATORY: Negative for cough CARDIOVASCULAR: Negative for chest pain GI: No nausea, vomiting, or diarrhea. 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, unspecified No date: Obstructive sleep apnea (adult) (pediatric) No date: Other and unspecified hyperlipidemia No date: Paralysis agitans ([facility]) Comment: Parkinson's Disease No date: Parkinson disease ([facility]) No date: PMH - PAST MEDICAL HISTORY OF Comment: glucose intolerant PAST SURGICAL HISTORY No date: ARTHROSCOPY KNEE DIAGNOSTIC W/WO SYNOVIAL BX SPX Comment: left knee-reset patella 04/25/2006: COLONOSCOPY FLX DX W/COLLJ SPEC WHEN PFRMD Comment: Colonoscopy 09/20/2002: COLONOSCOPY FLX DX W/COLLJ SPEC WHEN PFRMD Comment: Colonoscopy 06/07/2015: COLONOSCOPY FLX DX W/COLLJ SPEC WHEN PFRMD Comment: Colonoscopy 07/06/2009: EGD TRANSORAL BIOPSY SINGLE/MULTIPLE 04/25/2006: ESOPHAGOGASTRODUODENOSCOPY TRANSORAL DIAGNOSTIC Comment: EGD 09/20/2002: ESOPHAGOGASTRODUODENOSCOPY TRANSORAL DIAGNOSTIC Comment: EGD 06/07/2015: ESOPHAGOGASTRODUODENOSCOPY TRANSORAL DIAGNOSTIC Comment: EGD 06/16/2000: LAPAROSCOPY SURG CHOLECYSTECTOMY Comment: Cholecystectomy, lap 06/16/1989: PAST SURGICAL HISTORY OF Comment: L-5, S-1 back surgery No date: PAST SURGICAL HISTORY OF Comment: carpal tunnel 2019: PAST SURGICAL HISTORY OF; Left Comment: IT Band Release 07/06/2009: SIGMOIDOSCOPY FLX DX W/COLLJ SPEC BR/WA IF PFRMD 04/11/2006: STEREOTACTIC CORE BIOPSY Comment: RIGHT BREAST BIOPSY 06/16/1994: TOTAL ABDOMINAL HYSTERECT W/WO RMVL TUBE OVARY Comment: Hysterectomy, JUANY FAMILY HISTORY Problem Relation Age of Onset Cancer Mother breast Diabetes Mother Heart Mother Heart Father Colon Cancer Father dx in his early forties Social History Tobacco Use Smoking status: Never Smokeless tobacco: Never Substance Use Topics Alcohol use: No Drug use: No Allergies: Acetazolamide Other: See Comments Pioglitazone Other: See Comments Amitriptyline Other: See Comments Biaxin [Clarithromy* Indocin [Indomethac* Penicillins Canagliflozin Other: See Comments Current Outpatient Medications Medication Sig [START ON 02/21/2024] gabapentin (NEURONTIN) 600 mg tablet Take 1 tablet by mouth three times a day for 60 days. Patient should start on February 21, 2024. [START ON 02/19/2024] fentaNYL (DURAGESIC) 25 mcg/hr Apply 1 Patch as directed every 72 hours for 30 days. As directed. Patient should start on February 19, 2024. [START ON 03/20/2024] fentaNYL (DURAGESIC) 25 mcg/hr Apply 1 Patch as directed every 72 hours for 30days. As directed. Patient should start on March 20, 2024. fentaNYL (DURAGESIC) 25 mcg/hr Apply 1 Patch as directed every 72 hours for 30 days. As directed. Do not start before December 14, 2023. meloxicam (MOBIC) 7.5 mg tablet Take 1 tablet by mouth every afternoon. naloxone 4 mg/actuation nasal spray (NARCAN) Use 1 spray in one nostril as needed for overdose. Mayrepeat every 2 to 3 min in alternating nostrils until medical assistance is available ibuprofen (MOTRIN) 600 mg tablet TAKE 1 TABLET BY MOUTH THREE TIMES DAILY for 5 days TRULICITY 1.5 mg/0.5 mL pen injector inject 1 (ONE) pen (1.5mg) SUBCUTANEOUSLY EVERY WEEK glimepiride (AMARYL) 4 mg tablet Take 4 mg by mouth every morning. BIPAP esomeprazole (NEXIUM) 40 mg capsule Take 40 mg by mouth. No current facility-administered medications for this visit. PHYSICAL EXAMINATION: VIDEO EXAM: (performed via video enabled technology) GENERAL: alert and appropriate, in no distress, well-hydrated, well nourished and happy, smiling, interactive HEAD: normocephalic, no abnormality or lesion noted RESPIRATORY: breathing non-labored ASSESSMENT: Patient is stable. Chronic pain is persistent. Medications are helping Roseanna Jones to have an improved quality of life. Patient compliance with Opioid Contract: patient is compliant Encounter Diagnosis ICD-10-CM 1. Myofascial pain syndrome M79.18 fentaNYL (DURAGESIC) 25 mcg/hr fentaNYL (DURAGESIC) 25 mcg/hr 2. High risk medication use Z79.899 3. Opioid dependence, continuous (HCC) F11.20 4. Encounter for long-term (current) use of medications Z79.899 5. Postlaminectomy syndrome, lumbar region M96.1 6. Encounter for long-term (current) use of high-risk medication Z79.899 7. Encounter for long-term opiate analgesic use Z79.891 8. Cervicalgia M54.2 9. Lumbar radiculopathy M54.16 10. Chronic pain syndrome G89.4 fentaNYL (DURAGESIC) 25 mcg/hr fentaNYL (DURAGESIC) 25 mcg/hr PLAN: The patient understands the goal of our treatment is a reduction in pain and/or an improved level of functioning with activities of daily living. If at any time the patient does not feel the medications are helping them to achieve these goals, the medications may be discontinued. The patient reports a reduction in pain and/or an improved level of functioning with activities of daily living, denies any significant adverse effects, is compliant with the pain management agreement and there are no signs of medication misuse, abuse or diversion; therefore, the medications will be continued. Continue Gabapentin Continue to follow-up with Dr. Mcbride(At [facility]) - every 3-6 months. pt needs to make an appt Continue to follow-up to PCP (Dr. Randhawa) about your gastroparesis. F/U with to consider a gastric stimulator implant. Continue to follow-up with Dr. Butler (neurologist) Continue Fentanyl 25 mcg patches F/u Dr. Goncalves as needed(she is declining a SCS) A prescription for narcan (naloxone) has been offered to the patient. Reports having at home. The pain management agreement was reviewed with the patient. The patient is aware of the risks/benefits of the medicatiion, potential for addiction/overdose, and how to safely store and dispose of the medication(s). She will sign the pain agreement the next time she comes to the office. She was started on this medication and has been maintained on it by Dr Marley and [employer] working with her. She is compliant with the pain management agreement and there have been no signs of medication misuse, abuse or diversion. Follow-up in 2 months-in office visit Katty Steiner APRN.CNP documented [facility]24 NoteHNO ID: [id number] Author: KATTY STEINER APRN.CNP Service: ? Author Type: Nurse Practitioner Type: Progress Notes Filed: 02/10/2024 15:07 Note Text: This video visit was performed via Parudi. Patient consented to receive health care services via virtual visit for this encounter Provider [facility] Patient Location: Patient Home or Place of Residence I have communicated my name and active licensure. The patient's identity and physical location were verified at the time of this visit. Either the patient or their legal strategic partnership representative has been informed of the risks and benefits of -- and alternatives to -- treatment through a remote evaluation and consents to proceed with the evaluation remotely. Chief Complaint: Pain History of Present Illness: Roseanna Jones is a 63 year old year old female being seen at [facility] for a evaluation and/or management of her chronic pain. Roseanna Jones last had a visit on 11/20/23. Since the last visit her pain level has remained stable. VAS: 7/10 Pain Location: back, neck, leg, arms Radiation: down left leg Character: aching, burning Numbness/tingling: toes left foot and hand Burning: left foot Weakness: denies Falls: denies Worsening factors: walking, standing, bending, activity Relieving factors: heat, ice and rest Patient denies any bowel or bladder dysfunction. Since the last office visit the patients medical history has not changed. The patient denies any new diagnoses, hospital visits or ER visits. The patient is currently prescribed Fentanyl Patches and gabapentin from our office. The Fentanyl Patch is located on the left side of her abd. The medications are effective. The patient denies nausea, vomiting, constipation,rashes, drowsiness,weight gain, weight loss,dizziness,and fatigue. The OARRS report has been reviewed and is consistent with the patients medical history and medication intake. Last UDS: Summary Report Date Value Ref Range Status 11/20/2023 FINAL Final Comment: Gabapentin, MS, Ur RFX ToxAssure Flex 23, Ur Test Result Flag Units Drug Present Fentanyl 26 ng/mg creat Norfentanyl 15 ng/mg creat Source of fentanyl is a scheduled prescription medication, including IV, patch, and transmucosal formulations. Norfentanyl is an expected metabolite of fentanyl. Gabapentin PRESENT Test Result Flag Units Ref Range Creatinine 111 mg/dL >=20 Declared Medications: Medication list was not provided. For clinical consultation, please call . Summary Report (Summary) Date Value Ref Range Status 03/28/2022 FINAL Final Comment: TOXASSURE COMP DRUG ANALYSIS,UR Test Result Flag Units Drug Present Morphine 3648 ng/mg creat Normorphine 79 ng/mg creat Potential sources of large amounts of morphine in the absence of codeine include administration of morphine or use of heroin. Normorphine is an expected metabolite of morphine. Oxycodone 4959 ng/mg creat Oxymorphone 3010 ng/mg creat Noroxycodone 2027 ng/mg creat Noroxymorphone 508 ng/mg creat Sources of oxycodone are scheduled prescription medications. Oxymorphone, noroxycodone, and noroxymorphone are expected metabolites of oxycodone. Oxymorphone is also available as a scheduled prescription medication. Gabapentin PRESENT Citalopram PRESENT Desmethylcitalopram PRESENT Desmethylcitalopram is an expected metabolite of citalopram or the enantiomeric form, escitalopram. Mirtazapine PRESENT Acetaminophen PRESENT Ibuprofen PRESENT Propranolol PRESENT Test Result Flag Units Ref Range Creatinine 63 mg/dL >=20 Declared Medications: Medication list was not provided. For clinical consultation, please call . The UDS has been reviewed and is consistent with medications prescribed. Summary Report (Summary) Date Value Ref Range Status 03/28/2022 FINAL Final Comment: TOXASSURE COMP DRUG (more content not included)...[facility]06-06-2024 Note* Addendum Note - Katty Steiner APRN.CNP - 11/20/2023 9:39 AM EDTAddended by: KATTY STEINER on: 11/20/2023 09:39 AM Modules accepted: Orders [facility]06-06-2024 Miscellaneous Notes* Addendum Note - Katty Steiner APRN.CNP - 11/20/2023 9:39 AM EDTAddended by: KATTY STEINER on: 11/20/2023 09:39 AM Modules accepted: Orders documented in this encounterRegional [facility] Center06-06-2024 Instructions* Patient Instructions* Katty Steiner APRN.CNP - 11/20/2023 9:13 AM EDT Ordered UDS Continue Gabapentin Continue to follow-up with Dr. Mcbride(At [facility]) - every 3-6 months. pt needs to make an appt Continue to follow-up to PCP (Dr. Randhawa) about your gastroparesis. F/U with to consider a gastric stimulator implant. Continue to follow-up with Dr. Butler (neurologist) Continue Fentanyl 25 mcg patches F/u Dr. Goncalves as needed(she is declining a SCS) A prescription for narcan (naloxone) has been offered to the patient. Reports having at home. The pain management agreement was reviewed with the patient. The patient is aware of the risks/benefits of the medicatiion, potential for addiction/overdose, and how to safely store and dispose of the medication(s). She will sign the pain agreement the next time she comes to the office. She was started on this medication and has been maintained on it by Dr Marley and [employer] working with her. She is compliant with the pain management agreement and there have been no signs of medication misuse, abuse or diversion. Follow-up in 2 months-in office visit Katty Steiner APRN.CNP documented in this encounterReg[facility] Center06-06-2024 History of Present illness Narrative* Katty Steiner APRN.CNP - 11/20/2023 9:00 AM EDT Chief Complaint: Pain History of Present Illness: Roseanna Jones is a 63 year old year old female being seen at [facility] for a evaluation and/or management of her chronic pain. Roseanna Jones last had a virtual visit on 10/09/23. Since the last visit her pain level has remained stable. Pt.'s daughter accompanied her to the visit. VAS: 7/10 Pain Location: back, neck, leg, arms Radiation: down left leg Character: aching, burning Numbness/tingling: toes left foot and hand Burning: left foot Weakness: denies Falls: denies Worsening factors: walking, standing, bending, activity Relieving factors: heat, ice and rest Patient denies any bowel or bladder dysfunction. Since the last office visit the patients medical history has not changed. The patient denies any new diagnoses, hospital visits or ER visits. The patient is currently prescribed Fentanyl Patches and gabapentin from our office. The Fentanyl Patch is located on her right lower back. The medications are effective. The patient denies nausea, vomiting, constipation,rashes, drowsiness,weight gain, weight loss,dizziness,and fatigue. The OARRS report has been reviewed and is consistent with the patients medical history and medication intake. Last UDS: Reviewed - No inconsistencies noted.(+)ETOH Hx of DM Summary Report Date Value Ref Range Status 07/11/2023 FINAL Final Comment: Alcohol, Ethyl, Ur, QT Methadone, MS, Ur RFX Gabapentin, MS, Ur RFX ToxAssure Flex 23, Ur Test Result Flag Units Drug Present Alcohol, Ethyl 0.144 g/dL Sources of ethyl alcohol include alcoholic beverages or as a fermentation product of glucose; glucose is present in this specimen. Interpret result with caution, as the presence of ethyl alcohol is likely due, at least in part, to fermentation of glucose. Fentanyl 16 ng/mg creat Norfentanyl 27 ng/mg creat Source of fentanyl is a scheduled prescription medication, including IV, patch, and transmucosal formulations. Norfentanyl is an expected metabolite of fentanyl. Gabapentin PRESENT Test Result Flag Units Ref Range Creatinine 192 mg/dL >=20 Declared Medications: Medication list was not provided. For clinical consultation, please call . Lab Results Component Value Date SUMM FINAL 07/11/2023 Summary Report (Summary) Date Value Ref Range Status 03/28/2022 FINAL Final Comment: TOXASSURE COMP DRUG ANALYSIS,UR Test Result Flag Units Drug Present Morphine 3648 ng/mg creat Normorphine 79 ng/mg creat Potential sources of large amounts of morphine in the absence of codeine include administration of morphine or use of heroin. Normorphine is an expected metabolite of morphine. Oxycodone 4959 ng/mg creat Oxymorphone 3010 ng/mg creat Noroxycodone 2027 ng/mg creat Noroxymorphone 508 ng/mg creat Sources of oxycodone are scheduled prescription medications. Oxymorphone, noroxycodone, and noroxymorphone are expected metabolites of oxycodone. Oxymorphone is also available as a scheduled prescription medication. Gabapentin PRESENT Citalopram PRESENT Desmethylcitalopram PRESENT Desmethylcitalopram is an expected metabolite of citalopram or the enantiomeric form, escitalopram. Mirtazapine PRESENT Acetaminophen PRESENT Ibuprofen PRESENT Propranolol PRESENT Test Result Flag Units Ref Range Creatinine 63 mg/dL >=20 Declared Medications: Medication list was not provided. For clinical consultation, please call . PDMP website checked and validated. OARRS report reviewed on November 20, 2023 by Katty Steiner APRN.CNP and is consistent with the patients medical history and medication intake. ROS: See HPI 09/11/2023 10/09/2023 Pain Disability Index Family/Home Responsibilities: This category includes chores or duties performed around the house (e.g. yard work), errands or favors for other family members (e.g. driving the children to school) 7 7 Recreation: This category includes hobbies, sports, and other similar leisure time activities 7 7 Social Activity: This category refers to activities which involve participation with friends and acquaintances, other than family members. It includes parties, theater, concerts, dinning out, and other social functions 7 7 Occupation: This category refers to activities that are a part of or directly related to ones' job.This includes non-paying jobs as well, such as that of a housewife or volunteer worker 7 7 Sexual Behavior: This category refers to the frequency and quality of one's sex life 7 7 Self Care: This category includes activities which involve personal maintenance and independent daily living (e.g. taking a shower, driving, getting dress, etc) 7 7 Life Support Activity: This category refers to basic-life supporting behaviors such as eating, sleeping, and breathing 7 7 PDI Score 49 49 PAST MEDICAL HISTORY Diagnosis Date Abdominal pain, epigastric Abdominal pain, epigastric Abdominal pain, generalized Abdominal pain, right upper quadrant Acute gastritis without mention of hemorrhage Arachnoiditis Benign neoplasm of colon Benign neoplasm of duodenum, jejunum, and ileum Degeneration of intervertebral disc, site unspecified Depressive disorder, not elsewhere classified Diabetes (HCC) Diarrhea Diverticulitis of colon (without mention of hemorrhage)(562.11) Esophageal reflux Essential hypertension, malignant Headache(784.0) Hemorrhage of gastrointestinal tract, unspecified Internal hemorrhoids without mention of complication Nonorganic sleep disorder, unspecified Obstructive sleep apnea (adult) (pediatric) Other and unspecified hyperlipidemia Paralysis agitans (HCC) Parkinson's Disease Parkinson disease (HCC) PMH - PAST MEDICAL HISTORY OF glucose intolerant PAST SURGICAL HISTORY Procedure Laterality Date ARTHROSCOPY KNEE DIAGNOSTIC W/WO SYNOVIAL BX SPX left knee-reset patella COLONOSCOPY FLX DX W/COLLJ SPEC WHEN PFRMD 04/25/2006 Colonoscopy COLONOSCOPY FLX DX W/COLLJ SPEC WHEN PFRMD 09/20/2002 Colonoscopy COLONOSCOPY FLX DX W/COLLJ SPEC WHEN PFRMD 06/07/2015 Colonoscopy EGD TRANSORAL BIOPSY SINGLE/MULTIPLE 07/06/2009 ESOPHAGOGASTRODUODENOSCOPY TRANSORAL DIAGNOSTIC 04/25/2006 EGD ESOPHAGOGASTRODUODENOSCOPY TRANSORAL DIAGNOSTIC 09/20/2002 EGD ESOPHAGOGASTRODUODENOSCOPY TRANSORAL DIAGNOSTIC 06/07/2015 EGD LAPAROSCOPY SURG CHOLECYSTECTOMY 06/16/2000 Cholecystectomy, lap PAST SURGICAL HISTORY OF 06/16/1989 L-5, S-1 back surgery PAST SURGICAL HISTORY OF carpal tunnel PAST SURGICAL HISTORY OF Left 2019 IT Band Release SIGMOIDOSCOPY FLX DX W/COLLJ SPEC BR/WA IF PFRMD 07/06/2009 STEREOTACTIC CORE BIOPSY 04/11/2006 RIGHT BREAST BIOPSY TOTAL ABDOMINAL HYSTERECT W/WO RMVL TUBE OVARY 06/16/1994 Hysterectomy, JUANY FAMILY HISTORY Problem Relation Age of Onset Cancer Mother breast Diabetes Mother Heart Mother Heart Father Colon Cancer Father dx in his early forties Social History Tobacco Use Smoking status: Never Smokeless tobacco: Never Substance Use Topics Alcohol use: No Drug use: No Allergies: Acetazolamide Other: See Comments Pioglitazone Other: See Comments Amitriptyline Other: See Comments Biaxin [Clarithromy* Indocin [Indomethac* Penicillins Canagliflozin Other: See Comments Current Outpatient Medications Medication Sig fentaNYL (DURAGESIC) 25 mcg/hr Apply 1 Patch as directed every 72 hours for 30 days. As directed. Do not start before October 15, 2023. fentaNYL (DURAGESIC) 25 mcg/hr Apply 1 Patch as directed every 72 hours for 30 days. As directed. Do not start before November 14, 2023. gabapentin (NEURONTIN) 600 mg tablet Take 1 tablet by mouth three times a day for 60 days. Do not start before October 11, 2023. meloxicam (MOBIC) 7.5 mg tablet Take 1 tablet by mouth every afternoon. naloxone 4 mg/actuation nasal spray (NARCAN) Use 1 spray in one nostril as needed for overdose. Mayrepeat every 2 to 3 min in alternating nostrils until medical assistance is available ibuprofen (MOTRIN) 600 mg tablet TAKE 1 TABLET BY MOUTH THREE TIMES DAILY for 5 days TRULICITY 1.5 mg/0.5 mL pen injector inject 1 (ONE) pen (1.5mg) SUBCUTANEOUSLY EVERY WEEK glimepiride (AMARYL) 4 mg tablet Take 4 mg by mouth every morning. BIPAP esomeprazole (NEXIUM) 40 mg capsule Take 40 mg by mouth. No current facility-administered medications for this visit. PHYSICAL EXAMINATION: GENERAL: Healthy, alert, no distress, cooperative SKIN: Skin color, texture, turgor normal. No rashes or lesions. HEENT: PERRL, EOMI, and normal dentition Musculoskeletal:+5/5 motor strength on the right leg and +4/5 motor strength on the left leg. Negative SLR signs bilaterally. Diminished S1 reflexes bilaterally. Sensory is intact to light touch in all dermatomes. Diminished sensation in the left leg at all dermatomes compared to the right. Negative foot drop noted bilaterally. Patient has SLR of about 50 degrees on the left and 80 degrees on theright. Negative Tony's test on the right and positive Tony's test on the left. Lumbar flexion is < 90 degrees and lumbar extension is < 10 degrees. Tenderness at L4-5 midline paraspinal muscle, L>R. Toe and heel walking are normal. Slightly off balance. There is a well healed lumbar scar. There is no peripheral edema noted. ASSESSMENT: Patient is stable. Chronic pain is persistent. Medications are helping Roseanna Jones to have an improved quality of life. Patient compliance with Opioid Contract: patient is compliant Encounter Diagnosis ICD-10-CM 1. High risk medication use Z79.899 2. Encounter for long-term (current) use of medications Z79.899 3. Opioid dependence, continuous (HCC) F11.20 4. Postlaminectomy syndrome, lumbar region M96.1 5. Lumbar radiculopathy M54.16 6. Encounter for long-term (current) use of high-risk medication Z79.899 7. Myofascial pain syndrome M79.18 8. Obesity, Class I, BMI 30-34.9 E66.9 PLAN: The patient understands the goal of our treatment is a reduction in pain and/or an improved level of functioning with activities of daily living. If at any time the patient does not feel the medications are helping them to achieve these goals, the medications may be discontinued. The patient reports a reduction in pain and/or an improved level of functioning with activities of daily living, denies any significant adverse effects, is compliant with the pain management agreement and there are no signs of medication misuse, abuse or diversion; therefore, the medications will be continued. Ordered UDS-Urine drug screen was ordered today because of patient being moderate risk for possibleopioid abuse. Continue Gabapentin Continue to follow-up with Dr. Mcbride(At [facility]) - every 3-6 months. pt needs to make an appt Continue to follow-up to PCP (Dr. Randhawa) about your gastroparesis. F/U with to consider a gastric stimulator implant. Continue to follow-up with Dr. Butler (neurologist) Continue Fentanyl 25 mcg patches F/u Dr. Goncalves as needed(she is declining a SCS) A prescription for narcan (naloxone) has been offered to the patient. Reports having at home. The pain management agreement was reviewed with the patient. The patient is aware of the risks/benefits of the medicatiion, potential for addiction/overdose, and how to safely store and dispose of the medication(s). She will sign the pain agreement the next time she comes to the office. She was started on this medication and has been maintained on it by Dr Marley and [employer] working with her. She is compliant with the pain management agreement and there have been no signs of medication misuse, abuse or diversion. Follow-up in 2 months-in office visit Katty Steiner APRN.QUINCY documented in this encounterReg[facility] Center06-06-2024 Nurse Note* Xenia Montano MA - 11/20/2023 8:57 AM EDT Last dose pain meds taken 11/20/23 @ 7 am. [facility]* Xenia Montano MA - 11/20/2023 8:57 AM EDT Last dose pain meds taken 11/20/23 @ 7 am. documented in this encounterReg[facility] Center05-02-2024 Telephone encounter Note * Telephone Encounter - Xenia Montano MA - 10/16/2023 10:05 AM EDT Items addressed in this encounter: Health Maintenance Review Able to close encounter. Xenia Montano MA October 16, 2023 10:05 AM 10:05 AM [facility] Miscellaneous Notes* Telephone Encounter - Xenia Montano MA - 10/16/2023 10:05 AM EDT Items addressed in this encounter: Health Maintenance Review Able to close encounter. Xenia Montano MA October 16, 2023 10:05 AM 10:05 AM documented in this encounterReg[facility] Center04-25-2024 Telephone encounter Note * Telephone Encounter - Xenia Montano MA - 10/09/2023 2:31 PM EDT Items addressed in this encounter: MyChart Encounter I called patient back to get her rescheduled, in office with Katty at [facility] Able to close encounter. Xenia Montano MA October 09, 2023 2:31 PM 2:31 PM [place] [id number] Miscellaneous Notes* Telephone Encounter - Xenia Montano MA - 10/09/2023 2:31 PM EDT Items addressed in this encounter: MyChart Encounter I called patient back to get her rescheduled, in office with Katty at [facility] Able to close encounter. Xenia Montano MA October 09, 2023 2:31 PM 2:31 PM documented in this encounterRegional [facility] Tele[facility] encounter Note * Telephone Encounter - Xenia Montano MA - 10/09/2023 2:05 PM EDT Items addressed in this encounter: MyChart Encounter I called patient to get an in office visit scheduled with Katty, no answer I left detailed messagefor patient to please call the office so I can get her scheduled. Able to close encounter. Xenia Montnao MA October 09, 2023 2:05 PM 2:05 PM [address]25-2024 Miscellaneous Notes* Telephone Encounter - Xenia Montano MA - 10/09/2023 2:05 PM EDT Items addressed in this encounter: MyChart Encounter I called patient to get an in office visit scheduled with Katty, no answer I left detailed messagefor patient to please call the office so I can get her scheduled. Able to close encounter. Xenia Montano MA October 09, 2023 2:05 PM 2:05 PM [facility]25[facility]24 Instructions* Patient Instructions* Katty Steiner APRN.CNP - 10/09/2023 1:31 PM EDT Continue Gabapentin Continue to follow-up with Dr. Mcbride(At [facility]) - every 3-6 months. pt needs to make an appt Continue to follow-up to PCP (Dr. Randhawa) about your gastroparesis. F/U with to consider a gastric stimulator implant. Continue to follow-up with Dr. Butler (neurologist) Continue Fentanyl 25 mcg patches F/u Dr. Goncalves as needed(she is declining a SCS) A prescription for narcan (naloxone) has been offered to the patient. Reports having at home. The pain management agreement was reviewed with the patient. The patient is aware of the risks/benefits of the medicatiion, potential for addiction/overdose, and how to safely store and dispose of the medication(s). She will sign the pain agreement the next time she comes to the office. She was started on this medication and has been maintained on it by Dr Marley and [employer] working with her. She is compliant with the pain management agreement and there have been no signs of medication misuse, abuse or diversion. Follow-up in 2 months-in office visit Katty Steiner APRN.CNP documented [facility]Reg[facility]24 History of Present illness Narrative* Katty Steiner APRN.CNP - 10/09/2023 1:30 PM EDT This video visit was performed via [employer]. Patient consented to receive health care services via virtual visit for this encounter Provider Location: Non-[place] Patient Location: Patient Home or Place of Residence I have communicated my name and active licensure. The patient's identity and physical location wereverified at the time of this visit. Either the patient or their legal strategic partnership representative has been informed of the risks and benefits of -- and alternatives to -- treatment through a remote evaluation andconsents to proceed with the evaluation remotely. Chief Complaint: Pain History of Present Illness: Roseanna Jones is a 63 year old year old female being seen at [facility] for a evaluation and/or management of her chronic pain. Roseanna Jones last had a virtual visit on 09/11/23. Since the last visit her pain level has remained stable. VAS: 7/10 Pain Location: back, neck, leg, arms Radiation: down left leg Character: aching, burning Numbness/tingling: toes left foot and hand Burning: left foot Weakness: denies Falls: denies Worsening factors: walking, standing, bending, activity Relieving factors: heat, ice and rest Patient denies any bowel or bladder dysfunction. Since the last office visit the patients medical history has not changed. The patient denies any new diagnoses, hospital visits or ER visits. The patient is currently prescribed Fentanyl Patches and gabapentin from our office. The Fentanyl Patch is located on her lower back. The medications are effective. The patient denies nausea, vomiting, constipation,rashes, drowsiness,weight gain, weight loss,dizziness,and fatigue. The OARRS report has been reviewed and is consistent with the patients medical history and medication intake. Last UDS: UDS CONSISTENT(+)ETOH Hx. DM Summary Report Date Value Ref Range Status 07/11/2023 FINAL Final Comment: Alcohol, Ethyl, Ur, QT Methadone, MS, Ur RFX Gabapentin, MS, Ur RFX ToxAssure Flex 23, Ur Test Result Flag Units Drug Present Alcohol, Ethyl 0.144 g/dL Sources of ethyl alcohol include alcoholic beverages or as a fermentation product of glucose; glucose is present in this specimen. Interpret result with caution, as the presence of ethyl alcohol is likely due, at least in part, to fermentation of glucose. Fentanyl 16 ng/mg creat Norfentanyl 27 ng/mg creat Source of fentanyl is a scheduled prescription medication, including IV, patch, and transmucosal formulations. Norfentanyl is an expected metabolite of fentanyl. Gabapentin PRESENT Test Result Flag Units Ref Range Creatinine 192 mg/dL >=20 Declared Medications: Medication list was not provided. For clinical consultation, please call . Summary Report (Summary) Date Value Ref Range Status 03/28/2022 FINAL Final Comment: TOXASSURE COMP DRUG ANALYSIS,UR Test Result Flag Units Drug Present Morphine 3648 ng/mg creat Normorphine 79 ng/mg creat Potential sources of large amounts of morphine in the absence of codeine include administration of morphine or use of heroin. Normorphine is an expected metabolite of morphine. Oxycodone 4959 ng/mg creat Oxymorphone 3010 ng/mg creat Noroxycodone 2027 ng/mg creat Noroxymorphone 508 ng/mg creat Sources of oxycodone are scheduled prescription medications. Oxymorphone, noroxycodone, and noroxymorphone are expected metabolites of oxycodone. Oxymorphone is also available as a scheduled prescription medication. Gabapentin PRESENT Citalopram PRESENT Desmethylcitalopram PRESENT Desmethylcitalopram is an expected metabolite of citalopram or the enantiomeric form, escitalopram. Mirtazapine PRESENT Acetaminophen PRESENT Ibuprofen PRESENT Propranolol PRESENT Test Result Flag Units Ref Range Creatinine 63 mg/dL >=20 Declared Medications: Medication list was not provided. For clinical consultation, please call . The UDS has been reviewed and is consistent with medications prescribed. Summary Report (Summary) Date Value Ref Range Status 03/28/2022 FINAL Final Comment: TOXASSURE COMP DRUG ANALYSIS,UR Test Result Flag Units Drug Present Morphine 3648 ng/mg creat Normorphine 79 ng/mg creat Potential sources of large amounts of morphine in the absence of codeine include administration of morphine or use of heroin. Normorphine is an expected metabolite of morphine. Oxycodone 4959 ng/mg creat Oxymorphone 3010 ng/mg creat Noroxycodone 2027 ng/mg creat Noroxymorphone 508 ng/mg creat Sources of oxycodone are scheduled prescription medications. Oxymorphone, noroxycodone, and noroxymorphone are expected metabolites of oxycodone. Oxymorphone is also available as a scheduled prescription medication. Gabapentin PRESENT Citalopram PRESENT Desmethylcitalopram PRESENT Desmethylcitalopram is an expected metabolite of citalopram or the enantiomeric form, escitalopram. Mirtazapine PRESENT Acetaminophen PRESENT Ibuprofen PRESENT Propranolol PRESENT Test Result Flag Units Ref Range Creatinine 63 mg/dL >=20 Declared Medications: Medication list was not provided. For clinical consultation, please call . REVIEW OF SYSTEMS: GENERAL: No weight loss or fevers RESPIRATORY: Negative for cough CARDIOVASCULAR: Negative for chest pain GI: No nausea, vomiting, or diarrhea. PAST MEDICAL HISTORY Diagnosis Date Abdominal pain, epigastric Abdominal pain, epigastric Abdominal pain, generalized Abdominal pain, right upper quadrant Acute gastritis without mention of hemorrhage Arachnoiditis Benign neoplasm of colon Benign neoplasm of duodenum, jejunum, and ileum Degeneration of intervertebral disc, site unspecified Depressive disorder, not elsewhere classified Diabetes (HCC) Diarrhea Diverticulitis of colon (without mention of hemorrhage)(562.11) Esophageal reflux Essential hypertension, malignant Headache(784.0) Hemorrhage of gastrointestinal tract, unspecified Internal hemorrhoids without mention of complication Nonorganic sleep disorder, unspecified Obstructive sleep apnea (adult) (pediatric) Other and unspecified hyperlipidemia Paralysis agitans (HCC) Parkinson's Disease Parkinson disease ([facility]) PMH - PAST MEDICAL HISTORY OF glucose intolerant PAST SURGICAL HISTORY Procedure Laterality Date ARTHROSCOPY KNEE DIAGNOSTIC W/WO SYNOVIAL BX SPX left knee-reset patella COLONOSCOPY FLX DX W/COLLJ SPEC WHEN PFRMD 04/25/2006 Colonoscopy COLONOSCOPY FLX DX W/COLLJ SPEC WHEN PFRMD 09/20/2002 Colonoscopy COLONOSCOPY FLX DX W/COLLJ SPEC WHEN PFRMD 06/07/2015 Colonoscopy EGD TRANSORAL BIOPSY SINGLE/MULTIPLE 07/06/2009 ESOPHAGOGASTRODUODENOSCOPY TRANSORAL DIAGNOSTIC 04/25/2006 EGD ESOPHAGOGASTRODUODENOSCOPY TRANSORAL DIAGNOSTIC 09/20/2002 EGD ESOPHAGOGASTRODUODENOSCOPY TRANSORAL DIAGNOSTIC 06/07/2015 EGD LAPAROSCOPY SURG CHOLECYSTECTOMY 06/16/2000 Cholecystectomy, lap PAST SURGICAL HISTORY OF 06/16/1989 L-5, S-1 back surgery PAST SURGICAL HISTORY OF carpal tunnel PAST SURGICAL HISTORY OF Left 2019 IT Band Release SIGMOIDOSCOPY FLX DX W/COLLJ SPEC BR/WA IF PFRMD 07/06/2009 STEREOTACTIC CORE BIOPSY 04/11/2006 RIGHT BREAST BIOPSY TOTAL ABDOMINAL HYSTERECT W/WO RMVL TUBE OVARY 06/16/1994 Hysterectomy, JUANY FAMILY HISTORY Problem Relation Age of Onset Cancer Mother breast Diabetes Mother Heart Mother Heart Father Colon Cancer Father dx in his early forties Social History Tobacco Use Smoking status: Never Smokeless tobacco: Never Substance Use Topics Alcohol use: No Drug use: No Allergies: Acetazolamide Other: See Comments Pioglitazone Other: See Comments Amitriptyline Other: See Comments Biaxin [Clarithromy* Indocin [Indomethac* Penicillins Canagliflozin Other: See Comments Current Outpatient Medications Medication Sig fentaNYL (DURAGESIC) 25 mcg/hr Apply 1 Patch as directed every 72 hours for 30 days. As directed. Do not start before September 13, 2023. gabapentin (NEURONTIN) 600 mg tablet Take 1 tablet by mouth three times a day for 60 days. meloxicam (MOBIC) 7.5 mg tablet Take 1 tablet by mouth every afternoon. naloxone 4 mg/actuation nasal spray (NARCAN) Use 1 spray in one nostril as needed for overdose. Mayrepeat every 2 to 3 min in alternating nostrils until medical assistance is available ibuprofen (MOTRIN) 600 mg tablet TAKE 1 TABLET BY MOUTH THREE TIMES DAILY for 5 days TRULICITY 1.5 mg/0.5 mL pen injector inject 1 (ONE) pen (1.5mg) SUBCUTANEOUSLY EVERY WEEK glimepiride (AMARYL) 4 mg tablet Take 4 mg by mouth every morning. BIPAP esomeprazole (NEXIUM) 40 mg capsule Take 40 mg by mouth. No current facility-administered medications for this visit. PHYSICAL EXAMINATION: VIDEO EXAM: (performed via video enabled technology) GENERAL: alert and appropriate, in no distress, well-hydrated, well nourished and happy, smiling, interactive HEAD: normocephalic, no abnormality or lesion noted RESPIRATORY: breathing non-labored ASSESSMENT: Patient is stable. Chronic pain is persistent. Medications are helping Roseanna Jones to have an improved quality of life. Patient compliance with Opioid Contract: patient is compliant Encounter Diagnosis ICD-10-CM 1. High risk medication use Z79.899 2. Opioid dependence, continuous (HCC) F11.20 3. Myofascial pain syndrome M79.18 4. Encounter for long-term (current) use of medications Z79.899 5. Postlaminectomy syndrome, lumbar region M96.1 6. Encounter for long-term (current) use of high-risk medication Z79.899 7. Obesity, Class I, BMI 30-34.9 E66.9 8. Cervicalgia M54.2 9. Lumbar radiculopathy M54.16 PLAN: The patient understands the goal of our treatment is a reduction in pain and/or an improved level of functioning with activities of daily living. If at any time the patient does not feel the medications are helping them to achieve these goals, the medications may be discontinued. The patient reports a reduction in pain and/or an improved level of functioning with activities of daily living, denies any significant adverse effects, is compliant with the pain management agreement and there are no signs of medication misuse, abuse or diversion; therefore, the medications will be continued. Continue Gabapentin Continue to follow-up with Dr. Mcbride(At [facility]) - every 3-6 months. pt needs to make an appt Continue to follow-up to PCP (Dr. Randhawa) about your gastroparesis. F/U with to consider a gastric stimulator implant. Continue to follow-up with Dr. Butler (neurologist) Continue Fentanyl 25 mcg patches F/u Dr. Goncalves as needed(she is declining a SCS) A prescription for narcan (naloxone) has been offered to the patient. Reports having at home. The pain management agreement was reviewed with the patient. The patient is aware of the risks/benefits of the medicatiion, potential for addiction/overdose, and how to safely store and dispose of the medication(s). She will sign the pain agreement the next time she comes to the office. She was started on this medication and has been maintained on it by Dr Marley and [employer] working with her. She is compliant with the pain management agreement and there have been no signs of medication misuse, abuse or diversion. Follow-up in 2 months-in office visit Katty Steiner APRN.CNP documented in this encounterRegional [facility] Center04-25-2024 Telephone encounter Note * Telephone Encounter - Xenia Montano MA - 10/09/2023 7:13 AM EDT Items addressed in this encounter: MyChart Encounter So[employer] questionnaire sent Items addressed in this encounter: Virtual Visit Pre Check In Virtual visit precharting done Able to close encounter. Xenia Montano MA October 09, 2023 7:13 AM 7:13 AM Xenia Montano MA October 09, 2023 7:13 AM 7:13 AM [facility] Miscellaneous Notes* Telephone Encounter - Xenia Montano MA - 10/09/2023 7:13 AM EDT Items addressed in this encounter: MyChart Encounter Soapp questionnaire sent Items addressed in this encounter: Virtual Visit Pre Check In Virtual visit precharting done Able to close encounter. Xenia Montano MA October 09, 2023 7:13 AM 7:13 AM Xenia Montano MA October 09, 2023 7:13 AM 7:13 AM documented in [facility] encounterReg[facility] Center04-24-2024 Miscellaneous Notes* Telephone Encounter - Xenia Montano MA - 10/08/2023 8:47 AM EDT Items addressed in this encounter: Health Maintenance Review Able to close encounter. Xenia Montano MA October 08, 2023 8:47 AM 8:47 AM documented in [facility] encounterReg[facility] Center04-24-2024 Telephone encounter Note * Telephone Encounter - Xenia Montano MA - 10/08/2023 8:47 AM EDT Items addressed in this encounter: Health Maintenance Review Able to close encounter. Xenia Montano MA October 08, 2023 8:47 AM 8:47 AM [facility] Miscellaneous Notes* Telephone Encounter - Xenia Montano MA - 09/18/2023 10:50 AM EDT Items addressed in this encounter: Health Maintenance Review Able to close encounter. Xenia Montano MA September 18, 2023 10:50 AM 10:50 AM documented in this encounterCleveland [id number] Miscellaneous Notes* Telephone Encounter - Xenia Montano MA - 08/22/2023 3:26 PM EST Items addressed in this encounter: Health Maintenance Review Able to close encounter. Xenia Montano MA August 22, 2023 3:27 PM 3:27 PM documented in this encounterRegional Medical Center02-29-2024 Miscellaneous Notes* Telephone Encounter - Xenia Montano MA - 08/14/2023 3:06 PM EST Items addressed in this encounter: MyChart Encounter I scheduled pt a 1 month follow up virtual visit with Katty. Able to close encounter. Xenia Montano MA August 14, 2023 3:06 PM 3:06 PM documented in this encounterRegional Medical Center02-29-2024 Instructions* Patient Instructions* Katty Steiner, CASEY.MACHINE SPECIALIST - 08/14/2023 3:01 PM EST Continue Gabapentin Continue to follow-up with Dr. Mcbride(At [facility]) - every 3-6 months. pt needs to make an appt Continue to follow-up to PCP (Dr. Randhawa) about your gastroparesis. F/U with to consider a gastric stimulator implant. Continue to follow-up with Dr. Butler (neurologist) Continue Fentanyl 25 mcg patches F/u Dr. Goncalves as needed(she is declining a SCS) A prescription for narcan (naloxone) has been offered to the patient. Reports having at home. The pain management agreement was reviewed with the patient. The patient is aware of the risks/benefits of the medicatiion, potential for addiction/overdose, and how to safely store and dispose of the medication(s). She will sign the pain agreement the next time she comes to the office. She was started on this medication and has been maintained on it by Dr Marley and [employer] working with her. She is compliant with the pain management agreement and there have been no signs of medication misuse, abuse or diversion. Follow-up in 1 month Katty Steiner APRN.CNP documented in this encounterRegional Medical Center02-29-2024 History of Present illness Narrative* Katty Steiner APRN.CNP - 08/14/2023 2:45 PM EST This video visit was performed via [employer]. Patient consented to receive health care services via virtual visit for this encounter [facility] Patient Location: Patient Home or Place of Residence I have communicated my name and active licensure. The patient's identity and physical location wereverified at the time of this visit. Either the patient or their legal strategic partnership representative has been informed of the risks and benefits of -- and alternatives to -- treatment through a remote evaluation andconsents to proceed with the evaluation remotely. Chief Complaint: Pain History of Present Illness: Roseanna Jones is a 63 year old year old female being seen at [facility] for a evaluation and/or management of her chronic pain. Roseanna Jones last had a virtual visit on 07/04/23. Since the last visit her pain level has remained stable. VAS: 8/10 Pain Location: back, neck, leg, arms Radiation: down left leg Character: aching, burning Numbness/tingling: toes left foot and hand Burning: left foot Weakness: denies Falls: denies Worsening factors: walking, standing, bending, activity Relieving factors: heat, ice and rest Patient denies any bowel or bladder dysfunction. Since the last office visit the patients medical history has not changed. The patient denies any new diagnoses, hospital visits or ER visits. The patient is currently prescribed Fentanyl Patches and gabapentin from our office. The Fentanyl Patch is located on her lower back. The medications are effective. The patient denies nausea, vomiting, constipation,rashes, drowsiness,weight gain, weight loss,dizziness,and fatigue. The OARRS report has been reviewed and is consistent with the patients medical history and medication intake. Last UDS: UDS CONSISTENT(+)ETOH Hx. DM Summary Report Date Value Ref Range Status 07/11/2023 FINAL Final Comment: Alcohol, Ethyl, Ur, QT Methadone, MS, Ur RFX Gabapentin, MS, Ur RFX ToxAssure Flex 23, Ur Test Result Flag Units Drug Present Alcohol, Ethyl 0.144 g/dL Sources of ethyl alcohol include alcoholic beverages or as a fermentation product of glucose; glucose is present in this specimen. Interpret result with caution, as the presence of ethyl alcohol is likely due, at least in part, to fermentation of glucose. Fentanyl 16 ng/mg creat Norfentanyl 27 ng/mg creat Source of fentanyl is a scheduled prescription medication, including IV, patch, and transmucosal formulations. Norfentanyl is an expected metabolite of fentanyl. Gabapentin PRESENT Test Result Flag Units Ref Range Creatinine 192 mg/dL >=20 Declared Medications: Medication list was not provided. For clinical consultation, please call . Summary Report (Summary) Date Value Ref Range Status 03/28/2022 FINAL Final Comment: TOXASSURE COMP DRUG ANALYSIS,UR Test Result Flag Units Drug Present Morphine 3648 ng/mg creat Normorphine 79 ng/mg creat Potential sources of large amounts of morphine in the absence of codeine include administration of morphine or use of heroin. Normorphine is an expected metabolite of morphine. Oxycodone 4959 ng/mg creat Oxymorphone 3010 ng/mg creat Noroxycodone 2027 ng/mg creat Noroxymorphone 508 ng/mg creat Sources of oxycodone are scheduled prescription medications. Oxymorphone, noroxycodone, and noroxymorphone are expected metabolites of oxycodone. Oxymorphone is also available as a scheduled prescription medication. Gabapentin PRESENT Citalopram PRESENT Desmethylcitalopram PRESENT Desmethylcitalopram is an expected metabolite of citalopram or the enantiomeric form, escitalopram. Mirtazapine PRESENT Acetaminophen PRESENT Ibuprofen PRESENT Propranolol PRESENT Test Result Flag Units Ref Range Creatinine 63 mg/dL >=20 Declared Medications: Medication list was not provided. For clinical consultation, please call . The UDS has been reviewed and is consistent with medications prescribed. Summary Report (Summary) Date Value Ref Range Status 03/28/2022 FINAL Final Comment: TOXASSURE COMP DRUG ANALYSIS,UR Test Result Flag Units Drug Present Morphine 3648 ng/mg creat Normorphine 79 ng/mg creat Potential sources of large amounts of morphine in the absence of codeine include administration of morphine or use of heroin. Normorphine is an expected metabolite of morphine. Oxycodone 4959 ng/mg creat Oxymorphone 3010 ng/mg creat Noroxycodone 2027 ng/mg creat Noroxymorphone 508 ng/mg creat Sources of oxycodone are scheduled prescription medications. Oxymorphone, noroxycodone, and noroxymorphone are expected metabolites of oxycodone. Oxymorphone is also available as a scheduled prescription medication. Gabapentin PRESENT Citalopram PRESENT Desmethylcitalopram PRESENT Desmethylcitalopram is an expected metabolite of citalopram or the enantiomeric form, escitalopram. Mirtazapine PRESENT Acetaminophen PRESENT Ibuprofen PRESENT Propranolol PRESENT Test Result Flag Units Ref Range Creatinine 63 mg/dL >=20 Declared Medications: Medication list was not provided. For clinical consultation, please call . REVIEW OF SYSTEMS: GENERAL: No weight loss or fevers RESPIRATORY: Negative for cough CARDIOVASCULAR: Negative for chest pain GI: No nausea, vomiting, or diarrhea. PAST MEDICAL HISTORY Diagnosis Date Abdominal pain, epigastric Abdominal pain, epigastric Abdominal pain, generalized Abdominal pain, right upper quadrant Acute gastritis without mention of hemorrhage Arachnoiditis Benign neoplasm of colon Benign neoplasm of duodenum, jejunum, and ileum Degeneration of intervertebral disc, site unspecified Depressive disorder, not elsewhere classified Diabetes (HCC) Diarrhea Diverticulitis of colon (without mention of hemorrhage)(562.11) Esophageal reflux Essential hypertension, malignant Headache(784.0) Hemorrhage of gastrointestinal tract, unspecified Internal hemorrhoids without mention of complication Nonorganic sleep disorder, unspecified Obstructive sleep apnea (adult) (pediatric) Other and unspecified hyperlipidemia Paralysis agitans Parkinson's Disease Parkinson disease PMH - PAST MEDICAL HISTORY OF glucose intolerant PAST SURGICAL HISTORY Procedure Laterality Date ARTHROSCOPY KNEE DIAGNOSTIC W/WO SYNOVIAL BX SPX left knee-reset patella COLONOSCOPY FLX DX W/COLLJ SPEC WHEN PFRMD 04/25/2006 Colonoscopy COLONOSCOPY FLX DX W/COLLJ SPEC WHEN PFRMD 09/20/2002 Colonoscopy COLONOSCOPY FLX DX W/COLLJ SPEC WHEN PFRMD 06/07/2015 Colonoscopy EGD TRANSORAL BIOPSY SINGLE/MULTIPLE 07/06/2009 ESOPHAGOGASTRODUODENOSCOPY TRANSORAL DIAGNOSTIC 04/25/2006 EGD ESOPHAGOGASTRODUODENOSCOPY TRANSORAL DIAGNOSTIC 09/20/2002 EGD ESOPHAGOGASTRODUODENOSCOPY TRANSORAL DIAGNOSTIC 06/07/2015 EGD LAPAROSCOPY SURG CHOLECYSTECTOMY 06/16/2000 Cholecystectomy, lap PAST SURGICAL HISTORY OF 06/16/1989 L-5, S-1 back surgery PAST SURGICAL HISTORY OF carpal tunnel PAST SURGICAL HISTORY OF Left 2019 IT Band Release SIGMOIDOSCOPY FLX DX W/COLLJ SPEC BR/WA IF PFRMD 07/06/2009 STEREOTACTIC CORE BIOPSY 04/11/2006 RIGHT BREAST BIOPSY TOTAL ABDOMINAL HYSTERECT W/WO RMVL TUBE OVARY 06/16/1994 Hysterectomy, JUANY FAMILY HISTORY Problem Relation Age of Onset Cancer Mother breast Diabetes Mother Heart Mother Heart Father Colon Cancer Father dx in his early forties Social History Tobacco Use Smoking status: Never Smokeless tobacco: Never Substance Use Topics Alcohol use: No Drug use: No Allergies: Acetazolamide Other: See Comments Pioglitazone Other: See Comments Amitriptyline Other: See Comments Biaxin [Clarithromy* Indocin [Indomethac* Penicillins Canagliflozin Other: See Comments Current Outpatient Medications Medication Sig fentaNYL (DURAGESIC) 25 mcg/hr Apply 1 Patch as directed every 72 hours for 30 days. As directed. Do not start before July 14, 2023. gabapentin (NEURONTIN) 600 mg tablet Take 1 tablet by mouth three times a day for 60 days. Do not start before August 02, 2023. meloxicam (MOBIC) 7.5 mg tablet Take 1 tablet by mouth every afternoon. naloxone 4 mg/actuation nasal spray (NARCAN) Use 1 spray in one nostril as needed for overdose. Mayrepeat every 2 to 3 min in alternating nostrils until medical assistance is available ibuprofen (MOTRIN) 600 mg tablet TAKE 1 TABLET BY MOUTH THREE TIMES DAILY for 5 days TRULICITY 1.5 mg/0.5 mL pen injector inject 1 (ONE) pen (1.5mg) SUBCUTANEOUSLY EVERY WEEK glimepiride (AMARYL) 4 mg tablet Take 4 mg by mouth every morning. BIPAP esomeprazole (NEXIUM) 40 mg capsule Take 40 mg by mouth. No current facility-administered medications for this visit. PHYSICAL EXAMINATION: VIDEO EXAM: (performed via video enabled technology) GENERAL: alert and appropriate, in no distress, well-hydrated, well nourished and happy, smiling, interactive HEAD: normocephalic, no abnormality or lesion noted RESPIRATORY: breathing non-labored ASSESSMENT: Patient is stable. Chronic pain is persistent. Medications are helping Roseanna Jones to have an improved quality of life. Patient compliance with Opioid Contract: patient is compliant Encounter Diagnosis ICD-10-CM 1. High risk medication use Z79.899 2. Opioid dependence, continuous (HCC) F11.20 3. Obesity, Class I, BMI 30-34.9 E66.9 4. Myofascial pain syndrome M79.18 5. Encounter for long-term (current) use of medications Z79.899 6. Postlaminectomy syndrome, lumbar region M96.1 7. Lumbar radiculopathy M54.16 8. Encounter for long-term (current) use of high-risk medication Z79.899 PLAN: The patient understands the goal of our treatment is a reduction in pain and/or an improved level of functioning with activities of daily living. If at any time the patient does not feel the medications are helping them to achieve these goals, the medications may be discontinued. The patient reports a reduction in pain and/or an improved level of functioning with activities of daily living, denies any significant adverse effects, is compliant with the pain management agreement and there are no signs of medication misuse, abuse or diversion; therefore, the medications will be continued. Continue Gabapentin Continue to follow-up with Dr. Mcbride(At [facility]) - every 3-6 months. pt needs to make an appt Continue to follow-up to PCP (Dr. Randhawa) about your gastroparesis. F/U with to consider a gastric stimulator implant. Continue to follow-up with Dr. Butler (neurologist) Continue Fentanyl 25 mcg patches F/u Dr. Goncalves as needed(she is declining a SCS) A prescription for narcan (naloxone) has been offered to the patient. Reports having at home. The pain management agreement was reviewed with the patient. The patient is aware of the risks/benefits of the medicatiion, potential for addiction/overdose, and how to safely store and dispose of the medication(s). She will sign the pain agreement the next time she comes to the office. She was started on this medication and has been maintained on it by Dr Marley and [employer] working with her. She is compliant with the pain management agreement and there have been no signs of medication misuse, abuse or diversion. Follow-up in 1 month Katty Steiner APRN.CNP documented [facility]Reg[facility]-29-[facility]24 Miscellaneous Notes* Telephone Encounter - Xenia Montano MA - 08/14/2023 6:50 AM EST Items addressed in this encounter: MyChart Encounter Soapp questionnaire sent Items addressed in this encounter: Virtual Visit Pre Check In Virtual visit precharting done Able to close encounter. Xenia Montano MA August 14, 2023 6:50 AM 6:50 AM Xenia Montano MA August 14, 2023 6:50 AM 6:50 AM documented in this encounterReg[facility]02-02-2024 Miscellaneous Notes* Telephone Encounter - Xenia Montano MA - 07/18/2023 10:11 AM EST Items addressed in this encounter: Health Maintenance Review Able to close encounter. Xenia Montano MA July 18, 2023 10:11 AM 10:11 AM documented in this encounterRegional [facility] Center01-21-2024 Miscellaneous Notes* Telephone Encounter - Katty Steiner APRN.CNP - 07/06/2023 2:14 PM EST Please call the pt for a UDS-Pain contract needs signed. Thank you documented in this encounterRegional [facility] Center12-21-2023 Instructions* Patient Instructions* Katty Steiner APRN.CNP - 06/05/2023 11:00 AM EST Continue Gabapentin Continue to follow-up with Dr. Mcbride(At [facility]) - every 3-6 months. pt needs to make an appt Continue to follow-up to PCP (Dr. Randhawa) about your gastroparesis. F/U with to consider a gastric stimulator implant. Continue to follow-up with Dr. Butler (neurologist) Continue Fentanyl 25 mcg patches F/u Dr. Goncalves as needed The pain management agreement was reviewed with the patient. The patient is aware of the risks/benefits of the medicatiion, potential for addiction/overdose, and how to safely store and dispose of the medication(s). She will sign the pain agreement the next time she comes to the office. Follow-up in 1 month Katty Steiner APRN.CNP documented in this encounterRegional [facility] Center12-21-2023 History of Present illness Narrative* Katty Steiner APRN.CNP - 06/05/2023 10:35 AM EST This video visit was performed via [employer]. Patient consented to receive health care services via virtual visit for this encounter Provider [facility] Patient Location: Patient Home or Place of Residence I have communicated my name and active licensure. The patient's identity and physical location wereverified at the time of this visit. Either the patient or their legal strategic partnership representative has been informed of the risks and benefits of -- and alternatives to -- treatment through a remote evaluation andconsents to proceed with the evaluation remotely. Chief Complaint: Pain History of Present Illness: *Pt was sent an [employer] Link Roseanna Jones is a 63 year old year old female being seen at [facility] for a evaluation and/or management of her chronic pain. Roseanna Jones last had an office visit on 02/11/[address] Marley and a virtual visit with me on 03/14/23. Since the last visit her pain level has remained stable. Pt needs to call and make appt with Dr. Mcbride(comfort station supervisor at [facility])office. The pt saw Dr. Goncalves last week and according to her, he recommen ded a SCS, she is declining d/t already trying this. VAS: 7/10 Pain Location: back, neck, leg, arms Radiation: down left leg Character: aching, burning Numbness/tingling: toes left foot and hand Burning: left foot Weakness: denies Falls: denies Worsening factors: walking, standing, bending, activity Relieving factors: heat, ice and rest Patient denies any bowel or bladder dysfunction. Since the last office visit the patients medical history has not changed. The patient denies any new diagnoses, hospital visits or ER visits. The patient is currently prescribed Fentanyl Patches and gabapentin from our office. The Fentanyl Patch is located on her lower back. The medications are effective. The patient denies nausea, vomiting, constipation,rashes, drowsiness,weight gain, weight loss,dizziness,and fatigue. The OARRS report has been reviewed and is consistent with the patients medical history and medication intake. Last UDS: UDS CONSISTENT(+)ETOH Hx. DM Summary Report Date Value Ref Range Status 10/31/2022 FINAL Final Comment: Alcohol, Ethyl, Ur, QT Opiate Class, MS, Ur RFX Oxycodone Class, MS, Ur RFX Gabapentin, MS, Ur RFX Acetaminophen, MS, Ur RFX ToxAssure Flex 23, Ur Test Result Flag Units Drug Present Alcohol, Ethyl 0.170 g/dL Sources of ethyl alcohol include alcoholic beverages or as a fermentation product of glucose; glucose is present in this specimen. Interpret result with caution, as the presence of ethyl alcohol is likely due, at least in part, to fermentation of glucose. Morphine 8186 ng/mg creat Normorphine 118 ng/mg creat Potential sources of large amounts of morphine in the absence of codeine include administration of morphine or use of heroin. Normorphine is an expected metabolite of morphine. Oxycodone 849 ng/mg creat Oxymorphone 732 ng/mg creat Noroxycodone 479 ng/mg creat Noroxymorphone 101 ng/mg creat Sources of oxycodone are scheduled prescription medications. Oxymorphone, noroxycodone, and noroxymorphone are expected metabolites of oxycodone. Oxymorphone is also available as a scheduled prescription medication. Gabapentin PRESENT Acetaminophen PRESENT Test Result Flag Units Ref Range Creatinine 73 mg/dL >=20 Declared Medications: Medication list was not provided. For clinical consultation, please call . Summary Report (Summary) Date Value Ref Range Status 03/28/2022 FINAL Final Comment: TOXASSURE COMP DRUG ANALYSIS,UR Test Result Flag Units Drug Present Morphine 3648 ng/mg creat Normorphine 79 ng/mg creat Potential sources of large amounts of morphine in the absence of codeine include administration of morphine or use of heroin. Normorphine is an expected metabolite of morphine. Oxycodone 4959 ng/mg creat Oxymorphone 3010 ng/mg creat Noroxycodone 2027 ng/mg creat Noroxymorphone 508 ng/mg creat Sources of oxycodone are scheduled prescription medications. Oxymorphone, noroxycodone, and noroxymorphone are expected metabolites of oxycodone. Oxymorphone is also available as a scheduled prescription medication. Gabapentin PRESENT Citalopram PRESENT Desmethylcitalopram PRESENT Desmethylcitalopram is an expected metabolite of citalopram or the enantiomeric form, escitalopram. Mirtazapine PRESENT Acetaminophen PRESENT Ibuprofen PRESENT Propranolol PRESENT Test Result Flag Units Ref Range Creatinine 63 mg/dL >=20 Declared Medications: Medication list was not provided. For clinical consultation, please call . The UDS has been reviewed and is consistent with medications prescribed. Summary Report (Summary) Date Value Ref Range Status 03/28/2022 FINAL Final Comment: TOXASSURE COMP DRUG ANALYSIS,UR Test Result Flag Units Drug Present Morphine 3648 ng/mg creat Normorphine 79 ng/mg creat Potential sources of large amounts of morphine in the absence of codeine include administration of morphine or use of heroin. Normorphine is an expected metabolite of morphine. Oxycodone 4959 ng/mg creat Oxymorphone 3010 ng/mg creat Noroxycodone 2027 ng/mg creat Noroxymorphone 508 ng/mg creat Sources of oxycodone are scheduled prescription medications. Oxymorphone, noroxycodone, and noroxymorphone are expected metabolites of oxycodone. Oxymorphone is also available as a scheduled prescription medication. Gabapentin PRESENT Citalopram PRESENT Desmethylcitalopram PRESENT Desmethylcitalopram is an expected metabolite of citalopram or the enantiomeric form, escitalopram. Mirtazapine PRESENT Acetaminophen PRESENT Ibuprofen PRESENT Propranolol PRESENT Test Result Flag Units Ref Range Creatinine 63 mg/dL >=20 Declared Medications: Medication list was not provided. For clinical consultation, please call . REVIEW OF SYSTEMS: GENERAL: No weight loss or fevers RESPIRATORY: Negative for cough CARDIOVASCULAR: Negative for chest pain GI: No nausea, vomiting, or diarrhea. PAST MEDICAL HISTORY Diagnosis Date Abdominal pain, epigastric Abdominal pain, epigastric Abdominal pain, generalized Abdominal pain, right upper quadrant Acute gastritis without mention of hemorrhage Arachnoiditis Benign neoplasm of colon Benign neoplasm of duodenum, jejunum, and ileum Degeneration of intervertebral disc, site unspecified Depressive disorder, not elsewhere classified Diabetes (HCC) Diarrhea Diverticulitis of colon (without mention of hemorrhage)(562.11) Esophageal reflux Essential hypertension, malignant Headache(784.0) Hemorrhage of gastrointestinal tract, unspecified Internal hemorrhoids without mention of complication Nonorganic sleep disorder, unspecified Obstructive sleep apnea (adult) (pediatric) Other and unspecified hyperlipidemia Paralysis agitans Parkinson's Disease Parkinson disease PMH - PAST MEDICAL HISTORY OF glucose intolerant PAST SURGICAL HISTORY Procedure Laterality Date ARTHROSCOPY KNEE DIAGNOSTIC W/WO SYNOVIAL BX SPX left knee-reset patella COLONOSCOPY FLX DX W/COLLJ SPEC WHEN PFRMD 04/25/2006 Colonoscopy COLONOSCOPY FLX DX W/COLLJ SPEC WHEN PFRMD 09/20/2002 Colonoscopy COLONOSCOPY FLX DX W/COLLJ SPEC WHEN PFRMD 06/07/2015 Colonoscopy EGD TRANSORAL BIOPSY SINGLE/MULTIPLE 07/06/2009 ESOPHAGOGASTRODUODENOSCOPY TRANSORAL DIAGNOSTIC 04/25/2006 EGD ESOPHAGOGASTRODUODENOSCOPY TRANSORAL DIAGNOSTIC 09/20/2002 EGD ESOPHAGOGASTRODUODENOSCOPY TRANSORAL DIAGNOSTIC 06/07/2015 EGD LAPAROSCOPY SURG CHOLECYSTECTOMY 06/16/2000 Cholecystectomy, lap PAST SURGICAL HISTORY OF 06/16/1989 L-5, S-1 back surgery PAST SURGICAL HISTORY OF carpal tunnel PAST SURGICAL HISTORY OF Left 2019 IT Band Release SIGMOIDOSCOPY FLX DX W/COLLJ SPEC BR/WA IF PFRMD 07/06/2009 STEREOTACTIC CORE BIOPSY 04/11/2006 RIGHT BREAST BIOPSY TOTAL ABDOMINAL HYSTERECT W/WO RMVL TUBE OVARY 06/16/1994 Hysterectomy, JUANY FAMILY HISTORY Problem Relation Age of Onset Cancer Mother breast Diabetes Mother Heart Mother Heart Father Colon Cancer Father dx in his early forties Social History Tobacco Use Smoking status: Never Smokeless tobacco: Never Substance Use Topics Alcohol use: No Drug use: No Allergies: Acetazolamide Other: See Comments Pioglitazone Other: See Comments Amitriptyline Other: See Comments Biaxin [Clarithromy* Indocin [Indomethac* Penicillins Canagliflozin Other: See Comments Current Outpatient Medications Medication Sig fentaNYL (DURAGESIC) 25 mcg/hr Apply 1 Patch as directed every 72 hours for 30 days. As directed. Do not start before May 15, 2023. gabapentin (NEURONTIN) 600 mg tablet Take 1 tablet by mouth three times a day for 60 days. Do not start before May 17, 2023. meloxicam (MOBIC) 7.5 mg tablet Take 1 tablet by mouth every afternoon. naloxone 4 mg/actuation nasal spray (NARCAN) Use 1 spray in one nostril as needed for overdose. Mayrepeat every 2 to 3 min in alternating nostrils until medical assistance is available ibuprofen (MOTRIN) 600 mg tablet TAKE 1 TABLET BY MOUTH THREE TIMES DAILY for 5 days TRULICITY 1.5 mg/0.5 mL pen injector inject 1 (ONE) pen (1.5mg) SUBCUTANEOUSLY EVERY WEEK glimepiride (AMARYL) 4 mg tablet Take 4 mg by mouth every morning. BIPAP esomeprazole (NEXIUM) 40 mg capsule Take 40 mg by mouth. No current facility-administered medications for this visit. PHYSICAL EXAMINATION: VIDEO EXAM: (performed via video enabled technology) GENERAL: alert and appropriate, in no distress, well-hydrated, well nourished and happy, smiling, interactive HEAD: normocephalic, no abnormality or lesion noted RESPIRATORY: breathing non-labored ASSESSMENT: Patient is stable. Chronic pain is persistent. Medications are helping Roseanna Jones to have an improved quality of life. Patient compliance with Opioid Contract: patient is compliant Encounter Diagnosis ICD-10-CM 1. Encounter for long-term (current) use of medications Z79.899 2. Myofascial pain syndrome M79.18 3. High risk medication use Z79.899 4. Postlaminectomy syndrome, lumbar region M96.1 5. Cervicalgia M54.2 6. Lumbar radiculopathy M54.16 7. Encounter for long-term (current) use of high-risk medication Z79.899 8. Lumbar post-laminectomy syndrome M96.1 PLAN: The patient understands the goal of our treatment is a reduction in pain and/or an improved level of functioning with activities of daily living. If at any time the patient does not feel the medications are helping them to achieve these goals, the medications may be discontinued. The patient reports a reduction in pain and/or an improved level of functioning with activities of daily living, denies any significant adverse effects, is compliant with the pain management agreement and there are no signs of medication misuse, abuse or diversion; therefore, the medications will be continued. Continue Gabapentin Continue to follow-up with Dr. Mcbride(At [facility]) - every 3-6 months. pt needs to make an appt Continue to follow-up to PCP (Dr. Randhawa) about your gastroparesis. F/U with to consider a gastric stimulator implant. Continue to follow-up with Dr. Butler (neurologist) Continue Fentanyl 25 mcg patches F/u Dr. Goncalves as needed The pain management agreement was reviewed with the patient. The patient is aware of the risks/benefits of the medicatiion, potential for addiction/overdose, and how to safely store and dispose of the medication(s). She will sign the pain agreement the next time she comes to the office. Follow-up in 1 month Katty Steiner APRN.QUINCY documented in this encounterRegional Medical Center12-21-2023 Miscellaneous Notes* Telephone Encounter - Xenia Montano MA - 06/05/2023 10:21 AM EST Items addressed in this encounter: Telephone Encounter I called pt due to not being prechecked in for visit no answer I left a message stating if she was having issues logging on or needed to reschedule to call the office. Able to close encounter. Xenia Montano MA June 05, 2023 10:21 AM 10:21 AM documented in this encounterRegional Medical Center11-30-2023 Telephone encounter Note * Telephone Encounter - Mariel Flores PSS - 05/15/2023 3:03 PM EST CD READY FOR CERTIFIED OPHTHALMIC ASSISTANT AT [facility] Miscellaneous Notes* Telephone Encounter - Mariel Flores PSS - 05/15/2023 3:03 PM EST CD READY FOR CERTIFIED OPHTHALMIC ASSISTANT AT [facility] * Telephone Encounter - Donn Javed - 05/14/2023 2:48 PM EST Patient verified by name and . She is requesting to have her MRI from 03/25/23 burned onto a disc. Please advise patient when its ready for package pick up. documented in this encounterRegional Medical Center11-29-2023 Miscellaneous Notes* Telephone Encounter - Xenia Montano MA - 05/14/2023 2:59 PM EST Items addressed in this encounter: MyChart Encounter I scheduled pt a 1 month follow up virtual visit with Katty. Able to close encounter. Xenia Montano MA May 14, 2023 2:59 PM 2:59 PM documented in this encounterRegional Medical Center11-29-2023 Telephone encounter Note * Telephone Encounter - Donn Javed - 05/14/2023 2:48 PM EST Patient verified by name and . She is requesting to have her MRI from 03/25/23 burned onto a disc. Please advise patient when its ready for package pick up. [facility] Miscellaneous Notes* Telephone Encounter - Xenia Montano MA - 05/14/2023 2:43 PM EST Items addressed in this encounter: Telephone Encounter I called Dr Goncalves's office to check and see if they got all the information that was faxed to them for pt to have an appointment, they received it and stated she has a visit on May. I also faxed the mri report to them as well. Able to close encounter. Xenia Montano MA May 14, 2023 2:43 PM 2:43 PM documented in this encounterRegional Medical Center11-29-2023 Miscellaneous Notes* Telephone Encounter - Katty Steiner APRN.CNP - 05/14/2023 2:40 PM EST Please call Dr. Goncalves's office and make sure they have all of the information they need. Pt had aLumbar MRI on 03/25/23 and needs an appt. Thank you documented in this encounterRegional Medical Center11-29-2023 Instructions* Patient Instructions* Katty Steiner APRN.CNP - 05/14/2023 2:36 PM EST Continue Gabapentin Continue to follow-up with Dr. Mcbride(At [facility]) - every 3-6 months.Referral was placed and pt needs to make an appt Continue to follow-up to PCP (Dr. Randhawa) about your gastroparesis. F/U with to consider a gastric stimulator implant. Continue to follow-up with Dr. Butler (neurologist) Discussed MRI of lumbar spine with and without contrast Continue Fentanyl 25 mcg patches Discussed lab work CRP, sed rate, RA factor F/u Dr. Goncalves-.Referral was placed and pt needs to make an appt Follow-up in 1 month Katty Steiner APRN.CNP documented in this encounterRegional Medical Center11-29-2023 History of Present illness Narrative* Katty Steiner APRN.CNP - 05/14/2023 2:28 PM EST This video visit was performed via naaya video visit. Patient consented to receive health care services via virtual visit for this encounter Provider Location: Non-[place] Patient Location: Patient Home or Place of Residence I have communicated my name and active licensure. The patient's identity and physical location wereverified at the time of this visit. Either the patient or their legal strategic partnership representative has been informed of the risks and benefits of -- and alternatives to -- treatment through a remote evaluation andconsents to proceed with the evaluation remotely. Chief Complaint: Pain History of Present Illness: Roseanna Jones is a 63 year old year old female being seen at [facility] for a evaluation and/or management of her chronic pain. Roseanna Jones last had an office visit on 02/11/[address] Marley and a virtual visit with me on 03/14/23. Since the last visit her pain level has remained stable. Pt needs to call and make appts at Dr. Goncalves and Dr. Mcbride(comfort station supervisor at [facility])office. VAS: 7/10 Pain Location: back, neck, leg, arms Radiation: down left leg Character: aching, burning Numbness/tingling: toes left foot and hand Burning: left foot Weakness: denies Falls: denies Worsening factors: walking, standing, bending, activity Relieving factors: heat, ice and rest Patient denies any bowel or bladder dysfunction. Since the last office visit the patients medical history has not changed. The patient denies any new diagnoses, hospital visits or ER visits. The patient is currently prescribed Fentanyl Patches and gabapentin from our office. The Fentanyl Patch is located on her back. The medications are effective. The patient denies nausea, vomiting, constipation,rashes, drowsiness,weight gain, weight loss,dizziness,and fatigue. The OARRS report has been reviewed and is consistent with the patients medical history and medication intake. Last UDS: UDS CONSISTENT(+)ETOH Hx. DM Summary Report Date Value Ref Range Status 10/31/2022 FINAL Final Comment: Alcohol, Ethyl, Ur, QT Opiate Class, MS, Ur RFX Oxycodone Class, MS, Ur RFX Gabapentin, MS, Ur RFX Acetaminophen, MS, Ur RFX ToxAssure Flex 23, Ur Test Result Flag Units Drug Present Alcohol, Ethyl 0.170 g/dL Sources of ethyl alcohol include alcoholic beverages or as a fermentation product of glucose; glucose is present in this specimen. Interpret result with caution, as the presence of ethyl alcohol is likely due, at least in part, to fermentation of glucose. Morphine 8186 ng/mg creat Normorphine 118 ng/mg creat Potential sources of large amounts of morphine in the absence of codeine include administration of morphine or use of heroin. Normorphine is an expected metabolite of morphine. Oxycodone 849 ng/mg creat Oxymorphone 732 ng/mg creat Noroxycodone 479 ng/mg creat Noroxymorphone 101 ng/mg creat Sources of oxycodone are scheduled prescription medications. Oxymorphone, noroxycodone, and noroxymorphone are expected metabolites of oxycodone. Oxymorphone is also available as a scheduled prescription medication. Gabapentin PRESENT Acetaminophen PRESENT Test Result Flag Units Ref Range Creatinine 73 mg/dL >=20 Declared Medications: Medication list was not provided. For clinical consultation, please call . Summary Report (Summary) Date Value Ref Range Status 03/28/2022 FINAL Final Comment: TOXASSURE COMP DRUG ANALYSIS,UR Test Result Flag Units Drug Present Morphine 3648 ng/mg creat Normorphine 79 ng/mg creat Potential sources of large amounts of morphine in the absence of codeine include administration of morphine or use of heroin. Normorphine is an expected metabolite of morphine. Oxycodone 4959 ng/mg creat Oxymorphone 3010 ng/mg creat Noroxycodone 2027 ng/mg creat Noroxymorphone 508 ng/mg creat Sources of oxycodone are scheduled prescription medications. Oxymorphone, noroxycodone, and noroxymorphone are expected metabolites of oxycodone. Oxymorphone is also available as a scheduled prescription medication. Gabapentin PRESENT Citalopram PRESENT Desmethylcitalopram PRESENT Desmethylcitalopram is an expected metabolite of citalopram or the enantiomeric form, escitalopram. Mirtazapine PRESENT Acetaminophen PRESENT Ibuprofen PRESENT Propranolol PRESENT Test Result Flag Units Ref Range Creatinine 63 mg/dL >=20 Declared Medications: Medication list was not provided. For clinical consultation, please call . The UDS has been reviewed and is consistent with medications prescribed. Summary Report (Summary) Date Value Ref Range Status 03/28/2022 FINAL Final Comment: TOXASSURE COMP DRUG ANALYSIS,UR Test Result Flag Units Drug Present Morphine 3648 ng/mg creat Normorphine 79 ng/mg creat Potential sources of large amounts of morphine in the absence of codeine include administration of morphine or use of heroin. Normorphine is an expected metabolite of morphine. Oxycodone 4959 ng/mg creat Oxymorphone 3010 ng/mg creat Noroxycodone 2027 ng/mg creat Noroxymorphone 508 ng/mg creat Sources of oxycodone are scheduled prescription medications. Oxymorphone, noroxycodone, and noroxymorphone are expected metabolites of oxycodone. Oxymorphone is also available as a scheduled prescription medication. Gabapentin PRESENT Citalopram PRESENT Desmethylcitalopram PRESENT Desmethylcitalopram is an expected metabolite of citalopram or the enantiomeric form, escitalopram. Mirtazapine PRESENT Acetaminophen PRESENT Ibuprofen PRESENT Propranolol PRESENT Test Result Flag Units Ref Range Creatinine 63 mg/dL >=20 Declared Medications: Medication list was not provided. For clinical consultation, please call . REVIEW OF SYSTEMS: GENERAL: No weight loss or fevers RESPIRATORY: Negative for cough CARDIOVASCULAR: Negative for chest pain GI: No nausea, vomiting, or diarrhea. PAST MEDICAL HISTORY Diagnosis Date Abdominal pain, epigastric Abdominal pain, epigastric Abdominal pain, generalized Abdominal pain, right upper quadrant Acute gastritis without mention of hemorrhage Arachnoiditis Benign neoplasm of colon Benign neoplasm of duodenum, jejunum, and ileum Degeneration of intervertebral disc, site unspecified Depressive disorder, not elsewhere classified Diabetes (HCC) Diarrhea Diverticulitis of colon (without mention of hemorrhage)(562.11) Esophageal reflux Essential hypertension, malignant Headache(784.0) Hemorrhage of gastrointestinal tract, unspecified Internal hemorrhoids without mention of complication Nonorganic sleep disorder, unspecified Obstructive sleep apnea (adult) (pediatric) Other and unspecified hyperlipidemia Paralysis agitans Parkinson's Disease Parkinson disease PMH - PAST MEDICAL HISTORY OF glucose intolerant PAST SURGICAL HISTORY Procedure Laterality Date ARTHROSCOPY KNEE DIAGNOSTIC W/WO SYNOVIAL BX SPX left knee-reset patella COLONOSCOPY FLX DX W/COLLJ SPEC WHEN PFRMD 04/25/2006 Colonoscopy COLONOSCOPY FLX DX W/COLLJ SPEC WHEN PFRMD 09/20/2002 Colonoscopy COLONOSCOPY FLX DX W/COLLJ SPEC WHEN PFRMD 06/07/2015 Colonoscopy EGD TRANSORAL BIOPSY SINGLE/MULTIPLE 07/06/2009 ESOPHAGOGASTRODUODENOSCOPY TRANSORAL DIAGNOSTIC 04/25/2006 EGD ESOPHAGOGASTRODUODENOSCOPY TRANSORAL DIAGNOSTIC 09/20/2002 EGD ESOPHAGOGASTRODUODENOSCOPY TRANSORAL DIAGNOSTIC 06/07/2015 EGD LAPAROSCOPY SURG CHOLECYSTECTOMY 06/16/2000 Cholecystectomy, lap PAST SURGICAL HISTORY OF 06/16/1989 L-5, S-1 back surgery PAST SURGICAL HISTORY OF carpal tunnel PAST SURGICAL HISTORY OF Left 2019 IT Band Release SIGMOIDOSCOPY FLX DX W/COLLJ SPEC BR/WA IF PFRMD 07/06/2009 STEREOTACTIC CORE BIOPSY 04/11/2006 RIGHT BREAST BIOPSY TOTAL ABDOMINAL HYSTERECT W/WO RMVL TUBE OVARY 06/16/1994 Hysterectomy, JUANY FAMILY HISTORY Problem Relation Age of Onset Cancer Mother breast Diabetes Mother Heart Mother Heart Father Colon Cancer Father dx in his early forties Social History Tobacco Use Smoking status: Never Smokeless tobacco: Never Substance Use Topics Alcohol use: No Drug use: No Allergies: Acetazolamide Other: See Comments Pioglitazone Other: See Comments Amitriptyline Other: See Comments Biaxin [Clarithromy* Indocin [Indomethac* Penicillins Canagliflozin Other: See Comments Current Outpatient Medications Medication Sig fentaNYL (DURAGESIC) 25 mcg/hr Apply 1 Patch as directed every 72 hours for 30 days. As directed. Do not start before April 12, 2023. gabapentin (NEURONTIN) 600 mg tablet Take 1 tablet by mouth three times a day for 60 days. Do not start before April 05, 2023. meloxicam (MOBIC) 7.5 mg tablet Take 1 tablet by mouth every afternoon. naloxone 4 mg/actuation nasal spray (NARCAN) Use 1 spray in one nostril as needed for overdose. Mayrepeat every 2 to 3 min in alternating nostrils until medical assistance is available ibuprofen (MOTRIN) 600 mg tablet TAKE 1 TABLET BY MOUTH THREE TIMES DAILY for 5 days TRULICITY 1.5 mg/0.5 mL pen injector inject 1 (ONE) pen (1.5mg) SUBCUTANEOUSLY EVERY WEEK glimepiride (AMARYL) 4 mg tablet Take 4 mg by mouth every morning. BIPAP esomeprazole (NEXIUM) 40 mg capsule Take 40 mg by mouth. No current facility-administered medications for this visit. PHYSICAL EXAMINATION: VIDEO EXAM: (performed via video enabled technology) GENERAL: alert and appropriate, in no distress, well-hydrated, well nourished and happy, smiling, interactive HEAD: normocephalic, no abnormality or lesion noted RESPIRATORY: breathing non-labored ASSESSMENT: Patient is stable. Chronic pain is persistent. Medications are helping Roseanna Jones to have an improved quality of life. Patient compliance with Opioid Contract: patient is compliant Encounter Diagnosis ICD-10-CM 1. Encounter for long-term (current) use of medications Z79.899 2. Myofascial pain syndrome M79.18 3. High risk medication use Z79.899 4. Postlaminectomy syndrome, lumbar region M96.1 5. Cervicalgia M54.2 6. Lumbar radiculopathy M54.16 7. Encounter for long-term (current) use of high-risk medication Z79.899 8. Lumbar post-laminectomy syndrome M96.1 PLAN: The patient understands the goal of our treatment is a reduction in pain and/or an improved level of functioning with activities of daily living. If at any time the patient does not feel the medications are helping them to achieve these goals, the medications may be discontinued. The patient reports a reduction in pain and/or an improved level of functioning with activities of daily living, denies any significant adverse effects, is compliant with the pain management agreement and there are no signs of medication misuse, abuse or diversion; therefore, the medications will be continued. Continue Gabapentin Continue to follow-up with Dr. Mcbride(At [facility]) - every 3-6 months.Referral was placed and pt needs to make an appt Continue to follow-up to PCP (Dr. Randhawa) about your gastroparesis. F/U with to consider a gastric stimulator implant. Continue to follow-up with Dr. Butler (neurologist) Discussed MRI of lumbar spine with and without contrast Continue Fentanyl 25 mcg patches Discussed lab work CRP, sed rate, RA factor F/u Dr. Goncalves-.Referral was placed and pt needs to make an appt Follow-up in 1 month Katty Steiner APRN.MACHINE SPECIALIST documented [facility] encounterReg[facility]11-29-2023 Miscellaneous Notes* Telephone Encounter - Xenia Montano MA - 05/14/2023 8:37 AM EST Items addressed in this encounter: Virtual Visit Pre Check In Virtual visit precharting done Items addressed in this encounter: MyChart Encounter Soapp questionnaire sent Able to close encounter. Xenia Montano MA May 14, 2023 8:37 AM 8:37 AM Xenia Montano MA May 14, 2023 8:37 AM 8:37 AM documented in this encounterRegional [facility] Center11-01-2023 Miscellaneous Notes* Telephone Encounter - Xenia Montano MA - 04/16/2023 1:38 PM EDT Items addressed in this encounter: Health Maintenance Review Able to close encounter. Xenia Montano MA April 16, 2023 1:38 PM 1:38 PM documented in this encounterRegional [facility] Center10-25-2023 Miscellaneous Notes* Telephone Encounter - Xenia Montano MA - 04/09/2023 11:29 AM EDT Items addressed in this encounter: Fax/Forms Referral faxed to dr goncalves with 2 ov notes and demoagraphics. Able to close encounter. Xenia Montano MA April 09, 2023 11:29 AM 11:29 AM documented in this encounterRegional [facility] Center10-25-2023 Miscellaneous Notes* Telephone Encounter - Xenia Montano MA - 04/09/2023 11:21 AM EDT Items addressed in this encounter: Fax/Forms I faxed referral to Dr Mcbride at [facility] with 2 ov notes, and demoagraphics. Able to close encounter. Xenia Montano MA April 09, 2023 11:21 AM 11:21 AM documented in this encounterRegional [facility] Center10-23-2023 Miscellaneous Notes* Telephone Encounter - Xenia Montano MA - 04/07/2023 1:46 PM EDT Items addressed in this encounter: Other Indexed medical records from [facility]. Able to close encounter. Xenia Montano MA April 07, 2023 1:46 PM 1:46 PM documented in this encounterRegional Medical Center10-23-2023 Miscellaneous Notes* Telephone Encounter - Xenia Montano MA - 04/07/2023 11:17 AM EDT Items addressed in this encounter: Telephone Encounter I called [facility] to follow up on pt notes I requested and talked to vikki, she stated that they faxed them this morning at 10:45. Able to close encounter. Xenia Montano MA April 07, 2023 11:17 AM 11:17 AM documented in this encounterRegional Medical Center10-20-2023 Instructions* Patient Instructions* Katty Steiner APRN.CNP - 04/04/2023 1:28 PM EDT Continue Gabapentin Continue to follow-up with Dr. Mcbride(At [facility]) - every 3-6 months.Pt requesting a a referral Continue to follow-up to PCP (Dr. Randhawa) about your gastroparesis. F/U with to consider a gastric stimulator implant. Continue to follow-up with Dr. Butler (neurologist) Previously ordered MRI of lumbar spine with and without contrast-will be done on 03/25/23 Obtain medical records from [facility] Continue Fentanyl 25 mcg patches Discussed lab work CRP, sed rate, RA factor F/u Dr. Goncalves- Pt requesting a a referral Follow-up in 1 month Katty Steiner APRN.CNP documented in this encounterRegional Medical Center10-20-2023 Miscellaneous Notes* Telephone Encounter - Xenia Montano MA - 04/04/2023 1:16 PM EDT Items [facility] a 1 month follow up virtual visit with Katty. Able to close encounter. Xenia Montano MA April 04, 2023 1:16 PM 1:16 PM documented in this encounterRegional Medical Center10-20-2023 History of Present illness Narrative* Katty Steiner APRN.CNP - 04/04/2023 1:10 PM EDT This video visit was performed via naaya video visit. Patient consented to receive health care services via virtual visit for this encounter Provider Location: Non[place] Patient Location: Patient Home or Place of Residence I have communicated my name and active licensure. The patient's identity and physical location wereverified at the time of this visit. Either the patient or their legal strategic partnership representative has been informed of the risks and benefits of -- and alternatives to -- treatment through a remote evaluation andconsents to proceed with the evaluation remotely. Chief Complaint: Pain History of Present Illness: Roseanna Jones is a 62 year old year old female being seen at [facility] for a evaluation and/or management of her chronic pain. Roseanna Jones last had an office visit on 02/11/[address] Marley and a virtual visit with me on 03/14/23. Since the last visit her pain level has remained stable. She is requesting a referral to Dr. Goncalves and Dr. Mcbride(comfort station supervisor at [facility]). VAS: 7/10 Pain Location: back, neck, leg, arms Radiation: down left leg Character: aching, burning Numbness/tingling: toes left foot and hand Burning: left foot Weakness: denies Falls: denies Worsening factors: walking, standing, bending, activity Relieving factors: heat, ice and rest Patient denies any bowel or bladder dysfunction. Since the last office visit the patients medical history has not changed. The patient denies any new diagnoses, hospital visits or ER visits. The patient is currently prescribed Fentanyl Patches and gabapentin from our office. The Fentanyl Patch is located on her back. The medications are effective. The patient denies nausea, vomiting, constipation,rashes, drowsiness,weight gain, weight loss,dizziness,and fatigue. The [place] report has been reviewed and is consistent with the patients medical history and medication intake. Last UDS: UDS CONSISTENT(+)ETOH Hx. DM Summary Report Date Value Ref Range Status 10/31/2022 FINAL Final Comment: Alcohol, Ethyl, Ur, QT Opiate Class, MS, Ur RFX Oxycodone Class, MS, Ur RFX Gabapentin, MS, Ur RFX Acetaminophen, MS, Ur RFX ToxAssure Flex 23, Ur Test Result Flag Units Drug Present Alcohol, Ethyl 0.170 g/dL Sources of ethyl alcohol include alcoholic beverages or as a fermentation product of glucose; glucose is present in this specimen. Interpret result with caution, as the presence of ethyl alcohol is likely due, at least in part, to fermentation of glucose. Morphine 8186 ng/mg creat Normorphine 118 ng/mg creat Potential sources of large amounts of morphine in the absence of codeine include administration of morphine or use of heroin. Normorphine is an expected metabolite of morphine. Oxycodone 849 ng/mg creat Oxymorphone 732 ng/mg creat Noroxycodone 479 ng/mg creat Noroxymorphone 101 ng/mg creat Sources of oxycodone are scheduled prescription medications. Oxymorphone, noroxycodone, and noroxymorphone are expected metabolites of oxycodone. Oxymorphone is also available as a scheduled prescription medication. Gabapentin PRESENT Acetaminophen PRESENT Test Result Flag Units Ref Range Creatinine 73 mg/dL >=20 Declared Medications: Medication list was not provided. For clinical consultation, please call . Summary Report (Summary) Date Value Ref Range Status 03/28/2022 FINAL Final Comment: TOXASSURE COMP DRUG ANALYSIS,UR Test Result Flag Units Drug Present Morphine 3648 ng/mg creat Normorphine 79 ng/mg creat Potential sources of large amounts of morphine in the absence of codeine include administration of morphine or use of heroin. Normorphine is an expected metabolite of morphine. Oxycodone 4959 ng/mg creat Oxymorphone 3010 ng/mg creat Noroxycodone 2027 ng/mg creat Noroxymorphone 508 ng/mg creat Sources of oxycodone are scheduled prescription medications. Oxymorphone, noroxycodone, and noroxymorphone are expected metabolites of oxycodone. Oxymorphone is also available as a scheduled prescription medication. Gabapentin PRESENT Citalopram PRESENT Desmethylcitalopram PRESENT Desmethylcitalopram is an expected metabolite of citalopram or the enantiomeric form, escitalopram. Mirtazapine PRESENT Acetaminophen PRESENT Ibuprofen PRESENT Propranolol PRESENT Test Result Flag Units Ref Range Creatinine 63 mg/dL >=20 Declared Medications: Medication list was not provided. For clinical consultation, please call . The UDS has been reviewed and is consistent with medications prescribed. Summary Report (Summary) Date Value Ref Range Status 03/28/2022 FINAL Final Comment: TOXASSURE COMP DRUG ANALYSIS,UR Test Result Flag Units Drug Present Morphine 3648 ng/mg creat Normorphine 79 ng/mg creat Potential sources of large amounts of morphine in the absence of codeine include administration of morphine or use of heroin. Normorphine is an expected metabolite of morphine. Oxycodone 4959 ng/mg creat Oxymorphone 3010 ng/mg creat Noroxycodone 2027 ng/mg creat Noroxymorphone 508 ng/mg creat Sources of oxycodone are scheduled prescription medications. Oxymorphone, noroxycodone, and noroxymorphone are expected metabolites of oxycodone. Oxymorphone is also available as a scheduled prescription medication. Gabapentin PRESENT Citalopram PRESENT Desmethylcitalopram PRESENT Desmethylcitalopram is an expected metabolite of citalopram or the enantiomeric form, escitalopram. Mirtazapine PRESENT Acetaminophen PRESENT Ibuprofen PRESENT Propranolol PRESENT Test Result Flag Units Ref Range Creatinine 63 mg/dL >=20 Declared Medications: Medication list was not provided. For clinical consultation, please call . REVIEW OF SYSTEMS: GENERAL: No weight loss or fevers RESPIRATORY: Negative for cough CARDIOVASCULAR: Negative for chest pain GI: No nausea, vomiting, or diarrhea. PAST MEDICAL HISTORY Diagnosis Date Abdominal pain, epigastric Abdominal pain, epigastric Abdominal pain, generalized Abdominal pain, right upper quadrant Acute gastritis without mention of hemorrhage Arachnoiditis Benign neoplasm of colon Benign neoplasm of duodenum, jejunum, and ileum Degeneration of intervertebral disc, site unspecified Depressive disorder, not elsewhere classified Diabetes (HCC) Diarrhea Diverticulitis of colon (without mention of hemorrhage)(562.11) Esophageal reflux Essential hypertension, malignant Headache(784.0) Hemorrhage of gastrointestinal tract, unspecified Internal hemorrhoids without mention of complication Nonorganic sleep disorder, unspecified Obstructive sleep apnea (adult) (pediatric) Other and unspecified hyperlipidemia Paralysis agitans Parkinson's Disease Parkinson disease PMH - PAST MEDICAL HISTORY OF glucose intolerant PAST SURGICAL HISTORY Procedure Laterality Date ARTHROSCOPY KNEE DIAGNOSTIC W/WO SYNOVIAL BX SPX left knee-reset patella COLONOSCOPY FLX DX W/COLLJ SPEC WHEN PFRMD 04/25/2006 Colonoscopy COLONOSCOPY FLX DX W/COLLJ SPEC WHEN PFRMD 09/20/2002 Colonoscopy COLONOSCOPY FLX DX W/COLLJ SPEC WHEN PFRMD 06/07/2015 Colonoscopy EGD TRANSORAL BIOPSY SINGLE/MULTIPLE 07/06/2009 ESOPHAGOGASTRODUODENOSCOPY TRANSORAL DIAGNOSTIC 04/25/2006 EGD ESOPHAGOGASTRODUODENOSCOPY TRANSORAL DIAGNOSTIC 09/20/2002 EGD ESOPHAGOGASTRODUODENOSCOPY TRANSORAL DIAGNOSTIC 06/07/2015 EGD LAPAROSCOPY SURG CHOLECYSTECTOMY 06/16/2000 Cholecystectomy, lap PAST SURGICAL HISTORY OF 06/16/1989 L-5, S-1 back surgery PAST SURGICAL HISTORY OF carpal tunnel PAST SURGICAL HISTORY OF Left 2019 IT Band Release SIGMOIDOSCOPY FLX DX W/COLLJ SPEC BR/WA IF PFRMD 07/06/2009 STEREOTACTIC CORE BIOPSY 04/11/2006 RIGHT BREAST BIOPSY TOTAL ABDOMINAL HYSTERECT W/WO RMVL TUBE OVARY 06/16/1994 Hysterectomy, JUANY FAMILY HISTORY Problem Relation Age of Onset Cancer Mother breast Diabetes Mother Heart Mother Heart Father Colon Cancer Father dx in his early forties Social History Tobacco Use Smoking status: Never Smokeless tobacco: Never Substance Use Topics Alcohol use: No Drug use: No Allergies: Acetazolamide Other: See Comments Pioglitazone Other: See Comments Amitriptyline Other: See Comments Biaxin [Clarithromy* Indocin [Indomethac* Penicillins Canagliflozin Other: See Comments Current Outpatient Medications Medication Sig oxyCODONE-acetaminophen (PERCOCET) 5-325 mg tablet Take 1 tablet by mouth as directed for 14 days. Weaning prescription:Take 1 tab every day for a week then 1 tab every other day for a week and stop Do not start before March 22, 2023. [START ON 04/12/2023] fentaNYL (DURAGESIC) 25 mcg/hr Apply 1 Patch as directed every 72 hours for 30 days. As directed. Do not start before April 12, 2023. [START ON 04/05/2023] gabapentin (NEURONTIN) 600 mg tablet Take 1 tablet by mouth three times a dayfor 60 days. Do not start before April 05, 2023. meloxicam (MOBIC) 7.5 mg tablet Take 1 tablet by mouth every afternoon. naloxone 4 mg/actuation nasal spray (NARCAN) Use 1 spray in one nostril as needed for overdose. Mayrepeat every 2 to 3 min in alternating nostrils until medical assistance is available ibuprofen (MOTRIN) 600 mg tablet TAKE 1 TABLET BY MOUTH THREE TIMES DAILY for 5 days TRULICITY 1.5 mg/0.5 mL pen injector inject 1 (ONE) pen (1.5mg) SUBCUTANEOUSLY EVERY WEEK glimepiride (AMARYL) 4 mg tablet Take 4 mg by mouth every morning. BIPAP esomeprazole (NEXIUM) 40 mg capsule Take 40 mg by mouth. No current facility-administered medications for this visit. PHYSICAL EXAMINATION: VIDEO EXAM: (performed via video enabled technology) GENERAL: alert and appropriate, in no distress, well-hydrated, well nourished and happy, smiling, interactive HEAD: normocephalic, no abnormality or lesion noted RESPIRATORY: breathing non-labored ASSESSMENT: Patient is stable. Chronic pain is persistent. Medications are helping Roseanna Jones to have an improved quality of life. Patient compliance with Opioid Contract: patient is compliant Encounter Diagnosis ICD-10-CM 1. Encounter for long-term (current) use of medications Z79.899 2. High risk medication use Z79.899 3. Myofascial pain syndrome M79.18 4. Encounter for long-term (current) use of high-risk medication Z79.899 5. Postlaminectomy syndrome, lumbar region M96.1 6. Cervicalgia M54.2 7. Lumbar radiculopathy M54.16 PLAN: The patient understands the goal of our treatment is a reduction in pain and/or an improved level of functioning with activities of daily living. If at any time the patient does not feel the medications are helping them to achieve these goals, the medications may be discontinued. The patient reports a reduction in pain and/or an improved level of functioning with activities of daily living, denies any significant adverse effects, is compliant with the pain management agreement and there are no signs of medication misuse, abuse or diversion; therefore, the medications will be continued. Continue Gabapentin Continue to follow-up with Dr. Mcbride(At [facility]-Lupus/[facility]) - every 3-6 months.Pt requesting a a referral Continue to follow-up to PCP (Dr. Randhawa) about your gastroparesis. F/U with to consider a gastric stimulator implant. Continue to follow-up with Dr. Butler (neurologist) Previously ordered MRI of lumbar spine with and without contrast-will be done on 03/25/23 Obtain medical records from [facility] Onsite Continue Fentanyl 25 mcg patches Discussed lab work CRP, sed rate, RA factor F/u Dr. Goncalves- Pt requesting a a referral Follow-up in 1 month Katty Steiner APRN.QUINCY documented in this encounterRegional Medical Center10-20-2023 Miscellaneous Notes* Telephone Encounter - Xenia Montano MA - 04/04/2023 1:00 PM EDT Items addressed in this encounter: Other I called to check on therapy notes that was request, I had to leave a message on their secure voicemail. Able to close encounter. Xenia Montano MA April 04, 2023 1:00 PM 1:00 PM documented in this encounterRegional Medical Center10-19-2023 Miscellaneous Notes* Telephone Encounter - Xenia Montano MA - 04/03/2023 5:18 PM EDT Items addressed in this encounter: Virtual Visit Pre Check In Virtual visit precharting done Items addressed in this encounter: MyChart Encounter Soapp questionnaire sent Able to close encounter. Xenia Montano MA April 03, 2023 5:18 PM 5:18 PM Xenia Montano MA April 03, 2023 5:18 PM 5:18 PM documented in this encounterRegional Medical Center10-10-2023 NoteHNO ID: [id number] Author: Kyleigh Cortes RT(R) Service: ? Author Type: Technologist Type: Progress Notes Filed: 03/25/2023 12:54 PM Note Text: Radiology Service Progress Note DATE OF SERVICE: March 25, 2023 TIME: 12:54 PM PATIENT IDENTITY VERIFICATION COMPLETED USING TWO (2) STANDARD IDENTIFIERS: Name and Date of confirmed by patient verbally. FALL SCREENING: Has the patient had 2 falls in the last year or 1 fall with injury or currently using an Ambulatory Assistive Device (Walker, Cane, Wheelchair, Crutches, etc.)? No PATIENT GENDER DATA: Female. status: : No status: NO. PATIENT RELEVANT IMPLANT DATA REVIEWED: Yes ALLERGIES: Reviewed and unchanged CONTRAST ALLERGY: NO. EXAM: MRI - CONTRAST TYPE: GROUP II PERIPHERAL IV DATA: Ambulatory: A peripheral IV was started in the Left antecubital site with a Angio cath: 22 gauge. RADIOLOGY DEPARTMENT: MR; Exam(s) Completed: Spine: Lumbar spine SIGNATURE: RT Lobo(R) PATIENT NAME: Roseanna Jones DATE: March 25, 2023 TIME: 12:54 [facility]10-10-2023 History of Present illness Narrative* Kyleigh Cortes RT(R) - 03/25/2023 1:00 PM EDT Radiology Service Progress Note DATE OF SERVICE: March 25, 2023 TIME: 12:54 PM PATIENT IDENTITY VERIFICATION COMPLETED USING TWO (2) STANDARD IDENTIFIERS: Name and Date of confirmed by patient verbally. FALL SCREENING: Has the patient had 2 falls in the last year or 1 fall with injury or currently using an Ambulatory Assistive Device (Walker, Cane, Wheelchair, Crutches, etc.)? No PATIENT GENDER DATA: Female. status: : No status: NO. PATIENT RELEVANT IMPLANT DATA REVIEWED: Yes ALLERGIES: Reviewed and unchanged CONTRAST ALLERGY: NO. EXAM: MRI - CONTRAST TYPE: GROUP II PERIPHERAL IV DATA: Ambulatory: A peripheral IV was started in the Left antecubital site with a Angio cath: 22 gauge. RADIOLOGY DEPARTMENT: MR; Exam(s) Completed: Spine: Lumbar spine SIGNATURE: RT Lobo(R) PATIENT NAME: Roseanna Jones DATE: March 25, 2023 TIME: 12:54 PM documented in [facility] encounterReg[facility]09-29-2023 Instructions* Patient Instructions* Katty Steiner, STAFF CYTOTECHNOLOGIST.MACHINE SPECIALIST - 03/14/2023 4:46 PM EDT Weaning prescription for Percocet:take 2 tabs for the next week , then 1 tab for a week then 1 tab every other day for a week. Continue Gabapentin Continue to follow-up with Dr. Mcbride(At [facility]-Lupus/RA) - every 3-6 months. Has not followed up for the last 2 years. Will repeat lab work. Continue to follow-up to PCP (Dr. Randhawa) about your gastroparesis. F/U with to consider a gastric stimulator implant. Continue to follow-up with Dr. Butler (neurologist) Previously ordered MRI of lumbar spine with and without contrast-will be done on 03/25/23 Obtain medical records from [facility] On[facility] Continue Fentanyl 25 mcg patches Previously ordered lab work CRP, sed rate, RA factor-will be done on 03/25/23 Follow-up in 1 month Katty Steiner APRN.CNP documented in this encounterRegional [facility] Center09-29-2023 Miscellaneous Notes* Telephone Encounter - Xenia Montano MA - 03/14/2023 3:40 PM EDT Items addressed in this encounter: [employer] Encounter I scheduled pt follow up virtual visits with Katty. Able to close encounter. Xenia Montano MA March 14, 2023 3:40 PM 3:40 PM documented in this encounterRegional Medical Center09-29-2023 History of Present illness Narrative* Katty Steiner APRN.CNP - 03/14/2023 1:32 PM EDT This video visit was performed via naaya video visit. Patient consented to receive health care services via virtual visit for this encounter Provider [facility] Patient Location: Patient Home or Place of Residence I have communicated my name and active licensure. The patient's identity and physical location wereverified at the time of this visit. Either the patient or their legal strategic partnership representative has been informed of the risks and benefits of -- and alternatives to -- treatment through a remote evaluation andconsents to proceed with the evaluation remotely. Chief Complaint: Pain History of Present Illness: *Amwell Link sent to the pt Roseanna Jones is a 62 year old year old female being seen at [facility] for a evaluation and/or management of her chronic pain. Roseanna Jones last had an office visit on 02/11/[address] Marley. Since the last visit her pain level has remained stable. VAS: 7/10 Pain Location: back, neck, leg, arms Radiation: down left leg Character: aching, burning Numbness/tingling: toes left foot and hand Burning: left foot Weakness: denies Falls: denies Worsening factors: walking, standing, bending, activity Relieving factors: heat, ice and rest Patient denies any bowel or bladder dysfunction. Since the last office visit the patients medical history has not changed. The patient denies any new diagnoses, hospital visits or ER visits. The patient is currently prescribed Fentanyl Patches, percocet, and gabapentin from our office. Thelast dose of Percocet. The Fentanyl Patch is located on her stomach. Percocet was taken today at 8:30 a.m. The medications are effective. The patient denies nausea, vomiting, constipation,rashes, drowsiness,weight gain, weight loss,dizziness,and fatigue. The pt was instructed that she would receiveone more refill of Percocet, she is to start weaning off of the medication now that she has the Fentanyl Patches. She is to take 2 tabs for the next week , then 1 tab for a week then 1 tab every other day for a week. The OARRS report has been reviewed and is consistent with the patients medical history and medication intake. Last UDS: UDS CONSISTENT(+)ETOH Hx. DM Summary Report Date Value Ref Range Status 10/31/2022 FINAL Final Comment: Alcohol, Ethyl, Ur, QT Opiate Class, MS, Ur RFX Oxycodone Class, MS, Ur RFX Gabapentin, MS, Ur RFX Acetaminophen, MS, Ur RFX ToxAssure Flex 23, Ur Test Result Flag Units Drug Present Alcohol, Ethyl 0.170 g/dL Sources of ethyl alcohol include alcoholic beverages or as a fermentation product of glucose; glucose is present in this specimen. Interpret result with caution, as the presence of ethyl alcohol is likely due, at least in part, to fermentation of glucose. Morphine 8186 ng/mg creat Normorphine 118 ng/mg creat Potential sources of large amounts of morphine in the absence of codeine include administration of morphine or use of heroin. Normorphine is an expected metabolite of morphine. Oxycodone 849 ng/mg creat Oxymorphone 732 ng/mg creat Noroxycodone 479 ng/mg creat Noroxymorphone 101 ng/mg creat Sources of oxycodone are scheduled prescription medications. Oxymorphone, noroxycodone, and noroxymorphone are expected metabolites of oxycodone. Oxymorphone is also available as a scheduled prescription medication. Gabapentin PRESENT Acetaminophen PRESENT Test Result Flag Units Ref Range Creatinine 73 mg/dL >=20 Declared Medications: Medication list was not provided. For clinical consultation, please call . Summary Report (Summary) Date Value Ref Range Status 03/28/2022 FINAL Final Comment: TOXASSURE COMP DRUG ANALYSIS,UR Test Result Flag Units Drug Present Morphine 3648 ng/mg creat Normorphine 79 ng/mg creat Potential sources of large amounts of morphine in the absence of codeine include administration of morphine or use of heroin. Normorphine is an expected metabolite of morphine. Oxycodone 4959 ng/mg creat Oxymorphone 3010 ng/mg creat Noroxycodone 2027 ng/mg creat Noroxymorphone 508 ng/mg creat Sources of oxycodone are scheduled prescription medications. Oxymorphone, noroxycodone, and noroxymorphone are expected metabolites of oxycodone. Oxymorphone is also available as a scheduled prescription medication. Gabapentin PRESENT Citalopram PRESENT Desmethylcitalopram PRESENT Desmethylcitalopram is an expected metabolite of citalopram or the enantiomeric form, escitalopram. Mirtazapine PRESENT Acetaminophen PRESENT Ibuprofen PRESENT Propranolol PRESENT Test Result Flag Units Ref Range Creatinine 63 mg/dL >=20 Declared Medications: Medication list was not provided. For clinical consultation, please call . The UDS has been reviewed and is consistent with medications prescribed. Summary Report (Summary) Date Value Ref Range Status 03/28/2022 FINAL Final Comment: TOXASSURE COMP DRUG ANALYSIS,UR Test Result Flag Units Drug Present Morphine 3648 ng/mg creat Normorphine 79 ng/mg creat Potential sources of large amounts of morphine in the absence of codeine include administration of morphine or use of heroin. Normorphine is an expected metabolite of morphine. Oxycodone 4959 ng/mg creat Oxymorphone 3010 ng/mg creat Noroxycodone 2027 ng/mg creat Noroxymorphone 508 ng/mg creat Sources of oxycodone are scheduled prescription medications. Oxymorphone, noroxycodone, and noroxymorphone are expected metabolites of oxycodone. Oxymorphone is also available as a scheduled prescription medication. Gabapentin PRESENT Citalopram PRESENT Desmethylcitalopram PRESENT Desmethylcitalopram is an expected metabolite of citalopram or the enantiomeric form, escitalopram. Mirtazapine PRESENT Acetaminophen PRESENT Ibuprofen PRESENT Propranolol PRESENT Test Result Flag Units Ref Range Creatinine 63 mg/dL >=20 Declared Medications: Medication list was not provided. For clinical consultation, please call . REVIEW OF SYSTEMS: GENERAL: No weight loss or fevers RESPIRATORY: Negative for cough CARDIOVASCULAR: Negative for chest pain GI: No nausea, vomiting, or diarrhea. PAST MEDICAL HISTORY Diagnosis Date Abdominal pain, epigastric Abdominal pain, epigastric Abdominal pain, generalized Abdominal pain, right upper quadrant Acute gastritis without mention of hemorrhage Arachnoiditis Benign neoplasm of colon Benign neoplasm of duodenum, jejunum, and ileum Degeneration of intervertebral disc, site unspecified Depressive disorder, not elsewhere classified Diabetes (HCC) Diarrhea Diverticulitis of colon (without mention of hemorrhage)(562.11) Esophageal reflux Essential hypertension, malignant Headache(784.0) Hemorrhage of gastrointestinal tract, unspecified Internal hemorrhoids without mention of complication Nonorganic sleep disorder, unspecified Obstructive sleep apnea (adult) (pediatric) Other and unspecified hyperlipidemia Paralysis agitans (HCC) Parkinson's Disease Parkinson disease (HCC) PMH - PAST MEDICAL HISTORY OF glucose intolerant PAST SURGICAL HISTORY Procedure Laterality Date ARTHROSCOPY KNEE DIAGNOSTIC W/WO SYNOVIAL BX SPX left knee-reset patella COLONOSCOPY FLX DX W/COLLJ SPEC WHEN PFRMD 04/25/2006 Colonoscopy COLONOSCOPY FLX DX W/COLLJ SPEC WHEN PFRMD 09/20/2002 Colonoscopy COLONOSCOPY FLX DX W/COLLJ SPEC WHEN PFRMD 06/07/2015 Colonoscopy EGD TRANSORAL BIOPSY SINGLE/MULTIPLE 07/06/2009 ESOPHAGOGASTRODUODENOSCOPY TRANSORAL DIAGNOSTIC 04/25/2006 EGD ESOPHAGOGASTRODUODENOSCOPY TRANSORAL DIAGNOSTIC 09/20/2002 EGD ESOPHAGOGASTRODUODENOSCOPY TRANSORAL DIAGNOSTIC 06/07/2015 EGD LAPAROSCOPY SURG CHOLECYSTECTOMY 06/16/2000 Cholecystectomy, lap PAST SURGICAL HISTORY OF 06/16/1989 L-5, S-1 back surgery PAST SURGICAL HISTORY OF carpal tunnel PAST SURGICAL HISTORY OF Left 2019 IT Band Release SIGMOIDOSCOPY FLX DX W/COLLJ SPEC BR/WA IF PFRMD 07/06/2009 STEREOTACTIC CORE BIOPSY 04/11/2006 RIGHT BREAST BIOPSY TOTAL ABDOMINAL HYSTERECT W/WO RMVL TUBE OVARY 06/16/1994 Hysterectomy, JUANY FAMILY HISTORY Problem Relation Age of Onset Cancer Mother breast Diabetes Mother Heart Mother Heart Father Colon Cancer Father dx in his early forties Social History Tobacco Use Smoking status: Never Smokeless tobacco: Never Substance Use Topics Alcohol use: No Drug use: No Allergies: Acetazolamide Other: See Comments Pioglitazone Other: See Comments Amitriptyline Other: See Comments Biaxin [Clarithromy* Indocin [Indomethac* Penicillins Canagliflozin Other: See Comments Current Outpatient Medications Medication Sig fentaNYL (DURAGESIC) 25 mcg/hr Apply 1 Patch as directed every 72 hours for 30 days. As directed. Do not start before March 13, 2023. meloxicam (MOBIC) 7.5 mg tablet Take 1 tablet by mouth every afternoon. oxyCODONE-acetaminophen (PERCOCET) 5-325 mg tablet Take 1 tablet by mouth twice daily as needed forpain for up to 30 days. Do not start before February 20, 2023. naloxone 4 mg/actuation nasal spray (NARCAN) Use 1 spray in one nostril as needed for overdose. Mayrepeat every 2 to 3 min in alternating nostrils until medical assistance is available gabapentin (NEURONTIN) 600 mg tablet Take 1 tablet by mouth three times daily for 60 days. Do not start before February 07, 2023. ibuprofen (MOTRIN) 600 mg tablet TAKE 1 TABLET BY MOUTH THREE TIMES DAILY for 5 days TRULICITY 1.5 mg/0.5 mL pen injector inject 1 (ONE) pen (1.5mg) SUBCUTANEOUSLY EVERY WEEK glimepiride (AMARYL) 4 mg tablet Take 4 mg by mouth every morning. BIPAP esomeprazole (NEXIUM) 40 mg capsule Take 40 mg by mouth. No current facility-administered medications for this visit. PHYSICAL EXAMINATION: VIDEO EXAM: (performed via video enabled technology) GENERAL: alert and appropriate, in no distress, well-hydrated, well nourished and happy, smiling, interactive HEAD: normocephalic, no abnormality or lesion noted RESPIRATORY: breathing non-labored ASSESSMENT: Patient is stable. Chronic pain is persistent. Medications are helping Roseanna Jones to have an improved quality of life. Patient compliance with Opioid Contract: patient is compliant Encounter Diagnosis ICD-10-CM 1. Encounter for long-term (current) use of medications Z79.899 2. Myofascial pain syndrome M79.18 3. High risk medication use Z79.899 4. Cervicalgia M54.2 5. Lumbar radiculopathy M54.16 6. Lumbar post-laminectomy syndrome M96.1 7. Opioid dependence, continuous (HCC) F11.20 8. Encounter for long-term (current) use of high-risk medication Z79.899 9. Postlaminectomy syndrome, lumbar region M96.1 PLAN: The patient understands the goal of our treatment is a reduction in pain and/or an improved level of functioning with activities of daily living. If at any time the patient does not feel the medications are helping them to achieve these goals, the medications may be discontinued. The patient reports a reduction in pain and/or an improved level of functioning with activities of daily living, denies any significant adverse effects, is compliant with the pain management agreement and there are no signs of medication misuse, abuse or diversion; therefore, the medications will be continued. Weaning prescription for Percocet:start today:take 2 tabs for the next week , then 1 tab for a weekthen 1 tab every other day for a week. Continue Gabapentin Continue to follow-up with Dr. Mcbride(At [facility]-Lupus/RA) - every 3-6 months. Has not followed up for the last 2 years. Will repeat lab work. Continue to follow-up to PCP (Dr. Randhawa) about your gastroparesis. F/U with to consider a gastric stimulator implant. Continue to follow-up with Dr. Butler (neurologist) Previously ordered MRI of lumbar spine with and without contrast-will be done on 03/25/23 Obtain medical records from [facility] Continue Fentanyl 25 mcg patches Previously ordered lab work CRP, sed rate, RA factor-will be done on 03/25/23 Follow-up in 1 month Katty Steiner APRN.CNP documented in this encounterRegional Medical Center09-25-2023 Miscellaneous Notes* Telephone Encounter - Katty Steiner APRN.CNP - 03/10/2023 9:08 PM EDT The following approved medication requests have been transmitted electronically. Requested Prescriptions Signed Prescriptions Disp Refills fentaNYL (DURAGESIC) 25 mcg/hr 10 Patch 0 Sig: Apply 1 Patch as directed every 72 hours for 30 days. As directed. Do not start before March 13, 2023. Authorizing Provider: KATTY STEINER APRN.CNP * Telephone Encounter - Dalia Posey RN - 03/10/2023 10:58 AM EDT Patient phones requesting refills as follows: Requested Prescriptions Pending Prescriptions Disp Refills fentaNYL (DURAGESIC) 25 mcg/hr 10 Patch 0 Sig: Apply 1 Patch as directed every 72 hours for 30 days. As directed. Last UDS: Summary Report Date Value Ref Range Status 10/31/2022 FINAL Final Comment: Alcohol, Ethyl, Ur, QT Opiate Class, MS, Ur RFX Oxycodone Class, MS, Ur RFX Gabapentin, MS, Ur RFX Acetaminophen, MS, Ur RFX ToxAssure Flex 23, Ur Test Result Flag Units Drug Present Alcohol, Ethyl 0.170 g/dL Sources of ethyl alcohol include alcoholic beverages or as a fermentation product of glucose; glucose is present in this specimen. Interpret result with caution, as the presence of ethyl alcohol is likely due, at least in part, to fermentation of glucose. Morphine 8186 ng/mg creat Normorphine 118 ng/mg creat Potential sources of large amounts of morphine in the absence of codeine include administration of morphine or use of heroin. Normorphine is an expected metabolite of morphine. Oxycodone 849 ng/mg creat Oxymorphone 732 ng/mg creat Noroxycodone 479 ng/mg creat Noroxymorphone 101 ng/mg creat Sources of oxycodone are scheduled prescription medications. Oxymorphone, noroxycodone, and noroxymorphone are expected metabolites of oxycodone. Oxymorphone is also available as a scheduled prescription medication. Gabapentin PRESENT Acetaminophen PRESENT Test Result Flag Units Ref Range Creatinine 73 mg/dL >=20 Declared Medications: Medication list was not provided. For clinical consultation, please call . @FLOW([id number])@ Lab Results Component Value Date SUMM FINAL 10/31/2022 Summary Report (Summary) Date Value Ref Range Status 03/28/2022 FINAL Final Comment: TOXASSURE COMP DRUG ANALYSIS,UR Test Result Flag Units Drug Present Morphine 3648 ng/mg creat Normorphine 79 ng/mg creat Potential sources of large amounts of morphine in the absence of codeine include administration of morphine or use of heroin. Normorphine is an expected metabolite of morphine. Oxycodone 4959 ng/mg creat Oxymorphone 3010 ng/mg creat Noroxycodone 2027 ng/mg creat Noroxymorphone 508 ng/mg creat Sources of oxycodone are scheduled prescription medications. Oxymorphone, noroxycodone, and noroxymorphone are expected metabolites of oxycodone. Oxymorphone is also available as a scheduled prescription medication. Gabapentin PRESENT Citalopram PRESENT Desmethylcitalopram PRESENT Desmethylcitalopram is an expected metabolite of citalopram or the enantiomeric form, escitalopram. Mirtazapine PRESENT Acetaminophen PRESENT Ibuprofen PRESENT Propranolol PRESENT Test Result Flag Units Ref Range Creatinine 63 mg/dL >=20 Declared Medications: Medication list was not provided. For clinical consultation, please call . Please review and advise. Dalia Posey, RN documented in this encounterRegional Medical Center09-07-2023 Miscellaneous Notes* Telephone Encounter - Xenia Montano MA - 02/20/2023 7:57 AM EDT Items addressed in this encounter: Health Maintenance Review Able to close encounter. Xenia Montano MA February 20, 2023 7:57 AM 7:57 AM documented in this encounterRegional Medical Center08-29-2023 History of Present illness Narrative* Joyce Marley DO - 02/11/2023 11:00 AM EDTSumjaja: Pain Management follow-up DATE: February 11, 2023 Chief Complaint: back, neck,left leg, arms History of Present Illness: Roseanna Jones is a 62 year old female being seen at [facility] for a evaluation and/or management of their chronic pain. The patient was last seen kaveh virtual health visit on 01/10/2023 by Katty Steiner NP, and the plan of care was as follows: Continue MS Contin and percocet Continue Diamox prn Continue Zanaflex Rx'D by PCP Follow-up with Dr. Mcbride(At [facility]-Lupus/RA) Continue Gabapentin Encouraged to talk to PCP (Dr. Randhawa) about your gastroparesis F/U with Dr. Harper (IT bands) Follow-up with Dr. Butler (neurologist) Follow-up in 1 month She had PT in 2021 at [facility]. She is taking the medications as prescribed with benefit. She also has gastroparesis and is unclear about how the medications are affected d/t this condition with impaired absorption. She was on Fentanyl patches in the past and these were discontinued. She has not followed up with for Lupus and has not had any recent lab work done. We discussed the MRI of the pelvis from 12/21/2020 that showed focal defect in the left iliotibial band with herniation of muscle and fat likely sequela of prior surgery. No significant bursal thickening or fluid collections adjacent to the iliotibial band. VAS: 8/10 with medications Pain Location: back, neck,left leg, arms Radiation: down left leg past knee into foot. Character: aching, burning, tightness Numbness/tingling: toes, left foot, and hand Burning: left foot Weakness: Yes, left leg Falls: denies. Denies stumbling. Uses a cane for ambulation Worsening factors: walking, standing, bending, activity Relieving factors: heat, ice and rest Patient denies any bowel or bladder dysfunction. She gets 2 hours of uninterrupted sleep at nights and wakes up feeling unrested in the mornings. Since the last office visit the patients medical history has not changed. The patient denies any new diagnoses, hospital visits or ER visits. The patient is currently prescribed morphine, percocet, and gabapentin from our office. The patientdenies nausea, vomiting, constipation,rashes, drowsiness,weight gain, weight loss,dizziness,and fatigue. The OARRS report has been reviewed and is consistent with the patients medical history and medication intake. Last UDS: consistant Summary Report Date Value Ref Range Status 10/31/2022 FINAL Final Comment: Alcohol, Ethyl, Ur, QT Opiate Class, MS, Ur RFX Oxycodone Class, MS, Ur RFX Gabapentin, MS, Ur RFX Acetaminophen, MS, Ur RFX ToxAssure Flex 23, Ur Test Result Flag Units Drug Present Alcohol, Ethyl 0.170 g/dL Sources of ethyl alcohol include alcoholic beverages or as a fermentation product of glucose; glucose is present in this specimen. Interpret result with caution, as the presence of ethyl alcohol is likely due, at least in part, to fermentation of glucose. Morphine 8186 ng/mg creat Normorphine 118 ng/mg creat Potential sources of large amounts of morphine in the absence of codeine include administration of morphine or use of heroin. Normorphine is an expected metabolite of morphine. Oxycodone 849 ng/mg creat Oxymorphone 732 ng/mg creat Noroxycodone 479 ng/mg creat Noroxymorphone 101 ng/mg creat Sources of oxycodone are scheduled prescription medications. Oxymorphone, noroxycodone, and noroxymorphone are expected metabolites of oxycodone. Oxymorphone is also available as a scheduled prescription medication. Gabapentin PRESENT Acetaminophen PRESENT Test Result Flag Units Ref Range Creatinine 73 mg/dL >=20 Declared Medications: Medication list was not provided. For clinical consultation, please call . Summary Report (Summary) Date Value Ref Range Status 03/28/2022 FINAL Final Comment: TOXASSURE COMP DRUG ANALYSIS,UR Test Result Flag Units Drug Present Morphine 3648 ng/mg creat Normorphine 79 ng/mg creat Potential sources of large amounts of morphine in the absence of codeine include administration of morphine or use of heroin. Normorphine is an expected metabolite of morphine. Oxycodone 4959 ng/mg creat Oxymorphone 3010 ng/mg creat Noroxycodone 2027 ng/mg creat Noroxymorphone 508 ng/mg creat Sources of oxycodone are scheduled prescription medications. Oxymorphone, noroxycodone, and noroxymorphone are expected metabolites of oxycodone. Oxymorphone is also available as a scheduled prescription medication. Gabapentin PRESENT Citalopram PRESENT Desmethylcitalopram PRESENT Desmethylcitalopram is an expected metabolite of citalopram or the enantiomeric form, escitalopram. Mirtazapine PRESENT Acetaminophen PRESENT Ibuprofen PRESENT Propranolol PRESENT Test Result Flag Units Ref Range Creatinine 63 mg/dL >=20 Declared Medications: Medication list was not provided. For clinical consultation, please call . Chronic Pain Functional Assessment Tools Pain Disability Index: Pain Disability Index 01/10/2023 02/11/2023 Family/Home Responsibilities 7 8 Recreation 7 8 Social Activity 7 8 Occupation 7 8 Sexual Behavior 7 8 Self Care 7 8 Life Support Activity 7 8 PDI Score 49 56 Pain Enjoyment of Life and General Activity Scale (0-10): PEG: A Three-Item Scale Assessing Pain Intensity and Interference What number best describes your pain on average in the past week?: 7 (02/11/2023 11:00 AM) What number best describes how, during the past week, pain has interfered with your enjoyment of life?: 6 (02/11/2023 11:00 AM) What number best describes how, during the past week, pain has interfered with your general activity?: 8 (02/11/2023 11:00 AM) REVIEW OF SYSTEMS: GENERAL: No weight loss, malaise or fevers RESPIRATORY: Negative for cough, hemoptysis, wheezing, COPD, dyspnea or shortness of breath. CARDIOVASCULAR: Negative for chest pain, leg swelling, hypertension, CHF or palpitations GI: No nausea, vomiting, or diarrhea. MUSCULOSKELETAL: back, neck,left leg, arms PAST MEDICAL HISTORY Diagnosis Date Abdominal pain, epigastric Abdominal pain, epigastric Abdominal pain, generalized Abdominal pain, right upper quadrant Acute gastritis without mention of hemorrhage Arachnoiditis Benign neoplasm of colon Benign neoplasm of duodenum, jejunum, and ileum Degeneration of intervertebral disc, site unspecified Depressive disorder, not elsewhere classified Diabetes (HCC) Diarrhea Diverticulitis of colon (without mention of hemorrhage)(562.11) Esophageal reflux Essential hypertension, malignant Headache(784.0) Hemorrhage of gastrointestinal tract, unspecified Internal hemorrhoids without mention of complication Nonorganic sleep disorder, unspecified Obstructive sleep apnea (adult) (pediatric) Other and unspecified hyperlipidemia Paralysis agitans (HCC) Parkinson's Disease Parkinson disease (HCC) PMH - PAST MEDICAL HISTORY OF glucose intolerant PAST SURGICAL HISTORY Procedure Laterality Date ARTHROSCOPY KNEE DIAGNOSTIC W/WO SYNOVIAL BX SPX left knee-reset patella COLONOSCOPY FLX DX W/COLLJ SPEC WHEN PFRMD 04/25/2006 Colonoscopy COLONOSCOPY FLX DX W/COLLJ SPEC WHEN PFRMD 09/20/2002 Colonoscopy COLONOSCOPY FLX DX W/COLLJ SPEC WHEN PFRMD 06/07/2015 Colonoscopy EGD TRANSORAL BIOPSY SINGLE/MULTIPLE 07/06/2009 ESOPHAGOGASTRODUODENOSCOPY TRANSORAL DIAGNOSTIC 04/25/2006 EGD ESOPHAGOGASTRODUODENOSCOPY TRANSORAL DIAGNOSTIC 09/20/2002 EGD ESOPHAGOGASTRODUODENOSCOPY TRANSORAL DIAGNOSTIC 06/07/2015 EGD LAPAROSCOPY SURG CHOLECYSTECTOMY 06/16/2000 Cholecystectomy, lap PAST SURGICAL HISTORY OF 06/16/1989 L-5, S-1 back surgery PAST SURGICAL HISTORY OF carpal tunnel PAST SURGICAL HISTORY OF Left 2019 IT Band Release SIGMOIDOSCOPY FLX DX W/COLLJ SPEC BR/WA IF PFRMD 07/06/2009 STEREOTACTIC CORE BIOPSY 04/11/2006 RIGHT BREAST BIOPSY TOTAL ABDOMINAL HYSTERECT W/WO RMVL TUBE OVARY 06/16/1994 Hysterectomy, JUANY FAMILY HISTORY Problem Relation Age of Onset Cancer Mother breast Diabetes Mother Heart Mother Heart Father Colon Cancer Father dx in his early forties Social History Tobacco Use Smoking status: Never Smokeless tobacco: Never Substance Use Topics Alcohol use: No Drug use: No Work Status: disabled Allergies: Acetazolamide Other: See Comments Pioglitazone Other: See Comments Amitriptyline Other: See Comments Biaxin [Clarithromy* Indocin [Indomethac* Penicillins Canagliflozin Other: See Comments Current Outpatient Medications Medication Sig meloxicam (MOBIC) 7.5 mg tablet Take 1 tablet by mouth every afternoon. [START ON 02/20/2023] oxyCODONE-acetaminophen (PERCOCET) 5-325 mg tablet Take 1 tablet by mouth twicedaily as needed for pain for up to 30 days. Do not start before February 20, 2023. morphine SR (MS CONTIN) 15 mg 12 hr tablet Take 1 tablet by mouth every 12 hours as needed for painfor up to 30 days. For Pain Do not start before January 21, 2023. gabapentin (NEURONTIN) 600 mg tablet Take 1 tablet by mouth three times daily for 60 days. Do not start before February 07, 2023. ibuprofen (MOTRIN) 600 mg tablet TAKE 1 TABLET BY MOUTH THREE TIMES DAILY for 5 days TRULICITY 1.5 mg/0.5 mL pen injector inject 1 (ONE) pen (1.5mg) SUBCUTANEOUSLY EVERY WEEK glimepiride (AMARYL) 4 mg tablet Take 4 mg by mouth every morning. BIPAP esomeprazole (NEXIUM) 40 mg capsule Take 40 mg by mouth. fentaNYL (DURAGESIC) 25 mcg/hr Apply 1 Patch as directed every 72 hours for 30 days. As directed. naloxone 4 mg/actuation nasal spray (NARCAN) Use 1 spray in one nostril as needed for overdose. Mayrepeat every 2 to 3 min in alternating nostrils until medical assistance is available No current facility-administered medications for this visit. PHYSICAL EXAMINATION: Vitals: BP 160/101 Pulse 88 Resp 19 Ht 5' 8.4 (1.74m) Wt 208 lb (94.3kg) SpO2 96% BMI 31.27 kg/(m^2). GENERAL: Healthy, alert, no distress, cooperative SKIN: Skin color, texture, turgor normal. No rashes or lesions. HEENT: PERRL, EOMI, and normal dentition CARDIAC: Normal S1 and S2; no rubs, murmurs, or gallops LUNGS: Lungs clear to auscultation. Good diaphragmatic excursion. Musculoskeletal:+5/5 motor strength on the right leg and +4/5 motor strength on the left leg. Negative SLR signs bilaterally. +2/4 DTR at L4 reflex. Diminished S1 reflexes bilaterally. Sensory is intact to light touch in all dermatomes. Diminished sensation in the left leg at all dermatomes compared to the right. Negative foot drop noted bilaterally. Patient has SLR of about 50 degrees on the left and 80 degrees on the right. Negative Tony's test on the right and positive Tony's test on the left. Lumbar flexion is < 90 degrees and lumbar extension is < 10 degrees. Tenderness at L4-5 midline paraspinal muscle, L>R. Toe and heel walking are normal. Slightly off balance. There is no peripheral edema noted. ASSESSMENT: High risk medication use Intentional overdose of drug in tablet form ([facility]) Opioid dependence, continuous ([facility]) Encounter for long-term (current) use of medications Lumbar radiculopathy Cervicalgia Postlaminectomy syndrome, lumbar region (primary encounter diagnosis) Encounter for long-term (current) use of high-risk medication Lumbar post-laminectomy syndrome Neck pain Other chronic pain Chronic pain syndrome Myofascial pain syndrome Radiculopathy of lumbar region Rheumatoid arthritis involving multiple sites, unspecified whether rheumatoid factor present (hcc) Patient is stable. Chronic pain is persistent. Medications are helping Roseanna Jones to have an improved quality of life. Patient compliance with Opioid Contract: patient is compliant PDMP website checked and validated. OARRS report reviewed on February 11, 2023 by Genet Kimball and is consistent with the patients medical history and medication intake. PLAN: The patient understands the goal of our treatment is a reduction in pain and/or an improved level of functioning with activities of daily living. If at any time the patient does not feel the medications are helping them to achieve these goals, the medications may be discontinued. The patient reports a reduction in pain and/or an improved level of functioning with activities of daily living, denies any significant adverse effects, is compliant with the pain management agreement and there are no signs of medication misuse, abuse or diversion; therefore, the medications will be continued. The documentation for this encounter was entered by Genet Kimball, medical assembler for Dr. Joyce Marley on February 11, 2023. I, Dr. Joyce Marley, personally performed the services described in this documentation. All medical record entries made by the scribe were at my direction and in my presence. I have reviewed the chart and discharge instructions and agree that the record reflects my personal performance and is accurate and complete. Electronically Signed: Dr. Marley. February 11, 2023. documented [facility]-29-[facility]23 Instructions* Patient Instructions* Joyce Marley DO - 02/11/2023 10:59 AM EDT Discontinue MS Contin for 24 hours before starting Fentanyl patches Continue Percocet. Start to wean off as patch is started. Resume Diamox prn for arachnoiditis Continue Gabapentin D/C Zanaflex Continue to follow-up with Dr. Mcbride(At [facility]-Lup[facility]) - every 3-6 months. Has not followed up for the last 2 years. Will repeat lab work. Continue to follow-up to PCP (Dr. Randhawa) about your gastroparesis. F/U with to consider a gastric stimulator implant. Continue to follow-up with Dr. Butler (neurologist) Order MRI of lumbar spine with and without contrast Obtain medical records from [facility] Start Fentanyl 25 mcg patches - start applying patches 24 hours after stopping the MS Contin Order lab work CRP, sed rate, RA factor Follow-up in 1 month with [employer] documented in this encounterReg[facility] Center07-28-2023 Miscellaneous Notes* Telephone Encounter - Xenia Montano MA - 01/10/2023 11:07 AM EDT Items addressed in this encounter: Other I scheduled patient a 1 month follow up virtual visit with Katty. Able to close encounter. Xenia Montano MA January 10, 2023 11:07 AM 11:07 AM documented in this encounterReg[facility] Center07-27-2023 Miscellaneous Notes* Telephone Encounter - Xenia Montano MA - 01/09/2023 3:15 PM EDT Items addressed in this encounter: Virtual Visit Pre Check In Virtual visit precharting done Able to close encounter. Xenia Montano MA January 09, 2023 3:15 PM 3:15 PM documented in this encounterRegional [facility] Center06-29-2023 Instructions* Patient Instructions* Katty Steiner APRN.CNP - 12/12/2022 1:30 PM EDT Continue MS Contin and percocet(mmeq=45) Continue Diamox prn Continue Zanaflex Rx'D by PCP Follow-up with Dr. Mcbride(At [facility]) Continue Gabapentin Encouraged to talk to PCP (Dr. Randhawa) about your gastroparesis F/U with Dr. Harper (IT bands) Follow-up with Dr. Butler (neurologist) Follow-up in 1 month Katty Steiner APRN.CNP documented in this encounterRegional [facility] Center06-29-2023 History of Present illness Narrative* Katty Steiner APRN.CNP - 12/12/2022 1:26 PM EDT This video visit was performed via naaya video visit. Patient consented to receive health care services via virtual visit for this encounter Provider Location: [place] Patient Location: Patient Home or Place of Residence I have communicated my name and active licensure. The patient's identity and physical location wereverified at the time of this visit. Either the patient or their legal strategic partnership representative has been informed of the risks and benefits of -- and alternatives to -- treatment through a remote evaluation andconsents to proceed with the evaluation remotely. Chief Complaint: Pain History of Present Illness: Roseanna Jones is a 62 year old year old female being seen at [facility] for a evaluation and/or management of her chronic pain. Roseanna Jones last had an office visit on 07/25/[address] Marley, virtual visit on 10/24/22 by me. Sincethe last visit her pain level has remained stable. VAS: 7/10 Pain Location: back, neck, leg, arms Radiation: down left leg Character: aching, burning Numbness/tingling: toes left foot and hand Burning: left foot Weakness: denies Falls: denies Worsening factors: walking, standing, bending, activity Relieving factors: heat, ice and rest Patient denies any bowel or bladder dysfunction. Since the last office visit the patients medical history has not changed. The patient denies any new diagnoses, hospital visits or ER visits. The patient is currently prescribed morphine, percocet, and gabapentin from our office. The last dose of Percocet/MS and Gabapentin was taken today at 8:30 a.m. The medications are effective. The patient denies nausea, vomiting, constipation,rashes, drowsiness,weight gain, weight loss,dizziness,andfatigue. The OARRS report has been reviewed and is consistent with the patients medical history and medication intake. Last UDS: UDS CONSISTENT(+)ETOH Hx. DM Summary Report Date Value Ref Range Status 10/31/2022 FINAL Final Comment: Alcohol, Ethyl, Ur, QT Opiate Class, MS, Ur RFX Oxycodone Class, MS, Ur RFX Gabapentin, MS, Ur RFX Acetaminophen, MS, Ur RFX ToxAssure Flex 23, Ur Test Result Flag Units Drug Present Alcohol, Ethyl 0.170 g/dL Sources of ethyl alcohol include alcoholic beverages or as a fermentation product of glucose; glucose is present in this specimen. Interpret result with caution, as the presence of ethyl alcohol is likely due, at least in part, to fermentation of glucose. Morphine 8186 ng/mg creat Normorphine 118 ng/mg creat Potential sources of large amounts of morphine in the absence of codeine include administration of morphine or use of heroin. Normorphine is an expected metabolite of morphine. Oxycodone 849 ng/mg creat Oxymorphone 732 ng/mg creat Noroxycodone 479 ng/mg creat Noroxymorphone 101 ng/mg creat Sources of oxycodone are scheduled prescription medications. Oxymorphone, noroxycodone, and noroxymorphone are expected metabolites of oxycodone. Oxymorphone is also available as a scheduled prescription medication. Gabapentin PRESENT Acetaminophen PRESENT Test Result Flag Units Ref Range Creatinine 73 mg/dL >=20 Declared Medications: Medication list was not provided. For clinical consultation, please call . Summary Report (Summary) Date Value Ref Range Status 03/28/2022 FINAL Final Comment: TOXASSURE COMP DRUG ANALYSIS,UR Test Result Flag Units Drug Present Morphine 3648 ng/mg creat Normorphine 79 ng/mg creat Potential sources of large amounts of morphine in the absence of codeine include administration of morphine or use of heroin. Normorphine is an expected metabolite of morphine. Oxycodone 4959 ng/mg creat Oxymorphone 3010 ng/mg creat Noroxycodone 2027 ng/mg creat Noroxymorphone 508 ng/mg creat Sources of oxycodone are scheduled prescription medications. Oxymorphone, noroxycodone, and noroxymorphone are expected metabolites of oxycodone. Oxymorphone is also available as a scheduled prescription medication. Gabapentin PRESENT Citalopram PRESENT Desmethylcitalopram PRESENT Desmethylcitalopram is an expected metabolite of citalopram or the enantiomeric form, escitalopram. Mirtazapine PRESENT Acetaminophen PRESENT Ibuprofen PRESENT Propranolol PRESENT Test Result Flag Units Ref Range Creatinine 63 mg/dL >=20 Declared Medications: Medication list was not provided. For clinical consultation, please call . The UDS has been reviewed and is consistent with medications prescribed. Summary Report (Summary) Date Value Ref Range Status 03/28/2022 FINAL Final Comment: TOXASSURE COMP DRUG ANALYSIS,UR Test Result Flag Units Drug Present Morphine 3648 ng/mg creat Normorphine 79 ng/mg creat Potential sources of large amounts of morphine in the absence of codeine include administration of morphine or use of heroin. Normorphine is an expected metabolite of morphine. Oxycodone 4959 ng/mg creat Oxymorphone 3010 ng/mg creat Noroxycodone 2027 ng/mg creat Noroxymorphone 508 ng/mg creat Sources of oxycodone are scheduled prescription medications. Oxymorphone, noroxycodone, and noroxymorphone are expected metabolites of oxycodone. Oxymorphone is also available as a scheduled prescription medication. Gabapentin PRESENT Citalopram PRESENT Desmethylcitalopram PRESENT Desmethylcitalopram is an expected metabolite of citalopram or the enantiomeric form, escitalopram. Mirtazapine PRESENT Acetaminophen PRESENT Ibuprofen PRESENT Propranolol PRESENT Test Result Flag Units Ref Range Creatinine 63 mg/dL >=20 Declared Medications: Medication list was not provided. For clinical consultation, please call . REVIEW OF SYSTEMS: GENERAL: No weight loss or fevers RESPIRATORY: Negative for cough CARDIOVASCULAR: Negative for chest pain GI: No nausea, vomiting, or diarrhea. PAST MEDICAL HISTORY Diagnosis Date Abdominal pain, epigastric Abdominal pain, epigastric Abdominal pain, generalized Abdominal pain, right upper quadrant Acute gastritis without mention of hemorrhage Arachnoiditis Benign neoplasm of colon Benign neoplasm of duodenum, jejunum, and ileum Degeneration of intervertebral disc, site unspecified Depressive disorder, not elsewhere classified Diabetes (HCC) Diarrhea Diverticulitis of colon (without mention of hemorrhage)(562.11) Esophageal reflux Essential hypertension, malignant Headache(784.0) Hemorrhage of gastrointestinal tract, unspecified Internal hemorrhoids without mention of complication Nonorganic sleep disorder, unspecified Obstructive sleep apnea (adult) (pediatric) Other and unspecified hyperlipidemia Paralysis agitans (HCC) Parkinson's Disease Parkinson disease (HCC) PMH - PAST MEDICAL HISTORY OF glucose intolerant PAST SURGICAL HISTORY Procedure Laterality Date ARTHROSCOPY KNEE DIAGNOSTIC W/WO SYNOVIAL BX SPX left knee-reset patella COLONOSCOPY FLX DX W/COLLJ SPEC WHEN PFRMD 04/25/2006 Colonoscopy COLONOSCOPY FLX DX W/COLLJ SPEC WHEN PFRMD 09/20/2002 Colonoscopy COLONOSCOPY FLX DX W/COLLJ SPEC WHEN PFRMD 06/07/2015 Colonoscopy EGD TRANSORAL BIOPSY SINGLE/MULTIPLE 07/06/2009 ESOPHAGOGASTRODUODENOSCOPY TRANSORAL DIAGNOSTIC 04/25/2006 EGD ESOPHAGOGASTRODUODENOSCOPY TRANSORAL DIAGNOSTIC 09/20/2002 EGD ESOPHAGOGASTRODUODENOSCOPY TRANSORAL DIAGNOSTIC 06/07/2015 EGD LAPAROSCOPY SURG CHOLECYSTECTOMY 06/16/2000 Cholecystectomy, lap PAST SURGICAL HISTORY OF 06/16/1989 L-5, S-1 back surgery PAST SURGICAL HISTORY OF carpal tunnel PAST SURGICAL HISTORY OF Left 2019 IT Band Release SIGMOIDOSCOPY FLX DX W/COLLJ SPEC BR/WA IF PFRMD 07/06/2009 STEREOTACTIC CORE BIOPSY 04/11/2006 RIGHT BREAST BIOPSY TOTAL ABDOMINAL HYSTERECT W/WO RMVL TUBE OVARY 06/16/1994 Hysterectomy, JUANY FAMILY HISTORY Problem Relation Age of Onset Cancer Mother breast Diabetes Mother Heart Mother Heart Father Colon Cancer Father dx in his early forties Social History Tobacco Use Smoking status: Never Smokeless tobacco: Never Substance Use Topics Alcohol use: No Drug use: No Allergies: Biaxin [Clarithromy* Indocin [Indomethac* Penicillins Current Outpatient Medications Medication Sig morphine SR (MS CONTIN) 15 mg 12 hr tablet Take 1 tablet by mouth every 12 hours as needed for painfor up to 30 days. For Pain Do not start before November 22, 2022. oxyCODONE-acetaminophen (PERCOCET) 5-325 mg tablet Take 1 tablet by mouth twice daily as needed forpain for up to 30 days. Do not start before November 22, 2022. gabapentin (NEURONTIN) 600 mg tablet Take 1 tablet by mouth three times daily for 60 days. Do not start before November 21, 2022. clindamycin (CLEOCIN) 150 mg capsule Take 150 mg by mouth three times daily. ibuprofen (MOTRIN) 600 mg tablet TAKE 1 TABLET BY MOUTH THREE TIMES DAILY for 5 days escitalopram oxalate (LEXAPRO) 10 mg tablet Take 10 mg by mouth. carbidopa-levodopa (SINEMET 25-100) 25-100 mg per tablet Take 1 tablet by mouth three times daily. dextromethorphan Hbr/quinidine (DEXTROMETHORPHAN-QUINIDINE ORAL) Nuedexta 20/10 Active 1 TAB DAILY March 18, 2013 12:30pm TRULICITY 1.5 mg/0.5 mL pen injector inject 1 (ONE) pen (1.5mg) SUBCUTANEOUSLY EVERY WEEK escitalopram oxalate (LEXAPRO) 10 mg tablet Escitalopram Oxalate Active 10 MG DAILY February 2:15am escitalopram oxalate (LEXAPRO) 10 mg tablet Take 10 mg by mouth once daily. glimepiride (AMARYL) 4 mg tablet Take 4 mg by mouth every morning. insulin lispro (HUMALOG KWIKPEN) 100 unit/mL INJECT 20 units under the skin before meals mirtazapine (REMERON) 30 mg tablet Take by mouth. naloxone 4 mg/actuation nasal spray (NARCAN) Narcan 4 mg/actuation spray,non-aerosol omeprazole (PRILOSEC) 40 mg capsule Take by mouth. ondansetron orally disintegrating (ZOFRAN ODT) 4 mg disintegrating tablet 4 mg. tiZANidine (ZANAFLEX) 4 mg tablet Take 4 mg by mouth twice daily. qwcxzbydn-sdnukhum-hjoyxytypp (STALEVO 100) 25-100-200 mg per tablet Take 1 tablet by mouth twice daily. metFORMIN (GLUCOPHAGE) 1,000 mg tablet Take 1,000 mg by mouth twice daily. LEVEMIR FLEXTOUCH U-100 INSULIN 100 unit/mL (3 mL) injection pen INJECT TEN UNITS AT BEDTIME propranolol (INDERAL) 20 mg tablet Take 20 mg by mouth three times daily. diclofenac (VOLTAREN) 1 % topical gel Apply 4 g to affected area four times daily. BIPAP esomeprazole (NEXIUM) 40 mg capsule Take 40 mg by mouth. CARBIDOPA/LEVODOPA/ENTACAPONE (STALEVO 150 ORAL) Take by mouth. metFORMIN ER (GLUCOPHAGE XR) 500 mg 24 hr tablet Take 1 tablet by mouth three times daily. rasagiline (AZILECT) 1 mg tab Take 1 tablet by mouth once daily. clonazePAM (KLONOPIN) 0.5 mg tablet Take 2 tablets by mouth at bedtime as needed. No current facility-administered medications for this visit. PHYSICAL EXAMINATION: VIDEO EXAM: (performed via video enabled technology) GENERAL: alert and appropriate, in no distress, well-hydrated, well nourished and happy, smiling, interactive HEAD: normocephalic, no abnormality or lesion noted RESPIRATORY: breathing non-labored ASSESSMENT: Patient is stable. Chronic pain is persistent. Medications are helping Roseanna Jones to have an improved quality of life. Patient compliance with Opioid Contract: patient is compliant Encounter Diagnosis ICD-10-CM 1. High risk medication use Z79.899 2. Opioid dependence, continuous (HCC) F11.20 3. Encounter for long-term (current) use of medications Z79.899 4. Lumbar radiculopathy M54.16 5. Cervicalgia M54.2 6. Postlaminectomy syndrome, lumbar region M96.1 7. Encounter for long-term (current) use of high-risk medication Z79.899 8. Lumbar post-laminectomy syndrome M96.1 9. Neck pain M54.2 10. Other chronic pain G89.29 PLAN: The patient understands the goal of our treatment is a reduction in pain and/or an improved level of functioning with activities of daily living. If at any time the patient does not feel the medications are helping them to achieve these goals, the medications may be discontinued. The patient reports a reduction in pain and/or an improved level of functioning with activities of daily living, denies any significant adverse effects, is compliant with the pain management agreement and there are no signs of medication misuse, abuse or diversion; therefore, the medications will be continued. Continue MS Contin and percocet(mmeq=45) Continue Diamox prn Continue Zanaflex Rx'D by PCP Follow-up with Dr. Mcbride(At [facility]) Continue Gabapentin Encouraged to talk to PCP (Dr. Randhawa) about your gastroparesis F/U with Dr. Harper (IT bands) Follow-up with Dr. Butler (neurologist) Follow-up in 1 month Katty Steiner APRN.CNP documented in this encounterRegional Medical Center05-11-2023 Instructions* Patient Instructions* Katty Steiner APRN.CNP - 10/24/2022 1:53 PM EDT Continue MS Contin and percocet(mmeq=45) Continue Diamox prn Continue Zanaflex Rx'D by PCP Follow-up with Dr. Mcbride(At [facility]) Continue Gabapentin Encouraged to talk to PCP (Dr. Randhawa) about your gastroparesis F/U with Dr. Harper (IT bands) Follow-up with Dr. Butler (neurologist) Follow-up in 1 month Katty Steiner APRN.CNP documented in this encounterRegional Medical Center05-11-2023 History of Present illness Narrative* Katty Steiner APRN.CNP - 10/24/2022 1:43 PM EDT This video visit was performed via naaya video visit. Patient consented to receive health care services via virtual visit for this encounter Provider Location: Non[place] Patient Location: Patient Home or Place of Residence I have communicated my name and active licensure. The patient's identity and physical location wereverified at the time of this visit. Either the patient or their legal strategic partnership representative has been informed of the risks and benefits of -- and alternatives to -- treatment through a remote evaluation andconsents to proceed with the evaluation remotely. Chief Complaint: Pain History of Present Illness: Roseanna Jones is a 62 year old year old female being seen at [facility] for a evaluation and/or management of her chronic pain. Roseanna Jones last had an office visit on 07/25/[address] Marley, virtual visit on 09/26/22 by me. Sincethe last visit her pain level has remained stable. VAS: 7/10 Pain Location: back, neck, leg, arms Radiation: down left leg Character: aching, burning Numbness/tingling: toes left foot and hand Burning: left foot Weakness: denies Falls: denies Worsening factors: walking, standing, bending, activity Relieving factors: heat, ice and rest Patient denies any bowel or bladder dysfunction. Since the last office visit the patients medical history has not changed. The patient denies any new diagnoses, hospital visits or ER visits. The patient is currently prescribed morphine, percocet, and gabapentin from our office. The last dose of Percocet/MS and Gabapentin was taken today at 8:30 a.m. The medications are effective. The patient denies nausea, vomiting, constipation,rashes, drowsiness,weight gain, weight loss,dizziness,andfatigue. The OARRS report has been reviewed and is consistent with the patients medical history and medication intake. Last UDS: The UDS has been reviewed and is consistent with medications prescribed. Summary Report (Summary) Date Value Ref Range Status 03/28/2022 FINAL Final Comment: TOXASSURE COMP DRUG ANALYSIS,UR Test Result Flag Units Drug Present Morphine 3648 ng/mg creat Normorphine 79 ng/mg creat Potential sources of large amounts of morphine in the absence of codeine include administration of morphine or use of heroin. Normorphine is an expected metabolite of morphine. Oxycodone 4959 ng/mg creat Oxymorphone 3010 ng/mg creat Noroxycodone 2027 ng/mg creat Noroxymorphone 508 ng/mg creat Sources of oxycodone are scheduled prescription medications. Oxymorphone, noroxycodone, and noroxymorphone are expected metabolites of oxycodone. Oxymorphone is also available as a scheduled prescription medication. Gabapentin PRESENT Citalopram PRESENT Desmethylcitalopram PRESENT Desmethylcitalopram is an expected metabolite of citalopram or the enantiomeric form, escitalopram. Mirtazapine PRESENT Acetaminophen PRESENT Ibuprofen PRESENT Propranolol PRESENT Test Result Flag Units Ref Range Creatinine 63 mg/dL >=20 Declared Medications: Medication list was not provided. For clinical consultation, please call . REVIEW OF SYSTEMS: GENERAL: No weight loss or fevers RESPIRATORY: Negative for cough CARDIOVASCULAR: Negative for chest pain GI: No nausea, vomiting, or diarrhea. PAST MEDICAL HISTORY Diagnosis Date Abdominal pain, epigastric Abdominal pain, epigastric Abdominal pain, generalized Abdominal pain, right upper quadrant Acute gastritis without mention of hemorrhage Arachnoiditis Benign neoplasm of colon Benign neoplasm of duodenum, jejunum, and ileum Degeneration of intervertebral disc, site unspecified Depressive disorder, not elsewhere classified Diabetes (HCC) Diarrhea Diverticulitis of colon (without mention of hemorrhage)(562.11) Esophageal reflux Essential hypertension, malignant Headache(784.0) Hemorrhage of gastrointestinal tract, unspecified Internal hemorrhoids without mention of complication Nonorganic sleep disorder, unspecified Obstructive sleep apnea (adult) (pediatric) Other and unspecified hyperlipidemia Paralysis agitans (HCC) Parkinson's Disease Parkinson disease (HCC) PMH - PAST MEDICAL HISTORY OF glucose intolerant PAST SURGICAL HISTORY Procedure Laterality Date ARTHROSCOPY KNEE DIAGNOSTIC W/WO SYNOVIAL BX SPX left knee-reset patella COLONOSCOPY FLX DX W/COLLJ SPEC WHEN PFRMD 04/25/2006 Colonoscopy COLONOSCOPY FLX DX W/COLLJ SPEC WHEN PFRMD 09/20/2002 Colonoscopy COLONOSCOPY FLX DX W/COLLJ SPEC WHEN PFRMD 06/07/2015 Colonoscopy EGD TRANSORAL BIOPSY SINGLE/MULTIPLE 07/06/2009 ESOPHAGOGASTRODUODENOSCOPY TRANSORAL DIAGNOSTIC 04/25/2006 EGD ESOPHAGOGASTRODUODENOSCOPY TRANSORAL DIAGNOSTIC 09/20/2002 EGD ESOPHAGOGASTRODUODENOSCOPY TRANSORAL DIAGNOSTIC 06/07/2015 EGD LAPAROSCOPY SURG CHOLECYSTECTOMY 06/16/2000 Cholecystectomy, lap PAST SURGICAL HISTORY OF 06/16/1989 L-5, S-1 back surgery PAST SURGICAL HISTORY OF carpal tunnel PAST SURGICAL HISTORY OF Left 2019 IT Band Release SIGMOIDOSCOPY FLX DX W/COLLJ SPEC BR/WA IF PFRMD 07/06/2009 STEREOTACTIC CORE BIOPSY 04/11/2006 RIGHT BREAST BIOPSY TOTAL ABDOMINAL HYSTERECT W/WO RMVL TUBE OVARY 06/16/1994 Hysterectomy, JUANY FAMILY HISTORY Problem Relation Age of Onset Cancer Mother breast Diabetes Mother Heart Mother Heart Father Colon Cancer Father dx in his early forties Social History Tobacco Use Smoking status: Never Smokeless tobacco: Never Substance Use Topics Alcohol use: No Drug use: No Allergies: Biaxin [Clarithromy* Indocin [Indomethac* Penicillins Current Outpatient Medications Medication Sig morphine SR (MS CONTIN) 15 mg 12 hr tablet Take 1 tablet by mouth every 12 hours as needed for painfor up to 30 days. For Pain Do not start before October 23, 2022. oxyCODONE-acetaminophen (PERCOCET) 5-325 mg tablet Take 1 tablet by mouth twice daily as needed forpain for up to 30 days. Do not start before October 23, 2022. gabapentin (NEURONTIN) 600 mg tablet Take 1 tablet by mouth three times daily for 60 days. Do not start before October 03, 2022. clindamycin (CLEOCIN) 150 mg capsule Take 150 mg by mouth three times daily. ibuprofen (MOTRIN) 600 mg tablet TAKE 1 TABLET BY MOUTH THREE TIMES DAILY for 5 days escitalopram oxalate (LEXAPRO) 10 mg tablet Take 10 mg by mouth. carbidopa-levodopa (SINEMET 25-100) 25-100 mg per tablet Take 1 tablet by mouth three times daily. dextromethorphan Hbr/quinidine (DEXTROMETHORPHAN-QUINIDINE ORAL) Nuedexta 20/10 Active 1 TAB DAILY March 18, 2013 12:30pm TRULICITY 1.5 mg/0.5 mL pen injector inject 1 (ONE) pen (1.5mg) SUBCUTANEOUSLY EVERY WEEK escitalopram oxalate (LEXAPRO) 10 mg tablet Escitalopram Oxalate Active 10 MG DAILY February 2:15am escitalopram oxalate (LEXAPRO) 10 mg tablet Take 10 mg by mouth once daily. glimepiride (AMARYL) 4 mg tablet Take 4 mg by mouth every morning. insulin lispro (HUMALOG KWIKPEN) 100 unit/mL INJECT 20 units under the skin before meals mirtazapine (REMERON) 30 mg tablet Take by mouth. naloxone 4 mg/actuation nasal spray (NARCAN) Narcan 4 mg/actuation spray,non-aerosol omeprazole (PRILOSEC) 40 mg capsule Take by mouth. ondansetron orally disintegrating (ZOFRAN ODT) 4 mg disintegrating tablet 4 mg. tiZANidine (ZANAFLEX) 4 mg tablet Take 4 mg by mouth twice daily. inppmmaql-phuotwag-hysuiguuof (STALEVO 100) 25-100-200 mg per tablet Take 1 tablet by mouth twice daily. metFORMIN (GLUCOPHAGE) 1,000 mg tablet Take 1,000 mg by mouth twice daily. LEVEMIR FLEXTOUCH U-100 INSULIN 100 unit/mL (3 mL) injection pen INJECT TEN UNITS AT BEDTIME propranolol (INDERAL) 20 mg tablet Take 20 mg by mouth three times daily. diclofenac (VOLTAREN) 1 % topical gel Apply 4 g to affected area four times daily. BIPAP esomeprazole (NEXIUM) 40 mg capsule Take 40 mg by mouth. CARBIDOPA/LEVODOPA/ENTACAPONE (STALEVO 150 ORAL) Take by mouth. metFORMIN ER (GLUCOPHAGE XR) 500 mg 24 hr tablet Take 1 tablet by mouth three times daily. rasagiline (AZILECT) 1 mg tab Take 1 tablet by mouth once daily. clonazePAM (KLONOPIN) 0.5 mg tablet Take 2 tablets by mouth at bedtime as needed. No current facility-administered medications for this visit. PHYSICAL EXAMINATION: VIDEO EXAM: (performed via video enabled technology) GENERAL: alert and appropriate, in no distress, well-hydrated, well nourished and happy, smiling, interactive HEAD: normocephalic, no abnormality or lesion noted RESPIRATORY: breathing non-labored ASSESSMENT: Patient is stable. Chronic pain is persistent. Medications are helping Roseanna Jones to have an improved quality of life. Patient compliance with Opioid Contract: patient is compliant Encounter Diagnosis ICD-10-CM 1. Encounter for long-term (current) use of medications Z79.899 2. Opioid dependence, continuous (HCC) F11.20 3. Lumbar radiculopathy M54.16 4. Lumbar post-laminectomy syndrome M96.1 5. Encounter for long-term (current) use of high-risk medication Z79.899 6. Postlaminectomy syndrome, lumbar region M96.1 7. Cervicalgia M54.2 8. Neck pain M54.2 9. Other chronic pain G89.29 PLAN: The patient understands the goal of our treatment is a reduction in pain and/or an improved level of functioning with activities of daily living. If at any time the patient does not feel the medications are helping them to achieve these goals, the medications may be discontinued. The patient reports a reduction in pain and/or an improved level of functioning with activities of daily living, denies any significant adverse effects, is compliant with the pain management agreement and there are no signs of medication misuse, abuse or diversion; therefore, the medications will be continued. Continue MS Contin and percocet(mmeq=45) Continue Diamox prn Continue Zanaflex Rx'D by PCP Follow-up with Dr. Mcbride(At [facility]) Continue Gabapentin Encouraged to talk to PCP (Dr. Randhawa) about your gastroparesis F/U with Dr. Harper (IT bands) Follow-up with Dr. Butler (neurologist) Follow-up in 1 month Katty Steiner APRN.CNP [facility] Instructions* Patient Instructions* Katty Steiner APRN.CNP - 08/29/2022 1:52 PM EDT Continue MS Contin and percocet(mmeq=45) Continue Diamox prn Continue Zanaflex Rx'D by PCP Follow-up with Dr. Mcbride(At [facility]-Lupus/[facility]) Continue Gabapentin. Encouraged to talk to PCP (Dr. Randhawa) about your gastroparesis F/U with Dr. Harper (IT bands) Follow-up with Dr. Butler (neurologist) Follow-up in 1 month Katty Steiner APRN.CNP [facility] History of Present illness Narrative* Katty Steiner APRN.CNP - 08/29/2022 1:39 PM EDT This video visit was performed via naaya video visit. Patient consented to receive health care services via virtual visit for this encounter Provider Location: Non-[place] Patient Location: Patient Home or Place of Residence I have communicated my name and active licensure. The patient's identity and physical location wereverified at the time of this visit. Either the patient or their legal strategic partnership representative has been informed of the risks and benefits of -- and alternatives to -- treatment through a remote evaluation andconsents to proceed with the evaluation remotely. Chief Complaint: Pain History of Present Illness: Roseanna Jones is a 62 year old year old female being seen at [facility] for a evaluation and/or management of her chronic pain. Roseanna Jones last had an office visit on 07/25/[address] Marley, virtual visit on 08/01/22 by me. Sincethe last visit her pain level has remained stable. VAS: 7/10 Pain Location: back, neck, leg, arms Radiation: down left leg Character: aching, burning Numbness/tingling: toes left foot and hand Burning: left foot Weakness: denies Falls: denies Worsening factors: walking, standing, bending, activity Relieving factors: heat, ice and rest Patient denies any bowel or bladder dysfunction. Since the last office visit the patients medical history has not changed. The patient denies any new diagnoses, hospital visits or ER visits. The patient is currently prescribed morphine, percocet, and gabapentin from our office. The last dose of Percocet/MS and Gabapentin was taken today at 8:30 a.m. The medications are effective. The patient denies nausea, vomiting, constipation,rashes, drowsiness,weight gain, weight loss,dizziness,andfatigue. The OARRS report has been reviewed and is consistent with the patients medical history and medication intake. Last UDS: The UDS has been reviewed and is consistent with medications prescribed. Summary Report (Summary) Date Value Ref Range Status 03/28/2022 FINAL Final Comment: TOXASSURE COMP DRUG ANALYSIS,UR Test Result Flag Units Drug Present Morphine 3648 ng/mg creat Normorphine 79 ng/mg creat Potential sources of large amounts of morphine in the absence of codeine include administration of morphine or use of heroin. Normorphine is an expected metabolite of morphine. Oxycodone 4959 ng/mg creat Oxymorphone 3010 ng/mg creat Noroxycodone 2027 ng/mg creat Noroxymorphone 508 ng/mg creat Sources of oxycodone are scheduled prescription medications. Oxymorphone, noroxycodone, and noroxymorphone are expected metabolites of oxycodone. Oxymorphone is also available as a scheduled prescription medication. Gabapentin PRESENT Citalopram PRESENT Desmethylcitalopram PRESENT Desmethylcitalopram is an expected metabolite of citalopram or the enantiomeric form, escitalopram. Mirtazapine PRESENT Acetaminophen PRESENT Ibuprofen PRESENT Propranolol PRESENT Test Result Flag Units Ref Range Creatinine 63 mg/dL >=20 Declared Medications: Medication list was not provided. For clinical consultation, please call . REVIEW OF SYSTEMS: GENERAL: No weight loss or fevers RESPIRATORY: Negative for cough CARDIOVASCULAR: Negative for chest pain GI: No nausea, vomiting, or diarrhea. PAST MEDICAL HISTORY Diagnosis Date Abdominal pain, epigastric Abdominal pain, epigastric Abdominal pain, generalized Abdominal pain, right upper quadrant Acute gastritis without mention of hemorrhage Arachnoiditis Benign neoplasm of colon Benign neoplasm of duodenum, jejunum, and ileum Degeneration of intervertebral disc, site unspecified Depressive disorder, not elsewhere classified Diabetes (HCC) Diarrhea Diverticulitis of colon (without mention of hemorrhage)(562.11) Esophageal reflux Essential hypertension, malignant Headache(784.0) Hemorrhage of gastrointestinal tract, unspecified Internal hemorrhoids without mention of complication Nonorganic sleep disorder, unspecified Obstructive sleep apnea (adult) (pediatric) Other and unspecified hyperlipidemia Paralysis agitans (HCC) Parkinson's Disease Parkinson disease (HCC) PMH - PAST MEDICAL HISTORY OF glucose intolerant PAST SURGICAL HISTORY Procedure Laterality Date ARTHROSCOPY KNEE DIAGNOSTIC W/WO SYNOVIAL BX SPX left knee-reset patella COLONOSCOPY FLX DX W/COLLJ SPEC WHEN PFRMD 04/25/2006 Colonoscopy COLONOSCOPY FLX DX W/COLLJ SPEC WHEN PFRMD 09/20/2002 Colonoscopy COLONOSCOPY FLX DX W/COLLJ SPEC WHEN PFRMD 06/07/2015 Colonoscopy EGD TRANSORAL BIOPSY SINGLE/MULTIPLE 07/06/2009 ESOPHAGOGASTRODUODENOSCOPY TRANSORAL DIAGNOSTIC 04/25/2006 EGD ESOPHAGOGASTRODUODENOSCOPY TRANSORAL DIAGNOSTIC 09/20/2002 EGD ESOPHAGOGASTRODUODENOSCOPY TRANSORAL DIAGNOSTIC 06/07/2015 EGD LAPAROSCOPY SURG CHOLECYSTECTOMY 06/16/2000 Cholecystectomy, lap PAST SURGICAL HISTORY OF 06/16/1989 L-5, S-1 back surgery PAST SURGICAL HISTORY OF carpal tunnel PAST SURGICAL HISTORY OF Left 2019 IT Band Release SIGMOIDOSCOPY FLX DX W/COLLJ SPEC BR/WA IF PFRMD 07/06/2009 STEREOTACTIC CORE BIOPSY 04/11/2006 RIGHT BREAST BIOPSY TOTAL ABDOMINAL HYSTERECT W/WO RMVL TUBE OVARY 06/16/1994 Hysterectomy, JUANY FAMILY HISTORY Problem Relation Age of Onset Cancer Mother breast Diabetes Mother Heart Mother Heart Father Colon Cancer Father dx in his early forties Social History Tobacco Use Smoking status: Never Smokeless tobacco: Never Substance Use Topics Alcohol use: No Drug use: No Allergies: Biaxin [Clarithromy* Indocin [Indomethac* Penicillins Current Outpatient Medications Medication Sig morphine SR (MS CONTIN, ORAMORPH SR) 15 mg 12 hr tablet Take 1 tablet by mouth every 12 hours as needed for pain for up to 30 days. For Pain Do not start before August 24, 2022. oxyCODONE-acetaminophen (PERCOCET) 5-325 mg tablet Take 1 tablet by mouth twice daily as needed forpain for up to 30 days. Do not start before August 24, 2022. gabapentin (NEURONTIN) 600 mg tablet Take 1 tablet by mouth three times daily for 30 days. Do not start before August 04, 2022. clindamycin (CLEOCIN) 150 mg capsule Take 150 mg by mouth three times daily. ibuprofen (MOTRIN) 600 mg tablet TAKE 1 TABLET BY MOUTH THREE TIMES DAILY for 5 days escitalopram oxalate (LEXAPRO) 10 mg tablet Take 10 mg by mouth. carbidopa-levodopa (SINEMET 25-100) 25-100 mg per tablet Take 1 tablet by mouth three times daily. dextromethorphan Hbr/quinidine (DEXTROMETHORPHAN-QUINIDINE ORAL) Nuedexta 20/10 Active 1 TAB DAILY March 18, 2013 12:30pm TRULICITY 1.5 mg/0.5 mL pen injector inject 1 (ONE) pen (1.5mg) SUBCUTANEOUSLY EVERY WEEK escitalopram oxalate (LEXAPRO) 10 mg tablet Escitalopram Oxalate Active 10 MG DAILY February 2:15am escitalopram oxalate (LEXAPRO) 10 mg tablet Take 10 mg by mouth once daily. glimepiride (AMARYL) 4 mg tablet Take 4 mg by mouth every morning. insulin lispro (HUMALOG KWIKPEN) 100 unit/mL INJECT 20 units under the skin before meals mirtazapine (REMERON) 30 mg tablet Take by mouth. naloxone 4 mg/actuation nasal spray (NARCAN) Narcan 4 mg/actuation spray,non-aerosol omeprazole (PRILOSEC) 40 mg capsule Take by mouth. ondansetron orally disintegrating (ZOFRAN ODT) 4 mg disintegrating tablet 4 mg. tiZANidine (ZANAFLEX) 4 mg tablet Take 4 mg by mouth twice daily. ujbgiexys-bveveqny-jomochtiup (STALEVO 100) 25-100-200 mg per tablet Take 1 tablet by mouth twice daily. metFORMIN (GLUCOPHAGE) 1,000 mg tablet Take 1,000 mg by mouth twice daily. LEVEMIR FLEXTOUCH U-100 INSULIN 100 unit/mL (3 mL) injection pen INJECT TEN UNITS AT BEDTIME propranolol (INDERAL) 20 mg tablet Take 20 mg by mouth three times daily. diclofenac (VOLTAREN) 1 % topical gel Apply 4 g to affected area four times daily. BIPAP esomeprazole (NEXIUM) 40 mg capsule Take 40 mg by mouth. CARBIDOPA/LEVODOPA/ENTACAPONE (STALEVO 150 ORAL) Take by mouth. metFORMIN ER (GLUCOPHAGE XR) 500 mg 24 hr tablet Take 1 tablet by mouth three times daily. rasagiline (AZILECT) 1 mg tab Take 1 tablet by mouth once daily. clonazePAM (KLONOPIN) 0.5 mg tablet Take 2 tablets by mouth at bedtime as needed. No current facility-administered medications for this visit. PHYSICAL EXAMINATION: VIDEO EXAM: (performed via video enabled technology) GENERAL: alert and appropriate, in no distress, well-hydrated, well nourished and happy, smiling, interactive HEAD: normocephalic, no abnormality or lesion noted RESPIRATORY: breathing non-labored ASSESSMENT: Patient is stable. Chronic pain is persistent. Medications are helping Roseanna Jones to have an improved quality of life. Patient compliance with Opioid Contract: patient is compliant Encounter Diagnosis ICD-10-CM 1. Encounter for long-term (current) use of medications Z79.899 2. Lumbar radiculopathy M54.16 3. Encounter for long-term (current) use of high-risk medication Z79.899 4. Postlaminectomy syndrome, lumbar region M96.1 5. Cervicalgia M54.2 6. Neck pain M54.2 7. Other chronic pain G89.29 8. Lumbar post-laminectomy syndrome M96.1 PLAN: The patient understands the goal of our treatment is a reduction in pain and/or an improved level of functioning with activities of daily living. If at any time the patient does not feel the medications are helping them to achieve these goals, the medications may be discontinued. The patient reports a reduction in pain and/or an improved level of functioning with activities of daily living, denies any significant adverse effects, is compliant with the pain management agreement and there are no signs of medication misuse, abuse or diversion; therefore, the medications will be continued. Continue MS Contin and percocet(mmeq=45) Continue Diamox prn Continue Zanaflex Rx'D by PCP Follow-up with Dr. Mcbride(At [facility]) Continue Gabapentin. Encouraged to talk to PCP (Dr. Randhawa) about your gastroparesis F/U with Dr. Harper (IT bands) Follow-up with Dr. Butler (neurologist) Follow-up in 1 month Katty Steiner APRN.CNP [facility] Instructions* Patient Instructions* Katty Steiner APRN.CNP - 08/01/2022 2:05 PM EST Continue MS Contin and percocet(mmeq=45) Continue Diamox prn Continue Zanaflex Rx'D by PCP Follow-up with Dr. Mcbride(At [facility]-Lupus/RA) Continue Gabapentin. Encouraged to talk to PCP (Dr. Randhawa) about your gastroparesis F/U with Dr. Harper (IT bands) Follow-up with Dr. Butler (neurologist) Follow-up in 1 month Katty Steiner APRN.CNP [facility] History of Present illness Narrative* Katty Steiner APRN.CNP - 08/01/2022 1:59 PM EST This video visit was performed via naaya video visit. Patient consented to receive health care services via virtual visit for this encounter [facility] Patient Location: Patient Home or Place of Residence Risks, benefits, and limitations of receiving care virtually were discussed with the patient. The patient expressed understanding and is willing to proceed. Chief Complaint: Pain History of Present Illness: Roseanna Jones is a 62 year old year old female being seen at [facility] for a evaluation and/or management of her chronic pain. Roseanna Jones last had an office visit on 07/25/[address] Marley, virtual visit on 07/04/22 by wi. Sincethe last visit her pain level has remained stable. VAS: 7/10 Pain Location: back, neck, leg, arms Radiation: down left leg Character: aching, burning Numbness/tingling: toes left foot and hand Burning: left foot Weakness: denies Falls: denies Worsening factors: walking, standing, bending, activity Relieving factors: heat, ice and rest Patient denies any bowel or bladder dysfunction. Since the last office visit the patients medical history has not changed. The patient denies any new diagnoses, hospital visits or ER visits. The patient is currently prescribed morphine, percocet, and gabapentin from our office. The last dose of Percocet/MS and Gabapentin was taken today at 8:30 a.m. The medications are effective. The patient denies nausea, vomiting, constipation,rashes, drowsiness,weight gain, weight loss,dizziness,andfatigue. The OARRS report has been reviewed and is consistent with the patients medical history and medication intake. Last Urine Drug Screen (UDS): 03/28/22. The UDS has been reviewed and is consistent with medications prescribed. Last UDS: Obtained. No results found for: SUMM Summary Report (Summary) Date Value Ref Range Status 03/28/2022 FINAL Final Comment: TOXASSURE COMP DRUG ANALYSIS,UR Test Result Flag Units Drug Present Morphine 3648 ng/mg creat Normorphine 79 ng/mg creat Potential sources of large amounts of morphine in the absence of codeine include administration of morphine or use of heroin. Normorphine is an expected metabolite of morphine. Oxycodone 4959 ng/mg creat Oxymorphone 3010 ng/mg creat Noroxycodone 2027 ng/mg creat Noroxymorphone 508 ng/mg creat Sources of oxycodone are scheduled prescription medications. Oxymorphone, noroxycodone, and noroxymorphone are expected metabolites of oxycodone. Oxymorphone is also available as a scheduled prescription medication. Gabapentin PRESENT Citalopram PRESENT Desmethylcitalopram PRESENT Desmethylcitalopram is an expected metabolite of citalopram or the enantiomeric form, escitalopram. Mirtazapine PRESENT Acetaminophen PRESENT Ibuprofen PRESENT Propranolol PRESENT Test Result Flag Units Ref Range Creatinine 63 mg/dL >=20 Declared Medications: Medication list was not provided. For clinical consultation, please call . REVIEW OF SYSTEMS: GENERAL: No weight loss or fevers RESPIRATORY: Negative for cough CARDIOVASCULAR: Negative for chest pain GI: No nausea, vomiting, or diarrhea. PAST MEDICAL HISTORY Diagnosis Date Abdominal pain, epigastric Abdominal pain, epigastric Abdominal pain, generalized Abdominal pain, right upper quadrant Acute gastritis without mention of hemorrhage Arachnoiditis Benign neoplasm of colon Benign neoplasm of duodenum, jejunum, and ileum Degeneration of intervertebral disc, site unspecified Depressive disorder, not elsewhere classified Diabetes (HCC) Diarrhea Diverticulitis of colon (without mention of hemorrhage)(562.11) Esophageal reflux Essential hypertension, malignant Headache(784.0) Hemorrhage of gastrointestinal tract, unspecified Internal hemorrhoids without mention of complication Nonorganic sleep disorder, unspecified Obstructive sleep apnea (adult) (pediatric) Other and unspecified hyperlipidemia Paralysis agitans (HCC) Parkinson's Disease Parkinson disease (HCC) PMH - PAST MEDICAL HISTORY OF glucose intolerant PAST SURGICAL HISTORY Procedure Laterality Date ARTHROSCOPY KNEE DIAGNOSTIC W/WO SYNOVIAL BX SPX left knee-reset patella COLONOSCOPY FLX DX W/COLLJ SPEC WHEN PFRMD 04/25/2006 Colonoscopy COLONOSCOPY FLX DX W/COLLJ SPEC WHEN PFRMD 09/20/2002 Colonoscopy COLONOSCOPY FLX DX W/COLLJ SPEC WHEN PFRMD 06/07/2015 Colonoscopy EGD TRANSORAL BIOPSY SINGLE/MULTIPLE 07/06/2009 ESOPHAGOGASTRODUODENOSCOPY TRANSORAL DIAGNOSTIC 04/25/2006 EGD ESOPHAGOGASTRODUODENOSCOPY TRANSORAL DIAGNOSTIC 09/20/2002 EGD ESOPHAGOGASTRODUODENOSCOPY TRANSORAL DIAGNOSTIC 06/07/2015 EGD LAPAROSCOPY SURG CHOLECYSTECTOMY 06/16/2000 Cholecystectomy, lap PAST SURGICAL HISTORY OF 06/16/1989 L-5, S-1 back surgery PAST SURGICAL HISTORY OF carpal tunnel PAST SURGICAL HISTORY OF Left 2019 IT Band Release SIGMOIDOSCOPY FLX DX W/COLLJ SPEC BR/WA IF PFRMD 07/06/2009 STEREOTACTIC CORE BIOPSY 04/11/2006 RIGHT BREAST BIOPSY TOTAL ABDOMINAL HYSTERECT W/WO RMVL TUBE OVARY 06/16/1994 Hysterectomy, JUANY FAMILY HISTORY Problem Relation Age of Onset Cancer Mother breast Diabetes Mother Heart Mother Heart Father Colon Cancer Father dx in his early forties Social History Tobacco Use Smoking status: Never Smokeless tobacco: Never Substance Use Topics Alcohol use: No Drug use: No Allergies: Biaxin [Clarithromy* Indocin [Indomethac* Penicillins Current Outpatient Medications Medication Sig [START ON 08/24/2022] morphine SR (MS CONTIN, ORAMORPH SR) 15 mg 12 hr tablet Take 1 tablet by mouthevery 12 hours as needed for pain for up to 30 days. For Pain Do not start before August 24, 2022. [START ON 08/24/2022] oxyCODONE-acetaminophen (PERCOCET) 5-325 mg tablet Take 1 tablet by mouth twice daily as needed for pain for up to 30 days. Do not start before August 24, 2022. [START ON 08/04/2022] gabapentin (NEURONTIN) 600 mg tablet Take 1 tablet by mouth three times daily for 30 days. Do not start before August 04, 2022. clindamycin (CLEOCIN) 150 mg capsule Take 150 mg by mouth three times daily. ibuprofen (MOTRIN) 600 mg tablet TAKE 1 TABLET BY MOUTH THREE TIMES DAILY for 5 days escitalopram oxalate (LEXAPRO) 10 mg tablet Take 10 mg by mouth. carbidopa-levodopa (SINEMET 25-100) 25-100 mg per tablet Take 1 tablet by mouth three times daily. dextromethorphan Hbr/quinidine (DEXTROMETHORPHAN-QUINIDINE ORAL) Nuedexta 20/10 Active 1 TAB DAILY March 18, 2013 12:30pm TRULICITY 1.5 mg/0.5 mL pen injector inject 1 (ONE) pen (1.5mg) SUBCUTANEOUSLY EVERY WEEK escitalopram oxalate (LEXAPRO) 10 mg tablet Escitalopram Oxalate Active 10 MG DAILY February 2:15am escitalopram oxalate (LEXAPRO) 10 mg tablet Take 10 mg by mouth once daily. glimepiride (AMARYL) 4 mg tablet Take 4 mg by mouth every morning. insulin lispro (HUMALOG KWIKPEN) 100 unit/mL INJECT 20 units under the skin before meals mirtazapine (REMERON) 30 mg tablet Take by mouth. naloxone 4 mg/actuation nasal spray (NARCAN) Narcan 4 mg/actuation spray,non-aerosol omeprazole (PRILOSEC) 40 mg capsule Take by mouth. ondansetron orally disintegrating (ZOFRAN ODT) 4 mg disintegrating tablet 4 mg. tiZANidine (ZANAFLEX) 4 mg tablet Take 4 mg by mouth twice daily. lcljfuzti-uhpxorht-rsnnbfolai (STALEVO 100) 25-100-200 mg per tablet Take 1 tablet by mouth twice daily. metFORMIN (GLUCOPHAGE) 1,000 mg tablet Take 1,000 mg by mouth twice daily. LEVEMIR FLEXTOUCH U-100 INSULIN 100 unit/mL (3 mL) injection pen INJECT TEN UNITS AT BEDTIME propranolol (INDERAL) 20 mg tablet Take 20 mg by mouth three times daily. diclofenac (VOLTAREN) 1 % topical gel Apply 4 g to affected area four times daily. BIPAP esomeprazole (NEXIUM) 40 mg capsule Take 40 mg by mouth. CARBIDOPA/LEVODOPA/ENTACAPONE (STALEVO 150 ORAL) Take by mouth. metFORMIN ER (GLUCOPHAGE XR) 500 mg 24 hr tablet Take 1 tablet by mouth three times daily. rasagiline (AZILECT) 1 mg tab Take 1 tablet by mouth once daily. clonazePAM (KLONOPIN) 0.5 mg tablet Take 2 tablets by mouth at bedtime as needed. No current facility-administered medications for this visit. PHYSICAL EXAMINATION: VIDEO EXAM: (performed via video enabled technology) GENERAL: alert and appropriate, in no distress, well-hydrated, well nourished and happy, smiling, interactive HEAD: normocephalic, no abnormality or lesion noted RESPIRATORY: breathing non-labored ASSESSMENT: Patient is stable. Chronic pain is persistent. Medications are helping Roseanna Jones to have an improved quality of life. Patient compliance with Opioid Contract: patient is compliant Encounter Diagnosis ICD-10-CM 1. Encounter for long-term (current) use of medications Z79.899 morphine SR (MS CONTIN, ORAMORPH SR) 15 mg 12 hr tablet oxyCODONE-acetaminophen (PERCOCET) 5-325 mg tablet 2. Lumbar radiculopathy M54.16 3. Encounter for long-term (current) use of high-risk medication Z79.899 4. Postlaminectomy syndrome, lumbar region M96.1 5. Lumbar post-laminectomy syndrome M96.1 6. Other chronic pain G89.29 7. Neck pain M54.2 8. Cervicalgia M54.2 PLAN: The patient understands the goal of our treatment is a reduction in pain and/or an improved level of functioning with activities of daily living. If at any time the patient does not feel the medications are helping them to achieve these goals, the medications may be discontinued. The patient reports a reduction in pain and/or an improved level of functioning with activities of daily living, denies any significant adverse effects, is compliant with the pain management agreement and there are no signs of medication misuse, abuse or diversion; therefore, the medications will be continued. Continue MS Contin and percocet(mmeq=45) Continue Diamox prn Continue Zanaflex Rx'D by PCP Follow-up with Dr. Mcbride(At [facility]) Continue Gabapentin. Encouraged to talk to PCP (Dr. Randhawa) about your gastroparesis F/U with Dr. Harper (IT bands) Follow-up with Dr. Butler (neurologist) Follow-up in 1 month Katty Steiner APRN.CNP [facility] Instructions* Patient Instructions* Katty Steiner APRN.CNP - 07/04/2022 1:12 PM EST Continue MS Contin and percocet(mmeq=45) Continue Diamox prn Continue Zanaflex Rx'D by PCP Follow-up with Dr. Mcbride(At [facility] Continue Gabapentin. Encouraged to talk to PCP (Dr. Randhawa) about your gastroparesis F/U with Dr. Harper (IT bands) Follow-up with Dr. Butler (neurologist) Follow-up in 1 month Katty Steiner APRN.CNP [facility] History of Present illness Narrative* Katty Steiner APRN.CNP - 07/04/2022 1:06 PM EST This video visit was performed via naaya video visit. Patient consented to receive health care services via virtual visit for this encounter [facility] Patient Location: Patient Home or Place of Residence Risks, benefits, and limitations of receiving care virtually were discussed with the patient. The patient expressed understanding and is willing to proceed. Chief Complaint: Pain History of Present Illness: Roseanna Jones is a 62 year old year old female being seen at [facility] for a evaluation and/or management of her chronic pain. Roseanna Jones last had an office visit on 07/25/21, virtual visit on 05/31/22. Since the last visit her pain level has remained stable. VAS:8/10 Pain Location: back, neck, leg, arms Radiation: down left leg Character: aching, burning Numbness/tingling: toes left foot and hand Burning: left foot Weakness: denies Falls: denies Worsening factors: walking, standing, bending, activity Relieving factors: heat, ice and rest Patient denies any bowel or bladder dysfunction. Since the last office visit the patients medical history has not changed. The patient denies any new diagnoses, hospital visits or ER visits. The patient is currently prescribed morphine, percocet, and gabapentin from our office. The last dose of Percocet/MS and Gabapentin was taken today at 8:00 a.m. The medications are effective. The patient denies nausea, vomiting, constipation,rashes, drowsiness,weight gain, weight loss,dizziness,andfatigue. The OARRS report has been reviewed and is consistent with the patients medical history and medication intake. Last Urine Drug Screen (UDS): 03/28/22. The UDS has been reviewed and is consistent with medications prescribed. REVIEW OF SYSTEMS: GENERAL: No weight loss or fevers RESPIRATORY: Negative for cough CARDIOVASCULAR: Negative for chest pain GI: No nausea, vomiting, or diarrhea. PAST MEDICAL HISTORY Diagnosis Date Abdominal pain, epigastric Abdominal pain, epigastric Abdominal pain, generalized Abdominal pain, right upper quadrant Acute gastritis without mention of hemorrhage Arachnoiditis Benign neoplasm of colon Benign neoplasm of duodenum, jejunum, and ileum Degeneration of intervertebral disc, site unspecified Depressive disorder, not elsewhere classified Diabetes (HCC) Diarrhea Diverticulitis of colon (without mention of hemorrhage)(562.11) Esophageal reflux Essential hypertension, malignant Headache(784.0) Hemorrhage of gastrointestinal tract, unspecified Internal hemorrhoids without mention of complication Nonorganic sleep disorder, unspecified Obstructive sleep apnea (adult) (pediatric) Other and unspecified hyperlipidemia Paralysis agitans (HCC) Parkinson's Disease Parkinson disease (HCC) PMH - PAST MEDICAL HISTORY OF glucose intolerant PAST SURGICAL HISTORY Procedure Laterality Date ARTHROSCOPY KNEE DIAGNOSTIC W/WO SYNOVIAL BX SPX left knee-reset patella COLONOSCOPY FLX DX W/COLLJ SPEC WHEN PFRMD 04/25/2006 Colonoscopy COLONOSCOPY FLX DX W/COLLJ SPEC WHEN PFRMD 09/20/2002 Colonoscopy COLONOSCOPY FLX DX W/COLLJ SPEC WHEN PFRMD 06/07/2015 Colonoscopy EGD TRANSORAL BIOPSY SINGLE/MULTIPLE 07/06/2009 ESOPHAGOGASTRODUODENOSCOPY TRANSORAL DIAGNOSTIC 04/25/2006 EGD ESOPHAGOGASTRODUODENOSCOPY TRANSORAL DIAGNOSTIC 09/20/2002 EGD ESOPHAGOGASTRODUODENOSCOPY TRANSORAL DIAGNOSTIC 06/07/2015 EGD LAPAROSCOPY SURG CHOLECYSTECTOMY 06/16/2000 Cholecystectomy, lap PAST SURGICAL HISTORY OF 06/16/1989 L-5, S-1 back surgery PAST SURGICAL HISTORY OF carpal tunnel PAST SURGICAL HISTORY OF Left 2019 IT Band Release SIGMOIDOSCOPY FLX DX W/COLLJ SPEC BR/WA IF PFRMD 07/06/2009 STEREOTACTIC CORE BIOPSY 04/11/2006 RIGHT BREAST BIOPSY TOTAL ABDOMINAL HYSTERECT W/WO RMVL TUBE OVARY 06/16/1994 Hysterectomy, JUANY FAMILY HISTORY Problem Relation Age of Onset Cancer Mother breast Diabetes Mother Heart Mother Heart Father Colon Cancer Father dx in his early forties Social History Tobacco Use Smoking status: Never Smokeless tobacco: Never Substance Use Topics Alcohol use: No Drug use: No Allergies: Biaxin [Clarithromy* Indocin [Indomethac* Penicillins Current Outpatient Medications Medication Sig morphine SR (MS CONTIN, ORAMORPH SR) 15 mg 12 hr tablet Take 1 tablet by mouth every 12 hours as needed for pain for up to 30 days. For Pain Do not start before June 25, 2022. oxyCODONE-acetaminophen (PERCOCET) 5-325 mg tablet Take 1 tablet by mouth twice daily as needed forpain for up to 30 days. Do not start before June 25, 2022. gabapentin (NEURONTIN) 600 mg tablet Take 1 tablet by mouth three times daily for 30 days. clindamycin (CLEOCIN) 150 mg capsule Take 150 mg by mouth three times daily. ibuprofen (MOTRIN) 600 mg tablet TAKE 1 TABLET BY MOUTH THREE TIMES DAILY for 5 days escitalopram oxalate (LEXAPRO) 10 mg tablet Take 10 mg by mouth. carbidopa-levodopa (SINEMET 25-100) 25-100 mg per tablet Take 1 tablet by mouth three times daily. dextromethorphan Hbr/quinidine (DEXTROMETHORPHAN-QUINIDINE ORAL) Nuedexta 20/10 Active 1 TAB DAILY March 18, 2013 12:30pm TRULICITY 1.5 mg/0.5 mL pen injector inject 1 (ONE) pen (1.5mg) SUBCUTANEOUSLY EVERY WEEK escitalopram oxalate (LEXAPRO) 10 mg tablet Escitalopram Oxalate Active 10 MG DAILY February 2:15am escitalopram oxalate (LEXAPRO) 10 mg tablet Take 10 mg by mouth once daily. glimepiride (AMARYL) 4 mg tablet Take 4 mg by mouth every morning. insulin lispro (HUMALOG KWIKPEN) 100 unit/mL INJECT 20 units under the skin before meals mirtazapine (REMERON) 30 mg tablet Take by mouth. naloxone 4 mg/actuation nasal spray (NARCAN) Narcan 4 mg/actuation spray,non-aerosol omeprazole (PRILOSEC) 40 mg capsule Take by mouth. ondansetron orally disintegrating (ZOFRAN ODT) 4 mg disintegrating tablet 4 mg. tiZANidine (ZANAFLEX) 4 mg tablet Take 4 mg by mouth twice daily. ipjsgdmsy-ttzuqvno-evitnvdgzk (STALEVO 100) 25-100-200 mg per tablet Take 1 tablet by mouth twice daily. metFORMIN (GLUCOPHAGE) 1,000 mg tablet Take 1,000 mg by mouth twice daily. LEVEMIR FLEXTOUCH U-100 INSULIN 100 unit/mL (3 mL) injection pen INJECT TEN UNITS AT BEDTIME propranolol (INDERAL) 20 mg tablet Take 20 mg by mouth three times daily. diclofenac (VOLTAREN) 1 % topical gel Apply 4 g to affected area four times daily. BIPAP esomeprazole (NEXIUM) 40 mg capsule Take 40 mg by mouth. CARBIDOPA/LEVODOPA/ENTACAPONE (STALEVO 150 ORAL) Take by mouth. metFORMIN ER (GLUCOPHAGE XR) 500 mg 24 hr tablet Take 1 tablet by mouth three times daily. rasagiline (AZILECT) 1 mg tab Take 1 tablet by mouth once daily. clonazePAM (KLONOPIN) 0.5 mg tablet Take 2 tablets by mouth at bedtime as needed. No current facility-administered medications for this visit. PHYSICAL EXAMINATION: VIDEO EXAM: (performed via video enabled technology) GENERAL: alert and appropriate, in no distress, well-hydrated, well nourished and happy, smiling, interactive HEAD: normocephalic, no abnormality or lesion noted RESPIRATORY: breathing non-labored ASSESSMENT: Patient is stable. Chronic pain is persistent. Medications are helping Roseanna Jones to have an improved quality of life. Patient compliance with Opioid Contract: patient is compliant Encounter Diagnosis ICD-10-CM 1. Encounter for long-term (current) use of medications Z79.899 2. Lumbar radiculopathy M54.16 3. Encounter for long-term (current) use of high-risk medication Z79.899 4. Postlaminectomy syndrome, lumbar region M96.1 5. Cervicalgia M54.2 6. Neck pain M54.2 7. Other chronic pain G89.29 8. Lumbar post-laminectomy syndrome M96.1 PLAN: The patient understands the goal of our treatment is a reduction in pain and/or an improved level of functioning with activities of daily living. If at any time the patient does not feel the medications are helping them to achieve these goals, the medications may be discontinued. The patient reports a reduction in pain and/or an improved level of functioning with activities of daily living, denies any significant adverse effects, is compliant with the pain management agreement and there are no signs of medication misuse, abuse or diversion; therefore, the medications will be continued. Continue MS Contin and percocet(mmeq=45) Continue Diamox prn Continue Zanaflex Rx'D by PCP Follow-up with Dr. Mcbride(At [facility]) Continue Gabapentin. Encouraged to talk to PCP (Dr. Randhawa) about your gastroparesis F/U with Dr. Harper (IT bands) Follow-up with Dr. Butler (neurologist) Follow-up in 1 month Katty Steiner APRN.CNP documented [facility]Reg[facility]01-06-2023 Miscellaneous Notes* Telephone Encounter - Katty Steiner APRN.CNP - 06/21/2022 4:16 PM EST The following approved medication requests have been transmitted electronically. Requested Prescriptions Signed Prescriptions Disp Refills morphine SR (MS CONTIN, ORAMORPH SR) 15 mg 12 hr tablet 60 tablet 0 Sig: Take 1 tablet by mouth every 12 hours as needed for pain for up to 30 days. For Pain Do not start before June 25, 2022. Authorizing Provider: KATTY STEINER oxyCODONE-acetaminophen (PERCOCET) 5-325 mg tablet 60 tablet 0 Sig: Take 1 tablet by mouth twice daily as needed for pain for up to 30 days. Do not start before June 25, 2022. Authorizing Provider: KATTY STEINER APRN.CNP * Telephone Encounter - Komal Kennedy RN - 06/21/2022 2:37 PM EST Patient phones requesting refills as follows: Requested Prescriptions Pending Prescriptions Disp Refills morphine SR (MS CONTIN, ORAMORPH SR) 15 mg 12 hr tablet 60 tablet 0 Sig: Take 1 tablet by mouth every 12 hours as needed for pain for up to 30 days. For Pain Do not start before June 25, 2022. oxyCODONE-acetaminophen (PERCOCET) 5-325 mg tablet 60 tablet 0 Sig: Take 1 tablet by mouth twice daily as needed for pain for up to 30 days. Do not start before June 25, 2022. Please review and advise. Komal Kennedy RN documented in [facility]Reg[facility]12-21-2022 Miscellaneous Notes* Telephone Encounter - Katty Steiner APRN.CNP - 06/05/2022 1:08 PM EST The following approved medication requests have been transmitted electronically. Requested Prescriptions Signed Prescriptions Disp Refills gabapentin (NEURONTIN) 600 mg tablet 90 tablet 0 Sig: Take 1 tablet by mouth three times daily for 30 days. Authorizing Provider: KATTY STEINER APRN.CNP * Telephone Encounter - Dalia Posey RN - 06/05/2022 11:31 AM EST Pt requesting refill as follows Requested Prescriptions Pending Prescriptions Disp Refills gabapentin (NEURONTIN) 600 mg tablet 90 tablet 0 Sig: Take 1 tablet by mouth three times daily for 30 days. Please review and advise. Dalia Posey RN documented in this encounterReg[facility] Center12-16-2022 Instructions* Patient Instructions* Katty Steiner APRN.CNP - 05/31/2022 1:18 PM EST Continue MS Contin and percocet(mmeq=45) Continue Diamox prn Continue Zanaflex Rx'D by PCP Follow-up with Dr. Mcbride(At [facility] Continue Gabapentin. Encouraged to talk to PCP (Dr. Randhawa) about your gastroparesis F/U with Dr. Harper (IT bands) Follow-up with Dr. Butler (neurologist) Follow-up in 1 month Katty Steiner APRN.CNP documented in this encounterReg[facility] Center12-16-2022 History of Present illness Narrative* Katty Steiner APRN.CNP - 05/31/2022 1:14 PM EST This video visit was performed via naaya video visit. Patient consented to receive health care services via virtual visit for this encounter Provider Location: Non-[place] Patient Location: Patient Home or Place of Residence Risks, benefits, and limitations of receiving care virtually were discussed with the patient. The patient expressed understanding and is willing to proceed. Chief Complaint: Pain History of Present Illness: Roseanna Jones is a 62 year old year old female being seen at [facility] for a evaluation and/or management of her chronic pain. Roseanna Jones last had an office visit on 07/25/21, virtual visit on 04/26/22. Since the last visit her pain level has remained stable. VAS:7/10 Pain Location: back, neck, leg, arms Radiation: down left leg Character: aching, burning Numbness/tingling: toes left foot and hand Burning: left foot Weakness: denies Falls: denies Worsening factors: walking, standing, bending, activity Relieving factors: heat, ice and rest Patient denies any bowel or bladder dysfunction. Since the last office visit the patients medical history has not changed. The patient denies any new diagnoses, hospital visits or ER visits. The patient is currently prescribed morphine, percocet, and gabapentin from our office. The last dose of Percocet/MS and Gabapentin was taken today at 8:30 a.m. The medications are effective. The patient denies nausea, vomiting, constipation,rashes, drowsiness,weight gain, weight loss,dizziness,andfatigue. The OARRS report has been reviewed and is consistent with the patients medical history and medication intake. Last Urine Drug Screen (UDS): 03/28/22. The UDS has been reviewed and is consistent with medications prescribed. REVIEW OF SYSTEMS: GENERAL: No weight loss or fevers RESPIRATORY: Negative for cough CARDIOVASCULAR: Negative for chest pain GI: No nausea, vomiting, or diarrhea. PAST MEDICAL HISTORY Diagnosis Date Abdominal pain, epigastric Abdominal pain, epigastric Abdominal pain, generalized Abdominal pain, right upper quadrant Acute gastritis without mention of hemorrhage Arachnoiditis Benign neoplasm of colon Benign neoplasm of duodenum, jejunum, and ileum Degeneration of intervertebral disc, site unspecified Depressive disorder, not elsewhere classified Diabetes (HCC) Diarrhea Diverticulitis of colon (without mention of hemorrhage)(562.11) Esophageal reflux Essential hypertension, malignant Headache(784.0) Hemorrhage of gastrointestinal tract, unspecified Internal hemorrhoids without mention of complication Nonorganic sleep disorder, unspecified Obstructive sleep apnea (adult) (pediatric) Other and unspecified hyperlipidemia Paralysis agitans (HCC) Parkinson's Disease Parkinson disease (HCC) PMH - PAST MEDICAL HISTORY OF glucose intolerant PAST SURGICAL HISTORY Procedure Laterality Date ARTHROSCOPY KNEE DIAGNOSTIC W/WO SYNOVIAL BX SPX left knee-reset patella COLONOSCOPY FLX DX W/COLLJ SPEC WHEN PFRMD 04/25/2006 Colonoscopy COLONOSCOPY FLX DX W/COLLJ SPEC WHEN PFRMD 09/20/2002 Colonoscopy COLONOSCOPY FLX DX W/COLLJ SPEC WHEN PFRMD 06/07/2015 Colonoscopy EGD TRANSORAL BIOPSY SINGLE/MULTIPLE 07/06/2009 ESOPHAGOGASTRODUODENOSCOPY TRANSORAL DIAGNOSTIC 04/25/2006 EGD ESOPHAGOGASTRODUODENOSCOPY TRANSORAL DIAGNOSTIC 09/20/2002 EGD ESOPHAGOGASTRODUODENOSCOPY TRANSORAL DIAGNOSTIC 06/07/2015 EGD LAPAROSCOPY SURG CHOLECYSTECTOMY 06/16/2000 Cholecystectomy, lap PAST SURGICAL HISTORY OF 06/16/1989 L-5, S-1 back surgery PAST SURGICAL HISTORY OF carpal tunnel PAST SURGICAL HISTORY OF Left 2019 IT Band Release SIGMOIDOSCOPY FLX DX W/COLLJ SPEC BR/WA IF PFRMD 07/06/2009 STEREOTACTIC CORE BIOPSY 04/11/2006 RIGHT BREAST BIOPSY TOTAL ABDOMINAL HYSTERECT W/WO RMVL TUBE OVARY 06/16/1994 Hysterectomy, JUANY FAMILY HISTORY Problem Relation Age of Onset Cancer Mother breast Diabetes Mother Heart Mother Heart Father Colon Cancer Father dx in his early forties Social History Tobacco Use Smoking status: Never Smokeless tobacco: Never Substance Use Topics Alcohol use: No Drug use: No Allergies: Biaxin [Clarithromy* Indocin [Indomethac* Penicillins Current Outpatient Medications Medication Sig oxyCODONE-acetaminophen (PERCOCET) 5-325 mg tablet Take 1 tablet by mouth twice daily as needed forpain for up to 30 days. Do not start before May 26, 2022. morphine SR (MS CONTIN, ORAMORPH SR) 15 mg 12 hr tablet Take 1 tablet by mouth every 12 hours as needed for pain for up to 30 days. For Pain Do not start before May 26, 2022. clindamycin (CLEOCIN) 150 mg capsule Take 150 mg by mouth three times daily. ibuprofen (MOTRIN) 600 mg tablet TAKE 1 TABLET BY MOUTH THREE TIMES DAILY for 5 days escitalopram oxalate (LEXAPRO) 10 mg tablet Take 10 mg by mouth. gabapentin (NEURONTIN) 600 mg tablet Take 1 tablet by mouth three times daily for 30 days. Do not start before May 05, 2022. carbidopa-levodopa (SINEMET 25-100) 25-100 mg per tablet Take 1 tablet by mouth three times daily. dextromethorphan Hbr/quinidine (DEXTROMETHORPHAN-QUINIDINE ORAL) Nuedexta 20/10 Active 1 TAB DAILY March 18, 2013 12:30pm TRULICITY 1.5 mg/0.5 mL pen injector inject 1 (ONE) pen (1.5mg) SUBCUTANEOUSLY EVERY WEEK escitalopram oxalate (LEXAPRO) 10 mg tablet Escitalopram Oxalate Active 10 MG DAILY February 2:15am escitalopram oxalate (LEXAPRO) 10 mg tablet Take 10 mg by mouth once daily. glimepiride (AMARYL) 4 mg tablet Take 4 mg by mouth every morning. insulin lispro (HUMALOG KWIKPEN) 100 unit/mL INJECT 20 units under the skin before meals mirtazapine (REMERON) 30 mg tablet Take by mouth. naloxone 4 mg/actuation nasal spray (NARCAN) Narcan 4 mg/actuation spray,non-aerosol omeprazole (PRILOSEC) 40 mg capsule Take by mouth. ondansetron orally disintegrating (ZOFRAN ODT) 4 mg disintegrating tablet 4 mg. tiZANidine (ZANAFLEX) 4 mg tablet Take 4 mg by mouth twice daily. hdzccxdas-sllszdwb-cmxjxwoqyw (STALEVO 100) 25-100-200 mg per tablet Take 1 tablet by mouth twice daily. metFORMIN (GLUCOPHAGE) 1,000 mg tablet Take 1,000 mg by mouth twice daily. LEVEMIR FLEXTOUCH U-100 INSULIN 100 unit/mL (3 mL) injection pen INJECT TEN UNITS AT BEDTIME propranolol (INDERAL) 20 mg tablet Take 20 mg by mouth three times daily. diclofenac (VOLTAREN) 1 % topical gel Apply 4 g to affected area four times daily. BIPAP esomeprazole (NEXIUM) 40 mg capsule Take 40 mg by mouth. CARBIDOPA/LEVODOPA/ENTACAPONE (STALEVO 150 ORAL) Take by mouth. metFORMIN ER (GLUCOPHAGE XR) 500 mg 24 hr tablet Take 1 tablet by mouth three times daily. rasagiline (AZILECT) 1 mg tab Take 1 tablet by mouth once daily. clonazePAM (KLONOPIN) 0.5 mg tablet Take 2 tablets by mouth at bedtime as needed. No current facility-administered medications for this visit. PHYSICAL EXAMINATION: VIDEO EXAM: (performed via video enabled technology) GENERAL: alert and appropriate, in no distress, well-hydrated, well nourished and happy, smiling, interactive HEAD: normocephalic, no abnormality or lesion noted RESPIRATORY: breathing non-labored ASSESSMENT: Patient is stable. Chronic pain is persistent. Medications are helping Roseanna Jones to have an improved quality of life. Patient compliance with Opioid Contract: patient is compliant Encounter Diagnosis ICD-10-CM 1. Encounter for long-term (current) use of medications Z79.899 2. Lumbar radiculopathy M54.16 3. Encounter for long-term (current) use of high-risk medication Z79.899 4. Postlaminectomy syndrome, lumbar region M96.1 5. Cervicalgia M54.2 6. Lumbar post-laminectomy syndrome M96.1 7. Other chronic pain G89.29 PLAN: The patient understands the goal of our treatment is a reduction in pain and/or an improved level of functioning with activities of daily living. If at any time the patient does not feel the medications are helping them to achieve these goals, the medications may be discontinued. The patient reports a reduction in pain and/or an improved level of functioning with activities of daily living, denies any significant adverse effects, is compliant with the pain management agreement and there are no signs of medication misuse, abuse or diversion; therefore, the medications will be continued. Continue MS Contin and percocet(mmeq=45) Continue Diamox prn Continue Zanaflex Rx'D by PCP Follow-up with Dr. Mcbride(At [facility]) Continue Gabapentin. Encouraged to talk to PCP (Dr. Randhawa) about your gastroparesis F/U with Dr. Harper (IT bands) Follow-up with Dr. Butler (neurologist) Follow-up in 1 month Katty Steiner APRN.MACHINE SPECIALIST documented in this encounterReg[facility]12-08-2022 Miscellaneous Notes* Telephone Encounter - Lamar Daugherty APRN.MANUFACTURING RECRUITER - 05/23/2022 10:10 AM EST The following approved medication requests have been transmitted electronically. Requested Prescriptions Signed Prescriptions Disp Refills oxyCODONE-acetaminophen (PERCOCET) 5-325 mg tablet 60 tablet 0 Sig: Take 1 tablet by mouth twice daily as needed for pain for up to 30 days. Do not start before May 26, 2022. Authorizing Provider: LAMAR DAUGHERTY morphine SR (MS CONTIN, ORAMORPH SR) 15 mg 12 hr tablet 60 tablet 0 Sig: Take 1 tablet by mouth every 12 hours as needed for pain for up to 30 days. For Pain Do not start before May 26, 2022. Authorizing Provider: LAMAR DAUGHERTY APRN.CNS * Telephone Encounter - Komal Kennedy RN - 05/22/2022 1:47 PM EST Patient phones requesting refills as follows: Requested Prescriptions Pending Prescriptions Disp Refills oxyCODONE-acetaminophen (PERCOCET) 5-325 mg tablet 60 tablet 0 Sig: Take 1 tablet by mouth twice daily as needed for pain for up to 30 days. morphine SR (MS CONTIN, ORAMORPH SR) 15 mg 12 hr tablet 60 tablet 0 Sig: Take 1 tablet by mouth every 12 hours as needed for up to 30 days. For Pain Please review and advise. Komal Kennedy RN documented in this encounterRegional [facility] Center11-11-2022 Instructions* Patient Instructions* Katty Steiner APRN.CNP - 04/26/2022 1:43 PM EST Continue MS Contin and percocet(mmeq=45) Continue Diamox prn Continue Zanaflex Rx'D by PCP Follow-up with Dr. Mcbride(At [facility]) Continue Gabapentin. Encouraged to talk to PCP (Dr. Randhawa) about your gastroparesis F/U with Dr. Harper (IT bands) Follow-up with Dr. Butler (neurologist) Follow-up in 1 month Katty Steiner APRN.CNP documented in this encounterRegional Medical Center11-11-2022 History of Present illness Narrative* Katty Steiner APRN.CNP - 04/26/2022 1:35 PM EST This video visit was performed via naaya video visit. Patient consented to receive health care services via virtual visit for this encounter Provider [facility] Patient Location: Patient Home or Place of Residence Risks, benefits, and limitations of receiving care virtually were discussed with the patient. The patient expressed understanding and is willing to proceed. Chief Complaint: Pain History of Present Illness: Roseanna Jones is a 61 year old year old female being seen at [facility] for a evaluation and/or management of her chronic pain. Roseanna Jones last had an office visit on 07/25/21, virtual visit on 03/26/22. Since the last visit her pain level has remained stable. VAS:7/10 Pain Location: back, neck, leg, arms Radiation: down left leg Character: aching, burning Numbness/tingling: toes left foot and hand Burning: left foot Weakness: denies Falls: denies Worsening factors: walking, standing, bending, activity Relieving factors: heat, ice and rest Patient denies any bowel or bladder dysfunction. Since the last office visit the patients medical history has not changed. The patient denies any new diagnoses, hospital visits or ER visits. The patient is currently prescribed morphine, percocet, and gabapentin from our office. The last dose of Percocet/MS and Gabapentin was taken today at 8:30 a.m. The medications are effective. The patient denies nausea, vomiting, constipation,rashes, drowsiness,weight gain, weight loss,dizziness,andfatigue. The OARRS report has been reviewed and is consistent with the patients medical history and medication intake. Last Urine Drug Screen (UDS): 03/28/22. The UDS has been reviewed and is consistent with medications prescribed. REVIEW OF SYSTEMS: GENERAL: No weight loss or fevers RESPIRATORY: Negative for cough CARDIOVASCULAR: Negative for chest pain GI: No nausea, vomiting, or diarrhea. PAST MEDICAL HISTORY Diagnosis Date Abdominal pain, epigastric Abdominal pain, epigastric Abdominal pain, generalized Abdominal pain, right upper quadrant Acute gastritis without mention of hemorrhage Arachnoiditis Benign neoplasm of colon Benign neoplasm of duodenum, jejunum, and ileum Degeneration of intervertebral disc, site unspecified Depressive disorder, not elsewhere classified Diabetes (HCC) Diarrhea Diverticulitis of colon (without mention of hemorrhage)(562.11) Esophageal reflux Essential hypertension, malignant Headache(784.0) Hemorrhage of gastrointestinal tract, unspecified Internal hemorrhoids without mention of complication Nonorganic sleep disorder, unspecified Obstructive sleep apnea (adult) (pediatric) Other and unspecified hyperlipidemia Paralysis agitans (HCC) Parkinson's Disease Parkinson disease (HCC) PMH - PAST MEDICAL HISTORY OF glucose intolerant PAST SURGICAL HISTORY Procedure Laterality Date ARTHROSCOPY KNEE DIAGNOSTIC W/WO SYNOVIAL BX SPX left knee-reset patella COLONOSCOPY FLX DX W/COLLJ SPEC WHEN PFRMD 04/25/2006 Colonoscopy COLONOSCOPY FLX DX W/COLLJ SPEC WHEN PFRMD 09/20/2002 Colonoscopy COLONOSCOPY FLX DX W/COLLJ SPEC WHEN PFRMD 06/07/2015 Colonoscopy EGD TRANSORAL BIOPSY SINGLE/MULTIPLE 07/06/2009 ESOPHAGOGASTRODUODENOSCOPY TRANSORAL DIAGNOSTIC 04/25/2006 EGD ESOPHAGOGASTRODUODENOSCOPY TRANSORAL DIAGNOSTIC 09/20/2002 EGD ESOPHAGOGASTRODUODENOSCOPY TRANSORAL DIAGNOSTIC 06/07/2015 EGD LAPAROSCOPY SURG CHOLECYSTECTOMY 06/16/2000 Cholecystectomy, lap PAST SURGICAL HISTORY OF 06/16/1989 L-5, S-1 back surgery PAST SURGICAL HISTORY OF carpal tunnel PAST SURGICAL HISTORY OF Left 2019 IT Band Release SIGMOIDOSCOPY FLX DX W/COLLJ SPEC BR/WA IF PFRMD 07/06/2009 STEREOTACTIC CORE BIOPSY 04/11/2006 RIGHT BREAST BIOPSY TOTAL ABDOMINAL HYSTERECT W/WO RMVL TUBE OVARY 06/16/1994 Hysterectomy, JUANY FAMILY HISTORY Problem Relation Age of Onset Cancer Mother breast Diabetes Mother Heart Mother Heart Father Colon Cancer Father dx in his early forties Social History Tobacco Use Smoking status: Never Smokeless tobacco: Never Substance Use Topics Alcohol use: No Drug use: No Allergies: Biaxin [Clarithromy* Indocin [Indomethac* Penicillins Current Outpatient Medications Medication Sig escitalopram oxalate (LEXAPRO) 10 mg tablet Take 10 mg by mouth. clindamycin (CLEOCIN) 150 mg capsule Take 150 mg by mouth three times daily. ibuprofen (MOTRIN) 600 mg tablet TAKE 1 TABLET BY MOUTH THREE TIMES DAILY for 5 days morphine SR (MS CONTIN, ORAMORPH SR) 15 mg 12 hr tablet Take 1 tablet by mouth every 12 hours as needed for up to 30 days. For Pain Do not start before March 27, 2022. oxyCODONE-acetaminophen (PERCOCET) 5-325 mg tablet Take 1 tablet by mouth twice daily as needed forpain for up to 30 days. Do not start before March 27, 2022. gabapentin (NEURONTIN) 600 mg tablet Take 1 tablet by mouth three times daily for 30 days. Do not start before April 04, 2022. carbidopa-levodopa (SINEMET 25-100) 25-100 mg per tablet Take 1 tablet by mouth three times daily. dextromethorphan Hbr/quinidine (DEXTROMETHORPHAN-QUINIDINE ORAL) Nuedexta 20/10 Active 1 TAB DAILY March 18, 2013 12:30pm TRULICITY 1.5 mg/0.5 mL pen injector inject 1 (ONE) pen (1.5mg) SUBCUTANEOUSLY EVERY WEEK escitalopram oxalate (LEXAPRO) 10 mg tablet Escitalopram Oxalate Active 10 MG DAILY February 2:15am escitalopram oxalate (LEXAPRO) 10 mg tablet Take 10 mg by mouth once daily. glimepiride (AMARYL) 4 mg tablet Take 4 mg by mouth every morning. insulin lispro (HUMALOG KWIKPEN) 100 unit/mL INJECT 20 units under the skin before meals mirtazapine (REMERON) 30 mg tablet Take by mouth. naloxone 4 mg/actuation nasal spray (NARCAN) Narcan 4 mg/actuation spray,non-aerosol omeprazole (PRILOSEC) 40 mg capsule Take by mouth. ondansetron orally disintegrating (ZOFRAN ODT) 4 mg disintegrating tablet 4 mg. tiZANidine (ZANAFLEX) 4 mg tablet Take 4 mg by mouth twice daily. svxumehpy-fugkqqvs-rovcnxvier (STALEVO 100) 25-100-200 mg per tablet Take 1 tablet by mouth twice daily. metFORMIN (GLUCOPHAGE) 1,000 mg tablet Take 1,000 mg by mouth twice daily. LEVEMIR FLEXTOUCH U-100 INSULIN 100 unit/mL (3 mL) injection pen INJECT TEN UNITS AT BEDTIME propranolol (INDERAL) 20 mg tablet Take 20 mg by mouth three times daily. diclofenac (VOLTAREN) 1 % topical gel Apply 4 g to affected area four times daily. BIPAP esomeprazole (NEXIUM) 40 mg capsule Take 40 mg by mouth. CARBIDOPA/LEVODOPA/ENTACAPONE (STALEVO 150 ORAL) Take by mouth. metFORMIN ER (GLUCOPHAGE XR) 500 mg 24 hr tablet Take 1 tablet by mouth three times daily. rasagiline (AZILECT) 1 mg tab Take 1 tablet by mouth once daily. clonazePAM (KLONOPIN) 0.5 mg tablet Take 2 tablets by mouth at bedtime as needed. No current facility-administered medications for this visit. PHYSICAL EXAMINATION: VIDEO EXAM: (performed via video enabled technology) GENERAL: alert and appropriate, in no distress, well-hydrated, well nourished and happy, smiling, interactive HEAD: normocephalic, no abnormality or lesion noted RESPIRATORY: breathing non-labored ASSESSMENT: Patient is stable. Chronic pain is persistent. Medications are helping Roseanna Jones to have an improved quality of life. Patient compliance with Opioid Contract: patient is compliant Encounter Diagnosis ICD-10-CM 1. Chronic pain syndrome G89.4 2. Chronic pain disorder G89.4 3. Lumbar radiculopathy M54.16 4. Lumbar post-laminectomy syndrome M96.1 5. Cervicalgia M54.2 6. Postlaminectomy syndrome, lumbar region M96.1 7. Encounter for long-term (current) use of high-risk medication Z79.899 8. Encounter for long-term (current) use of medications Z79.899 9. Neck pain M54.2 PLAN: The patient understands the goal of our treatment is a reduction in pain and/or an improved level of functioning with activities of daily living. If at any time the patient does not feel the medications are helping them to achieve these goals, the medications may be discontinued. The patient reports a reduction in pain and/or an improved level of functioning with activities of daily living, denies any significant adverse effects, is compliant with the pain management agreement and there are no signs of medication misuse, abuse or diversion; therefore, the medications will be continued. Continue MS Contin and percocet(mmeq=45) Continue Diamox prn Continue Zanaflex Rx'D by PCP Follow-up with Dr. Mcbride(At [facility]) Continue Gabapentin. Encouraged to talk to PCP (Dr. Randhawa) about your gastroparesis F/U with Dr. Harper (IT bands) Follow-up with Dr. Butler (neurologist) Follow-up in 1 month Katty Steiner APRN.QUINCY documented in this encounterRegional Medical Center10-14-2022 Miscellaneous Notes* Telephone Encounter - Komal Kennedy RN - 03/29/2022 8:07 AM EDT Pt submitted UDS on 03/28/22. Komal Kennedy RN March 29, 2022 8:08 AM documented in this encounterRegional Medical Center10-11-2022 Instructions* Patient Instructions* Katty Steiner APRN.QUINCY - 03/26/2022 2:00 PM EDT Pt. To submit UDS within 5-7 days. Continue MS Contin and percocet(mmeq=45) Continue Diamox prn Continue Zanaflex Rx'D by PCP Follow-up with Dr. Mcbride(At [facility]) Continue Gabapentin. Encouraged to talk to PCP (Dr. Randhawa) about your gastroparesis F/U with Dr. Harper (IT bands) Follow-up with Dr. Butler (neurologist) Follow-up in 1 month Katty Steiner APRN.CNP documented in this encounterRegional Medical Center10-11-2022 History of Present illness Narrative* Ktaty Steiner APRN.CNP - 03/26/2022 1:55 PM EDT This video visit was performed via naaya video visit. Patient consented to receive health care services via virtual visit for this encounter Provider [facility] Patient Location: Patient Home or Place of Residence Risks, benefits, and limitations of receiving care virtually were discussed with the patient. The patient expressed understanding and is willing to proceed. Chief Complaint: Pain History of Present Illness: Roseanna Jones is a 61 year old year old female being seen at [facility] for a evaluation and/or management of her chronic pain. Roseanna Jones last had an office visit on 07/25/21, virtual visit on 02/22/22. Since the last visit her pain level has remained the same. VAS:7/10 Pain Location: back, neck, leg, arms Radiation: down left leg Character: aching, burning Numbness/tingling: toes left foot and hand Burning: left foot Weakness: denies Falls: denies Worsening factors: walking, standing, bending, activity Relieving factors: heat, ice and rest Patient denies any bowel or bladder dysfunction. Since the last office visit the patients medical history has not changed. The patient denies any new diagnoses, hospital visits or ER visits. The patient is currently prescribed morphine, percocet, and gabapentin from our office. The last dose of Percocet/MS and Gabapentin was taken today at 8:30 a.m. The medications are effective. The patient denies nausea, vomiting, constipation,rashes, drowsiness,weight gain, weight loss,dizziness,andfatigue. The OARRS report has been reviewed and is consistent with the patients medical history and medication intake. Last Urine Drug Screen (UDS): 07/25/2021. The UDS has been reviewed and is consistent with medications prescribed. REVIEW OF SYSTEMS: GENERAL: No weight loss or fevers RESPIRATORY: Negative for cough CARDIOVASCULAR: Negative for chest pain GI: No nausea, vomiting, or diarrhea. PAST MEDICAL HISTORY Diagnosis Date Abdominal pain, epigastric Abdominal pain, epigastric Abdominal pain, generalized Abdominal pain, right upper quadrant Acute gastritis without mention of hemorrhage Arachnoiditis Benign neoplasm of colon Benign neoplasm of duodenum, jejunum, and ileum Degeneration of intervertebral disc, site unspecified Depressive disorder, not elsewhere classified Diabetes (HCC) Diarrhea Diverticulitis of colon (without mention of hemorrhage)(562.11) Esophageal reflux Essential hypertension, malignant Headache(784.0) Hemorrhage of gastrointestinal tract, unspecified Internal hemorrhoids without mention of complication Nonorganic sleep disorder, unspecified Obstructive sleep apnea (adult) (pediatric) Other and unspecified hyperlipidemia Paralysis agitans (HCC) Parkinson's Disease Parkinson disease (HCC) PMH - PAST MEDICAL HISTORY OF glucose intolerant PAST SURGICAL HISTORY Procedure Laterality Date ARTHROSCOPY KNEE DIAGNOSTIC W/WO SYNOVIAL BX SPX left knee-reset patella COLONOSCOPY FLX DX W/COLLJ SPEC WHEN PFRMD 04/25/2006 Colonoscopy COLONOSCOPY FLX DX W/COLLJ SPEC WHEN PFRMD 09/20/2002 Colonoscopy COLONOSCOPY FLX DX W/COLLJ SPEC WHEN PFRMD 06/07/2015 Colonoscopy EGD TRANSORAL BIOPSY SINGLE/MULTIPLE 07/06/2009 ESOPHAGOGASTRODUODENOSCOPY TRANSORAL DIAGNOSTIC 04/25/2006 EGD ESOPHAGOGASTRODUODENOSCOPY TRANSORAL DIAGNOSTIC 09/20/2002 EGD ESOPHAGOGASTRODUODENOSCOPY TRANSORAL DIAGNOSTIC 06/07/2015 EGD LAPAROSCOPY SURG CHOLECYSTECTOMY 06/16/2000 Cholecystectomy, lap PAST SURGICAL HISTORY OF 06/16/1989 L-5, S-1 back surgery PAST SURGICAL HISTORY OF carpal tunnel PAST SURGICAL HISTORY OF Left 2019 IT Band Release SIGMOIDOSCOPY FLX DX W/COLLJ SPEC BR/WA IF PFRMD 07/06/2009 STEREOTACTIC CORE BIOPSY 04/11/2006 RIGHT BREAST BIOPSY TOTAL ABDOMINAL HYSTERECT W/WO RMVL TUBE OVARY 06/16/1994 Hysterectomy, JUANY FAMILY HISTORY Problem Relation Age of Onset Cancer Mother breast Diabetes Mother Heart Mother Heart Father Colon Cancer Father dx in his early forties Social History Tobacco Use Smoking status: Never Smokeless tobacco: Never Substance Use Topics Alcohol use: No Drug use: No Allergies: Biaxin [Clarithromy* Indocin [Indomethac* Penicillins Current Outpatient Medications Medication Sig dextromethorphan Hbr/quinidine (DEXTROMETHORPHAN-QUINIDINE ORAL) Nuedexta /10 Active 1 TAB DAILY March 18, 2013 12:30pm escitalopram oxalate (LEXAPRO) 10 mg tablet Escitalopram Oxalate Active 10 MG DAILY February 2:15am mirtazapine (REMERON) 30 mg tablet Take by mouth. naloxone 4 mg/actuation nasal spray (NARCAN) Narcan 4 mg/actuation spray,non-aerosol omeprazole (PRILOSEC) 40 mg capsule Take by mouth. ondansetron orally disintegrating (ZOFRAN ODT) 4 mg disintegrating tablet 4 mg. carbidopa-levodopa (SINEMET 25-100) 25-100 mg per tablet Take 1 tablet by mouth three times daily. TRULICITY 1.5 mg/0.5 mL pen injector inject 1 (ONE) pen (1.5mg) SUBCUTANEOUSLY EVERY WEEK escitalopram oxalate (LEXAPRO) 10 mg tablet Take 10 mg by mouth once daily. glimepiride (AMARYL) 4 mg tablet Take 4 mg by mouth every morning. insulin lispro (HUMALOG KWIKPEN) 100 unit/mL INJECT 20 units under the skin before meals tiZANidine (ZANAFLEX) 4 mg tablet Take 4 mg by mouth twice daily. xyytfnoxb-gsjzoykl-gyyomuvygs (STALEVO 100) 25-100-200 mg per tablet Take 1 tablet by mouth twice daily. metFORMIN (GLUCOPHAGE) 1,000 mg tablet Take 1,000 mg by mouth twice daily. morphine SR (MS CONTIN, ORAMORPH SR) 15 mg 12 hr tablet Take 1 tablet by mouth every 12 hours as needed for up to 30 days. For Pain Do not start before February 25, 2022. oxyCODONE-acetaminophen (PERCOCET) 5-325 mg tablet Take 1 tablet by mouth twice daily as needed forpain for up to 30 days. Do not start before February 25, 2022. gabapentin (NEURONTIN) 600 mg tablet Take 1 tablet by mouth three times daily for 30 days. Do not start before March 04, 2022. LEVEMIR FLEXTOUCH U-100 INSULIN 100 unit/mL (3 mL) injection pen INJECT TEN UNITS AT BEDTIME propranolol (INDERAL) 20 mg tablet Take 20 mg by mouth three times daily. diclofenac (VOLTAREN) 1 % topical gel Apply 4 g to affected area four times daily. BIPAP esomeprazole (NEXIUM) 40 mg capsule Take 40 mg by mouth. CARBIDOPA/LEVODOPA/ENTACAPONE (STALEVO 150 ORAL) Take by mouth. metFORMIN ER (GLUCOPHAGE XR) 500 mg 24 hr tablet Take 1 tablet by mouth three times daily. rasagiline (AZILECT) 1 mg tab Take 1 tablet by mouth once daily. clonazePAM (KLONOPIN) 0.5 mg tablet Take 2 tablets by mouth at bedtime as needed. No current facility-administered medications for this visit. PHYSICAL EXAMINATION: VIDEO EXAM: (performed via video enabled technology) GENERAL: alert and appropriate, in no distress, well-hydrated, well nourished and happy, smiling, interactive HEAD: normocephalic, no abnormality or lesion noted RESPIRATORY: breathing non-labored ASSESSMENT: Patient is stable. Chronic pain is persistent. Medications are helping Roseanna Jones to have an improved quality of life. Patient compliance with Opioid Contract: patient is compliant Encounter Diagnosis ICD-10-CM 1. Chronic pain syndrome G89.4 2. Chronic pain disorder G89.4 3. Lumbar radiculopathy M54.16 4. Lumbar post-laminectomy syndrome M96.1 PLAN: The patient understands the goal of our treatment is a reduction in pain and/or an improved level of functioning with activities of daily living. If at any time the patient does not feel the medications are helping them to achieve these goals, the medications may be discontinued. The patient reports a reduction in pain and/or an improved level of functioning with activities of daily living, denies any significant adverse effects, is compliant with the pain management agreement and there are no signs of medication misuse, abuse or diversion; therefore, the medications will be continued. Pt. To submit UDS within 5-7 days. Continue MS Contin and percocet(mmeq=45) Continue Diamox prn Continue Zanaflex Rx'D by PCP Follow-up with Dr. Mcbride(At [facility]) Continue Gabapentin. Encouraged to talk to PCP (Dr. Randhawa) about your gastroparesis F/U with Dr. Harper (IT bands) Follow-up with Dr. Butler (neurologist) Follow-up in 1 month Katty Steiner APRN.CNP documented in this encounterRegional Medical Center09-12-2022 Miscellaneous Notes* Telephone Encounter - Komal Kennedy RN - 02/25/2022 11:00 AM EDT Attempted to call pt. LMOM for pt to call the office back. Komal Kennedy RN February 25, 2022 11:01 AM * Telephone Encounter - Katty Steiner APRN.CNP - 02/22/2022 2:52 PM EDT Please call the pt next week for a UDS. Thank you documented in this encounterRegional Medical Center09-09-2022 Instructions* Patient Instructions* Katty Steiner APRN.CNP - 02/22/2022 2:07 PM EDT Continue MS Contin and percocet(mmeq=45) Continue Diamox prn Continue Zanaflex Rx'D by PCP Follow-up with Dr. Mcbride(At [facility]) Continue Gabapentin. Encouraged to talk to PCP (Dr. Randhawa) about your gastroparesis F/U with Dr. Harper (IT bands) Follow-up with Dr. Butler (neurologist) Follow-up in 1 month Katty Steiner APRN.CNP documented in this encounterRegional Medical Center09-09-2022 History of Present illness Narrative* Katty Steiner APRN.CNP - 02/22/2022 2:04 PM EDT This video visit was performed via naaya video visit. Patient consented to receive health care services via virtual visit for this encounter Provider [facility] Patient Location: Patient Home or Place of Residence Risks, benefits, and limitations of receiving care virtually were discussed with the patient. The patient expressed understanding and is willing to proceed. Chief Complaint: Pain History of Present Illness: Roseanna Jones is a 61 year old year old female being seen at [facility] for a evaluation and/or management of her chronic pain. Roseanna Jones last had an office visit on 07/25/21, virtual visit on 01/15/22. Since the last visit her pain level has remained the same. VAS:7/10 Pain Location: back, neck, leg, arms Radiation: down left leg Character: aching, burning Numbness/tingling: toes left foot and hand Burning: left foot Weakness: denies Falls: denies Worsening factors: walking, standing, bending, activity Relieving factors: heat, ice and rest Patient denies any bowel or bladder dysfunction. Since the last office visit the patients medical history has not changed. The patient denies any new diagnoses, hospital visits or ER visits. The patient is currently prescribed morphine, percocet, and gabapentin from our office. The last dose of Percocet/MS and Gabapentin was taken today at 8:30 a.m. The medications are effective. The patient denies nausea, vomiting, constipation,rashes, drowsiness,weight gain, weight loss,dizziness,andfatigue. The OARRS report has been reviewed and is consistent with the patients medical history and medication intake. Last Urine Drug Screen (UDS): 07/25/2021. The UDS has been reviewed and is consistent with medications prescribed. REVIEW OF SYSTEMS: GENERAL: No weight loss or fevers RESPIRATORY: Negative for cough CARDIOVASCULAR: Negative for chest pain GI: No nausea, vomiting, or diarrhea. PAST MEDICAL HISTORY Diagnosis Date Abdominal pain, epigastric Abdominal pain, epigastric Abdominal pain, generalized Abdominal pain, right upper quadrant Acute gastritis without mention of hemorrhage Arachnoiditis Benign neoplasm of colon Benign neoplasm of duodenum, jejunum, and ileum Degeneration of intervertebral disc, site unspecified Depressive disorder, not elsewhere classified Diabetes (HCC) Diarrhea Diverticulitis of colon (without mention of hemorrhage)(562.11) Esophageal reflux Essential hypertension, malignant Headache(784.0) Hemorrhage of gastrointestinal tract, unspecified Internal hemorrhoids without mention of complication Nonorganic sleep disorder, unspecified Obstructive sleep apnea (adult) (pediatric) Other and unspecified hyperlipidemia Paralysis agitans (HCC) Parkinson's Disease Parkinson disease (HCC) PMH - PAST MEDICAL HISTORY OF glucose intolerant PAST SURGICAL HISTORY Procedure Laterality Date ARTHROSCOPY KNEE DIAGNOSTIC W/WO SYNOVIAL BX SPX left knee-reset patella COLONOSCOPY FLX DX W/COLLJ SPEC WHEN PFRMD 04/25/2006 Colonoscopy COLONOSCOPY FLX DX W/COLLJ SPEC WHEN PFRMD 09/20/2002 Colonoscopy COLONOSCOPY FLX DX W/COLLJ SPEC WHEN PFRMD 06/07/2015 Colonoscopy EGD TRANSORAL BIOPSY SINGLE/MULTIPLE 07/06/2009 ESOPHAGOGASTRODUODENOSCOPY TRANSORAL DIAGNOSTIC 04/25/2006 EGD ESOPHAGOGASTRODUODENOSCOPY TRANSORAL DIAGNOSTIC 09/20/2002 EGD ESOPHAGOGASTRODUODENOSCOPY TRANSORAL DIAGNOSTIC 06/07/2015 EGD LAPAROSCOPY SURG CHOLECYSTECTOMY 06/16/2000 Cholecystectomy, lap PAST SURGICAL HISTORY OF 06/16/1989 L-5, S-1 back surgery PAST SURGICAL HISTORY OF carpal tunnel PAST SURGICAL HISTORY OF Left 2019 IT Band Release SIGMOIDOSCOPY FLX DX W/COLLJ SPEC BR/WA IF PFRMD 07/06/2009 STEREOTACTIC CORE BIOPSY 04/11/2006 RIGHT BREAST BIOPSY TOTAL ABDOMINAL HYSTERECT W/WO RMVL TUBE OVARY 06/16/1994 Hysterectomy, JUANY FAMILY HISTORY Problem Relation Age of Onset Cancer Mother breast Diabetes Mother Heart Mother Heart Father Colon Cancer Father dx in his early forties Social History Tobacco Use Smoking status: Never Smoker Smokeless tobacco: Not on file Substance Use Topics Alcohol use: No Drug use: No Allergies: Biaxin [Clarithromy* Indocin [Indomethac* Penicillins Current Outpatient Medications Medication Sig morphine SR (MS CONTIN, ORAMORPH SR) 15 mg 12 hr tablet Take 1 tablet by mouth every 12 hours as needed for up to 30 days. For Pain Do not start before December 27, 2021. gabapentin (NEURONTIN) 600 mg tablet Take 1 tablet by mouth three times daily for 30 days. Do not start before December 26, 2021. oxyCODONE-acetaminophen (PERCOCET) 5-325 mg tablet Take 1 tablet by mouth twice daily as needed forpain for up to 30 days. Do not start before December 27, 2021. LEVEMIR FLEXTOUCH U-100 INSULIN 100 unit/mL (3 mL) injection pen INJECT TEN UNITS AT BEDTIME propranolol (INDERAL) 20 mg tablet Take 20 mg by mouth three times daily. diclofenac (VOLTAREN) 1 % topical gel Apply 4 g to affected area four times daily. BIPAP esomeprazole (NEXIUM) 40 mg capsule Take 40 mg by mouth. CARBIDOPA/LEVODOPA/ENTACAPONE (STALEVO 150 ORAL) Take by mouth. propranolol ER (INDERAL LA) 120 mg 24 hr capsule Take 1 capsule by mouth twice daily. (Patient not taking: Reported on 12/20/2020 ) metFORMIN ER (GLUCOPHAGE XR) 500 mg 24 hr tablet Take 1 tablet by mouth three times daily. rasagiline (AZILECT) 1 mg tab Take 1 tablet by mouth once daily. clonazePAM (KLONOPIN) 0.5 mg tablet Take 2 tablets by mouth at bedtime as needed. (Patient not taking: Reported on 12/20/2020) No current facility-administered medications for this visit. PHYSICAL EXAMINATION: VIDEO EXAM: (performed via video enabled technology) GENERAL: alert and appropriate, in no distress, well-hydrated, well nourished and happy, smiling, interactive HEAD: normocephalic, no abnormality or lesion noted RESPIRATORY: breathing non-labored ASSESSMENT: Patient is stable. Chronic pain is persistent. Medications are helping Roseanna Jones to have an improved quality of life. Patient compliance with Opioid Contract: patient is compliant Encounter Diagnosis ICD-10-CM 1. Lumbar radiculopathy M54.16 2. Lumbar post-laminectomy syndrome M96.1 3. Neck pain M54.2 4. Chronic pain syndrome G89.4 PLAN: The patient understands the goal of our treatment is a reduction in pain and/or an improved level of functioning with activities of daily living. If at any time the patient does not feel the medications are helping them to achieve these goals, the medications may be discontinued. The patient reports a reduction in pain and/or an improved level of functioning with activities of daily living, denies any significant adverse effects, is compliant with the pain management agreement and there are no signs of medication misuse, abuse or diversion; therefore, the medications will be continued. Continue MS Contin and percocet(mmeq=45) Continue Diamox prn Continue Zanaflex Rx'D by PCP Follow-up with Dr. Mcbride(At [facility]) Continue Gabapentin. Encouraged to talk to PCP (Dr. Randhawa) about your gastroparesis F/U with Dr. Harper (IT bands) Follow-up with Dr. Butler (neurologist) Follow-up in 1 month Katty Steiner APRN.CNP documented in [facility] encounter[facility]22 History of Present illness Narrative* Adelita Mendoza, - 02/07/2022 1:42 PM EDT Images from the original note were not included. Follow Up Visit Chief Complaint Roseanna Jones is a 61 year old female who presents today for follow up office visit. Patient presents with: Left Hip - Follow Up, Pain History of Present Illness PAIN EVALUATION 02/07/2022 1339 Pain Level: 7 Pain Location: Hip-Left Description: Aching;Dull;Sore;Burning;Numbness;Tingling Duration Amount of Time: -- ongoing\ Frequency: Continuous Intervention/Comfort measure: Reposition;Relaxation;Other: See comment;Medication;Cold;Heat pain management, physical therapy HPI: Roseanna Jones is a 61 year old female for a follow up visit left hip/IT band pain. Patient has completed about 4.5 months of PT and is still experiencing a lot of pain in her left hip. PT helped initially. Still in pain management. Pain history is noted as above. Denies calf pain, numbness, ti ngling, fever, chills or other constitutional symptoms. Left hemiparesis, wrosening with burning pain in left leg, wakes patient up at night, saw provider in [place] about possibility of botox and states [facility] only does neck/migraine botox. Has not had change in medications or medical history recently. Was in pt august for 4 months, 3 months into PT failed to improve and doing some HEP. Unable to do back injections bc of arachnoidititis, see chart for further details, pain radiating down her entire leg from back /top of leg to calf. Is there any overall improvement in your condition? No Any new injury, since being seen last: No REVIEW OF SYMPTOMS: Patient did not have, and does not currently have, any weight loss, malaise, fever, chills, headache, chest pain, chest pressure, palpitations, cough, shortness of breath, orthopnea, paroxsymal nocturnal dyspnea, nausea, vomiting, diarrhea, constipation, melena, hematochezia, urinary difficulties, prolonged bleeding, easily bruising, heat or cold intolerance, new onset joint pain or swelling, newonset extremity weakness or numbness, new onset auditory or visual disturbances, lightheadedness, dizziness, partial loss of consciousness or full loss of consciousness. Current Outpatient Medications Medication Sig morphine SR (MS CONTIN, ORAMORPH SR) 15 mg 12 hr tablet Take 1 tablet by mouth every 12 hours as needed for up to 30 days. For Pain Do not start before January 26, 2022. gabapentin (NEURONTIN) 600 mg tablet Take 1 tablet by mouth three times daily for 30 days. Do not start before February 02, 2022. oxyCODONE-acetaminophen (PERCOCET) 5-325 mg tablet Take 1 tablet by mouth twice daily as needed forpain for up to 30 days. Do not start before January 26, 2022. LEVEMIR FLEXTOUCH U-100 INSULIN 100 unit/mL (3 mL) injection pen INJECT TEN UNITS AT BEDTIME propranolol (INDERAL) 20 mg tablet Take 20 mg by mouth three times daily. diclofenac (VOLTAREN) 1 % topical gel Apply 4 g to affected area four times daily. BIPAP esomeprazole (NEXIUM) 40 mg capsule Take 40 mg by mouth. CARBIDOPA/LEVODOPA/ENTACAPONE (STALEVO 150 ORAL) Take by mouth. metFORMIN ER (GLUCOPHAGE XR) 500 mg 24 hr tablet Take 1 tablet by mouth three times daily. rasagiline (AZILECT) 1 mg tab Take 1 tablet by mouth once daily. clonazePAM (KLONOPIN) 0.5 mg tablet Take 2 tablets by mouth at bedtime as needed. No current facility-administered medications for this visit. Physical Exam Vitals: There were no vitals taken for this visit. Psych: Pleasant, good affect and mood General Appearance: Well appearing, alert, in no acute distress, well-hydrated, well nourished.. Skin: Skin color, texture, turgor normal, no suspicious rashes or lesions. Peripheral Pulses: Normal. Neurologic: Gait normal. Reflexes normal and symmetric. Sensation grossly intact.. Lymph Nodes: No cervical lymphadenopathy, No supraclavicular lymphadenopathy, No axillary lymphadenopathy., and No inguinal lymphadenopathy.. Respiratory: No recent pulmonary infection, hemoptysis, chronic cough, or shortness of breath at rest Rheumatologic: Joint deformities: left hip pain Right Knee Exam Right knee exam is normal. Muscle Strength The patient has normal right knee strength. Tenderness The patient is experiencing no tenderness. Range of Motion The patient has normal right knee ROM. Tests Charity: Anterior - negative Posterior - negative Drawer: Anterior - negative Posterior - negative Pivot shift: negative Other Erythema: absent Sensation: normal Pulse: present Swelling: none Left Knee Exam Comments: Rigid tightness of entire left lower leg, worse since last visit Assessment and Plan Radiographs: I have independently reviewed films and my findings are the same. Last MRI Hip/Pelvis - Impression Only MRI PELVIS ORTHO GENERAL WO IVCON Exam End: 12/21/2020 3:38 PM (Final result) Impression: IMPRESSION: Focal defect in the left iliotibial band with herniation of muscle and fat likely sequela of prior surgery. No significant bursal thickening or fluid collections adjacent to the iliotibial band. Legislative Aide: MADELIN ... Impression: Encounter Diagnosis ICD-10-CM 1. Parkinson disease (HCC) G20 2. Cerebrovascular accident (CVA) due to other mechanism (HCC) I63.89 Today, in detail, through a thorough evaluation, we discussed possible etiologies of pain and our plans for further diagnostic and therapeutic interventions. We discussed strategies for decreasing pain and improving strength, stability and motion. Patient's questions were answered in detailed. Patient verbalizes understanding and agrees with the treatment plan as discussed. Has more spasticity now in left leg, was doing PT and plateaued and is worsening. Ortho surgery notindicated at this time, would benefit possibly from systemic med changes and Neuro eval instead of waiting until jun to see her neurologist/ dr butler Follow up with dr butler as her exam is worse than previous in terms of rigidity in LE, not surgicalon my end- distinguish between stroke vs parkinson etiology best from neuro standpoint MRI of left hip from 01/03 shows postsurgical changes without increased bursitis Patient aware and in agreement of plan. All questions answered. documented in this encounterRegional [facility] Center08-12-2022 Instructions* Patient Instructions* Katty Steiner APRN.CNP - 01/25/2022 8:54 AM EDT Continue MS Contin and percocet(mmeq=45) Continue Diamox prn Continue Zanaflex Rx'D by PCP Follow-up with Dr. Mcbride(At [facility]) Continue Gabapentin. Encouraged to talk to PCP (Dr. Randhawa) about your gastroparesis F/U with Dr. Harper (IT bands) Follow-up with Dr. Butler (neurologist) Follow-up in 1 month -Please call [phone] option 1 to schedule appointments Katty Steiner APRN.QUINCY documented in this encounterRegional Medical Center08-12-2022 History of Present illness Narrative* Katty Steiner APRN.CNP - 01/25/2022 8:53 AM EDT . documented in this encounterRegional [facility] Center08-02-2022 Instructions* Patient Instructions* Katty Steiner APRN.CNP - 01/15/2022 4:59 PM EDT Continue MS Contin and percocet(mmeq=45) Continue Diamox prn Continue Zanaflex Rx'D by PCP Follow-up with Dr. Mcbride(At [facility]) Continue Gabapentin. Encouraged to talk to PCP (Dr. Randhawa) about your gastroparesis F/U with Dr. Harper (IT bands) Follow-up with Dr. Butler (neurologist) Follow-up in 1 month -Please call [phone] option 1 to schedule appointments Katty Steiner APRN.CNP documented in this encounterReg[facility] Center08-02-2022 History of Present illness Narrative* Katty Steiner APRN.CNP - 01/15/2022 4:45 PM EDTSummary: F/u This video visit was performed via naaya video visit. Patient consented to receive health care services via virtual visit for this encounter Provider Location: [place] Patient Location: Patient Home or Place of Residence Risks, benefits, and limitations of receiving care virtually were discussed with the patient. The patient expressed understanding and is willing to proceed. Chief Complaint: Pain History of Present Illness: Roseanna Jones is a 61 year old year old female being seen at [facility] for a evaluation and/or management of herchronic pain. Roseanna Jones last had an office visit on 07/25/21, virtual visit on 11/27/21. Since the last visit herpain level has remained the same. Pt. Completed PT for her cervical/lumbar area last week. VAS:7/10 Pain Location: back, neck, leg, arms Radiation: down left leg Character: aching, burning Numbness/tingling: toes left foot and hand Burning: left foot Weakness: denies Falls: denies Worsening factors: walking, standing, bending, activity Relieving factors: heat, ice and rest Patient denies any bowel or bladder dysfunction. Since the last office visit the patients medical history has not changed. The patient denies any new diagnoses, hospital visits or ER visits. The patient is currently prescribed morphine, percocet, and gabapentin from our office. The last dose of Percocet/MS and Gabapentin was taken today at 8:30 a.m. The medications are effective. The patient denies nausea, vomiting, constipation,rashes, drowsiness,weight gain, weight loss,dizziness,andfatigue. The OARRS report has been reviewed and is consistent with the patients medical history and medication intake. Last Urine Drug Screen (UDS): 07/25/2021. The UDS has been reviewed and is consistent with medications prescribed. REVIEW OF SYSTEMS: GENERAL: No weight loss or fevers RESPIRATORY: Negative for cough CARDIOVASCULAR: Negative for chest pain GI: No nausea, vomiting, or diarrhea. PAST MEDICAL HISTORY Diagnosis Date Abdominal pain, epigastric Abdominal pain, epigastric Abdominal pain, generalized Abdominal pain, right upper quadrant Acute gastritis without mention of hemorrhage Arachnoiditis Benign neoplasm of colon Benign neoplasm of duodenum, jejunum, and ileum Degeneration of intervertebral disc, site unspecified Depressive disorder, not elsewhere classified Diabetes (HCC) Diarrhea Diverticulitis of colon (without mention of hemorrhage)(562.11) Esophageal reflux Essential hypertension, malignant Headache(784.0) Hemorrhage of gastrointestinal tract, unspecified Internal hemorrhoids without mention of complication Nonorganic sleep disorder, unspecified Obstructive sleep apnea (adult) (pediatric) Other and unspecified hyperlipidemia Paralysis agitans (HCC) Parkinson's Disease Parkinson disease (HCC) PMH - PAST MEDICAL HISTORY OF glucose intolerant PAST SURGICAL HISTORY Procedure Laterality Date ARTHROSCOPY KNEE DIAGNOSTIC W/WO SYNOVIAL BX SPX left knee-reset patella COLONOSCOPY FLX DX W/COLLJ SPEC WHEN PFRMD 04/25/2006 Colonoscopy COLONOSCOPY FLX DX W/COLLJ SPEC WHEN PFRMD 09/20/2002 Colonoscopy COLONOSCOPY FLX DX W/COLLJ SPEC WHEN PFRMD 06/07/2015 Colonoscopy EGD TRANSORAL BIOPSY SINGLE/MULTIPLE 07/06/2009 ESOPHAGOGASTRODUODENOSCOPY TRANSORAL DIAGNOSTIC 04/25/2006 EGD ESOPHAGOGASTRODUODENOSCOPY TRANSORAL DIAGNOSTIC 09/20/2002 EGD ESOPHAGOGASTRODUODENOSCOPY TRANSORAL DIAGNOSTIC 06/07/2015 EGD LAPAROSCOPY SURG CHOLECYSTECTOMY 06/16/2000 Cholecystectomy, lap PAST SURGICAL HISTORY OF 06/16/1989 L-5, S-1 back surgery PAST SURGICAL HISTORY OF carpal tunnel PAST SURGICAL HISTORY OF Left 2019 IT Band Release SIGMOIDOSCOPY FLX DX W/COLLJ SPEC BR/WA IF PFRMD 07/06/2009 STEREOTACTIC CORE BIOPSY 04/11/2006 RIGHT BREAST BIOPSY TOTAL ABDOMINAL HYSTERECT W/WO RMVL TUBE OVARY 06/16/1994 Hysterectomy, JUANY FAMILY HISTORY Problem Relation Age of Onset Cancer Mother breast Diabetes Mother Heart Mother Heart Father Colon Cancer Father dx in his early forties Social History Tobacco Use Smoking status: Never Smoker Smokeless tobacco: Not on file Substance Use Topics Alcohol use: No Drug use: No Allergies: Biaxin [Clarithromy* Indocin [Indomethac* Penicillins Current Outpatient Medications Medication Sig morphine SR (MS CONTIN, ORAMORPH SR) 15 mg 12 hr tablet Take 1 tablet by mouth every 12 hours as needed for up to 30 days. For Pain Do not start before December 27, 2021. gabapentin (NEURONTIN) 600 mg tablet Take 1 tablet by mouth three times daily for 30 days. Do not start before December 26, 2021. oxyCODONE-acetaminophen (PERCOCET) 5-325 mg tablet Take 1 tablet by mouth twice daily as needed forpain for up to 30 days. Do not start before December 27, 2021. LEVEMIR FLEXTOUCH U-100 INSULIN 100 unit/mL (3 mL) injection pen INJECT TEN UNITS AT BEDTIME propranolol (INDERAL) 20 mg tablet Take 20 mg by mouth three times daily. diclofenac (VOLTAREN) 1 % topical gel Apply 4 g to affected area four times daily. BIPAP esomeprazole (NEXIUM) 40 mg capsule Take 40 mg by mouth. CARBIDOPA/LEVODOPA/ENTACAPONE (STALEVO 150 ORAL) Take by mouth. propranolol ER (INDERAL LA) 120 mg 24 hr capsule Take 1 capsule by mouth twice daily. (Patient not taking: Reported on 12/20/2020 ) metFORMIN ER (GLUCOPHAGE XR) 500 mg 24 hr tablet Take 1 tablet by mouth three times daily. rasagiline (AZILECT) 1 mg tab Take 1 tablet by mouth once daily. clonazePAM (KLONOPIN) 0.5 mg tablet Take 2 tablets by mouth at bedtime as needed. (Patient not taking: Reported on 12/20/2020) No current facility-administered medications for this visit. PHYSICAL EXAMINATION: VIDEO EXAM: (performed via video enabled technology) GENERAL: alert and appropriate, in no distress, well-hydrated, well nourished and happy, smiling, interactive HEAD: normocephalic, no abnormality or lesion noted RESPIRATORY: breathing non-labored ASSESSMENT: Patient is stable. Chronic pain is persistent. Medications are helping Roseanna Jones to have an improved quality of life. Patient compliance with Opioid Contract: patient is compliant Encounter Diagnosis ICD-10-CM 1. Lumbar radiculopathy M54.16 2. Lumbar post-laminectomy syndrome M96.1 3. Neck pain M54.2 4. Chronic pain syndrome G89.4 PLAN: The patient understands the goal of our treatment is a reduction in pain and/or an improved level of functioning with activities of daily living. If at any time the patient does not feel the medications are helping them to achieve these goals, the medications may be discontinued. The patient reports a reduction in pain and/or an improved level of functioning with activities of daily living, denies any significant adverse effects, is compliant with the pain management agreement and there are no signs of medication misuse, abuse or diversion; therefore, the medications will be continued. Continue MS Contin and percocet(mmeq=45) Continue Diamox prn Continue Zanaflex Rx'D by PCP Follow-up with Dr. Mcbride(At [facility]) Continue Gabapentin. Encouraged to talk to PCP (Dr. Randhawa) about your gastroparesis F/U with Dr. Harper (IT bands) Follow-up with Dr. Butler (neurologist) Follow-up in 1 month -Please call [phone] option 1 to schedule appointments Katty Steiner APRN.CNP documented in this encounterRegional Medical Center07-21-2022 Miscellaneous Notes* Telephone Encounter - Yoselin Worrell - 01/03/2022 11:03 AM EDT Patient is scheduled * Telephone Encounter - Maude Pruitt - 01/03/2022 10:21 AM EDT Referral sent from PCP Patient is seeking to have an appointment with Dr. Mendoza for left hip (IT band) irritation. Can we please reach out to patient and have her get scheduled first available appointment. Thank you for your help! Maude Pruitt documented in this encounterRegional Medical Center07-12-2022 Miscellaneous Notes* Telephone Encounter - Evelyn Simon RN - 12/25/2021 8:49 AM EDT Patient called the office stating she missed her virtual appt today due to not being aware they sheneeded to log into naaya. Patient is in need of refills. naaya help desk # given to patient. Verbalized the importance of the patient signing up for linkedüt. Call transferred to metal bonding assembler. Patient phones requesting refills as follows: Pending Prescriptions Disp Refills MORPHINE ER 15 MG TABLET,EXTENDED RELEASE 60 tablet 0 Sig: Take 1 tablet by mouth every 12 hours as needed for up to 30 days. For Pain JOSH Class: C-II GABAPENTIN 600 MG TABLET 90 tablet 0 Sig: Take 1 tablet by mouth three times daily for 30 days. OXYCODONE-ACETAMINOPHEN 5 MG-325 MG TABLET 60 tablet 0 Sig: Take 1 tablet by mouth twice daily as needed for pain for up to 30 days. JOSH Class: C-II Please review and advise. Evelyn Simon RN documented in this encounterRegional Medical Center12-23-2015 History of Past illness Narrative* Problem Noted Date Resolved Date Nausea 06/07/2015 06/07/[address] scan 06/07/201506/07 Essential hypertension, malignant 03/20/2016 documented as of this encounter (statuses as of 10/27/2021) [facility] Narrative* Problem Noted Date Resolved Date Nausea 06/07/2015 06/07/[address] scan 06/07/201506/07 Essential hypertension, malignant 03/20/2016 documented as of this encounter (statuses as of 11/28/2021) [facility] Narrative* Problem Noted Date Resolved Date Nausea 06/07/2015 06/07/[address] scan 06/07/201506/07 Essential hypertension, malignant 03/20/2016 documented as of this encounter (statuses as of 12/25/2021) [facility] Narrative* Problem Noted Date Resolved Date Nausea 06/07/2015 06/07/[address] scan 06/07/201506/07 Essential hypertension, malignant 03/20/2016 documented as of this encounter (statuses as of 12/26/2021) [facility] Narrative* Problem Noted Date Resolved Date Nausea 06/07/2015 06/07/[address] scan 06/07/201506/07 Essential hypertension, malignant 03/20/2016 documented as of this encounter (statuses as of 01/03/2022) [facility] Narrative* Problem Noted Date Resolved Date Nausea 06/07/2015 06/07/[address] scan 06/07/201506/07 Essential hypertension, malignant 03/20/2016 documented as of this encounter (statuses as of 01/15/2022) [address]23-2015 History of Past illness Narrative* Problem Noted Date Resolved Date Nausea 06/07/2015 06/07/[address] scan 06/07/201506/07 Essential hypertension, malignant 03/20/2016 documented as of this encounter (statuses as of 01/29/2022) [address]23-2015 History of Past illness Narrative* Problem Noted Date Resolved Date Nausea 06/07/2015 06/07/[address] scan 06/07/201506/07 Essential hypertension, malignant 03/20/2016 documented as of this encounter (statuses as of 02/08/2022) [address]23-2015 History of Past illness Narrative* Problem Noted Date Resolved Date Nausea 06/07/2015 06/07/[address] scan 06/07/201506/07 Essential hypertension, malignant 03/20/2016 documented as of this encounter (statuses as of 02/22/2022) [address]23-2015 History of Past illness Narrative* Problem Noted Date Resolved Date Nausea 06/07/2015 06/07/[address] scan 06/07/201506/07 Essential hypertension, malignant 03/20/2016 documented as of this encounter (statuses as of 02/25/2022) [address]23-2015 History of Past illness Narrative* Problem Noted Date Resolved Date Nausea 06/07/2015 06/07/[address] scan 06/07/201506/07 Essential hypertension, malignant 03/20/2016 documented as of this encounter (statuses as of 03/26/2022) [facility]* Problem Noted Date Resolved Date Nausea 06/07/2015 06/07/[address] scan 06/07/201506/07 Essential hypertension, malignant 03/20/2016 documented as of this encounter (statuses as of 03/29/2022) [address]23-2015 History of Past illness Narrative* Problem Noted Date Resolved Date Nausea 06/07/2015 06/07/[address] scan 06/07/201506/07 Essential hypertension, malignant 03/20/2016 documented as of this encounter (statuses as of 04/26/2022) [address]23-2015 History of Past illness Narrative* Problem Noted Date Resolved Date Nausea 06/07/2015 06/07/[address] scan 06/07/201506/07 Essential hypertension, malignant 03/20/2016 documented as of this encounter (statuses as of 05/23/2022) [address]23-2015 History of Past illness Narrative* Problem Noted Date Resolved Date Nausea 06/07/2015 06/07/[address] scan 06/07/201506/07 Essential hypertension, malignant 03/20/2016 documented as of this encounter (statuses as of 05/31/2022) [address]-2015 History of Past illness Narrative* Problem Noted Date Resolved Date Nausea 06/07/2015 06/07/[address] scan 06/07/201506/07 Essential hypertension, malignant 03/20/2016 documented as of this encounter (statuses as of 06/05/2022) [address]-2015 History of Past illness Narrative* Problem Noted Date Resolved Date Nausea 06/07/2015 06/07/[address] scan 06/07/201506/07 Essential hypertension, malignant 03/20/2016 documented as of this encounter (statuses as of 06/22/2022) [address]-2015 History of Past illness Narrative* Problem Noted Date Resolved Date Nausea 06/07/2015 06/07/[address] scan 06/07/201506/07 Essential hypertension, malignant 03/20/2016 documented as of this encounter (statuses as of 07/04/2022) [address]-2015 History of Past illness Narrative* Problem Noted Date Resolved Date Nausea 06/07/2015 06/07/[address] scan 06/07/201506/07 Essential hypertension, malignant 03/20/2016 documented as of this encounter (statuses as of 08/01/2022) [address]-2015 History of Past illness Narrative* Problem Noted Date Resolved Date Nausea 06/07/2015 06/07/[address] scan 06/07/201506/07 Essential hypertension, malignant 03/20/2016 documented as of this encounter (statuses as of 08/29/2022) [address]-2015 History of Past illness Narrative* Problem Noted Date Resolved Date Nausea 06/07/2015 06/07/[address] scan 06/07/201506/07 Essential hypertension, malignant 03/20/2016 documented as of this encounter (statuses as of 10/24/2022) [address]-2015 History of Past illness Narrative* Problem Noted Date Resolved Date Nausea 06/07/2015 06/07/[address] scan 06/07/201506/07 Essential hypertension, malignant 03/20/2016 documented as of this encounter (statuses as of 12/12/2022) [address]2015 History of Past illness Narrative* Problem Noted Date Diagnosed Date Resolved Date Nausea 06/07/2015 06/07/[address] scan 06/07/2015 1 08/08/2014 Essential hypertension, malignant 03/20/2016 documented as of this encounter (statuses as of 01/09/2023) [address]-2015 History of Past illness Narrative* Problem Noted Date Diagnosed Date Resolved Date Nausea 06/07/2015 06/07/[address] scan 06/07/2015 1 08/08/2014 Essential hypertension, malignant 03/20/2016 documented as of this encounter (statuses as of 01/10/2023) [address]2015 History of Past illness Narrative* Problem Noted Date Diagnosed Date Resolved Date Nausea 06/07/2015 06/07/[address] scan 06/07/2015 1 08/08/2014 Essential hypertension, malignant 03/20/2016 documented as of this encounter (statuses as of 02/19/2023) [address]2015 History of Past illness Narrative* Problem Noted Date Diagnosed Date Resolved Date Nausea 06/07/2015 06/07/[address] scan 06/07/2015 1 08/08/2014 Essential hypertension, malignant 03/20/2016 documented as of this encounter (statuses as of 02/20/2023) [address]2015 History of Past illness Narrative* Problem Noted Date Diagnosed Date Resolved Date Nausea 06/07/2015 06/07/[address] scan 06/07/2015 1 08/08/2014 Essential hypertension, malignant 03/20/2016 documented as of this encounter (statuses as of 03/11/2023) [address]2015 History of Past illness Narrative* Problem Noted Date Diagnosed Date Resolved Date Nausea 06/07/2015 06/07/[address] scan 06/07/2015 1 08/08/2014 Essential hypertension, malignant 03/20/2016 documented as of this encounter (statuses as of 03/15/2023) [address]2015 History of Past illness Narrative* Problem Noted Date Diagnosed Date Resolved Date Nausea 06/07/2015 06/07/[address] scan 06/07/2015 1 08/08/2014 Essential hypertension, malignant 03/20/2016 documented as of this encounter (statuses as of 03/15/2023) [address]2015 History of Past illness Narrative* Problem Noted Date Diagnosed Date Resolved Date Nausea 06/07/2015 06/07/[address] scan 06/07/2015 1 08/08/2014 Essential hypertension, malignant 03/20/2016 documented as of this encounter (statuses as of 04/03/2023) [address]2015 History of Past illness Narrative* Problem Noted Date Diagnosed Date Resolved Date Nausea 06/07/2015 06/07/[address] scan 06/07/2015 1 08/08/2014 Essential hypertension, malignant 03/20/2016 documented as of this encounter (statuses as of 04/04/2023) [address]2015 History of Past illness Narrative* Problem Noted Date Diagnosed Date Resolved Date Nausea 06/07/2015 06/07/[address] scan 06/07/2015 1 08/08/2014 Essential hypertension, malignant 03/20/2016 documented as of this encounter (statuses as of 04/04/2023) [facility] Past illness Narrative* Problem Noted Date Diagnosed Date Resolved Date Nausea 06/07/2015 06/07/[address] scan 06/07/2015 1 08/08/2014 Essential hypertension, malignant 03/20/2016 documented as of this encounter (statuses as of 04/07/2023) [address]2015 History of Past illness Narrative* Problem Noted Date Diagnosed Date Resolved Date Nausea 06/07/2015 06/07/[address] scan 06/07/2015 1 08/08/2014 Essential hypertension, malignant 03/20/2016 documented as of this encounter (statuses as of 04/07/2023) [address]2015 History of Past illness Narrative* Problem Noted Date Diagnosed Date Resolved Date Nausea 06/07/2015 06/07/[address] scan 06/07/2015 1 08/08/2014 Essential hypertension, malignant 03/20/2016 documented as of this encounter (statuses as of 04/09/2023) [facility] History of Past illness Narrative* Problem Noted Date Diagnosed Date Resolved Date Nausea 06/07/2015 06/07/[address] scan 06/07/2015 1 08/08/2014 Essential hypertension, malignant 03/20/2016 documented as of this encounter (statuses as of 04/16/2023) [address]2015 History of Past illness Narrative* Problem Noted Date Diagnosed Date Resolved Date Nausea 06/07/2015 06/07/[address] scan 06/07/2015 1 08/08/2014 Essential hypertension, malignant 03/20/2016 documented as of this encounter (statuses as of 04/20/2023) [facility] History of Past illness Narrative* Problem Noted Date Diagnosed Date Resolved Date Nausea 06/07/2015 06/07/[address] scan 06/07/2015 1 08/08/2014 Essential hypertension, malignant 03/20/2016 documented as of this encounter (statuses as of 05/14/2023) [facility] History of Past illness Narrative* Problem Noted Date Diagnosed Date Resolved Date Nausea 06/07/2015 06/07/[address] scan 06/07/2015 1 08/08/2014 Essential hypertension, malignant 03/20/2016 documented as of this encounter (statuses as of 05/15/2023) [facility] History of Past illness Narrative* Problem Noted Date Diagnosed Date Resolved Date Nausea 06/07/2015 06/07/[address] scan 06/07/2015 1 08/08/2014 Essential hypertension, malignant 03/20/2016 documented as of this encounter (statuses as of 05/15/2023) [facility] History of Past illness Narrative* Problem Noted Date Diagnosed Date Resolved Date Nausea 06/07/2015 06/07/[address] scan 06/07/2015 1 08/08/2014 Essential hypertension, malignant 03/20/2016 documented as of this encounter (statuses as of 06/06/2023) [address]2015 History of Past illness Narrative* Problem Noted Date Diagnosed Date Resolved Date Nausea 06/07/2015 06/07/[address] scan 06/07/2015 1 08/08/2014 Essential hypertension, malignant 03/20/2016 documented as of this encounter (statuses as of 06/06/2023) [address]2015 History of Past illness Narrative* Problem Noted Date Diagnosed Date Resolved Date Nausea 06/07/2015 06/07/[address] scan 06/07/2015 1 08/08/2014 Essential hypertension, malignant 03/20/2016 documented as of this encounter (statuses as of 07/06/2023) [address] History of Past illness Narrative* Problem Noted Date Diagnosed Date Resolved Date Nausea 06/07/2015 06/07/[address] scan 06/07/2015 1 08/08/2014 Essential hypertension, malignant 03/20/2016 documented as of this encounter (statuses as of 07/18/2023) [address]2015 History of Past illness Narrative* Problem Noted Date Diagnosed Date Resolved Date Nausea 06/07/2015 06/07/[address] scan 06/07/2015 1 08/08/2014 Essential hypertension, malignant 03/20/2016 documented as of this encounter (statuses as of 08/14/2023) [address]2015 History of Past illness Narrative* Problem Noted Date Diagnosed Date Resolved Date Nausea 06/07/2015 06/07/[address] scan 06/07/2015 1 08/08/2014 Essential hypertension, malignant 03/20/2016 documented as of this encounter (statuses as of 08/15/2023) [address]2015 History of Past illness Narrative* Problem Noted Date Diagnosed Date Resolved Date Nausea 06/07/2015 06/07/[address] scan 06/07/2015 1 08/08/2014 Essential hypertension, malignant 03/20/2016 documented as of this encounter (statuses as of 08/15/2023) [address]2015 History of Past illness Narrative* Problem Noted Date Diagnosed Date Resolved Date Nausea 06/07/2015 06/07/[address] scan 06/07/2015 1 08/08/2014 Essential hypertension, malignant 03/20/2016 documented as of this encounter (statuses as of 08/22/2023) [facility] of Past illness Narrative* Problem Noted Date Diagnosed Date Resolved Date Nausea 06/07/2015 06/07/[address] scan 06/07/2015 1 08/08/2014 Essential hypertension, malignant 03/20/2016 documented as of this encounter (statuses as of 09/18/2023) [facility] Note Date/Time October 06, 2024 4:3 3pm [facility] Medical Records Department [address] [place] [address] Anesthesia Postop Eval II 10/06/24 1606 MR#: [id number] Acct: [id number] Name: ROSEANNA JONES Rep #:[id number] : 1960 64 From: Chidi Bui MD PCP: Dr. Reed Vazquez MD Status:REG S DC Y Race: C Location: [place] [address] Anesthesia Postop Eval I Sum Postop Eval Completion status Anesthesia document: Postop Eval 1 completed: Yes Anesthesia Postop Eval I Summary Anesthesia Postop Eval I Summary: Anesthesia Postop Eval I: Assessment Summary Airway patent Yes 10/06/24 15:34 [email or web address] Spontaneous unlabored Yes 10/06/24 15:34 [email or web address] respirations Mental status Awake,Calm 10/06/24 15:34 [email or web address] nausea No 10/06/24 15:34 [email or web address] Vomiting No 10/06/24 15:34 [email or web address] Anesthesia Postop Eval I: Fluid Summary Crystalloid volume administer 600 10/06/24 15:34 [email or web address] (ml) Colloids volume administered ( ml) Blood Product volume administered (ml) Total IV fluid infused 600 10/06/24 15:34 [email or web address] Anesthesia Postop Eval I: Summary Notes Anesthesia Complication No 10/06/24 15:34 [email or web address] Anesthesia Complication Comment: Post-operative progress note Anesthesia: Postop Eval II Evaluation Mental status: Awake Pain Level: 0 nausea: No Vomiting: No 10/06/24 1606 <Electronically signed by Chidi Bui MD > Date _ Chidi Bui MD Cosigner Signature: Date CC: ~ Signed [facility] Work Phone: Evaluation noteNo assessment information available [facility] Work Phone: evaluation note* Diagnosis Encounter for long-term (current) use of medications- Primary Encounter for long-term (current) use of other medications [facility] Diagnosis Onset Date Resolution Status Breast mass, right acute [facility] Work Phone: Evaluation note* Diagnosis Lumbar radiculopathy- Primary Thoracic or lumbosacral neuritis or radiculitis, unspecified Lumbar post-laminectomy syndrome Postlaminectomy syndrome, lumbar region Neck pain Cervicalgia Chronic pain syndrome Encounter for long-term (current) use of medications Encounter for long-term (current) use of other medications [facility] syndrome- Primary [facility] Diagnosis Parkinson disease (HCC)- Primary Paralysis agitans Cerebrovascular accident (CVA) due to other mechanism (HCC) [facility] Chronic pain syndrome- Primary Encounter for long-term (current) use of medications Encounter for long-term (current) use of other medications Lumbar radiculopathy Thoracic or lumbosacral neuritis or radiculitis, unspecified Postlaminectomy syndrome, lumbar region Cervicalgia [facility] Encounter for long-term (current) use of high-risk medication- Primary Encounter for long-term (current) use of other medications [facility] Diagnosis Chronic pain syndrome- Primary Chronic pain disorder Chronic pain syndrome Lumbar radiculopathy Thoracic or lumbosacral neuritis or radiculitis, unspecified Lumbar post-laminectomy syndrome Postlaminectomy syndrome, lumbar region Encounter for long-term (current) use of medications Encounter for long-term (current) use of other medications documented in this encounter [facility]* Diagnosis Chronic pain syndrome- Primary Chronic pain disorder Chronic pain syndrome Lumbar radiculopathy Thoracic or lumbosacral neuritis or radiculitis, unspecified Lumbar post-laminectomy syndrome Postlaminectomy syndrome, lumbar region Cervicalgia Postlaminectomy syndrome, lumbar region Encounter for long-term (current) use of high-risk medication Encounter for long-term (current) use of other medications Encounter for long-term (current) use of medications Encounter for long-term (current) use of other medications Neck pain Cervicalgia documented in this encounter [facility] note* Diagnosis Encounter for long-term (current) use of medications Encounter for long-term (current) use of other medications documented in this encounter [facility] note* Diagnosis Encounter for long-term (current) use of medications- Primary Encounter for long-term (current) use of other medications Lumbar radiculopathy Thoracic or lumbosacral neuritis or radiculitis, unspecified Encounter for long-term (current) use of high-risk medication Encounter for long-term (current) use of other medications Postlaminectomy syndrome, lumbar region Cervicalgia Lumbar post-laminectomy syndrome Postlaminectomy syndrome, lumbar region Other chronic pain documented in this encounter [facility] note* Diagnosis Encounter for long-term (current) use of medications- Primary Encounter for long-term (current) use of other medications Lumbar radiculopathy Thoracic or lumbosacral neuritis or radiculitis, unspecified Encounter for long-term (current) use of high-risk medication Encounter for long-term (current) use of other medications Postlaminectomy syndrome, lumbar region Cervicalgia Neck pain Cervicalgia Other chronic pain Lumbar post-laminectomy syndrome Postlaminectomy syndrome, lumbar region documented in this encounter [facility] note* Diagnosis Encounter for long-term (current) use of medications- Primary Encounter for long-term (current) use of other medications Lumbar radiculopathy Thoracic or lumbosacral neuritis or radiculitis, unspecified Encounter for long-term (current) use of high-risk medication Encounter for long-term (current) use of other medications Postlaminectomy syndrome, lumbar region Lumbar post-laminectomy syndrome Postlaminectomy syndrome, lumbar region Other chronic pain Neck pain Cervicalgia Cervicalgia [facility] Diagnosis Encounter for long-term (current) use of medications- Primary Encounter for long-term (current) use of other medications Lumbar radiculopathy Thoracic or lumbosacral neuritis or radiculitis, unspecified Encounter for long-term (current) use of high-risk medication Encounter for long-term (current) use of other medications Postlaminectomy syndrome, lumbar region Cervicalgia Neck pain Cervicalgia Other chronic pain Lumbar post-laminectomy syndrome Postlaminectomy syndrome, lumbar region [facility] Diagnosis Encounter for long-term (current) use of medications- Primary Encounter for long-term (current) use of other medications Opioid dependence, continuous (HCC) Opioid type dependence, continuous Lumbar radiculopathy Thoracic or lumbosacral neuritis or radiculitis, unspecified Lumbar post-laminectomy syndrome Postlaminectomy syndrome, lumbar region Encounter for long-term (current) use of high-risk medication Encounter for long-term (current) use of other medications Postlaminectomy syndrome, lumbar region Cervicalgia Neck pain Cervicalgia Other chronic pain [facility] Diagnosis High risk medication use- Primary Encounter for long-term (current) use of other medications Opioid dependence, continuous (HCC) Opioid type dependence, continuous Encounter for long-term (current) use of medications Encounter for long-term (current) use of other medications Lumbar radiculopathy Thoracic or lumbosacral neuritis or radiculitis, unspecified Cervicalgia Postlaminectomy syndrome, lumbar region Encounter for long-term (current) use of high-risk medication Encounter for long-term (current) use of other medications Lumbar post-laminectomy syndrome Postlaminectomy syndrome, lumbar region Neck pain Cervicalgia Other chronic pain documented in this encounter [facility] note* Diagnosis Postlaminectomy syndrome, lumbar region- Primary High risk medication use Encounter for long-term (current) use of other medications Intentional overdose of drug in tablet form (HCC) Opioid dependence, continuous (HCC) Opioid type dependence, continuous Encounter for long-term (current) use of medications Encounter for long-term (current) use of other medications Lumbar radiculopathy Thoracic or lumbosacral neuritis or radiculitis, unspecified Cervicalgia Encounter for long-term (current) use of high-risk medication Encounter for long-term (current) use of other medications Lumbar post-laminectomy syndrome Postlaminectomy syndrome, lumbar region Neck pain Cervicalgia Other chronic pain Chronic pain syndrome Myofascial pain syndrome Mylagia and myositis, unspecified Radiculopathy of lumbar region Thoracic or lumbosacral neuritis or radiculitis, unspecified Rheumatoid arthritis involving multiple sites, unspecified whether rheumatoid factor present ([facility]) documented in this encounter [facility] note* Diagnosis Encounter for long-term (current) use of medications Encounter for long-term (current) use of other medications Chronic pain syndrome Myofascial pain syndrome Mylagia and myositis, unspecified documented in this encounter [facility] note* Diagnosis Encounter for long-term (current) use of medications- Primary Encounter for long-term (current) use of other medications Myofascial pain syndrome Mylagia and myositis, unspecified High risk medication use Encounter for long-term (current) use of other medications Cervicalgia Lumbar radiculopathy Thoracic or lumbosacral neuritis or radiculitis, unspecified Lumbar post-laminectomy syndrome Postlaminectomy syndrome, lumbar region Opioid dependence, continuous (HCC) Opioid type dependence, continuous Encounter for long-term (current) use of high-risk medication Encounter for long-term (current) use of other medications Postlaminectomy syndrome, lumbar region Chronic pain syndrome documented in this encounter [facility] note* Diagnosis Encounter for long-term (current) use of medications- Primary Encounter for long-term (current) use of other medications High risk medication use Encounter for long-term (current) use of other medications Myofascial pain syndrome Mylagia and myositis, unspecified Encounter for long-term (current) use of high-risk medication Encounter for long-term (current) use of other medications Postlaminectomy syndrome, lumbar region Cervicalgia Lumbar radiculopathy Thoracic or lumbosacral neuritis or radiculitis, unspecified Chronic pain syndrome documented in this encounter [facility]* Diagnosis Radiculopathy of lumbar region Thoracic or lumbosacral neuritis or radiculitis, unspecified documented in this encounter [facility]* Diagnosis Encounter for long-term (current) use of medications- Primary Encounter for long-term (current) use of other medications Myofascial pain syndrome Mylagia and myositis, unspecified High risk medication use Encounter for long-term (current) use of other medications Postlaminectomy syndrome, lumbar region Cervicalgia Lumbar radiculopathy Thoracic or lumbosacral neuritis or radiculitis, unspecified Encounter for long-term (current) use of high-risk medication Encounter for long-term (current) use of other medications Lumbar post-laminectomy syndrome Postlaminectomy syndrome, lumbar region Chronic pain syndrome documented in this encounter [facility] note* Diagnosis Encounter for long-term (current) use of medications- Primary Encounter for long-term (current) use of other medications Myofascial pain syndrome Mylagia and myositis, unspecified High risk medication use Encounter for long-term (current) use of other medications Postlaminectomy syndrome, lumbar region Cervicalgia Lumbar radiculopathy Thoracic or lumbosacral neuritis or radiculitis, unspecified Encounter for long-term (current) use of high-risk medication Encounter for long-term (current) use of other medications Lumbar post-laminectomy syndrome Postlaminectomy syndrome, lumbar region Chronic pain syndrome documented in this encounter [facility] note* Diagnosis High risk medication use- Primary Encounter for long-term (current) use of other medications documented in this encounter [facility]* Diagnosis High risk medication use- Primary Encounter for long-term (current) use of other medications Opioid dependence, continuous (HCC) Opioid type dependence, continuous Obesity, Class I, BMI 30-34.9 Obesity, unspecified Myofascial pain syndrome Mylagia and myositis, unspecified Encounter for long-term (current) use of medications Encounter for long-term (current) use of other medications Postlaminectomy syndrome, lumbar region Lumbar radiculopathy Thoracic or lumbosacral neuritis or radiculitis, unspecified Encounter for long-term (current) use of high-risk medication Encounter for long-term (current) use of other medications Chronic pain syndrome [facility] Diagnosis High risk medication use- Primary Encounter for long-term (current) use of other medications Opioid dependence, continuous (HCC) Opioid type dependence, continuous Myofascial pain syndrome Mylagia and myositis, unspecified Encounter for long-term (current) use of medications Encounter for long-term (current) use of other medications Postlaminectomy syndrome, lumbar region Encounter for long-term (current) use of high-risk medication Encounter for long-term (current) use of other medications Obesity, Class I, BMI 30-34.9 Obesity, unspecified Cervicalgia Lumbar radiculopathy Thoracic or lumbosacral neuritis or radiculitis, unspecified Chronic pain syndrome documented in this encounter [facility] note* Diagnosis High risk medication use- Primary Encounter for long-term (current) use of other medications Encounter for long-term (current) use of medications Encounter for long-term (current) use of other medications Opioid dependence, continuous (HCC) Opioid type dependence, continuous Postlaminectomy syndrome, lumbar region Lumbar radiculopathy Thoracic or lumbosacral neuritis or radiculitis, unspecified Encounter for long-term (current) use of high-risk medication Encounter for long-term (current) use of other medications Myofascial pain syndrome Mylagia and myositis, unspecified Obesity, Class I, BMI 30-34.9 Obesity, unspecified Chronic pain syndrome Encounter for long-term opiate analgesic use Encounter for long-term (current) use of other medications [facility] Diagnosis Myofascial pain syndrome Mylagia and myositis, unspecified [facility] Diagnosis Myofascial pain syndrome- Primary Mylagia and myositis, unspecified High risk medication use Encounter for long-term (current) use of other medications Opioid dependence, continuous (HCC) Opioid type dependence, continuous Encounter for long-term (current) use of medications Encounter for long-term (current) use of other medications Postlaminectomy syndrome, lumbar region Encounter for long-term (current) use of high-risk medication Encounter for long-term (current) use of other medications Encounter for long-term opiate analgesic use Encounter for long-term (current) use of other medications Cervicalgia Lumbar radiculopathy Thoracic or lumbosacral neuritis or radiculitis, unspecified Chronic pain syndrome documented in this encounter [facility] note* Diagnosis Myofascial pain syndrome- Primary Mylagia and myositis, unspecified Encounter for long-term (current) use of medications Encounter for long-term (current) use of other medications Encounter for long-term opiate analgesic use Encounter for long-term (current) use of other medications High risk medication use Encounter for long-term (current) use of other medications Postlaminectomy syndrome, lumbar region Cervicalgia Opioid dependence, continuous (HCC) Opioid type dependence, continuous Encounter for long-term (current) use of high-risk medication Encounter for long-term (current) use of other medications Lumbar radiculopathy Thoracic or lumbosacral neuritis or radiculitis, unspecified Chronic pain syndrome documented in this encounter [facility] note* Diagnosis Myofascial pain syndrome- Primary Mylagia and myositis, unspecified High risk medication use Encounter for long-term (current) use of other medications Opioid dependence, continuous (HCC) Opioid type dependence, continuous Encounter for long-term (current) use of medications Encounter for long-term (current) use of other medications Postlaminectomy syndrome, lumbar region Encounter for long-term (current) use of high-risk medication Encounter for long-term (current) use of other medications Encounter for long-term opiate analgesic use Encounter for long-term (current) use of other medications Cervicalgia Lumbar radiculopathy Thoracic or lumbosacral neuritis or radiculitis, unspecified Chronic pain syndrome documented in this encounter [facility] note* Diagnosis Encounter for long-term opiate analgesic use- Primary Encounter for long-term (current) use of other medications Chronic cervical pain Cervicalgia Myofascial pain syndrome Mylagia and myositis, unspecified Encounter for long-term (current) use of medications Encounter for long-term (current) use of other medications Chronic pain syndrome [facility] Diagnosis Chronic cervical pain Cervicalgia [facility] Diagnosis Encounter for long-term opiate analgesic use- Primary Encounter for long-term (current) use of other medications Myofascial pain syndrome Mylagia and myositis, unspecified Opioid dependence, continuous (HCC) Opioid type dependence, continuous Chronic cervical pain Cervicalgia Encounter for long-term (current) use of medications Encounter for long-term (current) use of other medications Postlaminectomy syndrome, lumbar region Cervicalgia High risk medication use Encounter for long-term (current) use of other medications Encounter for long-term (current) use of high-risk medication Encounter for long-term (current) use of other medications Lumbar radiculopathy Thoracic or lumbosacral neuritis or radiculitis, unspecified Chronic pain syndrome documented [facility] this [facility]No reason for referral information [facility] Work Phone: Reason for visit Narrative* Diagnostic Procedure Only (Routine) - Closed Specialty Diagnoses / Procedures Referred By Contac t Referred To Contact XR IMAGING Diagnoses Chronic cervical pain Procedures XR CERV OTHER 4V AP/LAT/OBL RADEX SPINE CERVICAL 4 OR 5 VIEWS Katty Steiner, STAFF CYTOTECHNOLOGIST.MACHINE SPECIALIST [address] [place] [address] Phone: tel: fax: [place] [phone] Referral ID Status Reason Start Date Expiration Date V isits Requested Visits Authorized [id number] Closed Auto-Generate d Referral 09/09/2024 10/09/2025 1 1 [facility] Summary Purpose Family History No Family History Records Found Relationship Condition Age at Onset Recorded Date/T jabier brother Cardiac disease Unknown mother Osteoarthritis Unknown Relationship Condition Age at Onset Recorded Date/T jabier brother Cardiac disease Unknown mother Osteoarthritis Unknown Coronary artery disease Unknown Hypertension Unknown Diabetes mellitus Unknown Malignant neoplasm of breast Unknown father Cerebrovascular accident (CVA) Unknown Malignant neoplasm of colon Unknown Advance Directives No Advanced Directives Records Found Advance Directive Response Recorded Date/ Time Advance Directives No April 07, 2015 11:38pm Living Will No April 24 9:32pm Power of Steam Conditioner Filling Yes April 24, 2021 9:32pm Advance Directive Response Recorded Date/ Time Living Will No October 04, 2024 10:15am Do you have a Healthcare Power of Steam Conditioner Filling? No October 04, 2024 10:15am Advance Directives No April 07, 2015 11:38pm Reason for Referral Status Reason Specialty Diagnoses / Procedures Referred By Contact Referred To Contact Closed Rheumatology Diagnoses Positive CARLOS (antinuclear antibody) Annalise Randhawa MD [address] [place] [address] Specialty Diagnoses / Procedures Referred By Contac t Referred To Contact MR IMAGING Diagnoses Radiculopathy of lumbar region Procedures MRI LUMBAR SPINE WO/W IVCON MRI SPINAL CANAL LUMBAR W/O & W/CONTR Joyce Schroeder, DO [address] [place] [address] [place] [address] Referral ID Status Reason Start Date Expiration Date Visits Requested Visits Authorized [id number] Pending Review Auto-Generat ed Referral 02/11/2023 03/12/2024 1 1 Specialty Diagnoses / Procedures Referred By Contac t Referred To Contact Rheumatology Diagnoses Myofascial pain syndrome Postlaminectomy syndrome, lumbar region Cervicalgia Lumbar radiculopathy Procedures CONSULT TO RHEUM/IMMUN DISEASE OFFICE/OUTPATIENT [facility] 60-74 MINUTES Katty Steiner STAFF CYTOTECHNOLOGIST.MACHINE SPECIALIST [address] [place] [address] Referral ID Status Reason Start Date Expiration Date Visits Requested Visits Authorized [id number] Pending Review PCP Requested Referral 3 04/03/2024 1 1 Specialty Diagnoses / Procedures Referred By Contac t Referred To Contact [facility] Diagnoses Postlaminectomy syndrome, lumbar region Lumbar radiculopathy Procedures CONSULT TO [facility] OFFICE/OUTPATIENT [facility] 60-74 MINUTES Katty Steiner, STAFF CYTOTECHNOLOGIST.MACHINE SPECIALIST [address] [place] [address] Referral ID Status Reason Start Date Expiration Date Visits Requested Visits Authorized [id number] Pending Review PCP Requested Referral 3 04/03/2024 1 1 Referral ID Status Reason Start Date Expiration Date V isits Requested Visits Authorized [id number] Closed Auto-Generate d Referral 02/11/2023 03/12/2024 1 1 Assessments Diagnosis Positive CARLOS (antinuclear antibody)- Primary Other and unspecified nonspecific immunological findings Chief Complaint and Reason for Visit Chief Complaint E ORDER Chief Complaint E ORDER BREAST LUMP Chief Complaint E ORDER BREAST LUMP LEFT BRIADS 4 ABN US LT BREAST, RT BREAST MASS Reason for Visit Breast mass, right Chief Complaint EORDER Chief Complaint Admit Date Gastroparesis August 11, 2024 12:37pm Reason for Visit Admit Date Loose stools August 11, 2024 12:37pm Nausea August 11, 2024 12:37pm RUQ pain August 11, 2024 12:37pm Loose stools October 06, 2024 1:5 6pm Nausea October 06, 2024 1:5 6pm RUQ pain October 06, 2024 1:5 6pm Additional Source Comments INFORMATION SOURCE (unrecogn ized section and content) DATE CREATED AUTHOR 03/14/2018 [facility] ([place]) DATE CREATED AUTHOR AUTHOR'S ORGANIZ ATION 08/21/2019 [facility] [place] DATE CREATED AUTHOR AUTHOR'S ORGANIZ ATION 04/12/2023 [facility] DATE CREATED AUTHOR AUTHOR'S ORGANIZ ATION 10/27/2023 [facility] DATE CREATED AUTHOR AUTHOR'S ORGANIZ ATION 11/25/[address] [facility] DATE CREATED AUTHOR AUTHOR'S ORGANIZ ATION 11/28/2024 [facility] Goals (unrecognized section and content) Goals may be documented in a n alternate sectionGoals may be documented in an alternate sectionGoals may be documented in an alternate sectionGoals may be documented in an alternate sectionGoals may be documented in an alternate sectionGoals may be documented in an alternate section Source Comments (unrecognize d section and content) In the event this informatio n is protected by the Federal Confidentiality of Alcohol and Drug Abuse Patient Records regulations: The Federal rules restrict any use of the information to criminally investigate or prosecute any alcohol or drug abuse patient.[facility] the event this information is protected by the Federal Confidentiality of Alcohol and Drug Abuse Patient Records regulations: The Federal rules restrict any use of the information to criminally investigate or prosecute any alcohol or drug abuse patient.[facility] CenterIn the event this information is protected by the Federal Confidentiality of Alcohol and Drug Abuse Patient Records regulations: The Federal rules restrict any use of the information to criminally investigate or prosecute any alcohol or drug abuse patient.[facility] CenterIn the event this information is protected by the Federal Confidentiality of Alcohol and Drug Abuse Patient Records regulations: The Federal rules restrict any use of the information to criminally investigate or prosecute any alcohol or drug abuse patient.[facility] CenterIn the event this information is protected by the Federal Confidentiality of Alcohol and Drug Abuse Patient Records regulations: The Federal rules restrict any use of the information to criminally investigate or prosecute any alcohol or drug abuse patient.[facility] the event this information is protected by the Federal Confidentiality of Alcohol and Drug Abuse Patient Records regulations: The Federal rules restrict any use of the information to criminally investigate or prosecute any alcohol or drug abuse patient.[facility] the event this information is protected by the Federal Confidentiality of Alcohol and Drug Abuse Patient Records regulations: The Federal rules restrict any use of the information to criminally investigate or prosecute any alcohol or drug abuse patient.[facility] CenterIn the event this information is protected by the Federal Confidentiality of Alcohol and Drug Abuse Patient Records regulations: The Federal rules restrict any use of the information to criminally investigate or prosecute any alcohol or drug abuse patient.[facility] CenterIn the event this information is protected by the Federal Confidentiality of Alcohol and Drug Abuse Patient Records regulations: The Federal rules restrict any use of the information to criminally investigate or prosecute any alcohol or drug abuse patient.[facility] CenterIn the event this information is protected by the Federal Confidentiality of Alcohol and Drug Abuse Patient Records regulations: The Federal rules restrict any use of the information to criminally investigate or prosecute any alcohol or drug abuse patient.[facility] CenterIn the event this information is protected by the Federal Confidentiality of Alcohol and Drug Abuse Patient Records regulations: The Federal rules restrict any use of the information to criminally investigate or prosecute any alcohol or drug abuse patient.[facility] CenterIn the event this information is protected by the Federal Confidentiality of Alcohol and Drug Abuse Patient Records regulations: The Federal rules restrict any use of the information to criminally investigate or prosecute any alcohol or drug abuse patient.[facility] CenterIn the event this information is protected by the Federal Confidentiality of Alcohol and Drug Abuse Patient Records regulations: The Federal rules restrict any use of the information to criminally investigate or prosecute any alcohol or drug abuse patient.[facility] CenterIn the event this information is protected by the Federal Confidentiality of Alcohol and Drug Abuse Patient Records regulations: The Federal rules restrict any use of the information to criminally investigate or prosecute any alcohol or drug abuse patient.[facility] CenterIn the event this information is protected by the Federal Confidentiality of Alcohol and Drug Abuse Patient Records regulations: The Federal rules restrict any use of the information to criminally investigate or prosecute any alcohol or drug abuse patient.[facility] CenterIn the event this information is protected by the Federal Confidentiality of Alcohol and Drug Abuse Patient Records regulations: The Federal rules restrict any use of the information to criminally investigate or prosecute any alcohol or drug abuse patient.[facility] CenterIn the event this information is protected by the Federal Confidentiality of Alcohol and Drug Abuse Patient Records regulations: The Federal rules restrict any use of the information to criminally investigate or prosecute any alcohol or drug abuse patient.[facility] CenterIn the event this information is protected by the Federal Confidentiality of Alcohol and Drug Abuse Patient Records regulations: The Federal rules restrict any use of the information to criminally investigate or prosecute any alcohol or drug abuse patient.[facility] CenterIn the event this information is protected by the Federal Confidentiality of Alcohol and Drug Abuse Patient Records regulations: The Federal rules restrict any use of the information to criminally investigate or prosecute any alcohol or drug abuse patient.[facility] CenterIn the event this information is protected by the Federal Confidentiality of Alcohol and Drug Abuse Patient Records regulations: The Federal rules restrict any use of the information to criminally investigate or prosecute any alcohol or drug abuse patient.[facility] CenterIn the event this information is protected by the Federal Confidentiality of Alcohol and Drug Abuse Patient Records regulations: The Federal rules restrict any use of the information to criminally investigate or prosecute any alcohol or drug abuse patient.[facility] CenterIn the event this information is protected by the Federal Confidentiality of Alcohol and Drug Abuse Patient Records regulations: The Federal rules restrict any use of the information to criminally investigate or prosecute any alcohol or drug abuse patient.[facility] CenterIn the event this information is protected by the Federal Confidentiality of Alcohol and Drug Abuse Patient Records regulations: The Federal rules restrict any use of the information to criminally investigate or prosecute any alcohol or drug abuse patient.[facility] CenterIn the event this information is protected by the Federal Confidentiality of Alcohol and Drug Abuse Patient Records regulations: The Federal rules restrict any use of the information to criminally investigate or prosecute any alcohol or drug abuse patient.[facility] CenterIn the event this information is protected by the Federal Confidentiality of Alcohol and Drug Abuse Patient Records regulations: The Federal rules restrict any use of the information to criminally investigate or prosecute any alcohol or drug abuse patient.[facility] CenterIn the event this information is protected by the Federal Confidentiality of Alcohol and Drug Abuse Patient Records regulations: The Federal rules restrict any use of the information to criminally investigate or prosecute any alcohol or drug abuse patient.[facility] CenterIn the event this information is protected by the Federal Confidentiality of Alcohol and Drug Abuse Patient Records regulations: The Federal rules restrict any use of the information to criminally investigate or prosecute any alcohol or drug abuse patient.[facility] CenterIn the event this information is protected by the Federal Confidentiality of Alcohol and Drug Abuse Patient Records regulations: The Federal rules restrict any use of the information to criminally investigate or prosecute any alcohol or drug abuse patient.[facility] CenterIn the event this information is protected by the Federal Confidentiality of Alcohol and Drug Abuse Patient Records regulations: The Federal rules restrict any use of the information to criminally investigate or prosecute any alcohol or drug abuse patient.[facility] CenterIn the event this information is protected by the Federal Confidentiality of Alcohol and Drug Abuse Patient Records regulations: The Federal rules restrict any use of the information to criminally investigate or prosecute any alcohol or drug abuse patient.[facility] CenterIn the event this information is protected by the Federal Confidentiality of Alcohol and Drug Abuse Patient Records regulations: The Federal rules restrict any use of the information to criminally investigate or prosecute any alcohol or drug abuse patient.[facility] CenterIn the event this information is protected by the Federal Confidentiality of Alcohol and Drug Abuse Patient Records regulations: The Federal rules restrict any use of the information to criminally investigate or prosecute any alcohol or drug abuse patient.[facility] CenterIn the event this information is protected by the Federal Confidentiality of Alcohol and Drug Abuse Patient Records regulations: The Federal rules restrict any use of the information to criminally investigate or prosecute any alcohol or drug abuse patient.[facility] CenterIn the event this information is protected by the Federal Confidentiality of Alcohol and Drug Abuse Patient Records regulations: The Federal rules restrict any use of the information to criminally investigate or prosecute any alcohol or drug abuse patient.[facility] CenterIn the event this information is protected by the Federal Confidentiality of Alcohol and Drug Abuse Patient Records regulations: The Federal rules restrict any use of the information to criminally investigate or prosecute any alcohol or drug abuse patient.[facility] CenterIn the event this information is protected by the Federal Confidentiality of Alcohol and Drug Abuse Patient Records regulations: The Federal rules restrict any use of the information to criminally investigate or prosecute any alcohol or drug abuse patient.[facility] CenterIn the event this information is protected by the Federal Confidentiality of Alcohol and Drug Abuse Patient Records regulations: The Federal rules restrict any use of the information to criminally investigate or prosecute any alcohol or drug abuse patient.[facility] CenterIn the event this information is protected by the Federal Confidentiality of Alcohol and Drug Abuse Patient Records regulations: The Federal rules restrict any use of the information to criminally investigate or prosecute any alcohol or drug abuse patient.[facility] CenterIn the event this information is protected by the Federal Confidentiality of Alcohol and Drug Abuse Patient Records regulations: The Federal rules restrict any use of the information to criminally investigate or prosecute any alcohol or drug abuse patient.[facility] CenterIn the event this information is protected by the Federal Confidentiality of Alcohol and Drug Abuse Patient Records regulations: The Federal rules restrict any use of the information to criminally investigate or prosecute any alcohol or drug abuse patient.[facility] CenterIn the event this information is protected by the Federal Confidentiality of Alcohol and Drug Abuse Patient Records regulations: The Federal rules restrict any use of the information to criminally investigate or prosecute any alcohol or drug abuse patient.[facility] CenterIn the event this information is protected by the Federal Confidentiality of Alcohol and Drug Abuse Patient Records regulations: The Federal rules restrict any use of the information to criminally investigate or prosecute any alcohol or drug abuse patient.[facility] CenterIn the event this information is protected by the Federal Confidentiality of Alcohol and Drug Abuse Patient Records regulations: The Federal rules restrict any use of the information to criminally investigate or prosecute any alcohol or drug abuse patient.[facility] CenterIn the event this information is protected by the Federal Confidentiality of Alcohol and Drug Abuse Patient Records regulations: The Federal rules restrict any use of the information to criminally investigate or prosecute any alcohol or drug abuse patient.[facility] CenterIn the event this information is protected by the Federal Confidentiality of Alcohol and Drug Abuse Patient Records regulations: The Federal rules restrict any use of the information to criminally investigate or prosecute any alcohol or drug abuse patient.[facility] CenterIn the event this information is protected by the Federal Confidentiality of Alcohol and Drug Abuse Patient Records regulations: The Federal rules restrict any use of the information to criminally investigate or prosecute any alcohol or drug abuse patient.[facility] CenterIn the event this information is protected by the Federal Confidentiality of Alcohol and Drug Abuse Patient Records regulations: The Federal rules restrict any use of the information to criminally investigate or prosecute any alcohol or drug abuse patient.[facility] CenterIn the event this information is protected by the Federal Confidentiality of Alcohol and Drug Abuse Patient Records regulations: The Federal rules restrict any use of the information to criminally investigate or prosecute any alcohol or drug abuse patient.[facility] CenterIn the event this information is protected by the Federal Confidentiality of Alcohol and Drug Abuse Patient Records regulations: The Federal rules restrict any use of the information to criminally investigate or prosecute any alcohol or drug abuse patient.[facility] CenterIn the event this information is protected by the Federal Confidentiality of Alcohol and Drug Abuse Patient Records regulations: The Federal rules restrict any use of the information to criminally investigate or prosecute any alcohol or drug abuse patient.[facility] CenterIn the event this information is protected by the Federal Confidentiality of Alcohol and Drug Abuse Patient Records regulations: The Federal rules restrict any use of the information to criminally investigate or prosecute any alcohol or drug abuse patient.[facility] CenterIn the event this information is protected by the Federal Confidentiality of Alcohol and Drug Abuse Patient Records regulations: The Federal rules restrict any use of the information to criminally investigate or prosecute any alcohol or drug abuse patient.[facility] CenterIn the event this information is protected by the Federal Confidentiality of Alcohol and Drug Abuse Patient Records regulations: The Federal rules restrict any use of the information to criminally investigate or prosecute any alcohol or drug abuse patient.[facility] CenterIn the event this information is protected by the Federal Confidentiality of Alcohol and Drug Abuse Patient Records regulations: The Federal rules restrict any use of the information to criminally investigate or prosecute any alcohol or drug abuse patient.[facility] CenterIn the event this information is protected by the Federal Confidentiality of Alcohol and Drug Abuse Patient Records regulations: The Federal rules restrict any use of the information to criminally investigate or prosecute any alcohol or drug abuse patient.[facility] CenterIn the event this information is protected by the Federal Confidentiality of Alcohol and Drug Abuse Patient Records regulations: The Federal rules restrict any use of the information to criminally investigate or prosecute any alcohol or drug abuse patient.[facility] CenterIn the event this information is protected by the Federal Confidentiality of Alcohol and Drug Abuse Patient Records regulations: The Federal rules restrict any use of the information to criminally investigate or prosecute any alcohol or drug abuse patient.[facility] CenterIn the event this information is protected by the Federal Confidentiality of Alcohol and Drug Abuse Patient Records regulations: The Federal rules restrict any use of the information to criminally investigate or prosecute any alcohol or drug abuse patient.[facility] CenterIn the event this information is protected by the Federal Confidentiality of Alcohol and Drug Abuse Patient Records regulations: The Federal rules restrict any use of the information to criminally investigate or prosecute any alcohol or drug abuse patient.[facility] CenterIn the event this information is protected by the Federal Confidentiality of Alcohol and Drug Abuse Patient Records regulations: The Federal rules restrict any use of the information to criminally investigate or prosecute any alcohol or drug abuse patient.[facility] CenterIn the event this information is protected by the Federal Confidentiality of Alcohol and Drug Abuse Patient Records regulations: The Federal rules restrict any use of the information to criminally investigate or prosecute any alcohol or drug abuse patient.[facility] CenterIn the event this information is protected by the Federal Confidentiality of Alcohol and Drug Abuse Patient Records regulations: The Federal rules restrict any use of the information to criminally investigate or prosecute any alcohol or drug abuse patient.[facility] CenterIn the event this information is protected by the Federal Confidentiality of Alcohol and Drug Abuse Patient Records regulations: The Federal rules restrict any use of the information to criminally investigate or prosecute any alcohol or drug abuse patient.[facility] CenterIn the event this information is protected by the Federal Confidentiality of Alcohol and Drug Abuse Patient Records regulations: The Federal rules restrict any use of the information to criminally investigate or prosecute any alcohol or drug abuse patient.[facility] CenterIn the event this information is protected by the Federal Confidentiality of Alcohol and Drug Abuse Patient Records regulations: The Federal rules restrict any use of the information to criminally investigate or prosecute any alcohol or drug abuse patient.[facility] CenterIn the event this information is protected by the Federal Confidentiality of Alcohol and Drug Abuse Patient Records regulations: The Federal rules restrict any use of the information to criminally investigate or prosecute any alcohol or drug abuse patient.[facility] CenterIn the event this information is protected by the Federal Confidentiality of Alcohol and Drug Abuse Patient Records regulations: The Federal rules restrict any use of the information to criminally investigate or prosecute any alcohol or drug abuse patient.[facility] CenterIn the event this information is protected by the Federal Confidentiality of Alcohol and Drug Abuse Patient Records regulations: The Federal rules restrict any use of the information to criminally investigate or prosecute any alcohol or drug abuse patient.[facility] CenterIn the event this information is protected by the Federal Confidentiality of Alcohol and Drug Abuse Patient Records regulations: The Federal rules restrict any use of the information to criminally investigate or prosecute any alcohol or drug abuse patient.[facility] CenterIn the event this information is protected by the Federal Confidentiality of Alcohol and Drug Abuse Patient Records regulations: The Federal rules restrict any use of the information to criminally investigate or prosecute any alcohol or drug abuse patient.[facility] CenterIn the event this information is protected by the Federal Confidentiality of Alcohol and Drug Abuse Patient Records regulations: The Federal rules restrict any use of the information to criminally investigate or prosecute any alcohol or drug abuse patient.[facility] Care Teams (unrecognized sec tion and content) Paper Steamer Relationship Specialty Start Date End Date Annalise Randhawa MD [address] [place] [address] PCP - General Family Practice 05/15/16 Paper Steamer Relationship Specialty Start Date End Date Annalise Randhawa MD [address] [place] [address] PCP - General Family Practice 05/15/16 Paper Steamer Relationship Specialty Start Date End Date Annalise Randhawa MD [address] [place] [address] PCP - General Family Practice 05/15/16 Paper Steamer Relationship Specialty Start Date End Date Annalise Randhawa MD [address] [place] [address] PCP - General Family Practice 05/15/16 Paper Steamer Relationship Specialty Start Date End Date Annalise Randhawa MD [address] [facility] [place] [address] PCP - General Family Practice 05/15/16 Paper Steamer Relationship Specialty Start Date End Date Annalise Randhawa MD [address] [facility] [place] [address] PCP - General Family Practice 05/15/16 Paper Steamer Relationship Specialty Start Date End Date Annalise Randhawa MD [address] [facility] [place] [address] PCP - General Family Practice 05/15/16 Paper Steamer Relationship Specialty Start Date End Date Annalise Randhawa MD [address] [facility] [place] [address] PCP - General Family Practice 05/15/16 Paper Steamer Relationship Specialty Start Date End Date Annalise Randhawa MD [address] [facility] [place] [address] PCP - General Family Practice 05/15/16 Paper Steamer Relationship Specialty Start Date End Date Annalise Randhawa MD [address] [facility] [place] [address] PCP - General Family Medicine 05/15/16 Paper Steamer Relationship Specialty Start Date End Date Annalise Randhawa MD [address] [facility] [place] [address] PCP - General Family Medicine 05/15/16 Paper Steamer Relationship Specialty Start Date End Date Annalise Randhawa MD [address] [facility] [place] [address] PCP - General Family Medicine 05/15/16 Paper Steamer Relationship Specialty Start Date End Date Annalise Randhawa MD [address] [facility] [place] [address] PCP - General Family Medicine 05/15/16 Paper Steamer Relationship Specialty Start Date End Date Annalise Randhawa MD [address] [facility] [place] [address] PCP - General Family Medicine 05/15/16 Paper Steamer Relationship Specialty Start Date End Date Annalise Randhawa MD [address] [facility] [place], [place] [address] PCP - General Family Medicine 05/15/16 Paper Steamer Relationship Specialty Start Date End Date Annalise Randhawa MD [address] [facility] [place], [place] [address] PCP - General Family Medicine 05/15/16 Paper Steamer Relationship Specialty Start Date End Date Annalise Randhawa MD [address] [facility] [place], [place] [address] PCP - General Family Medicine 05/15/16 Paper Steamer Relationship Specialty Start Date End Date Annalise Randhawa MD [address] [facility] [place], [place] [id number] PCP - General Family Medicine 05/15/16 Paper Steamer Relationship Specialty Start Date End Date Annalise Randhawa MD [address] [facility], [place] [id number] PCP - General Family Medicine 05/15/16 Team Status: Active Member Role Status Dates Dr. Clemente Randhawa MD Family Provider Active Dr. Clemente Randhawa MD Primary Care Provider Activ e Team Status: Inactive Member Role Status Dates Dr. Clemente Randhawa MD Primary Care Provider, Attending Provider, Referring Provider Active Paper Steamer Relationship Specialty Start Date End Date Annalise Randhawa MD [address] [facility] [place], [place] [address] PCP - General Family Medicine 05/15/16 Paper Steamer Relationship Specialty Start Date End Date Annalise Randhawa MD [address] [facility] [place], [place] [address] PCP - General Family Medicine 05/15/16 Paper Steamer Relationship Specialty Start Date End Date Annalise Randhawa MD [address] [place] [address] PCP - General Family Medicine 05/15/16 Paper Steamer Relationship Specialty Start Date End Date Annalise Randhawa MD [address] [place] [address] PCP - General Family Medicine 05/15/16 Paper Steamer Relationship Specialty Start Date End Date Annalise Randhawa MD [address] [place] [address] PCP - General Family Medicine 05/15/16 Paper Steamer Relationship Specialty Start Date End Date Annalise Randhawa MD [address] [place] [address] PCP - General Family Medicine 05/15/16 Paper Steamer Relationship Specialty Start Date End Date Annalise Randhawa MD [address] [place] [address] PCP - General Family Medicine 05/15/16 Paper Steamer Relationship Specialty Start Date End Date Annalise Randhawa MD [address] [place] [address] PCP - General Family Medicine 05/15/16 Paper Steamer Relationship Specialty Start Date End Date Annalise Randhawa MD [address] [place] [address] PCP - General Family Medicine 05/15/16 Paper Steamer Relationship Specialty Start Date End Date Annalise Randhawa MD [address] [place] [address] PCP - General Family Medicine 05/15/16 Paper Steamer Relationship Specialty Start Date End Date Annalise Randhawa MD [address] [place] [address] PCP - General Family Medicine 05/15/16 Paper Steamer Relationship Specialty Start Date End Date Annalise Randhawa MD [address] [place] [address] PCP - General Family Medicine 05/15/16 Paper Steamer Relationship Specialty Start Date End Date Annalise Randhawa MD [address] [place] [address] PCP - General Family Medicine 05/15/16 Paper Steamer Relationship Specialty Start Date End Date Annalise Randhawa MD [address] [place] [address] PCP - General Family Medicine 05/15/16 Paper Steamer Relationship Specialty Start Date End Date Annalise Randhawa MD [address] [place] [address] PCP - General Family Medicine 05/15/16 Paper Steamer Relationship Specialty Start Date End Date Annalise Randhawa MD [address] [place] [address] PCP - General Family Medicine 05/15/16 Paper Steamer Relationship Specialty Start Date End Date Annalise Randhawa MD [address] [place] [address] PCP - General Family Medicine 05/15/16 Paper Steamer Relationship Specialty Start Date End Date Annalise Randhawa MD [address] [place] [address] PCP - General Family Medicine 05/15/16 Paper Steamer Relationship Specialty Start Date End Date Annalise Randhawa MD [address] [place] [address] PCP - General Family Medicine 05/15/16 Paper Steamer Relationship Specialty Start Date End Date Annalise Randhawa MD [address] [place] [address] PCP - General Family Medicine 05/15/16 Paper Steamer Relationship Specialty Start Date End Date Annalise Randhawa MD [address] [place] [address] PCP - General Family Medicine 05/15/16 Paper Steamer Relationship Specialty Start Date End Date Annalise Randhawa MD [address] [place] [address] PCP - General Family Medicine 05/15/16 Paper Steamer Relationship Specialty Start Date End Date Annalise Randhawa MD [address] [place] [address] PCP - General Family Medicine 05/15/16 Paper Steamer Relationship Specialty Start Date End Date Annalise Randhawa MD [address] [place] [address] PCP - General Family Medicine 05/15/16 Paper Steamer Relationship Specialty Start Date End Date Annalise Randhawa MD [address] [place] [address] PCP - General Family Medicine 05/15/16 Team Status: Active Member Role Status Dates Dr. Reed Vazquez MD Primary Care Provider Active Team Status: Inactive Member Role Status Dates Dr. Reed Vazquez MD Primary Care Provider Active Start: July 08, 2024 End: July 08, 2024 Dr. Reed Vazquez MD Attending Provider Active Start: July 08, 2024 End: July 08, 2024 Dr. Reed Vazquez MD Referring Provider Active Start: July 08, 2024 End: July 08, 2024 Team Status: Inactive Member Role Status Dates Dr. Reed Vazquez MD Primary Care Provider Active Start: July 15, 2024 End: July 15, 2024 Dr. Reed Vazquez MD Attending Provider Active Start: July 15, 2024 End: July 15, 2024 Team Status: Inactive Member Role Status Dates Dr. Reed Vazquez MD Primary Care Provider Active Start: August 11, 2024 End: August 11, 2024 Dr. Reed Vazquez MD Referring Provider Active Start: August 11, 2024 End: August 11, 2024 ARELY Jacinto Attending Provider Active Start: August 11, 2024 End: August 11, 2024 Team Status: Inactive Member Role Status Dates Dr. Reed Vazquez MD Primary Care Provider Active Start: October 06, 2024 End: October 06, 2024 Dr. Reed Vazquez MD Referring Provider Active Start: October 06, 2024 End: October 06, 2024 Dr. Polo Mac DO Attending Provider Active Start: October 06, 2024 End: October 06, 2024 Team Status: Active Member Role Status Dates Dr. Reed Vazquez MD Primary Care Provider Active Start: October 06, 2024 Dr. Reed Vazquez MD Referring Provider Active Start: October 06, 2024 Dr. Polo Mac DO Attending Provider Active Start: October 06, 2024 Dr. Polo Mac DO Other Provider Active St art: October 06, 2024 Paper Steamer Relationship Specialty Start Date End Date Annalise Randhawa MD [address] [place] [address] PCP - General Family Medicine 05/15/16 Paper Steamer Relationship Specialty Start Date End Date Annalise Randhawa MD [address] [place] [address] PCP - General Family Medicine 05/15/16 Reason for Visit (unrecogniz ed section and content) Reason Onset Date Comments Refill Request 12/25/2021 Reason Comments Appointment Reason Comments Pain Reason Comments Follow Up Pain Reason Comments Call pt Reason Comments Pt submitted UDS Reason Onset Date Comments Refill Request 05/22/2022 Reason Onset Date Comments Refill Request 06/05/2022 Reason Onset Date Comments Refill Request 06/21/2022 Reason Comments virtual visit precharting Reason Comments Future Appointment Reason Comments Back Pain Leg Pain Reason Onset Date Comments Refill Request 03/10/2023 Reason Comments Pain Reason Comments follow up on med records Reason Comments follow up on pt records Reason Comments Received Outside Medical Records Reason Comments rheum order faxed Reason Comments Orders Referral faxed to dr goncalves Specialty Diagnoses / Procedures Referred By Contac t Referred To Contact MR IMAGING Diagnoses Radiculopathy of lumbar region Procedures MRI LUMBAR SPINE WO/W IVCON MRI SPINAL CANAL LUMBAR W/O & W/CONTR MATRL Joyce Marley H, DO [address] [place] [address] [place] [address] Referral ID Status Reason Start Date Expiration Date V isits Requested Visits Authorized [id number] Closed Auto-Generate d Referral 02/11/2023 03/12/2024 1 1 Reason Comments [facility] - Other Reason Comments follow up on referral Reason Comments Orders Reason Comments virtual visit preharting Reason Comments Patient Question Reason Comments Back Pain Low back pain Reason Onset Date Comments Refill Request 01/19/2024 Reason Comments Back Pain Low back pain FOR RECORDS PERTAINING TO PATIENTS WHO ARE OR HAVE BEEN ENROLLED IN A CHEMICAL DEPENDENCY/SUBSTANCEABUSE PROGRAM, SOME INFORMATION MAY BE OMITTED. This clinical summary was aggregated from multiple sources. Caution should be exercised in using it in the provision of clinical care. This summary normalizes information from multiple sources, and as a consequence, information in this document may materially change the coding, format and clinical context of patient data. In addition, data may be omitted in some cases. CLINICAL DECISIONS SHOULD BE BASED ON THE PRIMARY CLINICAL RECORDS. [facility] [employer] [facility]. provides no warranty or guarantee of the accuracy or completeness of information in this document.
== END | disposition home or self-care (01) ==
LOC: US 09:54
PROVIDERS: PCP Family Medicine; Referring Provider Student in an Organized Health Care Education/Training Program; Visit Provider Student in an Organized Health Care Education/Training Program
DX: I85.00 Esophageal varices without bleeding (principal)
CPT/HCPCS: 76705; 76981

== ENCOUNTER → 2025-01-06 | Outpatient (CLI) | payer MEDICARE, MEDICAID, SELFPAY ==
[2025-01-06 15:38] LABS: Hematocrit 42.4 % (37-47); Hemoglobin 13.6 g/dL (12.0-15.0); Immature Granulocytes Count 0.030 X10^3/uL (0.0-0.0); Mean Corp Hgb Conc 32.1 g/dL (32-36); Mean Corpuscular Volume 94.0 fL (81-99); Mean Platelet Vol. 13.8 fl (6.2-12.0); NRBC Flagged by Analyzer 0 % (0-5); Platelet Count 168 K/mm3 (150-450); RBC Distribution Width CV 13.2 % (11.6-14.6); RBC Distribution Width SD 45.0 fl (35.1-43.9); Red Blood Count 4.51 M/mm3 (4.2-5.4); White Blood Count 8.6 K/mm3 (4.4-11.0)
[2025-01-06 15:59] LABS: AST(SGOT) 61 U/L (<=31); Alanine Aminotransfer ALT/SGPT 33 U/L (<=34); Albumin, Serum 4.2 g/dL (3.4-4.8); Alkaline Phosphatase 144 U/L (35-104); Anion Gap 16 (5-15); BUN 9 mg/dL (4-19); BUN/Creat Ratio 15.8 RATIO (10-20); Calcium,Total 9.7 mg/dL (7.6-11.0); Carbon Dioxide 24.8 mmol/L (21.0-32.0); Chloride 97 mmol/L (98-108); Globulin 3.6 g/dL (2.2-4.2); Glucose 286 mg/dL (70-99); Potassium 4.5 mmol/L (3.3-5.1)
== END | disposition home or self-care (01) ==
LOC: MFPLAB 12:26
PROVIDERS: PCP Family Medicine; Referring Provider Family Medicine; Visit Provider Family Medicine
DX: R10.32 Left lower quadrant pain (principal)
CPT/HCPCS: 36415; 80053; 85025

== ENCOUNTER → 2025-01-06 | Outpatient (CLI) | payer MEDICARE, MEDICAID, SELFPAY ==
--- NOTE | 2025-01-06 13:32 | CT_ITS ---
PROCEDURE: ABDOMEN/PELVIS WITH CONTRAST 01/06/2025 REASON FOR EXAM: LLQ ABDOMINAL PAIN TECHNIQUE: ABDOMEN/PELVIS WITH CONTRAST Coronal and Sagittal reconstruction series were provided. CONTRAST: Isovue-300 VOLUME: 92 mL One or more dose reduction techniques were used (e.g., Automated exposure control, adjustment of the mA and/or kV according to patient size, use of iterative reconstruction technique. RADIATION DOSE SUMMARY: CTDlvol: 32 mGy DLP: 1193.28 mGycm COMPARISON: None. FINDINGS: Lung bases: Clear. Liver: Diffuse hepatic steatosis. Small circumscribed hypodense lesion in the medial left lobe measuring up to 1.3 cm, most likely a benign cyst or hemangioma. Gallbladder: Surgically absent. No significant biliary ductal dilatation. Spleen: Normal size and morphology. Pancreas: Within normal limits. Adrenals: Unremarkable. Kidneys: Unremarkable. No hydronephrosis or urolithiasis. Bladder: Unremarkable. Reproductive Organs: Unremarkable. Bowel: Unremarkable stomach and small bowel. Normal appendix. Oral contrast propagates to the rectum with no evidence of obstruction. Extensive colonic diverticulosis with long segment wall thickening and surrounding inflammatory fat stranding involving the descending and rectosigmoid colon, compatible with diverticulitis/colitis. Lymph nodes: No suspicious lymph node enlargement. Vasculature: Normal course and caliber of the abdominal aorta and IVC. Peritoneum / Retroperitoneum: No ascites or free air. Musculoskeletal: Subcutaneous fat stranding in the lower anterior abdominal wall probably related to medication injections. Multilevel degenerative changes of the spine. Postoperative changes of dorsal decompressive laminectomy at L5 with interbody fusion at L5-S1. CT/Abdomen/Pelvis WITH Contrast IMPRESSION: Acute uncomplicated diverticulitis/colitis involving the descending and rectosi gmoid colon. Reading Location: [id number]
[2025-01-06 15:42] LABS: CREATININE FINGERSTICK < 1.0 mg/dL (0.55-1.02); EGFR FINGERSTICK > 60.0000 mL/min (>60)
== END | disposition home or self-care (01) ==
LOC: CT 13:23
PROVIDERS: PCP Family Medicine; Referring Provider Family Medicine; Visit Provider Family Medicine
DX: R10.32 Left lower quadrant pain (principal)
CPT/HCPCS: 74177; Q9967

== ENCOUNTER → 2025-01-28 | Outpatient (CLI) | payer MEDICARE, MEDICAID, SELFPAY ==
[2025-01-28 15:04] LABS: Hematocrit 41.8 % (37-47); Hemoglobin 13.5 g/dL (12.0-15.0); Immature Granulocytes Count 0.010 X10^3/uL (0.0-0.0); Mean Corp Hgb Conc 32.3 g/dL (32-36); Mean Corpuscular Volume 93.7 fL (81-99); Mean Platelet Vol. 12.1 fl (6.2-12.0); NRBC Flagged by Analyzer 0 % (0-5); Platelet Count 168 K/mm3 (150-450); RBC Distribution Width CV 13.2 % (11.6-14.6); RBC Distribution Width SD 45.0 fl (35.1-43.9); Red Blood Count 4.46 M/mm3 (4.2-5.4); White Blood Count 7.8 K/mm3 (4.4-11.0)
[2025-01-28 15:22] LABS: Ammonia 29.2 umol/L (11-51)
[2025-01-28 15:30] LABS: AST(SGOT) 117 U/L (<=31); Alanine Aminotransfer ALT/SGPT 70 U/L (<=34); Albumin, Serum 4.3 g/dL (3.4-4.8); Alkaline Phosphatase 85 U/L (35-104); Anion Gap 15 (5-15); BUN 8 mg/dL (4-19); BUN/Creat Ratio 12.7 RATIO (10-20); CRP < 3.00 mg/L (0.0-3.0); Calcium,Total 9.6 mg/dL (7.6-11.0); Carbon Dioxide 24.5 mmol/L (21.0-32.0); Chloride 97 mmol/L (98-108); Ferritin 83 ng/mL (22-378); Globulin 3.5 g/dL (2.2-4.2); Glucose 376 mg/dL (70-99); Potassium 4.1 mmol/L (3.3-5.1)
--- OUTSIDE RECORDS SUMMARY | 2025-01-28 19:52 | XMS RPT_ITS | CCD ---
Author Organization [facility] Care Team Providers Care Induction Heating Equipment Setter Name Role Phone VIKRAM BUTLER JR. Unavailable Unavailable FAST, CAMI Unavailable Unavailable VIKRAM BUTLER JR. Unavailable Unavailable FAST, CAMI Unavailable Unavailable Fast, Cami A Unavailable Fast, Cami A Primary Care Provider Evelyn Azevedo N Unavailable Adelita Mendoza Unavailable Kristina Azevedoica N Unavailable Charan Azevedossica N Unavailable Annalise Randhawa MD Primary Care Provider Dr. Clemente Randhawa Primary Care Provider Dr. Clemente Randhawa Referring Provider Dr. Khadijah Tineo Attending Provider Annalise Randhawa MD Primary Care Provider Annalise Randhawa MD Primary Care Provider Annalise Randhawa MD Primary Care Provider Annalise Randhawa MD Primary Care Provider ANNALISE RANDHAWA Primary Care Annalise Sun MD Primary Care Provider Annalise Randhawa MD Primary Care Provider JOYCE MARLEY Referring Unavailable ANNALISE RANDHAWA Primary Care UnavailJOYCE Gutierrez Referring Unavailable ISMAEL, ZOYAER B Primary Care Unavailabl una Vazquez MD, Dr. Mcbride Primary Care Provider [phone] Taylor CORBETT, Dr. Mcbride Attending Provider Taylor CORBETT, Dr. Mcbride Referring Provider Maude Glover Attending Provider Bubba DO, Dr. Cuellar Attending Provider Bubba ADORNO, Dr. Cuellar Other Provider Taylor CORBETT, Dr. Mcbride Primary Care Provider Taylor CORBETT, Dr. Mcbride Referring Provider King CHELLE, Dr. Simon Attending Provider Yony CORBETT, Boby Primary Care Provider Yony CORBETT, Boby Referring Provider Maude Glover Referring Provider STEINER, KATTY E Attending Unavailable SELF Referring Unavailable RANNEY, CHRISTOPHER B Primary Care Unavailabl e STEINER, KATTY E Attending Unavailable SELF Referring Unavailable RANNEY, CHRISTOPHER B Primary Care Unavailabl e STEINER, KATTY E Attending Unavailable RANNEY, CHRISTOPHER B Primary Care Unavailabl e STEINER, KATTY E Attending Unavailable SELF Referring Unavailable RANNEY, CHRISTOPHER B Primary Care Unavailabl e STEINER, KATTY E Referring Unavailable RANNEY, CHRISTOPHER B Primary Care Unavailabl e STEINER, KATTY E Attending Unavailable SELF Referring Unavailable ISMAEL, RANIOPHER B Primary Care Unavailabl e Taylor CORBETT, Dr. Mcbride Primary Care Provider [phone] Taylor CORBETT, Dr. Mcbride Referring Provider Maude Glover Attending Provider Taylor CORBETT, Dr. Mcbride Attending Provider Reed Vazquez Primary Care Unavailable Reed Vazquez Referring Unavailable Reed Vazquez Attending Unavailable Reed Vazquez Attending Unavailable Reed Vazquez Primary Care Unavailable Maude Taylor Referring Unavailable Maude Taylor Attending Unavailable Boby Bhakta Primary Care Unavailable Polo Mac Attending Unavailable Reed Vazquez Primary Care Unavailable Vazquez, Reed Referring Unavailable Vazquez, Reed Primary Care Unavailable Vazquez, Reed Attending Unavailable Vazquez, Reed Referring Unavailable Atanasov, Maude Attending Unavailable Vazquez, Reed Primary Care Unavailable Vazquez, Reed Referring Unavailable Vazquez, Reed Referring Unavailable Atanasov, Maude Attending Unavailable Vazquez, Reed Primary Care Unavailable Atanasov, Maude Attending Unavailable Vazquez, Reed Primary Care Unavailable Vazquez, Reed Referring Unavailable Atanasov, Maude Attending Unavailable Vazquez, Reed Primary Care Unavailable Vazquez, Reed Referring Unavailable RussAlfred Attending Unavailable Yony, Boby Referring Unavailable Yony, Chalon Primary Care Unavailable Friend, Polo Attending Unavailable Friend, Polo Consulting Unavailable Vazquez, Reed Primary Care Unavailable Vazquez, Reed Referring Unavailable Russ, Alfred Attending Unavailable Yony, Boby Referring Unavailable Yony, Chalon Primary Care Unavailable Vazquez, Reed Referring Unavailable Vazquez, Reed Attending Unavailable Vazquez, Reed Primary Care Unavailable Vazquez, Reed Attending Unavailable Vazquez, Reed Primary Care Unavailable Vazquez, Reed Referring Unavailable Allergies Allergy Classification Reported Allergen(s) Allergy Type Date of Onset Reaction(s) Facility (8 sources) Clarithromycin Drug Allergy nausea and vomiting [facility] Work Phone: (8 sources) Indomethacin Drug Allergy rash [facility] Work Phone: (8 sources) Penicillin Drug Allergy rash [facility] Work Phone: (20 sources) Clarithromycin; Translations: [CLARITHROMYCIN] Drug Allergy 03-26-20 [facility] Work Phone: (11 sources) Indomethacin Drug Allergy 04-24-20 21 [facility] (20 sources) Indomethacin; Translations: [INDOMETHACIN SODIUM] Drug Allergy 03-26-20 [facility] Work Phone: (20 sources) Penicillins; Translations: [PENICILLINS] Allergy to substance 03-26-20 06 [facility] Work Phone: (20 sources) Amitriptyline; Translations: [AMITRIPTYLINE] Drug Allergy 01-24-20 22 Other: See [facility] Comment on above: confusion (20 sources) canagliflozin; Translations: [CANAGLIFLOZIN] Drug Allergy 01-24-20 22 Other: See Comments [facility] (20 sources) pioglitazone; Translations: [PIOGLITAZONE] Drug Allergy 02-26-20 17 Other: See Comments [facility] (20 sources) acetaZOLAMIDE; Translations: [ACETAZOLAMIDE] Drug Allergy 12-25-19 18 Other: See Comments [facility] (1 source) Amitriptyline Drug Allergy 10-26-19 [facility] (1 source) canagliflozin Drug Allergy 10-26-19 [facility] (1 source) Clarithromycin Drug Allergy 10-26-19 [facility] (1 source) Indomethacin Drug Allergy 10-26-19 [facility] (1 source) pioglitazone Drug Allergy 10-26-19 [facility] Rep[facility] Medications Current Medications Medication Drug Class(es) Dates Sig (Normalized) Sig (Original) BIPAP (20 sources) BIPAP Active BIPAP Blood-Glucose Sensor (Freest yle Amie 3 Plus Sensor) device (4 sources) Start: 10-25-2024 Blood-Glucose Sensor (Freestyle Amie 3 Plus Sensor) device Active 0 .Route 2 October 25, 2024 12:00am Diabetes mellitus care home current use of insulin Type 2 diabetes mellitus without complications care home (current) use of insulin As directed Start: 10-25-2024 Blood-Glucose Sensor (Freestyle Amie 3 Plus Sensor) device Active 0 .Route 2 October 25, 2024 12:00am As directed colestipol hydrochloride 1000 mg oral tablet (4 sources) Bile Acid Sequestrant Start: 10-19-2024 Colestipol 1 gram tablet Active 1 g PO daily 30 October 19, 2024 12:00am Dextromethorphan / quiNIDine (11 sources) Antiarrhythmic, Uncompetitive D-borpoc-B-aspartat e Receptor Antagonist, Cytochrome P450 2D6 Inhibitor, Sigma-1 Agonist Start: 03-18-2013 take 1 tablet by mouth once daily Nuedexta 20/10 Active 1 TABLET PO DAILY March 18, 2013 12:30pm Start: 03-18-2013 End: 01-31-2022 take 2 tablets by mouth once daily Nuedexta 20/10 tablet Discontinued 1 {tbl} PO DAILY March 18, 2013 12:00am January 31, 2022 3:35pm mood Start: 03-18-2013 End: 01-31-2022 take 2 tablets [...] 12:00am dicyclomine hydrochloride 10 mg oral capsule (11 sources) Anticholinergic Start: 08-11-2024 take 1 capsule by mouth every twelve hours dicyclomine (BENTYL) 10 mg capsule Take 1 capsule by mouth every 12 hours. 08/11/2024 Active Start: 08-11-2024 End: 10-04-2024 take 1 capsule by mouth twice daily Dicyclomine 10 mg capsule Discontinued 10 mg PO TWICE A DAY 05 07August 11, 2024 1:00am October 04, 2024 10:12am [...] 04, 2019 12:00am December 25, 2021 9:52am diabtetes Comment on above: inject 1 (ONE) pen ( 1.5mg) SUBCUTANEOUSLY EVERY WEEK escitalopram 20 mg oral tablet (20 sources) Serotonin Reuptake Inhibitor Start: 08-11-19 take 1 tablet by mouth once daily escitalopram oxalate (LEXAPRO) 20 mg tablet Take 1 tablet by mouth once daily. 12/09/2024 Active Start: 03-04-2019 End: 08-11-2024 take 1 tablet by mouth once daily Escitalopram Oxalate 10 MG tablet Discontinued 10 mg PO DAILY March 04, 2019 12:00am August 11, 2024 2:16pm mental health Comment on above: Escitalopram Oxalate Active 10 MG DAILY March 04, 2019 2:15am Take 10 mg by mouth once daily. Take 10 mg by mouth. gabapentin 600 mg oral tablet (20 sources) Anti-epileptic Agent Start: End: take 1 tablet by mouth three times daily gabapentin (NEURONTIN) 600 mg tablet Take 1 tablet by mouth three times a day for 30 days. 90 tablet 2 01/28/2025 02/27/2025 Active Start: 02-21-2024 End: 09-09-2024 take 1 [...] 04, 2019 12:00am August 11, 2024 2:16pm nerve pain Start: 04-07-2015 End: 07-29-2017 take 1 tablet [...] mg oral tablet (20 sources) Sulfonylurea Start: 9 End: 5 take 1 tablet by mouth once daily [...] ml insulin degludec 100 unt/ml pen injector (6 sources) Insulin Analog Start: 09-07-2024 TRESIBA FLEXTOUCH U-100 100 unit/mL (3 mL) injection pen 09/07/2024 Active 3 ml insulin lispro 100 unt/ml pen injector (18 sources) Insulin Analog Start: 10-25-2024 Insulin Lispro (Humalog Kwikpen Insulin) 100 unit/mL insulin pen Active 25 U SC THREE TIMES A DAY 15 0 October 25, 2024 12:00am carb ratio 1:2 Correction 1:20 > 140 Start: 08-30-2024 insulin lispro (HUMALOG KWIKPEN) 100 unit/mL INJECT 45 units before each meal 08/30/2024 Active Start: 02-12-2022 insulin lispro (HUMALOG KWIKPEN) 100 unit/mL INJECT 20 units under the skin before meals 0 02/12/2022 Active Comment on above: INJECT 20 units unde r the skin before meals meloxicam 7.5 mg oral tablet (20 sources) Nonsteroidal Anti-inflammatory Drug Start: 08-08-202 3 take 1 tablet by mouth once meloxicam (MOBIC) 7.5 mg tablet Take 1 tablet by mouth every afternoon. 01/21/2023 Active Comment on above: Take 1 tablet by esperanza th every afternoon. metFORMIN hydrochloride 1000 mg oral tablet (20 sources) Biguanide Start: 5 take 1 tablet by mouth every twelve hours metFORMIN (GLUCOPHAGE) 1,000 mg tablet Take 1 tablet by mouth every 12 hours. 10/27/2024 Active Start: 12-25-2021 End: 02-11-2023 take 1 tablet by mouth twice daily Metformin 1,000 mg tablet Active 1000 mg PO TWICE A DAY December 25, 2021 12:00am Start: 12-25-2021 take 1000 mg by mout h once daily Metformin Active 1000 MG PO DAILY December 25, 2021 12:00am Start: 03-18-2019 End: 08-17-2019 take 1 tablet by mouth twice daily Metformin 1,000 MG tablet Discontinued 1000 mg PO TWICE A DAY March 18, 2019 12:00am August 17, 2019 5:56pm diabetes Start: 03-02-2015 End: 02-11-2023 take 1 tablet by mouth three times daily metFORMIN ER (GLUCOPHAGE XR) 500 mg 24 hr tablet Take 1 tablet by mouth three times daily. 0 03/02/2015 02/11/2023 Discontinued Start: 03-12-2012 take 1 tablet by esperanza th once daily GLUCOPHAGE TABS One tablet by mouth daily METFORMIN HCL TABS [id number] Adelita Mendoza Comment on above: Take 1 tablet by esperanza th three times daily. Take 1,000 mg by esperanza th twice daily. metoclopramide 5 mg oral tablet (5 sources) Dopamine-2 Receptor Antagonist Start: 10-20-19 End: 10-26-19 25 take 1 tablet by mouth before mealtime metoclopramide HCl (REGLAN) 5 mg tablet TAKE 1 TABLET BY MOUTH 1/2 HOUR BEFORE MEALS FOR 8 WEEKS 10/19/2024 Active mirtazapine 30 mg oral tablet (20 sources) Start: 10-05-19 25 take 1 tablet by mouth once daily at bedtime mirtazapine (REMERON) 30 mg tablet Take 30 mg by mouth daily at bedtime. 12/09/2024 Active Start: 08-11-2024 End: 10-04-2024 take 1 tablet [...] tablet (20 sources) beta-Adrenergic Connor Start: 12-25-2021 propranolol (INDERAL) 20 mg tablet 01/01/2025 Active Start: 12-25-2021 take 20 mg by mouth [...] 20 mg PO TWICE A DAY 60 0 March 20, 2019 12:00am August 16, 2019 [...] by esperanza th once daily INDERAL LA [id number] One tablet by mouth daily PROPRANOLOL HCL [id number] Adelita Mendoza End: 02-11-2023 take 1 tablet by mouth three times daily propranolol (INDERAL) 20 mg tablet Take 20 mg by mouth three times daily. 0 02/11/2023 Discontinued Comment on above: Take 1 capsule by mo uth twice daily. Take 20 mg by mouth three times daily. REZDIFFRA 100 mg tablet (1 source) Start: 5 REZDIFFRA 100 mg tablet 01/05/2025 Active rosuvastatin calcium 5 mg oral tablet (6 sources) HMG-CoA Reductase Inhibitor Start: take 1 tablet by mouth once daily rosuvastatin (CRESTOR) 5 mg tablet Take 1 tablet by mouth once daily. 12/07/2024 Active Completed/Discontinued Medications Medication Drug Class(es) Dates Sig [...] 06/25/2022 06/21/2022 Discontinued Start: 03-18-2019 End: 08-11-2024 Oxycodone-Acetaminophen 1 TA BLET tablet Discontinued 1 {tbl} PO TWICE A DAY March 18, 2019 5:03pm August 11, 2024 1:50pm pain Start: 03-18-2019 take 1 tablet by esperanza th twice daily Oxycodone-Acetaminophen Active 1 TABLET PO [...] One tablet by esperanza th daily OXYCODONE-ACETAMINOPHEN [id number] Adelita Mendoza End: 12-25-2021 take 1 tablet by mouth [...] 21, 2023. Take 1 tablet by esperanza th twice daily as needed for pain for up to 30 days. Do not start before February 20, 2023. Take 1 tablet by esperanza th as directed for 14 days. Weaning prescription:Take 1 tab every day for a week then 1 tab every other day for a week and stop Do not start before March 22, 2023. aspirin 81 mg delayed release oral tablet (19 sources) Platelet Aggregation Inhibitor, Nonsteroidal Anti-inflammatory Drug Start: 04-25-20 End: 08-11-19 25 take 1 tablet by mouth once Aspirin (Adult Aspirin Regimen) 81 mg tablet,delayed release (DR/EC) Discontinued 81 mg PO ONCE December 25, 2021 9:51am August 11, 2024 2:15pm carbidopa 25 mg / entacapone 200 mg / levodopa 100 mg oral tablet (20 sources) Aromatic Amino Acid Decarboxylation Inhibitor, Zjopnyqq-A-Clrtxxclwxkem rase Inhibitor, Aromatic Amino Acid Start: 01-27-20 End: 02-12-20 23 take 1 tablet by mouth twice daily oaxlaqofi-ivjvqmcy-z ntacapone (STALEVO 100) 25-100-200 mg per tablet Take 1 tablet by mouth twice daily. 0 01/26/2022 02/11/2023 Discontinued Start: 01-09-2017 STALEVO 150 TA BS twice daily UHUHAGFRU-ARNERUSK-CPTQNSCZED TABS [id number] Adelita Mendoza Comment on above: Take 1 tablet by esperanza twice daily. carbidopa 25 mg / levodopa [...] Start: 09-06-2019 take 1 tablet by esperanza three times daily Carbidopa-Levodopa Active 1 TABLET PO THREE TIMES A DAY September 06, 2019 12:00am Start: 01-09-2017 CARBIDOPA-LEVO DOPA 25-100 MG TABS tid CARBIDOPA-LEVODOPA [id number] Adelita Mendoza Comment on above: Take 1 tablet by esperanza three times daily. CARBIDOPA/LEVODOPA/ENT ACAPONE (STALEVO 150 [...] 04, 2019 12:00am December 25, 2021 9:52am anxiety Start: 04-07-2015 End: 07-29-2017 take 1 tablet [...] on above: Take 2 tablets by mo ut at bedtime as needed. dextromethorphan Hbr/quinidine (DEXTROMETHORPHAN-QUINIDINE [...] times daily. ergocalciferol 1.25 mg oral capsule (11 sources) Provitamin D2 Compound Start: 017 End: Ergocalciferol (Vitamin D2) 50,000 UNIT capsule Discontinued 99259 U PO MO February 03, 2017 12:00am July 29, 2017 4:00pm esomeprazole 40 mg delayed release oral capsule (20 sources) Proton Pump Inhibitor Start: 015 End: 024 take 1 capsule by mouth once daily Esomeprazole Magnesium 40 MG capsule Discontinued 40 mg PO DAILY March 04, 2019 12:00am December 25, 2021 9:53am reflux Comment on above: Take 40 mg by mouth. 72 hr fentaNYL 0.025 mg/hr transdermal system (20 sources) Opioid Agonist Start: 025 Fentanyl 25 mcg/hr patch 72 hour Active 1 NMA TD Q72H 0 August 11, 2024 1:00am Start: 10-15-2023 End: 2025 apply 1 dose transdermal route every hour fentaNYL (DURAGESIC) 25 mcg/hr Indications: Myofascial pain syndrome , Chronic pain syndrome Apply 1 patch as directed every 72 hours for 30 days. As directed. Patient should start on December 29, 2024. 10 patch 12/29/2024 01/28/2025 Discontinued Start: 09-13-2023 End: 10-13-2023 apply 1 [...] One tablet by mouth daily HYDROMORPHONE HCL [id number] Adelita Mendoza Insulin Degludec (Tresiba Flextouch U-100) 100 unit/mL (3 mL) insulin pen (10 sources) Start: 5 End: 5 Insulin Degludec (Tresiba Flextouch U-100) 100 unit/mL (3 mL) insulin pen Discontinued 60 U SC AT BEDTIME October 04, 2024 12:00am October 25, 2024 8:26am Start: 10-04-2024 Insulin Deglud ec (Tresiba Flextouch U-100) 100 unit/mL (3 mL) insulin pen Active 60 U SC AT BEDTIME October 04, 2024 12:00am Start: 08-11-2024 Insulin Deglud ec (Tresiba Flextouch U-100) 100 unit/mL (3 mL) insulin pen Active 70 U SC DAILY August 11, 2024 1:00am 3 ml insulin detemir 100 unt/ml pen injector (20 sources) Insulin Analog Start: 12-25-2021 End: 08-11-2024 Insulin Detemir U-100 (Levemir Flextouch U-100 Insuln) [...] provided with radiology test) (1 source) Start: 2022 End: 2022 iv contrast (will be provided with radiology [...] guidelines link. lisinopril 5 mg oral tablet (11 sources) Angiotensin Converting Enzyme Inhibitor Start: 2018 End: 2018 take 1 tablet by mouth once daily Lisinopril 5 MG tablet Discontinued 5 mg PO DAILY March 04, 2019 12:00am March 20, 2019 10:23am hypertension METHYLPREDNISOLONE (15 sources) Corticosteroid Start: 2014 End: 2016 METHYLPREDNISOLONE 4 MG TBPK take as directed METHYLPREDNISOLONE [id number] Adelita Mendoza Start: 04-20-2015 METHYLPREDNISO LONE 4 MG TBPK take as directed METHYLPREDNISOLONE [id number] Adelita Mendoza morphine sulfate 15 mg extended [...] TE 15 MG TABS BID MORPHINE SULFATE [id number] Adelita Mendoza Start: 01-15-2015 End: 08-11-2024 take 1 tablet by mouth twice daily Morphine 15 MG tablet Discontinued 15 mg PO TWICE A DAY January 15, 2015 12:00am August 11, 2024 1:50pm pain Comment on above: Take 1 tablet by [...] times a day by mouth PREGABALIN CAPS [id number] Adelita Mendoza Start: 10-03-2011 take 1 capsule by mo uth three times daily LYRICA CAPS three times a day by mouth PREGABALIN CAPS [id number] Adelita Mendoza rasagiline 1 mg oral tablet (20 sources) Monoamine Oxidase Inhibitor Start: 03-17-2013 End: 08-11-2024 take 1 tablet by mouth once daily Rasagiline 1 MG tablet Discontinued 1 mg PO DAILY March 17, 2013 12:00am August 11, 2024 1:50pm parkinsons Start: 10-03-2011 take 1 tablet by esperanza th once daily AZILECT TABS One tablet by mouth daily RASAGILINE MESYLATE TABS [id number] Adelita Mendoza Comment on above: Take 1 tablet by esperanza th once daily. Semaglutide (5 sources) Start: 08-11-2024 End: 10-25-2024 Semaglutide (Ozempic) 1 mg/dose (4 mg/3 mL) pen injector Discontinued 1 mg SC WE August 11, 2024 1:00am October 25, 2024 3:03pm Start: 08-11-2024 Semaglutide (O zempic) 1 mg/dose (4 mg/3 mL) pen injector Active 1 mg SC WE August 11, 2024 1:00am SIMVASTATIN TABS (15 sources) HMG-CoA Reductase Inhibitor Start: 10-03-2011 End: 01-09-2017 take 1 tablet by mouth once daily SIMVASTATIN TABS One tablet by mouth daily SIMVASTATIN TABS [id number] Adelita Mendoza Start: 10-03-2011 take 1 tablet by esperanza th once daily SIMVASTATIN TABS One tablet by mouth daily SIMVASTATIN TABS [id number] Adelita Mendoza SITagliptin 100 mg oral tablet (11 sources) Dipeptidyl Peptidase 4 Inhibitor Start: 05-21-2016 [...] 2 mg PO TWICE A DAY 60 30 0 March 20, 2019 12:00am April 18, 2019 [...] abdominal pain] Onset: 04-25-2006 03-29-2010 Episodic Acute and unspecified renal failure (20 sources) Injury of kidney; Translations: [Acute kidney failure, unspecified] Onset: 02-11-2023 08-16-2019 Episodic Acute cerebrovascular disease (1 source) Cerebrovascular accident; Translations: [Other cerebral infarction] Chronic Diabetes mellitus with complications (9 sources) Polyneuropathy due to type 2 diabetes mellitus; Translations: [Type 2 diabetes mellitus with diabetic polyneuropathy] Onset: 07-26-2024 10-25-2024 Chronic Diabetes mellitus without complication (15 sources) Diabetes mellitus; Translations: [Type 2 diabetes mellitus without complications] 04-24-2021 Chronic Diabetes mellitus without complication (20 sources) Hyperglycemia; Translations: [Hyperglycemia, unspecified] Onset: 02-11-2023 11-16-2017 Episodic Disorders of lipid metabolism (20 sources) Hyperlipidemia; [...] (20 sources) Headache; Translations: [Headache] 03-15-2008 Episodic Inflammatory diseases of female pelvic organs (20 sources) Vaginal ulcer; Translations: [Ulceration of vagina] Onset: 02-11-2023 02-01-2022 Episodic Comment on above: granulation tissue s een, treated with silver nitrate. reocmmend vit E capsules. not a vaginal estrogen candidate. fu in 3-4 weeks if no resolution recommend biopsy. Meningitis (except that caused by tuberculosis or [...] unspecified] Onset: 11-15-2009 Resolved: 06-07-2015 11-15-2009 Episodic Nonmalignant breast conditions (20 sources) Breast lump; Translations: [Unspecified lump in the right breast, unspecified quadrant] Onset: 02-11-2023 Episodic Nonspecific chest pain (11 sources) Chest pain; Translations: [Chest pain, unspecified] 05-03-2021 Episodic Osteoarthritis (20 sources) Osteoarthritis of knee; Translations: [Osteoarthritis of knee, unspecified] Onset: 01-12-2015 01-13-2015 Chronic Osteoporosis (20 sources) Osteoporosis; Translations: [Age-related osteoporosis without current pathological fracture] Onset: 03-12-2012 03-12-2012 Chronic Other aftercare (20 sources) Patient encounter status; Translations: [Other half-way (current) drug therapy] Onset: 05-06-2019 Episodic Other aftercare (1 source) Admission statuses; Translations: [care home (current) use of opiate analgesic] 11-20-2023 Episodic Other circulatory disease (20 sources) Low blood pressure; Translations: [Hypotension, unspecified] Onset: 02-11-2023 08-17-2019 Episodic Other connective tissue disease (20 sources) Neurological symptom; Translations: [Unspecified symptoms and signs involving the nervous system] Onset: 02-11-2023 05-03-2021 Episodic Other connective tissue disease (7 sources) Fibromyalgia; Translations: [Fibromyalgia] 01-23-2022 Episodic Other connective tissue disease (20 sources) Myofascial pain syndrome; Translations: [Myalgia, other site] Onset: 03-14-2023 02-11-2023 Episodic Other disorders of stomach and duodenum (20 sources) Gastroparesis syndrome; Translations: [Gastroparesis] Onset: 02-11-2023 03-04-2019 Episodic Other female genital disorders (7 sources) Vaginal bleeding; Translations: [Abnormal uterine and vaginal bleeding, unspecified] 01-23-2022 Chronic Other gastrointestinal disorders (11 sources) Irritable bowel syndrome; Translations: [Irritable bowel syndrome without diarrhea] 03-18-2019 Chronic Other gastrointestinal disorders (11 sources) Constipation; Translations: [Constipation, unspecified] 03-04-2019 Episodic Other gastrointestinal disorders (20 sources) Diarrhea; Translations: [Diarrhea, unspecified] 03-15-2008 Episodic Other gastrointestinal disorders (16 sources) Loose stool; Translations: [Other fecal abnormalities] 08-11-2024 Episodic Other liver diseases (2 sources) Hepatic fibrosis; Translations: [Hepatic fibrosis] 01-28-2025 Chronic Other nervous system disorders (20 sources) Carpal [...] [Obstructive sleep apnea (adult) (pediatric)] 03-15-2008 Chronic Residual codes; unclassified (20 sources) Insomnia; Translations: [Insomnia, unspecified] Onset: 02-11-2023 01-23-2022 Episodic Rheumatoid arthritis and related disease (20 sources) Rheumatoid arthritis; Translations: [Rheumatoid arthritis, unspecified] Onset: 02-11-2023 01-23-2022 Chronic Septicemia (except in labor) (20 sources) Septic shock; Translations: [Sepsis, unspecified organism] Onset: 02-11-2023 08-16-2019 Episodic Spondylosis; intervertebral disc disorders; other back problems (20 sources) Cervical spondylosis; Translations: [Other spondylosis, cervical region] Onset: 05-04-2015 05-04-2015 Chronic Comment on above: Chronic low back tiffanie nMultiple surgeriesPain management Spondylosis; intervertebral disc disorders; other back problems (20 sources) Lumbar radiculopathy; Translations: [Radiculopathy, lumbar region] Onset: 02-25-2017 Episodic Substance-related disorders (20 sources) Continuous opioid dependence; Translations: [Opioid dependence, uncomplicated] Onset: 10-24-2022 Chronic Suicide and intentional self-inflicted injury (20 sources) Intentional drug overdose by tablet; Translations: [Poisoning by unspecified drugs, medicaments and biological substances, intentional self-harm, initial encounter] Onset: 10-24-2022 10-24-2022 Episodic Transient cerebral ischemia (20 sources) Transient cerebral ischemia; Translations: [Transient cerebral ischemic attack, unspecified] Onset: 02-11-2023 01-23-2022 Chronic Unclassified (20 sources) OPENED IN ERROR Onset: 04-06-2023 04-06-2023 Past or Other Problems Problem Classification Problem Date Documented Da te Episodic/Chronic Acquired foot deformities (20 sources) Foot-drop; Translations: [Foot drop, unspecified foot] Onset: 02-25-2017 02-11-2023 Episodic Cardiac dysrhythmias (20 sources) Tachycardia; Translations: [Tachycardia, unspecified] Onset: 05-30-2015 05-30-2015 Episodic Gastritis and duodenitis (20 sources) Acute gastritis; Translations: [Acute gastritis without bleeding] Onset: 04-25-2006 03-29-2010 Episodic Immunizations and screening for infectious disease (1 source) Anti-nuclear factor positive; Translations: [Positive CARLOS (antinuclear antibody)] Episodic Joint disorders and dislocations; trauma-related (20 sources) Tear of medial meniscus of knee; Translations: [Other tear of medial meniscus, current injury, unspecified knee] Onset: 03-12-2012 03-12-2012 Episodic Other aftercare (3 sources) Postoperative physical examination; Translations: [Encounter for other specified surgical aftercare] Onset: 02-18-2017 02-18-2017 Episodic Other aftercare (7 sources) H/O: high risk medication; Translations: [Other half-way (current) drug therapy] Onset: 05-06-2019 01-15-2022 Episodic Other aftercare (20 sources) Taking high risk medication; Translations: [Other roasterman (current) drug therapy] Onset: 05-06-2019 Episodic Other aftercare (20 sources) Long-term current use of drug therapy; Translations: [Other half-way (current) drug therapy] Onset: 05-06-2019 10-09-2023 Episodic Other aftercare (3 sources) Other half-way (current) drug therapy; Translations: [Encounter for long-term (current) use of medications] Onset: 04-04-2023 Episodic Other aftercare (1 source) care home (current) use of opiate analgesic; Translations: [Encounter for long-term opiate analgesic use] Onset: 02-10-2024 Episodic Other and unspecified benign neoplasm (20 sources) Benign neoplasm of colon; Translations: [Benign neoplasm of colon, unspecified] Onset: 04-25-2006 03-29-2010 Episodic Other connective tissue disease (8 sources) [...] 02-01-2014 02-01-2014 Episodic Other connective tissue disease (4 sources) Myalgia, other site; Translations: [Myalgia, other site] Onset: 03-14-2023 Episodic Other disorders of stomach and duodenum (2 sources) Gastroparesis; Translations: [Gastroparesis] Onset: 07-12-2024 Episodic Other gastrointestinal disorders (20 sources) Functional disorder of intestine; Translations: [Other functional disorders of intestine] Onset: 04-25-2006 03-29-2010 Episodic Other gastrointestinal disorders (1 source) Other fecal abnormalities; Translations: [Other fecal abnormalities] Onset: 10-14-2024 Episodic Other gastrointestinal disorders (1 source) Diarrhea, unspecified; Translations: [Diarrhea, unspecified] Onset: 10-14-2024 Episodic Other non-traumatic joint disorders (16 sources) [...] conditions (not mental disorders or infectious disease) (19 sources) CT of abdomen abnormal; Translations: [Abnormal findings on diagnostic imaging of other abdominal regions, including retroperitoneum] Onset: 06-07-2015 Resolved: 06-07-2015 06-07-2015 Episodic Residual codes; unclassified (1 source) Pain Onset: 02-10-2024 Episodic Sprains and strains (8 sources) Sprain of unspecified rotator cuff capsule, initial encounter; Translations: [Rotator cuff (capsule) sprain] Onset: 01-18-2014 01-19-2014 Episodic Results Test Name Value Interpretation Reference Range Facility Abdomen/Pelvis WITH Contrast on 01-06-2025 Abdomen/Pelvis WITH Contrast [facility] Services [address] [place], [place] [id number] Abdomen/Pelvis WITH Contrast MR#: [id number] Acct: [id number] Name: ROSEANNA JONES Rep #: [id number] : 1960 F 64 From: Lavelle Begum MD PCP: Dr. Reed Vazquez MD Status: REG CLI Study: Abdomen/Pelvis WITH Contrast Date of Exam: Exam# [id number] Ordering Dr: Reed Vazquez MD PROCEDURE: ABDOMEN/PELVIS WITH CONTRAST 01/06/2025 REASON FOR EXAM: LLQ ABDOMINAL PAIN TECHNIQUE: ABDOMEN/PELVIS WITH CONTRAST Coronal and Sagittal reconstruction series were provided. CONTRAST: Isovue-300 VOLUME: 92 mL One or more dose reduction techniques were used (e.g., Automated exposure control, adjustment of the mA and/or kV according to patient size, use of iterative reconstruction technique. RADIATION DOSE SUMMARY: CTDlvol: 32 mGy DLP: 1193.28 mGycm COMPARISON: None. FINDINGS: Lung bases: Clear. Liver: Diffuse hepatic steatosis. Small circumscribed hypodense lesion in the medial left lobe measuring up to 1.3 cm, most likely a benign cyst or hemangioma. Gallbladder: Surgically absent. No significant biliary ductal dilatation. Spleen: Normal size and morphology. Pancreas: Within normal limits. Adrenals: Unremarkable. Kidneys: Unremarkable. No hydronephrosis or urolithiasis. Bladder: Unremarkable. Reproductive Organs: Unremarkable. Bowel: Unremarkable stomach and small bowel. Normal appendix. Oral contrast propagates to the rectum with no evidence of obstruction. Extensive colonic diverticulosis with long segment wall thickening and surrounding inflammatory fat stranding involving the descending and rectosigmoid colon, compatible with diverticulitis/colitis. Lymph nodes: No suspicious lymph node enlargement. Vasculature: Normal course and caliber of the abdominal aorta and IVC. Peritoneum / Retroperitoneum: No ascites or free air. Musculoskeletal: Subcutaneous fat stranding in the lower anterior abdominal wall probably related to medication injections. Multilevel degenerative changes of the spine. Postoperative changes of dorsal decompressive laminectomy at L5 with interbody fusion at L5-S1. CT/Abdomen/Pelvis WITH Contrast IMPRESSION: Acute uncomplicated diverticulitis/colitis involving the descending and rectosigmoid colon. Reading Location: [facility] CC: Dr. Reed Vazquez MD Nurse School: Signed Normal [facility] Absolute lymphocyte countOrd ered By: Reed Vazquez on 01-06-2025 Lymphocytes Auto (Unsp spec) [#/Vol] 2.63 10*3/uL 0.83-4.51 [facility] Absolute neutrophil countOrd ered By: Reed Vazquez on 01-06-2025 Neutrophils (Bld) [#/Vol] 5.1 10*3/uL 2.0-7.7 [facility] Anion gap in Serum or Plasma Ordered By: Reed Vazquez on 01-06-2025 Anion gap [Moles/Vol] 16 mmol/L High 5-15 [facility] Automated lymphocyte count a s percentage of total leukocytesOrdered By: Reed Vazquez on 01-06-2025 Lymphocytes/100 WBC Auto (Unsp spec) 30.5 % 19-41 [facility] BUN/creatinine ratioOrdered By: Reed Vazquez on 01-06-2025 Urea nitrogen/Creatinine [Mass ratio] 15.8 mg/mg 10- [facility] Basophil percentageOrdered B y: Reed Vazquez on 01-06-2025 Basophils/100 WBC (Bld) 0.6 % 0-1 [facility] Bilirubin, totalOrdered By: Reed Vazquez on 01-06-2025 Bilirubin [Mass/Vol] 0.46 mg/dL 0.00-1.[address] [facility] CBC W/Diff, Automatedon 12-15 Absolute Lymph 2.63 X10 3/uL Normal 0.83-4.51 [facility] Comment on above: Performed By: #### L 500.4100, L500.4050 #### [facility] [address] [place], [address] Absolute Neut 5.1 X10 3/uL Normal 2.0-7.7 [facility] Comment on above: Performed By: #### L 500.4100, L500.4050 #### [facility] [address] [place], [address] Basophils/100 WBC (Bld) 0.6 % Normal 0-1 [facility] Comment on above: Performed By: #### L 500.4100, L500.4050 #### [facility] [address] [place], [address] Eosinophils/100 WBC (Bld) 1.5 % Normal 0-5 [facility] Comment on above: Performed By: #### L 500.4100, L500.4050 #### [facility] [address] [place], [address] Erythrocyte distribution width (RBC) [Ratio] 13.2 % Normal 11.6-14.6 [facility] Comment on above: Performed By: #### L 500.4100, L500.4050 #### [facility] [address] [place], [address] Hematocrit (Bld) [Volume fraction] 42.4 % Normal 37-47 [facility] Comment on above: Performed By: #### L 500.4100, L500.4050 #### [facility] [address] [place], [address] Hemoglobin (Bld) [Mass/Vol] 13.6 g/dL Normal 12.0-15.0 [facility] Comment on above: Performed By: #### L 500.4100, L500.4050 #### [facility] [address] [place], [address] IG% 0.300 Normal 0.0-0.9 [facility] Comment on above: Result Comment: IG% - Immature Granulocytes (promyelocytes, myelocytes and metamyelocytes) > 1% indicates that a LEFT SHIFT is Present. Performed By: #### L 500.4100, L500.4050 #### [facility] [address] [place], [address] Lymphocytes/100 WBC (Bld) 30.5 % Normal 19-41 [facility] Comment on above: Performed By: #### L 500.4100, L500.4050 #### [facility] [address] [place], [address] MCH (RBC) [Entitic mass] 30.2 pg Normal 27.0-32.0 [facility] Comment on above: Performed By: #### L 500.4100, L500.4050 #### [facility] [address] [place], [address] MCHC (RBC) [Mass/Vol] 32.1 g/dL Normal 32-36 [facility] Comment on above: Performed By: #### L 500.4100, L500.4050 #### [facility] [address] [place], [address] MCV (RBC) [Entitic vol] 94.0 fL Normal 81-99 [facility] Comment on above: Performed By: #### L 500.4100, L500.4050 #### [facility] [address] [place], [address] Monocytes/100 WBC (Bld) 8.2 % Normal 0-10 [facility] Comment on above: Performed By: #### L 500.4100, L500.4050 #### [facility] [address] [place], [address] Neutrophils/100 WBC (Bld) 58.9 % Normal 47-70 [facility] Comment on above: Performed By: #### L 500.4100, L500.4050 #### [facility] [address] [place], [address] Nucleated RBC (Bld) [#/Vol] 0 10*3/uL Normal 0-5 [facility] Comment on above: Performed By: #### L 500.4100, L500.4050 #### [facility] [address] [place], [address] Platelet mean volume (Bld) [Entitic vol] 13.8 fL High 6.2-12.0 [facility] Comment on above: Performed By: #### L 500.4100, L500.4050 #### [facility] [address] [place], [address] Platelets (Bld) [#/Vol] 168 10*3/uL Normal 150-450 [facility] Comment on above: Performed By: #### L 500.4100, L500.4050 #### [facility] [address] [place], [address] RBC (Bld) [#/Vol] 4.51 10*6/uL Normal 4.2-5.4 [facility] Comment on above: Performed By: #### L 500.4100, L500.4050 #### [facility] [address] [place], [address] RDW SD 45.0 fl High 35.1-43.9 [facility] Comment on above: Performed By: #### L 500.4100, L500.4050 #### [facility] [address] [place], [address] WBC (Bld) [#/Vol] 8.6 10*3/uL Normal 4.4-11.0 [facility] Comment on above: Performed By: #### L 500.4100, L500.4050 #### [facility] [address] [place], [address] CNPNon 01-06-2025 QUINCYN Telephone (KIKO) -- KULDIP JONESDEANGELO Langley ([id number]) 1960 F Date Time Provider Department 01/06/25 JOSIE CHAND During your visit today, we recorded the following information about you: Kyleigh Baker RN 01/06/2025 12:43 PM Signed Pt daughter Makeda reid, states pt had appt with pcp today. Pt has diverticulitis with abscess and is prescribed tramadol and zofran. They are asking if pt can take this, please advise Kyleigh Baker RN January 06, 2025 12:43 PM Josie Chand APRN.MACHINE WHITENER 01/06/2025 1:07 PM Signed That's fine Kyleigh Baker RN 01/06/2025 1:23 PM Signed Makeda pt daughter and DDM Shu Napoles pharmacist, notified Kyleigh Baker RN January 06, 2025 1:23 PM Allergies As of Date: 01/06/2025 Noted Allergy Reaction ACETAZOLAMIDE 12/24/2017 14 - Other: See Comments PIOGLITAZONE 02/25/2017 14 - Other: See Comments AMITRIPTYLINE 01/23/2022 14 - Other: See Comments BIAXIN (CLARITHROMYCIN) 03/26/2006 INDOCIN (INDOMETHACIN SODIUM) 03/26/2006 PENICILLINS 03/26/2006 CANAGLIFLOZIN 01/23/2022 14 - Other: See Comments Date Reviewed: 11/25/2024 Reviewed by: Katty Steiner APRN.MACHINE WHITENER - Fully Assessed Reason for Visit: Patient Question [8197] Prescriptions as of 01/06/2025 - fentaNYL (DURAGESIC) 25 mcg/hr Apply 1 patch as directed every 72 hours for 30 days. As directed. Patient should start on November 29, 2024. - fentaNYL (DURAGESIC) 25 mcg/hr Apply 1 patch as directed every 72 hours for 30 days. As directed. Patient should start on December 29, 2024. - gabapentin (NEURONTIN) 600 mg tablet Take 1 tablet by mouth three times a day for 30 days. Patient should start on November 26, 2024. - dicyclomine (BENTYL) 10 mg capsule Take 1 capsule by mouth every 12 hours. - TRESIBA FLEXTOUCH U-100 100 unit/mL (3 mL) injection pen - insulin lispro (HUMALOG KWIKPEN) 100 unit/mL INJECT 45 units before each meal - omeprazole (PRILOSEC) 40 mg capsule Take 40 mg by mouth once daily. - fentaNYL (DURAGESIC) 25 mcg/hr Apply 1 Patch as directed every 72 hours for 30 days. As directed. Patient should start on May 19, 2024. - meloxicam (MOBIC) 7.5 mg tablet Take [...] mg by mouth every morning. - BIPAP Problem List As Of Date 01/06/2025 Noted Resolved BENIGN NEOPLASM LG BOWEL [D12.6] 04/25/2006 ABDOMINAL PAIN RUQ [R10.11] 04/25/2006 FUNC DISORDERS INTESTINE NEC [K59.89] 04/25/2006 ACUTE GASTRITIS W/O HEMORRHAGE [K29.00] 04/25/2006 NONORGANIC SLEEP DIS NOS [F51.9] Diverticulitis of colon [K57.32] HYPERLIPIDEMIA NEC/NOS [E78.5] OBSTRUCTIVE SLEEP APNEA, ADULT AND PED [G47.33] HEADACHE [R51] DEPRESSIVE DISORDER NEC [F32.89] Essential hypertension, malignant [I10] 03/20/2016 ESOPHAGEAL REFLUX [K21.9] DISC DEGENERATION NOS [[id number]] ABDOMINAL PAIN GENERALIZED [R10.84] DIARRHEA NOS [R19.7] [...] use of high-r*05/06/2019 Lumbar radiculopathy [M54.16] 02/25/2017 Postlaminectomy syndrome, lumbar region [M96.1] 02/25/2017 Cervicalgia [M54.2] 02/26/2018 Osteoarthritis of knee [M17.9] 01/12/2015 Other chronic pain [G89.29] 01/15/2022 Opioid dependence, continuous (HCC) [F11.20] 10/24/2022 Intentional overdose of drug in tablet form (HC*10/24/2022 Disorder of sacroiliac joint [M53.3] 01/15/2022 Diagnosed: 02/11/2023 Foot drop [M21.379] 02/25/2017 Diagnosed: 02/11/2023 Gastroparesis [K31.84] 02/11/2023 Diagnosed: 02/11/2023 Hyperglycemia [R73.9] 02/11/2023 Diagnosed: 02/11/2023 Hypotension [I95.9] 02/11/2023 Diagnosed: 02/11/2023 Iliotibial band syndrome [M76.30] 09/19/2016 Diagnosed: 02/11/2023 Impingement syndrome of shoulder region [M75.40]02/01/2014 Diagnosed: 02/11/2023 Injury of kidney [S37.009A] 02/11/2023 Diagnosed: 02/11/2023 Insomnia [G47.00] 02/11/2023 Diagnosed: 02/11/2023 Mass of breast [N63.0] 02/11/2023 Diagnosed: 02/11/2023 Migraine headache [G43.909] 01/15 (more content not included)... Normal [facility] CREATININE FINGERSTICKon CREATININE WB < 1.0 Normal 0.55-1.02 [facility] Comment on above: Performed By: #### L 9100.0200 #### [facility] [address], [place], [id number] EGFR WB > 60.0000 Normal >60 [facility] Comment on above: Performed By: #### L 9100.0200 #### [facility] [address], [place], [id number] Carbon dioxide, total [Moles /volume] in Central venous bloodOrdered By: Reed Vazquez on 01-06-2025 CO2 [Moles/Vol] 24.8 mmol/L 21.0-32.0 [facility] Chloride assayOrdered By: Arely Vazquez on 01-06-2025 Chloride [Moles/Vol] 97 mmol/L Low 98-[address] [facility] Comprehensive Metabolic Prof ilon 01-06-2025 Albumin [Mass/Vol] 4.2 g/dL Normal 3.4-4.8 [facility] Comment on above: Performed By: #### L 500.4100, L500.4050 #### [facility] [address] [place], [address] Albumin/Globulin [Mass ratio] 1.2 {ratio} Normal 0.9-2.4 [facility] Comment on above: Performed By: #### L 500.4100, L500.4050 #### [facility] [address] [place], [address] ALK PHOS 144 U/L High 35-104 [facility] Comment on above: Performed By: #### L 500.4100, L500.4050 #### [facility] [address] [place], [address] ALT [Catalytic activity/Vol] 33 U/L Normal <=34 [facility] Comment on above: Performed By: #### L 500.4100, L500.4050 #### [facility] [address] [place], [address] AST [Catalytic activity/Vol] 61 U/L High <=31 [facility] Comment on above: Performed By: #### L 500.4100, L500.4050 #### [facility] [address] [place], [address] Bilirubin [Mass/Vol] 0.46 mg/dL Normal 0.00-1.[address] [facility] Comment on above: Performed By: #### L 500.4100, L500.4050 #### [facility] [address] [place], [address] BUN/CRE 15.8 RATIO Normal 10-20 [facility] Comment on above: Performed By: #### L 500.4100, L500.4050 #### [facility] [address] [place], [address] Calcium [Mass/Vol] 9.7 mg/dL Normal 7.6-11.0 [facility] Comment on above: Performed By: #### L 500.4100, L500.4050 #### [facility] [address] [place], [address] Chloride [Moles/Vol] 97 mmol/L Low 98-[address] [facility] Comment on above: Performed By: #### L 500.4100, L500.4050 #### [facility] [address] [place], [address] CO2 [Moles/Vol] 24.8 mmol/L Normal 21.0-32.0 [facility] Comment on above: Performed By: #### L 500.4100, L500.4050 #### [facility] [address] [place], [address] Creatinine [Mass/Vol] 0.56 mg/dL Low 0.70-1.20 [facility] Comment on above: Performed By: #### L 500.4100, L500.4050 #### [facility] [address] [place], [address] GAP 16 High 5-15 [facility] Comment on above: Performed By: #### L 500.4100, L500.4050 #### [facility] [address] [place], [address] GFR/1.73 sq M.predicted among non-blacks MDRD (S/P/Bld) [Vol rate/Area] 102 mL/min/{1.73_m2} Normal >60 [facility] Comment on above: Result Comment: mL/m in/1.73m2 CKD-EPI Creatinine Equation (2020) Performed By: #### L 500.4100, L500.4050 #### [facility] [address] [place], [address] Globulin (S) [Mass/Vol] 3.6 g/dL Normal 2.2-4.2 [facility] Comment on above: Performed By: #### L 500.4100, L500.4050 #### [facility] [address] [place], [address] Glucose [Mass/Vol] 286 mg/dL High 70-99 [facility] Comment on above: Performed By: #### L 500.4100, L500.4050 #### [facility] [address] [place], [address] Potassium [Moles/Vol] 4.5 mmol/L Normal 3.3-5.1 [facility] Comment on above: Performed By: #### L 500.4100, L500.4050 #### [facility] [address] [place], [address] Sodium [Moles/Vol] 137 mmol/L Normal 133-145 [facility] Comment on above: Performed By: #### L 500.4100, L500.4050 #### [facility] [address] [place], [address] T PROT 7.8 g/dL Normal 5.9-8.4 [facility] Comment on above: Performed By: #### L 500.4100, L500.4050 #### [facility] [address] [place], [address] Urea nitrogen [Mass/Vol] 9 mg/dL Normal 4-19 [facility] Comment on above: Performed By: #### L 500.4100, L500.4050 #### [facility] [address] [place], [address] EGFROrdered By: Reed Vazquez on 01-06-2025 GFR/1.73 sq M.predicted among non-blacks MDRD (S/P/Bld) [Vol rate/Area] mL/min/{1.73_m2} >60 [facility] Eosinophil percentageOrdered By: Reed Vazquez on 01-06-2025 Eosinophils/100 WBC (Bld) 1.5 % 0-5 [facility] Erythrocyte distribution wid th ratioOrdered By: Reed Vazquez on 01-06-2025 Erythrocyte distribution width (RBC) [Ratio] 13.2 % 11.6-14.6 [facility] Erythrocyte distribution wid th standard deviationOrdered By: Reed Vazquez on 01-06-2025 Erythrocyte distribution width (RBC) [Ratio] 45.0 fl High 35.1-43.9 [facility] Glomerular filtration rate ( GFR) estimation/1.73 sq m using serum, plasma, or whole bOrdered By: Reed Vazquez on 01-06-2025 GFR/1.73 sq M.predicted among non-blacks MDRD (S/P/Bld) [Vol rate/Area] 102 mL/min/{1.73_m2} >60 [facility] Comment on above: mL/min/1.73m2 CKD-EP I Creatinine Equation (2020) Hematocrit Auto (Bld) [Volum e fraction]Ordered By: Reed Vazquez on 01-06-2025 Hematocrit (Bld) [Volume fraction] 42.4 % 37-47 [facility] Hemoglobin measurementOrdere d By: Reed Vazquez on 01-06-2025 Hemoglobin (Bld) [Mass/Vol] 13.6 g/dL 12.0-15.0 [facility] Immature granulocytes/100 WB C Auto (Bld)Ordered By: Reed Vazquez on 01-06-2025 Immature granulocytes/100 WBC (Bld) 0.300 % 0.0-0.9 [facility] Comment on above: IG% - Immature Granu locytes (promyelocytes, myelocytes and metamyelocytes) > 1% indicates that a LEFT SHIFT is Present. Laboratory - Chemistry and C hemistry - challengeOrdered By: Reed Vazquez on 01-06-2025 AST [Catalytic activity/Vol] 61 U/L High <32 [facility] MCV (mean corpuscular volume ) determinationOrdered By: Reed Vazquez on 01-06-2025 MCV (RBC) [Entitic vol] 94.0 fL 81-99 [facility] Mean corpuscular hemoglobin (MCH) determinationOrdered By: Reed Vazquez on 01-06-2025 MCH (RBC) [Entitic mass] 30.2 pg 27.0-32.0 [facility] Mean corpuscular hemoglobin concentration (MCHC) determinationOrdered By: Reed Vazquez on 01-06-2025 MCHC (RBC) [Mass/Vol] 32.1 g/dL 32-36 [facility] Mean platelet volume determi nationOrdered By: Rede Vazquez on 01-06-2025 Platelet mean volume (Bld) [Entitic vol] 13.8 fL High 6.2-12.0 [facility] Monocyte percentageOrdered B y: Reed Vazquez on 01-06-2025 Monocytes/100 WBC (Bld) 8.2 % 0-10 [facility] Neutrophil percentageOrdered By: Reed Vazquez on 01-06-2025 Neutrophils/100 WBC (Bld) 58.9 % 47-70 [facility] Nucleated red blood cell per centageOrdered By: Reed Vazquez on 01-06-2025 Nucleated RBC/100 WBC (Bld) [Ratio] 0 % 0-5 [facility] Platelet countOrdered By: Arely Vazquez on 01-06-2025 Platelets (Bld) [#/Vol] 168 10*3/uL 150-450 [facility] Potassium measurement (mass/ volume)Ordered By: Reed Vazquez on 01-06-2025 Potassium (Unsp spec) [Mass/Vol] 4.5 mmol/L 3.3-5.1 [facility] RBC Auto (Bld) [#/Vol]Ordere d By: Reed Vazquez on 01-06-2025 RBC (Bld) [#/Vol] 4.51 10*6/uL 4.2-5.4 [facility] Serum creatinine measurement (mass/volume)Ordered By: Reed Vazquez on 01-06-2025 Creatinine [Mass/Vol] 0.56 mg/dL Low 0.70-1.20 [facility] Serum globulin measurementOr dered By: Reed Vazquez on 01-06-2025 Globulin (S) [Mass/Vol] 3.6 g/dL 2.2-4.2 [facility] Serum glucose measurement (m ass/volume)Ordered By: Reed Vazquez on 01-06-2025 Glucose [Mass/Vol] 286 mg/dL High 70-99 [facility] Serum or plasma alanine rosa otransferase (ALT) measurementOrdered By: Reed Vazquez on 01-06-2025 ALT [Catalytic activity/Vol] 33 U/L <35 [facility] Serum or plasma albumin abril urement (mass/volume)Ordered By: Reed Vazquez on 01-06-2025 Albumin [Mass/Vol] 4.2 g/dL 3.4-4.8 [facility] Serum or plasma albumin/glob ulin mass ratioOrdered By: Reed Vazquez on 01-06-2025 Albumin/Globulin [Mass ratio] 1.2 {ratio} 0.9-2.4 [facility] Serum or plasma alkaline teresa sphatase measurementOrdered By: Reed Vazquez on 01-06-2025 ALP [Catalytic activity/Vol] 144 U/L High 35-104 [facility] Serum or plasma calcium abril urement (mass/volume)Ordered By: Reed Vazquez on 01-06-2025 Calcium [Mass/Vol] 9.7 mg/dL 7.6-11.0 [facility] Serum or plasma urea nitroge n measurement (mass/volume)Ordered By: Reed Vazquez on 01-06-2025 Urea nitrogen [Mass/Vol] 9 mg/dL 4-19 [facility] Sodium levelOrdered By: Reed Vazquez on 01-06-2025 Sodium [Moles/Vol] 137 mmol/L 133-145 [facility] Total proteinOrdered By: Zuleika Vazquez on 01-06-2025 Protein [Mass/Vol] 7.8 g/dL 5.9-8.4 [facility] White blood cell (WBC) count Ordered By: Reed Vazquez on 01-06-2025 WBC (Bld) [#/Vol] 8.6 10*3/uL 4.4-11.0 [facility] ABD Limited w/ Elastographyo n 12-01-2024 ABD Limited w/ Elastography [facility] Imaging Services [address] [place] [address] [id number] ABD Limited w/ Elastography MR#: [id number] Acct: [id number] Name: ROSEANNA JONES Rep #: [id number] : 1960 F 64 From: Nolberto guevara MD PCP: Dr. Boby Bhakta MD Status: REG CLI Study: ABD Limited w/ Elastography Date of Exam: 11/14 02/07 Exam# [id number] Ordering Dr: Maude Taylor PROCEDURE: ABD LIMITED W/ ELASTOGRAPHY REASON FOR EXAM: ESOPHAGEAL VARICES COMPARISON: None. TECHNIQUE: Right upper quadrant abdominal ultrasound. [employer] ElastQ Imaging shear wave elastography for non- invasive assessment of liver tissue stiffness. [employer] EPIQ Elite. FINDINGS: LIVER: Size: Enlarged (hepatomegaly) Length: 21.2 cm Echotexture: Diffusely echogenic suggesting fatty infiltration Contour: Normal Lesions: There is a 1.7 cm x 1.4 cm x 1.4 cm septated cyst in the left lobe of the liver. Elastography: EQI Med: 12.5 kPa EQI Med Naveen: 2.03 m/s IQR/Med: 20 %* GALLBLADDER: Surgically absent. COMMON BILE DUCT: Normal measuring 5.7 mm. Possible choledochal cyst measuring 2.2 cm 1.4 cm x 1.4 cm.. PANCREAS: Normal Visualized portions of the right kidney are unremarkable. No right upper quadrant ascites. US/ABD Limited w/ Elastography IMPRESSION: SEVERE HEPATIC FIBROSIS / CIRRHOSIS Hepatomegaly and fatty infiltration of the liver. Status post cholecystectomy. 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 Reference Values: SRU <1.37 m/s (5.7kPa): No to mild fibrosis 1.37 m/s - 2.2 m/s: Moderate to severe fibrosis >2.2 m/s (15kPa): Significant fibrosis / cirrhosis METAVIR Score F2 or higher: 1.34 m/s (5.7kPa) F3 or higher: 1.55 m/s (7.3kPa) F4: 1.80 m/s (10kPa) * If the IQR/Med is >30%, the variance in the measurements is a large and the accuracy of the measurement may be in question. Reading Location: [facility] CC: Dr. Boby Bhakta MD; ARELY Jacinto Nurse School: Signed Normal [facility] Endocrinology Visit Reporton 10-25-2024 Endocrinology Visit Report [facility] [address] [place] [address] OFFICE VISIT Date of Service: 10/25/24 MR#: [id number] Acct: [id number] Name: ROSEANNA JONES Rep #: [id number] : 1960 Provider: Jerry Gardiner Age/Sex: 64/F Location: [facility] Status: Signed Intake Vital Signs 10/06/24 [...] Rx subcutaneous pen (Humalog KwikPen (U-100) Insulin) [facility] Medical History (Updated 10/25/24 @ 15:10 by [...] like chicken (more content not included)... 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 OV 5.25 Pt here today for f/u after endoscopy [...] and nausea/dysp (more content not included)... Normal [facility] Bedside Glucoseon 10-06-2024 FINGERSTICK GLU 191 mg/dL High 74-106 [facility] Comment on above: Result Comment: SHELBY OSULLIVAN OF PATIENT CARE PER NURSING PROTOCOL Performed By: #### L 501.080 #### [facility] Laboratory [address] [place], [address] Colonoscopy Reporton 025 Colonoscopy Report [facility] Medical Records Department [address] [place] [address] Colonoscopy Report MR#: [id number] Acct: [id number] Name: ROSEANNA JONES Rep #: [id number] : 1960 64 From: Polo Mac DO PCP: Dr. Reed Vazquez MD Status:[facility] Patient Name: Roseanna Jones Procedure Date: 10/06/2024 [...] GI office. Procedure Code(s): --- Professional --- 52686, Colonoscopy, flexible; with biopsy, single or multiple CPT copyright 2021 [employer]. All rights reserved. The codes documented in this report are preliminary and upon document photographer review may be revised to meet current compliance requirements. Polo Mac DO 10/06/2024 3:35:20 PM This report has been signed electronically. Number of Addenda: 0 Note Initiated On: 10/06/2024 3:03 PM 10/06/24 1535 Date Polo Mac DO Cosigner Signature: Date (if indicated) CC: Dr. Reed Vazquez MD; Polo Mac DO Date Dictated: 10/06/24 1503 (more content not included)... [facility] EGD Reporton 10-06-2024 EGD Report [facility] Medical Records Department [address] [place] [address] EGD Report MR#: [id number] Acct: [id number] Name: ROSEANNA JONES Rep #: [id number] : 1960 64 From: Polo Mac DO PCP: Dr. Reed Vazquez MD Status:[facility] Patient Name: Roseanna Jones Procedure Date: 10/06/2024 [...] pathology results. Procedure Code(s): --- Professional --- 05018, Small intestinal endoscopy, enteroscopy beyond second portion of duodenum, not including ileum; with biopsy, single or multiple CPT copyright 2021 [employer]. All rights reserved. The codes documented in this report are preliminary and upon document photographer review may be revised to meet current compliance requirements. Polo Mac DO 10/06/2024 3:32:36 PM This report has been signed electronically. Number of Addenda: 0 Note Initiated On: 10/06/2024 2:32 PM 10/06/24 1532 Date Polo Mac DO Cosigner Sig (more content not included)... [facility] Gl[facility] at [facility] deOrdered By: Polo Mac on 10-06-2024 Bedside Glucose (Misc Panel) 191 mg/dL High 74-106 [facility] Comment on above: MANAGEMENT OF PATIEN T CARE PER NURSING PROTOCOL Glucose [Mass/Vol] 191 mg/dL High 74-106 [facility] Comment on above: MANAGEMENT OF PATIEN T CARE PER NURSING PROTOCOL Immunohistochemical Stainson 10-06-2024 Immunohistochemical Stains Patient Age/Sex Location Account Attending Physician ROSEANNA JONES 64/F EN [id number] Polo Mac DO Specimen: [id number] Received: 10/07/24 Status: MAURO Sandhu Num: [id number] Spec Type: EGD BIOPSY Subm Dr: Polo Mac DO HEADER OPERATION: Colonoscopy, EGD with biopsy PRE-OP [...] developed and their performance characteristics determined by [facility]. They may not have been cleared or approved by the U.S. Food and Drug Administration. The FDA has determined that such clearance or approval is not necessary. The above immunohistochemical/dualIS H markers are ordered and reviewed by the Pathologist. Patient Age/Sex Location Account Attending Physician ROSEANNA JONES 64/F EN [id number] Polo Mac DO GROSS DESCRIPTION A. Received [...] in aggregate. Submitted in toto in D1. [facility] 10/13/2024 CPT:44193l8,56338a8 Patient Age/Sex Location Account Attending Physician ROSEANNA JONES 64/F YUE [id number] Polo Mac DO Signed (signature on file) Dr. Alisia Sykes MD 10/13/24 1402 Normal [facility] Comment on above: Performed By: #### P IMHI #### [facility] [address] [place], [address] MR/POSTOP.ANEon 10-06-2024 MR/POSTOP.ANE [facility] Medical Records Department [address] [place] [address] Anesthesia Postop Eval I 10/06/241532 MR#: [id number] Acct: [id number] Name: ROSEANNA JONES Rep #: [id number] : 1960 64 From: Saman Claudio PCP: Dr. Reed Vazquez MD Status:REG DEC Y Race: C Location: [place] [address] Anesthesia: Postop Eval I Current Vital Signs [...] document: Postop Eval 1 completed: Yes 10/06/241533 Date Saman Jones Signature: Date CC: Signed [facility] MR/HCOHIPIY3ao 10-06-2024 MR/POSTOPAN2 [facility] Medical Records Department [address] [place] [address] Anesthesia Postop Eval II 10/06/24 1606 MR#: [id number] Acct: [id number] Name: ROSEANNA JONES Rep #: [id number] : 1960 64 From: Chidi Bui MD PCP: Dr. Reed Vazquez MD Status:REG SDC Y Race: C Location: [place] [address] Anesthesia Postop Eval I Sum Postop Eval [...] Bui MD Cosigner Signature: Date CC: Signed [facility] MR/Jazmine 10-04-2024 [facility] Department [address] [place] [address] PAT - Anesthesia 10/04/24 1034 MR#: [id number] Acct: [id number] Name: ROSEANNA JONES Rep #: [id number] : 1960 64 From: Chidi Bui MD PCP: Dr. Reed Vazquez MD Status:PRE SDC Y Race: C Location: EN Pre-Assessment Diagnosis/Proposed Procedure Planned Operative Procedure(s): EGD/CSCOPE Anesthesia History Anesthesia History - roller man: Anesthesia History - roller man Hx Hospitalization No 10/04/24 10:15 Any Problems [...] take am of surgery PONV PONV - roller man: PONV - roller man Female Yes 10/04/24 10:15 HX of Motion [...] 01/31/22 15:37 Respiratory Assessment Respiratory Assessment - roller man: Respiratory Tract Infection Hx - roller man Hx Respiratory Tract Infection No 10/04/24 10:15 STOP Sleep Apnea STOP Sleep Apnea - roller man: STOP Sleep Apnea - roller man Hx Hypertension Yes: CONTROLLED WITH MED 10/04/24 [...] Tobacco Use History Tobacco Use History - roller man: Tobacco Use History - roller man Tobacco Use Smoking Status Never smoker 10/04/24 10:15 Hx Tobacco Use No 10/04/24 10:15 Years Smoking Packs Smoked per Day Smoking Cessation Date was within the last 15 years Hx Smoking Cessation Date Hx Smoking Cessation Counseling Hematologic Medial History Hematologic Hx - 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 [facility] BENZO CONFIRM, URINEon 09-09 7-Aminoclonazepam Confirm (U) [Mass/Vol] <25 Normal <25 [facility] Comment on above: Order Comment: Speci men Type: URINE SPECIMENOrdering Facility: [facility] Address: [address] [place] [address] Result Comment: 7-Am inoclonazepam is a metabolite of clonazepam. Performed By: #### U QNTX, UBENZ ####[facility] [id number] [address] [place] Alpha hydroxyalprazolam Confirm (U) [Mass/Vol] <25 Normal <25 [facility] Comment on above: Order Comment: Speci men Type: URINE SPECIMENOrdering Facility: [facility] Address: [address] [place] [address] Result Comment: Alph a-hydroxyalprazolam is a metabolite of alprazolam. Performed By: #### U QNTX, UBENZ ####[facility] [id number] [address] [place] [facility] Alpha hydroxytriazolam Confirm (U) [Mass/Vol] <25 Normal <25 [facility] Comment on above: Order Comment: Speci men Type: URINE SPECIMENOrdering Facility: [facility] Address: [address] [place] [address] Result Comment: Alph a-hydroxytriazolam is a metabolite of triazolam. Performed By: #### U QNTX, UBENZ ####[facility]IA [id number] [place] [address] [place] BENZO CONFIRM, NOTE Normal [facility] Comment on above: Order Comment: Speci men Type: URINE SPECIMENOrdering Facility: [facility] Address: [address] [place] [address] Result Comment: For medical purposes only. Not valid for legal or forensic purposes. This test was developed, and its performance characteristics determined by the [facility] Department of Pathology and Laboratory Medicine. It has not been cleared or approved by the FDA. The [facility] Department of Pathology and Laboratory Medicine is regulated under CLIA as qualified to perform high-complexity testing. This test is used for clinical purposes. It should not be regarded as investigational or for research. Performed By: #### U QNTX, UBENZ ####[facility] [id number] [place] [address] [place] LORazepam Confirm (U) [Mass/Vol] <25 Normal <25 [facility] Comment on above: Order Comment: Speci men Type: URINE SPECIMENOrdering Facility: [facility] Address: [address] [place] [address] Performed By: #### U QNTX, UBENZ ####[facility] [id number] [place] [address] [place] Nordiazepam Confirm (U) [Mass/Vol] <25 Normal <25 [facility] Comment on above: Order Comment: Speci men Type: URINE SPECIMENOrdering Facility: [facility] Address: [address] [place] [address] Performed By: #### U QNTX, UBENZ ####[facility] [id number] [place] [address] [place] Oxazepam Confirm (U) [Mass/Vol] <25 Normal <25 [facility] Comment on above: Order Comment: Speci men Type: URINE SPECIMENOrdering Facility: [facility] Address: [address] [place] [address] Performed By: #### U QNTX, UBENZ ####[facility] [id number] [place] [address] [place] Temazepam Confirm (U) [Mass/Vol] <25 Normal <25 [facility] Comment on above: Order Comment: Speci men Type: URINE SPECIMENOrdering Facility: [facility] Address: [address] [place] [address] Performed By: #### U QNTX, UBENZ ####[facility]CLIA [id number] [address] OF [facility] CNOVon 09-09-2024 CNOV Office Visit ([facility] ) -- ROSEANNA JONES ([id number]) 1960 F Date Time Provider Department 09/09/24 1:30 PM KATTY STEINER [facility] During your visit today, we recorded the following information about you: Pulse Respiration Blood pressure Weight 79/minute 16/minute 137/77 89.4 kg Katty Steiner, CASEY.MACHINE WHITENER 09/09/2024 2:02 PM Signed Chief Complaint: Pain History of Present Illness: Roseanna Jones is a 64 year old year old female being seen at [facility] for a evaluation and/or management of her [...] Hx of DM manuel Last uds 11/20/23-----[facility] Urine Drug Screen Summary Report Date [...] provided. For clinical consultation, please call . [facility] Urine Drug Screen and Benzo Confirm Urine Panel: No results found for: UQCANN, UQBNZL, PEG5RGY, UQAMPH, UQMAMP, UQBUPRE, UQNORBUP, UQMTHD, UQEDDP, UQTRAM, [...] (09/09/2024 1: (more content not included)... Normal [facility] QUANT TOX PANELon 09-09-2024 2-Udpbmedbwn-0,5-Dime thyl-3,3-Diphenylpyrr olidine (EDDP) Confirm (U) [Mass/Vol] <25 Normal <25 [facility] Comment on above: Order Comment: Speci men Type: URINE SPECIMEN [facility] Address: [address] [place] [address] Result Comment: 0-Lkppdkjcac-0,8-afejvarr-3,3-diphenylpyrrolidine (EDDP) is a metabolite of methadone. Performed By: #### U QNTX, UBENZ #### [facility] CLIA [id number] [address] [place] [address] [place] 6-Monoacetylmorphine (6-JACLYN) (U) [Mass/Vol] <5 Normal <5 [facility] Comment on above: Order Comment: Speci men Type: URINE SPECIMEN Ordering [facility]: [facility] Address: [address] [place] [address] Result Comment: 6-Mo noacetylmorphine is a metabolite of heroin. Performed By: #### U QNTX, UBENZ #### [facility] CLIA [id number] [address] [place] [address] [place] Amphetamine Confirm (U) [Mass/Vol] <25 Normal <25 [facility] Comment on above: Order Comment: Speci men Type: URINE SPECIMEN Ordering [facility]: [facility] Address: [address] [place] [address] Result Comment: Meth ylphenidate does not contain or metabolize to amphetamine. Performed By: #### U QNTX, UBENZ #### [facility] CLIA [id number] [address] [place] [address] [place] Benzoylecgonine Confirm (U) [Mass/Vol] <25 Normal <25 [facility] Comment on above: Order Comment: Speci men Type: URINE SPECIMEN Ordering [facility]: [facility] Address: [address] [place] [address] Result Comment: Phong oylecgonine is a metabolite of cocaine. Performed By: #### U QNTX, UBENZ #### [facility] CLIA [id number] [address] [place] [address] [place] Buprenorphine (U) [Mass/Vol] <5 Normal <5 [facility] Comment on above: Order Comment: Speci men Type: URINE SPECIMEN Ordering [facility]: [facility] Address: [address] [place] [address] Result Comment: Donna ents using transdermal formulations of buprenorphine may yield undetectable buprenorphine and norbuprenorphine urine concentrations. Performed By: #### U QNTX, UBENZ #### [facility] CLIA [id number] [address] [place] [address] [place] Carboxy tetrahydrocannabinol (U) [Mass/Vol] <10 Normal <10 [facility] Comment on above: Order Comment: Speci men Type: URINE SPECIMEN Ordering [facility]: [facility] Address: [address] [place] [address] Result Comment: 11-N yp-2-tvntqnt-tetrahydrocannabinol (bgbyy-8-xmqygqd-THC) is a metabolite of uetro-5-xlnazhrzkfswnajrffeq (THC). This test does not differentiate between delta-8 or delta-9 carboxy-THC. Performed By: #### U QNTX, UBENZ #### [facility] CLIA [id number] [address] [place] [address] [place] Codeine Confirm (U) [Mass/Vol] <25 Normal <25 [facility] Comment on above: Order Comment: Speci men Type: URINE SPECIMEN Ordering [facility]: [facility] Address: [address] [place] [address] Performed By: #### U QNTX, UBENZ #### [facility] CLIA [id number] [address] [place] [address] [place] fentaNYL Confirm (U) [Mass/Vol] 20 ng/mL High <1 [facility] Comment on above: Order Comment: Speci men Type: URINE SPECIMEN Ordering [facility]: [facility] Address: [address] [place] [address] Result Comment: Pres ence of fentanyl is consistent with use of a fentanyl-containing drug. Fentanyl is metabolized to norfentanyl. Performed By: #### U QNTX, UBENZ #### [facility] IA [id number] [address] [place] [address] [place] HYDROcodone Confirm (U) [Mass/Vol] <25 Normal <25 [facility] Comment on above: Order Comment: Speci men Type: URINE SPECIMEN Ordering [facility]: [facility] Address: [address] [place] [address] Performed By: #### U QNTX, UBENZ #### [facility] CLIA [id number] [address] [place] [address] [place] HYDROmorphone Confirm (U) [Mass/Vol] <25 Normal <25 [facility] Comment on above: Order Comment: Speci men Type: URINE SPECIMEN Ordering [facility]: [facility] Address: [address] [place] [address] Performed By: #### U QNTX, UBENZ #### [facility] CLIA [id number] [address] [place] [address] [place] MDA, UR <25 Normal <25 [facility] Comment on above: Order Comment: Speci men Type: URINE SPECIMEN Ordering Facility: [facility] Address: [address] [place] [address] Result Comment: 3,4 Methylenedioxyamphetamine is also known as MDA. Performed By: #### U QNTX, UBENZ #### [facility] CLIA [id number] [address] [place] [address] [place] MDEA, UR <25 Normal <25 [facility] Comment on above: Order Comment: Speci men Type: URINE SPECIMEN Ordering Facility: [facility] Address: [address] [place] [address] Result Comment: 3,4 Vbljevzlxhqxxp-P-avkxyilwuqldnlqd is also known as MDEA. Performed By: #### U QNTX, UBENZ #### [facility] CLIA [id number] [address] [place] [address] [place] MDMA, UR <25 Normal <25 [facility] Comment on above: Order Comment: Speci men Type: URINE SPECIMEN Ordering [facility]: [facility] Address: [address] [place] [address] Result Comment: 3,4- Methylenedioxymethamphetamine is also known as MDMA. Performed By: #### U QNTX, UBENZ #### [facility] CLIA [id number] [address] [place] [address] [place] Methadone Confirm (U) [Mass/Vol] <25 Normal <25 [facility] Comment on above: Order Comment: Speci men Type: URINE SPECIMEN Ordering [facility]: [facility] Address: [address] [place] [address] Performed By: #### U QNTX, UBENZ #### [facility] CLIA [id number] [address] [place] [address] [place] Methamphetamine Confirm (U) [Mass/Vol] <25 Normal <25 [facility] Comment on above: Order Comment: Speci men Type: URINE SPECIMEN Ordering [facility]: [facility] Address: [address] [place] [address] Performed By: #### U QNTX, UBENZ #### [facility] CLIA [id number] [address] [place] [address] [place] Morphine Confirm (U) [Mass/Vol] <25 Normal <25 [facility] Comment on above: Order Comment: Speci men Type: URINE SPECIMEN Ordering [facility]: [facility] Address: [address] [place] [address] Performed By: #### U QNTX, UBENZ #### [facility] CLIA [id number] [address] [place] [address] [place] [facility] Norbuprenorphine (U) [Mass/Vol] <10 Normal <10 [facility] Comment on above: Order Comment: Speci men Type: URINE SPECIMEN Ordering [facility]: [facility] Address: [address] [place] [address] Result Comment: Norb uprenorphine is a metabolite of buprenorphine. Patients using transdermal formulations of buprenorphine may yield undetectable buprenorphine and norbuprenorphine urine concentrations. Performed By: #### U QNTX, UBENZ #### [facility] CLIA [id number] [address] [place] [address] [place] Norfentanyl Confirm (U) [Mass/Vol] 16 ng/mL High <1 [facility] Comment on above: Order Comment: Speci men Type: URINE SPECIMEN Ordering Facility: [facility] Address: [address] [place] [address] Result Comment: Norf entanyl is a metabolite of fentanyl. Presence of norfentanyl is consistent with use of a fentanyl-containing drug. Performed By: #### U QNTX, UBENZ #### [facility] CLIA [id number] [address] [place], [place] [id number] [place] NORHYDROCODONE, UR <25 Normal <25 [facility] Comment on above: Order Comment: Speci men Type: URINE SPECIMEN Ordering Facility: [facility] Address: [address] [place] [address] Result Comment: Norh ydrocodone is a metabolite of hydrocodone. Performed By: #### U QNTX, UBENZ #### [facility] CLIA [id number] [address] [place] [address] [place] NOROXYCODONE, UR <25 Normal <25 [facility] Comment on above: Order Comment: Speci men Type: URINE SPECIMEN Ordering Facility: [facility] Address: [address] [place] [address] Result Comment: Noro xycodone is a metabolite of oxycodone. Performed By: #### U QNTX, UBENZ #### [facility] CLIA [id number] [address] [place] [address] [place] NOROXYMORPHONE, UR <25 Normal <25 [facility] Comment on above: Order Comment: Speci men Type: URINE SPECIMEN Ordering Facility: [facility] Address: [address] [place] [address] Result Comment: Noro xymorphone is a metabolite of oxymorphone and oxycodone and a minor metabolite of naltrexone and naloxone. Performed By: #### U QNTX, UBENZ #### [facility] CLIA [id number] [address] [place] [address] [place] Nortramadol (U) [Mass/Vol] <25 Normal <25 [facility] Comment on above: Order Comment: Speci men Type: URINE SPECIMEN Ordering Facility: [facility] Address: [address] [place] [address] Result Comment: O-de smethyltramadol is a metabolite of tramadol. Performed By: #### U QNTX, UBENZ #### [facility] CLIA [id number] [address] [place] [address] [place] NOTE, UR TOXICOLOGY PANEL Normal [facility] Comment on above: Order Comment: Speci men Type: URINE SPECIMEN Ordering Facility: [facility] Address: [address] [place] [address] Result Comment: For medical purposes only. Not valid for legal or forensic purposes. This test was developed, and its performance characteristics determined by the [facility] Department of Pathology and Laboratory Medicine. It has not been cleared or approved by the FDA. The [facility] Department of Pathology and Laboratory Medicine is regulated under CLIA as qualified to perform high-complexity testing. This test is used for clinical purposes. It should not be regarded as investigational or for research. Performed By: #### U QNTX, UBENZ #### [facility] CLIA [id number] [address] [place] [address] [place] oxyCODONE Confirm (U) [Mass/Vol] <25 Normal <25 [facility] Comment on above: Order Comment: Speci men Type: URINE SPECIMEN Ordering Facility: [facility] Address: [address] [place] [address] Performed By: #### U QNTX, UBENZ #### [facility] CLIA [id number] [address] [place] [address] [place] oxyMORphone Confirm (U) [Mass/Vol] <25 Normal <25 [facility] Comment on above: Order Comment: Speci men Type: URINE SPECIMEN Ordering Facility: [facility] Address: [address] [place] [address] Performed By: #### U QNTX, UBENZ #### [facility] CLIA [id number] [address] [place] [address] [place] Phencyclidine Confirm (U) [Mass/Vol] <10 Normal <10 [facility] Comment on above: Order Comment: Speci men Type: URINE SPECIMEN Ordering Facility: [facility] Address: [address] [place] [address] Result Comment: Phen cyclidine is also known as PCP. Performed By: #### U QNTX, UBENZ #### [facility] CLIA [id number] [address] [place] [address] [place] PHENTERMINE, UR <25 Normal <25 [facility] Comment on above: Order Comment: Speci men Type: URINE SPECIMEN Ordering Facility: [facility] Address: [address] [place] [address] Performed By: #### U QNTX, UBENZ #### [facility] CLIA [id number] [address] [place] [address] [place] traMADol Confirm (U) [Mass/Vol] <25 Normal <25 [facility] Comment on above: Order Comment: Speci men Type: URINE SPECIMEN Ordering Facility: [facility] Address: [address] [place] [address] Performed By: #### U QNTX, UBENZ #### [facility] CLIA [id number] [address] [place] [address] [place] SPECIMEN VALIDITY, URINEon 0 - CREATININE,URINE 58.8 mg/dL Normal 20.0-300.0 [facility] Comment on above: Order Comment: Speci men Type: URINE SPECIMEN Ordering Facility: [facility] Address: [address] [place] [address] Performed By: #### L [id number] #### [facility] CLIA [id number] [address] [place] [address] [place] CREATININE,URINE 58.6 mg/dL Normal 20.0-300.0 [facility] Comment on above: Order Comment: Speci men Type: URINE SPECIMEN Ordering Facility: [facility] Address: [address] [place] [address] Performed By: #### L [id number] #### [facility] CLIA [id number] [address] [place] [address] [place] NITRITES,URINE <50 Normal <500 [facility] Comment on above: Order Comment: Speci men Type: URINE SPECIMEN Ordering Facility: [facility] Address: [address] [place] [address] Performed By: #### L [id number] #### [facility] CLIA [id number] [address] [place] [address] [place] OXIDANTS,URINE 46 mg/L Normal <200 [facility] Comment on above: Order Comment: Speci men Type: URINE SPECIMEN Ordering Facility: [facility] Address: [address] [place] [address] Performed By: #### L [id number] #### [facility] CLIA [id number] [address] [place] [address] [place] pH (U) 5.3 [pH] Normal 4.5-8.0 [facility] Comment on above: Order Comment: Speci men Type: URINE SPECIMEN Ordering Facility: [facility] Address: [address] [place] [address] Performed By: #### L [id number] #### [facility] CLIA [id number] [address] [place] [address] [place] SPEC GRAVITY,UR 1.020 Normal 1.003-1.03 5 [facility] Comment on above: Order Comment: Speci men Type: URINE SPECIMEN Ordering Facility: [facility] Address: [address] [place] [address] Performed By: #### L [id number] #### [facility] CLIA [id number] [address] [place] [address] [place] SPECIMEN VALIDITY QUALITY Specimen quality results within acceptable limits Normal [facility] Comment on above: Order Comment: Speci men Type: URINE SPECIMEN Ordering Facility: [facility] Address: [address] [place] [address] Performed By: #### L [id number] #### [facility] CLIA [id number] [address] [place] [address] [place] XR CERVICAL 4V AP/LAT/OBLon [...] bridging osteophyte formation. The findings have progressed. Nurse School: [employer] Transcribe Date/Time: Sep 16 2024 8:47A Dictated by : PROSPER ARCHULETA MD This examination was interpreted and the report reviewed and electronically signed by: PROSPER ARCHULETA MD on Sep 16 2024 8:48AM EST [id number] Normal [facility] Gastroenterology Visit Repor ton 08-11-2024 Gastroenterology Visit Report [facility]astroenterology [address] [place] [address] OFFICE VISIT Date of Service: 08/11/24 MR#: [id number] Acct: [id number] Name: ROSEANNA JONES Rep #: [id number] : 1960 Provider: ARELY Jacinto Age/Sex: 64/F Location: [facility].I Status: Signed Intake Vital Signs 01/31/22 15:37 Height 5 ft 7 in Intake Visit Reasons: Gastroparesis Chief Complaint: LUQ pain [employer] Supervisor Required: No Allergies indomethacin (From Indocin) Allergy [...] have celiac as well. Takes metformin daily. [facility] Medical History (Updated 08/11/24 @ 13:50 by [...] Musculoskeletal: Pos (more content not included)... Normal [facility] Celiac AB,Comprehensiveon ANTIGLIADIN IGA 10 units Normal 0-19 [facility] Comment on above: Order Comment: Order Date: 07/08/24 Order Info: 075- - CELAB Result Comment: Nega tive 0 - 19 Weak Positive 20 - 30 Moderate to Strong Positive >30 Performed By: #### L 3410.2350 #### [facility] [address] [place] [id number] ANTIGLIADIN IGG 3 units Normal 0-19 [facility] Comment on above: Order Comment: Order Date: 07/08/24 Order Info: 075- - CELAB Result Comment: Nega tive 0 - 19 Weak Positive 20 - 30 Moderate to Strong Positive >30 Performed By: #### L 3410.2350 #### [facility] [address] [place] [id number] ENDOMYSIAL IGA Negative Normal Negative [facility] Comment on above: Order Comment: Order Date: 07/08/24 Order Info: [id number] - CELAB Performed By: #### L 3410.2350 #### [facility] [address] [place] [address] IMMUNOGLOB A QN 646 mg/dL High 87-352 [facility] Comment on above: Order Comment: Order Date: 07/08/24 Order Info: 0751-1 - CELAB Result Comment: Perf ormed at: - [facility] [address] [id number] [place] Supervisor: John House PhD, Phone: [phone] Performed By: #### L 3410.2350 #### [facility] [address] [place] [id number] tTG IGA <2 Normal 0-3 [facility] Comment on above: Order Comment: Order Date: 07/08/24 Order Info: 0751-1 - CELAB Result Comment: Nega tive 0 - 3 Weak Positive 4 - 10 Positive >10 Tissue Transglutaminase (tTG) has been identified as the endomysial antigen. Studies have demonstr- ated that endomysial IgA antibodies have over 99% specificity for gluten sensitive enteropathy. Performed By: #### L 3410.2350 #### [facility] [address] [place], [place], [address] tTG IGG 3 U/mL Normal 0-5 [facility] Comment on above: Order Comment: Order Date: 07/08/24 Order Info: 0751-1 - CELAB Result Comment: Nega tive 0 - 5 Weak Positive 6 - 9 Positive >9 Performed By: #### L 3410.2350 #### [facility] [address] [place], [address] Deamidated gliadin IgA antib becki assayOrdered By: Reed Vazquez on 07-15-2024 Anti-Gliadin IgA Antibody 10 units 0-19 [facility] Comment on above: Negative 0 - 19 Weak Positive 20 - 30 Moderate to Strong Positive >30 Deamidated gliadin IgG antib becki assayOrdered By: Reed Vazquez on 07-15-2024 Anti-Gliadin IgG Antibody 3 units 0-19 [facility] Comment on above: Negative 0 - 19 Weak Positive 20 - 30 Moderate to Strong Positive >30 Endomysial IgA antibody assa yOrdered By: Reed Vazquez on 07-15-2024 Endomysial IgA Antibody Negative Negative [facility] No Panel InformationOrdered By: Reed Vazquez on 07-15-2024 Tissue Transglutaminase IgG Ab 3 U/mL 0-5 [facility] Comment on above: Negative 0 - 5 Weak Positive 6 - 9 Positive >9 Serum immunoglobulin A measu rementOrdered By: Reed Vazquez on 07-15-2024 Immunoglobulin A 646 mg/dL High 87-352 [facility] Comment on above: Performed at: [facility] [address] [id number] Director: John House PhD, Phone: [phone] tTG IgA Qn (S)Ordered By: Arely Vazquez on 07-15-2024 Tissue Transglutaminase IgA Ab <2 U/mL 0-3 [facility] Comment on above: Negative 0 - 3 Weak Positive 4 - 10 Positive >10 Tissue Transglutaminase (tTG) has been identified as the endomysial antigen. Studies have demonstr- ated that endomysial IgA antibodies have over 99% specificity for gluten sensitive enteropathy. Albumin to globulin ratioOrd ered By: Rede Vazquez on 07-08-2024 Albumin/Globulin [Mass ratio] 0.8 {ratio} Low 0.9-2.4 [facility] Bilirubin, totalOrdered By: Reed Vazquez on 07-08-2024 Bilirubin [Mass/Vol] 0.70 mg/dL 0.20-1.[address] [facility] Comment on above: For patients on eltr ombopag therapy, use of Dimension [place] TBIL is not recommended. Blood urea nitrogen (BUN)/cr eatinine ratioOrdered By: Reed Vazquez on 07-08-2024 Urea nitrogen/Creatinine [Mass ratio] 14.5 mg/mg 10-20 [facility] Carbon dioxide measurementOr dered By: Reed Vazquez on 07-08-2024 CO2 [Moles/Vol] 27.0 mmol/L 21.0-32.0 [facility] Chloride measurementOrdered By: Reed Vazquez on 07-08-2024 Chloride [Moles/Vol] 101 mmol/L 98-[address] [facility] Comprehensive Metabolic Prof ilon 07-08-2024 Albumin [Mass/Vol] 3.7 g/dL Normal 3.2-5.0 [facility] Comment on above: Order Comment: LIPID Performed By: #### L 500.0620, L500.4050 #### [facility] [address] [place], [address] Albumin/Globulin [Mass ratio] 0.8 {ratio} Low 0.9-2.4 [facility] Comment on above: Order Comment: LIPID Performed By: #### L 500.4100, L500.4050 #### [facility] [address] [place], [address] ALK P 90 U/L Normal 45-117 [facility] Comment on above: Order Comment: LIPID Performed By: #### L 500.4100, L500.4050 #### [facility] [address] [place], [address] ALT [Catalytic activity/Vol] 49 U/L Normal 13-56 [facility] Comment on above: Order Comment: LIPID Performed By: #### L 500.4100, L500.4050 #### [facility] [address] [place], [address] AST [Catalytic activity/Vol] 50 U/L High 15-37 [facility] Comment on above: Order Comment: LIPID Performed By: #### L 500.4100, L500.4050 #### [facility] [address] [place], [address] Bilirubin [Mass/Vol] 0.70 mg/dL Normal 0.20-1.[address] [facility] Comment on above: Order Comment: LIPID Result Comment: For patients on eltrombopag therapy, use of Dimension [place] TBIL is not recommended. Performed By: #### L 500.4100, L500.4050 #### [facility] [address] [place], [address] BUN/CRE 14.5 RATIO Normal 10-20 [facility] Comment on above: Order Comment: LIPID Performed By: #### L 500.4100, L500.4050 #### [facility] [address] [place], [address] CA,Total 9.4 mg/dL Normal 8.5-10.1 [facility] Comment on above: Order Comment: LIPID Performed By: #### L 500.4100, L500.4050 #### [facility] [address] [place], [address] Chloride [Moles/Vol] 101 mmol/L Normal 98-[address] [facility] Comment on above: Order Comment: LIPID Performed By: #### L 500.4100, L500.4050 #### [facility] [address] [place], [address] CO2 [Moles/Vol] 27.0 mmol/L Normal 21.0-32.0 [facility] Comment on above: Order Comment: LIPID Performed By: #### L 500.4100, L500.4050 #### [facility] [address] [place], [address] Creatinine [Mass/Vol] 0.76 mg/dL Normal 0.55-1.02 [facility] Comment on above: Order Comment: LIPID Result Comment: The validity of the calculated GFR GFRAA in patients over 70 years has not been determined. Clinical correlation is essential. Performed By: #### L 500.4100, L500.4050 #### [facility] [address] [place], [address] EST GFR - AA 99 mL/min Normal >60 [facility] Comment on above: Order Comment: LIPID Result Comment: Afri can Estonian GFR Calc Performed By: #### L 500.4100, L500.4050 #### [facility] [address] [place], [address] GAP 9 Normal 5-15 [facility] Comment on above: Order Comment: LIPID Performed By: #### L 500.4100, L500.4050 #### [facility] [address] [place], [address] GFR/1.73 sq M.predicted among non-blacks MDRD (S/P/Bld) [Vol rate/Area] 82 mL/min/{1.73_m2} Normal >60 [facility] Comment on above: Order Comment: LIPID Result Comment: Non- GFR Calc Performed By: #### L 500.4100, L500.4050 #### [facility] [address] [place], [address] Globulin (S) [Mass/Vol] 4.4 g/dL High 2.2-4.2 [facility] Comment on above: Order Comment: LIPID Performed By: #### L 500.4100, L500.4050 #### [facility] [address] [place], [address] Glucose [Mass/Vol] 267 mg/dL High 74-106 [facility] Comment on above: Order Comment: LIPID Result Comment: Gluc ose result greater than or equal to 200 mg/dL suggests DIABETES MELLITUS per A.D.A. criteria. Performed By: #### L 500.4100, L500.4050 #### [facility] [address] [place], [address] Potassium [Moles/Vol] 4.0 mmol/L Normal 3.5-5.1 [facility] Comment on above: Order Comment: LIPID Performed By: #### L 500.4100, L500.4050 #### [facility] [address] [place], [address] Sodium [Moles/Vol] 137 mmol/L Normal 136-145 [facility] Comment on above: Order Comment: LIPID Performed By: #### L 500.4100, L500.4050 #### [facility] [address] [place], [address] T PROT 8.1 g/dL Normal 6.4-8.2 [facility] Comment on above: Order Comment: LIPID Performed By: #### L 500.4100, L500.4050 #### [facility] [address] [place], [address] Urea nitrogen [Mass/Vol] 11 mg/dL Normal 7-18 [facility] Comment on above: Order Comment: LIPID Performed By: #### L 500.4100, L500.4050 #### [facility] [address] [place], [place], [address] Estimated glomerular filtrat ion rate (GFR) AmericanOrdered By: Reed Vazquez on 07-08-2024 Estimated GFR (MDRD) Amer 99 mL/min >60 [facility] Comment on above: GFR Calc Glomerular filtration rate ( GFR) estimationOrdered By: Reed Vazquez on 07-08-2024 Estimated GFR (MDRD) Non-Af Amer 82 mL/min >60 [facility] Comment on above: Non- GFR Calc Glucose measurementOrdered B y: Reed Vazquez on 07-08-2024 Glucose [Mass/Vol] 267 mg/dL High 74-106 [facility] Comment on above: Glucose result great er than or equal to 200 mg/dLsuggests DIABETES MELLITUS per A.D.A. criteria. High density lipoprotein (HD L) measurementOrdered By: Reed Vazquez on 07-08-2024 Cholesterol in HDL [Mass/Vol] 40 mg/dL >40 [facility] Comment on above: The drugs N-Acetylcy steine and Metamizole may falsely depress this assay. Reference Range HDL <40 mg/dL Low HDL Cholesterol HDL >or= 60 mg/dL High HDL Cholesterol Laboratory - Chemistry and C hemistry - challengeOrdered By: Reed Vazquez on 07-08-2024 AST [Catalytic activity/Vol] 50 U/L High 15-37 [facility] Lipid Profileon 07-08-2024 Cholesterol [Mass/Vol] 129 mg/dL Normal 200 [facility] Comment on above: Order Comment: LIPID Result Comment: <200 mg/dL Desirable 200-240 mg/dL Borderline >240 mg/dL High Risk Performed By: #### L 500.4100, L500.4050 #### [facility] [address] [place], [place], [id number] Cholesterol in HDL [Mass/Vol] 40 mg/dL Normal [facility] Comment on above: Order Comment: LIPID Result Comment: The drugs N-Acetylcysteine and Metamizole may falsely depress this assay. Reference Range HDL <40 mg/dL Low HDL Cholesterol HDL >or= 60 mg/dL High HDL Cholesterol Performed By: #### L 500.4100, L500.4050 #### [facility] [address] [place], [address] Cholesterol in LDL [Mass/Vol] 53 mg/dL Normal 0-130 [facility] Comment on above: Order Comment: LIPID Performed By: #### L 500.4100, L500.4050 #### [facility] [address] [place], [address] Cholesterol in VLDL [Mass/Vol] 36 mg/dL Normal 5-40 [facility] Comment on above: Order Comment: LIPID Performed By: #### L 500.4100, L500.4050 #### [facility] [address] [place], [address] Triglyceride [Mass/Vol] 180 mg/dL Normal [facility] Comment on above: Order Comment: LIPID Result Comment: The drugs N-Acetylcysteine and Metamizole may falsely depress this assay. Serum Triglycerides Reference Interval Normal <150 mg/dL Borderline high 150 - 199 mg/dL High 200 - 499 mg/dL Very High > or = 500 mg/dL Performed By: #### L 500.4100, L500.4050 #### [facility] [address] [place], [address] Low density lipoprotein (LDL ) cholesterol measurementOrdered By: Reed Vazquez on 07-08-2024 Cholesterol in LDL [Mass/Vol] 53 mg/dL 0-130 [facility] Potassium measurementOrdered By: Reed Vazquez on 07-08-2024 Potassium [Moles/Vol] 4.0 mmol/L 3.5-5.1 [facility] Serum anion gap measurementO rdered By: Reed Vazquez on 07-08-2024 Anion gap [Moles/Vol] 9 mmol/L 5-15 [facility] Serum globulin measurementOr dered By: Reed Vazquez on 07-08-2024 Globulin (S) [Mass/Vol] 4.4 g/dL High 2.2-4.2 [facility] Serum or plasma alanine rosa otransferase (ALT) measurementOrdered By: Reed Vazquez on 07-08-2024 ALT [Catalytic activity/Vol] 49 U/L 13-56 [facility] Serum or plasma albumin abril urement (mass/volume)Ordered By: Reed Vazquez on 07-08-2024 Albumin [Mass/Vol] 3.7 g/dL 3.2-5.0 [facility] Serum or plasma alkaline teresa sphatase measurementOrdered By: Reed Vazquez on 07-08-2024 ALP [Catalytic activity/Vol] 90 U/L 45-117 [facility] Serum or plasma calcium abril urement (mass/volume)Ordered By: Reed Vazquez on 07-08-2024 Calcium [Mass/Vol] 9.4 mg/dL 8.5-10.1 [facility] Serum or plasma cholesterol measurement (mass/volume)Ordered By: Reed Vazquez on 07-08-2024 Cholesterol [Mass/Vol] 129 mg/dL <200 [facility] Comment on above: <200 mg/dL Desirable 200-240 mg/dL Borderline >240 mg/dL High Risk Serum or plasma creatinine m easurement (mass/volume)Ordered By: Reed Vazquez on 07-08-2024 Creatinine [Mass/Vol] 0.76 mg/dL 0.55-1.02 [facility] Comment on above: The validity of the calculated GFR & GFRAA in patients over 70 years has not been determined. Clinical correlation is essential. Serum or plasma urea nitroge n measurement (mass/volume)Ordered By: Reed Vazquez on 07-08-2024 Urea nitrogen [Mass/Vol] 11 mg/dL 7-18 [facility] Sodium levelOrdered By: Reed Vazquez on 07-08-2024 Sodium [Moles/Vol] 137 mmol/L 136-145 [facility] Total proteinOrdered By: Zuleika Vazquez on 07-08-2024 Protein [Mass/Vol] 8.1 g/dL 6.4-8.2 [facility] Triglycerides measurementOrd ered By: Reed Vazquez on 07-08-2024 Triglyceride [Mass/Vol] 180 mg/dL <199 [facility] Comment on above: The drugs N-Acetylcy steine and Metamizole may falsely depress this assay.Serum Triglycerides Reference Interval Normal <150 mg/dL Borderline high 150 - 199 mg/dL High 200 - 499 mg/dL Very High > or = 500 mg/dL Very low density lipoprotein (VLDL) cholesterol measurementOrdered By: Reed Vazquez on 07-08-2024 VLDL Cholesterol 36 mg/dL 5-40 [facility] CNOVon 04-13-2024 CN Office Visit ([facility] -- ROSEANNA JONES ([id number]) 1960 F Date Time Provider Department 04/13/24 2:00 PM KATTY STEINER [facility] During your visit today, we recorded the following information about you: Pulse Blood pressure Weight 82/minute 124/82 86.2 kg Katty Steiner APRN.CNP 04/13/2024 2:17 PM Signed Chief Complaint: Pain History of Present Illness: Roseanna Jones is a 63 year old year old female being seen at [facility] for a evaluation and/or [...] category includes hobbies, (more content not included)... [facility] Basophil percentageOrdered B y: Clemente Randhawa on 09-03-2023 Bilirubin [Mass/Vol] 0.50 mg/dL 0.20-1.[address] [facility] Comment on above: For patients on eltr ombopag therapy, use of Dimension [place] TBIL is not recommended. Chloride [Moles/Vol] 102 mmol/L 98-[address] [facility] Cholesterol [Mass/Vol] 213 mg/dL <200 [facility] Comment on above: <200 mg/dL Desirable 200-240 mg/dL Borderline >240 mg/dL High Risk Glucose [Mass/Vol] 214 mg/dL 74-106 [facility] Comment on above: Glucose result great er than or equal to 200 mg/dLsuggests DIABETES MELLITUS per A.D.A. criteria. Hemoglobin (Bld) [Mass/Vol] 14.1 g/dL 12.0-15.0 [facility] Potassium [Moles/Vol] 3.7 mmol/L 3.5-5.1 [facility] Protein [Mass/Vol] 8.1 g/dL 6.4-8.2 [facility] Sodium [Moles/Vol] 138 mmol/L 136-145 [facility] Triglyceride [Mass/Vol] 249 mg/dL <199 [facility] Comment on above: The drugs N-Acetylcy steine and Metamizole may falsely depress this assay.Serum Triglycerides Reference Interval Normal <150 mg/dL Borderline high 150 - 199 mg/dL High 200 - 499 mg/dL Very High > or = 500 mg/dL WBC (Bld) [#/Vol] 7.5 10*3/uL 4.4-11.0 [facility] Determination of erythrocyte mean corpuscular volume (MCV)Ordered By: Clemente Randhawa on 09-03-2023 MCV (RBC) [Entitic vol] 94.2 fL 81-99 [facility] Erythrocyte distribution wid th ratioOrdered By: Clemente Randhawa on 09-03-2023 Erythrocyte distribution width (RBC) [Ratio] 12.5 % 11.6-14.6 [facility] Erythrocyte distribution wid th standard deviationOrdered By: Clemente Randhawa on 09-03-2023 Erythrocyte distribution width (RBC) [Entitic vol] 43.4 fL 35.1-43.9 [facility] Hematocrit Auto (Bld) [Volum e fraction]Ordered By: Clemente Randhawa on 09-03-2023 Hematocrit (Bld) [Volume fraction] 43.9 % 37-47 [facility] Laboratory - Chemistry and C hemistry - challengeOrdered By: Clemente Randhawa on 09-03-2023 Albumin/Globulin [Mass ratio] 0.9 {ratio} 0.9-2.4 [facility] ALP [Catalytic activity/Vol] 110 U/L 45-117 [facility] ALT [Catalytic activity/Vol] 41 U/L 13-56 [facility] Cholesterol in HDL [Mass/Vol] 35 mg/dL >40 [facility] Comment on above: The drugs N-Acetylcy steine and Metamizole may falsely depress this assay. Reference Range HDL <40 mg/dL Low HDL Cholesterol HDL >or= 60 mg/dL High HDL Cholesterol Cholesterol in LDL [Mass/Vol] 128 mg/dL 0-130 [facility] CO2 [Moles/Vol] 30.0 mmol/L 21.0-32.0 [facility] Cobalamin (Vitamin B12) [Mass/Vol] 318 pg/mL 211-911 [facility] Globulin (S) [Mass/Vol] 4.3 g/dL 2.2-4.2 [facility] Urea nitrogen/Creatinine [Mass ratio] 21.8 mg/mg 10-20 [facility] Laboratory - Hematology and Cell countsOrdered By: Clemente Randhawa on 09-03-2023 MCH (RBC) [Entitic mass] 30.3 pg 27.0-32.0 [facility] MCHC (RBC) [Mass/Vol] 32.1 g/dL 32-36 [facility] Platelet mean volume (Bld) [Entitic vol] 13.4 fL 6.2-12.0 [facility] Platelets (Bld) [#/Vol] 189 10*3/uL 150-450 [facility] No Panel InformationOrdered By: Clemente Randhawa on 09-03-2023 Estimated GFR (MDRD) Amer 131 mL/min >60 [facility] Comment on above: GFR Calc Estimated GFR (MDRD) Non-Af Amer 108 mL/min >60 [facility] Comment on above: Non- GFR Calc VLDL Cholesterol 50 mg/dL 5-40 [facility] RBC Auto (Bld) [#/Vol]Ordere d By: Clemente Randhawa on 09-03-2023 RBC (Bld) [#/Vol] 4.66 10*6/uL 4.2-5.4 [facility] Serum or plasma calcium abril urement (mass/volume)Ordered By: Clemente Randhawa on 09-03-2023 Calcium [Mass/Vol] 9.0 mg/dL 8.5-10.1 [facility] Serum or plasma creatinine m easurement (mass/volume)Ordered By: Clemente Randhawa on 09-03-2023 Creatinine [Mass/Vol] 0.60 mg/dL 0.55-1.02 [facility] Comment on above: The validity of the calculated GFR & GFRAA in patients over 70 years has not been determined. Clinical correlation is essential. Serum or plasma thyroid stim ulating hormone (TSH) measurement (units/volume)Ordered By: Clemente Randhawa on 09-03-2023 TSH Qn 2.81 uIU/mL 0.358-3.74 [facility] Serum or plasma urea nitroge n measurement (mass/volume)Ordered By: Clemente Randhawa on 09-03-2023 Urea nitrogen [Mass/Vol] 13 mg/dL 7-18 [facility] Thin prep Papanicolaou smear with manual screeningOrdered By: Clemente Randhawa on 09-03-2023 Thin prep Papanicolaou smear with manual screening 3.8 g/dL 3.2-5.0 [facility] Thin prep Papanicolaou smear with manual screening 48 U/L 15-37 [facility] Thin prep Papanicolaou smear with manual screening 6 5-15 [facility] CNPNon 05-14-2023 CNPN Telephone (FAMPWS) -- ROSEANNA JONES ([id number]) 1960 F Date Time Provider Department 05/14/23 MARIEL FLORES During your visit today, we recorded the following information about you: Donn Javed 05/14/2023 2:50 PM Signed Patient verified by name and . She is requesting to have her MRI from 03/25/23 burned onto a disc. Please advise patient when its ready for peanut picker. Mariel Flores, DENNYS 05/15/2023 3:03 PM Signed CD READY FOR HIDE WASHER AT [facility] RADIOLOGY LM FOR PT Allergies As of Date: 05/14/2023 Noted Allergy Reaction ACETAZOLAMIDE 12/24/2017 14 - Other: See Comments PIOGLITAZONE 02/25/2017 14 - Other: See Comments AMITRIPTYLINE 01/23/2022 14 - Other: See Comments BIAXIN (CLARITHROMYCIN) 03/26/2006 INDOCIN (INDOMETHACIN SODIUM) 03/26/2006 PENICILLINS 03/26/2006 CANAGLIFLOZIN 01/23/2022 14 - Other: See Comments Date Reviewed: 05/14/2023 Reviewed by: Katty Steiner APRN.MACHINE WHITENER - Fully Assessed Reason for Visit: Patient Question [1477] Prescriptions as of 10/24/2023 - fentaNYL (DURAGESIC) [...] 03/20/2016 ESOPHAGEAL REFLUX [K21.9] DISC DEGENERATION NOS [[id number]] ABDOMINAL PAIN GENERALIZED [R10.84] DIARRHEA NOS [R19.7] [...] Status:Closed by DONN JAVED on 10/24/23 Normal [facility] CRP [Mass/Vol] 0.5 mg/dL Normal <0.9 [facility] Comment on above: Order Comment: Speci men Type: BLOOD SPECIMEN Ordering Facility: [facility] Address: [address] [place] [address] Performed By: #### 1 988-5, 64179-2 #### [facility] CLIA [id number] [address] [facility] [address] [place] ESR Westergren method (Bld) [Velocity]on 03-25-2023 ESR (Bld) [Velocity] 10 mm/h Normal 0-20 [facility] Comment on above: Order Comment: Speci men Type: BLOOD SPECIMEN Ordering Facility: [facility] Address: [address] [place] [address] Performed By: #### 4 537-7 #### [facility] CLIA [id number] [address] [facility] [address] [place] MRI LUMBAR SPINE WO/W IVCONo n 03-25-2023 MRI LUMBAR SPINE WO/W IVCON * * *Final Report* * * DATE OF EXAM: Mar 25 2023 1:20PM WRM 0304 - MRI LUMBAR SPINE WO/W IVCON [...] on the prior MRI. Anatomic Lumbar Variant: Nurse School: [employer] Transcribe Date/Time: Mar 25 2023 2:13P Dictated by : LAN ATWOOD MD This examination was interpreted and the report reviewed and electronically signed by: LAN ATWOOD MD on Mar 25 2023 2:47PM EST [id number] Normal [facility] Rheumatoid fact SerPl-aCncon 03-25-2023 Rheumatoid factor Qn [IU]/mL Normal <16 [facility] Comment on above: Order Comment: Speci men Type: BLOOD SPECIMEN Ordering Facility: [facility] Address: [address] [place] [address] Performed By: #### 1 988-5, 56194-3 #### [facility] CLIA [id number] [address] [facility] [place] [place] [address] [place] Basophil percentageon 2021 WBC (Bld) [#/Vol] 10.5 10*3/uL 4.4-11.0 [facility] Work Phone: Blood erythrocytes count (nu mber/volume)on 11-19-2021 RBC (Bld) [#/Vol] 4.93 10*6/uL 4.2-5.4 [facility] Work Phone: Blood hemoglobin measurement (mass/volume)on 11-19-2021 Hemoglobin (Bld) [Mass/Vol] 15.2 g/dL 12.0-15.0 [facility] Work Phone: Blood platelet mean volumeon 11-19-2021 Platelet mean volume (Bld) [Entitic vol] 12.0 fL 6.2-12.0 [facility] Work Phone: Determination of erythrocyte mean corpuscular volume (MCV)on 11-19-2021 MCV (RBC) [Entitic vol] 93.7 fL 81-99 [facility] Work Phone: Erythrocyte sedimentation ra anita 11-19-2021 ESR (Bld) [Velocity] 12 mm/h 0-[address] [facility] Work Phone: Hematocrit Auto (Bld) [Volum e fraction]on 11-19-2021 Hematocrit (Bld) [Volume fraction] 46.2 % 37-47 [facility] Work Phone: Iron measurement (mass/mass) on 11-19-2021 Iron (Unsp spec) [Mass/Mass] 89 ug/dL 50-170 [facility] Work Phone: Laboratory - Chemistry and C hemistry - challengeon 11-19-2021 Magnesium [Mass/Vol] 1.7 mg/dL 1.6-2.[address] [facility] Work Phone: Laboratory - Hematology and Cell countson 11-19-2021 Erythrocyte distribution width (RBC) [Entitic vol] 43.0 fL 35.1-43.9 [facility] Work Phone: Erythrocyte distribution width (RBC) [Ratio] 12.5 % 11.6-14.6 [facility] Work Phone: MCH (RBC) [Entitic mass] 30.8 pg 27.0-32.0 [facility] Work Phone: MCHC Auto (RBC) [Mass/Vol]on 11-19-2021 MCHC (RBC) [Mass/Vol] 32.9 g/dL 32-36 [facility] Work Phone: No Panel Informationon 11-19 Thyroid Stimulating Hormone (TSH) 0.92 uIU/mL 0.358-3.74 [facility] Work Phone: Vitamin D 25-Hydroxy 31.2 ng/mL [facility] Work Phone: Comment on above: Vitamin D 25(OH) Sta tus Range Deficiency <20 ng/mL (50nmol/L) Insufficiency 20 - 30 ng/mL (50 - 75 nmol/L) Sufficiency 30 - 100 ng/mL (75 - 250 nmol/L) Toxicity >100 ng/mL (>250 nmol/L) Platelets bldon 11-19-2021 Platelets (Bld) [#/Vol] 249 10*3/uL 150-450 [facility] Work Phone: Serum or plasma ferritin maryan surement (mass/volume)on 11-19-2021 Ferritin [Mass/Vol] 59 ng/mL 8-252 [facility] Work Phone: Gram stain for investigation of transfusion reactionon 09-05-2021 Microscopic observation Gram stain Nom (Unsp spec) [facility] Work Phone: Thin prep Papanicolaou smear with manual screeningon 09-05-2021 Genital Culture GNR lactose hris coordinator [facility] Work Phone: TOXASSURE COMPRon 01-25-2019 TOXASSURE COMPR FINAL Normal () [facility] Comment on above: Order Comment: Zaynab s: Jerry Result Comment: ==== TOXASSURE COMP DRUG ANALYSIS,UR [...] is an expected metabolite of dextromethorphan, an vcpg-bps-apjhuyt or prescription cough suppressant. Dextrorphan cannot be distinguished from the scheduled prescription medication levorphanol by the method used for analysis. ==== Test Result Flag Units Ref Range Creatinine 166 mg/dL >=20 ==== Declared Medications: Medication list was not provided. ==== For clinical consultation, please call . ==== Performed At: [employer] [address] [place] [id number] Pavel Mohamud [facility] [phone] Performed By: #### L 600.15644 #### [facility] [address] [address] # [phone] SPEon 02-24-2018 SPE Interpretation The beta fraction is increased. Complement, transferrin and Normal [facility] ([place] Comment on above: Result Comment: Elec tronically Signed by: DEZ HERNANDEZ MD02/24/2018 16:50 EDT Performed By: #### T SH, GLU, FOL, ESR, B12, CARLOS, HCV1, RF, SPE ####[place] [address]#### HIVRP, ENA1 ####[id number] [place] [address] Albumin mass conc 3.1 G/dL Low 3.3-5.0 [facility] ([place] Comment on above: Performed By: #### T SH, GLU, FOL, ESR, B12, CARLOS, HCV1, RF, SPE ####[place] [address]#### HIVRP, ENA1 ####[id number] [place] [id number] Alpha 1 0.2 G/dL Normal 0.1-0.4 [facility] ([place] Comment on above: Performed By: #### T SH, GLU, FOL, ESR, B12, CARLOS, HCV1, RF, SPE ####[place] [address]#### HIVRP, ENA1 ####[facility] [place] [address] Alpha 2 0.9 G/dL Normal 0.6-1.2 [facility] ([place] Comment on above: Performed By: #### T SH, GLU, FOL, ESR, B12, CARLOS, HCV1, RF, SPE ####[place] [address]#### HIVRP, ENA1 ####[facility] [place] [address] Beta 1.5 G/dL High 0.6-1.3 [facility] ([place] Comment on above: Performed By: #### T SH, GLU, FOL, ESR, B12, CARLOS, HCV1, RF, SPE ####[place] [address]#### HIVRP, ENA1 ####[facility] [place] [address] Gamma 1.6 G/dL Normal 0.7-1.6 [facility] ([place] Comment on above: Performed By: #### T SH, GLU, FOL, ESR, B12, CARLOS, HCV1, RF, SPE ####[place] [address]#### HIVRP, ENA1 ####[facility] [place] [address] RFon 02-22-2018 Rheumatoid Factor <6.0 Normal [facility] ([place] Comment on above: Result Comment: RF I [...] serological tests.These results were obtained with the [employer] QUANTA Lite RF IgM DAVY. RF IgM values obtained with different manufacturers' assay methods may not be used interchangeably.The magnitude of the reported IgM levels cannot be correlated to an endpoint titer. Performed By: #### T SH, GLU, FOL, ESR, B12, CARLOS, HCV1, RF, SPE ####[place] [address]#### HIVRP, ENA1 ####[place] [id number] ANAon 02-20-2018 Nuclear Ab IF titer (S) 40 {titer} Normal Neg 40 [facility] ([place] Comment on above: Performed By: #### T SH, GLU, FOL, ESR, B12, CARLOS, HCV1, RF, SPE ####[place] [address]#### HIVRP, ENA1 ####[place] [id number] B12on 02-20-2018 Cobalamin (Vitamin B12) mass conc 828 pg/mL Normal 211-911 [facility] ([place] Comment on above: Performed By: #### T SH, GLU, FOL, ESR, B12, CARLOS, HCV1, RF, SPE ####[place] [address]#### HIVRP, ENA1 ####[place] [address] ENA1on 02-20-2018 Centromere <0.2 Normal <1.0 [facility] ([place] Comment on above: Result Comment: Nega tiveNegative: <1.0 AIPositive: >0.9 AIPerformed By:[facility] [place], [place] [address]Gll Director: JOSEE Guerrero#: [id number]#: Performed By: #### T SH, GLU, FOL, ESR, B12, CARLOS, HCV1, RF, SPE ####[place] [address]#### HIVRP, ENA1 ####[address] [address] Chromatin Antibody <0.2 Normal <1.0 [facility] ([place] Comment on above: Result Comment: Nega tiveNegative: <1.0 AIPositive: >0.9 AIPerformed By:[address] Director: JENNIFER GuerreroIA#: [id number]#: Performed By: #### T SH, GLU, FOL, ESR, B12, CARLOS, HCV1, RF, SPE ####[place] [address]#### HIVRP, ENA1 ####[place] [id number] MATTHEW-1 Ab <0.2 Normal <1.0 [facility] ([place] Comment on above: Result Comment: Nega tiveNegative: <1.0 AIPositive: >0.9 AIPerformed By:[address] Director: JENNIFER GuerreroIA#: [id number]#: Performed By: #### T SH, GLU, FOL, ESR, B12, CARLOS, HCV1, RF, SPE ####[place] [address]#### HIVRP, ENA1 ####[address] [address] Ribosomal TEAMCENTER CONSULTANT <0.2 Normal <1.0 [facility] ([place] Comment on above: Result Comment: Nega tiveNegative: <1.0 AIPositive: >0.9 AIPerformed By:[address] [address]Han Director: JENNIFER GuerreroIA#: [id number]#: Performed By: #### T SH, GLU, FOL, ESR, B12, CARLOS, HCV1, RF, SPE ####[place] [address]#### HIVRP, ENA1 ####[place] [address] [place], [place] [address] TEAMCENTER CONSULTANT Antibody 1.1 AI High <1.0 [facility] ([place] Comment on above: Result Comment: Posi tiveNegative: <1.0 AIPositive: >0.9 AIPerformed By:[address] [address]Mln Director: JENNIFER GuerreroIA#: [id number]#: Performed By: #### T SH, GLU, FOL, ESR, B12, CARLOS, HCV1, RF, SPE ####[place] [address]#### HIVRP, ENA1 ####[address] [address] Scleroderma IgG Ab <0.2 Normal <1.0 [facility] ([place] Comment on above: Result Comment: Nega tiveNegative: <1.0 AIPositive: >0.9 AIPerformed By:[address] [address]Xei Director: JENNIFER GuerreroIA#: [id number]#: Performed By: #### T SH, GLU, FOL, ESR, B12, CARLOS, HCV1, RF, SPE ####[place] [address]#### HIVRP, ENA1 ####[place] [address] [place], [place] [address] Sm Antibody <0.2 Normal <1.0 [facility] ([place] Comment on above: Result Comment: Nega tiveNegative: <1.0 AIPositive: >0.9 AIPerformed By:[address] [address]Lvm Director: JENNIFER GuerreroIA#: [id number]#: Performed By: #### T SH, GLU, FOL, ESR, B12, CARLOS, HCV1, RF, SPE ####[place] [address]#### HIVRP, ENA1 ####[address] [place] [address] SS-A Ab <0.2 Normal <1.0 [facility] ([place]) Comment on above: Result Comment: Nega tiveNegative: <1.0 AIPositive: >0.9 AIPerformed By:[address] [address]Iud Director: JOSEE Guerrero#: [id number]#: Performed By: #### T SH, GLU, FOL, ESR, B12, CARLOS, HCV1, RF, SPE ####[place] [address]#### HIVRP, ENA1 ####[address] [place] [address] SS-B Ab <0.2 Normal <1.0 [facility] ([place]) Comment on above: Result Comment: Nega tiveNegative: <1.0 AIPositive: >0.9 AIPerformed By:[address] [address]Oeg Director: JENNIFER GuerreroIA#: [id number]#: Performed By: #### T SH, GLU, FOL, ESR, B12, CARLOS, HCV1, RF, SPE ####[place] [address]#### HIVRP, ENA1 ####[address] [place] [address] ESRon 02-20-2018 Erythrocyte Sed Rate 8 mm/hr Normal 0-30 [facility] ([place]) Comment on above: Performed By: #### T SH, GLU, FOL, ESR, B12, CARLOS, HCV1, RF, SPE ####[place] [address]#### HIVRP, ENA1 ####[place] [address] [place] [address] HCVon 02-20-2018 Hep C Ab Negative Normal Negative [facility] ([place] Comment on above: Performed By: #### T SH, GLU, FOL, ESR, B12, CARLOS, HCV1, RF, SPE ####[place] [address]#### HIVRP, ENA1 ####[place] [address] Hep C Ab Int No serological evide nce of Hepatitis C infection, although levels of anti-HCV may be undetectable in early infection. Normal [facility] ([place] Comment on above: Performed By: #### T SH, GLU, FOL, ESR, B12, CARLOS, HCV1, RF, SPE ####[place] [address]#### HIVRP, ENA1 ####[place] [address] FOLon 02-19-2018 Folate 29.9 ng/mL High 1.1-20.0 [facility] ([place] Comment on above: Performed By: #### T SH, GLU, FOL, ESR, B12, CARLOS, HCV1, RF, SPE ####[place] [address]#### HIVRP, ENA1 ####[place] [address] [place] [address] GLUon 02-19-2018 Glucose mass conc 239 mg/dL High 70-105 [facility] ([place] Comment on above: Order Comment: 2hr G TT, after 75 mg of glucola Performed By: #### T SH, GLU, FOL, ESR, B12, CARLOS, HCV1, RF, SPE ####[place] [address]#### HIVRP, ENA1 ####[place] [address] [place] [address] Glucose mass conc 108 mg/dL High 70-105 [facility] ([place] Comment on above: Performed By: #### T SH, GLU, FOL, ESR, B12, CARLOS, HCV1, RF, SPE ####[place] [address]#### HIVRP, ENA1 ####[place] [address] HIVRPon 02-19-2018 HIV p24 Antigen Non-Reactive Normal Non-Reacti ve [facility] ([place] Comment on above: Performed By: #### T SH, GLU, FOL, ESR, B12, CARLOS, HCV1, RF, SPE ####[place] [address]#### HIVRP, ENA1 ####[place] [address] HIV P24 Int Non-reactive Invalid Interpretation Code [facility] ([place] Comment on above: Performed By: #### T SH, GLU, FOL, ESR, B12, CARLOS, HCV1, RF, SPE ####[place] [address]#### HIVRP, ENA1 ####[place] [address] QC RHIV Valid Normal [facility] ([place] Comment on above: Performed By: #### T SH, GLU, FOL, ESR, B12, CARLOS, HCV1, RF, SPE ####[place] [address]#### HIVRP, ENA1 ####[place] [address] [place] [address] Rapid HIV 1/2 Antibody Non-Reactive Normal Non-Reacti ve [facility] ([place] Comment on above: Performed By: #### T SH, GLU, FOL, ESR, B12, CARLOS, HCV1, RF, SPE ####[place] [address]#### HIVRP, ENA1 ####[facility] [place] [address] RHIV 1/2 Ab Int Non-Reactive Invalid Interpretation Code [facility] ([place] Comment on above: Performed By: #### T SH, GLU, FOL, ESR, B12, CARLOS, HCV1, RF, SPE ####[place] [address]#### HIVRP, ENA1 ####[facility] [place] [address] SPEon 02-19-2018 Protein mass conc 7.3 G/dL Normal 6.0-8.5 [facility] ([place] Comment on above: Performed By: #### T SH, GLU, FOL, ESR, B12, CARLOS, HCV1, RF, SPE ####[place] [address]#### HIVRP, ENA1 ####[place] [address] [place] [address] TSHon 02-19-2018 Thyrotropin Qn 2.07 mcIU/mL Normal 0.36-3.74 [facility] ([place] Comment on above: Performed By: #### T SH, GLU, FOL, ESR, B12, CARLOS, HCV1, RF, SPE ####[place] [address]#### HIVRP, ENA1 ####[facility] [place] [address] Office Visiton 02-18-2017 Tobacco use status [facility] Never smoker Invalid Interpretation Code [facility] Work Phone: Lab Report: Bedside Glucoseo n 02-05-2017 Glucose [Mass/Vol] 254 mg/dL High 70-110 [facility] Work Phone: Office Visiton 01-23-2017 Tobacco use status [facility] Never smoker Invalid Interpretation Code [facility] Work Phone: Office Visiton 01-09-2017 Tobacco use status [facility] Never smoker Invalid Interpretation Code [facility] Work Phone: [phone] Office Visit: Left hip paino n 09-19-2016 Tobacco use status [facility] Never smoker Invalid Interpretation Code [facility] Work Phone: [phone] Gram stain for investigation of transfusion reaction Microscopic observation Gram stain Nom (Unsp spec) [facility] Work Phone: Thin prep Papanicolaou smear with manual screening Genital Culture GNR lactose hris coordinator [facility] Work Phone: Vital Signs Date Time Vital Sign Value Performing Clinician Facility 01-28-2025 08:59-0400 Body mass index (BMI) [Ratio] 29.3 kg/m2 Josie Bakari [employer] TEACHER.MACHINE WHITENER Work Phone: [facility] 01-28-2025 08:59-0400 Body weight 88.45 kg Josie Bakari [employer] TEACHER.MACHINE WHITENER Work Phone: [facility] 01-28-2025 08:59-0400 Diastolic blood pressure 75 mm[Hg] Josie Bakari [employer]ADE SCHO[employer] TEACHER.MACHINE WHITENER Work Phone: [facility] 01-28-2025 08:59-0400 Heart rate 75 /min Josie Bakari [employer] TEACHER.MACHINE WHITENER Work Phone: [facility] 01-28-2025 08:59-0400 Respiratory rate 20 /min Josie Bakari [employer] SCHO[employer] TEACHER.MACHINE WHITENER Work Phone: [facility] 01-28-2025 08:59-0400 SaO2% (BldA) [Mass fraction] 95 % Josie Bakari [employer]CHO[employer] TEACHER.MACHINE WHITENER Work Phone: [facility] 01-28-2025 08:59-0400 Systolic blood pressure 126 mm[Hg] Josie Bakari [employer]ADE SCHO[employer] TEACHER.MACHINE WHITENER Work Phone: [facility] 10-25-2024 08:24-0400 Body height 170.[address] Reed Vazquez MD Work Phone: [facility] 10-25-2024 08:24-0400 Body mass index (BMI) [Ratio] 31 kg/m2 Dr. Reed Vazquez MD Work Phone: [phone] [place] [address] 10-25-2024 08:24-0400 Body weight 89.[address] Reed Vazquez MD Work Phone: [phone] [address] [place], [place] [address] 10-25-2024 08:24-0400 Diastolic blood pressure 80 mm[Hg] Dr. Reed Vazquez MD Work Phone: 8(143)173-719245 [place] [address] 10-25-2024 08:24-0400 Heart rate 95 /min Dr. Reed Vazquez MD Work Phone: 2(329)825-534845 [place] [address] 10-25-2024 08:24-0400 SaO2% (BldA) [Mass fraction] 95 % Dr. Reed Vazquez MD Work Phone: 6(487)499-349445 [place] [address] 10-25-2024 08:24-0400 Systolic blood pressure 130 mm[Hg] Dr. Reed Vazquez MD Work Phone: 6(748)333-985945 [place] [address] 10-06-2024 15:40-0400 Body temperature 97.3 [degF] Dr. Reed Vazquez MD Work Phone: 8(040)141-831245 [place] [address] 10-06-2024 15:40-0400 Diastolic blood pressure 65 mm[Hg] Dr. Reed Vazquez MD Work Phone: 6(745)770-685945 [place] [address] 10-06-2024 15:40-0400 Heart rate 80 /min Dr. Reed Vazquez MD Work Phone: 6(026)009-255845 [place] [address] 10-06-2024 15:40-0400 Respiratory rate 16 /min Dr. Reed Vazquez MD Work Phone: 2(635)254-373167 [place] [address] 10-06-2024 15:40-0400 SaO2% (BldA) [Mass fraction] 92 % Dr. Reed Vazquez MD Work Phone: 8(505)203-708667 [place] [address] 10-06-2024 15:40-0400 Systolic blood pressure 102 mm[Hg] Dr. Reed Vazquez MD Work Phone: 3(025)690-173945 [place] [address] 10-06-2024 14:27-0400 Body height 170.[address] Reed Vazquez MD Work Phone: [facility] 10-06-2024 14:27-0400 Body mass index (BMI) [Ratio] 30.6 kg/m2 Dr. Reed Vazquez MD Work Phone: [facility] 10-06-2024 14:27-0400 Body weight 88.[address] Reed Vazquez MD Work Phone: [facility] 09-09-2024 13:38-0400 Diastolic blood pressure 77 mm[Hg] Katty Steiner [employer].MACHINE WHITENER Work Phone: [facility] 09-09-2024 13:38-0400 Heart rate 79 /min Katty Steiner [employer].MACHINE WHITENER Work Phone: [facility] 09-09-2024 13:38-0400 Respiratory rate 16 /min Katty Steiner [employer].MACHINE WHITENER Work Phone: [facility] 09-09-2024 13:38-0400 SaO2% (BldA) [Mass fraction] 97 % Katty Steiner [employer].MACHINE WHITENER Work Phone: [facility] 09-09-2024 13:38-0400 Systolic blood pressure 137 mm[Hg] Katty Steiner [employer].MACHINE WHITENER Work Phone: [facility] 09-09-2024 13:30-0400 Body mass index (BMI) [Ratio] 29.63 kg/m2 Katty Steiner [employer].MACHINE WHITENER Work Phone: [facility] 09-09-2024 13:30-0400 Body weight 89.45 kg Katty Steiner [employer].MACHINE WHITENER Work Phone: [facility] 04-13-2024 13:51-0400 Body mass index (BMI) [Ratio] 28.55 kg/m2 Katty Steiner [employer].MACHINE WHITENER Work Phone: [facility] 04-13-2024 13:51-0400 Body weight 86.18 kg Katty Steiner [employer].MACHINE WHITENER Work Phone: [facility] 04-13-2024 13:51-0400 Diastolic blood pressure 82 mm[Hg] Katty Steiner [employer].MACHINE WHITENER Work Phone: [facility] 04-13-2024 13:51-0400 Heart rate 82 /min Katty Steiner [employer].MACHINE WHITENER Work Phone: [facility] 04-13-2024 13:51-0400 SaO2% (BldA) [Mass fraction] 94 % Katty Steiner [employer].MACHINE WHITENER Work Phone: [facility] 04-13-2024 13:51-0400 Systolic blood pressure 124 mm[Hg] Katty Steiner [employer].MACHINE WHITENER Work Phone: [facility] 11-20-2023 08:54-0400 Body mass index (BMI) [Ratio] 32.1 kg/m2 Katty Steiner [employer].MACHINE WHITENER Work Phone: [facility] 11-20-2023 08:54-0400 Body weight 96.89 kg Katty Steiner [employer].MACHINE WHITENER Work Phone: [facility] 11-20-2023 08:54-0400 Diastolic blood pressure 67 mm[Hg] Katty Steiner [employer]ER.MACHINE WHITENER Work Phone: [facility] 11-20-2023 08:54-0400 Heart rate 84 /min Katty Steiner [employer].MACHINE WHITENER Work Phone: [facility] 11-20-2023 08:54-0400 Respiratory rate 16 /min Katty Steiner [employer].MACHINE WHITENER Work Phone: [facility] 11-20-2023 08:54-0400 SaO2% (BldA) [Mass fraction] 96 % Katty Steiner [employer].MACHINE WHITENER Work Phone: [facility] 11-20-2023 08:54-0400 Systolic blood pressure 113 mm[Hg] Katty Steiner [employer]ER.MACHINE WHITENER Work Phone: [facility] 02-11-2023 11:00-0400 Body height 173.7 cm Joyce Marley DO Work Phone: [facility] 02-11-2023 11:00-0400 Body weight 94.35 kg Vikramdeysi Marley DO Work Phone: [facility] 02-11-2023 11:00-0400 Diastolic blood pressure 101 mm[Hg] Joyce Marley DO Work Phone: [facility] 02-11-2023 11:00-0400 Heart rate 88 /min Joyce Donell DO Work Phone: [facility] 02-11-2023 11:00-0400 Respiratory rate 19 /min Joyce Marley DO Work Phone: [facility] 02-11-2023 11:00-0400 SaO2% (BldA) [Mass fraction] 96 % Joyce Marley DO Work Phone: [facility] 02-11-2023 11:00-0400 Systolic blood pressure 160 mm[Hg] Joyce Donell DO Work Phone: [facility] 12-25-2021 09:56-0400 Body height 170.[address] Clemente Randhawa Work Phone: [facility] Work Phone: 12-25-2021 09:56-0400 Body mass index (BMI) [Ratio] 31.3 kg/m2 Dr. Clemente Randhawa Work Phone: [facility] Work Phone: 12-25-2021 09:56-0400 Body weight 90.[address] Clemente Randhawa Work Phone: [facility] Work Phone: 12-25-2021 09:56-0400 Diastolic blood pressure 82 mm[Hg] Dr. Clemente Randhawa Work Phone: [facility] Work Phone: 12-25-2021 09:56-0400 Respiratory rate 18 /min Dr. Clemente Randhawa Work Phone: [facility] Work Phone: 12-25-2021 09:56-0400 Systolic blood pressure 118 mm[Hg] Dr. Clemente Randhawa Work Phone: [facility] Work Phone: 04-16-2012 13:26-0400 Body weight 80.74 kg Evelyn Azevedo Work Phone: [facility] Work Phone: 04-16-2012 13:26-0400 Diastolic blood pressure 84 mm[Hg] Evelyn Azevedo Work Phone: [facility] Work Phone: 04-16-2012 13:26-0400 Heart rate 82 /min Evelyn Azevedo Work Phone: [facility] Work Phone: 04-16-2012 13:26-0400 Systolic blood pressure 122 mm[Hg] Evelyn Azevedo Work Phone: [facility] Work Phone: 10-03-2011 14:30-0400 Body height 170.18 cm Evelyn Azevedo Work Phone: [facility] Work Phone: Encounters Encounter Date Encounter Type Care Provider Facility Start: 02-07-2025 ambulatory Alfred Solano Facility:[facility] Start: 01-28-2025 End: 01-28-2025 ambulatory Maude Taylor Facility:[facility] Start: 01-28-2025 End: 01-28-2025 Patient encounter procedure Maude Taylor DC -[facility] Work Phone: Start: 01-28-2025 End: 01-28-2025 Patient encounter procedure Josie Chand APRN.MACHINE WHITENER Work Phone: Pain Management Comment on above: Other chronic pain ( Primary Dx); Encounter for long-term opiate analgesic use; Myofascial pain syndrome; Chronic cervical pain; Postlaminectomy syndrome, lumbar region; Chronic pain syndrome Start: 01-19-2025 ambulatory Maude Taylor Facili ty:[facility] Start: 01-06-2025 End: 01-06-2025 Telephone encounter Josie Chand APRN.MACHINE WHITENER Work Phone: Pain Management Comment on above: Patient Question Start: 01-06-2025 End: 01-06-[address] Reed Vazquez MD Work Phone: -Cat Scan [facility] Start: 01-06-2025 End: 01-06-[address] Reed Vazquez MD -Laboratory [facility] Start: 01-06-2025 End: 01-06-2025 ambulatory Reed Vazquez Facility:[facility] Start: 12-01-2024 End: 12-01-[address] Reed Vazquez MD Work Phone: [facility] Work Phone: Start: 12-01-2024 End: 12-01-2024 Patient encounter procedure Maude Taylor PA -Ultrasound [facility] Work Phone: Start: 12-01-2024 End: 12-01-2024 ambulatory Maude Taylor Facility:[facility] Start: 11-25-2024 End: 11-25-2024 Telemedicine consultation with patient Katty Steiner APRN.MACHINE WHITENER Work Phone: [facility] Start: 11-25-2024 End: 11-25-2024 ambulatory Katty Steiner APRN.MACHINE WHITENER Work Phone: Pain [facility] Comment on above: Encounter for long-t erm opiate analgesic use (Primary Dx); Myofascial pain syndrome; Opioid dependence, continuous (HCC); Chronic cervical pain; Encounter for long-term (current) use of medications; Postlaminectomy syndrome, lumbar region; Cervicalgia; High risk medication use; Encounter for long-term (current) use of high-risk medication; Lumbar radiculopathy; Chronic pain syndrome Start: 10-25-2024 End: 10-25-[address] Alfred Solano MD -[facility] Work Phone: Start: 10-25-2024 End: 10-25-2024 ambulatory Alfred Solano Facility:[facility] Start: 10-19-2024 End: 10-19-2024 Patient encounter procedure Maude MCGEE [facility] Work Phone: Start: 10-19-2024 End: 10-19-2024 ambulatory Reed Vazquez Facility:[facility] Start: 10-06-2024 Non-patient / Non-visit Polo Guan nd DO -[facility] Start: 10-06-2024 End: 10-06-2024 Admission to same day surgery center Polo Mac DO -Endoscopy Work Phone: Start: 10-06-2024 End: 10-06-[address] Reed Vazquez MD Work Phone: [facility] Work Phone: Start: 09-14-2024 End: 11-14-2024 Follow-up encounter Katty Steiner [employer].MACHINE WHITENER Work Phone: Pain [facility] [place] Start: 09-09-2024 End: 09-09-2024 Subsequent hospital visit by physician Xr [facility] Jan RADIO GEN [facility] JAN Comment on above: Chronic cervical tiffanie n [M54.2, G89.29] Start: 09-09-2024 End: 09-09-2024 Patient encounter procedure Katty Steiner [employer].MACHINE WHITENER Work Phone: Pain [facility] Jan Comment on above: Encounter for long-t erm opiate analgesic use (Primary Dx); Chronic cervical pain; Myofascial pain syndrome; Encounter for long-term (current) use of medications; Chronic pain syndrome Start: 09-09-2024 End: 09-09-2024 ambulatory KATTY STEINER Facility:[id number] Start: 08-11-2024 End: 08-11-2024 Patient encounter procedure Maude MCGEE [facility] Work Phone: Start: 08-11-2024 End: 08-11-2024 ambulatory Maude Taylor Facility:[facility] Start: 07-15-2024 End: 07-15-[address] [facility] Start: 07-15-2024 End: 07-15-2024 ambulatory Reed Vazquez Facility:[facility] Start: 07-13-2024 End: 07-13-2024 Telemedicine consultation with patient Katty Steiner APRN.MACHINE WHITENER Work Phone: [facility] Start: 07-13-2024 End: 07-13-2024 ambulatory Katty Steiner [employer].MACHINE WHITENER Work Phone: Pain [facility] Jan Comment on above: Myofascial pain synd charles (Primary Dx); High risk medication use; Opioid dependence, continuous (HCC); Encounter for long-term (current) use of medications; Postlaminectomy syndrome, lumbar region; Encounter for long-term (current) use of high-risk medication; Encounter for long-term opiate analgesic use; Cervicalgia; Lumbar radiculopathy; Chronic pain syndrome Start: [facility] Start: 07-09-2024 End: 07-13-2024 ambulatory Katty Steiner [employer]ER.MACHINE WHITENER Work Phone: Pain [facility] Jan Comment on above: soapp Start: 07-09-2024 End: 07-13-2024 E-mail encounter from caregiver Katty Steiner APRN.MACHINE WHITENER Work Phone: Pain [facility] Start: 07-08-2024 End: 07-08-[address] Reed Vazquez MD -Laboratory, [place] Work Phone: Start: 07-08-2024 End: 07-08-2024 [facility][1] Reed Vazquez Facility:[facility] Start: 04-13-2024 End: 04-13-2024 Patient encounter procedure Katty Steiner [employer].MACHINE WHITENER Work Phone: Pain [facility] Jan Comment on above: Myofascial pain synd charles (Primary Dx); Encounter for long-term (current) use of medications; Encounter for long-term opiate analgesic use; High risk medication use; Postlaminectomy syndrome, lumbar region; Cervicalgia; Opioid dependence, continuous (HCC); Encounter for long-term (current) use of high-risk medication; Lumbar radiculopathy; Chronic pain syndrome Start: 04-13-2024 End: 04-13-2024 ambulatory KATTY STEINER Facility:[id number] Start: 02-10-2024 End: 02-10-2024 Telemedicine consultation with patient Katty Steiner CASEY.QUINCY Work Phone: Pain [facility] Jan Start: 02-10-2024 End: 02-10-2024 ambulatory Katty Steiner [employer].MACHINE WHITENER Work Phone: Pain [facility] Jan Comment on above: Myofascial pain synd charles (Primary Dx); High risk medication use; Opioid dependence, continuous (HCC); Encounter for long-term (current) use of medications; Postlaminectomy syndrome, lumbar region; Encounter for long-term (current) use of high-risk medication; Encounter for long-term opiate analgesic use; Cervicalgia; Lumbar radiculopathy; Chronic pain syndrome Start: 01-19-2024 Refill Katty Steiner CASEY.[facility] Work Phone: Pain [facility] Jan Comment on above: Refill Request Start: 11-20-2023 End: 11-20-2023 Patient encounter procedure Katty Steiner CASEY.[facility] Work Phone: Pain [facility] Jan Comment on above: High risk medication use (Primary Dx); Encounter for long-term (current) use of medications; Opioid dependence, continuous (HCC); Postlaminectomy syndrome, lumbar region; Lumbar radiculopathy; Encounter for long-term (current) use of high-risk medication; Myofascial pain syndrome; Obesity, Class I, BMI 30-34.9; Chronic pain syndrome; Encounter for long-term opiate analgesic use Start: 10-16-2023 Telephone encounter Katty orta APRN.CNP Work Phone: Pain [facility] Jan Start: 10-09-2023 Telephone encounter Katty orta APRN.MACHINE WHITENER Work Phone: Pain [facility] Jan Comment on above: virtual visit [facility] Future Appointment Appointment Start: 10-09-2023 End: 10-09-2023 ambulatory Katty E Steiner [employer] TEACHER.MACHINE WHITENER Work Phone: [facility] Comment on above: High risk medication use (Primary Dx); Opioid dependence, continuous (HCC); Myofascial pain syndrome; Encounter for long-term (current) use of medications; Postlaminectomy syndrome, lumbar region; Encounter for long-term (current) use of high-risk medication; Obesity, Class I, BMI 30-34.9; Cervicalgia; Lumbar radiculopathy; Chronic pain syndrome Start: 10-09-2023 End: 10-09-2023 Telemedicine consultation with patient Katty E Steiner [employer] TE[employer]ER.MACHINE WHITENER Work Phone: [facility] [place] Start: 10-08-2023 Telephone encounter Katty orta [employer] TEACHER.MACHINE WHITENER Work Phone: [facility] [place] Start: 09-18-2023 Telephone encounter Katty orta [employer] TEACHER.MACHINE WHITENER Work Phone: [facility] [place] Start: 09-03-2023 End: 09-03-2023 ambulatory [facility] Work Phone: Start: 09-03-2023 End: 09-03-2023 Patient encounter procedure [facility] Work Phone: Start: 08-22-2023 Telephone encounter Katty orta [employer] TEACHER.MACHINE WHITENER Work Phone: [facility] [place] Start: 08-14-2023 End: 08-14-2023 ambulatory Katty E Steiner [employer] TEACHER.MACHINE WHITENER Work Phone: [facility] Comment on above: High risk medication use (Primary Dx); Opioid dependence, continuous (HCC); Obesity, Class I, BMI 30-34.9; Myofascial pain syndrome; Encounter for long-term (current) use of medications; Postlaminectomy syndrome, lumbar region; Lumbar radiculopathy; Encounter for long-term (current) use of high-risk medication; Chronic pain syndrome Start: 08-14-2023 End: 08-14-2023 Telemedicine consultation with patient Katty Heart Jatin PEÑA.MACHINE WHITENER Work Phone: [facility] Start: 08-14-2023 Telephone encounter Katty orta APRN.MACHINE WHITENER Work Phone: [facility] Comment on above: virtual visit precha rting Future Appointment Start: 07-18-2023 Telephone encounter Katty orta APRN.MACHINE WHITENER Work Phone: [facility] [place] Start: 07-06-2023 Telephone encounter Katty orta APRN.MACHINE WHITENER Work Phone: [facility] Comment on above: Orders Start: 06-05-2023 Telephone encounter Katty orta APRN.MACHINE WHITENER Work Phone: [facility] Comment on above: Appointment Start: 06-05-2023 End: 06-05-2023 ambulatory Katty Steiner APRN.MACHINE WHITENER Work Phone: [facility] Comment on above: Encounter for long-t erm (current) use of medications (Primary Dx); Myofascial pain syndrome; High risk medication use; Postlaminectomy syndrome, lumbar region; Cervicalgia; Lumbar radiculopathy; Encounter for long-term (current) use of high-risk medication; Lumbar post-laminectomy syndrome; Chronic pain syndrome Start: 06-05-2023 End: 06-05-2023 Telemedicine consultation with patient Katty Heart Jatin PEÑA.MACHINE WHITENER Work Phone: [facility] Start: 05-14-2023 End: 05-14-2023 ambulatory Katty Una Jatin PEÑA.MACHINE WHITENER Work Phone: [facility] [place] Comment on above: Encounter for long-t erm (current) use of medications (Primary Dx); Myofascial pain syndrome; High risk medication use; Postlaminectomy syndrome, lumbar region; Cervicalgia; Lumbar radiculopathy; Encounter for long-term (current) use of high-risk medication; Lumbar post-laminectomy syndrome; Chronic pain syndrome Start: 05-14-2023 End: 05-14-2023 Telemedicine consultation with patient Katty Heart Jatin PEÑA.QUINCY Work Phone: [facility] Start: 05-14-2023 Telephone encounter Katty orta APRN.MACHINE WHITENER Work Phone: [facility] [place] Comment on above: virtual visit precha rting License Issuer - O ther follow up on referra l Future Appointment Patient Question Start: 04-16-2023 Telephone encounter Katty orta APRN.MACHINE WHITENER Work Phone: [facility] [place] Start: 04-09-2023 ambulatory ANNALISE Afua [place] Facility:[facility] Start: 04-09-2023 Telephone encounter Katty orta APRN.MACHINE WHITENER Work Phone: [facility] [place] Comment on above: rheum order faxed Orders (Referral fax ed to dr goncalves//) Start: 04-07-2023 Patient encounter procedure [facility] Provider [facility] Department Start: 04-07-2023 Telephone encounter Katty orta [employer] TE[employer]ER.MACHINE WHITENER Work Phone: [facility] [place] Comment on above: follow up on pt mercedes rds Received Outside Med ical Records Start: 04-04-2023 Telephone encounter Katty orta APRN.MACHINE WHITENER Work Phone: [facility] [place] Comment on above: Future Appointment follow up on med rec ords Start: 04-04-2023 End: 04-04-2023 ambulatory Katty Heart Jatin PEÑA.MACHINE WHITENER Work Phone: [facility] [place] Comment on above: Encounter for long-t erm (current) use of medications (Primary Dx); High risk medication use; Myofascial pain syndrome; Encounter for long-term (current) use of high-risk medication; Postlaminectomy syndrome, lumbar region; Cervicalgia; Lumbar radiculopathy; Chronic pain syndrome Start: 04-04-2023 End: 04-04-2023 Telemedicine consultation with patient Katty Heart Jatin PEÑA.MACHINE WHITENER Work Phone: [facility] Start: 04-03-2023 Telephone encounter Katty orta [employer] TEACHER.MACHINE WHITENER Work Phone: Pain [facility] Comment on above: virtual visit precha rting Start: 03-25-2023 End: 03-26-2023 ambulatory JOYCE MARLEY Facility:[facility] Start: 03-25-2023 End: 03-25-2023 Subsequent hospital visit by physician Mri [facility] (I-Stat/1.5t) Work Phone: Radiology Comment on above: Radiculopathy of lum bar region [M54.16] Start: 03-14-2023 Telephone encounter Katty orta [employer] TEACHER.MACHINE WHITENER Work Phone: Pain [facility] Start: 03-14-2023 End: 03-14-2023 ambulatory Katty Steiner [employer]ER.MACHINE WHITENER Work Phone: Pain [facility] Jan Comment on above: Encounter for long-t erm (current) use of medications (Primary Dx); Myofascial pain syndrome; High risk medication use; Cervicalgia; Lumbar radiculopathy; Lumbar post-laminectomy syndrome; Opioid dependence, continuous (HCC); Encounter for long-term (current) use of high-risk medication; Postlaminectomy syndrome, lumbar region; Chronic pain syndrome Start: 03-14-2023 End: 03-14-2023 Telemedicine consultation with patient Katty Steiner [employer] TEACHER.MACHINE WHITENER Work Phone: [facility] Start: 03-10-2023 Refill Joyce Figueroa DO Work Phone: Pain Management Comment on above: Refill Request Start: 02-20-2023 Telephone encounter Katty orta [employer] TEACHER.MACHINE WHITENER Work Phone: Pain [facility] Start: 02-11-2023 End: 02-18-2023 Patient encounter procedure [...] present (HCC) Start: 01-13-2023 End: 01-13-2023 ambulatory [facility] Work Phone: Start: 01-13-2023 End: 01-13-2023 Patient encounter procedure [facility], [place] Work Phone: Start: 01-10-2023 Telephone encounter Katty orta APRN.CNP Work Phone: Pain [facility] Comment on above: Future Appointment Start: 01-09-2023 Telephone encounter Katty orta APRN.CNP Work Phone: Pain [facility] Jan Comment on above: virtual visit precha rting Start: 12-12-2022 End: 12-12-2022 ambulatory Katty Steiner APRN.CNP Work Phone: Pain [facility] Jan Comment on above: High risk medication use (Primary Dx); Opioid dependence, continuous (HCC); Encounter for long-term (current) use of medications; Lumbar radiculopathy; Cervicalgia; Postlaminectomy syndrome, lumbar region; Encounter for long-term (current) use of high-risk medication; Lumbar post-laminectomy syndrome; Neck pain; Other chronic pain Start: 12-12-2022 End: 12-12-2022 Telemedicine consultation with patient Katty Steiner APRN.CNP Work Phone: [facility] Start: 10-24-2022 End: 10-24-2022 ambulatory Katty Steiner APRN.CNP Work Phone: Pain [facility] Comment on above: Encounter for long-t erm (current) use of medications (Primary Dx); Opioid dependence, continuous (HCC); Lumbar radiculopathy; Lumbar post-laminectomy syndrome; Encounter for long-term (current) use of high-risk medication; Postlaminectomy syndrome, lumbar region; Cervicalgia; Neck pain; Other chronic pain Start: 10-24-2022 End: 10-24-2022 Telemedicine consultation with patient Katty Una Jatin SPARKS Work Phone: [facility] Start: 08-29-2022 End: 08-29-2022 ambulatory Katty Steiner APRN.MACHINE WHITENER Work Phone: Pain [facility] Jan Comment on above: Encounter for long-t erm (current) use of medications (Primary Dx); Lumbar radiculopathy; Encounter for long-term (current) use of high-risk medication; Postlaminectomy syndrome, lumbar region; Cervicalgia; Neck pain; Other chronic pain; Lumbar post-laminectomy syndrome Start: 08-29-2022 End: 08-29-2022 Telemedicine consultation with patient Katty Steiner APRN.MACHINE WHITENER Work Phone: [facility] Start: 08-01-2022 End: 08-01-2022 ambulatory Katty Steiner APRN.[facility] Work Phone: [facility] Jan Comment on above: Encounter for long-t erm (current) use of medications (Primary Dx); Lumbar radiculopathy; Encounter for long-term (current) use of high-risk medication; Postlaminectomy syndrome, lumbar region; Lumbar post-laminectomy syndrome; Other chronic pain; Neck pain; Cervicalgia Start: 08-01-2022 End: 08-01-2022 Telemedicine consultation with patient Katty Steiner APRN.MACHINE WHITENER Work Phone: [facility] Start: 07-04-2022 End: 07-04-2022 ambulatory Katty Steiner APRN.[facility] Work Phone: Pain [facility] Jan Comment on above: Encounter for long-t erm (current) use of medications (Primary Dx); Lumbar radiculopathy; Encounter for long-term (current) use of high-risk medication; Postlaminectomy syndrome, lumbar region; Cervicalgia; Neck pain; Other chronic pain; Lumbar post-laminectomy syndrome Start: 07-04-2022 End: 07-04-2022 Telemedicine consultation with patient Katty Steiner [employer] TE[employer]ER.MACHINE WHITENER Work Phone: GIUSEPPE JAN Start: 06-21-2022 Refill Katty Steiner [employer] TE[employer].MACHINE WHITENER Work Phone: Pain Management Comment on above: Refill Request Start: 06-05-2022 Refill Katty Steiner [employer] TE[employer]ER.MACHINE WHITENER Work Phone: Pain Management Comment on above: Refill Request Start: 05-31-2022 End: 05-31-2022 ambulatory Katty Steiner [employer] TEACHER.MACHINE WHITENER Work Phone: Pain [facility] [place] Comment on above: Encounter for long-t erm (current) use of medications (Primary Dx); Lumbar radiculopathy; Encounter for long-term (current) use of high-risk medication; Postlaminectomy syndrome, lumbar region; Cervicalgia; Lumbar post-laminectomy syndrome; Other chronic pain Start: 05-31-2022 End: 05-31-2022 Telemedicine consultation with patient Katty Steiner [employer] TEACHER.MACHINE WHITENER Work Phone: SASHAAustin JAN Start: 05-22-2022 Refill Lamar Sal[place]field [facility] Work Phone: Pain Management Comment on above: Refill Request Start: 04-26-2022 End: 04-26-2022 Distance [facility] Katty Una Steiner [employer] TEACHER.MACHINE WHITENER Work Phone: Pain [facility] [place] Comment on above: Chronic pain syndrom e (Primary Dx); Chronic pain disorder; Lumbar radiculopathy; Lumbar post-laminectomy syndrome; Cervicalgia; Postlaminectomy syndrome, lumbar region; Encounter for long-term (current) use of high-risk medication; Encounter for long-term (current) use of medications; Neck pain Start: 03-29-2022 Telephone encounter Katty orta [employer] TEACHER.MACHINE WHITENER Work Phone: Pain Management Comment on above: Pt submitted UDS Start: 03-26-2022 End: 03-26-2022 Distance [facility] Katty E Steiner [employer] TEACHER.MACHINE WHITENER Work Phone: Pain Management Comment on above: Chronic pain syndrom e (Primary Dx); Chronic pain disorder; Lumbar radiculopathy; Lumbar post-laminectomy syndrome; Encounter for long-term (current) use of medications Start: 02-22-2022 End: 02-22-2022 ambulatory Katty Steiner APRN.QUINCY Work Phone: Pain Management Comment on above: Chronic pain syndrom e (Primary Dx); Encounter for long-term (current) use of medications; Lumbar radiculopathy; Postlaminectomy syndrome, lumbar region; Cervicalgia Start: 02-22-2022 End: 02-22-2022 Telemedicine consultation with patient Katty Una Steiner APRN.QUINCY Work Phone: [facility] Start: 02-22-2022 Telephone encounter Katty orta APRN.MACHINE WHITENER Work Phone: Pain Management Comment on above: Call pt Start: 02-07-2022 End: 02-07-2022 Patient encounter procedure Adelita Juárez Reji ADORNO Work Phone: Orthopaedics Comment on above: Parkinson disease (H CC) (Primary Dx); Cerebrovascular accident (CVA) due to other mechanism (HCC) Start: 01-25-2022 End: 01-25-2022 ambulatory Katty Steiner APRN.MACHINE WHITENER Work Phone: Pain Management Comment on above: Chronic pain syndrom e (Primary Dx) Start: 01-25-2022 End: 01-25-2022 Telemedicine consultation with patient Katty Heart Steiner [employer] TEACHER.MACHINE WHITENER Work Phone: [facility] Start: 01-15-2022 End: 01-15-2022 ambulatory Katty Steiner [employer] TEACHER.MACHINE WHITENER Work Phone: Pain Management Comment on above: Lumbar radiculopathy (Primary Dx); Lumbar post-laminectomy syndrome; Neck pain; Chronic pain syndrome; Encounter for long-term (current) use of medications Start: 01-15-2022 End: 01-15-2022 Telemedicine consultation with patient Katty Una Steiner APRN.MACHINE WHITENER Work Phone: [facility] Start: 01-03-2022 Telephone encounter Adelita Mendoza DO Work Phone: Orthopaedics Comment on above: Appointment Start: 12-27-2021 End: 12-27-[address] Clemente Randhawa Work Phone: [facility] - Biopsy/Stero Start: 12-26-2021 Chart abstracting Katty sheppard [employer] TEACHER.MACHINE WHITENER Work Phone: [facility] Start: 12-25-2021 Refill Katty Steiner [employer] TEACHER.MACHINE WHITENER Work Phone: Pain Management Comment on above: Refill Request Start: 12-25-2021 End: 12-25-[address] Clemente Randhawa Work Phone: [facility] Start: 12-18-2021 End: 12-18-2021 Patient encounter procedure [facility] Ultrasound Start: 11-27-2021 End: 11-27-2021 Subsequent hospital visit by physician Josie Chand APRN.MACHINE WHITENER Work Phone: [facility] Comment on above: VIRTUAL Start: 11-19-2021 End: 11-19-2021 Patient encounter procedure [facility] [place] Start: 10-26-2021 End: 10-26-2021 Subsequent hospital visit by physician Katty Steiner [employer] TEACHER.MACHINE WHITENER Work Phone: [facility] Comment on above: VIRTUAL Start: 09-05-2021 End: 09-05-2021 Patient encounter procedure [facility], Specimen Start: 03-09-2019 End: 03-09-2019 Outside Orders Ck Andrew Central Scheduling Comment on above: Positive CARLOS (antinu clear antibody) (Primary Dx) Start: 01-27-2019 Notes/Results Only Other Other NOTE S/RESULTS Start: 01-27-2019 End: 01-27-2019 Patient encounter procedure Other Other [facility] Start: 06-03-2018 End: 06-03-2018 Patient encounter procedure Ck Menendez Work Phone: [facility] Start: 04-28-2018 End: 04-28-2018 Patient encounter procedure Ck Menendez Work Phone: [facility] Start: 02-19-2018 End: 02-20-2018 Patient encounter VIKRAM BUTLER Facility:[facility] Start: 02-05-2018 End: 02-06-2018 Patient encounter VIKRAM BUTLER Facility:[facility] Procedures Date Procedure Procedure Detail Performing Clinician Start: 01-06-[address] Arely Vazquez MD Work Phone: Start: 01-06-2025 Computed tomography of abdomen and pelvis with contrast Dr. Reed Vazquez MD Work Phone: Start: 12-01-2024 Ultrasound elastogra phy of liver Dr. Reed Vazquez MD Work Phone: Start: 10-06-[address] Reed higginbotham MD [...] jt lower extrem w/o contrast matrl Adelita Juárez Reji Work Phone: Start: 09-19-2016 End: 09-19-2016 Documentation of current medications Evelyn Azevedo Work Phone: Start: 09-19-2016 End: 02-11-2017 Radex hip unilateral with pelvis 2-3 views Katieuna Mendoza Work Phone: Start: 06-07-2015 Colonoscopy Katty sheppard [employer] S[employer] TEACHER.MACHINE WHITENER Work Phone: Start: 04-20-2015 End: 02-11-2017 Mri any jt upper extremity w/o contrast matrl Katieuna Mendoza Work Phone: Cytopathology proced ure, preparation of smear, genital source Investigation of tra nsfusion reaction Plan of Treatment Date Care Activity Detail Author Start: 2036 RSV Vaccine (1 - 1-d ose 75+ series) RSV Vaccine (1 - 1-dose 75+ series) [facility] Start: 04-27-2025 End: 04-27-2025 Patient encounter procedure 04/27/2025 2:30 PM EST Office Visit [facility] [address] [place] [address] Josie Chand, GRADE SCHOOL TEACHER.MACHINE WHITENER [address] [place] [address] follow up PAIN [facility] Comment on above: follow up Start: 02-14-2025 Influenza vaccination [facility] Start: 01-28-2025 End: 01-28-2025 Patient encounter procedure 01/28/2025 9:30 AM EDT Office Visit Pain Management [address] [place] [address] Josie Chand, [employer] TEACHER.MACHINE WHITENER [address] [place] [address] 2 month follow up Pain Management Comment on above: 2 month follow up Start: 11-25-2024 End: 11-25-2024 Follow-up encounter 11/25/2024 11:30 AM EDT [facility] [place] [address] [place] [address] Katty Steiner APRN.MACHINE WHITENER [address] [place] [address] 2 month follow up Pain [facility] [place] Comment on above: 2 month follow up Start: 11-19-2024 BP Controlled (<130/80) BP Con trolled (<130/80) [facility] Start: 10-06-2024 Colonoscopy w/biopsy single/multiple COLONOSCOPY AND BIOPSY [facility] Start: 10-06-2024 Egd transoral biopsy single/multiple EGD BIOPSY SINGLE/MULTIPLE [facility] Start: 10-06-2024 [facility] Start: 09-09-2024 End: 12-09-2024 BENZO CONFIRM, URINE [facility] Work Phone: Comment on above: Expected: 09/09/2024 , Expires: 12/09/2024 Start: 09-09-2024 End: 12-09-2024 QUANTITATIVE TOXICOLOGY PANEL, URINE [facility] Comment on above: Expected: 09/09/2024 , Expires: 12/09/2024 Start: 09-09-2024 End: 09-09-2024 Patient encounter procedure 09/09/2024 1:30 PM EDT Office Visit Pain [facility] [place] [address] [place] [address] Katty Steiner, [employer] TEACHER.MACHINE WHITENER [address] [place] [address] 2 month follow up Pain [facility] [place] Comment on above: 2 month follow up Start: 07-13-2024 End: 07-13-2024 Follow-up encounter 07/13/2024 3:00 PM EST [facility] [place] [address] [place] [address] Katty Steiner, [employer] SCHOOL TEACHER.MACHINE WHITENER [address] [facility] [place] [address] 3 month follow up Pain [facility] [place] Comment on above: 3 month follow up Start: 06-16-2024 Medicare Advantage A nnual Wellness Visit Medicare Advantage Annual Wellness Visit [facility] Start: 04-13-2024 End: 04-13-2024 Patient encounter procedure 04/13/2024 2:00 PM EDT Office Visit Pain [facility] [address] [place] [address] Katty Steiner, [employer] S[employer] TEACHER.MACHINE WHITENER [address] [facility] [place] [address] 2 month follow up Pain [facility] [place] Comment on above: 2 month follow up Start: 02-15-2024 Covid-19 Vaccine ( season) Covid-19 Vaccine ( season) [facility] Start: 02-15-2024 Influenza vaccination Influenza Vacc ine (#1) [facility] Start: 02-10-2024 End: 02-10-2024 Follow-up encounter 02/10/2024 3:00 PM EDT [facility] [address] [place] [address] Katty Steiner, [employer] SCHO[employer] TEACHER.MACHINE WHITENER [address] [facility] [place] [address] 2 month follow up Pain [facility] [place] Comment on above: 2 month follow up Start: 11-27-2023 End: 02-26-2024 TOXASSURE FLEX 23, URINE TOXASSURE FLEX 23, URINE Lab Routine Encounter for long-term opiate analgesic use Expected: 11/27/2023, Expires: 02/26/2024 [facility] Work Phone: Comment on above: Expected: 11/27/2023 , Expires: 02/26/2024 Start: 11-20-2023 End: 11-20-2023 Patient encounter procedure 11/20/2023 9:00 AM EDT Office Visit Pain [facility] [address] [place] [address] Katty Steiner APRN.MACHINE WHITENER [address] [place] [address] 2 month follow up [facility] Comment on above: 2 month follow up Start: 10-09-2023 End: 10-09-2023 Follow-up encounter 10/09/2023 1:30 PM EDT [facility] [address] [place] [address] Katty Steiner APRN.MACHINE WHITENER [address] [place] [address] 1 month followup Pain [facility] Comment on above: 1 month followup Start: 07-13-2023 End: 10-12-2023 TOXASSURE FLEX 23, URINE TOXASSURE FLEX 23, URINE Lab Routine High risk medication use Expected: 07/13/2023, Expires: 10/12/2023 [facility] Work Phone: Comment on above: Expected: 07/13/2023 , Expires: 10/12/2023 Start: 02-14-2023 Covid-19 Vaccine ( season) Covid-19 Vaccine () [facility] Start: 02-14-2023 Influenza vaccination [facility] Start: 02-11-2023 End: 04-13-2023 C reactive protein [Mass/volume] in Serum or Plasma C-REACTIVE PROTEIN (CRP) Lab Routine Chronic pain syndrome Myofascial pain syndrome Rheumatoid arthritis involving multiple sites, unspecified whether rheumatoid factor present (HCC) Expected: 02/11/2023, Expires: 04/13/2023 [facility] Work Phone: Comment on above: Expected: 02/11/2023 , Expires: 04/13/2023 Start: 02-11-2023 End: 04-13-2023 Erythrocyte sedimentation rate SED RATE WESTERGREN Lab Routine Chronic pain syndrome Myofascial pain syndrome Rheumatoid arthritis involving multiple sites, unspecified whether rheumatoid factor present (HCC) Expected: 02/11/2023, Expires: 04/13/2023 [facility] Work Phone: Comment on above: Expected: 02/11/2023 , Expires: 04/13/2023 Start: 02-11-2023 End: 04-13-2023 Rheumatoid factor [Units/volume] in Serum or Plasma RHEUMATOID FACTOR BL Lab Routine Chronic pain syndrome Myofascial pain syndrome Rheumatoid arthritis involving multiple sites, unspecified whether rheumatoid factor present (HCC) Expected: 02/11/2023, Expires: 04/13/2023 [facility] Work Phone: Comment on above: Expected: 02/11/2023 , Expires: 04/13/2023 Start: 05-06-2022 Diabetes Screening Diabetes Screenin g [facility] Start: 02-26-2022 End: 04-28-2022 DRUG SCR TOXASURE DRUG SCR TOXASURE Lab Routine Encounter for long-term (current) use of high-risk medication Expected: 02/26/2022, Expires: 04/28/2022 [facility] Work Phone: Comment on above: Expected: 02/26/2022 , Expires: 04/28/2022 Start: 02-14-2022 Influenza vaccination [facility] Start: 2021 RSV Vaccine (1 - 1-d ose 60+ series) RSV Vaccine (1 - 1-dose 60+ series) [facility] Start: 2021 RSV Vaccine (1 - Ris k 60-74 years 1-dose series) RSV Vaccine (1 - Risk 60-74 years 1-dose series) [facility] Start: 04-05-2019 End: 04-05-2019 Office Visit 04/05/2019 Office Visit Rheumatology Justyna Greene MD [address] [place] [address] [place] [address] Division of Rheumatology Start: 02-14-2019 Influenza vaccination INFLUENZA VACC INE (#1) [facility] Start: 06-07-2018 Colonoscopy COLONOSCOPY [facility] Start: 06-07-2018 COLORECTAL CANCER SCREENING COLORECTAL CANCER SCREENING [facility] Start: 06-07-2018 Screening for malign ant neoplasm of colon [facility] Start: 06-03-2018 End: 06-03-2018 Ambulatory 06/03/2018 Office Visit Rheumatology Shon Mcintyre, Ck Granda, DO [address] [facility] [place] [id number] [phone] [facility] Start: 02-14-2018 Influenza vaccination INFLUENZA VACC INE (#1) [facility] Work Phone: Start: 03-18-2017 End: 03-18-2017 Patient encounter procedure Appointment [facility] Work Phone: Start: 02-18-2017 End: 02-18-2017 Patient encounter procedure Appointment [facility] Work Phone: Start: 02-05-2017 End: 02-05-2017 Patient encounter procedure Appointment [facility] Work Phone: Start: 01-09-2017 End: 01-09-2017 Patient encounter procedure Appointment [facility] Work Phone: Start: 01-09-2017 End: 02-11-2017 Mri any jt lower extrem w/o contrast matrl MRI Joint Lower Extremity [facility] Work Phone: Start: 09-25-2016 End: 09-25-2016 Physical Therapy General Physical Therapy [facility], [address] [place] [address], [address] [facility] Work Phone: Start: 09-19-2016 End: 02-11-2017 Radex hip unilateral with pelvis 2-3 views X-Ray, Hip, unilateral, with pelvis; 2-[address] [facility] Work Phone: Start: 05-17-2015 End: 05-17-2015 Physical Therapy General Physical Therapy [facility], [address] [place] [address], [id number] [facility] Work Phone: Start: 04-20-2015 End: 02-11-2017 Mri any jt upper extremity w/o contrast matrl MRI Joint Upper Extremity [facility] Work Phone: Start: 01-18-2015 End: 01-18-2015 Physical Therapy General Physical Therapy [facility], [address] [place] [address], [address] [facility] Work Phone: Start: 01-12-2015 End: 01-13-2015 Office outpatient visit 25 minutes [id number] Ofc Vst, Est Level IV [facility] Work Phone: Start: 01-12-2015 End: 01-12-2015 Radex shoulder complete minimum 2 views X-Ray, Shoulder [facility] Work Phone: Start: 01-12-2015 End: 01-12-2015 Radiologic exam knee complete 4/more views X-Ray, Knee [facility] Work Phone: Start: 07-06-2014 Screening for malign ant neoplasm of colon Sigmoidoscopy [facility] Start: 07-06-2014 SIGMOIDOSCOPY SIGMOIDOSCOPY [facility] Start: 03-17-2013 Pneumococcal Vaccine : 50+ (2 of 2 - PCV) Pneumococcal Vaccine: 50+ (2 of 2 - PCV) [facility] Start: 2011 Colonoscopy COLON CANCER S CREENING DISCUSSION [facility] Start: 2011 Protein mass conc COLON CANCER SCREENING DISCUSSION [facility] Work Phone: Start: 2011 SHINGRIX VACCINE (1 of 2) SEALS GRIX VACCINE (1 of 2) [facility] Start: 2011 Zoster vaccine hzv l bailee for subcutaneous use ZOSTER (SHINGLES) VACCINE (1 of 2) [facility] Start: 2006 COLOGUARD (FIT-DNA) COLOGUARD (FIT-D NA) [facility] Start: [address] COLONOGRAPHY [facility] Start: 2006 DIABETES SCREEN DIABETES SCREEN [facility] Start: 2006 Diabetes Screening Diabetes Screenin g [facility] Start: 2006 FECAL OCCULT BLOOD FECAL OCCULT BLOO D [facility] Start: 2006 Lipid 1996 panel - S kerwin or Plasma Lipid Screening [facility] Start: 2006 Lipid panel Lipid Screening [facility] Start: 2006 LIPID SCREEN LIPID SCREEN [facility] Start: 2006 Screening for malign ant neoplasm of colon [facility] Start: 2001 Fasting lipid profile LIPID SCREENIN G [facility] Work Phone: Start: 2001 Mammography [facility] Start: 2001 Protein mass conc MAMMOGRAM MATEO SAWANT [facility] Work Phone: Start: 2001 Screening for malign ant neoplasm of breast Mammogram Screening [facility] Start: 2001 Screening mammography MAMMOGRA M SCREENING DISCUSSION [facility] Start: 1991 HPV TESTING HPV TESTING [facility] Start: 1991 Screening for malign ant neoplasm of cervix HPV Testing [facility] Start: 1982 PAP TESTING PAP TESTING [facility] Start: 1982 Screening for malign ant neoplasm of cervix [facility] Start: 1980 Third diphtheria, te tanus and acellular pertussis (DTaP) vaccination TDAP (ADULT) [facility] Work Phone: Start: 1980 Urine microalbumin profile [facility] Start: 1979 ANNUAL PCP TEAM SUPERVISOR OF COMMUNICATIONS HOLLIE DISEASE VISIT ANNUAL PCP TEAM CHRONIC DISEASE VISIT [facility] Start: 1979 Anxiety Screening Anxiety Screening [facility] Start: 1979 BP CONTROLLED (<130/80) BP CON TROLLED (<130/80) [facility] Start: 1979 HEPATITIS C SCREENING HEPATITIS C SC BOYD [facility] Start: 1979 Hepatitis C screening Hepatitis C Sc boyd [facility] Start: 1979 [facility] Start: 1979 HIV screening HIV Screening [facility] Start: 1979 Tetanus vaccination TETANUS Ohi [facility] Work Phone: Start: 1974 HIV screening HIV SCREENING DISCUSSION [facility] Work Phone: Start: 1966 COVID-19 VACCINE (#1) COVID-19 VACCI NE (#1) [facility] Start: 1961 COVID-19 VACCINE (#1) COVID-19 VACCI NE (#1) [facility] Start: 1961 Hepatitis C antibody , confirmatory test HEPATITIS C VIRUS SCREENING [facility] Work Phone: Acute hepatitis 2000 panel - Serum [facility] BENZO CONFIRM, URINE BENZO CONFI RM, URINE Lab Routine Encounter for long-term opiate analgesic use 09/09/2024 1:54 PM EDT [facility] Blood ammonia measurement [facility] C reactive protein [Mass/volume] in Serum or Plasma [facility] CBC W Auto Different ial panel - Blood [facility] Ceruloplasmin [Mass/volume] in Serum or Plasma [facility] Clostridioides diffi cile DNA [Presence] in Unspecified specimen by ROMAIN with probe detection [facility] Comprehensive metabo lic 1999 panel - Serum or Plasma [facility] Copper [Moles/volume ] in Serum or Plasma [facility] Elastase.pancreatic [Presence] in Stool [facility] Ferritin [Mass/volum e] in Serum or Plasma [facility] Giardia lamblia Ag [Presence] in Stool by Immunoassay [facility] Lactoferrin [Presenc e] in Stool by Immunoassay [facility] Mitochondria Ab [Presence] in Serum [facility] End: 03-12-2024 Mri spinal canal lumbar w/o & w/contr matrl MRI LUMBAR SPINE WO/W IVCON Radiology Routine Radiculopathy of lumbar region 1 Occurrences starting 02/11/2023 until 03/12/2024 [facility] Work Phone: Comment on above: 1 Occurrences starti ng 02/11/2023 until 03/12/2024 Nucleic acid assay [facility] Ova OR parasites identification [facility] Patient referral [facility] Work Phone: Protein measurement [facility] QUANT TOX PANEL QUANT TOX PANEL Lab Routine Encounter for long-term opiate analgesic use 09/09/2024 1:54 PM EDT [facility] Smooth muscle Ab [Presence] in Serum [facility] SPECIMEN VALIDITY, URINE SPECIME N VALIDITY, URINE Lab Routine Encounter for long-term opiate analgesic use 09/09/2024 1:54 PM EDT [facility] Ultrasonography guid ed biopsy of breast [facility] Work Phone: End: 10-09-2025 XR Cervical spine AP and Lateral and oblique XR CERV OTHER 4V AP/LAT/OBL Radiology Routine Chronic cervical pain 1 Occurrences starting 09/09/2024 until 10/09/2025 [facility] Comment on above: 1 Occurrences starti ng 09/09/2024 until 10/09/2025 XR Cervical spine AP and Lateral and oblique XR CERV OTHER 4V AP/LAT/OBL Radiology Routine Chronic cervical pain 09/09/2024 2:28 PM EDT [facility] Immunizations Immunization Date Immunization Notes Care Provider Ming greer 03-19-2023 influenza, injectabl e, quadrivalent, preservative free Josie Chand [employer]ER.MACHINE WHITENER Work Phone: [facility] 03-19-2023 influenza virus vacc ine, unspecified formulation Katty Steiner [employer] TEACHER.MACHINE WHITENER Work Phone: [facility] 03-30-2021 Influenza virus vaccine [facility] 03-08-2021 influenza, injectabl e, quadrivalent, contains preservative Josie Bakari [employer] TEACHER.MACHINE WHITENER Work Phone: [facility] 03-08-2021 influenza, injectabl e, quadrivalent, preservative free Dr. Reed Vazquez MD Work Phone: [facility] 03-08-2021 influenza virus vacc ine, unspecified formulation Joyce Marley DO Work Phone: [facility] 08-17-2019 influenza, injectabl e, quadrivalent, preservative free [facility] 08-17-2019 influenza, seasonal, injectable [facility] 04-07-2018 Influenza virus vaccine [facility] 04-07-2018 influenza, seasonal, injectable, preservative free Josie Bakari [employer] TEACHER.MACHINE WHITENER Work Phone: [facility] 04-21-2017 influenza, injectabl e, quadrivalent, contains preservative Josie Bakari GRADE SCHOOL TEACHER.MACHINE WHITENER Work Phone: [facility] 04-21-2017 influenza, injectabl e, quadrivalent, preservative free Dr. Reed Vazquez MD Work Phone: [facility] 04-09-2016 influenza, injectabl e, quadrivalent, preservative free Dr. Reed Vazquez MD Work Phone: [facility] 04-09-2016 influenza, seasonal, injectable Josie Bakari [employer]ADE SCHO[employer] TEACHER.MACHINE WHITENER Work Phone: [facility] 03-17-2012 pneumococcal polysaccharide vaccine, 23 valent Josie Bakari GRADE SCHO[employer] TEACHER.MACHINE WHITENER Work Phone: [facility] 03-17-2012 Pneumococcal Vaccine [facility] Work Phone: 03-17-2012 pneumococcal vaccine , unspecified formulation [facility] 02-15-1998 tetanus toxoid, adsorbed Dr. Reed Vazquez MD Work Phone: [facility] Payers Date Payer Category Payer Self-pay [id number] 2022 Medicare (Managed Care) [id number] 2022 [facility] [id number] 2021 Medicare [facility] MEDICARE [facility] DUAL COMPLETE HMO SNP [id number] 2021-Present [phone] [address] [place] [address] Medicare [id number] 2021 Medicare [id number]. [id number] 2019 Medicaid MEDICAID MEDICAI D xxxxxxxxxxxx 2019-Present xxxxxxxxxxxx [id number] 2018 Medicare [id number] 2015 Medicaid MEDICAID [facility] MEDICAID [id number] 2015-Present [phone] [address] [place] [address] Medicaid [id number] 2015 Medicaid [id number]. [id number]. [id number] 2015 Medicaid [id number] 2001 Medicare MEDICARE MEDICAR E A AND B xxxxxxxxxx 2001-Present [place], [place] xxxxxxxxxx [id number] 2001 Medicare [id number] 2001 Medicare MEDICARE MEDICAR E A AND B [id number] 2001-Present [phone] [facility] [address] [place] [address] Medicare [id number] 1960 Unknown [id number]. 594 Unknown [id number] 2.16.840.1.250241.3.579.2. 462 Unknown [id number] 2.16.840.1.176116.3.579.2. 462 Unknown [id number] 2.16.840.1.881997.3.579.2. 462 Unknown [id number] 2.16.840.1.918581.3.579.2. 462 Unknown [id number] 2.16.840.1.830386.3.579.2. 462 Unknown [id number] 2.16.840.1.014408.3.579.2. 462 Unknown [id number] 2.16.840.1.288351.3.579.2. 462 Unknown [id number] 2.16.840.1.480787.3.579.2. 462 Unknown [id number] 2.16.840.1.508814.3.579.2. 462 Unknown [id number] 2.16.840.1.106553.3.579.2. 462 Unknown [id number] 2.16.840.1.698932.3.579.2. 462 Unknown [id number] 2.16.840.1.833965.3.579.2. 462 Unknown [id number] 2.16.840.1.723252.3.579.2. 462 Unknown [id number] 2.16.840.1.366023.3.579.2. 462 Social History Date Type Detail Facility Tobacco smoking status NHIS Unknown if ever smoked [facility] Work Phone: Start: 1960 Sex Assigned At Not on file [facility] Work Phone: Start: 04-24-2021 End: 01-31-2022 Tobacco smoking status NHIS Unknown if ever smoked [facility] Start: 03-18-2019 None [facility] Start: 08-16-2019 Alone;With Family [facility] Start: 03-18-2019 Non-smoker [facility] Start: 1960 Sex Assigned At Female [facility] Start: 02-07-2022 End: 10-04-2024 Tobacco smoking status NHIS Never smoked tobacco [facility] Start: 12-20-2020 End: 01-28-2025 Alcohol intake Current non-drinker of alcohol (finding) [facility] Start: 12-15-2021 End: 01-25-2022 Exposure to SARS-CoV-2 (event) Not sure [facility] Start: 02-07-2022 Tobacco use and exposure Smokeless tobacco non-user [facility] Start: 10-24-2022 End: 12-12-2022 History of Social function [facility] Start: 10-24-2022 End: 12-12-2022 Tobacco use panel [facility] Start: 05-17-2012 National Score (1-100), lower number is lower risk 58 [facility] Start: 10-06-2024 Sex Female (finding) [facility] NEGATED: Highlighted row Not [facility] Goals Date Patient Goal Desired Activity /State Mental Status Date Assessment Result Facility 10-06-2024 Cognitive function Voice/Name [facility] Work Phone: Clinical Notes 06-07-2015 to 01-28-2025 Josie Chand APRN.MACHINE WHITENER - 01/28/2025 9:30 AM EDTPatient InstructionsTelephone Encounter - Kyleigh Baker RN - 01/06/2025 1:23 PM EDTTelephone Encounter - Kyleigh Baker RN - 01/06/2025 1:23 PM EDT Note Date & Type Note Facility 01-28-2025 History of Presen t illness Narrative Chief Complaint: Pain ___ History of Present Illness: Roseanna Jones is a 64 year old year old female being seen at [facility] for a evaluation and/or management of her chronic pain. She states that since the last visit symptoms have been stable. She had a diverticulitis flare and was given tramadol. Her medical history has not changed and she denies any hospital stays or ER visits. Pain Level: 7 Pain Location: Back-Lower (neck) Description: Aching; Burning; Sharp; Shooting; Throbbing; Stabbing Duration Amount of Time: 20 Duration Units: Years Frequency: Continuous Intervention/Comfort measure: Medication; Reposition; Relaxation Has the Patient Had 2 Falls in the Last Year or 1 Fall with Injury or Currently Using an Ambulatory Assistive Device (Walker, Cane, Wheelchair, Crutches, etc.): No The patient denies any bowel or bladder dysfunction. The patient is currently prescribed Fentanyl Patches and gabapentin from our office. The Fentanyl Patch is located on her back. The medications are partially effective. She denies any side effects from the medications. PDMP website checked and validated. The OARRS report has been reviewed and is consistent with the patients medical history and medication intake. Last Opioid agreement effective date: 09/09/2024 Last UDS: Reviewed - No inconsistencies noted. 09/09/2024 UDS CONSISTENT 11/24/2023 UDS CONSISTENT Summary Report Date Value Ref Range Status 11/20/2023 FINAL Final Comment: ==== Gabapentin, MS, Ur RFX ToxAssure Flex 23, Ur ==== Test Result Flag Units Drug Present Fentanyl 26 ng/mg creat Norfentanyl 15 ng/mg creat Source of fentanyl is a scheduled prescription medication, including IV, patch, and transmucosal formulations. Norfentanyl is an expected metabolite of fentanyl. Gabapentin PRESENT ==== Test Result Flag Units Ref Range Creatinine 111 mg/dL >=20 ==== Declared Medications: Medication list was not provided. ==== For clinical consultation, please call . ==== Urine Panel: Lab Results Component Value Date Benzoylecgonine Quant, Urine <25 09/09/2024 6-Monoacetylmorphine Quant, Urine <5 09/09/2024 Amphetamine Quant, Urine <25 09/09/2024 Methamphetamine Quant, Urine <25 09/09/2024 Buprenorphine Quant, Urine <5 09/09/2024 Methadone Quant, Urine <25 09/09/2024 EDDP Quant, Urine <25 09/09/2024 O-Desmethyltramadol Quant, Urine <25 09/09/2024 Fentanyl Quant, Urine 20 (H) 09/09/2024 Norfentanyl Quant, Urine 16 (H) 09/09/2024 Codeine Quant, Urine <25 09/09/2024 Morphine Quant, Urine <25 09/09/2024 Hydrocodone Quant, Urine <25 09/09/2024 Oxycodone Quant, Urine <25 09/09/2024 Hydromorphone Quant, Urine <25 09/09/2024 Oxymorphone Quant, Urine <25 09/09/2024 Chronic Pain Functional Assessment Tools Pain Disability Index: 11/25/2024 01/28/2025 Pain Disability Index Family/Home Responsibilities: This category includes chores or duties performed around the house (e.g. yard work), errands or favors for other family members (e.g. driving the children to school) 7 3 Recreation: This category includes hobbies, sports, and other similar leisure time activities 7 3 Social Activity: This category refers to activities which involve participation with friends and acquaintances, other than family members. It includes parties, theater, concerts, dinning out, and other social functions 7 3 Occupation: This category refers to activities that are a part of or directly related to ones' job. This includes non-paying jobs as well, such as that of a housewife or volunteer worker 10 Total disability 3 Sexual Behavior: This category refers to the frequency and quality of one's sex life 7 3 Self Care: This category includes activities which involve personal maintenance and independent daily living (e.g. taking a shower, driving, getting dress, etc) 7 3 Life Support Activity: This category refers to basic-life supporting behaviors such as eating, sleeping, and breathing 7 3 PDI Score 52 21 Pain Enjoyment of Life and General Activity [...] you have mood swings?: 0 - Never (01/28/2025 8:56 AM) How often do you smoke a cigarette within an hour after you wake up?: 0 - Never (01/28/2025 8:56 AM) How often have you taken medication other than the way it was prescribed?: 0 - Never (01/28/2025 8:56 AM) How often have you used illegal drugs (for example, marijuana, cocaine, etc.) in the past five years?: 0 - Never (01/28/2025 8:56 AM) How often, in your lifetime, have you had legal problems or been arrested?: 0 - Never (01/28/2025 8:56 AM) Sum of Questions (> or = 7 is positive): 0 (01/28/2025 8:56 AM) REVIEW OF SYSTEMS: GENERAL: No weight loss or fevers RESPIRATORY: Negative for cough CARDIOVASCULAR: Negative for chest pain GI: No nausea, vomiting, or diarrhea. MUSCULOSKELETAL: + for joint pain or swelling, back pain and muscle pain PAST MEDICAL HISTORY Diagnosis Date Abdominal pain, [...] See Comments Current Outpatient Medications Medication Sig escitalopram oxalate (LEXAPRO) 20 mg tablet Take 1 tablet by mouth once daily. metFORMIN (GLUCOPHAGE) 1,000 mg tablet Take 1 tablet by mouth every 12 hours. metoclopramide HCl (REGLAN) 5 mg tablet TAKE 1 TABLET BY MOUTH 1/2 HOUR BEFORE MEALS FOR 8 WEEKS mirtazapine (REMERON) 30 mg tablet Take 30 mg by mouth daily at bedtime. propranolol (INDERAL) 20 mg tablet REZDIFFRA 100 mg tablet rosuvastatin (CRESTOR) 5 mg tablet Take 1 tablet by mouth once daily. fentaNYL (DURAGESIC) 25 mcg/hr Apply 1 patch as directed every 72 hours for 30 days. As directed. Patient should start on November 29, 2024. fentaNYL (DURAGESIC) 25 mcg/hr Apply 1 patch as directed every 72 hours for 30 days. As directed. Patient should start on December 29, 2024. gabapentin (NEURONTIN) 600 mg tablet Take 1 tablet by mouth three times a day for 30 days. Patient should start on November 26, 2024. dicyclomine (BENTYL) 10 mg capsule Take 1 capsule by mouth every 12 hours. TRESIBA FLEXTOUCH U-100 100 unit/mL (3 mL) injection pen insulin lispro (HUMALOG KWIKPEN) 100 unit/mL INJECT 45 units before each meal omeprazole (PRILOSEC) 40 mg capsule Take 40 [...] facility-administered medications for this visit. PHYSICAL EXAMINATION: BP 126/75 (BP Site: Left Arm, BP Position: Sitting) Pulse 75 Resp 20 Wt 88.5 kg (195 lb) SpO2 95% BMI 29.30 kg/m GENERAL: alert and appropriate, in no distress HEAD: normocephalic, no abnormality or lesion visualized RESPIRATORY: breathing non-labored, no conversational shortness of breath NEUROLOGIC: no obvious deficit MUSCULOSKELETAL: Steady gait, able to ascend/descend from the chair without difficulty ASSESSMENT: Patient is stable. Chronic pain is persistent. Medications are helping Roseanna Jones to have an improved quality of life. Patient compliance with Opioid Contract: patient is compliant Encounter Diagnosis ICD-10-CM 1. Other chronic pain G89.29 2. Encounter for long-term opiate analgesic use Z79.891 3. Myofascial pain syndrome M79.18 4. Chronic cervical pain M54.2 G89.29 5. Postlaminectomy syndrome, lumbar region M96.1 PLAN: The [...] THC your medication will be discontinued. Continue Fentanyl A prescription for narcan (naloxone) has been offered to the patient. Continue Gabapentin She declines physical therapy at this time due to her insurance Continue care with PCP and specialists Follow-up in 2 months Josie Chand APRN.CNP documented in this encounter [facility] 01-27-2025 Instructions Josie Chand APRN.CNP - 01/27/2025 7:40 AM EDT Despite its legality, THC containing products and CBD products that may contain THC are not to be used while being prescribed pain medications. If your drug screen contains any THC your medication will be discontinued. Continue Fentanyl A prescription for narcan (naloxone) has been offered to the patient. Continue Gabapentin She declines physical therapy at this time due to her insurance Continue care with PCP and specialists Follow-up in 2 months documented in this encounter [facility] 01-06-2025 Radiology Diagnostic study note [facility] Imaging Services [address] [place] [id number] Abdomen/Pelvis WITH Contrast MR#: [id number] Acct: [id number] Name: ROSEANNA JONES Rep #: [id number] : 1960 F 64 From: Gunner Begum MD PCP: Dr. Reed Vazquez MD Status: REG C CHRIST Study:Abdomen/Pelvis WITH Contrast Date of Ex am: 01/06/25 Exam# [id number] Ordering Dr: Reed Vazquez MD PROCEDURE: ABDOMEN/PELVIS WITH CONTRAST 01/06/2025 REASON FOR EXAM: LLQ ABDOMINAL PAIN TECHNIQUE: ABDOMEN/PELVIS WITH CONTRAST Coronal and Sagittal reconstruction series were provided. CONTRAST: Isovue-300 VOLUME: 92 mL One or more dose reduction techniques were used (e.g., Automated exposure control, adjustment of the mA and/or kV according to patient size, use of iterative reconstruction technique. RADIATION DOSE SUMMARY: CTDlvol: 32 mGy DLP: 1193.28 mGycm COMPARISON: None. FINDINGS: Lung bases: Clear. Liver: Diffuse hepatic steatosis. Small circumscribed hypodense lesion in the medial left lobe measuring up to 1.3 cm, most likely a benign cyst or hemangioma. Gallbladder: Surgically absent. No significant biliary ductal dilatation. Spleen: Normal size and morphology. Pancreas: Within normal limits. Adrenals: Unremarkable. Kidneys: Unremarkable. No hydronephrosis or urolithiasis. Bladder: Unremarkable. Reproductive Organs: Unremarkable. Bowel: Unremarkable stomach and small bowel. Normal appendix. Oral contrast propagates to the rectum with no evidence of obstruction. Extensive colonic diverticulosis with long segment wall thickeningand surrounding inflammatory fat stranding involving the descending and rectosigmoid colon, compatible with diverticulitis/colitis. Lymph nodes: No suspicious lymph node enlargement. Vasculature: Normal course and caliber of the abdominal aorta and IVC. Peritoneum / Retroperitoneum: No ascites or free air. Musculoskeletal: Subcutaneous fat stranding in the lower anterior abdominal wallprobably related to medication injections. Multilevel degenerative changes of the spine. Postoperative changes of dorsal decompressive laminectomy at L5 with interbody fusion at L5-S1. CT/Abdomen/Pelvis WITH Contrast IMPRESSION: Acute uncomplicated diverticulitis/colitis involving the descending and rectosigmoid colon. Reading Location: [id number] CC: Dr. Reed Vazquez MD ~ Nurse School: Signed [facility] 01-06-2025 Telephone encounter Note Makeda pt daughter and DDM Shu Napoles pharmacist, notified Kyleigh Baker RN January 06, 2025 1:23 PM [facility] 01-06-2025 Miscellaneous Notes Makeda pt daughter and DDM Shu Napoles pharmacist, notified Kyleigh Baker RN January 06, 2025 1:23 PM That's fine Pt daughter Makeda reid, states pt had appt with pcp today. Pt has diverticulitis with abscess and is prescribed tramadol and zofran. They are asking if pt can take this, please advise Kyleigh Baker RN January 06, 2025 12:43 PM documented in this encounter [facility] 01-06-2025 Telephone encounter Note That's fine [facility] Work Phone: 01-06-2025 Telephone encounter Note Pt daughter Makeda reid, states pt had appt with pcp today. Pt has diverticulitis with abscess and is prescribed tramadol and zofran. They are asking if pt can take this, please advise Kyleigh Baker RN January 06, 2025 12:43 PM [facility] 12-01-2024 Radiology Diagnostic study note [facility] Imaging Services [address] [place] [address] ABD Limited w/ Elastography MR#: [id number] Acct: [id number] Name: ROSEANNA JONES Rep #: [id number] : 1960 F 64 From: Mark Dotson MD PCP: Dr. Boby Bhakta MD Status: REG CL I Study:ABD Limited w/ Elastography Date of Exa m: 12/01/24 Exam# [id number] Ordering Dr: Maude Taylor PROCEDURE: ABD LIMITED W/ ELASTOGRAPHY REASON FOR EXAM: ESOPHAGEAL VARICES COMPARISON: None. TECHNIQUE: Right upper quadrant abdominal ultrasound. Jessie ElastQ Imaging shear wave elastography for non-invasive assessment of liver tissue stiffness. Cube [employer] EPIQ Elite. FINDINGS: LIVER: Size: Enlarged (hepatomegaly) Length: 21.2 cm Echotexture: Diffusely echogenic suggesting fatty infiltration Contour: Normal Lesions: There is a 1.7 cm x 1.4 cm x 1.4 cm septated cyst in the left lobe of the liver. Elastography: EQI Med: 12.5 kPa EQI Med Naveen: 2.03 m/s IQR/Med: 20 %* GALLBLADDER: Surgically absent. COMMON BILE DUCT: Normal measuring 5.7 mm. Possible choledochal cyst measuring 2.2 cm 1.4 cm x 1.4 cm.. PANCREAS: Normal Visualized portions of the right kidney are unremarkable. No right upper quadrant ascites. US/ABD Limited w/ Elastography IMPRESSION: SEVERE HEPATIC FIBROSIS / CIRRHOSIS Hepatomegaly and fatty infiltration of the liver. Status post cholecystectomy. 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 Reference Values: SRU <1.37 m/s (5.7kPa): No to mild fibrosis 1.37 m/s - 2.2 m/s: Moderate to severe fibrosis >2.2 m/s (15kPa): Significant fibrosis / cirrhosis METAVIR Score F2 or higher: 1.34 m/s (5.7kPa) F3 or higher: 1.55 m/s (7.3kPa) F4: 1.80 m/s (10kPa) * If the IQR/Med is >30%, the variance in the measurements is a large and the accuracy of the measurement may be in question. Reading Location: [facility] CC: Dr. Boby Bhakta MD; ARELY Jacinto ~ Nurse School: Signed [facility] 11-25-2024 Instructions Katty Steiner APRN.CNP - 11/25/2024 [...] maintained on it by Dr Marley and COAL PASSER's working with her. She is compliant with the pain management agreement and there have been no signs of medication misuse, abuse or diversion. Follow-up in 2 months Katty Steiner APRN.MACHINE WHITENER documented in this encounter [facility] 11-25-2024 Note HNO ID: [id number] Author: KATTY STEINER APRN.CNP Service: ? Author Type: Nurse Practitioner Type: Progress Notes Filed: 11/25/2024 11:32 Note Text: This video visit was performed via [employer]. Patient consented to receive health care services via virtual visit for this encounter Provider Location: Non-[facility] Facility Patient Location: Patient Home or Place of Residence I have communicated my name and active licensure. The patient's identity and physical location were verified at the time of this visit. Either the patient or their legal medical service representative has been informed of the risks and benefits of -- and alternatives to -- treatment through a remote evaluation and consents to proceed with the evaluation remotely. Chief Complaint: Pain ___ History of Present Illness: Roseanna Jones is a 64 year old year old female being seen at [facility] for a evaluation and/or [...] noted. last uds 07/11/23------consistent(+)ETOH Hx of DM [facility] Last uds 11/20/23-----consistent [facility] Last uds 09/09/24------consistent [facility] Summary Report Date Value Ref Range Status 11/20/2023 FINAL Final Comment: ==== Gabapentin, MS, Ur RFX ToxAssure Flex 23, Ur ==== Test Result Flag Units Drug Present Fentanyl 26 ng/mg creat Norfentanyl 15 ng/mg creat Source of fentanyl is a scheduled prescription medication, including IV, patch, and transmucosal formulations. Norfentanyl is an expected metabolite of fentanyl. Gabapentin PRESENT ==== Test Result Flag Units Ref Range Creatinine 111 mg/dL >=20 ==== Declared Medications: Medication list was not provided. ==== For clinical consultation, please call . ==== Urine Panel: No results found for: UQCANN, UQBNZL, TCO9XZY, UQAMPH, UQMAMP, UQBUPRE, UQNORBUP, UQMTHD, UQEDDP, UQTRAM, [...] PDI Score 52 (more content not included)... [facility] 11-25-2024 History of Presen t illness Narrative This video visit was performed via [employer] [place]. Patient consented to receive health care services via virtual visit for this encounter Provider Location: Non-[facility] Facility Patient Location: Patient Home or Place of Residence I have communicated my name and active licensure. The patient's identity and physical location were verified at the time of this visit. Either the patient or their legal medical service representative has been informed of the risks and benefits of -- and alternatives to -- treatment through a remote evaluation and consents to proceed with the evaluation remotely. Chief Complaint: Pain ___ History of Present Illness: Roseanna Jones is a 64 year old year old female being seen at [facility] for a evaluation and/or [...] Ref Range Status 11/20/2023 FINAL Final Comment: ==== Gabapentin, MS, Ur RFX ToxAssure Flex 23, Ur ==== Test Result Flag Units Drug Present Fentanyl 26 ng/mg creat Norfentanyl 15 ng/mg creat Source of fentanyl is a scheduled prescription medication, including IV, patch, and transmucosal formulations. Norfentanyl is an expected metabolite of fentanyl. Gabapentin PRESENT ==== Test Result Flag Units Ref Range Creatinine 111 mg/dL >=20 ==== Declared Medications: Medication list was not provided. ==== For clinical consultation, please call . ==== Urine Panel: No results found for: UQCANN, UQBNZL, NGK8TEL, UQAMPH, UQMAMP, UQBUPRE, UQNORBUP, UQMTHD, UQEDDP, UQTRAM, [...] maintained on it by Dr Marley and COAL PASSER's working with her. She is compliant with the pain management agreement and there have been no signs of medication misuse, abuse or diversion. Follow-up in 2 months Katty Steiner APRN.CNP documented in this encounter [facility] 10-06-2024 Consult note [facility] 10-06-2024 History and physi annita note Note Date/Time October 06, 2024 2:34pm [facility] Medical Records Department [address] [place] [address] History & Physical Exam 10/06/24 1431 MR#: [id number] Acct: [id number] Name: ROSEANNA JONES Rep #:[id number] : 1960 64 From: Polo Mac DO PCP: Dr. Reed Vazquez MD Status:REG S [place] Location: [place] [address] HPI - General General Date of Admission: [...] She mentions having polyps in the past. [facility] Medical History Wears glasses Wears dentures Post-menopausal [...] 1RF 10/06/24 1434 <Electronically signed by Polo Mca DO> Cosigner Signature (if applicable): CC: Dr. Reed Vazquez MD; Polo Mac DO~ Signed [facility] Work Phone: 1(952) 120-993204-23-2025 Consult note Author Chidi Bui [facility] Note Date/Time October 06, 2024 2:0 5pm [facility] Medical Records Department [address] [place] [address] Pre-Anesthesia Evaluation 10/06/24 1405 MR#: [id number] Acct: [id number] Name: ROSEANNA JONES Rep #:[id number] : 1960 64 From: Chidi Bui MD PCP: Dr. Reed Vazquez MD Status:REG S DC Y Race: C Location: [place] [address] ASA Classification* ASA Classification ASA Classification: 3 [...] Procedure(s): EGD/CSCOPE Anesthesia History Anesthesia History - roller man: Anesthesia History - roller man Hx Hospitalization No 10/04/24 10:15 Any Problems [...] take am of surgery PONV PONV - roller man: PONV - roller man Female Yes 10/04/24 10:15 HX of Motion [...] 01/31/22 15:37 Respiratory Assessment Respiratory Assessment - roller man: Respiratory Tract Infection Hx - roller man Hx Respiratory Tract Infection No 10/04/24 10:15 STOP Sleep Apnea STOP Sleep Apnea - roller man: STOP Sleep Apnea - roller man Hx Hypertension Yes: CONTROLLED WITH MED 10/04/24 [...] Tobacco Use History Tobacco Use History - roller man: Tobacco Use History - roller man Tobacco Use Smoking Status Never smoker 10/04/24 10:15 Hx Tobacco Use No 10/04/24 10:15 Years Smoking Packs Smoked per Day Smoking Cessation Date was within the last 15 years Hx Smoking Cessation Date Hx Smoking Cessation Counseling Hematologic Medial History Hematologic Hx - roller man: 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 10/06/24 1405 <Electronically signed by Chidi Bui MD > Date _ Chidi Bui MD Cosigner Signature: Date CC: ~ Signed [facility] Work Phone: 1(734) 289-411504-23-2025 Evaluation note* Diagnosis Onset Date Resolution Status Admit Date Loose stools acute October 06, 2024 1:56pm Nausea acute October 06 1:56pm RUQ pain acute October 06 1:56pm Esophageal varices acute October 2:47pm Loose stools acute October 19 2:47pm Nausea acute October 19, 2024 2:47pm Diabetes mellitus chronic October 8:16am Gastroparesis chronic October 25, 2 025 8:16am Hyperlipidemia chronic October 25, 2024 8:16am Obesity chronic October 25, 2024 8:16am 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 October 25, 2024 8:16am [facility] Work Phone: 1(619) 817-755404-23-2025 Evaluation note* Diagnosis Onset Date Resolution Status Admit Date Loose stools acute October 06, 2024 1:56pm Nausea acute October 06 1:56pm RUQ pain acute October 06 1:56pm Esophageal varices acute October h2024 2:47pm Loose stools acute October 19 2:47pm Nausea acute October 19, 2024 2:47pm Diabetes mellitus chronic October h2024 8:16am Gastroparesis chronic October 25, 2 025 8:16am Hyperlipidemia chronic October 25, 2024 8:16am Obesity chronic October 25, 2024 8:16am 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 October 25, 2024 8:16am Liver fibrosis acute January 2024 1:45pm [facility] Work Phone: 1(900) 586-613704-23-2025 Procedure note [facility] Medical Records Department [address] [place] [address] Colonoscopy Report MR#: [id number] Acct: [id number] Name: ROSEANNA JONES Rep #:[id number] : 1960 64 From: Polo Mac DO [...] GI office. Procedure Code(s): --- Professional --- 82563, Colonoscopy, flexible; with biopsy, single or multiple CPT copyright 2021 [employer]. All rights reserved. The codes documented in this report are preliminary and upon document photographer review may be revised to meet current compliance requirements. Polo Mac DO 10/06/2024 3:35:20 PM This report has been signed electronically. Number of Addenda: 0 Note Initiated On: 10/06/2024 3:03 PM 10/06/24 1535 Date _ Polo Mac DO Cosigner Signature: Date (if indicated) CC: Dr. Reed Vazquez MD; Polo Mac DO ~ Date Dictated: 10/06/24 1503 Date Transcribed: Nurse School: RF Signed [facility]04-23-2025 Procedure note [facility] Medical Records Department [address] [place] [address] Operative Report - CC Letter MR#: [id number] Acct: [id number] Name: ROSEANNA JONES Rep #:[id number] : 1960 64 From: Polo Mac DO PCP: Dr. Reed Vazquez MD Status:REG S DC 10/06/2024 Reed Vazquez MD [address] [id number] Re : Colonoscopy procedure for Roseanna Jones [...] This report has been signed electronically. 10/06/24 1535 Date _ Polo Foxignshirlene Signature: Date (if indicated) CC: Dr. Reed Vazquez MD; Polo Mac DO ~ Date Dictated: 10/06/24 1503 Date Transcribed: Nurse School: RF Signed [facility]04-23-2025 Consult note [facility] Medical Records Department [address] [place] [address] Anesthesia Postop Eval I 10/06/24 1533 MR#: [id number] Acct: [id number] Name: ROSEANNA JONES Rep #:[id number] : 1960 64 From: Saman Claudio PCP: Dr. Reed Vazquez MD Status:REG S DC Y Race: C Location: [place] [address] Anesthesia: Postop Eval I Current Vital Signs [...] Yes 10/06/24 1534 > Date _ Saman Garciaignshirlene Signature: Date CC: ~ Signed [facility]04-23-2025 Procedure note [facility] Medical Records Department [address] [place] [address] EGD Report MR#: [id number] Acct: [id number] Name: ROSEANNA JONES Rep #:[id number] : 1960 64 From: Polo Mac DO [...] pathology results. Procedure Code(s): --- Professional --- 68258, Small intestinal endoscopy, enteroscopy beyond second portion of duodenum, not including ileum; with biopsy, single or multiple CPT copyright 2021 [employer]. All rights reserved. The codes documented in this report are preliminary and upon document photographer review may be revised to meet current compliance requirements. Polo Mac DO 10/06/2024 3:32:36 PM This report has been signed electronically. Number of Addenda: 0 Note Initiated On: 10/06/2024 2:32 PM 10/06/24 1532 Date _ Polo Mac DO Cosignshirlene Signature: Date (if indicated) CC: Dr. Reed Vazquez MD; Polo Mac DO ~ Date Dictated: 10/06/24 1432 Date Transcribed: Nurse School: MERECDES Signed [facility]04-23-2025 Procedure note [facility] Medical Records Department [address] [place] [address] Operative Report - CC Letter MR#: [id number] Acct: [id number] Name: ROSEANNA JONES Rep #:[id number] : 1960 64 From: Polo Mac DO PCP: Dr. Reed Vazquez MD Status:REG S DC 10/06/2024 Reed Vazquez MD [address] [place] [address] Re : Upper GI endoscopy procedure for [...] ~ Date Dictated: 10/06/24 1432 Date Transcribed: Nurse School: RF Signed [facility]04-23-2025 History and physical note [facility] Medical Records Department [address] [place] [address] History & Physical Exam 10/06/24 143 MR#: [id number] Acct: [id number] Name: ROSEANNA JONES Rep #:[id number] : 1960 64 From: Polo Mac DO PCP: Dr. Reed Vazquez MD Status:REG S DC Location: [place] [address] HPI - General General Date of Admission: [...] She mentions having polyps in the past. [facility] Medical History Wears glasses Wears dentures Post-menopausal [...] Reed Vazquez MD; Polo Mac DO~ Signed [facility]04-23-2025 [facility] Medical Records Department [address] [place] [address] History Physical Exam 10/06/24 1431 MR#: [id number] Acct: [id number] Name: ROSEANNA JONES Rep #: [id number] : 1960 64 From: Polo Mac DO PCP: Dr. Reed Vazquez MD Status:REG [facility] Location: [place] [address] HPI - General General Date of Admission: [...] She mentions having polyps in the past. [facility] Medical History Wears glasses Wears dentures Post-menopausal [...] vomiting or weight changes (more content not included)...[facility]04-23-2025 Consult note [facility] Medical Records Department [address] [place] [address] Pre-Anesthesia Evaluation 10/06/24 1405 MR#: [id number] Acct: [id number] Name: ROSEANNA JONES Rep #:[id number] : 1960 64 From: Chidi Bui MD PCP: Dr. Reed Vazquez MD Status:REG S DC Y Race: C Location: [place] [address] ASA Classification* ASA Classification ASA Classification: 3 [...] Procedure(s): EGD/CSCOPE Anesthesia History Anesthesia History - roller man: Anesthesia History - roller man Hx Hospitalization No 10/04/24 10:15 Any Problems [...] take am of surgery PONV PONV - roller man: PONV - roller man Female Yes 10/04/24 10:15 HX of Motion [...] 01/31/22 15:37 Respiratory Assessment Respiratory Assessment - roller man: Respiratory Tract Infection Hx - roller man Hx Respiratory Tract Infection No 10/04/24 10:15 STOP Sleep Apnea STOP Sleep Apnea - roller man: STOP Sleep Apnea - roller man Hx Hypertension Yes: CONTROLLED WITH MED 10/04/24 [...] Tobacco Use History Tobacco Use History - roller man: Tobacco Use History - roller man Tobacco Use Smoking Status Never smoker 10/04/24 10:15 Hx Tobacco Use No 10/04/24 10:15 Years Smoking Packs Smoked per Day Smoking Cessation Date was within the last 15 years Hx Smoking Cessation Date Hx Smoking Cessation Counseling Hematologic Medial History Hematologic Hx - roller man: 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 Hx of Blood Transfusion No 10/04/24 10:15 [...] confused, unrespo /Reproduction History /Reproductive History - roller man: /Reproductive Hx- roller man Hx Now No 10/04/24 10:15 Gestational Age [...] Chidi Jones Signature: Date CC: ~ Signed [facility]04-01-2025 Progress note* Result Encounter Note - Katty Steiner APRN.CNP - 09/14/2024 8:52 PM EDT UDS CONSISTENT [facility]04-01-2025 Miscellaneous Notes* Result Encounter Note - Katty Steiner APRN.CNP - 09/14/2024 8:52 PM EDT UDS CONSISTENT documented [facility] encounterMi[facility]03-27-[facility] History of Present illness Narrative* Alee Espitia RT(R) - 09/09/2024 2:20 PM EDT Radiology [...] PATIENT PRESENTS WITH AN IMPLANTABLE OR ATTACHED IT APPLICATIONS MANAGER: No RADIOLOGY DEPARTMENT: General X-ray: Exam(s) Completed: Spine X-Ray(s): Cervical AP / LAT / OBL PERIPHERAL IV DATA: Not applicable SIGNED BY: RT Evens(R) September 09, 2024 2:28 PM documented in this encounterMiami [facility] Hospital03-27-2025 NoteHNO ID: [id number] Author: ALEE ESPITIA RT(R) Service: Radiology Author [...] PATIENT PRESENTS WITH AN IMPLANTABLE OR ATTACHED IT APPLICATIONS MANAGER: No RADIOLOGY DEPARTMENT: General X-ray: Exam(s) Completed: Spine X-Ray(s): Cervical AP / LAT / OBL PERIPHERAL IV DATA: Not applicable SIGNED BY: RT Evens(R) September 09, 2024 2:28 [facility]ML[facility]03-27[facility] Instructions* Patient Instructions* Katty Steiner, CASEY.MACHINE WHITENER - 09/09/2024 1:59 PM EDT Despite its [...] appt Continue to follow-up to PCP (Dr. Rnadhawa)- gastroparesis. Continue to follow-up with Dr. Butler [...] maintained on it by Dr Marley and COAL PASSER's working with her. She is compliant with the pain management agreement and there have been no signs of medication misuse, abuse or diversion. Follow-up in 2 months Katty Steiner APRN.CNP documented in this encounterMiami [facility] Hospital03-27-2025 History of Present illness Narrative* Katty Steiner APRN.CNP - 09/09/2024 1:30 PM EDT Chief Complaint: Pain History of Present Illness: Roseanna Jones is a 64 year old year old female being seen at [facility] for a evaluation and/or [...] Hx of DM manuel Last uds 11/20/23-----consistent [facility] Urine Drug Screen Summary Report Date [...] provided. For clinical consultation, please call . [facility] Urine Drug Screen and Benzo Confirm Urine Panel: No results found for: UQCANN, UQBNZL, BLE2MWP, UQAMPH, UQMAMP, UQBUPRE, UQNORBUP, UQMTHD, UQEDDP, UQTRAM, [...] maintained on it by Dr Marley and COAL PASSER's working with her. She is compliant with the pain management agreement and there have been no signs of medication misuse, abuse or diversion. Follow-up in 2 months Katty Steiner APRN.CNP documented in this encounterMiami [facility] Hospital03-27-2025 NoteHNO ID: [id number] Author: KATTY STEINER APRN.CNP Service: ? Author Type: Nurse Practitioner Type: Progress Notes Filed: 09/09/2024 14:02 Note Text: Chief Complaint: Pain History of Present Illness: Roseanna Jones is a 64 year old year old female being seen at [facility] for a evaluation and/or [...] provided. For clinical consultation, please call . [facility] Urine Drug Screen and Benzo Confirm Urine Panel: No results found for: UQCANN, UQBNZL, FOC1KTJ, UQAMPH, UQMAMP, UQBUPRE, UQNORBUP, UQMTHD, UQEDDP, UQTRAM, [...] activity?: 8 (09/09/2024 1:00 (more content not included)...[facility]02-26-2025 Evaluation note* Diagnosis Onset Date Resolution Status Admit Date Loose stools acute July 12:37pm Nausea acute August 11, 2024 12:37pm RUQ pain acute August 11, 2024 12:37pm Loose stools acute October 06, 2024 1:56pm Nausea acute October 06 1:56pm RUQ pain acute October 06 1:56pm [facility] Work Phone: 1([phone]) 818-417202-26-2025 Evaluation note* Diagnosis Onset Date Resolution Status Admit Date Loose stools acute July 12:37pm Nausea acute August 11, 2024 12:37pm RUQ pain acute August 11, 2024 12:37pm Loose stools acute October 06, 2024 1:56pm Nausea acute October 06 1:56pm RUQ pain acute October 06 1:56pm Esophageal varices acute October 2:47pm Loose stools acute October 19 2:47pm Nausea acute October 19, 2024 2:47pm Diabetes mellitus chronic October 8:16am Gastroparesis chronic October 25, 2 025 8:16am Hyperlipidemia chronic October 25, 2024 8:16am Obesity chronic October 25, 2024 8:16am 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 October 25, 2024 8:16am [facility] Work Phone: [phone] Instructions* Patient Instructions* Katty Steiner APRN.CNP - 07/13/2024 3:02 PM EST Despite its [...] maintained on it by Dr Marley and CO[employer] PASSER's working with her. She is compliant with the pain management agreement and there have been no signs of medication misuse, abuse or diversion. Follow-up in 2 months Katty Steiner APRN.CNP documented in this encounterMiami [facility] Hospital01-28-2025 History of Present illness Narrative* Katty Steiner APRN.CNP - 07/13/2024 3:00 PM EST This video visit was performed via [employer] - [place]. Patient consented to receive health care services via virtual visit for this encounter Provider Location: Non-[facility] Patient Location: Patient Home or Place of Residence I have communicated my name and active licensure. The patient's identity and physical location wereverified at the time of this visit. Either the patient or their legal medical service representative has been informed of the risks and benefits of -- and alternatives to -- treatment through a remote evaluation andconsents to proceed with the evaluation remotely. Chief Complaint: Pain History of Present Illness: Roseanna Jones is a 64 year old year old female being seen at [facility] for a evaluation and/or [...] Panel: No results found for: UQCANN, UQBNZL, GHB5YPC, UQAMPH, UQMAMP, UQBUPRE, UQNORBUP, UQMTHD, UQEDDP, UQTRAM, [...] maintained on it by Dr Marley and COAL PASSER's working with her. She is compliant with the pain management agreement and there have been no signs of medication misuse, abuse or diversion. Follow-up in 2 months Katty Steiner APRN.CNP documented in this encounterMiami [facility] Hospital01-28-2025 NoteHNO ID: [id number] Author: KATTY STEINER APRN.CNP Service: ? Author Type: Nurse Practitioner Type: Progress Notes Filed: 07/13/2024 15:06 Note Text: This video visit was performed via [employer]. Patient consented to receive health care services via virtual visit for this encounter Provider [facility] Patient Location: Patient Home or Place of Residence I have communicated my name and active licensure. The patient's identity and physical location were verified at the time of this visit. Either the patient or their legal medical service representative has been informed of the risks and benefits of -- and alternatives to -- treatment through a remote evaluation and consents to proceed with the evaluation remotely. Chief Complaint: Pain History of Present Illness: Roseanna Jones is a 64 year old year old female being seen at [facility] for a evaluation and/or [...] Panel: No results found for: UQCANN, UQBNZL, DJS7TCX, UQAMPH, UQMAMP, UQBUPRE, UQNORBUP, UQMTHD, UQEDDP, UQTRAM, [...] Assessing Pain Intensity and (more content not included)...[facility]11-01-2024 Consult note Author Saman Claudio [facility] Note Date/Time October 06, 2024 3:3 4pm [facility] Medical Records Department [address] [place] [address] Anesthesia Postop Eval I 10/06/24 1533 MR#: [id number] Acct: [id number] Name: ROSEANNA JONES Rep #:[id number] : 1960 64 From: Saman Claudio PCP: Dr. Reed Vazquez MD Status:REG S DC Y Race: C Location: [place] [address] Anesthesia: Postop Eval I Current Vital Signs [...] Postop Eval 1 completed: Yes 10/06/24 1534 <Electronically signed by Saman Claudio > Date _ Saman Claudio Karen Signature: Date CC: ~ Signed [facility] Work Phone: [phone]) 902-270610-29-2024 Instructions* Patient Instructions* Katty Steiner APRN.CNP - 04/13/2024 2:09 PM EDT Despite its [...] maintained on it by Dr Marley and [employer] P[employer]ER's working with her. She is compliant with the pain management agreement and there have been no signs of medication misuse, abuse or diversion. Follow-up in 2 months Katty Steiner APRN.CNP documented in this encounterMiami [facility] Hospital10-29-2024 History of Present illness Narrative* Katty Steiner APRN.CNP - 04/13/2024 2:00 PM EDT Chief Complaint: Pain History of Present Illness: Roseanna Jones is a 63 year old year old female being seen at [facility] for a evaluation and/or [...] maintained on it by Dr Marley and [employer] P[employer]ER's working with her. She is compliant with the pain management agreement and there have been no signs of medication misuse, abuse or diversion. Follow-up in 2 months Katty Steiner APRN.CNP documented in this encounterMiami [facility] Hospital10-29-2024 NoteHNO ID: [id number] Author: KATTY STEINER APRN.CNP Service: ? Author Type: Nurse Practitioner Type: Progress Notes Filed: 04/13/2024 14:17 Note Text: Chief Complaint: Pain History of Present Illness: Roseanna Jones is a 63 year old year old female being seen at [facility] for a evaluation and/or [...] parties, theater, concerts, d (more content not included)...[facility] 02-10-2024 History of Present illness Narrative* Katty Steiner APRN.CNP - 02/10/2024 3:00 PM EDT This video visit was performed via [employer]. Patient consented to receive health care services via virtual visit for this encounter Provider Location: Non-[facility] Patient Location: Patient Home or Place of Residence I have communicated my name and active licensure. The patient's identity and physical location wereverified at the time of this visit. Either the patient or their legal medical service representative has been informed of the risks and benefits of -- and alternatives to -- treatment through a remote evaluation andconsents to proceed with the evaluation remotely. Chief Complaint: Pain History of Present Illness: Roseanna Jones is a 63 year old year old female being seen at [facility] for a evaluation and/or [...] disorder, not elsewhere classified No date: Diabetes ([facility]) No date: Diarrhea No date: Diverticulitis of colon (without mention of hemorrhage)(562. 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 She is compliant with the pain management agreement and there have been no signs of medication misuse, abuse or diversion. Follow-up in 2 months-in office visit Katty Steiner APRN.CNP documented in this encounterMiami [facility] Hospital08-27-2024 NoteHNO ID: [id number] Author: KATTY STEINER APRN.CNP Service: ? Author Type: Nurse Practitioner Type: Progress Notes Filed: 02/10/2024 15:07 Note Text: This video visit was performed via [employer] - [place]. Patient consented to receive health care services via virtual visit for this encounter Provider Location: Non-[facility] Patient Location: Patient Home or Place of Residence I have communicated my name and active licensure. The patient's identity and physical location were verified at the time of this visit. Either the patient or their legal medical service representative has been informed of the risks and benefits of -- and alternatives to -- treatment through a remote evaluation and consents to proceed with the evaluation remotely. Chief Complaint: Pain History of Present Illness: Roseanna Jones is a 63 year old year old female being seen at [facility] for a evaluation and/or management of her [...] Comment: TOXASSURE COMP DRUG (more content not included)...[facility]06-06-2024 Note* Addendum Note - Katty Steiner APRN.CNP - 11/20/2023 9:39 AM EDTAddended by: KATTY STEINER on: 11/20/2023 09:39 AM Modules accepted: Orders [facility]06-06-2024 Miscellaneous Notes* Addendum Note - Katty Steiner APRN.CNP - 11/20/2023 9:39 AM EDTAddended by: KATTY STEINER on: 11/20/2023 09:39 AM Modules accepted: Orders documented in this encounterMiami Valley Hospital06-06-2024 Instructions* Patient Instructions* Katty Steiner APRN.CNP - [...] maintained on it by Dr Marley and [employer] P[employer]ER's working with her. She is compliant with the pain management agreement and there have been no signs of medication misuse, abuse or diversion. Follow-up in 2 months-in office visit Katty Steiner APRN.CNP documented in this encounterMiami [facility] Hospital06-06-2024 History of Present illness Narrative* Katty Steiner APRN.CNP - 11/20/2023 9:00 AM EDT Chief Complaint: Pain History of Present Illness: Roseanna Jones is a 63 year old year old female being seen at [facility] for a evaluation and/or [...] maintained on it by Dr Marley and [employer] PASSER's working with her. She is compliant with the pain management agreement and there have been no signs of medication misuse, abuse or diversion. Follow-up in 2 months-in office visit Katty Steiner APRN.MACHINE WHITENER documented in this encounterMiami Valley Hospital06-06-2024 Nurse Note* Xenia Montano MA - 11/20/2023 8:57 AM EDT Last dose pain meds taken 11/20/23 @ 7 am. [facility]06-06-2024 Nurse Note* Xenia Montano MA - 11/20/2023 8:57 AM EDT Last dose pain meds taken 11/20/23 @ 7 am. documented in this encounterMiami [facility] Hospital05-02-2024 Telephone encounter Note * Telephone Encounter - Xenia Montano MA - 10/16/2023 10:05 AM EDT Items addressed in this encounter: Health Maintenance Review Able to close encounter. Xenia Montano MA October 16, 2023 10:05 AM 10:05 AM [facility]05-02-2024 Miscellaneous Notes* Telephone Encounter - Xenia Montano MA - 10/16/2023 10:05 AM EDT Items addressed in this encounter: Health Maintenance Review Able to close encounter. Xenia Montano MA October 16, 2023 10:05 AM 10:05 AM documented in this encounterMi[facility] Hospital04-25-2024 Telephone encounter Note * Telephone Encounter - Xenia Montano MA - 10/09/2023 2:31 PM EDT Items addressed in this encounter: MyChart Encounter I called patient back to get her rescheduled, in office with Katty at [facility] Able to close encounter. Xenia Montano MA October 09, 2023 2:31 PM 2:31 PM [facility]04-25-2024 Miscellaneous Notes* Telephone Encounter - Xenia Montano MA - 10/09/2023 2:31 PM EDT Items addressed in this encounter: MyChart Encounter I called patient back to get her rescheduled, in office with Katty at [facility] Able to close encounter. Xenia Montano MA October 09, 2023 2:31 PM 2:31 PM documented [facility] encounterMi[facility]04-[facility]24 Telephone encounter Note * Telephone Encounter - [...] October 09, 2023 2:05 PM 2:05 PM [facility]04-25[facility] Miscellaneous Notes* Telephone Encounter - Xenia Montano [...] 2:05 PM 2:05 PM documented in this encounterMiami Valley Hospital04-25-2024 Instructions* Patient Instructions* Katty Steiner, CASEY.MACHINE WHITENER - 10/09/2023 1:31 PM EDT Continue Gabapentin [...] maintained on it by Dr Marley and COAL PASSER's working with her. She is compliant with the pain management agreement and there have been no signs of medication misuse, abuse or diversion. Follow-up in 2 months-in office visit Katty Steiner APRN.CNP documented in this encounterMiami Valley Hospital04-25-2024 History of Present illness Narrative* Katty Steiner APRN.CNP - 10/09/2023 1:30 PM EDT This video visit was performed via [employer] - [place]. Patient consented to receive health care services via virtual visit for this encounter Provider Location[facility] Patient Location: Patient Home or Place of Residence I have communicated my name and active licensure. The patient's identity and physical location wereverified at the time of this visit. Either the patient or their legal medical service representative has been informed of the risks and benefits of -- and alternatives to -- treatment through a remote evaluation andconsents to proceed with the evaluation remotely. Chief Complaint: Pain History of Present Illness: Roseanna Jones is a 63 year old year old female being seen at [facility] for a evaluation and/or [...] maintained on it by Dr Marley and COAL PASSER's working with her. She is compliant with the pain management agreement and there have been no signs of medication misuse, abuse or diversion. Follow-up in 2 months-in office visit Katty Steiner APRN.MACHINE WHITENER documented in this encounterMiami Valley Hospital04-25-2024 Telephone encounter Note * Telephone Encounter - Xenia Montano MA - 10/09/2023 7:13 AM EDT Items addressed in this encounter: MyChart Encounter Soapp questionnaire sent Items addressed in this encounter: Virtual Visit Pre Check In Virtual visit precharting done Able to close encounter. Xenia Montano MA October 09, 2023 7:13 AM 7:13 AM Xenia Montano MA October 09, 2023 7:13 AM 7:13 AM [facility]04-[facility] Miscellaneous Notes* Telephone Encounter - Xenia Montano [...] 7:13 AM 7:13 AM documented in this encounterMiami [facility] Hospital04-24-2024 Miscellaneous Notes* Telephone Encounter - Xenia Montano MA - 10/08/2023 8:47 AM EDT Items addressed in this encounter: Health Maintenance Review Able to close encounter. Xenia Montano MA October 08, 2023 8:47 AM 8:47 AM documented in this encounterMiami Valley Hospital04-24-2024 Telephone encounter Note * Telephone Encounter - Xenia Montano MA - 10/08/2023 8:47 AM EDT Items addressed in this encounter: Health Maintenance Review Able to close encounter. Xenia Montano MA October 08, 2023 8:47 AM 8:47 AM [facility]04-04-2024 Miscellaneous Notes* Telephone Encounter - Xenia Montano MA - 09/18/2023 10:50 AM EDT Items addressed in this encounter: Health Maintenance Review Able to close encounter. Xenia Montano MA September 18, 2023 10:50 AM 10:50 AM documented in this encounterMiami [facility] Hospital03-08-2024 Miscellaneous Notes* Telephone Encounter - Xenia Montano MA - 08/22/2023 3:26 PM EST Items addressed in this encounter: Health Maintenance Review Able to close encounter. Xenia Montano MA August 22, 2023 3:27 PM 3:27 PM documented in this encounterMiami [facility] Hospital02-29-2024 Miscellaneous Notes* Telephone Encounter - Xenia Montano MA - 08/14/2023 3:06 PM EST Items addressed in this encounter: MyChart Encounter I scheduled pt a 1 month follow up virtual visit with Katty. Able to close encounter. Xenia Montano MA August 14, 2023 3:06 PM 3:06 PM documented in this encounterMiami Valley Hospital02-29-2024 Instructions* Patient Instructions* Katty Steiner APRN.MACHINE WHITENER - 08/14/2023 3:01 PM EST Continue Gabapentin [...] maintained on it by Dr Marley and CO[employer] PASSER's working with her. She is compliant with the pain management agreement and there have been no signs of medication misuse, abuse or diversion. Follow-up in 1 month Katty Steiner APRN.CNP documented in this encounterMiami Valley Hospital02-29-2024 History of Present illness Narrative* Katty Steiner APRN.CNP - 08/14/2023 2:45 PM EST This video visit was performed via [employer]. Patient consented to receive health care services via virtual visit for this encounter Provider [facility] Patient Location: Patient Home or Place of Residence I have communicated my name and active licensure. The patient's identity and physical location wereverified at the time of this visit. Either the patient or their legal medical service representative has been informed of the risks and benefits of -- and alternatives to -- treatment through a remote evaluation andconsents to proceed with the evaluation remotely. Chief Complaint: Pain History of Present Illness: Roseanna Jones is a 63 year old year old female being seen at [facility] for a evaluation and/or [...] maintained on it by Dr Marley and CO[employer] PASSER's working with her. She is compliant with the pain management agreement and there have been no signs of medication misuse, abuse or diversion. Follow-up in 1 month Katty Steiner APRN.CNP documented in this encounterMiami Valley Hospital02-29-2024 Miscellaneous Notes* Telephone Encounter - Xenia Montano [...] 6:50 AM 6:50 AM documented in this encounterMiami Valley Hospital02-02-2024 Miscellaneous Notes* Telephone Encounter - Xenia Montano MA - 07/18/2023 10:11 AM EST Items addressed in this encounter: Health Maintenance Review Able to close encounter. Xenia Montano MA July 18, 2023 10:11 AM 10:11 AM documented in this encounterMiami Valley Hospital01-21-2024 Miscellaneous Notes* Telephone Encounter - Katty Steiner APRN.CNP - 07/06/2023 2:14 PM EST Please call the pt for a UDS-Pain contract needs signed. Thank you documented in this encounterMiami Valley Hospital12-21-2023 Instructions* Patient Instructions* Katty Steiner APRN.CNP - 06/05/2023 11:00 AM EST Continue Gabapentin Continue to follow-up with Dr. Mcbride(At [facility]) - every 3-6 months. pt needs to [...] month Katty Steiner APRN.CNP documented in this encounterMiami Valley Hospital12-21-2023 History of Present illness Narrative* Katty Steiner APRN.CNP - 06/05/2023 10:35 AM EST This video visit was performed via [employer]. Patient consented to receive health care services via virtual visit for this encounter Provider Location[facility] Patient Location: Patient Home or Place of Residence I have communicated my name and active licensure. The patient's identity and physical location wereverified at the time of this visit. Either the patient or their legal medical service representative has been informed of the risks and benefits of -- and alternatives to -- treatment through a remote evaluation andconsents to proceed with the evaluation remotely. Chief Complaint: Pain History of Present Illness: *Pt was sent an arGEN-X Link Roseanna Jones is a 63 year old year old female being seen at [facility] for a evaluation and/or management of her chronic pain. Roseanna Jones last had an office visit on 02/11/[address] Marley and a virtual visit with me on 03/14/23. Since the last visit her pain level has remained stable. Pt needs to call and make appt with Dr. Mcbride(l d rn at [facility])office. The pt saw Dr. Goncalves [...] month Katty Steiner APRN.QUINCY documented in this encounterMiami Valley Hospital12-21-2023 Miscellaneous Notes* Telephone Encounter - Xenia Montano [...] 10:21 AM 10:21 AM documented in this encounterMiami Valley Hospital11-30-2023 Telephone encounter Note * Telephone Encounter - Mariel Flores PSS - 05/15/2023 3:03 PM EST CD READY FOR HIDE WASHER AT [facility] PT [facility]11-30-2023 Miscellaneous Notes* Telephone Encounter - Mariel Flores PSS - 05/15/2023 3:03 PM EST CD READY FOR HIDE WASHER AT [facility] FOR PT * Telephone Encounter - Donn Javed - 05/14/2023 2:48 PM EST Patient verified by name and . She is requesting to have her MRI from 03/25/23 burned onto a disc. Please advise patient when its ready for peanut picker. documented in this encounterMiami Valley Hospital11-29-2023 Miscellaneous Notes* Telephone Encounter - Xenia Montano MA - 05/14/2023 2:59 PM EST Items addressed in this encounter: MyChart Encounter I scheduled pt a 1 month follow up virtual visit with Katty. Able to close encounter. Xenia Montano MA May 14, 2023 2:59 PM 2:59 PM documented in this encounterMiami Valley Hospital11-29-2023 Telephone encounter Note * Telephone Encounter - Donn Javed - 05/14/2023 2:48 PM EST Patient verified by name and . She is requesting to have her MRI from 03/25/23 burned onto a disc. Please advise patient when its ready for peanut picker. [facility] Miscellaneous Notes* Telephone Encounter - Xenia Montano [...] 2:43 PM 2:43 PM documented in this encounterMiami Valley Hospital11-29-2023 Miscellaneous Notes* Telephone Encounter - Katty Steiner APRN.CNP - 05/14/2023 2:40 PM EST Please call Dr. Goncalves's office and make sure they have all of the information they need. Pt had aLumbar MRI on 03/25/23 and needs an appt. Thank you documented in this encounterMiami Valley Hospital11-29-2023 Instructions* Patient Instructions* Katty Steiner APRN.CNP - [...] month Katty Steiner APRN.CNP documented in this encounterMiami Valley Hospital11-29-2023 History of Present illness Narrative* Katty Steiner APRN.CNP - 05/14/2023 2:28 PM EST This video visit was performed via [email or web address] video visit. Patient consented to receive health care services via virtual visit for this encounter Provider Location: [facility] Patient Location: Patient Home or Place of Residence I have communicated my name and active licensure. The patient's identity and physical location wereverified at the time of this visit. Either the patient or their legal medical service representative has been informed of the risks and benefits of -- and alternatives to -- treatment through a remote evaluation andconsents to proceed with the evaluation remotely. Chief Complaint: Pain History of Present Illness: Roseanna Jones is a 63 year old year old female being seen at [facility] for a evaluation and/or management of her chronic pain. Roseanna Jones last had an office visit on 02/11/[address] Marley and a virtual visit with me on 03/14/23. Since the last visit her pain level has remained stable. Pt needs to call and make appts at Dr. Goncalves and Dr. Mcbride(l d rn at [facility])office. VAS: 7/10 Pain Location: back, neck, leg, [...] month Katty Steiner APRN.CNP documented in this encounterMiami Valley Hospital11-29-2023 Miscellaneous Notes* Telephone Encounter - Xenia Motnano MA - 05/14/2023 8:37 AM EST Items addressed in this encounter: Virtual Visit Pre Check In Virtual visit precharting done Items addressed in this encounter: MyChart Encounter [employer]app questionnaire sent Able to close encounter. Xenia Montano MA May 14, 2023 8:37 AM 8:37 AM Xenia Montano MA May 14, 2023 8:37 AM 8:37 AM documented in this encounterMiami Valley Hospital11-01-2023 Miscellaneous Notes* Telephone Encounter - Xenia Montano MA - 04/16/2023 1:38 PM EDT Items addressed in this encounter: Health Maintenance Review Able to close encounter. Xenia Montano MA April 16, 2023 1:38 PM 1:38 PM documented in this encounterMiami Valley Hospital10-25-2023 Miscellaneous Notes* Telephone Encounter - Xenia Montano MA - 04/09/2023 11:29 AM EDT Items addressed in this encounter: Fax/Forms Referral faxed to dr goncalves with 2 ov notes and demoagraphics. Able to close encounter. Xenia Montano MA April 09, 2023 11:29 AM 11:29 AM documented in this encounterMiami Valley Hospital10-25-2023 Miscellaneous Notes* Telephone Encounter - Xenia Montano MA - 04/09/2023 11:21 AM EDT Items addressed in this encounter: Fax/Forms I faxed referral to Dr Mcbride at [facility] with 2 ov notes, and demoagraphics. Able to close encounter. Xenia Montano MA April 09, 2023 11:21 AM 11:21 AM documented in this encounterMiami Valley Hospital10-23-2023 Miscellaneous Notes* Telephone Encounter - Xenia Montano MA - 04/07/2023 1:46 PM EDT Items addressed in this encounter: Other Indexed medical records from [facility]. Able to close encounter. Xenia Montano MA April 07, 2023 1:46 PM 1:46 PM documented in this encounterMiami Valley Hospital10-23-2023 Miscellaneous Notes* Telephone Encounter - Xenia Montano MA - 04/07/2023 11:17 AM EDT Items addressed in this encounter: Telephone Encounter I called [facility] to follow up on pt notes I requested and talked to vikki, she stated that they faxed them this morning at 10:45. Able to close encounter. Xenia Montano MA April 07, 2023 11:17 AM 11:17 AM documented in this encounterMiami Valley Hospital10-20-2023 Instructions* Patient Instructions* Katty Steiner APRN.CNP - [...] done on 03/25/23 Obtain medical records from [facility] Continue Fentanyl 25 mcg patches Discussed lab work CRP, sed rate, RA factor F/u Dr. Goncalves- Pt requesting a a referral Follow-up in 1 month Katty Steiner APRN.CNP documented in this encounterMiami Valley Hospital10-20-2023 Miscellaneous Notes* Telephone Encounter - Xenia Montano MA - 04/04/2023 1:16 PM EDT Items addressed in this encounter: MyChart Encounter I scheduled pt a 1 month follow up virtual visit with Katty. Able to close encounter. Xenia Montano MA April 04, 2023 1:16 PM 1:16 PM documented in this encounterMiami Valley Hospital10-20-2023 History of Present illness Narrative* Katty Steiner APRN.MACHINE WHITENER - 04/04/2023 1:10 PM EDT This video visit was performed via [email or web address] video visit. Patient consented to receive health care services via virtual visit for this encounter Provider Location[facility] Patient Location: Patient Home or Place of Residence I have communicated my name and active licensure. The patient's identity and physical location wereverified at the time of this visit. Either the patient or their legal medical service representative has been informed of the risks and benefits of -- and alternatives to -- treatment through a remote evaluation andconsents to proceed with the evaluation remotely. Chief Complaint: Pain History of Present Illness: Roseanna Jones is a 62 year old year old female being seen at [facility] for a evaluation and/or management of her chronic pain. Roseanna Jones last had an office visit on 02/11/[address] Marley and a virtual visit with me on 03/14/23. Since the last visit her pain level has remained stable. She is requesting a referral to Dr. Goncalves and Dr. Mcbride(l d rn at [facility]). VAS: 7/10 Pain Location: back, neck, leg, [...] done on 03/25/23 Obtain medical records from [facility] Continue Fentanyl 25 mcg patches Discussed lab work CRP, sed rate, RA factor F/u Dr. Goncalves- Pt requesting a a referral Follow-up in 1 month Katty Steiner APRN.CNP documented in this encounterMiami Valley Hospital10-20-2023 Miscellaneous Notes* Telephone Encounter - Xenia Montano MA - 04/04/2023 1:00 PM EDT Items addressed in this encounter: Other I called to check on therapy notes that was request, I had to leave a message on their secure voicemail. Able to close encounter. Xenia Montano MA April 04, 2023 1:00 PM 1:00 PM documented in this encounterMiami Valley Hospital10-19-2023 Miscellaneous Notes* Telephone Encounter - Xenia Montano [...] 5:18 PM 5:18 PM documented in this encounterMiami Valley Hospital10-10-2023 NoteHNO ID: [id number] Author: Kyleigh Cortes RT(R) Service: ? Author [...] Exam(s) Completed: Spine: Lumbar spine SIGNATURE: RT Lobo(Percy) PATIENT NAME: Roseanna Jones DATE: March 25, 2023 TIME: 12:54 [facility]10-10-2023 History of Present illness Narrative* Kyleigh Cortes [...] Exam(s) Completed: Spine: Lumbar spine SIGNATURE: RT Lobo(Percy) PATIENT NAME: Roseanna Jones DATE: March 25, 2023 TIME: 12:54 PM documented in this encounterMiami Valley Hospital09-29-2023 Instructions* Patient Instructions* Katty Steiner APRN.CNP - 03/14/2023 4:46 PM EDT Weaning prescription [...] done on 03/25/23 Obtain medical records from [facility] Continue Fentanyl 25 mcg patches Previously ordered lab work CRP, sed rate, RA factor-will be done on 03/25/23 Follow-up in 1 month Katty Steiner APRN.CNP documented in this encounterMiami Valley Hospital09-29-2023 Miscellaneous Notes* Telephone Encounter - Xenia Montano MA - 03/14/2023 3:40 PM EDT Items addressed in this encounter: MyChart Encounter I scheduled pt follow up virtual visits with Katty. Able to close encounter. Xenia Montano MA March 14, 2023 3:40 PM 3:40 PM documented in this encounterMiami Valley Hospital09-29-2023 History of Present illness Narrative* Katty Steiner APRN.CNP - 03/14/2023 1:32 PM EDT This video visit was performed via [email or web address] video visit. Patient consented to receive health care services via virtual visit for this encounter Provider Location: Non-[facility] Patient Location: Patient Home or Place of Residence I have communicated my name and active licensure. The patient's identity and physical location wereverified at the time of this visit. Either the patient or their legal medical service representative has been informed of the risks and benefits of -- and alternatives to -- treatment through a remote evaluation andconsents to proceed with the evaluation remotely. Chief Complaint: Pain History of Present Illness: *Amwell Link sent to the pt Roseanna Jones is a 62 year old year old female being seen at [facility] for a evaluation and/or [...] pain is persistent. Medications are helping Roseanna oJnes to have an improved quality of life. [...] done on 03/25/23 Obtain medical records from [facility] Continue Fentanyl 25 mcg patches Previously ordered lab work CRP, sed rate, RA factor-will be done on 10/10/23 Follow-up in 1 month Katty Steiner APRN.CNP documented in this encounterMiami Valley Hospital09-25-2023 Miscellaneous Notes* Telephone Encounter - Katty Steiner [...] provided. For clinical consultation, please call . @[email or web address]([id number]@ Lab Results Component Value Date SUMM FINAL [...] call . Please review and advise. Dalia Posey RN documented in this encounterMiami Valley Hospital09-07-2023 Miscellaneous Notes* Telephone Encounter - Xenia Montano MA - 02/20/2023 7:57 AM EDT Items addressed in this encounter: Health Maintenance Review Able to close encounter. Xenia Montano MA February 20, 2023 7:57 AM 7:57 AM documented in this encounterMiami Valley Hospital08-29-2023 History of Present illness Narrative* Joyce Marley DO - 02/11/2023 11:00 AM EDTSummary: Pain Management follow-up DATE: February 11, 2023 Chief Complaint: back, neck,left leg, arms History of Present Illness: Roseanna Jones is a 62 year old female being seen at [facility] for a evaluation and/or [...] month She had PT in 2021 at [facility]. She is taking the [...] Intentional overdose of drug in tablet form (hcc) Opioid dependence, continuous (formerly [facility]) Encounter for long-term (current) use of medications [...] encounter was entered by Genet Kimball, medical assisting program director for Dr. Joyce Marley on February 11, [...] Marley. February 11, 2023. documented in this encounterMiami Valley Hospital08-29-2023 Instructions* Patient Instructions* Joyce Marley DO - [...] and without contrast Obtain medical records from [facility] Start Fentanyl 25 mcg patches - start applying patches 24 hours after stopping the MS Contin Order lab work CRP, sed rate, RA factor Follow-up in 1 month with COAL PASSER documented in this encounterMiami Valley Hospital07-28-2023 Miscellaneous Notes* Telephone Encounter - Xenia Montano MA - 01/10/2023 11:07 AM EDT Items addressed in this encounter: Other I scheduled patient a 1 month follow up virtual visit with Katty. Able to close encounter. Xenia Montano MA January 10, 2023 11:07 AM 11:07 AM documented in this encounterMiami Valley Hospital07-27-2023 Miscellaneous Notes* Telephone Encounter - Xenia Montano MA - 01/09/2023 3:15 PM EDT Items addressed in this encounter: Virtual Visit Pre Check In Virtual visit precharting done Able to close encounter. Xenia Montano MA January 09, 2023 3:15 PM 3:15 PM documented in this encounterMiami Valley Hospital06-29-2023 Instructions* Patient Instructions* Katty Steiner APRN.CNP - 12/12/2022 1:30 PM EDT Continue MS Contin and percocet(mmeq=45) Continue Diamox prn Continue Zanaflex Rx'D by PCP Follow-up with Dr. Mcbride(At [facility]) Continue Gabapentin Encouraged to talk to PCP (Dr. Randhawa) about your gastroparesis F/U with Dr. Harper (IT bands) Follow-up with Dr. Butler (neurologist) Follow-up in 1 month Katty Steiner APRN.CNP documented in this encounterMiami Valley Hospital06-29-2023 History of Present illness Narrative* Katty Steiner APRN.CNP - 12/12/2022 1:26 PM EDT This video visit was performed via [email or web address] video visit. Patient consented to receive health care services via virtual visit for this encounter Provider [facility] Patient Location: Patient Home or Place of Residence I have communicated my name and active licensure. The patient's identity and physical location wereverified at the time of this visit. Either the patient or their legal medical service representative has been informed of the risks and benefits of -- and alternatives to -- treatment through a remote evaluation andconsents to proceed with the evaluation remotely. Chief Complaint: Pain History of Present Illness: Roseanna Jones is a 62 year old year old female being seen at [facility] for a evaluation and/or [...] Take 4 mg by mouth twice daily. ktyqohhon-yabetlye-eonplnnogf (STALEVO 100) 25-100-200 mg per tablet Take [...] month Katty Steiner APRN.CNP documented in this encounterMiami Valley Hospital05-11-2023 Instructions* Patient Instructions* Katty Steiner APRN.CNP - 10/24/2022 1:53 PM EDT Continue MS Contin and percocet(mmeq=45) Continue Diamox prn Continue Zanaflex Rx'D by PCP Follow-up with Dr. Mcbride(At [facility]) Continue Gabapentin Encouraged to talk to PCP (Dr. Randhawa) about your gastroparesis F/U with Dr. Harper (IT bands) Follow-up with Dr. Butler (neurologist) Follow-up in 1 month Katty Steiner APRN.CNP documented in this encounterMiami Valley Hospital05-11-2023 History of Present illness Narrative* Katty Steiner, GRADE SCHOOL TEACHER.MACHINE WHITENER - 10/24/2022 1:43 PM EDT This video visit was performed via [email or web address] video visit. Patient consented to receive health care services via virtual visit for this encounter Provider [facility] Patient Location: Patient Home or Place of Residence I have communicated my name and active licensure. The patient's identity and physical location wereverified at the time of this visit. Either the patient or their legal medical service representative has been informed of the risks and benefits of -- and alternatives to -- treatment through a remote evaluation andconsents to proceed with the evaluation remotely. Chief Complaint: Pain History of Present Illness: Roseanna Jones is a 62 year old year old female being seen at [facility] for a evaluation and/or [...] Take 4 mg by mouth twice daily. yjyerxeqe-wbrypgos-jbdpppoxwj (STALEVO 100) 25-100-200 mg per tablet Take [...] month Katty Steiner APRN.CNP documented [facility] encounter[facility] Instructions* Patient Instructions* Katty Steiner APRN.CNP - 08/29/2022 1:52 PM EDT Continue MS Contin and percocet(mmeq=45) Continue Diamox prn Continue Zanaflex Rx'D by PCP Follow-up with Dr. Mcbride(At [facility]-Lupus/RA) Continue Gabapentin. Encouraged to talk to PCP (Dr. Randhawa) about your gastroparesis F/U with Dr. Harper (IT bands) Follow-up with Dr. Butler (neurologist) Follow-up in 1 month Katty Steiner APRN.CNP documented in this encounterMi[facility]03-16-[facility]23 History of Present illness Narrative* Katty Steiner APRN.CNP - 08/29/2022 1:39 PM EDT This video visit was performed via [email or web address] video visit. Patient consented to receive health care services via virtual visit for this encounter Provider [facility] Patient Location: Patient Home or Place of Residence I have communicated my name and active licensure. The patient's identity and physical location wereverified at the time of this visit. Either the patient or their legal medical service representative has been informed of the risks and benefits of -- and alternatives to -- treatment through a remote evaluation andconsents to proceed with the evaluation remotely. Chief Complaint: Pain History of Present Illness: Roseanna Jones is a 62 year old year old female being seen at [facility] for a evaluation and/or [...] Take 4 mg by mouth twice daily. wlzhwadle-ezrzhtic-vntqerewsx (STALEVO 100) 25-100-200 mg per tablet Take [...] Dr. Harper (IT bands) Follow-up with Dr. Btuler (neurologist) Follow-up in 1 month Katty Steiner APRN.CNP documented in this encounterMiami [facility] Hospital02-16-2023 Instructions* Patient Instructions* Katty Steiner APRN.CNP - 08/01/2022 2:05 PM EST Continue MS Contin and percocet(mmeq=45) Continue Diamox prn Continue Zanaflex Rx'D by PCP Follow-up with Dr. Mcbride(At [facility]) Continue Gabapentin. Encouraged to talk to PCP (Dr. Randhawa) about your gastroparesis F/U with Dr. Harper (IT bands) Follow-up with Dr. Butler (neurologist) Follow-up in 1 month Katty Steiner APRN.CNP documented in this encounterMiami [facility] Hospital02-16-2023 History of Present illness Narrative* Katty Steiner APRN.CNP - 08/01/2022 1:59 PM EST This video visit was performed via [email or web address] video visit. Patient consented to receive health care services via virtual visit for this encounter Provider Location[facility] Patient Location: Patient Home or Place of Residence Risks, benefits, and limitations of receiving care virtually were discussed with the patient. The patient expressed understanding and is willing to proceed. Chief Complaint: Pain History of Present Illness: Roseanna Jones is a 62 year old year old female being seen at [facility] for a evaluation and/or management of her chronic pain. Roseanna Jones last had an office visit on 07/25/[address] Marley, virtual visit on 07/04/22 by me. Sincethe last visit her pain [...] Take 4 mg by mouth twice daily. moqmzlkdu-osezhayk-omdnebhdug (STALEVO 100) 25-100-200 mg per tablet Take [...] month Katty Steiner APRN.CNP documented in this encounterMi[facility]01-19-2023 Instructions* Patient Instructions* Katty Steiner APRN.CNP - 07/04/2022 1:12 PM EST Continue MS Contin and percocet(mmeq=45) Continue Diamox prn Continue Zanaflex Rx'D by PCP Follow-up with Dr. Mcbride(At [facility]-Lupus/RA) Continue Gabapentin. Encouraged to talk to PCP (Dr. Randhawa) about your gastroparesis F/U with Dr. Harper (IT bands) Follow-up with Dr. Butler (neurologist) Follow-up in 1 month Katty Steiner APRN.CNP documented in this encounterMiami [facility] Hospital01-19-2023 History of Present illness Narrative* Katty Steiner APRN.CNP - 07/04/2022 1:06 PM EST This video visit was performed via [email or web address] video visit. Patient consented to receive health care services via virtual visit for this encounter Provider Location: Non-[facility] Facility Patient Location: Patient Home or Place of Residence Risks, benefits, and limitations of receiving care virtually were discussed with the patient. The patient expressed understanding and is willing to proceed. Chief Complaint: Pain History of Present Illness: Roseanna Jones is a 62 year old year old female being seen at [facility] for a evaluation and/or [...] Take 4 mg by mouth twice daily. uohhmyqra-ihjwyiqz-slkomgvzxn (STALEVO 100) 25-100-200 mg per tablet Take [...] Rx'D by PCP Follow-up with Dr. Mcbride(At [facility]/[place]) Continue Gabapentin. Encouraged to talk to PCP (Dr. Randhawa) about your gastroparesis F/U with Dr. Harper (IT bands) Follow-up with Dr. Butler (neurologist) Follow-up in 1 month Katty Steiner APRN.CNP documented in this encounterMiami [facility] Hospital01-06-2023 Miscellaneous Notes* Telephone Encounter - Katty Steiner [...] advise. Komal Kennedy RN documented in this encounterMiami Valley Hospital12-21-2022 Miscellaneous Notes* Telephone Encounter - Katty Steiner [...] advise. Dalia Posey RN documented in this encounterMiami Valley Hospital12-16-2022 Instructions* Patient Instructions* Katty Steiner APRN.CNP - 05/31/2022 1:18 PM EST Continue MS Contin and percocet(mmeq=45) Continue Diamox prn Continue Zanaflex Rx'D by PCP Follow-up with Dr. Mcbride(At [facility]Lupus/RA) Continue Gabapentin. Encouraged to talk to PCP (Dr. Randhawa) about your gastroparesis F/U with Dr. Harper (IT bands) Follow-up with Dr. Butler (neurologist) Follow-up in 1 month Katty Steiner APRN.CNP documented in this encounterMiami Valley Hospital12-16-2022 History of Present illness Narrative* Katty Steiner APRN.CNP - 05/31/2022 1:14 PM EST This video visit was performed via [email or web address] video visit. Patient consented to receive health care services via virtual visit for this encounter Provider Location: Non-[facility] Patient Location: Patient Home or Place of Residence Risks, benefits, and limitations of receiving care virtually were discussed with the patient. The patient expressed understanding and is willing to proceed. Chief Complaint: Pain History of Present Illness: Roseanna Jones is a 62 year old year old female being seen at [facility] for a evaluation and/or [...] Take 4 mg by mouth twice daily. jkgtxjmcy-kgucugog-dltppfzxln (STALEVO 100) 25-100-200 mg per tablet Take [...] month Katty Steiner APRN.CNP documented in this encounterMiami [facility] Hospital12-08-2022 Miscellaneous Notes* Telephone Encounter - Lamar Daugherty APRN.CNS - 05/23/2022 10:10 AM EST The following [...] advise. Komal Kennedy RN documented in this encounterMiami [facility] Hospital11-11-2022 Instructions* Patient Instructions* Katty Steinre APRN.CNP - 04/26/2022 1:43 PM EST Continue MS Contin and percocet(mmeq=45) Continue Diamox prn Continue Zanaflex Rx'D by PCP Follow-up with Dr. Mcbride(At [facility]) Continue Gabapentin. Encouraged to talk to PCP (Dr. Randhawa) about your gastroparesis F/U with Dr. Harper (IT bands) Follow-up with Dr. Butler (neurologist) Follow-up in 1 month Katty Steiner APRN.CNP documented in this encounterMiami Valley Hospital11-11-2022 History of Present illness Narrative* Katty Steiner APRN.CNP - 04/26/2022 1:35 PM EST This video visit was performed via [email or web address] video visit. Patient consented to receive health care services via virtual visit for this encounter Provider [facility] Patient Location: Patient Home or Place of Residence Risks, benefits, and limitations of receiving care virtually were discussed with the patient. The patient expressed understanding and is willing to proceed. Chief Complaint: Pain History of Present Illness: Roseanna Jones is a 61 year old year old female being seen at [facility] for a evaluation and/or [...] Take 4 mg by mouth twice daily. euqqycdyx-dgjrwbde-blvxmhyzyn (STALEVO 100) 25-100-200 mg per tablet Take [...] month Katty Steiner APRN.CNP documented in this encounterMiami [facility] Hospital10-14-2022 Miscellaneous Notes* Telephone Encounter - Komal Kennedy RN - 03/29/2022 8:07 AM EDT Pt submitted UDS on 03/28/22. Komal Kennedy RN March 29, 2022 8:08 AM documented in this encounterMiami Valley Hospital10-11-2022 Instructions* Patient Instructions* Katty Steiner APRN.CNP - 03/26/2022 2:00 PM EDT Pt. To submit UDS within 5-7 days. Continue MS Contin and percocet(mmeq=45) Continue Diamox prn Continue Zanaflex Rx'D by PCP Follow-up with Dr. Mcbride(At [facility]upus/RA) Continue Gabapentin. Encouraged to talk to PCP (Dr. Randhawa) about your gastroparesis F/U with Dr. Harper (IT bands) Follow-up with Dr. Butler (neurologist) Follow-up in 1 month Katty Steiner APRN.CNP documented in this encounterMiami Valley Hospital10-11-2022 History of Present illness Narrative* Katty Steiner APRN.CNP - 03/26/2022 1:55 PM EDT This video visit was performed via [email or web address] video visit. Patient consented to receive health care services via virtual visit for this encounter Provider [facility] Patient Location: Patient Home or Place of Residence Risks, benefits, and limitations of receiving care virtually were discussed with the patient. The patient expressed understanding and is willing to proceed. Chief Complaint: Pain History of Present Illness: Roseanna Jones is a 61 year old year old female being seen at [facility] for a evaluation and/or [...] Medication Sig dextromethorphan Hbr/quinidine (DEXTROMETHORPHAN-QUINIDINE ORAL) Nuedexta 20/10 Active [...] Take 4 mg by mouth twice daily. wgsowbsjq-nxmqxows-jtgylauhwn (STALEVO 100) 25-100-200 mg per tablet Take [...] month Katty Steiner APRN.QUINCY documented in this encounterMiami Valley Hospital09-12-2022 Miscellaneous Notes* Telephone Encounter - Komal Kennedy RN - 02/25/2022 11:00 AM EDT Attempted to call pt. LMOM for pt to call the office back. Komal Kennedy RN February 25, 2022 11:01 AM * Telephone Encounter - Katty Steiner APRN.CNP - 02/22/2022 2:52 PM EDT Please call the pt next week for a UDS. Thank you documented in this encounterMiami Valley Hospital09-09-2022 Instructions* Patient Instructions* Katty Steiner APRN.CNP - 02/22/2022 2:07 PM EDT Continue MS Contin and percocet(mmeq=45) Continue Diamox prn Continue Zanaflex Rx'D by PCP Follow-up with Dr. Mcbride(At [facility]) Continue Gabapentin. Encouraged to talk to PCP (Dr. Randhawa) about your gastroparesis F/U with Dr. Harper (IT bands) Follow-up with Dr. Butler (neurologist) Follow-up in 1 month Katty Steiner APRN.CNP documented in this encounterMiami Valley Hospital09-09-2022 History of Present illness Narrative* Katty Steiner APRN.CNP - 02/22/2022 2:04 PM EDT This video visit was performed via [email or web address] video visit. Patient consented to receive health care services via virtual visit for this encounter Provider [facility] Patient Location: Patient Home or Place of Residence Risks, benefits, and limitations of receiving care virtually were discussed with the patient. The patient expressed understanding and is willing to proceed. Chief Complaint: Pain History of Present Illness: Roseanna Jones is a 61 year old year old female being seen at [facility] for a evaluation and/or [...] month Katty Steiner APRN.QUINCY documented in this encounterMiami Valley Hospital08-25-2022 History of Present illness Narrative* Adelita Juárez Reji, DO - 02/07/2022 1:42 PM EDT Images from [...] patient up at night, saw provider in [place] about possibility of botox and states [facility] only does neck/migraine botox. Has not had [...] fluid collections adjacent to the iliotibial band. 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 Impression: Encounter Diagnosis ICD-10-CM 1. [...] plan. All questions answered. documented in this encounterMiami Valley Hospital08-12-2022 Instructions* Patient Instructions* Katty Steiner APRN.CNP - 01/25/2022 8:54 AM EDT Continue MS Contin and percocet(mmeq=45) Continue Diamox prn Continue Zanaflex Rx'D by PCP Follow-up with Dr. Mcbride(At [facility]) Continue Gabapentin. Encouraged to talk to PCP (Dr. Randhawa) about your gastroparesis F/U with Dr. Harper (IT bands) Follow-up with Dr. Butler (neurologist) Follow-up in 1 month -Please call [phone] option 1 to schedule appointments Katty Steiner APRN.CNP documented in this encounterMiami Valley Hospital08-12-2022 History of Present illness Narrative* Katty Steiner APRN.CNP - 01/25/2022 8:53 AM EDT . documented in this encounterMiami Valley Hospital08-02-2022 Instructions* Patient Instructions* Katty Steiner APRN.CNP - 01/15/2022 4:59 PM EDT Continue MS Contin and percocet(mmeq=45) Continue Diamox prn Continue Zanaflex Rx'D by PCP Follow-up with Dr. Mcbride(At [facility]) Continue Gabapentin. Encouraged to talk to PCP (Dr. Randhawa) about your gastroparesis F/U with Dr. Harper (IT bands) Follow-up with Dr. Butler (neurologist) Follow-up in 1 month -Please call [phone] option 1 to schedule appointments Katty Steiner APRN.CNP documented in this [facility]08-02-[facility] History of Present illness Narrative* Katty Steiner APRN.CNP - 01/15/2022 4:45 PM EDTSummary: F/u This video visit was performed via [email or web address] video visit. Patient consented to receive health care services via virtual visit for this encounter Provider Location: [facility] Patient Location: Patient Home or Place of Residence Risks, benefits, and limitations of receiving care virtually were discussed with the patient. The patient expressed understanding and is willing to proceed. Chief Complaint: Pain History of Present Illness: Roseanna Jones is a 61 year old year old female being seen at [facility] for a evaluation and/or [...] (neurologist) Follow-up in 1 month -Please call [phone] option 1 to schedule appointments Katty Steiner APRN.CNP documented in this encounterMiami Valley Hospital07-21-2022 Miscellaneous Notes* Telephone Encounter - Yoselin Worrell [...] your help! Maude Pruitt documented in this encounterMiami Valley Hospital07-12-2022 Miscellaneous Notes* Telephone Encounter - Evelyn Simon RN - 12/25/2021 8:49 AM EDT Patient called the office stating she missed her virtual appt today due to not being aware they sheneeded to log into [employer]. Patient is in need of refills. [employer] help desk # given to patient. Verbalized the importance of the patient signing up for [employer]. Call transferred to energy scheduler. Patient phones requesting refills as follows: Pending [...] advise. Evelyn Simon RN documented in this encounterMiami Valley Hospital12-23-2015 History of Past illness Narrative* Problem Noted Date Resolved Date Nausea 06/07/2015 06/07/[address] scan 06/07/201506/07 Essential hypertension, malignant 03/20/2016 documented as of this encounter (statuses as of 10/27/2021) [facility] of [facility] illness Narrative* Problem Noted Date Resolved Date Nausea 06/07/2015 06/07/[address] scan 06/07/201506/07 Essential hypertension, malignant 03/20/2016 documented as of this encounter (statuses as of 11/28/2021) [facility] of [facility] illness Narrative* Problem Noted Date Resolved Date Nausea 06/07/2015 06/07/[address] scan 06/07/201506/07 Essential hypertension, malignant 03/20/2016 documented as of this encounter (statuses as of 12/25/2021) [place] [address]-23-2015 History of Past illness Narrative* Problem Noted Date Resolved Date Nausea 06/07/2015 06/07/[address] scan 06/07/201506/07 Essential hypertension, malignant 03/20/2016 documented as of this encounter (statuses as of 12/26/2021) [address]23-2015 History of Past illness Narrative* Problem Noted Date Resolved Date Nausea 06/07/2015 06/07/[address] scan 06/07/201506/07 Essential hypertension, malignant 03/20/2016 documented as of this encounter (statuses as of 01/03/2022) [address]23-2015 History of Past illness Narrative* Problem Noted Date Resolved Date Nausea 06/07/2015 06/07/[address] scan 06/07/201506/07 Essential hypertension, malignant 03/20/2016 documented as of this encounter (statuses as of 01/15/2022) [address]23-2015 History of Past illness Narrative* Problem Noted Date Resolved Date Nausea 06/07/2015 06/07/[address] scan 06/07/201506/07 Essential hypertension, malignant 03/20/2016 documented as of this encounter (statuses as of 01/29/2022) [facility] Narrative* Problem Noted Date Resolved Date Nausea 06/07/2015 06/07/[address] scan 06/07/201506/07 Essential hypertension, malignant 03/20/2016 documented as of this encounter (statuses as of 02/08/2022) [address]2015 History of Past illness Narrative* Problem Noted Date Resolved Date Nausea 06/07/2015 06/07/[address] scan 06/07/201506/07 Essential hypertension, malignant 03/20/2016 documented as of this encounter (statuses as of 02/22/2022) [facility] Narrative* Problem Noted Date Resolved Date Nausea 06/07/2015 06/07/[address] scan 06/07/201506/07 Essential hypertension, malignant 03/20/2016 documented as of this encounter (statuses as of 02/25/2022) [address]2015 History of Past illness Narrative* Problem Noted Date Resolved Date Nausea 06/07/2015 06/07/[address] scan 06/07/201506/07 Essential hypertension, malignant 03/20/2016 documented as of this encounter (statuses as of 03/26/2022) [address]2015 History of Past illness Narrative* Problem Noted Date Resolved Date Nausea 06/07/2015 06/07/[address] scan 06/07/201506/07 Essential hypertension, malignant 03/20/2016 documented as of this encounter (statuses as of 03/29/2022) [address]23-2015 History of Past illness Narrative* Problem Noted Date Resolved Date Nausea 06/07/2015 06/07/[address] scan 06/07/201506/07 Essential hypertension, malignant 03/20/2016 documented as of this encounter (statuses as of 04/26/2022) [address]23-2015 History of Past illness Narrative* Problem Noted Date Resolved Date Nausea 06/07/2015 06/07/[address] scan 06/07/201506/07 Essential hypertension, malignant 03/20/2016 documented as of this encounter (statuses as of 05/23/2022) [address]23-2015 History of Past illness Narrative* Problem Noted Date Resolved Date Nausea 06/07/2015 06/07/[address] scan 06/07/201506/07 Essential hypertension, malignant 03/20/2016 documented as of this encounter (statuses as of 05/31/2022) [place] [address]23-2015 History of Past illness Narrative* Problem Noted Date Resolved Date Nausea 06/07/2015 06/07/[address] scan 06/07/201506/07 Essential hypertension, malignant 03/20/2016 documented as of this encounter (statuses as of 06/05/2022) [facility] Narrative* Problem Noted Date Resolved Date Nausea 06/07/2015 06/07/[address] scan 06/07/201506/07 Essential hypertension, malignant 03/20/2016 documented as of this encounter (statuses as of 06/22/2022) [address]23-2015 History of Past illness Narrative* Problem Noted Date Resolved Date Nausea 06/07/2015 06/07/[address] scan 06/07/201506/07 Essential hypertension, malignant 03/20/2016 documented as of this encounter (statuses as of 07/04/2022) [address]23-2015 History of Past illness Narrative* Problem Noted Date Resolved Date Nausea 06/07/2015 06/07/[address] scan 06/07/201506/07 Essential hypertension, malignant 03/20/2016 documented as of this encounter (statuses as of 08/01/2022) [address]23-2015 History of Past illness Narrative* Problem Noted Date Resolved Date Nausea 06/07/2015 06/07/[address] scan 06/07/201506/07 Essential hypertension, malignant 03/20/2016 documented as of this encounter (statuses as of 08/29/2022) [address]23-2015 History of Past illness Narrative* Problem Noted Date Resolved Date Nausea 06/07/2015 06/07/[address] scan 06/07/201506/07 Essential hypertension, malignant 03/20/2016 documented as of this encounter (statuses as of 10/24/2022) [facility]arr[facility]* Problem Noted Date Resolved Date Nausea 06/07/2015 06/07/[address] scan 06/07/201506/07 Essential hypertension, malignant 03/20/2016 documented as of this encounter (statuses as of 12/12/2022) [address]23[address]2015 History of Past illness Narrative* Problem Noted Date Diagnosed Date Resolved Date Nausea 06/07/2015 06/07/[address] scan 06/07/2015 1 08/08/2014 Essential hypertension, malignant 03/20/2016 documented as of this encounter (statuses as of 01/09/2023) [address]23[address]2015 History of Past illness Narrative* Problem Noted Date Diagnosed Date Resolved Date Nausea 06/07/2015 06/07/[address] scan 06/07/2015 1 08/08/2014 Essential hypertension, malignant 03/20/2016 documented as of this encounter (statuses as of 01/10/2023) [address]23[address]2015 History of Past illness Narrative* Problem Noted Date Diagnosed Date Resolved Date Nausea 06/07/2015 06/07/[address] scan 06/07/2015 1 08/08/2014 Essential hypertension, malignant 03/20/2016 documented as of this encounter (statuses as of 02/19/2023) [address]23[address]2015 History of Past illness Narrative* Problem Noted Date Diagnosed Date Resolved Date Nausea 06/07/2015 06/07/[address] scan 06/07/2015 1 08/08/2014 Essential hypertension, malignant 03/20/2016 documented as of this encounter (statuses as of 02/20/2023) [address]23[address]2015 History of Past illness Narrative* Problem Noted Date Diagnosed Date Resolved Date Nausea 06/07/2015 06/07/[address] scan 06/07/2015 1 08/08/2014 Essential hypertension, malignant 03/20/2016 documented as of this encounter (statuses as of 03/11/2023) [address]23-2015 History of Past illness Narrative* Problem Noted Date Diagnosed Date Resolved Date Nausea 06/07/2015 06/07/[address] scan 06/07/2015 1 08/08/2014 Essential hypertension, malignant 03/20/2016 documented as of this encounter (statuses as of 03/15/2023) [address]23-2015 History of Past illness Narrative* Problem Noted Date Diagnosed Date Resolved Date Nausea 06/07/2015 06/07/[address] scan 06/07/2015 1 08/08/2014 Essential hypertension, malignant 03/20/2016 documented as of this encounter (statuses as of 03/15/2023) [address]23[address]2015 History of Past illness Narrative* Problem Noted Date Diagnosed Date Resolved Date Nausea 06/07/2015 06/07/[address] scan 06/07/2015 1 08/08/2014 Essential hypertension, malignant 03/20/2016 documented as of this encounter (statuses as of 04/03/2023) [address]23[address]2015 History of Past illness Narrative* Problem Noted Date Diagnosed Date Resolved Date Nausea 06/07/2015 06/07/[address] scan 06/07/2015 1 08/08/2014 Essential hypertension, malignant 03/20/2016 documented as of this encounter (statuses as of 04/04/2023) [address] History of Past illness Narrative* Problem Noted Date Diagnosed Date Resolved Date Nausea 06/07/2015 06/07/[address] scan 06/07/2015 1 08/08/2014 Essential hypertension, malignant 03/20/2016 documented as of this encounter (statuses as of 04/04/2023) [address]23-2015 History of Past illness Narrative* Problem Noted Date Diagnosed Date Resolved Date Nausea 06/07/2015 06/07/[address] scan 06/07/2015 1 08/08/2014 Essential hypertension, malignant 03/20/2016 documented as of this encounter (statuses as of 04/07/2023) [facility] History of Past illness Narrative* Problem Noted Date Diagnosed Date Resolved Date Nausea 06/07/2015 06/07/[address] scan 06/07/2015 1 08/08/2014 Essential hypertension, malignant 03/20/2016 documented as of this encounter (statuses as of 04/07/2023) [facility] History of Past illness Narrative* Problem Noted Date Diagnosed Date Resolved Date Nausea 06/07/2015 06/07/[address] scan 06/07/2015 1 08/08/2014 Essential hypertension, malignant 03/20/2016 documented as of this encounter (statuses as of 04/09/2023) [facility] History of Past illness Narrative* Problem Noted Date Diagnosed Date Resolved Date Nausea 06/07/2015 06/07/[address] scan 06/07/2015 1 08/08/2014 Essential hypertension, malignant 03/20/2016 documented as of this encounter (statuses as of 04/16/2023) [facility] History of Past illness Narrative* Problem Noted Date Diagnosed Date Resolved Date Nausea 06/07/2015 06/07/[address] scan 06/07/2015 1 08/08/2014 Essential hypertension, malignant 03/20/2016 documented as of this encounter (statuses as of 04/20/2023) [facility] History of Past illness Narrative* Problem Noted Date Diagnosed Date Resolved Date Nausea 06/07/2015 06/07/[address] scan 06/07/2015 1 08/08/2014 Essential hypertension, malignant 03/20/2016 documented as of this encounter (statuses as of 05/14/2023) [address]-2015 History of Past illness Narrative* Problem Noted Date Diagnosed Date Resolved Date Nausea 06/07/2015 06/07/[address] scan 06/07/2015 1 08/08/2014 Essential hypertension, malignant 03/20/2016 documented as of this encounter (statuses as of 05/15/2023) [address]-2015 History of Past illness Narrative* Problem Noted Date Diagnosed Date Resolved Date Nausea 06/07/2015 06/07/[address] scan 06/07/2015 1 08/08/2014 Essential hypertension, malignant 03/20/2016 documented as of this encounter (statuses as of 05/15/2023) [address]-2015 History of Past illness Narrative* Problem Noted Date Diagnosed Date Resolved Date Nausea 06/07/2015 06/07/[address] scan 06/07/2015 1 08/08/2014 Essential hypertension, malignant 03/20/2016 documented as of this encounter (statuses as of 06/06/2023) [address]2015 History of Past illness Narrative* Problem Noted Date Diagnosed Date Resolved Date Nausea 06/07/2015 06/07/[address] scan 06/07/2015 1 08/08/2014 Essential hypertension, malignant 03/20/2016 documented as of this encounter (statuses as of 06/06/2023) [address]2015 History of Past illness Narrative* Problem Noted Date Diagnosed Date Resolved Date Nausea 06/07/2015 06/07/[address] scan 06/07/2015 1 08/08/2014 Essential hypertension, malignant 03/20/2016 documented as of this encounter (statuses as of 07/06/2023) [address]-2015 History of Past illness Narrative* Problem Noted Date Diagnosed Date Resolved Date Nausea 06/07/2015 06/07/[address] scan 06/07/2015 1 08/08/2014 Essential hypertension, malignant 03/20/2016 documented as of this encounter (statuses as of 07/18/2023) [address]2015 History of Past illness Narrative* Problem Noted Date Diagnosed Date Resolved Date Nausea 06/07/2015 06/07/[address] scan 06/07/2015 1 08/08/2014 Essential hypertension, malignant 03/20/2016 documented as of this encounter (statuses as of 08/14/2023) [address]2015 History of Past illness Narrative* Problem Noted Date Diagnosed Date Resolved Date Nausea 06/07/2015 06/07/[address] scan 06/07/2015 1 08/08/2014 Essential hypertension, malignant 03/20/2016 documented as of this encounter (statuses as of 08/15/2023) [address]-2015 History of Past illness Narrative* Problem Noted Date Diagnosed Date Resolved Date Nausea 06/07/2015 06/07/[address] scan 06/07/2015 1 08/08/2014 Essential hypertension, malignant 03/20/2016 documented as of this encounter (statuses as of 08/15/2023) [address]2015 History of Past illness Narrative* Problem Noted Date Diagnosed Date Resolved Date Nausea 06/07/2015 06/07/[address] scan 06/07/2015 1 08/08/2014 Essential hypertension, malignant 03/20/2016 documented as of this encounter (statuses as of 08/22/2023) [address]2015 History of Past illness Narrative* Problem Noted Date Diagnosed Date Resolved Date Nausea 06/07/2015 06/07/[address] scan 06/07/2015 1 08/08/2014 Essential hypertension, malignant 03/20/2016 documented as of this encounter (statuses as of 09/18/2023) [facility] Chidi [facility]ui [facility] Note Date/Time October 06, 2024 4:3 3pm [facility] Medical Records Department [address] [place] [id number] Anesthesia Postop Eval II 10/06/24 1606 MR#: [id number] Acct: [id number] Name: ROSEANNA JONES Rep #:[id number] : 1960 64 From: Chidi Bui MD PCP: Dr. Reed Vazquez MD Status:REG S DC Y Race: C Location: [place] [address]- Anesthesia Postop Eval I Sum Postop Eval [...] MD > Date _ [facility] Bui [facility] Signature: Date CC: ~ Signed [facility] Work Phone: Evaluation noteNo assessment information available [facility] Work Phone: Evaluation note* Diagnosis Encounter for long-term (current) use of medications- Primary Encounter for long-term (current) use of other medications [facility] Diagnosis Onset Date Resolution Status Breast mass, right acute [facility] Work Phone: Evaluation note* Diagnosis Lumbar radiculopathy- Primary Thoracic or lumbosacral neuritis or radiculitis, unspecified Lumbar post-laminectomy syndrome Postlaminectomy syndrome, lumbar region Neck pain Cervicalgia Chronic pain syndrome Encounter for long-term (current) use of medications Encounter for long-term (current) use of other medications [facility] Diagnosis Chronic pain syndrome- Primary [facility] [place] [facility] Diagnosis Parkinson disease (HCC)- Primary Paralysis agitans Cerebrovascular accident (CVA) due to other mechanism (HCC) documented in this encounter [facility] note* Diagnosis Chronic pain syndrome- Primary Encounter for long-term (current) use of medications Encounter for long-term (current) use of other medications Lumbar radiculopathy Thoracic or lumbosacral neuritis or radiculitis, unspecified Postlaminectomy syndrome, lumbar region Cervicalgia documented in this encounter [facility] note* Diagnosis Encounter for long-term (current) use of high-risk medication- Primary Encounter for long-term (current) use of other medications documented in this encounter [facility] note* Diagnosis Chronic pain syndrome- Primary Chronic pain disorder Chronic pain syndrome Lumbar radiculopathy Thoracic or lumbosacral neuritis or radiculitis, unspecified Lumbar post-laminectomy syndrome Postlaminectomy syndrome, lumbar region Encounter for long-term (current) use of medications Encounter for long-term (current) use of other medications documented in this encounter [facility] note* Diagnosis Chronic pain syndrome- Primary Chronic [...] Neck pain Cervicalgia [facility] [place] [facility]* Diagnosis Encounter for long-term (current) use of medications Encounter for long-term (current) use of other medications documented in this encounter [facility] note* Diagnosis Encounter for long-term (current) use of medications- Primary Encounter for long-term (current) use of other medications Lumbar radiculopathy Thoracic or lumbosacral neuritis or radiculitis, unspecified Encounter for long-term (current) use of high-risk medication Encounter for long-term (current) use of other medications Postlaminectomy syndrome, lumbar region Cervicalgia Lumbar post-laminectomy syndrome Postlaminectomy syndrome, lumbar region Other chronic pain documented in this encounter [facility] note* Diagnosis Encounter for long-term (current) use [...] syndrome, lumbar region documented in this encounter [facility] note* Diagnosis Encounter for long-term (current) use [...] pain Cervicalgia Cervicalgia documented in this encounter [facility] note* Diagnosis Encounter for long-term (current) use [...] syndrome, lumbar region documented in this encounter [facility] note* Diagnosis Encounter for long-term (current) use [...] Other chronic pain documented in this encounter [facility] note* Diagnosis High risk medication use- Primary [...] Other chronic pain documented in this encounter [facility] note* Diagnosis Postlaminectomy syndrome, lumbar region- Primary [...] multiple sites, unspecified whether rheumatoid factor present ([facility]) documented in this encounter [facility] note* Diagnosis Encounter for long-term (current) use of medications Encounter for long-term (current) use of other medications Chronic pain syndrome Myofascial pain syndrome Mylagia and myositis, unspecified documented in this encounter [facility] note* Diagnosis Encounter for long-term (current) use [...] Chronic pain syndrome documented in this encounter [facility] note* Diagnosis Encounter for long-term (current) use [...] Chronic pain syndrome documented in this encounter [facility] note* Diagnosis Radiculopathy of lumbar region Thoracic or lumbosacral neuritis or radiculitis, unspecified documented in this encounter [facility] note* Diagnosis Encounter for long-term (current) use [...] Chronic pain syndrome documented in this encounter [facility] note* Diagnosis Encounter for long-term (current) use [...] Chronic pain syndrome documented in this encounter [facility] note* Diagnosis High risk medication use- Primary Encounter for long-term (current) use of other medications documented in this encounter [facility] note* Diagnosis High risk medication use- Primary [...] Chronic pain syndrome documented in this encounter [facility] note* Diagnosis High risk medication use- Primary [...] Chronic pain syndrome documented in this encounter [facility] note* Diagnosis High risk medication use- Primary [...] of other medications documented in this encounter [facility] note* Diagnosis Myofascial pain syndrome Mylagia and myositis, unspecified Chronic pain syndrome documented in this encounter [facility] note* Diagnosis Myofascial pain syndrome- Primary Mylagia [...] Chronic pain syndrome documented in this encounter [facility] note* Diagnosis Myofascial pain syndrome- Primary Mylagia [...] Chronic pain syndrome documented in this encounter [facility] note* Diagnosis Myofascial pain syndrome- Primary Mylagia [...] Chronic pain syndrome documented in this encounter [facility] note* Diagnosis Encounter for long-term opiate analgesic use- Primary Encounter for long-term (current) use of other medications Chronic cervical pain Cervicalgia Myofascial pain syndrome Mylagia and myositis, unspecified Encounter for long-term (current) use of medications Encounter for long-term (current) use of other medications Chronic pain syndrome documented in this encounter [facility] note* Diagnosis Chronic cervical pain Cervicalgia documented in this encounter [facility] note* Diagnosis Encounter for long-term opiate analgesic [...] Chronic pain syndrome documented in this encounter [facility] note* Diagnosis Other chronic pain- Primary Encounter for long-term opiate analgesic use Encounter for long-term (current) use of other medications Myofascial pain syndrome Mylagia and myositis, unspecified Chronic cervical pain Cervicalgia Postlaminectomy syndrome, lumbar region Chronic pain syndrome documented in this encounter [facility] for referral (narrative)No reason for referral [facility] Work Phone: Reason for visit Narrative* Diagnostic Procedure Only (Routine) - Closed Specialty Diagnoses / Procedures Referred By Taty t Referred To Contact XR IMAGING Diagnoses Chronic cervical pain Procedures XR CERV OTHER 4V AP/LAT/OBL RADEX SPINE CERVICAL 4 OR 5 VIEWS Katty Steiner, [employer].MACHINE WHITENER [address] [place] [address] Phone: tel: fax: [place] [phone] Referral ID Status Reason Start Date Expiration Date V isits Requested Visits Authorized [id number] Closed Auto-Generate d Referral 09/09/2024 10/09/2025 1 1 [facility] Summary Purpose Family History Relationship Condition Age at Onset Recorded Date/T jabier brother Cardiac disease Unknown mother Osteoarthritis Unknown Relationship Condition Age at Onset Recorded Date/T jabier brother Cardiac disease Unknown mother Osteoarthritis Unknown Coronary artery disease Unknown Hypertension Unknown Diabetes mellitus Unknown Malignant neoplasm of breast Unknown father Cerebrovascular accident (CVA) Unknown Malignant neoplasm of colon Unknown Advance Directives Advance Directive Response Recorded Date/ Time Advance Directives No April 07, 2015 11:38pm Living Will No April 24 9:32pm Power of Nutrition Specialist Yes April 24, 2021 9:32pm Advance Directive Response Recorded Date/ Time Living Will No October 04, 2024 10:15am Do you have a Healthcare Power of Nutrition Specialist? No October 04, 2024 10:15am Advance Directives No April 07, 2015 11:38pm Reason for Referral Status Reason Specialty Diagnoses / Procedures Referred By Contact Referred To Contact Closed Rheumatology Diagnoses Positive CARLOS (antinuclear antibody) Annalise Randhawa MD [address] [place] [address] Specialty Diagnoses / Procedures Referred By Contac t Referred To Contact MR IMAGING Diagnoses Radiculopathy of lumbar region Procedures MRI LUMBAR SPINE WO/W IVCON MRI SPINAL CANAL LUMBAR W/O & W/CONTR Joyce Schroeder H, DO [address] [place] [address] [place] [address] Referral ID Status Reason Start Date Expiration Date Visits Requested Visits Authorized [id number] Pending Review Auto-Generat ed Referral 02/11/2023 03/12/2024 1 1 Specialty Diagnoses / Procedures Referred By Contac t Referred To Contact Rheumatology Diagnoses Myofascial pain syndrome Postlaminectomy syndrome, lumbar region Cervicalgia Lumbar radiculopathy Procedures CONSULT TO RHEUM/IMMUN DISEASE OFFICE/OUTPATIENT [facility] 60-74 MINUTES Katty Steiner APRN.MACHINE WHITENER [address] [place] [address] Referral ID Status Reason Start Date Expiration Date Visits Requested Visits Authorized [id number] Pending Review PCP Requested Referral 3 04/03/2024 1 1 Specialty Diagnoses / Procedures Referred By Taty mccormick Referred To [facility] [place] Diagnoses Postlaminectomy syndrome, lumbar region Lumbar radiculopathy Procedures CONSULT TO [facility] OFFICE/OUTPATIENT [facility] 60-74 MINUTES Katty Steiner APRN.MACHINE WHITENER [address] [place] [address] Referral ID Status Reason Start Date Expiration Date Visits Requested Visits Authorized [id number] Pending Review PCP Requested Referral 3 04/03/2024 1 1 Referral ID Status Reason Start Date Expiration Date V isits Requested Visits Authorized [id number] Closed Auto-Generate d Referral 02/11/2023 03/12/2024 1 [...] RUQ pain October 06, 2024 1:5 6pm Chief Complaint Admit Date Gastroparesis August 11, 2024 12:37pm Test Result October 19, 2024 2:47pm Diabetes October 25, 2024 8:16a m ESOPHAGEAL VARICES December 01, 2024 9:53 am Reason for Visit Admit Date Loose stools August 11, 2024 12:37pm Nausea August 11, 2024 12:37pm RUQ pain August 11, 2024 12:37pm Loose stools October 06, 2024 1:5 6pm Nausea October 06, 2024 1:5 6pm RUQ pain October 06, 2024 1:5 6pm Esophageal varices October 19, 2024 2:47pm Loose stools October 19, 2024 2:47pm Nausea October 19, 2024 2:47pm Diabetes mellitus October 25, 2024 8:16a m Gastroparesis October 25, 2024 8:16a m Hyperlipidemia October 25, 2024 8:16a m Obesity October 25, 2024 8:16a m Polyneuropathy due to type 2 diabetes me llitus October 25, 2024 8:16am Chief Complaint Admit Date Test Result October 19, 2024 2:47pm Diabetes October 25, 2024 8:16a m ESOPHAGEAL VARICES December 01, 2024 9:53 am Left lower quadrant pain January 06, 2025 1:22pm Reason for Visit Admit Date Loose stools October 06, 2024 1:5 6pm Nausea October 06, 2024 1:5 6pm RUQ pain October 06, 2024 1:5 6pm Esophageal varices October 19, 2024 2:47pm Loose stools October 19, 2024 2:47pm Nausea October 19, 2024 2:47pm Diabetes mellitus October 25, 2024 8:16a m Gastroparesis October 25, 2024 8:16a m Hyperlipidemia October 25, 2024 8:16a m Obesity October 25, 2024 8:16a m Polyneuropathy due to type 2 diabetes me llitus October 25, 2024 8:16am Chief Complaint Admit Date Test Result October 19, 2024 2:47pm Diabetes October 25, 2024 8:16a m ESOPHAGEAL VARICES December 01, 2024 9:53 am Left lower quadrant pain January 06, 2025 1:22pm 3 M FU January 28, 2025 1: 45pm Reason for Visit Admit Date Loose stools October 06, 2024 1:5 6pm Nausea October 06, 2024 1:5 6pm RUQ pain October 06, 2024 1:5 6pm Esophageal varices October 19, 2024 2:47pm Loose stools October 19, 2024 2:47pm Nausea October 19, 2024 2:47pm Diabetes mellitus October 25, 2024 8:16a m Gastroparesis October 25, 2024 8:16a m Hyperlipidemia October 25, 2024 8:16a m Obesity October 25, 2024 8:16a m Polyneuropathy due to type 2 diabetes me llitus October 25, 2024 8:16am Liver fibrosis January 28, 2025 1: 45pm Additional Source Comments INFORMATION SOURCE (unrecogn ized section and content) DATE CREATED AUTHOR 03/14/2018 [facility] ([place]) DATE CREATED AUTHOR AUTHOR'S ORGANIZ ATION 08/21/2019 [facility] DATE CREATED AUTHOR AUTHOR'S ORGANIZ ATION 04/12/2023 [facility] DATE CREATED AUTHOR AUTHOR'S ORGANIZ ATION 10/27/2023 [facility] DATE CREATED AUTHOR AUTHOR'S ORGANIZ ATION 01/08/2025 [facility] DATE CREATED AUTHOR AUTHOR'S ORGANIZ ATION 01/25/2025 [facility] Goals (unrecognized section and content) Goals may [...] or prosecute any alcohol or drug abuse patient.[facility] the event this information is protected by the Federal Confidentiality of Alcohol and Drug Abuse Patient Records regulations: The Federal rules restrict any use of the information to criminally investigate or prosecute any alcohol or drug abuse patient.[facility] HospitalIn the event this information is protected by the Federal Confidentiality of Alcohol and Drug Abuse Patient Records regulations: The Federal rules restrict any use of the information to criminally investigate or prosecute any alcohol or drug abuse patient.[facility] HospitalIn the event this information is protected by the Federal Confidentiality of Alcohol and Drug Abuse Patient Records regulations: The Federal rules restrict any use of the information to criminally investigate or prosecute any alcohol or drug abuse patient.[facility] HospitalIn the event this information is protected by the Federal Confidentiality of Alcohol and Drug Abuse Patient Records regulations: The Federal rules restrict any use of the information to criminally investigate or prosecute any alcohol or drug abuse patient.[facility] HospitalIn the event this information is protected by the Federal Confidentiality of Alcohol and Drug Abuse Patient Records regulations: The Federal rules restrict any use of the information to criminally investigate or prosecute any alcohol or drug abuse patient.[facility] HospitalIn the event this information is protected by the Federal Confidentiality of Alcohol and Drug Abuse Patient Records regulations: The Federal rules restrict any use of the information to criminally investigate or prosecute any alcohol or drug abuse patient.[facility]In the event this information is protected by the Federal Confidentiality of Alcohol and Drug Abuse Patient Records regulations: The Federal rules restrict any use of the information to criminally investigate or prosecute any alcohol or drug abuse patient.[facility] HospitalIn the event this information is protected by the Federal Confidentiality of Alcohol and Drug Abuse Patient Records regulations: The Federal rules restrict any use of the information to criminally investigate or prosecute any alcohol or drug abuse patient.[facility] the event this information is protected by the Federal Confidentiality of Alcohol and Drug Abuse Patient Records regulations: The Federal rules restrict any use of the information to criminally investigate or prosecute any alcohol or drug abuse patient.[facility] HospitalIn the event this information is protected by the Federal Confidentiality of Alcohol and Drug Abuse Patient Records regulations: The Federal rules restrict any use of the information to criminally investigate or prosecute any alcohol or drug abuse patient.[facility] HospitalIn the event this information is protected by the Federal Confidentiality of Alcohol and Drug Abuse Patient Records regulations: The Federal rules restrict any use of the information to criminally investigate or prosecute any alcohol or drug abuse patient.[facility] HospitalIn the event this information is protected by the Federal Confidentiality of Alcohol and Drug Abuse Patient Records regulations: The Federal rules restrict any use of the information to criminally investigate or prosecute any alcohol or drug abuse patient.[facility] HospitalIn the event this information is protected by the Federal Confidentiality of Alcohol and Drug Abuse Patient Records regulations: The Federal rules restrict any use of the information to criminally investigate or prosecute any alcohol or drug abuse patient.[facility] HospitalIn the event this information is protected by the Federal Confidentiality of Alcohol and Drug Abuse Patient Records regulations: The Federal rules restrict any use of the information to criminally investigate or prosecute any alcohol or drug abuse patient.[facility] HospitalIn the event this information is protected by the Federal Confidentiality of Alcohol and Drug Abuse Patient Records regulations: The Federal rules restrict any use of the information to criminally investigate or prosecute any alcohol or drug abuse patient.[facility] HospitalIn the event this information is protected by the Federal Confidentiality of Alcohol and Drug Abuse Patient Records regulations: The Federal rules restrict any use of the information to criminally investigate or prosecute any alcohol or drug abuse patient.[facility] HospitalIn the event this information is protected by the Federal Confidentiality of Alcohol and Drug Abuse Patient Records regulations: The Federal rules restrict any use of the information to criminally investigate or prosecute any alcohol or drug abuse patient.[facility] HospitalIn the event this information is protected by the Federal Confidentiality of Alcohol and Drug Abuse Patient Records regulations: The Federal rules restrict any use of the information to criminally investigate or prosecute any alcohol or drug abuse patient.[facility] HospitalIn the event this information is protected by the Federal Confidentiality of Alcohol and Drug Abuse Patient Records regulations: The Federal rules restrict any use of the information to criminally investigate or prosecute any alcohol or drug abuse patient.[facility] HospitalIn the event this information is protected by the Federal Confidentiality of Alcohol and Drug Abuse Patient Records regulations: The Federal rules restrict any use of the information to criminally investigate or prosecute any alcohol or drug abuse patient.[facility] HospitalIn the event this information is protected by the Federal Confidentiality of Alcohol and Drug Abuse Patient Records regulations: The Federal rules restrict any use of the information to criminally investigate or prosecute any alcohol or drug abuse patient.[facility] HospitalIn the event this information is protected by the Federal Confidentiality of Alcohol and Drug Abuse Patient Records regulations: The Federal rules restrict any use of the information to criminally investigate or prosecute any alcohol or drug abuse patient.[facility] HospitalIn the event this information is protected by the Federal Confidentiality of Alcohol and Drug Abuse Patient Records regulations: The Federal rules restrict any use of the information to criminally investigate or prosecute any alcohol or drug abuse patient.[facility] HospitalIn the event this information is protected by the Federal Confidentiality of Alcohol and Drug Abuse Patient Records regulations: The Federal rules restrict any use of the information to criminally investigate or prosecute any alcohol or drug abuse patient.[facility] HospitalIn the event this information is protected by the Federal Confidentiality of Alcohol and Drug Abuse Patient Records regulations: The Federal rules restrict any use of the information to criminally investigate or prosecute any alcohol or drug abuse patient.[facility] HospitalIn the event this information is protected by the Federal Confidentiality of Alcohol and Drug Abuse Patient Records regulations: The Federal rules restrict any use of the information to criminally investigate or prosecute any alcohol or drug abuse patient.[facility] HospitalIn the event this information is protected by the Federal Confidentiality of Alcohol and Drug Abuse Patient Records regulations: The Federal rules restrict any use of the information to criminally investigate or prosecute any alcohol or drug abuse patient.[facility] HospitalIn the event this information is protected by the Federal Confidentiality of Alcohol and Drug Abuse Patient Records regulations: The Federal rules restrict any use of the information to criminally investigate or prosecute any alcohol or drug abuse patient.[facility] HospitalIn the event this information is protected by the Federal Confidentiality of Alcohol and Drug Abuse Patient Records regulations: The Federal rules restrict any use of the information to criminally investigate or prosecute any alcohol or drug abuse patient.[facility] HospitalIn the event this information is protected by the Federal Confidentiality of Alcohol and Drug Abuse Patient Records regulations: The Federal rules restrict any use of the information to criminally investigate or prosecute any alcohol or drug abuse patient.[facility] HospitalIn the event this information is protected by the Federal Confidentiality of Alcohol and Drug Abuse Patient Records regulations: The Federal rules restrict any use of the information to criminally investigate or prosecute any alcohol or drug abuse patient.[facility] HospitalIn the event this information is protected by the Federal Confidentiality of Alcohol and Drug Abuse Patient Records regulations: The Federal rules restrict any use of the information to criminally investigate or prosecute any alcohol or drug abuse patient.[facility] HospitalIn the event this information is protected by the Federal Confidentiality of Alcohol and Drug Abuse Patient Records regulations: The Federal rules restrict any use of the information to criminally investigate or prosecute any alcohol or drug abuse patient.[facility] HospitalIn the event this information is protected by the Federal Confidentiality of Alcohol and Drug Abuse Patient Records regulations: The Federal rules restrict any use of the information to criminally investigate or prosecute any alcohol or drug abuse patient.[facility] HospitalIn the event this information is protected by the Federal Confidentiality of Alcohol and Drug Abuse Patient Records regulations: The Federal rules restrict any use of the information to criminally investigate or prosecute any alcohol or drug abuse patient.[facility] HospitalIn the event this information is protected by the Federal Confidentiality of Alcohol and Drug Abuse Patient Records regulations: The Federal rules restrict any use of the information to criminally investigate or prosecute any alcohol or drug abuse patient.[facility] HospitalIn the event this information is protected by the Federal Confidentiality of Alcohol and Drug Abuse Patient Records regulations: The Federal rules restrict any use of the information to criminally investigate or prosecute any alcohol or drug abuse patient.[facility] HospitalIn the event this information is protected by the Federal Confidentiality of Alcohol and Drug Abuse Patient Records regulations: The Federal rules restrict any use of the information to criminally investigate or prosecute any alcohol or drug abuse patient.[facility] HospitalIn the event this information is protected by the Federal Confidentiality of Alcohol and Drug Abuse Patient Records regulations: The Federal rules restrict any use of the information to criminally investigate or prosecute any alcohol or drug abuse patient.[facility] HospitalIn the event this information is protected by the Federal Confidentiality of Alcohol and Drug Abuse Patient Records regulations: The Federal rules restrict any use of the information to criminally investigate or prosecute any alcohol or drug abuse patient.[facility] HospitalIn the event this information is protected by the Federal Confidentiality of Alcohol and Drug Abuse Patient Records regulations: The Federal rules restrict any use of the information to criminally investigate or prosecute any alcohol or drug abuse patient.[facility] HospitalIn the event this information is protected by the Federal Confidentiality of Alcohol and Drug Abuse Patient Records regulations: The Federal rules restrict any use of the information to criminally investigate or prosecute any alcohol or drug abuse patient.[facility] HospitalIn the event this information is protected by the Federal Confidentiality of Alcohol and Drug Abuse Patient Records regulations: The Federal rules restrict any use of the information to criminally investigate or prosecute any alcohol or drug abuse patient.[facility] HospitalIn the event this information is protected by the Federal Confidentiality of Alcohol and Drug Abuse Patient Records regulations: The Federal rules restrict any use of the information to criminally investigate or prosecute any alcohol or drug abuse patient.[facility] HospitalIn the event this information is protected by the Federal Confidentiality of Alcohol and Drug Abuse Patient Records regulations: The Federal rules restrict any use of the information to criminally investigate or prosecute any alcohol or drug abuse patient.[facility] HospitalIn the event this information is protected by the Federal Confidentiality of Alcohol and Drug Abuse Patient Records regulations: The Federal rules restrict any use of the information to criminally investigate or prosecute any alcohol or drug abuse patient.[facility] HospitalIn the event this information is protected by the Federal Confidentiality of Alcohol and Drug Abuse Patient Records regulations: The Federal rules restrict any use of the information to criminally investigate or prosecute any alcohol or drug abuse patient.[facility] HospitalIn the event this information is protected by the Federal Confidentiality of Alcohol and Drug Abuse Patient Records regulations: The Federal rules restrict any use of the information to criminally investigate or prosecute any alcohol or drug abuse patient.[facility] HospitalIn the event this information is protected by the Federal Confidentiality of Alcohol and Drug Abuse Patient Records regulations: The Federal rules restrict any use of the information to criminally investigate or prosecute any alcohol or drug abuse patient.[facility] HospitalIn the event this information is protected by the Federal Confidentiality of Alcohol and Drug Abuse Patient Records regulations: The Federal rules restrict any use of the information to criminally investigate or prosecute any alcohol or drug abuse patient.[facility] HospitalIn the event this information is protected by the Federal Confidentiality of Alcohol and Drug Abuse Patient Records regulations: The Federal rules restrict any use of the information to criminally investigate or prosecute any alcohol or drug abuse patient.[facility] HospitalIn the event this information is protected by the Federal Confidentiality of Alcohol and Drug Abuse Patient Records regulations: The Federal rules restrict any use of the information to criminally investigate or prosecute any alcohol or drug abuse patient.[facility] HospitalIn the event this information is protected by the Federal Confidentiality of Alcohol and Drug Abuse Patient Records regulations: The Federal rules restrict any use of the information to criminally investigate or prosecute any alcohol or drug abuse patient.[facility] HospitalIn the event this information is protected by the Federal Confidentiality of Alcohol and Drug Abuse Patient Records regulations: The Federal rules restrict any use of the information to criminally investigate or prosecute any alcohol or drug abuse patient.[facility] HospitalIn the event this information is protected by the Federal Confidentiality of Alcohol and Drug Abuse Patient Records regulations: The Federal rules restrict any use of the information to criminally investigate or prosecute any alcohol or drug abuse patient.[facility] HospitalIn the event this information is protected by the Federal Confidentiality of Alcohol and Drug Abuse Patient Records regulations: The Federal rules restrict any use of the information to criminally investigate or prosecute any alcohol or drug abuse patient.[facility] HospitalIn the event this information is protected by the Federal Confidentiality of Alcohol and Drug Abuse Patient Records regulations: The Federal rules restrict any use of the information to criminally investigate or prosecute any alcohol or drug abuse patient.[facility] HospitalIn the event this information is protected by the Federal Confidentiality of Alcohol and Drug Abuse Patient Records regulations: The Federal rules restrict any use of the information to criminally investigate or prosecute any alcohol or drug abuse patient.[facility] HospitalIn the event this information is protected by the Federal Confidentiality of Alcohol and Drug Abuse Patient Records regulations: The Federal rules restrict any use of the information to criminally investigate or prosecute any alcohol or drug abuse patient.[facility] HospitalIn the event this information is protected by the Federal Confidentiality of Alcohol and Drug Abuse Patient Records regulations: The Federal rules restrict any use of the information to criminally investigate or prosecute any alcohol or drug abuse patient.[facility] HospitalIn the event this information is protected by the Federal Confidentiality of Alcohol and Drug Abuse Patient Records regulations: The Federal rules restrict any use of the information to criminally investigate or prosecute any alcohol or drug abuse patient.[facility] HospitalIn the event this information is protected by the Federal Confidentiality of Alcohol and Drug Abuse Patient Records regulations: The Federal rules restrict any use of the information to criminally investigate or prosecute any alcohol or drug abuse patient.[facility] HospitalIn the event this information is protected by the Federal Confidentiality of Alcohol and Drug Abuse Patient Records regulations: The Federal rules restrict any use of the information to criminally investigate or prosecute any alcohol or drug abuse patient.[facility] HospitalIn the event this information is protected by the Federal Confidentiality of Alcohol and Drug Abuse Patient Records regulations: The Federal rules restrict any use of the information to criminally investigate or prosecute any alcohol or drug abuse patient.[facility] HospitalIn the event this information is protected by the Federal Confidentiality of Alcohol and Drug Abuse Patient Records regulations: The Federal rules restrict any use of the information to criminally investigate or prosecute any alcohol or drug abuse patient.[facility] HospitalIn the event this information is protected by the Federal Confidentiality of Alcohol and Drug Abuse Patient Records regulations: The Federal rules restrict any use of the information to criminally investigate or prosecute any alcohol or drug abuse patient.[facility] HospitalIn the event this information is protected by the Federal Confidentiality of Alcohol and Drug Abuse Patient Records regulations: The Federal rules restrict any use of the information to criminally investigate or prosecute any alcohol or drug abuse patient.[facility] HospitalIn the event this information is protected by the Federal Confidentiality of Alcohol and Drug Abuse Patient Records regulations: The Federal rules restrict any use of the information to criminally investigate or prosecute any alcohol or drug abuse patient.[facility] HospitalIn the event this information is protected by the Federal Confidentiality of Alcohol and Drug Abuse Patient Records regulations: The Federal rules restrict any use of the information to criminally investigate or prosecute any alcohol or drug abuse patient.[facility] HospitalIn the event this information is protected by the Federal Confidentiality of Alcohol and Drug Abuse Patient Records regulations: The Federal rules restrict any use of the information to criminally investigate or prosecute any alcohol or drug abuse patient.[facility] HospitalIn the event this information is protected by the [facility] Confidentiality of Alcohol and Drug Abuse Patient Records regulations: The Federal rules restrict any use of the information to criminally investigate or prosecute any alcohol or drug abuse patient.[facility] HospitalIn the event this information is protected by the Federal Confidentiality of Alcohol and Drug Abuse Patient Records regulations: The Federal rules restrict any use of the information to criminally investigate or prosecute any alcohol or drug abuse patient.[facility] Care Teams (unrecognized sec tion and content) Induction Heating Equipment Setter Relationship Specialty Start Date End Date Annalise Randhawa MD [address] [place], [place] [id number] PCP - General Family Practice 05/15/16 Induction Heating Equipment Setter Relationship Specialty Start Date End Date Annalise Randhawa MD [address] [facility] [place] [place] [id number] PCP - General Family Practice 05/15/16 Induction Heating Equipment Setter Relationship Specialty Start Date End Date Annalise Randhawa MD [address] [facility] [place], [place] [id number] PCP - General Family Practice 05/15/16 Induction Heating Equipment Setter Relationship Specialty Start Date End Date Annalise Randhawa MD [address] [place] [address] PCP - General Family Practice 05/15/16 Induction Heating Equipment Setter Relationship Specialty Start Date End Date Annalise Randhawa MD [address] [place] [address] PCP - General Family Practice 05/15/16 Induction Heating Equipment Setter Relationship Specialty Start Date End Date Annalise Randhawa MD [address] [place] [address] PCP - General Family Practice 05/15/16 Induction Heating Equipment Setter Relationship Specialty Start Date End Date Annalise Randhawa MD [address] [place] [address] PCP - General Family Practice 05/15/16 Induction Heating Equipment Setter Relationship Specialty Start Date End Date Annalise Randhawa MD [address] [place] [address] PCP - General Family Practice 05/15/16 Induction Heating Equipment Setter Relationship Specialty Start Date End Date Annalise Randhawa MD [address] [place] [address] PCP - General Family Practice 05/15/16 Induction Heating Equipment Setter Relationship Specialty Start Date End Date Annalise Randhawa MD [address] [place] [address] PCP - General Family Medicine 05/15/16 Induction Heating Equipment Setter Relationship Specialty Start Date End Date Annalise Randhawa MD [address] [place] [address] PCP - General Family Medicine 05/15/16 Induction Heating Equipment Setter Relationship Specialty Start Date End Date Annalise Randhawa MD [address] [place] [address] PCP - General Family Medicine 05/15/16 Induction Heating Equipment Setter Relationship Specialty Start Date End Date Annailse Randhawa MD [address] [place] [address] [place] [address] PCP - General Family Medicine 05/15/16 Induction Heating Equipment Setter Relationship Specialty Start Date End Date Annalise Randhawa MD [address] [place] [address] PCP - General Family Medicine 05/15/16 Induction Heating Equipment Setter Relationship Specialty Start Date End Date Annalise Randhawa MD [address] [place] [address], [place] [address] PCP - General Family Medicine 05/15/16 Induction Heating Equipment Setter Relationship Specialty Start Date End Date Annalise Randhawa MD [address] [place] [address], [place] [address] PCP - General Family Medicine 05/15/16 Induction Heating Equipment Setter Relationship Specialty Start Date End Date Annalise Randhawa MD [address] [place] [address], [place] [address] PCP - General Family Medicine 05/15/16 Induction Heating Equipment Setter Relationship Specialty Start Date End Date Annalise Randhawa MD [address] [place] [address], [place] [address] PCP - General Family Medicine 05/15/16 Induction Heating Equipment Setter Relationship Specialty Start Date End Date Annalise Randhawa MD [address] [place] [address] [place] [address] PCP - General Family Medicine 05/15/16 Team Status: Active Member Role Status Dates Dr. Clemente Randhawa MD Family Provider Active Dr. Clemente Randhawa MD Primary Care Provider Activ e Team Status: Inactive Member Role Status Dates Dr. Clemente Randhawa MD Primary Care Provider, Attending Provider, Referring Provider Active Induction Heating Equipment Setter Relationship Specialty Start Date End Date Annalise Randhawa MD [address] [place] [address] PCP - General Family Medicine 05/15/16 Induction Heating Equipment Setter Relationship Specialty Start Date End Date Annalise Randhawa MD [address] [place] [address] PCP - General Family Medicine 05/15/16 Induction Heating Equipment Setter Relationship Specialty Start Date End Date Annalise Randhawa MD [address] [place] [address] PCP - General Family Medicine 05/15/16 Induction Heating Equipment Setter Relationship Specialty Start Date End Date Annalise Randhawa MD [address] [place] [address] PCP - General Family Medicine 05/15/16 Induction Heating Equipment Setter Relationship Specialty Start Date End Date Annalise Randhawa MD [address] [place] [address] PCP - General Family Medicine 05/15/16 Induction Heating Equipment Setter Relationship Specialty Start Date End Date Annalise Randhawa MD [address] [place] [address] PCP - General Family Medicine 05/15/16 Induction Heating Equipment Setter Relationship Specialty Start Date End Date Annalise Randhawa MD [address] [place] [address] PCP - General Family Medicine 05/15/16 Induction Heating Equipment Setter Relationship Specialty Start Date End Date Annalise Randhawa MD [address] [place] [address] PCP - General Family Medicine 05/15/16 Induction Heating Equipment Setter Relationship Specialty Start Date End Date Annalise Randhawa MD [address] [place] [address] PCP - General Family Medicine 05/15/16 Induction Heating Equipment Setter Relationship Specialty Start Date End Date Annalise Randhawa MD [address] [place] [address] PCP - General Family Medicine 05/15/16 Induction Heating Equipment Setter Relationship Specialty Start Date End Date Annalise Randhawa MD [address] [place] [address] PCP - General Family Medicine 05/15/16 Induction Heating Equipment Setter Relationship Specialty Start Date End Date Annalise Randhawa MD [address] [place] [address] PCP - General Family Medicine 05/15/16 Induction Heating Equipment Setter Relationship Specialty Start Date End Date Annalise Randhawa MD [address] [place] [address] PCP - General Family Medicine 05/15/16 Induction Heating Equipment Setter Relationship Specialty Start Date End Date Annalise Randhawa MD [address] [place] [address] PCP - General Family Medicine 05/15/16 Induction Heating Equipment Setter Relationship Specialty Start Date End Date Annalies Randhawa MD [address] [place] [address] PCP - General Family Medicine 05/15/16 Induction Heating Equipment Setter Relationship Specialty Start Date End Date Annalise Randhawa MD [address] [place] [address] PCP - General Family Medicine 05/15/16 Induction Heating Equipment Setter Relationship Specialty Start Date End Date Annalise Randhawa MD [address] [place] [address] PCP - General Family Medicine 05/15/16 Induction Heating Equipment Setter Relationship Specialty Start Date End Date Annalise Randhawa MD [address] [place] [address] PCP - General Family Medicine 05/15/16 Induction Heating Equipment Setter Relationship Specialty Start Date End Date Annalise Randhawa MD [address] [place] [address] PCP - General Family Medicine 05/15/16 Induction Heating Equipment Setter Relationship Specialty Start Date End Date Annalise Randhawa MD [address] [place] [address] PCP - General Family Medicine 05/15/16 Induction Heating Equipment Setter Relationship Specialty Start Date End Date Annalise Randhawa MD [address] [place] [address] PCP - General Family Medicine 05/15/16 Induction Heating Equipment Setter Relationship Specialty Start Date End Date Annalise Randhawa MD [address] [place] [address] PCP - General Family Medicine 05/15/16 Induction Heating Equipment Setter Relationship Specialty Start Date End Date Annalise Randhawa MD [address] [facility] [place], [place] [address] PCP - General Family Medicine 05/15/16 Induction Heating Equipment Setter Relationship Specialty Start Date End Date Annalise Randhawa MD [address] [facility] [place] [id number] PCP - General Family Medicine 05/15/16 Induction Heating Equipment Setter Relationship Specialty Start Date End Date Annalise Randhawa MD [address] [place], [place] [address] PCP - General Family Medicine 05/15/16 Team [...] Provider Active St art: October 06, 2024 Induction Heating Equipment Setter Relationship Specialty Start Date End Date Annalise Randhawa MD [address] [facility] [place], [place] [address] PCP - General Family Medicine 05/15/16 Induction Heating Equipment Setter Relationship Specialty Start Date End Date Annalise Randhawa MD [address] [facility] [place] [address] PCP - General Family Medicine 05/15/16 Team Status: Active Member Role Status Dates Boby Bhakta MD Primary Care Provider Active Team Status: Inactive Member Role Status Dates Dr. Reed Vazquez MD Primary Care Provider Active Start: October 19, 2024 End: October 19, 2024 Dr. Reed Vazquez MD Referring Provider Active Start: October 19, 2024 End: October 19, 2024 ARELY Jacinto Attending Provider Active Start: October 19, 2024 End: October 19, 2024 Team Status: Inactive Member Role Status Dates Dr. Alfred Solano MD Attending Provider Active Sta rt: October 25, 2024 End: October 25, 2024 Boby Bhakta MD Primary Care Provider Active St art: October 25, 2024 End: October 25, 2024 Boby Bhakta MD Referring Provider Active Start : October 25, 2024 End: October 25, 2024 Team Status: Inactive Member Role Status Dates ARELY Jacinto Attending Provider Active Start: December 01, 2024 End: December 01, 2024 ARELY Jacinto Referring Provider Active Start: December 01, 2024 End: December 01, 2024 Boby Bhakta MD Primary Care Provider Active St art: December 01, 2024 End: December 01, 2024 Induction Heating Equipment Setter Relationship Specialty Start Date End Date Annalise Randhawa MD [address] [place] [address] [place] [address] PCP - General Family Medicine 05/15/16 Team Status: Active Member Role/Relationship Status Dates Dr. Reed Vazquez MD Primary Care Provider Active Team Status: Inactive Member Role/Relationship Status Dates Dr. Reed Vazquez MD Primary Care Provider Active Start: October 06, 2024 End: October 06, 2024 Dr. Reed Vazquez MD Referring Provider Active Start: October 06, 2024 End: October 06, 2024 Dr. Polo Mac DO Attending Provider Active Start: October 06, 2024 End: October 06, 2024 Team Status: Active Member Role/Relationship Status Dates Dr. Reed Vazquez MD Primary Care Provider Active Start: October 06, 2024 Dr. Reed Vazquez MD Referring Provider Active Start: October 06, 2024 Dr. Polo Mac DO Attending Provider Active Start: October 06, 2024 Dr. Polo Mac DO Other Provider Active St art: October 06, 2024 Team Status: Inactive Member Role/Relationship Status Dates Dr. Reed Vazquez MD Primary Care Provider Active Start: October 19, 2024 End: October 19, 2024 Dr. Reed Vazquez MD Referring Provider Active Start: October 19, 2024 End: October 19, 2024 ARELY Jacinto Attending Provider Active Start: October 19, 2024 End: October 19, 2024 Team Status: Inactive Member Role/Relationship Status Dates Dr. Alfred Solano MD Attending Provider Active Sta rt: October 25, 2024 End: October 25, 2024 Boby Bhakta MD Primary Care Provider Active St art: October 25, 2024 End: October 25, 2024 Boby Bhakta MD Referring Provider Active Start : October 25, 2024 End: October 25, 2024 Team Status: Inactive Member Role/Relationship Status Dates ARELY Jacinto Attending Provider Active Start: December 01, 2024 End: December 01, 2024 ARELY Jacinto Referring Provider Active Start: December 01, 2024 End: December 01, 2024 Boby Bhakta MD Primary Care Provider Active St art: December 01, 2024 End: December 01, 2024 Team Status: Active Member Role/Relationship Status Dates Dr. Reed Vazquez MD Primary Care Provider Active Start: January 06, 2025 Dr. Reed Vazquez MD Attending Provider Active Start: January 06, 2025 Dr. Reed Vazquez MD Referring Provider Active Start: January 06, 2025 Team Status: Inactive Member Role/Relationship Status Dates Dr. Reed Vazquez MD Primary Care Provider Active Start: January 06, 2025 End: January 06, 2025 Dr. Reed Vazquez MD Attending Provider Active Start: January 06, 2025 End: January 06, 2025 Dr. Reed Vazquez MD Referring Provider Active Start: January 06, 2025 End: January 06, 2025 Team Status: Inactive Member Role/Relationship Status Dates Dr. Reed Vazquez MD Primary Care Provider Active Start: January 06, 2025 End: January 06, 2025 Dr. Reed Vazquez MD Attending Provider Active Start: January 06, 2025 End: January 06, 2025 Dr. Reed Vazquez MD Referring Provider Active Start: January 06, 2025 End: January 06, 2025 Team Status: Inactive Member Role/Relationship Status Dates Dr. eRed Vazquez MD Primary Care Provider Active Start: January 28, 2025 End: January 28, 2025 Dr. 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 [employer] provides no warranty or guarantee of the accuracy or completeness of information in this document.
[2025-01-31 14:08] LABS: Anti-Chromatin <0.2 AI (0.0-0.9); Anti-Jo <0.2 AI (0.0-0.9); Anti-dsDNA Ab <1 IU/mL (0-9); SJOGREN'S Anti-SS-A test < 0.2 AI (0.0-0.9); SJOGREN'S Anti-SS-B test < 0.2 AI (0.0-0.9)
[2025-02-02 23:08] LABS: Anti-Smooth Muscle ABS 2 Units (0-19); Copper, Serum or Plasma 116 ug/dL (80-158); Cytoplasmic Ab (C-ANCA) <1:20 titer (Neg:<1:20); HEPATITIS B SURFACE AG Negative (Negative); Hep C Antibodies Non Reactive (Non Reactive); Perinuclear Ab (P-ANCA) <1:20 titer (Neg:<1:20)
== END | disposition home or self-care (01) ==
LOC: LAB 14:13
PROVIDERS: PCP Family Medicine; Referring Provider Student in an Organized Health Care Education/Training Program; Visit Provider Student in an Organized Health Care Education/Training Program
DX: K74.00 Hepatic fibrosis, unspecified (principal)
CPT/HCPCS: 36415; 80053; 80074; 82140; 82390; 82525; 82728; 83516; 85025; 86037; 86140; 86225; 86235

== ENCOUNTER → 2025-02-17 | Outpatient (CLI) | payer MEDICARE, MEDICAID, SELFPAY ==
--- NOTE | 2025-02-17 11:14 | MRI_ITS ---
PROCEDURE: MRI ABD WITH AND W/O CONTRAST 02/17/2025 REASON FOR EXAM: CHOLEDOCHAL CYST, LIVER CYST Diabetes, lupus, Parkinson's disease. TECHNIQUE: Procedure Code: [id number] Modality: MR Procedure: MRI ABD WITH AND W/O CONTRAST Multiplanar and multisequence images were obtained. CONTRAST: Clariscan VOLUME: 18 mL COMPARISON: January 06, 2025 FINDINGS: Liver: Minimal fatty infiltration. No solid mass is seen, but there is a cyst in segment 2 measuring 14 mm. This is benign. Main portal vein is patent. Biliary: Cholecystectomy. No choledocholithiasis seen. The proximal portion of the common bile duct measures up to 10 mm and gently tapers towards the ampulla; the cystic duct remnant is mildly dilated. No filling defects seen. There is no underlying mass of the pancreatic head or near the ampulla. Pancreas: Normal. No mass. No pancreatic duct dilation or pancreas divisum Spleen: Normal spleen. Small splenule. Adrenals: Normal Kidneys: Normal Peritoneum / Retroperitoneum: Unremarkable Lymph Nodes: None appear enlarged Major Vessels: Normal Bowel: Colonic diverticulosis. Bones: Degenerative changes of the spine. Lower lumbar fusion. MRI/MRI Abd WITH and W/O Contrast IMPRESSION: 1. Minimal diffuse fatty liver. 2. Simple cyst left lobe liver. No follow-up required. 3. Cholecystectomy. Mildly dilated common bile duct with no mass or choledoch olithiasis. This is likely on the basis of the reservoir effect that. Correlate with laboratory indices. 4. Colonic diverticulosis. Reading Location: [id number]
== END | disposition home or self-care (01) ==
LOC: MRI 11:05
PROVIDERS: PCP Family Medicine; Referring Provider Student in an Organized Health Care Education/Training Program; Visit Provider Student in an Organized Health Care Education/Training Program
DX: K74.00 Hepatic fibrosis, unspecified (principal); K76.89 Other specified diseases of liver; Q44.4 Choledochal cyst
CPT/HCPCS: 74183; A9575; A4216